=== PATIENT | male | born 1940 | race Caucasian/White ===

== ENCOUNTER 2019-05-19 14:06 | Outpatient (CLI) | payer OTHER, SELFPAY ==
[2019-05-19 16:36] LABS: Free T4 Free Thyroxine 1.68 ng/mL (0.78-2.19)
[2019-05-22 06:13] LABS: Thyroid Peroxidase Antibodies <1 IU/mL (<9)
[2019-05-23 05:10] LABS: Triiodothyronine T3 Free 2.3 pg/mL (2.3-4.2)
== END 2019-05-19 14:07 | disposition home or self-care (01) ==
LOC: ANHWCLAB 14:11
PROVIDERS: PCP Internal Medicine; Visit Provider Internal Medicine Endocrinology, Diabetes & Metabolism
DX: E03.9 Hypothyroidism, unspecified (principal); E04.9 Nontoxic goiter, unspecified
CPT/HCPCS: 36415; 84439; 84443; 84481; 86376

== ENCOUNTER 2019-07-02 13:27 | Outpatient (CLI) | payer MEDICARE, SELFPAY ==
--- NOTE | ~2019-07-02 | XR_ITS ---
EXAMINATION: XR chest 2V DATE: 07/02/2019 14:02 INDICATION: +PPD TECHNIQUE: PA and lateral views of the chest are obtained. COMPARISON: 06/25/2018 FINDINGS: There is a small right pleural effusion with slight increase in size since the comparison e xamination. Right basilar airspace opacities have also slightly increased. The left lung is clear. Th ere is no pneumothorax. There is mild thoracic spondylosis. IMPRESSION: 1. Small right pleural effusion with slight increase in size. 2. Minimal increase in right basilar airspace opacity, likely passive atelectasis. Reviewed, dictated and finalized at location A. IMPRESSION: 1. Small right pleural effusion with slight increase in size. 2. Minimal increase in right basilar airspace opacity, likely passive atelectas is.
== END 2019-07-02 13:28 | disposition home or self-care (01) ==
PROVIDERS: PCP Internal Medicine; Visit Provider Internal Medicine Nephrology
DX: R76.11 Nonspecific reaction to tuberculin skin test without active tuberculosis (principal); J90 Pleural effusion, not elsewhere classified
CPT/HCPCS: 71046

== ENCOUNTER 2019-07-15 13:58 | Outpatient (CLI) | payer MEDICARE, SELFPAY ==
--- NOTE | ~2019-07-15 | US_ITS ---
EXAMINATION: US art doppler w press LE BI EXAM DATE: 07/15/2019 14:59 INDICATION: Hypertension, stent. Peripheral arterial disease, nonhealing ulcer left lower extremity m edially. TECHNIQUE: Segmental pressures and plethysmographic and Doppler waveforms of the brachial and lower e xtremity arteries were obtained. There is no prior study for comparison. FINDINGS: Right and left brachial artery pressures of 174 mm Hg and 192 mm Hg, respectively, are concordant (no rmal difference <= 30 mmHg). RIGHT LEG: The ankle-brachial index (ITALO) is could not obtain (normal >= 0.9-1). The great toe-brachial index (TBI) is 0.10 (normal >= 0.65). The lower extremity ratios, segmental pressure gradients as follows; Proximal superficial femoral artery:- Could not obtain, stents ( mmHg). Distal superficial femoral artery: ----- Could not obtain, stents ( mmHg). Popliteal: Could not obtain ( mmHg). Dorsalis pedis: Could not obtain ( mmHg). Posterior tibial: Could not obtain ( mmHg). (Normal gradients <= 20-30 mmHg between adjacent levels on the same leg or the same levels on the two legs). Arterial waveforms are monophasic. LEFT LEG: The ankle-brachial index (ITALO) is could not obtain (normal >= 0.9-1). The great toe-brachial index (TBI) is could not obtain (normal >= 0.65). The lower extremity ratios, segmental pressure gradients as follows; Proximal superficial femoral artery:- 0.74 (143 mmHg). Distal superficial femoral artery: ----- Could not obtain ( mmHg). Popliteal: Could not obtain ( mmHg). Dorsalis pedis: Could not obtain ( mmHg). Posterior tibial: Could not obtain ( mmHg). (Normal gradients <= 20-30 mmHg between adjacent levels on the same leg or the same levels on the two legs). Arterial waveforms are monophasic. IMPRESSION: Could not cuff occlude arteries, could not obtain ABIs. Monophasic waveforms. Reviewed, dictated and finalized at location A.
== END 2019-07-15 13:59 | disposition home or self-care (01) ==
PROVIDERS: PCP Internal Medicine; Visit Provider Podiatrist Foot & Ankle Surgery
DX: I73.9 Peripheral vascular disease, unspecified (principal); L97.929 Non-pressure chronic ulcer of unspecified part of left lower leg with unspecified severity
CPT/HCPCS: 93923

== ENCOUNTER 2019-08-04 14:10 | Outpatient (CLI) | payer MEDICARE, SELFPAY ==
--- NOTE | ~2019-08-04 | US_ITS ---
EXAMINATION: US venous doppler [facility] DATE: 08/04/2019 14:47 INDICATION: Left lower limb pain and swelling. TECHNIQUE: Grayscale ultrasound images without and with compression and Doppler ultrasound images of the left lower extremity veins were obtained. COMPARISON: Ultrasound 06/04/2015 FINDINGS: The visualized portions of left common femoral vein, profunda (deep) femoral vein, femoral vein, popl iteal vein, peroneal veins, posterior tibial veins, and greater saphenous vein outflow are patent. Hoffmann bcutaneous edema is noted. IMPRESSION: 1. No deep venous thrombosis. Reviewed, dictated and finalized at location E.
== END 2019-08-04 14:11 | disposition home or self-care (01) ==
PROVIDERS: PCP Internal Medicine; Visit Provider Podiatrist Foot & Ankle Surgery
DX: M79.89 Other specified soft tissue disorders (principal); M79.662 Pain in left lower leg
CPT/HCPCS: 93971

== ENCOUNTER 2019-08-19 07:45 | Outpatient (RCR) | payer MEDICARE, SELFPAY ==
[2019-08-12 13:51] VITALS: BMI 25.9
== END 2019-10-26 07:57 | disposition home or self-care (01) ==
LOC: ANHWOC 07:45
PROVIDERS: Visit Provider Podiatrist Foot & Ankle Surgery
DX: E11.621 Type 2 diabetes mellitus with foot ulcer (principal); L97.529 Non-pressure chronic ulcer of other part of left foot with unspecified severity
CPT/HCPCS: 99212; G0463

== ENCOUNTER 2019-08-27 10:06 | Outpatient (CLI) | payer MEDICARE, SELFPAY ==
--- NOTE | ~2019-08-27 | US_ITS ---
US renal BI 08/27/2019 10:39 Procedure: Realtime transabdominal ultrasound of the kidneys and bladder. Indication: Hematuria Comparison: No prior studies for comparison. Findings: Renal echotexture is normal bilaterally without hydronephrosis, contour deforming mass or r enal calculus. The right kidney measures 10.3 cm and left kidney measures 9.6 cm. There is echogenic soft tissue along the bladder margin. Enlarged prostate gland.. Impression: 1: Echogenic soft tissue along the bladder margin, suspicious for transitional cell carcinoma. Recomm end further clinical evaluation. Reviewed, dictated and finalized at location A. Impression: 1: Echogenic soft tissue along the bladder margin, suspicious for transitional cell carcinoma. Recommend further clinical evaluation.
== END 2019-08-27 10:07 | disposition home or self-care (01) ==
LOC: ANHIMG 10:07
PROVIDERS: Visit Provider Urology
DX: R31.0 Gross hematuria (principal)
CPT/HCPCS: 76775

== ENCOUNTER 2019-09-01 10:51 | Observation (INO) | payer MEDICARE, SELFPAY ==
[2019-09-01] VITALS (17 sets, daily range): BP systolic 117–147; BP diastolic 47–84; PULSE 67–111; RESP 18–20; TEMP 36.8; O2SAT 92–100; BMI 24.3
--- NOTE | ~2019-09-01 | CT_ITS ---
EXAMINATION: CT abdomen pelvis wo con DATE: 09/01/2019 11:41 INDICATION: Diffuse abdominal pain, history of peritoneal dialysis, hematuria and bladder tumor TECHNIQUE: Computed tomography (CT) of the abdomen and pelvis was performed without intravenous contr ast. The dose-length product (DLP) was 377.45 mGy-cm. Automated exposure control and iterative recons truction technique were employed. COMPARISON: 10/04/2006 FINDINGS: There is a small to moderate-sized right pleural effusion which resultant passive right low er lobe atelectasis. The heart size is normal. Calcified bilateral hilar lymph nodes and calcified pu lmonary nodules are consistent with old granulomatous disease. Stones are present in the nondistended gallbladder. Punctate calcifications in an otherwise normal spleen likely represent healed granuloma tous disease. The liver, pancreas, and adrenal glands are normal. There is mild bilateral atrophy of the kidneys. There is calcified atherosclerosis of the aorta and many of the other arteries. A small volume of ascites is present. A peritoneal dialysis catheter enters the left lower quadrant and coils in the pelvis. Colonic diverticulosis is present without evidence of diverticulitis. There is severe lumbar spondylosis. No pathologically enlarged abdominal or pelvic lymph nodes are identified. Ther e is no free intraperitoneal gas or evidence of bowel obstruction. IMPRESSION: 1. No CT correlate for the patient's symptoms. 2. Small to moderate size right pleural effusion with passive atelectasis of the right lower lobe. Reviewed, dictated and finalized at location A. IMPRESSION: 1. No CT correlate for the patient's symptoms. 2. Small to moderate size right pleural effusion with passive atelectasis of th e right lower lobe.
[2019-09-01 11:09] LABS: Basophils Percent Auto 0.4 % (0.2-1.2); Eosinophils Absolute Auto 0.2 K/mm3 (0-0.3); Hematocrit 28.7 % (42.0-52.0); Hemoglobin 9.1 g/dL (14.0-18.0); Immature Granulocyte Absolute 0.02 K/mm3 (0.00-0.031); Immature Granulocyte Percent A 0.3 % (0-0.5); Lymphocytes Percent Auto 17.2 % (18.3-44.2); Mean Corpuscular HGB Conc 31.7 g/dl (32-36); Mean Corpuscular Hemoglobin 29.8 pg (26-34); Mean Corpuscular Volume 94.1 fl (80-100); Mean Platelet Volume 9.8 fl (7.4-10.4); Monocytes Absolute Auto 0.8 K/mm3 (0.1-0.6); Monocytes Percent Auto 10.9 % (2.6-8.5); Neutrophils Absolute Auto 4.8 K/mm3 (1.3-6.7); Neutrophils Percent Auto 68.2 % (45.5-73.1); Platelet Count Result 384 k/mm3 (150-375); Red Blood Count 3.05 M/mm3 (4.6-6.20); Red Cell Distribution Width 16.2 % (11.5-14.5)
--- NOTE | 2019-09-01 11:23 | ED.ABDPAIN ---
HPI - Abdominal Pain General Chief Complaint: Abdominal Pain <Karla Ellison PA-C - Last Filed: 09/01/19 13:45> Stated Complaint: ABD PAIN <Karla Ellison PA-C - Last Filed: 09/01/19 13:45> Time Seen by Provider: 09/01/19 10:53 <Karla Ellison PA-C - Last Filed: 09/01/19 13:45> Source: patient <SHENG Macias Last Filed: 09/01/19 13:45> Mode of arrival: EMS <SHENG Macias Last Filed: 09/01/19 13:45> Limitations: no limitations <Karla Ellison PA-C - Last Filed: 09/01/19 13:45> History of Present Illness HPI narrative: This is a 78-year-old male that presents the emergency department for abdominal pain x3 days. Reports diffuse abdominal pain. Associated with nausea. Reports he does peritoneal dialysis nightly. His wooden box maker is Dr. Joseph. Reports he is currently seeing a human resources benefits coordinator for a wound to his left great toe. Also reports he was supposed to have a bladder tumor removed by Dr. John last Saturday, but this was postponed. Reports he has been having hematuria due to bladder tumor. Reports a mild temperature a couple of days ago. Denies vomiting, diarrhea, hematochezia, dysuria. <Karla Ellison PA-C - Last Filed: 09/01/19 13:45> Related Data Home Medications: Home Medications Medication Instructions Recorded Confirmed B complex-vitamin C-folic acid 0.8 1 tablet PO DAILY 03/24/19 09/01/19 mg tablet atorvastatin 80 mg tablet 80 mg PO DAILY 03/24/19 09/01/19 carvedilol 25 mg tablet 25 mg PO Q12H 03/24/19 09/01/19 clopidogrel 75 mg tablet 75 mg PO DAILY 03/24/19 09/01/19 fluticasone propionate 50 1 spray NASAL DAILY 03/24/19 09/01/19 mcg/actuation nasal spray,suspension gabapentin 100 mg capsule 200 mg PO DAILY 03/24/19 09/01/19 insulin regular human 100 unit/mL 1 sliding scale dose SUB-Q 03/24/19 09/01/19 injection solution USEASDIRECTD torsemide 100 mg tablet 100 mg PO QAM 03/24/19 09/01/19 acetaminophen 325 mg capsule 325 mg PO Q6H PRN 05/14/19 09/01/19 cholecalciferol (vitamin D3) 50 50 mcg PO DAILY 05/14/19 09/01/19 mcg (2,000 unit) capsule Lacto.acidophilus-Bif.animalis 1 cap PO DAILY 08/24/19 09/01/19 [Probiotic] amlodipine 2.5 mg PO DAILY 08/24/19 09/01/19 aspirin [Aspir-81] 81 mg PO DAILY 08/24/19 09/01/19 magnesium oxide 400 mg PO DAILY 08/24/19 09/01/19 potassium chloride 20 meq PO DAILY 08/24/19 09/01/19 <Karla Ellison PA-C - Last Filed: 09/01/19 13:45> Allergies/Adverse Reactions: Allergies Allergy/AdvReac Type Severity Reaction Status Date / Time amoxicillin Allergy Unknown Dizziness Verified 09/01/19 10:52 Penicillins Allergy Unknown Dizziness Verified 09/01/19 10:52 <Karla Ellison PA-C - Last Filed: 09/01/19 13:45> Review of Systems Review of Systems: Narrative: CONSTITUTIONAL: Denies fever GASTROINTESTINAL: Reports abdominal pain, nausea. Denies vomiting, or diarrhea. GENITOURINARY: Reports hematuria. Denies dysuria <Karla Ellison PA-C - Last Filed: 09/01/19 13:45> All systems reviewed & are unremarkable except as noted in HPI and below <Karla Ellison PA-C - Last Filed: 09/01/19 13:45> PMFSH Social History Social History: Social History Smoking status: Never smoker Alcohol intake: never Substance use: never Gender identity (if verbalized by the patient): Male <SHENG Macias Last Filed: 09/01/19 13:45> Exam Narrative: Exam Narrative: GENERAL: Chronically ill-appearing, well-nourished, and in no acute distress. HEAD: Normocephalic, atraumatic. EYES: EOMI. CHEST: Clear to auscultation. No respiratory distress. No wheezes rales or rhonchi HEART: Regular rate and rhythm. No murmur heard. Normal peripheral pulses. ABDOMEN: Soft, nondistended, normal active bowel sounds. Tender palpation throughout the abdomen, without guarding. Peritoneal dialysis catheter in place without surrounding erythema or ed
[2019-09-01 11:30] LABS: Lactic Acid Reflex 1.1 mmol/L (0.7-2.1)
[2019-09-01 11:36] LABS: Alanine Aminotransferase 42 U/L (4-50); Albumin Level 2.7 g/dL (3.5-5.1); Alkaline Phosphatase 106 U/L (38-126); Aspartate Amino Transferase 56 U/L (17-59); Bilirubin,Total 0.2 mg/dL (0.2-1.3); Blood Urea Nitrogen 21 mg/dL (9-20); Calcium 7.7 mg/dL (8.4-10.2); Carbon Dioxide 33 mmol/L (22-30); Chloride 93 mmol/L (98-107); Estimated CRCL calculation 13 ml/min; Estimated Glomerular Filt Rate 16; Glucose 157 mg/dL (75-110); Potassium 3.2 mmol/L (3.4-5.0); Sodium 131 mmol/L (137-145)
[2019-09-01] MEDS: ONDANSETRON INJ 4 MG/2 ML VIAL IV PUSH ×2 (11:42→23:13)
[2019-09-01] MEDS: MORPHINE SULFATE 2 MG/ML INJ IV PUSH (11:42)
[2019-09-01 11:50] LABS: CRP 25.7 mg/dL (<1.0)
--- NOTE | 2019-09-01 12:06 | PC.NURSE ---
CALLED LAB AND ADDED ON THE BNP ORDER
[2019-09-01] MEDS: POTASSIUM CHLORIDE 20 MEQ TABLET PO (12:13)
[2019-09-01 12:25] LABS: NT Pro B Type Natriuretic Pept 7430 PG/ML (5-100)
[2019-09-01 18:27] LABS: Appearance Peritoneal Fluid Cloudy (Clear); Source Peritoneal Fluid Peritoneal Fluid
[2019-09-01 18:28] LABS: Color Peritoneal Fluid White (Colorless); Lymphocytes Peritoneal Fluid 2 %; Mesothelial Cells Peritoneal Fluid 1 %; Monocytes Peritoneal Fluid 1 %; Neutrophils Peritoneal Fluid 96 % (0-25); Nucleated Cells Peritoneal Flu 6591 /uL (0-500); RBC Peritoneal Fluid 0 /uL (0-100000)
[2019-09-01 19:09] LABS: Glucose Point of Care 109 (65-105)
--- NOTE | 2019-09-01 20:07 | PC.NURSE ---
This patient, Ángel Fung, was admitted to [facility] Surg Room 313-01. Patient/family oriented to hospital policies and general routines including ID bracelet, bed and alarms, visiting hours, pain management, procedures, bathroom and other care routines, personal items, smoking policy, room service/diet, and visiting hours. Valuables list has been completed. Information on how to activate the Rapid Response Team has been discussed. Patient/Family are encouraged to report perceived risks to care and to ask questions if they do not understand what they are told or what they should do.
--- NOTE | 2019-09-01 20:30 | PM.IMHP ---
H&P: HPI History of Present Illness Chief complaint: Abdominal pain. Narrative: Ángel Fung is a 78-year-old male with end-stage renal disease on peritoneal dialysis, insulin-dependent diabetes, hypertension, coronary artery disease, peripheral vascular disease, and chronic anemia who presented to the emergency department earlier this morning for evaluation of abdominal pain. He notes a gradual onset of diffuse abdominal pain beginning last afternoon. At the outset he described a moderate aching discomfort, however this morning he was experiencing sharp shooting pain throughout the abdomen. His abdomen is also been a bit bloated. He had similar symptoms a couple of years ago when he was hospitalized at [facility] for what sounds like diverticulitis. CT scan of the abdomen and pelvis today did not demonstrate any acute findings, but given his continued and diffuse abdominal pain it was thought that perhaps he may have spontaneous bacterial peritonitis and he is being admitted in this setting. His abdominal pain is much better after receiving IV pain medication in the emergency department, which brought the pain from 10/25 to 05/25. Peritoneal fluid was obtained this evening for culture, the patient notes that it was cloudy. He is comfortable at the time my evaluation and really does not have any complaints. He does share with me that peritoneal fluid was drawn he had a low-grade fever over the weekend, up to 100? and had night sweats last evening. He is always cold, thus he cannot say whether not he has had chills. He tells me that he is always cold, and that is unchanged. His appetite has been as per usual and he maintains a steady weight, typically only fluctuating 4 pounds or so. He has not had nausea or vomiting. He still urinates and denies dysuria. His bowel movements have been normal. Review of Systems Review of Systems: Narrative: Twelve systems were reviewed with pertinent positives and negatives as per HPI. He denies sinus congestion, rhinorrhea, otalgia, and odynophagia. No chest pain or shortness of breath. He denies recent travel and sick contacts. He has been passing gas without issue. No GERD symptoms. He has had intermittent hematuria over the past month and had a cystoscopy per Dr. John recently which showed a bladder tumor, and he has an upcoming surgery for further management. At the time of the initial evaluation, he was also found to have urinary tract infection for which she was treated with Bactrim. Also of note, he has noticed a lump in his right breast, and has been referred to Dr. Biggs for further evaluation. His primary care provider thinks that it may be due to 1 of his medications. His diabetes is well controlled, but he notes that occasionally his glucose will be higher than usual depending on what dialysate he uses. No blurry vision, polydipsia, or polyuria. He is currently seeing Dr. Juarez and the wound care nurses for a left great toe ulcer. Except as documented, all other systems were reviewed and are negative. [facility] Past Medical History Medical History (Updated 09/01/19 @ 23:56 by Emily Vines PA-C) Anemia of chronic disease Arthritis Back pain Bladder tumor Scheduled for cystoscopy with resection of bladder tumor per Dr. John in summer 2019. Coronary artery disease With history of stent. Diabetic peripheral neuropathy End-stage renal disease on peritoneal dialysis Glaucoma Glaucoma Hearing loss Hyperlipidemia Hypertension Hypothyroidism Insulin dependent type 2 diabetes mellitus Osteomyelitis (~05/2015) Peripheral arterial disease History of right lower extremity stent. Surgical History Surgical History (Updated 09/01/19 @ 17:21 by Emily Vines PA-C) Amputation of fifth toe of right foot (~05/2015) History of heart artery stent (~10/2014) History of vascular surgery Right lower extremity stent. Status post cataract extraction Hailey
[2019-09-01] MEDS: carvediloL 25 MG TABLET PO (21:14)
[2019-09-01 21:31] LABS: Glucose Point of Care 133 (65-105)
[2019-09-01 22:47] LABS: Add Urine Microscopic? YES; Appearance Urine Clear (Clear); Bacteria Urine Trace /hpf; Bilirubin Urine Negative (Negative); Blood Urine 2+ (Negative); Color Urine Yellow (Yellow); Glucose Urine UA Negative (Negative); Ketones Urine Negative (Negative); Leukocyte Esterase Ur Negative LEU/UL (Negative); Mucus Urine Rare /lpf; Nitrate Urine Negative (Negative); Protein Urine 2+ mg/dL (Negative); RBC Urine >75 /hpf (0-2); Specific Grav Ur 1.013 (1.001-1.035); Urobilinogen Urine Negative mg/dL (<2.0)
[2019-09-02] VITALS (7 sets, daily range): BP systolic 105–128; BP diastolic 43–78; PULSE 52–71; RESP 16–18; TEMP 36.4–36.7; O2SAT 97–100
[2019-09-02] MEDS: LEVOTHYROXINE SODIUM 75 MCG TABLET PO (05:30)
[2019-09-02 06:39] LABS: Basophils Percent Auto 0.5 % (0.2-1.2); Eosinophils Absolute Auto 0.2 K/mm3 (0-0.3); Eosinophils Percent Auto 2.2 % (0-4.4); Hematocrit 25.8 % (42.0-52.0); Hemoglobin 8.2 g/dL (14.0-18.0); Immature Granulocyte Absolute 0.04 K/mm3 (0.00-0.031); Immature Granulocyte Percent A 0.5 % (0-0.5); Lymphocytes Absolute Auto 1.59 K/mm3 (0.9-3.2); Mean Corpuscular HGB Conc 31.8 g/dl (32-36); Mean Corpuscular Hemoglobin 29.9 pg (26-34); Mean Corpuscular Volume 94.2 fl (80-100); Mean Platelet Volume 9.6 fl (7.4-10.4); Monocytes Absolute Auto 0.9 K/mm3 (0.1-0.6); Monocytes Percent Auto 10.3 % (2.6-8.5); Neutrophils Absolute Auto 5.6 K/mm3 (1.3-6.7); Neutrophils Percent Auto 67.5 % (45.5-73.1); Platelet Count Result 374 k/mm3 (150-375); Red Blood Count 2.74 M/mm3 (4.6-6.20); Red Cell Distribution Width 15.9 % (11.5-14.5); White Blood Count 8.4 K/mm3 (4.5-10.0)
[2019-09-02 06:53] LABS: Blood Urea Nitrogen 23 mg/dL (9-20); Calcium 7.5 mg/dL (8.4-10.2); Carbon Dioxide 34 mmol/L (22-30); Chloride 94 mmol/L (98-107); Estimated CRCL calculation 12 ml/min; Estimated Glomerular Filt Rate 15; Glucose 117 mg/dL (75-110); Magnesium 1.6 mg/dL (1.6-2.3); Potassium 3.6 mmol/L (3.4-5.0); Sodium 130 mmol/L (137-145)
--- NOTE | 2019-09-02 08:10 | PM.CNNEP ---
Assessment and Plan Assessment and plan (1) Abdominal pain: Qualifiers: Abdominal location: generalized Qualified Code(s): R10.84 - Generalized abdominal pain Code(s): R10.9 - Unspecified abdominal pain Status: Acute Assessment and Plan: The patient has cloudy fluid, elevated white cells in the fluid, and abdominal pain. This is most likely dialysis associated peritonitis. Unfortunately he took antibiotics before he came in. This may affect culture results. We will see what grows. He is currently on vancomycin and Fortaz. Will re-dose the vancomycin in 5 days and give the Fortaz daily in the last bag. I do not think we need to continue the because he does not have a fever or a white count. He did get blood cultures and we can restart them if the cultures come back positive but I think this is low likelihood. He is already getting an cephalosporin intraperitoneal a so I do not want to double it up with the IV cephalosporin. 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 We will follow this. (3) Type 2 diabetes mellitus: Code(s): E11.9 - Type 2 diabetes mellitus without complications Status: Acute Assessment and Plan: The patient is on Accu-Cheks and sliding-scale insulin. (4) Coronary artery disease: Code(s): I25.10 - Atherosclerotic heart disease of [place] coronary artery without angina pectoris Status: Acute Assessment and Plan: The patient has no chest pain or shortness of breath. (5) End-stage renal disease on peritoneal dialysis: Code(s): N18.6 - End stage renal disease; Z99.2 - Dependence on renal dialysis Status: Acute Assessment and Plan: Continue peritoneal dialysis History of Present Illness Reason for Consult Consult date: 09/03/19 Chief Complaint Chief complaint: Abdominal pain. History of Present Illness Narrative: Ángel is a very pleasant 78-year-old gentleman was multiple medical problems including hypertension, diabetes, hyperlipidemia, peripheral vascular disease status post bilateral lower extremity stents, coronary disease status post stents in his heart, hypothyroidism, and end-stage renal disease on peritoneal dialysis. He has been on peritoneal dialysis for about 3 years. He has not had any complications. He did have 1 episode of diverticulitis which cause a sympathetic peritoneal leukocytosis however had not had an episode of peritonitis otherwise. The patient says that he was well until Saturday when he was having some abdominal discomfort. He did not call the dialysis nurse. He did not check his fluid. On Saturday the patient had much worse abdominal discomfort. He felt that me he might have an infection. He did not check his fluid again and he did not call the nurse. However eat he did have some antibiotics which he started taking. On Saturday and Saturday he felt gradually a little bit better but then yesterday the patient felt bad again with the abdominal pain. Also he was unable to drain his fluid in the morning. So he decided to go to the emergency room. In the ER he had abdominal pain. He had a CT scan which showed no diverticulitis. The dialysis nurse was called in to check the fluid. They called the on-call ship fastener who ordered vancomycin and Fortaz intraperitoneal overnight. Today he feels a little better. He does not remember having any issue where he might have had contamination. He does have an ulcer on his left foot which he has been fighting along with the wound clinic. This was mostly local wound care. It was apparently not felt to be infected because he has not been on antibiotics. His end-stage renal disease is from diabetes h
--- NOTE | 2019-09-02 08:21 | PM.EVENT ---
Event Note Event Note Event Note: On peritoneal dialysis and tolerating it well. Will recheck a white count in a few days He was seen at 8:00 a.m.
[2019-09-02] MEDS: ASPIRIN 81 MG ENTERIC TABLET PO (08:37)
[2019-09-02] MEDS: GABAPENTIN 100 MG CAPSULE 200 MG PO (08:38)
[2019-09-02] MEDS: TORSEMIDE 20 MG TABLET 100 MG PO (08:38)
[2019-09-02] MEDS: CHOLECALCIFEROL 1,000 UNIT TABLET 2000 UNITS PO (08:39)
[2019-09-02] MEDS: FLUTICASONE PROPIONATE 0.05% NA SPR 16 GM BTL (*BKC) 1 SPRAY NASAL (08:39)
[2019-09-02] MEDS: POTASSIUM CHLORIDE 20 MEQ TABLET.ER PO (08:41)
[2019-09-02] MEDS: ACIDOPHILUS/BULGARICUS CHEWABLE TABLET 1 TABLET PO (08:42)
[2019-09-02] MEDS: VITAMIN B CMPLX/VIT C/FOLIC AC 1 CAPSULE 1 CAP PO (08:42)
[2019-09-02] MEDS: ATORVASTATIN 40 MG TABLET 80 MG PO (08:42)
[2019-09-02] MEDS: carvediloL 25 MG TABLET PO ×2 (08:43→20:51)
[2019-09-02] MEDS: MAGNESIUM OXIDE 400 MG TABLET PO (08:43)
[2019-09-02] MEDS: CLOPIDOGREL BISULFATE 75 MG TABLET PO (08:44)
[2019-09-02] MEDS: AMLODIPINE BESYLATE 2.5 MG TABLET PO (08:44)
[2019-09-02 09:13] LABS: Glucose Point of Care 89 (65-105)
[2019-09-02 09:16] LABS: Hemoglobin A1C 6.2 % (<5.7)
[2019-09-02 12:45] LABS: Glucose Point of Care 125 (65-105)
[2019-09-02 13:47] LABS: Free T4 Free Thyroxine Reflex 1.49 ng/dL (0.78-2.19)
[2019-09-02 15:02] LABS: Total Triiodothyronine (T3) 0.61 NG/ML (0.97-1.69)
--- NOTE | 2019-09-02 16:20 | PM.IMPN ---
Progress Note: A&P Assessment and Plan (1) Diffuse abdominal pain: Code(s): R10.84 - Generalized abdominal pain Status: Acute Assessment and Plan: No acute findings noted on CT of the abdomen and pelvis. He had a low-grade fever over the weekend, but has a normal white count at this time without a left shift. His CRP, however, is markedly elevated 25.7 and , pending Gram stain and culture of peritoneal fluid antibiotics have been started (2) End-stage renal disease on peritoneal dialysis: Code(s): N18.6 - End stage renal disease; Z99.2 - Dependence on renal dialysis Status: Acute Assessment and Plan: Nephrology seeing for peritoneal dialysis orders and added to dialysate (3) Anemia of chronic disease: Code(s): D63.8 - Anemia in other chronic diseases classified elsewhere Status: Acute Assessment and Plan: Hemoglobin and hematocrit are stable on review of previous labs., will check Fe studies too (4) Electrolyte abnormality: Code(s): E87.8 - Other disorders of electrolyte and fluid balance, not elsewhere classified Status: Acute Assessment and Plan: Mild electrolyte abnormalities including hyponatremia, hypokalemia, and hypochloremia. (5) Hypertension: Qualifiers: Hypertension type: secondary to endocrine disorders Qualified Code(s): I15.2 - Hypertension secondary to endocrine disorders Code(s): I10 - Essential (primary) hypertension Status: Acute Assessment and Plan: Blood pressures were reviewed and they are stable. Continue antihypertensives and monitor daily. (6) Coronary artery disease: Code(s): I25.10 - Atherosclerotic heart disease of [place] coronary artery without angina pectoris Status: Acute Assessment and Plan: No acute issues. Continue aspirin, clopidogrel, and statin. (7) Hypothyroidism: Qualifiers: Hypothyroidism type: acquired Qualified Code(s): E03.9 - Hypothyroidism, unspecified Code(s): E03.9 - Hypothyroidism, unspecified Status: Acute Assessment and Plan: Continue levothyroxine and check TSH. (8) Insulin dependent type 2 diabetes mellitus: Code(s): E11.9 - Type 2 diabetes mellitus without complications; Z79.4 - nursing home (current) use of insulin Status: Acute Assessment and Plan: Continue insulin and hemoglobin A1c.only 6.2 Initiate sliding scale insulin, Accu-Cheks, and hypoglycemic protocol. Subjective Date/time seen: 09/02/19 16:20 Interval history: Date of visit 09/01. 78-year-old hypertensive type 2 diabetic with end-stage renal disease on peritoneal dialysis presented with abdominal discomfort 3-4 days duration and found to have peritonitis. Peritoneal fluid from dialysate has been cultured and is receiving intra-abdominal antibiotics with his dialysis. Feels better today less abdominal pain and had BM yesterday. No fever chills Exam Narrative: Exam Narrative: General: Well-developed elderly male supine in bed watching television in no distress. HEENT: Pupil equal reactive to light, sclera anicteric Neck: Supple. Respiratory: Diminished at the right base, otherwise clear to auscultation. Cardiovascular: Regular rate and rhythm with S1-S2. 2/6 systolic murmur best heard at the upper sternal border. Gastrointestinal: Abdomen is slightly distended and tender to percussion and palpation throughout. Catheter dialysis site is clean and dry. . Bowel sounds are present. No voluntary guarding or rebound tenderness. Skin: Warm, dry, a
[2019-09-02 17:17] LABS: Glucose Point of Care 127 (65-105)
[2019-09-02 21:00] LABS: Glucose Point of Care 199 (65-105)
[2019-09-03] MEDS: LEVOTHYROXINE SODIUM 75 MCG TABLET PO (05:33)
[2019-09-03 06:00] VITALS: BP 152/54; PULSE 70; RESP 16; TEMP 36.7; O2SAT 96
[2019-09-03 06:32] LABS: Basophils Absolute Auto 0.1 K/mm3 (0.0-0.1); Basophils Percent Auto 0.6 % (0.2-1.2); Eosinophils Absolute Auto 0.3 K/mm3 (0-0.3); Eosinophils Percent Auto 4.3 % (0-4.4); Hematocrit 27.9 % (42.0-52.0); Hemoglobin 8.7 g/dL (14.0-18.0); Immature Granulocyte Absolute 0.03 K/mm3 (0.00-0.031); Immature Granulocyte Percent A 0.4 % (0-0.5); Lymphocytes Absolute Auto 1.76 K/mm3 (0.9-3.2); Lymphocytes Percent Auto 22.8 % (18.3-44.2); Mean Corpuscular HGB Conc 31.2 g/dl (32-36); Mean Corpuscular Hemoglobin 29.8 pg (26-34); Mean Corpuscular Volume 95.5 fl (80-100); Monocytes Absolute Auto 0.8 K/mm3 (0.1-0.6); Monocytes Percent Auto 10.6 % (2.6-8.5); Neutrophils Absolute Auto 4.7 K/mm3 (1.3-6.7); Neutrophils Percent Auto 61.3 % (45.5-73.1); Platelet Count Result 398 k/mm3 (150-375); Red Blood Count 2.92 M/mm3 (4.6-6.20); Red Cell Distribution Width 15.9 % (11.5-14.5); White Blood Count 7.7 K/mm3 (4.5-10.0)
[2019-09-03 06:48] LABS: Albumin Level 2.3 g/dL (3.5-5.1); Blood Urea Nitrogen 22 mg/dL (9-20); Calcium 7.7 mg/dL (8.4-10.2); Carbon Dioxide 31 mmol/L (22-30); Chloride 93 mmol/L (98-107); Estimated CRCL calculation 13 ml/min; Estimated Glomerular Filt Rate 17; Glucose 205 mg/dL (75-110); Phosphorus 3.2 mg/dL (2.5-4.5); Potassium 3.3 mmol/L (3.4-5.0); Sodium 128 mmol/L (137-145)
[2019-09-03 07:02] LABS: Iron 59 ug/dL (49-181)
[2019-09-03 07:12] LABS: Percent Iron Saturation 54 % (20-50)
[2019-09-03 08:24] LABS: Ferritin > 2000.00 ng/mL (11.1-264)
[2019-09-03] MEDS: FLUTICASONE PROPIONATE 0.05% NA SPR 16 GM BTL (*BKC) 1 SPRAY NASAL (08:43)
[2019-09-03] MEDS: AMLODIPINE BESYLATE 2.5 MG TABLET PO (08:44)
[2019-09-03] MEDS: ACIDOPHILUS/BULGARICUS CHEWABLE TABLET 1 TABLET PO (08:44)
[2019-09-03] MEDS: CHOLECALCIFEROL 1,000 UNIT TABLET 2000 UNITS PO (08:44)
[2019-09-03] MEDS: ASPIRIN 81 MG ENTERIC TABLET PO (08:44)
[2019-09-03 08:45] VITALS: PULSE 64
[2019-09-03] MEDS: ATORVASTATIN 40 MG TABLET 80 MG PO (08:45)
[2019-09-03] MEDS: carvediloL 25 MG TABLET PO (08:45)
[2019-09-03] MEDS: GABAPENTIN 100 MG CAPSULE 200 MG PO (08:46)
[2019-09-03] MEDS: MAGNESIUM OXIDE 400 MG TABLET PO (08:46)
[2019-09-03] MEDS: POTASSIUM CHLORIDE 20 MEQ TABLET.ER PO (08:46)
[2019-09-03] MEDS: CLOPIDOGREL BISULFATE 75 MG TABLET PO (08:46)
[2019-09-03] MEDS: VITAMIN B CMPLX/VIT C/FOLIC AC 1 CAPSULE 1 CAP PO (08:47)
[2019-09-03] MEDS: TORSEMIDE 20 MG TABLET 100 MG PO (08:47)
[2019-09-03 09:05] LABS: Glucose Point of Care 134 (65-105)
[2019-09-03 10:47] LABS: Appearance Peritoneal Fluid Clear (Clear); Color Peritoneal Fluid Colorless (Colorless); Lymphocytes Peritoneal Fluid 9 %; Monocytes Peritoneal Fluid 13 %; Neutrophils Peritoneal Fluid 72 % (0-25); Nucleated Cells Peritoneal Flu 843 /uL (0-500); RBC Peritoneal Fluid 11 /uL (0-100000); Source Peritoneal Fluid Peritoneal Fluid
[2019-09-03 10:48] LABS: Macrophages Peritoneal Fluid 3 %; Mesothelial Cells Peritoneal Fluid 3 %
[2019-09-03 12:29] LABS: Glucose Point of Care 149 (65-105)
--- NOTE | 2019-09-03 13:29 | PM.PNNEP ---
Progress Note: A&P Assessment and Plan (1) Abdominal pain: Qualifiers: Abdominal location: generalized Qualified Code(s): R10.84 - Generalized abdominal pain Code(s): R10.9 - Unspecified abdominal pain Status: Acute Assessment and Plan: The patient has dialysis associated peritonitis. CT negative for diverticulitis Cell count has dropped dramatically from 6591 to 843 Showed no growth. G stain was negative. This may be because he took his antibiotics before he came into the hospital. Will continue with vancomycin and ceftazidime intraperitoneally Patient can be discharged from the kidney standpoint. I told him to call Amanda. I will give her orders for the dosing of the vancomycin and Fortaz. 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 We will follow this. (3) Type 2 diabetes mellitus: Code(s): E11.9 - Type 2 diabetes mellitus without complications Status: Acute Assessment and Plan: The patient is on Accu-Cheks and sliding-scale insulin. (4) Coronary artery disease: Code(s): I25.10 - Atherosclerotic heart disease of [place] coronary artery without angina pectoris Status: Acute Assessment and Plan: The patient has no chest pain or shortness of breath. (5) End-stage renal disease on peritoneal dialysis: Code(s): N18.6 - End stage renal disease; Z99.2 - Dependence on renal dialysis Status: Acute Assessment and Plan: Continue peritoneal dialysis Subjective Date/time seen: 09/03/19 13:29 Interval history: Ángel is feeling better today. Belly pain is much better. He is eager for discharge. Review of Systems Cardiovascular: Cardiovascular: Reports no additional cardiovascular complaints Respiratory: Respiratory: Reports no additional respiratory complaints Gastrointestinal: Gastrointestinal: Reports no additional gastrointestinal complaints Genitourinary: Genitourinary: Reports no additional male genitourinary complaints Exam Narrative: Exam Narrative: WDWN in NAD skin no rash head ncat lungs clear cor reg no rub abd BS+ much less tender and soft ext no edema. Objective Data Vital Signs Vital Signs: Vital Signs - 24 hr 09/02/19 14:00 09/02/19 17:56 09/02/19 20:50 Temperature 36.6 C 36.6 C Pulse Rate 52 L 52 L 60 Respiratory Rate 18 18 Blood Pressure 105/51 L 105/51 L 111/78 Pulse Oximetry 100 09/02/19 20:51 09/02/19 22:00 09/03/19 06:00 Temperature 36.4 C 36.7 C Pulse Rate 60 71 70 Respiratory Rate 16 16 Blood Pressure 128/62 152/54 H Pulse Oximetry 97 96 09/03/19 08:45 Temperature Pulse Rate 64 Respiratory Rate Blood Pressure Pulse Oximetry Intake/Output Intake/Output: Intake & Output 08/31/19 09/01/19 09/02/19 09/03/19 23:59 23:59 23:59 23:59 Intake Total 490 640 270 Output Total 100 -299 Balance 490 540 569 Meds/Results Medications: Active Medications Generic Name Dose Route Start Last Admin Trade Name Freq PRN Reason Stop Dose Admin Acetaminophen 325 mg 09/01/19 17:24 Tylenol Tablet PO Q6H PRN Pain Amlodipine Besylate 2.5 mg 09/02/19 09:00 09/03/19 08:44 Norvasc PO 2.5 mg DAILY JOHNATHAN Administration Aspirin 81 mg 09/02/19 09:00 09/03/19 08:44 Aspirin Ec PO 81 mg DAILY JOHNATHAN Administration Atorvastatin Calcium 80 mg 09/02/19 09:00 09/03/19 08:45 Lipitor PO 80 mg DAILY JOHNATHAN Administration Carvedilol 25 mg 09/01/19 21:00 09/03/19 08:45 Coreg PO 25 mg Q12HR JOHNATHAN Administration Clopidogrel Bisulfate 75 mg 09/02/19 09:00 09/03/19 08:46 Plavix PO 75 mg DAILY JOHNATHAN Administration Dextrose 12.5 gm 09/01/19 17:25
[2019-09-03 14:00] VITALS: BP 135/47; PULSE 59; RESP 18; TEMP 37.1; O2SAT 98
--- NOTE | 2019-09-04 18:03 | P.DS_ITS ---
DS: Admitting Diagnosis Admitting Diagnosis Admitting Diagnosis: Generalized abdominal pain DS: Discharge Diagnosis Discharge Diagnosis (1) Diffuse abdominal pain: Code(s): R10.84 - Generalized abdominal pain Status: Acute Assessment and Plan: * No acute findings noted on CT of the abdomen and pelvis. * He had a low-grade fever over the weekend, but has a normal white count at this time without a left shift. His CRP, however, is markedly elevated 25.7 * Cultures of blood and peritoneal fluid negative but he had taken an oral antibiotic at home, peritoneal fluid did show leukocytosis with 95% segs compatible with peritonitis * Patient was treated with an intra-abdominal antibiotics and has dialysate and white count fell and abdominal pain subsided. * Hemoglobin continue enter abdominal antibiotics through his dialysis center arranged by Nephrology Dr. Aguilar (2) End-stage renal disease on peritoneal dialysis: Code(s): N18.6 - End stage renal disease; Z99.2 - Dependence on renal dialysis Status: Acute Assessment and Plan: * Nephrology saw for peritoneal dialysis orders and added to dialysate (3) Anemia of chronic disease: Code(s): D63.8 - Anemia in other chronic diseases classified elsewhere Status: Acute Assessment and Plan: * Hemoglobin and hematocrit are stable on review of previous labs., * 8.7 at discharge and iron studies were compatible with anemia chronic disease with high ferritin level iron TIBC (4) Electrolyte abnormality: Code(s): E87.8 - Other disorders of electrolyte and fluid balance, not elsewhere classified Status: Acute Assessment and Plan: * Mild electrolyte abnormalities including hyponatremia, hypokalemia, and hypochloremia. Followed by Nephrology * (5) Hypertension: Qualifiers: Hypertension type: secondary to endocrine disorders Qualified Code(s): I15.2 - Hypertension secondary to endocrine disorders Code(s): I10 - Essential (primary) hypertension Status: Acute Assessment and Plan: * Blood pressures were reviewed and they are stable. * Continue is low-dose amlodipine on discharge. (6) Coronary artery disease: Code(s): I25.10 - Atherosclerotic heart disease of [place] coronary artery without angina pectoris Status: Acute Assessment and Plan: * No acute issues. * Continue aspirin, clopidogrel, and statin. (7) Hypothyroidism: Qualifiers: Hypothyroidism type: acquired Qualified Code(s): E03.9 - Hypothyroidism, unspecified Code(s): E03.9 - Hypothyroidism, unspecified Status: Acute Assessment and Plan: * Continue levothyroxine and TSH. Normal (8) Insulin dependent type 2 diabetes mellitus: Code(s): E11.9 - Type 2 diabetes mellitus without complications; Z79.4 - custodial (current) use of insulin Status: Acute Assessment and Plan: * Continue insulin and hemoglobin A1c.only 6.2 * Sliding scale while here and his usual insulin regime restarted on discharge DS: Summary Hospital Course Hospital Course: 78-year-old hypertensive type 2 diabetic wit
--- NOTE | 2019-09-04 18:03 | PM.DS ---
DS: Admitting Diagnosis Admitting Diagnosis Admitting Diagnosis: Generalized abdominal pain DS: Discharge Diagnosis Discharge Diagnosis (1) Diffuse abdominal pain: Code(s): R10.84 - Generalized abdominal pain Status: Acute Assessment and Plan: No acute findings noted on CT of the abdomen and pelvis. He had a low-grade fever over the weekend, but has a normal white count at this time without a left shift. His CRP, however, is markedly elevated 25.7 Cultures of blood and peritoneal fluid negative but he had taken an oral antibiotic at home, peritoneal fluid did show leukocytosis with 95% segs compatible with peritonitis Patient was treated with an intra-abdominal antibiotics and has dialysate and white count fell and abdominal pain subsided. Hemoglobin continue enter abdominal antibiotics through his dialysis center arranged by Nephrology Dr. Aguilar (2) End-stage renal disease on peritoneal dialysis: Code(s): N18.6 - End stage renal disease; Z99.2 - Dependence on renal dialysis Status: Acute Assessment and Plan: Nephrology saw for peritoneal dialysis orders and added to dialysate (3) Anemia of chronic disease: Code(s): D63.8 - Anemia in other chronic diseases classified elsewhere Status: Acute Assessment and Plan: Hemoglobin and hematocrit are stable on review of previous labs., 8.7 at discharge and iron studies were compatible with anemia chronic disease with high ferritin level iron TIBC (4) Electrolyte abnormality: Code(s): E87.8 - Other disorders of electrolyte and fluid balance, not elsewhere classified Status: Acute Assessment and Plan: Mild electrolyte abnormalities including hyponatremia, hypokalemia, and hypochloremia. Followed by Nephrology (5) Hypertension: Qualifiers: Hypertension type: secondary to endocrine disorders Qualified Code(s): I15.2 - Hypertension secondary to endocrine disorders Code(s): I10 - Essential (primary) hypertension Status: Acute Assessment and Plan: Blood pressures were reviewed and they are stable. Continue is low-dose amlodipine on discharge. (6) Coronary artery disease: Code(s): I25.10 - Atherosclerotic heart disease of [place] coronary artery without angina pectoris Status: Acute Assessment and Plan: No acute issues. Continue aspirin, clopidogrel, and statin. (7) Hypothyroidism: Qualifiers: Hypothyroidism type: acquired Qualified Code(s): E03.9 - Hypothyroidism, unspecified Code(s): E03.9 - Hypothyroidism, unspecified Status: Acute Assessment and Plan: Continue levothyroxine and TSH. Normal (8) Insulin dependent type 2 diabetes mellitus: Code(s): E11.9 - Type 2 diabetes mellitus without complications; Z79.4 - correction (current) use of insulin Status: Acute Assessment and Plan: Continue insulin and hemoglobin A1c.only 6.2 Sliding scale while here and his usual insulin regime restarted on discharge DS: Summary Hospital Course Hospital Course: 78-year-old hypertensive type 2 diabetic with chronic renal failure on home peritoneal dialysis presented with abdominal pain. [place] it might be similar to pain eat had with diverticulitis before. He took antibiotic at home. Peritoneal fluid revealed white count of 6000 with 95% segs. Cultures of blood and fluid were no growth not surprising since he a had had antibiotic at home. He was given the intra-abdominal antibiotics with quick resolution of the symptoms and will continue thi
== END 2019-09-03 14:40 | disposition home or self-care (01) ==
LOC: ANHED 13:52 → ANH3MEDSUR 14:45
PROVIDERS: Internal Medicine Nephrology; Physician Assistant; Admitting Provider Internal Medicine; Emergency Provider General Practice; Visit Provider Internal Medicine
DX: R10.84 Generalized abdominal pain (principal); N18.6 End stage renal disease; Z99.2 Dependence on renal dialysis; D63.1 Anemia in chronic kidney disease; E11.22 Type 2 diabetes mellitus with diabetic chronic kidney disease; E11.51 Type 2 diabetes mellitus with diabetic peripheral angiopathy without gangrene; E11.42 Type 2 diabetes mellitus with diabetic polyneuropathy; E87.8 Other disorders of electrolyte and fluid balance, not elsewhere classified; E03.9 Hypothyroidism, unspecified; I25.10 Atherosclerotic heart disease of native coronary artery without angina pectoris; N32.9 Bladder disorder, unspecified; I12.0 Hypertensive chronic kidney disease with stage 5 chronic kidney disease or end stage renal disease; Z79.4 Long term (current) use of insulin; Z87.891 Personal history of nicotine dependence; Z95.5 Presence of coronary angioplasty implant and graft; Z79.899 Other long term (current) drug therapy; J90 Pleural effusion, not elsewhere classified
CPT/HCPCS: 36415; 74176; 80048; 80053; 80069; 81001; 82728; 83036; 83540; 83550; 83605; 83735; 83880; 84439; 84443; 84480; 85025; 86140; 87040; 87070; 87075; 87205; 88108; 89051; 90945; 96365; 96367; 96375; 96376; 99285; A9270; G0378; J0131; J0696; J0713; J1644; J2270; J2405; J3370

== ENCOUNTER 2019-09-08 13:38 | Outpatient (CLI) | payer MEDICARE, SELFPAY | END 2019-09-08 13:39 | disposition home or self-care (01) | LOC: ANHSURGERY 13:42 | PROVIDERS: Visit Provider Urology | DX: Z01.818 Encounter for other preprocedural examination (principal); D49.4 Neoplasm of unspecified behavior of bladder | CPT/HCPCS: 87086 ==

== ENCOUNTER 2019-09-12 04:22 | Outpatient (CLI) | payer MEDICARE, SELFPAY ==
[2019-09-14 18:54] LABS: SARS-CoV-2 RNA PCR Negative
== END 2019-09-12 04:23 | disposition home or self-care (01) ==
LOC: ANHCOVIDDT 04:23
PROVIDERS: Visit Provider Urology
DX: Z01.812 Encounter for preprocedural laboratory examination (principal); Z11.59 Encounter for screening for other viral diseases
CPT/HCPCS: 87635; C9803; U0003

== ENCOUNTER 2019-09-15 16:42 | Inpatient (IN) | payer MEDICARE, SELFPAY ==
[2019-08-24 13:26] VITALS: BMI 24.8
[2019-09-08 13:55] VITALS: BP 134/64; PULSE 86; RESP 20; TEMP 36.7; O2SAT 98
[2019-09-08 14:06] VITALS: BMI 27.2
[2019-09-15] VITALS (20 sets, daily range): BP systolic 100–146; BP diastolic 51–79; PULSE 67–81; RESP 11–26; TEMP 36–36.9; O2SAT 98–100
--- NOTE | ~2019-09-15 | XR_ITS ---
XR chest 2V 09/16/2019 11:05 Indication: Shortness of breath. Positive PPD test. End-stage renal disease. Procedure: AP and lateral views of the chest Comparison: Comparison to multiple prior studies sequentially, with oldest reviewed study dated 08/2016. Findings: Moderate loculated right pleural effusion with underlying compressive atelectasis. Small le ft pleural effusion. There is curvilinear gas anteriorly in the lower chest on the lateral view which may represent pneumomediastinum/pneumopericardium. Consider correlation with CT chest for further as sessment. There is atherosclerosis of the aorta. Mild thoracic spondylosis. Impression: 1: New curvilinear gas anteriorly in the lower chest on the lateral view which may represent pneumome diastinum/pneumopericardium. Consider correlation with CT chest for further assessment. 2: Bilateral pleural effusions, right greater than left with underlying compressive atelectasis in th e left lung base. Reviewed, dictated and finalized at location A. Impression: 1: New curvilinear gas anteriorly in the lower chest on the lateral view which may represent pneumomediastinum/pneumopericardium. Consider correlation with CT chest for further assessment. 2: Bilateral pleural effusions, right greater than left with underlying km sive atelectasis in the left lung base.
--- NOTE | 2019-09-15 11:48 | WPDHPUPDATE1 ---
History and Physical Update Update Date/Time: 09/15/19 11:48 History and Physical has been reviewed, including an updated exam of the patient. There are NO changes in the patient's condition. Risks, benefits, and alternatives have been discussed and questions answered. Patient agrees to proceed with procedure.
[2019-09-15] MEDS: SODIUM CHLORIDE 0.9% IV 500 ML 30 ML IV CONT (11:55)
[2019-09-15 12:20] LABS: Blood Urea Nitrogen 17 mg/dL (9-20); Carbon Dioxide 37 mmol/L (22-30); Chloride 93 mmol/L (98-107); Estimated CRCL calculation 12 ml/min; Estimated Glomerular Filt Rate 15; Glucose 153 mg/dL (75-110); Sodium 131 mmol/L (137-145)
[2019-09-15 12:21] LABS: Potassium 3.8 mmol/L (3.4-5.0)
[2019-09-15 12:23] LABS: INR 1.2; Prothrombin Time 14.4 Seconds (11.1-14.7)
[2019-09-15 12:24] LABS: Partial Thromboplastin Time 31.6 SECONDS (22.3-36.8)
--- NOTE | 2019-09-15 12:26 | WPDANESEPPF ---
Anes - Initial Pre Proc Eval Procedure: Operation Date: 09/15/19 13:30 Proposed Procedures p Trans Urethral Resection Bladder Tumor - Drew John MD s Cystoscopy, Urethral Dilatation - Drew John MD Date/Time: 09/15/19 12:26 Surgeon: Drew John MD Pre Op Diagnosis: Bladder Tumor, Urethral Stricture,Gross Hematuria Patient Data Age: 78 Gender: M Height: 1.63 m Weight: 65.57 kg Last Vital Signs Temp 36.9 C 09/15/19 11:27 Pulse 81 09/15/19 11:27 Resp 20 09/15/19 11:27 BP 118/66 09/15/19 11:27 Pulse Ox 98 09/15/19 11:27 Allergies Allergy/AdvReac Type Severity Reaction Status Date / Time amoxicillin Allergy Severe HIGH Verified 09/15/19 12:15 FEVER/LETHARGY Penicillins Allergy Severe HIGH Verified 09/15/19 12:15 FEVER/LETHARGY Home Medications Medication Instructions Recorded Confirmed Type B complex-vitamin C-folic acid 0.8 1 tablet PO DAILY 03/24/19 09/15/19 History mg tablet atorvastatin 80 mg tablet 80 mg PO DAILY 03/24/19 09/15/19 History carvedilol 25 mg tablet 25 mg PO Q12H 03/24/19 09/15/19 History clopidogrel 75 mg tablet 75 mg PO DAILY 03/24/19 09/15/19 History fluticasone propionate 50 1 spray NASAL DAILY 03/24/19 09/15/19 History mcg/actuation nasal spray,suspension gabapentin 100 mg capsule 200 mg PO DAILY 03/24/19 09/15/19 History insulin regular human 100 unit/mL 1 sliding scale dose SUB-Q 03/24/19 09/15/19 History injection solution USEASDIRECTD torsemide 100 mg tablet 100 mg PO QAM 03/24/19 09/15/19 History acetaminophen 325 mg capsule 325 mg PO Q6H PRN 05/14/19 09/15/19 History cholecalciferol (vitamin D3) 50 50 mcg PO DAILY 05/14/19 09/15/19 History mcg (2,000 unit) capsule Probiotic 1 cap PO DAILY 08/24/19 09/15/19 History amlodipine 2.5 mg PO DAILY 08/24/19 09/15/19 History aspirin [Aspir-81] 81 mg PO DAILY 08/24/19 09/15/19 History magnesium oxide 400 mg PO DAILY 08/24/19 09/15/19 History potassium chloride 20 meq PO DAILY 08/24/19 09/15/19 History levothyroxine 88 mcg tablet 88 mcg PO DAILY 09/14/19 09/15/19 History Laboratory Tests 09/15/19 09/15/19 11:52 11:52 PT 14.4 Seconds Seconds (11.1-14.7) INR 1.2 APTT 31.6 SECONDS SECONDS (22.3-36.8) Sodium 131 mmol/L L mmol/L (137-145) Potassium 3.8 mmol/L mmol/L (3.4-5.0) Chloride 93 mmol/L L mmol/L (98-107) Carbon Dioxide 37 mmol/L H mmol/L (22-30) BUN 17 mg/dL mg/dL (9-20) Creatinine 3.90 mg/dL H mg/dL (0.7-1.3) Estim Creat Clear Calc 12 ml/min ml/min Estimated GFR 15 L (59 - ) Glucose 153 mg/dL H mg/dL (75-110) Calcium 8.0 mg/dL L mg/dL (8.4-10.2) Patient hx anesthesia problems: none Family hx anesthesia problems: none PMFSH Past Medical History Medical History Anemia of chronic disease Arthritis Back pain Bladder tumor Scheduled for cystoscopy with resection of bladder tumor per Dr. John in summer 2019. Coronary artery disease With history of stent. Diabetic peripheral neuropathy End-stage renal disease on peritoneal dialysis Glaucoma Glaucoma Hearing loss Hyperlipidemia Hypertension Hypothyroidism Insulin dependent type 2 diabetes mellitus Osteomyelitis (~05/2015) Peripheral arterial disease History of right lower extremity stent. Surgical History Surgical History Amputation of fifth toe of right foot (~05/2015) History of heart artery stent (~10/2014) History of vascular surgery Right lower extremity stent. Status post cataract extraction Family History Family History Mother , Age 87 [place] Heart disease Diabetes mellitus Cataract Father , Age 69 from Cancer Heart disease Lung cancer Sibling Diabetes
[2019-09-15] MEDS: levoFLOXacin 500 MG/D5W 100 ML 500 MG/100 ML BAG 100 MG IVPB (13:42)
[2019-09-15] MEDS: LIDOCAINE HCL 2% GEL UROJET 10 ML PKG MUCOUS MEM (14:01)
--- NOTE | 2019-09-15 14:28 | PM.PROC ---
Procedure Note - Detailed Date of procedure: 09/15/19 Pre-op diagnosis: Bladder Tumor, Urethral Stricture,Gross Hematuria Post-op diagnosis: same Procedure performed: Cysto with dilation of urethral stricture with am plants dilators. Transurethral resection of large bladder tumor area greater than 5 cm Description of procedure: Patient is taken to the operative suite and correctly identified. Once general anesthesia was obtained he was placed in the dorsal lithotomy position prepped and draped usual sterile fashion. Twenty [place] scope inserted in the bladder. Is noted that he has a bulbar stricture which would not allow its passage. We thus placed a superstiff guidewire past the stricture. Using amplantz dilators we dilated up to 24 Moz[place]ican. The 24 Mozamb[place] resectoscope sheath was then inserted into the bladder. It was noted that he had some irregularities at the bladder neck bilaterally on the floor. He also had multiple tumor gross along the right lateral wall anterior wall extending to the bladder neck. This was greater than 5 cm area in total. We went ahead and resected all visible tumor. We had to resect part of the bladder neck area in addition. Hemostasis was achieved using electrocautery. The irregularities on the floor the bladder extended close to the ureteral orifices bilaterally. Specimens were sent for analysis. 2% viscous lidocaine was inserted into the urethra. Twenty [place] Prieb was placed and 10 cc in the balloon. This was connected to continuous bladder irrigation and patient is taken recovery room stable condition. If his urine clears a be discharged home with a Weems catheter and have it removed on . If it remains somewhat bloody he will be admitted for continuous bladder irrigation overnight. Anesthesia: GLMA Surgeon: Drew John MD Drains: Yes Packing: No Pathology: yes Complications: No immediate complications Condition: stable Disposition: PACU
[2019-09-15 21:11] LABS: Hepatitis B Surface Antigen Negative (Negative)
--- NOTE | 2019-09-15 21:15 | PC.NURSE ---
Returned from OR per STRETCHER, SPENCE DRAINING CLEAR YELLOW URINE DENIES THE NEED FOR PAIN MEDS, RESTING PER BED. ]
[2019-09-15 21:29] LABS: Hepatitis B Surface Anti Res Negative
--- NOTE | 2019-09-15 22:46 | ECG_ITS ---
Measurements Intervals [place] Rate: 79 P: 3 ID: 165 QRS: 18 QRSD: 96 T: -5 QT: 390 QTc: 449 Interpretive Statements SINUS RHYTHM ATRIAL AND VENTRICULAR PREMATURE COMPLEXES BORDERLINE ST ABNORMALITY- INF/LAT LEADS ABNORMAL ECG Electronically Signed On 09-16-2019 7:10:13 CDT by Clarence Nova D.O.
[2019-09-15] MEDS: ONDANSETRON INJ 4 MG/2 ML VIAL IV PUSH (23:37)
[2019-09-16] VITALS (7 sets, daily range): BP systolic 126–143; BP diastolic 49–65; PULSE 60–88; RESP 16–18; TEMP 36.1–37.1; O2SAT 98–100; BMI 25.9
[2019-09-16 02:36] LABS: Hematocrit 31.2 % (42.0-52.0); Hemoglobin 9.9 g/dL (14.0-18.0); Mean Corpuscular HGB Conc 31.7 g/dl (32-36); Mean Corpuscular Hemoglobin 31.4 pg (26-34); Mean Platelet Volume 9.4 fl (7.4-10.4); Platelet Count Result 410 k/mm3 (150-375); Red Blood Count 3.15 M/mm3 (4.6-6.20); Red Cell Distribution Width 16.5 % (11.5-14.5); White Blood Count 14.2 K/mm3 (4.5-10.0)
[2019-09-16 02:53] LABS: Blood Urea Nitrogen 20 mg/dL (9-20); Calcium 7.7 mg/dL (8.4-10.2); Carbon Dioxide 30 mmol/L (22-30); Chloride 94 mmol/L (98-107); Estimated CRCL calculation 7 ml/min; Estimated Glomerular Filt Rate 16; Glucose 174 mg/dL (75-110); Potassium 3.6 mmol/L (3.4-5.0); Sodium 130 mmol/L (137-145)
--- NOTE | 2019-09-16 03:10 | PM.IMCN ---
Assessment and Plan Assessment and plan (1) History of transurethral destruction of bladder lesion: Code(s): Z98.890 - Other specified postprocedural states Status: Acute Assessment and Plan: The patient is on CBI per primary service. Urine is still pink tinged. (2) Status post cystourethroscopy with dilation of urethral stricture: Code(s): Z98.890 - Other specified postprocedural states Status: Acute (3) End-stage renal disease on peritoneal dialysis: Code(s): N18.6 - End stage renal disease; Z99.2 - Dependence on renal dialysis Status: Acute Assessment and Plan: Nephrology has been consulted for dialysis management. Patient does report some abdominal distension and discomfort. He was recently treated for peritonitis. He does have a mildly elevated white count but this could be due to recent surgery. He is currently on Levaquin postoperatively one time dose. Given his recent hospitalization for peritonitis we may need to consider sending his dialysate fluid for Gram stain and culture. Will defer final decision to Nephrology. (4) Type 2 diabetes mellitus: Code(s): E11.9 - Type 2 diabetes mellitus without complications Status: Acute Assessment and Plan: Glucoses are mildly elevated but still within target range for in-patient hospitalization. Mild sliding scale insulin with Accu-Cheks a.c. HS and hypoglycemia protocol has been ordered. (5) Dyspnea: Code(s): R06.00 - Dyspnea, unspecified Status: Acute Assessment and Plan: Possibly due atelectasis postoperatively. The patient had COVID-19 testing on 09/14/2019 that was negative. Will check a chest x-ray in a.m.. Incentive spirometry has been ordered. HPI Data of Consult Consult date: 09/16/19 Requesting Physician: Drew John MD Primary Care Provider: Eric Xiao Consult Narrative Narrative: Date and time of patient contact: 09/16/2019 at 1:40 a.m. Ángel Fung is a 78 year old male with a past medical history of end-stage renal disease on peritoneal dialysis, type 2 diabetes mellitus and coronary artery disease who presented to the hospital for cystoscopy with urethral dilatation, and trans urethral resection of a large bladder tumor for which we are being consulted for medical management. The patient had multiple tumors along the right anterior lateral wall extending into the bladder neck covering an area larger than 5 cm on 09/15/2019. Yet the tumors resected and specimens were sent for analysis. Postoperatively the patient was receiving continuous bladder irrigation but his urine remained somewhat bloody any was admitted to hospital for continuous irrigation overnight. The patient reported that postoperatively he had a moderate amount of pain in his lower abdomen. This pain is since improved. He does report more sensation of abdominal fullness especially in his upper abdomen. He has concerned about the sensation as is similar to whenever he had peritonitis during his last hospitalization ( through 09/02). Intraperitoneal antibiotics with his dialysate while hospitalized and at discharge. He reports having completed his antibiotic course. This is associated with a sensation of having difficulty catching his breath/shortness of breath. Denies any cough or congestion. He has not been having any fevers or chills. Postoperatively the patient was nauseated. He eventually did drink small cup of apple juice. However shortly after drinking the juice the patient had an episode of emesis. He remains mildly nauseated at this time. He reports that his mouth feels dry and he is extremely thirsty. He does still make urine and denies having any dysuria prior to his procedure. He has not been having any fevers or chills. He reports that his last bowel movement was on the morning of the and was normally formed. He has not been having any chest
[2019-09-16] MEDS: LEVOTHYROXINE SODIUM 88 MCG TABLET PO (05:43)
[2019-09-16] MEDS: ONDANSETRON INJ 4 MG/2 ML VIAL IV PUSH (06:33)
[2019-09-16 06:49] LABS: Glucose Point of Care 187 (65-105)
[2019-09-16 09:18] LABS: Glucose Point of Care 158 (65-105)
--- NOTE | 2019-09-16 09:36 | WPDANESPN ---
Anes - Prog Note Post-Op Date/Time: 09/16/19 09:36 Cardiovascular status: normal Respiratory status: normal Airway patency: baseline Mental status: baseline Post-Op hydration status: normal Vital Signs: Last Vital Signs Temp 36.8 C 09/16/19 06:00 Pulse 83 09/16/19 06:00 Resp 16 09/16/19 06:00 BP 143/49 H 09/16/19 06:00 Pulse Ox 98 09/16/19 06:00 I/O: Intake & Output 09/15/19 09/16/19 09/16/19 23:59 07:59 15:59 Intake Total 0 Output Total 8862 6411 Balance -6550 -4516 Laboratory Tests 09/16/19 02:28 09/16/19 02:28 09/15/19 09/15/19 09/15/19 11:52 11:52 20:02 WBC RBC Hgb Hct MCV MCH MCHC RDW Plt Count MPV PT 14.4 INR 1.2 APTT 31.6 Sodium 131 L Potassium 3.8 Chloride 93 L Carbon Dioxide 37 H BUN 17 Creatinine 3.90 H Estim Creat Clear Calc 12 Estimated GFR 15 L Glucose 153 H POC Capillary Glucose Calcium 8.0 L Hep Bs Antigen Negative Hep Bs Antibody Negative 09/16/19 09/16/19 09/16/19 02:28 02:28 05:10 WBC 14.2 H RBC 3.15 L Hgb 9.9 L Hct 31.2 L MCV 99.0 MCH 31.4 MCHC 31.7 L RDW 16.5 H Plt Count 410 H MPV 9.4 PT INR APTT Sodium 130 L Potassium 3.6 Chloride 94 L Carbon Dioxide 30 BUN 20 Creatinine 3.70 H Estim Creat Clear Calc 7 Estimated GFR 16 L Glucose 174 H POC Capillary Glucose 187 H Calcium 7.7 L Hep Bs Antigen Hep Bs Antibody 09/16/19 08:25 WBC RBC Hgb Hct MCV MCH MCHC RDW Plt Count MPV PT INR APTT Sodium Potassium Chloride Carbon Dioxide BUN Creatinine Estim Creat Clear Calc Estimated GFR Glucose POC Capillary Glucose 158 H Calcium Hep Bs Antigen Hep Bs Antibody Post-procedural complaints: none Patient Feedback: Patient satisfied with anesthetic care.
[2019-09-16] MEDS: FLUTICASONE PROPIONATE 0.05% NA SPR 16 GM BTL (*BKC) 1 SPRAY NASAL (10:51)
[2019-09-16 12:36] LABS: Glucose Point of Care 121 (65-105)
[2019-09-16] MEDS: VITAMIN B CMPLX/VIT C/FOLIC AC 1 CAPSULE 1 CAP PO (15:35)
[2019-09-16] MEDS: MAGNESIUM OXIDE 400 MG TABLET PO (15:35)
[2019-09-16] MEDS: ACIDOPHILUS/BULGARICUS CHEWABLE TABLET 1 TABLET PO (15:36)
[2019-09-16] MEDS: AMLODIPINE BESYLATE 2.5 MG TABLET PO (15:53)
--- NOTE | 2019-09-16 16:16 | PM.IMPN ---
Progress Note: A&P Assessment and Plan (1) History of transurethral destruction of bladder lesion: Code(s): Z98.890 - Other specified postprocedural states Status: Acute Assessment and Plan: The patient is on CBI per primary service. Urine is now clear (2) Status post cystourethroscopy with dilation of urethral stricture: Code(s): Z98.890 - Other specified postprocedural states Status: Acute (3) End-stage renal disease on peritoneal dialysis: Code(s): N18.6 - End stage renal disease; Z99.2 - Dependence on renal dialysis Status: Acute Assessment and Plan: Nephrology has been consulted for dialysis management. Patient does report some abdominal distension and discomfort. He was recently treated for peritonitis. He does have a mildly elevated white count but this could be due to recent surgery. Given his recent hospitalization for peritonitis we may need to consider sending his dialysate fluid for Gram stain and culture. Continue levaquin (4) Type 2 diabetes mellitus: Code(s): E11.9 - Type 2 diabetes mellitus without complications Status: Acute Assessment and Plan: Glucoses are mildly elevated but still within target range for in-patient hospitalization. Mild sliding scale insulin with Accu-Cheks a.c. HS and hypoglycemia protocol has been ordered. (5) Dyspnea: Code(s): R06.00 - Dyspnea, unspecified Status: Acute Assessment and Plan: Possibly due atelectasis postoperatively. The patient had COVID-19 testing on 09/14/2019 that was negative. Will check a chest x-ray in a.m.. Incentive spirometry has been ordered. Subjective Date/time seen: 09/16/19 16:16 Pt seen at bedside doing better herrera is draining clear Pt is tolerating CBI No sob reported Pt being seen by urology Review of Systems Review of Systems: All systems reviewed & are unremarkable except as noted in HPI and below Exam Narrative: Exam Narrative: General: Well-developed well-nourished HEENT: Mucous membranes are dry, Respiratory: Clear to auscultation Cardiovascular: Regular rate, regular rhythm Gastrointestinal: Soft non tender, peritoneal dialysis catheter in the left lower abdomen Extremities: 1-2 +bilateral pedal pulses, no clubbing, no cyanosis Neurological: Alert and oriented, speech is clear, no facial asymmetry Psychiatric: Appropriate mood and affect, pleasant and cooperative Objective Data Vital Signs Vital Signs: Vital Signs - 24 hr 09/15/19 16:30 09/15/19 16:45 09/15/19 17:00 Temperature Pulse Rate 70 69 68 Respiratory Rate 11 L 14 14 Blood Pressure 146/72 H 146/70 H 114/63 Pulse Oximetry 100 100 100 09/15/19 17:15 09/15/19 17:30 09/15/19 17:45 Temperature Pulse Rate 73 69 80 Respiratory Rate 12 13 12 Blood Pressure 114/63 138/60 133/67 Pulse Oximetry 100 100 100 09/15/19 18:00 09/15/19 18:15 09/15/19 18:50 Temperature Pulse Rate 72 72 72 Respiratory Rate 12 12 12 Blood Pressure 119/74 135/56 L Pulse Oximetry 100 100 100 09/15/19 20:29 09/15/19 22:00 09/16/19 02:00 Temperature 36.2 C L 36.0 C L 36.1 C L Pulse Rate 72 74 60 Respiratory Rate 12 16 16 Blood Pressure 136/56 L 109/56 L 126/62 Pulse Oximetry 100 100 09/16/19 06:00 09/16/19 10:29 09/16/19 14:29 Temperature 36.8 C 37.0 C 36.6 C Pulse Rate 83 88 75 Respiratory Rate 16 16 18 Blood Pressure 143/49 H 138/56 L 141/65 H Pulse Oximetry 98 99 100 Intake/Output Intake/Output: Intake & Output 09/13/19 09/14/19 09/15/19 09/16/19 23:59 23:59 23:59 23:59 Intake Total 100 Output Total 9876 4504 Balance -4591 -4838 Meds/Results Medications: Active Medications Generic Name Dose Route Start Last Admin Trade Name Freq PRN Reason Stop Dose Admin Amlodipine Besylate 2.5 mg 09/16/19 09:00 09/16/19 15:53 Norvasc PO 2.5 mg DAILY JOHNATHAN Administration Carvedilol 25 mg 09/16/19 09:00 07
--- NOTE | 2019-09-16 16:22 | WPDUROPN2 ---
Progress Note: A&P Assessment and Plan (1) History of transurethral destruction of bladder lesion: Code(s): Z98.890 - Other specified postprocedural states Status: Acute Assessment and Plan: Patient will stay tonight for pain control. I started IV Tylenol and it is helping. Will reassess tomorrow. Subjective Subjective Date/Time Seen: 09/16/19 16:22 POD #1 TURBT Patient having post operative pain. Urine is clear. Review of Systems Cardiovascular: Cardiovascular: Denies chest pain Respiratory: Respiratory: Reports no additional respiratory complaints Gastrointestinal: Gastrointestinal: Reports abdominal pain, Denies nausea and Denies vomiting Exam Resp: Effort & Inspection: normal respiratory effort Cardio: Rate: regular rate GI: GI Palp: Yes Tenderness to palpation present (GI) Urinary Catheter: Urinary Catheter: patent and draining and urine clear Extrem: General: no edema Objective Data Vital Signs Vital Signs: Vital Signs - 24 hr 09/15/19 16:30 09/15/19 16:45 09/15/19 17:00 Temperature Pulse Rate 70 69 68 Respiratory Rate 11 L 14 14 Blood Pressure 146/72 H 146/70 H 114/63 Pulse Oximetry 100 100 100 09/15/19 17:15 09/15/19 17:30 09/15/19 17:45 Temperature Pulse Rate 73 69 80 Respiratory Rate 12 13 12 Blood Pressure 114/63 138/60 133/67 Pulse Oximetry 100 100 100 09/15/19 18:00 09/15/19 18:15 09/15/19 18:50 Temperature Pulse Rate 72 72 72 Respiratory Rate 12 12 12 Blood Pressure 119/74 135/56 L Pulse Oximetry 100 100 100 09/15/19 20:29 09/15/19 22:00 09/16/19 02:00 Temperature 97.1 F L 96.8 F L 96.9 F L Pulse Rate 72 74 60 Respiratory Rate 12 16 16 Blood Pressure 136/56 L 109/56 L 126/62 Pulse Oximetry 100 100 09/16/19 06:00 09/16/19 10:29 09/16/19 14:29 Temperature 98.3 F 98.6 F 97.8 F Pulse Rate 83 88 75 Respiratory Rate 16 16 18 Blood Pressure 143/49 H 138/56 L 141/65 H Pulse Oximetry 98 99 100 Intake/Output Intake/Output: Intake & Output 0609/14/19 09/15/19 09/16/19 23:59 23:59 23:59 23:59 Intake Total 100 Output Total 9827 1149 Balance -9718 -8650 Meds/Results Medications: Active Medications Generic Name Dose Route Start Last Admin Trade Name Freq PRN Reason Stop Dose Admin Amlodipine Besylate 2.5 mg 09/16/19 09:00 09/16/19 15:53 Norvasc PO 2.5 mg DAILY JOHNATHAN Administration Carvedilol 25 mg 09/16/19 09:00 09/16/19 10:30 Coreg PO Not Given Q12HR JOHNATHAN Dextrose 12.5 gm 09/16/19 03:17 Dextrose 50% Syringe IV PUSH PRN PRN Hypoglycemia Protocol Fluticasone Propionate 1 spray 09/16/19 09:00 09/16/19 10:51 Flonase 0.05% Nasal [place] NASAL 1 spray DAILY JOHNATHAN Administration Gabapentin 200 mg 09/16/19 21:00 Neurontin PO HS JOHNATHAN Glucagon 1 mg 09/16/19 03:17 Glucagon For Inj IM PRN PRN Hypoglycemia Protocol Glucose 15 gm 09/16/19 03:17 Glutose 15 PO PRN PRN Hypoglycemia Protocol Dextrose 1,000 mls @ 100 mls/hr 09/16/19 03:17 Dextrose 5% 1,000 Ml IVPB PRN PRN Hypoglycemia Protocol Acetaminophen 1,000 mg in 100 mls @ 400 mls/hr 09/16/19 13:31 09/16/19 13:48 Ofirmev 1,000 Mg Ivpb IVPB 09/17/19 13:32 400 mls/hr Q6H PRN Administration Pain Rated 4-6 Insulin Aspart 2 - 5 units 09/16/19 08:00 09/16/19 12:15 Novolog SUB-Q Not Given TIDWM JOHNATHAN Protocol Lactobacillus Acidophilus 1 tablet 09/16/19 09:00 09/16/19 15:36 Lactinex Chewable Tablet PO 1 tablet DAILY JOHNATHAN Administration Levothyroxine Sodium 88 mcg 09/16/19 06:30 09/16/19 05:43 Synthroid PO 88 mcg DAILY@0630 JOHNATHAN Administration Magnesium Oxide 400 mg 09/16/19 09:00 09/16/19 15:35 Mag-Ox PO 400 mg DAILY JOHNATHAN Administration Ondansetron HCl 4 mg 09/15/19 23:16 09/16/19 06:33 Zofran Inj IV PUSH 4 mg Q6H PRN Administration Nausea And Vomiting Vitami
[2019-09-16 17:37] LABS: Glucose Point of Care 89 (65-105)
--- NOTE | 2019-09-16 18:14 | PM.CNNEP ---
Assessment and Plan Assessment and plan (1) End stage renal disease: Code(s): N18.6 - End stage renal disease Status: Acute (2) Status post cystourethroscopy with dilation of urethral stricture: Code(s): Z98.890 - Other specified postprocedural states Status: Acute (3) Anemia of chronic disease: Code(s): D63.8 - Anemia in other chronic diseases classified elsewhere Status: Acute (4) Hypertension: Qualifiers: Hypertension type: secondary to endocrine disorders Qualified Code(s): I15.2 - Hypertension secondary to endocrine disorders Code(s): I10 - Essential (primary) hypertension Status: Acute (5) Type 2 diabetes mellitus: Code(s): E11.9 - Type 2 diabetes mellitus without complications Status: Acute Assessment and Plan: . Additional Plan Ángel has end-stage renal disease and is on peritoneal dialysis. He was resumed on his nightly peritoneal dialysis last night and we will continue peritoneal dialysis while he remains hospitalized in effort to maintain stability in his electrolytes, volume status, and clearance. He had some abdominal pain early this morning and I am unclear if this is due to his peritoneal dialysis or his recent surgical procedure but I favor the latter given the recent intervention as well as the fact that his peritoneal dialysis was doing reasonably well prior to his admission. His peritoneal dialysis fluid was slightly blood tinged which is not unexpected given his recent procedure but I will try to send his PD fluid for cell count and Gram stain as he did have a recent bout of peritonitis and make sure this is resolving if not completely treated. Does I believe he was due for 1 more dose of intraperitoneal antibiotics but for simplicity, I will probably give the dose as a 1 time IV to ensure adequate treatment of this previous infection. Urology as well as the hospitalists are following with regard to his recent surgery and ongoing stability with his other chronic medical issues/problems, respectively. I will continue follow patient with you while remains hospitalized and make further recommendations during his hospital course Thank you for allowing me to participate in the care this patient. 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 The patient had multiple tumors along the right anterior lateral wall extending into the bladder neck covering an area larger than 5 cm. He presented to the hospital today for the above procedures to further evaluation. The tumors were resected by Dr. John and specimens were sent for analysis. Postoperatively, the patient was receiving continuous bladder irrigation but his urine remained somewhat bloody any was admitted to hospital for continuous irrigation overnight as well as resumption of his nightly peritoneal dialysis. I should be noted that the patient was recently hospitalized with peritonitis but was successfully treated with intraperitoneal antibiotics. Since surgery, he has been having moderate pain as well as some nausea associated with emesis. However, with supportive therapy/medications, these issues appear to be doing better. Renal consultation was requested due to his history of end-stage renal disease. The patient normally does peritoneal dialysis every night under the care of Dr. jorge alberto Joseph through [facility]. From a peritoneal dialysis perspective he has been doing reasonably well although as already mentioned, he was recently hospitalized earlier last month for
[2019-09-16] MEDS: carvediloL 25 MG TABLET PO (20:08)
[2019-09-16] MEDS: GABAPENTIN 100 MG CAPSULE 200 MG PO (20:08)
[2019-09-17 02:24] LABS: Glucose Point of Care 126 (65-105)
[2019-09-17 06:00] VITALS: BP 130/50; PULSE 85; RESP 18; TEMP 36.9; O2SAT 100
[2019-09-17 06:05] LABS: Hematocrit 24.7 % (42.0-52.0); Hemoglobin 8.1 g/dL (14.0-18.0); Mean Corpuscular HGB Conc 32.8 g/dl (32-36); Mean Corpuscular Volume 97.6 fl (80-100); Mean Platelet Volume 9.4 fl (7.4-10.4); Platelet Count Result 309 k/mm3 (150-375); Red Blood Count 2.53 M/mm3 (4.6-6.20); Red Cell Distribution Width 16.7 % (11.5-14.5); White Blood Count 19.9 K/mm3 (4.5-10.0)
[2019-09-17] MEDS: LEVOTHYROXINE SODIUM 88 MCG TABLET PO (06:17)
[2019-09-17 06:31] LABS: Blood Urea Nitrogen 21 mg/dL (9-20); Calcium 7.4 mg/dL (8.4-10.2); Carbon Dioxide 32 mmol/L (22-30); Chloride 92 mmol/L (98-107); Estimated CRCL calculation 11 ml/min; Estimated Glomerular Filt Rate 14; Glucose 104 mg/dL (75-110); Potassium 2.9 mmol/L (3.4-5.0); Sodium 127 mmol/L (137-145)
[2019-09-17] MEDS: FLUTICASONE PROPIONATE 0.05% NA SPR 16 GM BTL (*BKC) 1 SPRAY NASAL (08:25)
[2019-09-17 08:31] VITALS: PULSE 82
[2019-09-17] MEDS: carvediloL 25 MG TABLET PO (08:31)
[2019-09-17] MEDS: AMLODIPINE BESYLATE 2.5 MG TABLET PO (08:33)
[2019-09-17] MEDS: MAGNESIUM OXIDE 400 MG TABLET PO (08:34)
[2019-09-17 09:32] LABS: Lymphocytes Peritoneal Fluid 18 %; Mesothelial Cells Peritoneal Fluid 4 %; Monocytes Peritoneal Fluid 17 %; Neutrophils Peritoneal Fluid 61 % (0-25)
[2019-09-17 09:33] LABS: Appearance Peritoneal Fluid Clear (Clear); Color Peritoneal Fluid Colorless (Colorless); Nucleated Cells Peritoneal Flu 78 /uL (0-500); RBC Peritoneal Fluid 22 /uL (0-100000); Source Peritoneal Fluid Peritoneal Fluid
[2019-09-17 09:37] LABS: Glucose Point of Care 72 (65-105)
--- NOTE | 2019-09-17 10:18 | PM.PNNEP ---
Progress Note: A&P Assessment and Plan (1) End stage renal disease: Code(s): N18.6 - End stage renal disease Status: Chronic Assessment and Plan: continue nightly peritoneal dialysis follow electrolytes, volume status, and clearance (2) Status post cystourethroscopy with dilation of urethral stricture: Code(s): Z98.890 - Other specified postprocedural states Status: Acute Assessment and Plan: as per Urology continue supportive therapy (3) Anemia of chronic disease: Code(s): D63.8 - Anemia in other chronic diseases classified elsewhere Status: Chronic Assessment and Plan: related to ESRD, recent infection, and possible recent surgical intervention dose with Epogen follow H/H (4) Hypertension: Qualifiers: Hypertension type: secondary to endocrine disorders Qualified Code(s): I15.2 - Hypertension secondary to endocrine disorders Code(s): I10 - Essential (primary) hypertension Status: Chronic Assessment and Plan: reasonable control at this time follow trend of hemodynamics (5) Type 2 diabetes mellitus: Code(s): E11.9 - Type 2 diabetes mellitus without complications Status: Chronic Assessment and Plan: follow accuchecks on SSI Will continue to follow - not opposed to discharge from renal perspective. Subjective Date/time seen: 09/17/19 10:18 Tolerated peritoneal dialysis treatment last night better than yesterday; PD fluid appears more clear but with some fibrin; pain control seems adequate; no apparent distress noted at the time of visit. Exam Narrative: Exam Narrative: General: WD/WN male iin NAD Heart: normal S1 and S2; no rub Lungs: clear to auscultation Abdomen: soft, nontender, nondistended, positive bowel sounds Extremities: no cyanosis or clubbing; no edema Skin: warm and dry Objective Data Vital Signs Vital Signs: Vital Signs Temp Pulse Resp BP Pulse Ox 09/17/19 08:31 82 09/17/19 06:00 36.9 C 85 18 130/50 L 100 09/16/19 22:00 37.1 C 77 18 126/51 L 99 09/16/19 20:08 73 09/16/19 17:59 36.6 C 75 18 141/65 H 09/16/19 14:29 36.6 C 75 18 141/65 H 100 09/16/19 10:29 37.0 C 88 16 138/56 L 99 Intake/Output Intake/Output: Intake & Output 09/14/19 09/15/19 09/16/19 09/17/19 23:59 23:59 23:59 23:59 Intake Total 100 890 400 Output Total 7767 2433 389 Balance -6217 -1023 11 Meds/Results Medications: Active Medications Generic Name Dose Route Start Last Admin Trade Name Freq PRN Reason Stop Dose Admin Amlodipine Besylate 2.5 mg 09/16/19 09:00 09/17/19 08:33 Norvasc PO 2.5 mg DAILY JOHNATHAN Administration Carvedilol 25 mg 09/16/19 09:00 09/17/19 08:31 Coreg PO 25 mg Q12HR JOHNATHAN Administration Dextrose 12.5 gm 09/16/19 03:17 Dextrose 50% Syringe IV PUSH PRN PRN Hypoglycemia Protocol Fluticasone Propionate 1 spray 09/16/19 09:00 09/17/19 08:25 Flonase 0.05% Nasal [place] NASAL 1 spray DAILY JOHNATHAN Administration Gabapentin 200 mg 09/16/19 21:00 09/16/19 20:08 Neurontin PO 200 mg HS JOHNATHAN Administration Glucagon 1 mg 09/16/19 03:17 Glucagon For Inj IM PRN PRN Hypoglycemia Protocol Glucose 15 gm 09/16/19 03:17 Glutose 15 PO PRN PRN Hypoglycemia Protocol Dextrose 1,000 mls @ 100 mls/hr 09/16/19 03:17 Dextrose 5% 1,000 Ml IVPB PRN PRN Hypoglycemia Protocol Acetaminophen 1,000 mg in 100 mls @ 400 mls/hr 09/16/19 13:31 09/17/19 03:53 Ofirmev 1,000 Mg Ivpb IVPB 09/17/19 13:32 Infused Q6H PRN Infusion Pain Rated 4-6 Insulin Aspart 2 - 5 units 09/16/19 08:00 09/17/19 08:34 Novolog SUB-Q Not Given TIDWM JOHNATHAN Protocol Lactobacillus Acidophilus 1 tablet 09/16/19 09:00 09/16/19 15:36 Lactinex Chewable Tablet PO 1 tablet DAILY JOHNATHAN Administration Levothyroxine [place]
[2019-09-17] MEDS: ACIDOPHILUS/BULGARICUS CHEWABLE TABLET 1 TABLET PO (11:43)
[2019-09-17] MEDS: VITAMIN B CMPLX/VIT C/FOLIC AC 1 CAPSULE 1 CAP PO (11:43)
[2019-09-17] MEDS: EPOETIN ALFA 10,000 UNITS/ML VIAL 20000 UNITS SUB-Q (11:44)
--- NOTE | 2019-09-17 12:27 | WPDUROPN2 ---
Progress Note: A&P Assessment and Plan (1) History of transurethral destruction of bladder lesion: Code(s): Z98.890 - Other specified postprocedural states Status: Acute Assessment and Plan: Voiding well without herrera, urine clear. Ok to discharge home today. Subjective Subjective Date/Time Seen: 09/17/19 12:27 POD #2 TURBT Patient's post op pain is controlled with Tylenol. Urine is clear, voiding well after herrera removal. Review of Systems Cardiovascular: Cardiovascular: Denies chest pain Respiratory: Respiratory: Reports no additional respiratory complaints Gastrointestinal: Gastrointestinal: Denies abdominal pain, Denies nausea and Denies vomiting Genitourinary: Genitourinary: Denies hematuria, Denies urinary frequency, Denies urinary hesitancy and Denies urinary urgency Exam Resp: Effort & Inspection: normal respiratory effort Cardio: Rate: regular rate GI: GI Palp: Yes Soft to palpation and No Tenderness to palpation present (GI) Extrem: General: no edema Objective Data Vital Signs Vital Signs: Vital Signs - 24 hr 09/16/19 14:29 09/16/19 17:59 09/16/19 20:08 Temperature 97.8 F 97.8 F Pulse Rate 75 75 73 Respiratory Rate 18 18 Blood Pressure 141/65 H 141/65 H Pulse Oximetry 100 09/16/19 22:00 09/17/19 06:00 09/17/19 08:31 Temperature 98.8 F 98.5 F Pulse Rate 77 85 82 Respiratory Rate 18 18 Blood Pressure 126/51 L 130/50 L Pulse Oximetry 99 100 Intake/Output Intake/Output: Intake & Output 09/14/19 09/15/19 09/16/19 09/17/19 23:59 23:59 23:59 23:59 Intake Total 100 890 640 Output Total 9850 2411 389 Balance -0379 -8472 251 Meds/Results Medications: Active Medications Generic Name Dose Route Start Last Admin Trade Name Freq PRN Reason Stop Dose Admin Amlodipine Besylate 2.5 mg 09/16/19 09:00 09/17/19 08:33 Norvasc PO 2.5 mg DAILY JOHNATHAN Administration Carvedilol 25 mg 09/16/19 09:00 09/17/19 08:31 Coreg PO 25 mg Q12HR JOHNATHAN Administration Dextrose 12.5 gm 09/16/19 03:17 Dextrose 50% Syringe IV PUSH PRN PRN Hypoglycemia Protocol Fluticasone Propionate 1 spray 09/16/19 09:00 09/17/19 08:25 Flonase 0.05% Nasal [place] NASAL 1 spray DAILY JOHNATHAN Administration Gabapentin 200 mg 09/16/19 21:00 09/16/19 20:08 Neurontin PO 200 mg HS JOHNATHAN Administration Glucagon 1 mg 09/16/19 03:17 Glucagon For Inj IM PRN PRN Hypoglycemia Protocol Glucose 15 gm 09/16/19 03:17 Glutose 15 PO PRN PRN Hypoglycemia Protocol Dextrose 1,000 mls @ 100 mls/hr 09/16/19 03:17 Dextrose 5% 1,000 Ml IVPB PRN PRN Hypoglycemia Protocol Acetaminophen 1,000 mg in 100 mls @ 400 mls/hr 09/16/19 13:31 09/17/19 03:53 Ofirmev 1,000 Mg Ivpb IVPB 09/17/19 13:32 Infused Q6H PRN Infusion Pain Rated 4-6 Insulin Aspart 2 - 5 units 09/16/19 08:00 09/17/19 08:34 Novolog SUB-Q Not Given TIDWM JOHNATHAN Protocol Lactobacillus Acidophilus 1 tablet 09/16/19 09:00 09/17/19 11:43 Lactinex Chewable Tablet PO 1 tablet DAILY JOHNATHAN Administration Levothyroxine Sodium 88 mcg 09/16/19 06:30 09/17/19 06:17 Synthroid PO 88 mcg DAILY@0630 JOHNATHAN Administration Magnesium Oxide 400 mg 09/16/19 09:00 09/17/19 08:34 Mag-Ox PO 400 mg DAILY JOHNATHAN Administration Ondansetron HCl 4 mg 09/15/19 23:16 09/16/19 06:33 Zofran Inj IV PUSH 4 mg Q6H PRN Administration Nausea And Vomiting Vitamin B Complex/Folic Acid 1 cap 09/16/19 09:00 09/17/19 11:43 Nephrocaps Softgel PO 1 cap DAILY JOHNATHAN Administration Radiology Results: ITS Impressions Chest X-Ray 09/16/19 11:18 Impression: 1: New curvilinear gas anteriorly in the lower chest on the lateral view which may represent pneumomediastinum/pneumopericardium. Consider correlation with CT chest for further assessment. 2: Bilateral pleural effusions, right greater
[2019-09-17 12:54] LABS: Glucose Point of Care 90 (65-105)
[2019-09-17 14:00] VITALS: BP 103/48; PULSE 67; RESP 18; TEMP 36.2; O2SAT 100
--- NOTE | 2019-09-17 14:15 | DS_ITS ---
DATE OF DISCHARGE: PREOPERATIVE DIAGNOSIS: Bladder tumor, urethral stricture, gross hematuria. POSTOPERATIVE DIAGNOSIS: Bladder tumor, urethral stricture, gross hematuria. The patient underwent cystoscopy with dilation of ureteral stricture with an Amplatz dilators, transurethral resection of large bladder tumor area greater than 5 cm. The patient tolerated procedure well, was transferred to recovery in stable condition to the floor for further observation. The patient continued to have postop pain and bleeding, which has resolved since. Okay to discharge home on current home medications including Tylenol for pain as needed. The patient's activity should be no straining. Okay to shower. The patient's diet should resume as tolerated. We will call for followup based on pathology results. D I MT: Cliff
[2019-09-20 08:30] VITALS: BP 103/48; PULSE 67; RESP 18; TEMP 36.2
== END 2019-09-17 17:40 | disposition home or self-care (01) | DRG 668 ==
LOC: ANH3MEDSUR 18:43
PROVIDERS: Family Medicine; Internal Medicine; Internal Medicine Nephrology; Admitting Provider Urology; Visit Provider Urology
PROC: 0TBB8ZZ Excision of Bladder, Via Natural or Artificial Opening Endoscopic (ICD-10-PCS; principal; 2019-09-15 13:30)
PROC: 0T7D8ZZ Dilation of Urethra, Via Natural or Artificial Opening Endoscopic (ICD-10-PCS; CPT 52281; 2019-09-15 13:30)
DX: C67.9 Malignant neoplasm of bladder, unspecified (principal); N18.6 End stage renal disease; D63.1 Anemia in chronic kidney disease; I15.2 Hypertension secondary to endocrine disorders; E11.22 Type 2 diabetes mellitus with diabetic chronic kidney disease; N35.919 Unspecified urethral stricture, male, unspecified site; R31.0 Gross hematuria; E11.42 Type 2 diabetes mellitus with diabetic polyneuropathy; I25.10 Atherosclerotic heart disease of native coronary artery without angina pectoris; E78.5 Hyperlipidemia, unspecified; E03.9 Hypothyroidism, unspecified; I73.9 Peripheral vascular disease, unspecified; R06.00 Dyspnea, unspecified; Z79.4 Long term (current) use of insulin; Z79.899 Other long term (current) drug therapy; Z87.891 Personal history of nicotine dependence; Z88.0 Allergy status to penicillin; Z88.1 Allergy status to other antibiotic agents; Z98.49 Cataract extraction status, unspecified eye; Z99.2 Dependence on renal dialysis
CPT/HCPCS: 36415; 71046; 80048; 85027; 85610; 85730; 86706; 87070; 87075; 87205; 87340; 88305; 88307; 89051; 90945; 93005; A9270; C1726; C1769; J0131; J1170; J1956; J2405; J2704; J3010; J7040; Q4081

== ENCOUNTER 2019-09-19 11:36 | Inpatient (IN) | payer MEDICARE, SELFPAY ==
--- NOTE | ~2019-09-19 | US_ITS ---
US right upper quadrant INDICATION: Abdomen pain PROCEDURE: Realtime right upper abdominal ultrasound. COMPARISON: CT dated 09/01/2019 FINDINGS: Pancreas is obscured by bowel gas. Liver echotexture is normal without focal mass or intra hepatic biliary dilatation. There is normal directional flow in the portal vein. There are gallstones. No significant gallbladder wall thickening or pericholecystic fluid. Common bi le duct measures 6.7 mm. No sonographic Sahni's sign. IMPRESSION: 1: Cholelithiasis. Reviewed, dictated and finalized at location A. IMPRESSION: 1: Cholelithiasis.
[2019-09-19 11:46] VITALS: BP 131/41; PULSE 78; RESP 20; TEMP 36.9; O2SAT 100
--- NOTE | 2019-09-19 12:20 | ED.GENADULT ---
HPI - General Adult General Chief complaint: Unspecified Stated complaint: difficulty urinating Time Seen by Provider: 09/19/19 12:20 History of Present Illness HPI narrative: Transuretheral bladder surgery done on 09/14. Catheter removed on 09/16. He has not been able to urinate since that time. He has the sensation that he needs to urinate, but nothing comes out. He now has increasing lower abdominal pain and pressure. He is a peritoneal dialysis patient. He does still produce urine. On chart review His WBC count was 19 prior to discharge from the hospital. No fever. Related Data Home Medications Medication Instructions Recorded Confirmed B complex-vitamin C-folic acid 0.8 1 tablet PO DAILY 03/24/19 09/19/19 mg tablet carvedilol 25 mg tablet 25 mg PO BID 03/24/19 09/19/19 clopidogrel 75 mg tablet 75 mg PO DAILY 03/24/19 09/19/19 fluticasone propionate 50 2 spray NASAL DAILY 03/24/19 09/19/19 mcg/actuation nasal spray,suspension gabapentin 100 mg capsule 200 mg PO DAILY 03/24/19 09/19/19 insulin regular human 100 unit/mL 1 sliding scale dose SUB-Q 03/24/19 09/19/19 injection solution USEASDIRECTD torsemide 100 mg tablet 100 mg PO QAM 03/24/19 09/19/19 acetaminophen 325 mg capsule 325 mg PO Q6H PRN 05/14/19 09/19/19 cholecalciferol (vitamin D3) 50 50 mcg PO DAILY 05/14/19 09/19/19 mcg (2,000 unit) capsule Probiotic 1 cap PO DAILY 08/24/19 09/19/19 amlodipine 2.5 mg PO DAILY 08/24/19 09/19/19 aspirin [Aspir-81] 81 mg PO DAILY 08/24/19 09/19/19 magnesium oxide 40 mg PO DAILY 08/24/19 09/19/19 potassium chloride 20 meq PO DAILY 08/24/19 09/19/19 levothyroxine 88 mcg tablet 88 mcg PO DAILY 09/14/19 09/19/19 pravastatin 80 mg PO DAILY 09/19/19 09/19/19 Allergies Allergy/AdvReac Type Severity Reaction Status Date / Time amoxicillin Allergy Severe HIGH Verified 09/19/19 16:09 FEVER/LETHARGY Penicillins Allergy Severe HIGH Verified 09/19/19 16:09 FEVER/LETHARGY Review of Systems Review of Systems: All systems reviewed & are unremarkable except as noted in HPI and below Constitutional: Constitutional: Denies fever(s) Cardiovascular: Cardiovascular: Denies chest pain Respiratory: Respiratory: Denies dyspnea Gastrointestinal: Gastrointestinal: Reports abdominal pain Genitourinary: Genitourinary: Denies hematuria [facility] Past Medical History Medical History Anemia of chronic disease Arthritis Back pain Bladder tumor Resected 09/15/2019 Coronary artery disease With history of stent. Diabetic peripheral neuropathy End-stage renal disease on peritoneal dialysis Managed by Dr. Lauren Glaucoma Hearing loss With bilateral hearing aids Hyperlipidemia Hypertension Hypothyroidism Insulin dependent type 2 diabetes mellitus Osteomyelitis (~05/2015) Peripheral arterial disease History of right lower extremity stent. Urethral stricture Status post dilatation 09/15/2019 Surgical History Surgical History Amputation of fifth toe of right foot (~05/2015) History of heart artery stent (~10/2014) History of transurethral destruction of bladder lesion 09/15/2019 History of vascular surgery Right lower extremity stent. Status post cataract extraction Status post cystourethroscopy with dilation of urethral stricture 09/15/2019 Family History Family History Mother , Age 87 [place] Heart disease Diabetes mellitus Cataract Father , Age 69 from Cancer Heart disease Lung cancer Sibling Diabetes mellitus Social History Social History Social History: The patient is and lives with his in [place]. He smoked up to 2 packs of cigarettes per day for about 17 years and quit in the 1970s. No alcohol or illicit substance use. He norma
--- NOTE | 2019-09-19 12:26 | PC.NURSE ---
attempted to insert herrera cath. cath inserted without resistance but would not drain urine. cath removed with large blood clot on tip
[2019-09-19 12:36] LABS: Basophils Absolute Auto 0.1 K/mm3 (0.0-0.1); Basophils Percent Auto 0.5 % (0.2-1.2); Eosinophils Absolute Auto 0.2 K/mm3 (0-0.3); Hematocrit 28.9 % (42.0-52.0); Hemoglobin 9.3 g/dL (14.0-18.0); Immature Granulocyte Absolute 0.15 K/mm3 (0.00-0.031); Immature Granulocyte Percent A 0.8 % (0-0.5); Lymphocytes Absolute Auto 1.62 K/mm3 (0.9-3.2); Lymphocytes Percent Auto 8.3 % (18.3-44.2); Mean Corpuscular HGB Conc 32.2 g/dl (32-36); Mean Corpuscular Hemoglobin 31.1 pg (26-34); Mean Corpuscular Volume 96.7 fl (80-100); Mean Platelet Volume 9.7 fl (7.4-10.4); Monocytes Absolute Auto 1.7 K/mm3 (0.1-0.6); Monocytes Percent Auto 8.9 % (2.6-8.5); Neutrophils Absolute Auto 15.6 K/mm3 (1.3-6.7); Neutrophils Percent Auto 80.5 % (45.5-73.1); Platelet Count Result 375 k/mm3 (150-375); Red Blood Count 2.99 M/mm3 (4.6-6.20); Red Cell Distribution Width 16.5 % (11.5-14.5); White Blood Count 19.4 K/mm3 (4.5-10.0)
[2019-09-19 12:48] LABS: Alanine Aminotransferase 32 U/L (4-50); Albumin Level 2.4 g/dL (3.5-5.1); Alkaline Phosphatase 146 U/L (38-126); Aspartate Amino Transferase 47 U/L (17-59); Bilirubin,Total 0.2 mg/dL (0.2-1.3); Blood Urea Nitrogen 31 mg/dL (9-20); Calcium 7.2 mg/dL (8.4-10.2); Carbon Dioxide 30 mmol/L (22-30); Chloride 89 mmol/L (98-107); Estimated CRCL calculation 9 ml/min; Estimated Glomerular Filt Rate 11; Glucose 134 mg/dL (75-110); Potassium 3.1 mmol/L (3.4-5.0); Sodium 125 mmol/L (137-145)
[2019-09-19 14:24] VITALS: BP 128/66; PULSE 70; RESP 20; O2SAT 99
[2019-09-19] MEDS: LIDOCAINE HCL 2% GEL UROJET 10 ML PKG (14:26)
[2019-09-19] MEDS: SODIUM CHLORIDE 0.9% IV 1,000 ML 999 ML IV CONT (14:31)
[2019-09-19 14:39] LABS: Add Urine Microscopic? YES; Amorphous Sediment Urine Few; Appearance Urine Cloudy (Clear); Bacteria Urine Trace /hpf; Bilirubin Urine Negative (Negative); Blood Urine 3+ (Negative); Color Urine Yellow (Yellow); Glucose Urine UA Negative (Negative); Ketones Urine Negative (Negative); Leukocyte Esterase Ur 2+ LEU/UL (Negative); Mucus Urine Rare /lpf; Nitrate Urine Negative (Negative); Protein Urine 2+ mg/dL (Negative); RBC Urine >75 /hpf (0-2); Specific Grav Ur 1.012 (1.001-1.035); Squamous Epithelial Cell Urine Rare /hpf (Few); Urobilinogen Urine Negative mg/dL (<2.0); WBC Urine >75 /hpf
[2019-09-19 15:58] VITALS: BMI 25.6
--- NOTE | 2019-09-19 16:09 | ADMGEN ---
This patient, Ángel Fung, was admitted to [facility] Surg Room 313-01. Patient/family oriented to hospital policies and general routines including ID bracelet, bed and alarms, visiting hours, pain management, procedures, bathroom and other care routines, personal items, smoking policy, room service/diet, and visiting hours. Valuables list has been completed. Information on how to activate the Rapid Response Team has been discussed. Patient/Family are encouraged to report perceived risks to care and to ask questions if they do not understand what they are told or what they should do.
[2019-09-19] MEDS: LACTATED RINGERS 1,000 ML 100 ML IV CONT (16:24)
[2019-09-19] MEDS: ACETAMINOPHEN 325 MG TABLET 650 MG PO (17:00)
--- NOTE | 2019-09-19 17:56 | PM.IMHP ---
H&P: HPI History of Present Illness Chief complaint: uti,urinary retention Narrative: Ángel Fung is a 78 year old male who has a history of having bladder tumors. Patient was admitted here on 09/15/2019 had a cysto with dilatation of the urethral stricture with a implants dilators. Transurethral resection of large bladder tumor area greater than 5 cm. The patient did have an elevated white count at that time. The patient tells me that he has been on clindamycin due to an infection to his left foot and just completed as clindamycin. The patient was discharged to home on 09/17/2019 and he stated he had no difficulties at that time. The patient has not been able to urinate for 2 days. The patient has end-stage renal disease and does peritoneal dialysis daily however the patient typically urinates without difficulty until the last 2 days. The patient stated that he became very uncomfortable neck decided to come to the emergency room today. Catheter removed in to 20 and that was the last time he urinated. Patient was having increased lower abdominal pain and some pressure and decided to come to the emergency room. A CBI was started in some clots were flushed through. CBI was not continued as the patient was draining clear yellow urine in his Weems catheter back. Urology has been consulted. Patient was started on lactated Ringer's. Patient also appears to have a urinary tract infection. His WBCs are up to 19.4 19.9 on the 2nd. And on the 14.2. Date of service 09/19/2019 Review of Systems Review of Systems: All systems reviewed & are unremarkable except as noted in HPI and below Constitutional: Constitutional: Reports as per HPI and Reports no additional constitutional complaints Eyes: Eyes: Reports as per HPI and Reports no additional eye complaints ENT: Reports system reviewed and no additional complaints, except as documented and Reports Normal hearing present Cardiovascular: Cardiovascular: Reports no additional cardiovascular complaints Respiratory: Respiratory: Reports no additional respiratory complaints and Reports no additional respiratory complaints Gastrointestinal: Gastrointestinal: Reports as per HPI and Reports no additional gastrointestinal complaints Musculoskeletal: Musculoskeletal: Reports no additional musculoskeletal complaints Integumentary/Breasts: Skin/Breast: Reports system reviewed and no additional complaints, except as docu and Reports as per HPI Neurologic: Reports system reviewed and no additional complaints, except as documented, Reports as per HPI and Reports Normal hearing present Psychiatric: Psychiatric: Reports no additional psychiatric complaints and Reports as per HPI Endocrine: Endocrine: Reports no additional endocrine complaints Hematologic/Lymphatic: Hematologic/Lymphatic: Reports no additional hematologic/lymphatic complaints Allergic/Immunologic: Allergic/Immunologic: Reports no additional allergic/immunologic complaints [facility] Past Medical History Medical History (Updated 09/19/19 @ 18:04 by Karuna Rizvi NP) Anemia of chronic disease Arthritis Back pain Bladder tumor Resected 09/15/2019 Coronary artery disease With history of stent. Diabetic peripheral neuropathy End-stage renal disease on peritoneal dialysis Managed by Dr. Lauren Glaucoma Hearing loss With bilateral hearing aids Hyperlipidemia Hypertension Hypothyroidism Insulin dependent type 2 diabetes mellitus Osteomyelitis (~05/2015) Peripheral arterial disease History of right lower extremity stent. Urethral stricture Status post dilatation 09/15/2019 Surgical History Surgical History (Updated 09/19/19 @ 18:22 by Karuna Rizvi NP) Amputation of fifth toe of right foot (~05/2015) History of heart artery stent (~10/2014) 2 History of surgical removal of skin lesion Top of head and face History of transurethral destruction of bladder lesion 09/15/2019 History of vascular surgery Right l
[2019-09-19 18:23] LABS: Glucose Point of Care 82 (65-105)
[2019-09-19 21:09] VITALS: PULSE 68
[2019-09-19] MEDS: carvediloL 25 MG TABLET PO (21:09)
[2019-09-19] MEDS: PRAVASTATIN SODIUM 20 MG TABLET 80 MG PO (21:09)
[2019-09-19 22:00] VITALS: BP 125/58; PULSE 74; RESP 18; TEMP 36.9; O2SAT 100
[2019-09-20 01:00] LABS: Glucose Point of Care 218 (65-105)
[2019-09-20] MEDS: LEVOTHYROXINE SODIUM 88 MCG TABLET PO (05:53)
[2019-09-20] MEDS: LACTATED RINGERS 1,000 ML 100 ML IV CONT ×2 (05:53→16:16)
[2019-09-20 06:00] VITALS: BP 125/51; PULSE 70; RESP 18; TEMP 37.2; O2SAT 98
[2019-09-20 06:29] LABS: Basophils Absolute Auto 0.1 K/mm3 (0.0-0.1); Basophils Percent Auto 0.6 % (0.2-1.2); Eosinophils Absolute Auto 0.3 K/mm3 (0-0.3); Eosinophils Percent Auto 2.1 % (0-4.4); Hematocrit 24.9 % (42.0-52.0); Hemoglobin 8.1 g/dL (14.0-18.0); Immature Granulocyte Absolute 0.06 K/mm3 (0.00-0.031); Immature Granulocyte Percent A 0.5 % (0-0.5); Lymphocytes Absolute Auto 1.46 K/mm3 (0.9-3.2); Mean Corpuscular HGB Conc 32.5 g/dl (32-36); Mean Corpuscular Hemoglobin 31.8 pg (26-34); Mean Corpuscular Volume 97.6 fl (80-100); Monocytes Absolute Auto 1.3 K/mm3 (0.1-0.6); Monocytes Percent Auto 10.5 % (2.6-8.5); Neutrophils Percent Auto 74.3 % (45.5-73.1); Platelet Count Result 365 k/mm3 (150-375); Red Blood Count 2.55 M/mm3 (4.6-6.20); Red Cell Distribution Width 16.6 % (11.5-14.5); White Blood Count 12.2 K/mm3 (4.5-10.0)
[2019-09-20 06:46] LABS: Alanine Aminotransferase 40 U/L (4-50); Alkaline Phosphatase 116 U/L (38-126); Aspartate Amino Transferase 61 U/L (17-59); Bilirubin,Total < 0.1 mg/dL (0.2-1.3); Blood Urea Nitrogen 24 mg/dL (9-20); Carbon Dioxide 29 mmol/L (22-30); Chloride 92 mmol/L (98-107); Estimated CRCL calculation 11 ml/min; Estimated Glomerular Filt Rate 13; Glucose 192 mg/dL (75-110); Lipase 535 U/L (23-300); Magnesium 1.5 mg/dL (1.6-2.3); Potassium 2.9 mmol/L (3.4-5.0); Sodium 128 mmol/L (137-145)
[2019-09-20 07:06] LABS: CRP 16.7 mg/dL (<1.0)
[2019-09-20 08:40] LABS: Glucose Point of Care 156 (65-105)
[2019-09-20 08:51] VITALS: PULSE 70
[2019-09-20] MEDS: carvediloL 25 MG TABLET PO ×2 (08:51→20:46)
[2019-09-20] MEDS: ACIDOPHILUS/BULGARICUS CHEWABLE TABLET 1 TABLET PO (08:51)
[2019-09-20] MEDS: TORSEMIDE 20 MG TABLET 100 MG PO (08:51)
[2019-09-20] MEDS: AMLODIPINE BESYLATE 2.5 MG TABLET PO (08:51)
[2019-09-20] MEDS: CHOLECALCIFEROL 1,000 UNIT TABLET 2000 UNITS PO (08:51)
[2019-09-20] MEDS: ASPIRIN 81 MG ENTERIC TABLET PO (08:52)
[2019-09-20] MEDS: ACETAMINOPHEN 325 MG TABLET 650 MG PO (08:52)
[2019-09-20] MEDS: FLUTICASONE PROPIONATE 0.05% NA SPR 16 GM BTL (*BKC) 2 SPRAY NASAL (08:52)
[2019-09-20] MEDS: GABAPENTIN 100 MG CAPSULE 200 MG PO (08:52)
[2019-09-20] MEDS: VITAMIN B CMPLX/VIT C/FOLIC AC 1 CAPSULE 1 CAP PO (08:52)
[2019-09-20] MEDS: POTASSIUM CHLORIDE 20 MEQ TABLET.ER PO (08:52)
[2019-09-20] MEDS: MAGNESIUM OXIDE 400 MG TABLET PO (08:52)
[2019-09-20] MEDS: POTASSIUM CHLORIDE 20 MEQ TABLET 40 MEQ PO (10:09)
[2019-09-20 12:42] LABS: Glucose Point of Care 191 (65-105)
[2019-09-20 14:00] VITALS: BP 109/39; PULSE 69; RESP 16; TEMP 36.5; O2SAT 100
--- NOTE | 2019-09-20 14:54 | PM.CNNEP ---
Assessment and Plan Assessment and plan (1) End stage renal disease: Code(s): N18.6 - End stage renal disease Status: Chronic (2) Urinary retention: Code(s): R33.9 - Retention of urine, unspecified Status: Acute (3) Urinary tract infection: Qualifiers: Hematuria presence: with hematuria Urinary tract infection type: site unspecified Qualified Code(s): N39.0 - Urinary tract infection, site not specified; R31.9 - Hematuria, unspecified Code(s): N39.0 - Urinary tract infection, site not specified Status: Acute (4) Hypokalemia: Code(s): E87.6 - Hypokalemia Status: Acute Assessment and Plan: . Additional Plan Ángel has end-stage renal disease and is on peritoneal dialysis. He was resumed on his nightly peritoneal dialysis last night and we will continue peritoneal dialysis while he remains hospitalized in effort to maintain stability in his electrolytes, volume status, and clearance. Due to the concerns of infection, appropriate cultures (blood in urine) have been collected and are still pending at this time. He is currently on IV antibiotics as well. Urology as well as the hospitalists are following with regard to his recent surgery and ongoing stability with his other chronic medical issues/problems, respectively. I will continue follow patient with you while remains hospitalized and make further recommendations during his hospital course Thank you for allowing me to participate in the care this patient. History of Present Illness Reason for Consult Consult date: 09/20/19 Reason for consult: end stage renal disease Chief Complaint Chief complaint: uti,urinary retention History of Present Illness Narrative: The paicuong is a 78 year old male with a past medical history as outlined below who presented to [facility] ER with complaints of urinary retention and possible UTI. It should be noted that the patient was recently hospitalized following a cystoscopy with resection of bladder tumors by Dr. John. He tolerated the procedure reasonably well and was discharge the day after. Unfortunately, since he returned home, the patient has not been able to urinate. Over time, the patient stated that he became very uncomfortable. He has the sensation that he needs to urinate, but nothing comes out. With increasing lower abdominal pain and a pressure sensation, he decided to come to the emergency room for evaluation. Work-up in the ER demonstrate labs consistent with end stable renal disease but he did have a significant WBC. Weems catheter was placed and irrigate with large clot removal; urine noted was turbid but then cleared up. Given these constellation of symptoms and the concern for a possible urinary tract infection, he was admitted to the hospital for further treatment. Renal consultation was requested due to his history of end-stage renal disease. The patient normally does peritoneal dialysis every night under the care of Dr. Cezar Joseph through [facility]. From a peritoneal dialysis perspective, he has been doing reasonably well although as already mentioned, he was recently hospitalized earlier last month for a bout of peritonitis. With ongoing peritoneal dialysis as well as administration of intraperitoneal antibiotics, his peritonitis was resolving by the time of his discharge. He received peritoneal dialysis yesterday evening here after his admission. Currently, he appears to be doing somewhat better at the time of my visit and does not appear to be in any acute distress. Review of Systems Review of Systems: Narrative: As per HPI. [facility] Past Medical History Medical History (Updated 09/19/19 @ 18:04 by Karuna Rizvi NP) Anemia of chronic disease Arthritis Back pain Bladder tumor Resected 09/15/2019 Coronary artery disease With history of stent. Diabetic peripheral neuropathy End-stage renal disease on
[2019-09-20] MEDS: LOPERAMIDE HCL 2 MG CAPSULE PO ×2 (16:42→20:46)
[2019-09-20 17:31] LABS: Glucose Point of Care 126 (65-105)
--- NOTE | 2019-09-20 18:35 | PM.IMPN ---
Progress Note: A&P Assessment and Plan (1) Urinary retention: Code(s): R33.9 - Retention of urine, unspecified Status: Acute Assessment and Plan: A Weems catheter was placed in the ER. CBI was initiated however clots were cleared out and then the urine in the catheter remains clear and is draining without difficulty. Patient had a TURP 09/14. Had a Weems catheter until the 16 September. Continue Weems and Urology to see (2) Urinary tract infection: Qualifiers: Hematuria presence: with hematuria Urinary tract infection type: site unspecified Qualified Code(s): N39.0 - Urinary tract infection, site not specified; R31.9 - Hematuria, unspecified Code(s): N39.0 - Urinary tract infection, site not specified Status: Acute Assessment and Plan: patient on Rocephin. Will wait urine and blood cultures. The patient has leukocytosis is white counts 19.4. And decreased to 12.2 today (3) Cellulitis of left foot: Code(s): L03.116 - Cellulitis of left lower limb Status: Acute Assessment and Plan: Patient completed a round of clindamycin for cellulitis to the left foot. The foot has a small wound at the medial aspect of the M TP approximately 1 cm clean and dry (4) Insulin dependent type 2 diabetes mellitus: Code(s): E11.9 - Type 2 diabetes mellitus without complications; Z79.4 - [facility] (current) use of insulin Status: Acute Assessment and Plan: Accu-Cheks AC and HS. (5) End stage renal disease: Code(s): N18.6 - End stage renal disease Status: Chronic Assessment and Plan: Nephrology to see and manage ease his peritoneal dialysis. (6) BPH (benign prostatic hyperplasia): Qualifiers: Lower urinary tract symptom presence: symptoms absent Qualified Code(s): N40.0 - Benign prostatic hyperplasia without lower urinary tract symptoms Code(s): N40.0 - Benign prostatic hyperplasia without lower urinary tract symptoms Status: Acute Assessment and Plan: Has a Weems catheter in and Urology seeing the patient. (7) Hypothyroidism: Qualifiers: Hypothyroidism type: acquired Qualified Code(s): E03.9 - Hypothyroidism, unspecified Code(s): E03.9 - Hypothyroidism, unspecified Status: Acute Assessment and Plan: Check thyroid levels continue with levothyroxine. (8) Hypertension: Qualifiers: Hypertension type: secondary to endocrine disorders Qualified Code(s): I15.2 - Hypertension secondary to endocrine disorders Code(s): I10 - Essential (primary) hypertension Status: Chronic Assessment and Plan: Continue with torsemide, Coreg, and Norvasc pressure normal 09/19 (9) Hyperlipidemia: Qualifiers: Hyperlipidemia type: mixed hyperlipidemia Qualified Code(s): E78.2 - Mixed hyperlipidemia Code(s): E78.5 - Hyperlipidemia, unspecified Status: Acute Assessment and Plan: Continue with pravastatin Subjective Date/time seen: 09/20/19 18:35 Interval history: Date of visit 09/19. 78-year-old hypertensive type 2 diabetic with chronic peritoneal dialysis admitted with urinary retention status post transurethral resection of the prostate 09/14. Still complaining of suprapubic pain and had leukocytosis so admitted cultured and started on antibiotics. Exam Narrative: Exam Narrative: Blood pressure 110/50 pulse is 70 sat 100% on room air afebrile Pupils equal reactive to light sclera anicteric Lungs clear CV systolic ejection murmur Abdomen soft minimal tenderness suprapubic area peritoneal dialysis catheter in place Weems in place minimal drainage Extremities without edema distal pulses 1+ Neuro alert no focal deficits Objective Data Vital Signs Vital Signs: Vital Signs - 24 hr 09/19/19 21:09 09/19/19 22:00 09/20/19 06:00 Temperature 36.9 C 37.2 C Pulse Rate 68 74 70 Respiratory Rate 18 18 Blood Pressure 125/58 L 125/51
[2019-09-20 20:11] VITALS: BP 109/39; PULSE 69; RESP 16; TEMP 36.5
[2019-09-20] MEDS: PRAVASTATIN SODIUM 20 MG TABLET 80 MG PO (20:45)
[2019-09-20 20:46] VITALS: PULSE 65
[2019-09-20 21:36] LABS: Glucose Point of Care 187 (65-105)
[2019-09-20 22:00] VITALS: BP 151/41; PULSE 65; RESP 18; TEMP 37; O2SAT 100
[2019-09-21] VITALS (8 sets, daily range): BP systolic 114–138; BP diastolic 52–78; PULSE 66–82; RESP 18; TEMP 36.7–36.8; O2SAT 98–100
[2019-09-21] MEDS: ACETAMINOPHEN 325 MG TABLET 650 MG PO ×5 (01:11→23:05)
[2019-09-21] MEDS: LACTATED RINGERS 1,000 ML 100 ML IV CONT ×2 (03:17→13:33)
[2019-09-21] MEDS: LEVOTHYROXINE SODIUM 88 MCG TABLET PO (05:37)
[2019-09-21 06:23] LABS: Basophils Absolute Auto 0.1 K/mm3 (0.0-0.1); Basophils Percent Auto 0.8 % (0.2-1.2); Eosinophils Absolute Auto 0.3 K/mm3 (0-0.3); Eosinophils Percent Auto 3.4 % (0-4.4); Hematocrit 23.6 % (42.0-52.0); Hemoglobin 7.6 g/dL (14.0-18.0); Immature Granulocyte Absolute 0.03 K/mm3 (0.00-0.031); Immature Granulocyte Percent A 0.3 % (0-0.5); Lymphocytes Absolute Auto 1.93 K/mm3 (0.9-3.2); Lymphocytes Percent Auto 21.6 % (18.3-44.2); Mean Corpuscular HGB Conc 32.2 g/dl (32-36); Mean Corpuscular Hemoglobin 31.1 pg (26-34); Mean Corpuscular Volume 96.7 fl (80-100); Mean Platelet Volume 9.3 fl (7.4-10.4); Monocytes Percent Auto 11.3 % (2.6-8.5); Neutrophils Absolute Auto 5.6 K/mm3 (1.3-6.7); Neutrophils Percent Auto 62.6 % (45.5-73.1); Platelet Count Result 351 k/mm3 (150-375); Red Blood Count 2.44 M/mm3 (4.6-6.20); Red Cell Distribution Width 15.9 % (11.5-14.5); White Blood Count 8.9 K/mm3 (4.5-10.0)
[2019-09-21 06:36] LABS: Blood Urea Nitrogen 20 mg/dL (9-20); Calcium 6.9 mg/dL (8.4-10.2); Carbon Dioxide 29 mmol/L (22-30); Chloride 94 mmol/L (98-107); Estimated CRCL calculation 7 ml/min; Estimated Glomerular Filt Rate 16; Glucose 198 mg/dL (75-110); Potassium 3.1 mmol/L (3.4-5.0); Sodium 128 mmol/L (137-145)
[2019-09-21 07:57] LABS: Glucose Point of Care 166 (65-105)
[2019-09-21] MEDS: FLUTICASONE PROPIONATE 0.05% NA SPR 16 GM BTL (*BKC) 2 SPRAY NASAL (09:06)
[2019-09-21] MEDS: GABAPENTIN 100 MG CAPSULE 200 MG PO (09:07)
[2019-09-21] MEDS: POTASSIUM CHLORIDE 20 MEQ TABLET.ER PO (09:07)
[2019-09-21] MEDS: TORSEMIDE 20 MG TABLET 100 MG PO (09:07)
[2019-09-21] MEDS: VITAMIN B CMPLX/VIT C/FOLIC AC 1 CAPSULE 1 CAP PO (09:07)
[2019-09-21] MEDS: MAGNESIUM OXIDE 400 MG TABLET PO (09:07)
[2019-09-21] MEDS: CLOPIDOGREL BISULFATE 75 MG TABLET PO (09:07)
[2019-09-21] MEDS: AMLODIPINE BESYLATE 2.5 MG TABLET PO (09:08)
[2019-09-21] MEDS: ACIDOPHILUS/BULGARICUS CHEWABLE TABLET 1 TABLET PO (09:08)
[2019-09-21] MEDS: CHOLECALCIFEROL 1,000 UNIT TABLET 2000 UNITS PO (09:08)
[2019-09-21] MEDS: carvediloL 25 MG TABLET PO ×2 (09:09→20:14)
[2019-09-21] MEDS: ASPIRIN 81 MG ENTERIC TABLET PO (09:09)
--- NOTE | 2019-09-21 10:48 | WPDURCON ---
Assessment and Plan Assessment and plan (1) Urinary retention: Code(s): R33.9 - Retention of urine, unspecified Status: Acute Assessment and Plan: Likely secondary to benign prostatic hyperplasia. Was recently on finasteride but stopped 8 weeks ago. Will start Flomax. Should go home with Weems catheter. Will arrange for in office voiding trial on Saturday. (2) End stage renal disease: Code(s): N18.6 - End stage renal disease Status: Chronic Assessment and Plan: On peritoneal dialysis (3) Status post cystourethroscopy with dilation of urethral stricture: Code(s): Z98.890 - Other specified postprocedural states Status: Acute (4) History of bladder cancer: Code(s): Z85.51 - Personal history of malignant neoplasm of bladder Status: Acute Assessment and Plan: For high-grade noninvasive bladder cancer. Management per Dr. John. (5) Scrotal edema: Code(s): N50.89 - Other specified disorders of the male genital organs Status: Acute Assessment and Plan: I told him to elevate his scrotum. Urology Consult Note HPI Date Seen: 09/21/19 Requesting Physician: Kvng Arizmendi MD Primary Care Provider: Eric Xiao MD Consult Narrative Narrative: Ángel Fung is a 78 year old male seen with request the hospitalist service. He underwent a cystoscopic transurethral resection of bladder tumor last week. Pathology shows high-grade bladder cancer which appears to be completely resected. He went home postop day 1 able to void. He returned to the emergency room 2 days later with difficulty urinating and some blood in the urine. A Weems catheter was placed with some return of bloody urine which is now clear. The patient states there is only 250 cc in his bladder but yet he was unable to void. Of note he is on peritoneal dialysis and makes decreased urine output. He previously was on finasteride for prostatic enlargement however he stopped it 2 months ago due to breast swelling and tenderness. He is tolerating his Weems canal. The urine is clear. He notes some burning at the urethral meatus. Review of Systems Review of Systems: All systems reviewed & are unremarkable except as noted in HPI and below PMFSH Past Medical History Medical History (Updated 09/21/19 @ 10:51 by Akil Leyva MD) Anemia of chronic disease Arthritis Back pain Bladder tumor Resected 09/15/2019 Coronary artery disease With history of stent. Diabetic peripheral neuropathy End-stage renal disease on peritoneal dialysis Managed by Dr. Lauren Glaucoma Hearing loss With bilateral hearing aids Hyperlipidemia Hypertension Hypothyroidism Insulin dependent type 2 diabetes mellitus Osteomyelitis (~05/2015) Peripheral arterial disease History of right lower extremity stent. Urethral stricture Status post dilatation 09/15/2019 Surgical History Surgical History (Updated 09/19/19 @ 18:22 by Karuna Rizvi NP) Amputation of fifth toe of right foot (~05/2015) History of heart artery stent (~10/2014) 2 History of surgical removal of skin lesion Top of head and face History of transurethral destruction of bladder lesion 09/15/2019 History of vascular surgery Right lower extremity stent. Total of 4 stents in each leg Status post cataract extraction Status post cystourethroscopy with dilation of urethral stricture 09/15/2019 Family History Family History Mother , Age 87 MD Heart disease Diabetes mellitus Cataract Father , Age 69 from Cancer Heart disease Lung cancer Sibling Diabetes mellitus Social History Social History (Updated 09/19/19 @ 18:05 by Karuna Rizvi NP) Social History: The patient is and lives with his in [place]. He smoked up to 2 packs of cigarettes per day for about 17 years and quit in the 1970s
[2019-09-21] MEDS: TAMSULOSIN HCL 0.4 MG CAPSULE PO (12:01)
[2019-09-21 12:07] LABS: Glucose Point of Care 279 (65-105)
[2019-09-21] MEDS: INSULIN ASPART (*BKC) 100 UNITS/ML SUB-Q (12:49)
[2019-09-21 17:00] LABS: Glucose Point of Care 121 (65-105)
--- NOTE | 2019-09-21 17:12 | PM.PNNEP ---
Progress Note: A&P Assessment and Plan (1) End stage renal disease: Code(s): N18.6 - End stage renal disease Status: Chronic Assessment and Plan: On peritoneal dialysis and tolerating it well. (2) Urinary retention: Code(s): R33.9 - Retention of urine, unspecified Status: Acute Assessment and Plan: Urology following. (3) Urinary tract infection: Qualifiers: Hematuria presence: with hematuria Urinary tract infection type: site unspecified Qualified Code(s): N39.0 - Urinary tract infection, site not specified; R31.9 - Hematuria, unspecified Code(s): N39.0 - Urinary tract infection, site not specified Status: Acute Assessment and Plan: White cells however urine is negative. (4) Hypokalemia: Code(s): E87.6 - Hypokalemia Status: Acute Assessment and Plan: . Additional Plan K low yesterday. repeat today Subjective Date/time seen: 09/21/19 17:12 Interval history: Patient is feeling better. Eager for discharge. On peritoneal dialysis and tolerating it well. Fluid is clear and flows were good. Will continue same therapy. Review of Systems Cardiovascular: Cardiovascular: Reports no additional cardiovascular complaints Respiratory: Respiratory: Reports no additional respiratory complaints Gastrointestinal: Gastrointestinal: Reports no additional gastrointestinal complaints Genitourinary: Genitourinary: Reports no additional male genitourinary complaints Exam Narrative: Exam Narrative: WDWN in NAD skin no rash head ncat lungs clear cor reg no rub abd BS+ nontender and soft ext no edema. Objective Data Vital Signs Vital Signs: Vital Signs - 24 hr 09/20/19 20:11 09/20/19 20:46 09/20/19 22:00 Temperature 36.5 C 37.0 C Pulse Rate 69 65 65 Respiratory Rate 16 18 Blood Pressure 109/39 L 151/41 H Pulse Oximetry 100 09/21/19 06:00 09/21/19 07:57 09/21/19 09:09 Temperature 36.8 C 36.8 C Pulse Rate 77 77 76 Respiratory Rate 18 18 Blood Pressure 129/78 129/78 Pulse Oximetry 98 09/21/19 14:00 Temperature 36.7 C Pulse Rate 66 Respiratory Rate 18 Blood Pressure 114/54 L Pulse Oximetry 99 Intake/Output Intake/Output: Intake & Output 07/03/20 09/19/19 09/20/19 09/21/19 23:59 23:59 23:59 23:59 Intake Total 1050 2760 2780 Output Total 575 1188 Balance 1050 2185 1592 Meds/Results Medications: Active Medications Generic Name Dose Route Start Last Admin Trade Name Freq PRN Reason Stop Dose Admin Acetaminophen 650 mg 09/19/19 16:46 09/21/19 12:53 Tylenol Tablet PO 650 mg Q4H PRN Administration Mild Pain (1-3) Amlodipine Besylate 2.5 mg 09/20/19 09:00 09/21/19 09:08 Norvasc PO 2.5 mg DAILY JOHNATHAN Administration Aspirin 81 mg 09/20/19 09:00 09/21/19 09:09 Aspirin Ec PO 81 mg DAILY JOHNATHAN Administration Carvedilol 25 mg 09/19/19 21:00 09/21/19 09:09 Coreg PO 25 mg Q12HR JOHNATHAN Administration Clopidogrel Bisulfate 75 mg 09/21/19 09:00 09/21/19 09:07 Plavix PO 75 mg DAILY JOHNATHAN Administration Dextrose 12.5 gm 09/19/19 17:51 Dextrose 50% Syringe IV PUSH PRN PRN Hypoglycemia Protocol Fluticasone Propionate 2 spray 09/20/19 09:00 09/21/19 09:06 Flonase 0.05% Nasal [place] NASAL 2 spray DAILY JOHNATHAN Administration Gabapentin 200 mg 09/20/19 09:00 09/21/19 09:07 Neurontin PO 200 mg DAILY JOHNATHAN Administration Glucagon 1 mg 09/19/19 17:51 Glucagon For Inj IM PRN PRN Hypoglycemia Protocol Glucose 15 gm 09/19/19 17:51 Glutose 15 PO PRN PRN Hypoglycemia Protocol Lactated Ringer's 1,000 mls @ 100 mls/hr 09/19/19 14:30 09/21/19 13:33 Lr - Lactated Ringers Iv IV CONT 100 mls/hr .Q10H JOHNATHAN Administration Dextrose 1,000 mls @ 100 mls/hr 09/19/19 17:51 Dextrose 5% 1,000 Ml IVPB PRN PRN Hypoglycemia Protocol Ceftriaxone [place]
[2019-09-21] MEDS: PRAVASTATIN SODIUM 20 MG TABLET 80 MG PO (20:14)
--- NOTE | 2019-09-21 22:56 | PM.IMPN ---
Progress Note: A&P Assessment and Plan (1) Urinary retention: Code(s): R33.9 - Retention of urine, unspecified Status: Acute Assessment and Plan: A Weems catheter was placed in the ER. CBI was initiated however clots were cleared out and then the urine in the catheter remains clear and is draining without difficulty. Patient had a TURP 09/14. Had a Weems catheter until the 16 September. Continue Weems and Urology states to leave on d/c and come to office 09/24 for removal and voiding trial (2) Urinary tract infection: Qualifiers: Hematuria presence: with hematuria Urinary tract infection type: site unspecified Qualified Code(s): N39.0 - Urinary tract infection, site not specified; R31.9 - Hematuria, unspecified Code(s): N39.0 - Urinary tract infection, site not specified Status: Acute Assessment and Plan: patient on Rocephin. but cultures all negative so would d/c on discharge. The patient had leukocytosis white counts 19.4. on admission and 8K today (3) Cellulitis of left foot: Code(s): L03.116 - Cellulitis of left lower limb Status: Acute Assessment and Plan: Patient completed a round of clindamycin for cellulitis to the left foot. The foot has a small wound at the medial aspect of the M TP approximately 1 cm clean and dry followed at wound clinic here (4) Insulin dependent type 2 diabetes mellitus: Code(s): E11.9 - Type 2 diabetes mellitus without complications; Z79.4 - [facility] (current) use of insulin Status: Acute Assessment and Plan: Accu-Cheks AC and HS. fbs 118 (5) End stage renal disease: Code(s): N18.6 - End stage renal disease Status: Chronic Assessment and Plan: Nephrology seeing and managing his peritoneal dialysis. (6) BPH (benign prostatic hyperplasia): Qualifiers: Lower urinary tract symptom presence: symptoms absent Qualified Code(s): N40.0 - Benign prostatic hyperplasia without lower urinary tract symptoms Code(s): N40.0 - Benign prostatic hyperplasia without lower urinary tract symptoms Status: Acute Assessment and Plan: Has a Weems catheter in post TURP, and flomax started. (7) Hypothyroidism: Qualifiers: Hypothyroidism type: acquired Qualified Code(s): E03.9 - Hypothyroidism, unspecified Code(s): E03.9 - Hypothyroidism, unspecified Status: Acute Assessment and Plan: TSH normal continue with levothyroxine. (8) Hypertension: Qualifiers: Hypertension type: secondary to endocrine disorders Qualified Code(s): I15.2 - Hypertension secondary to endocrine disorders Code(s): I10 - Essential (primary) hypertension Status: Chronic Assessment and Plan: Continue with torsemide, Coreg, and Norvasc pressure normal 09/20 (9) Hyperlipidemia: Qualifiers: Hyperlipidemia type: mixed hyperlipidemia Qualified Code(s): E78.2 - Mixed hyperlipidemia Code(s): E78.5 - Hyperlipidemia, unspecified Status: Acute Assessment and Plan: Continue with pravastatin (10) Anemia of chronic disease: Code(s): D63.8 - Anemia in other chronic diseases classified elsewhere Status: Chronic Assessment and Plan: recheck cbc am Subjective Date/time seen: 09/21/19 22:56 Interval history: Date of visit 09/20. 78-year-old hypertensive type 2 diabetic with chronic peritoneal dialysis admitted with urinary retention status post transurethral resection of the prostate 09/14. Still complaining of some suprapubic pain but less. no nausea or vomiting. did pertoneal dialysis last night again Exam Narrative: Exam Narrative: Blood pressure 130/78 pulse is 76 sat 100% on room air afebrile Pupils equal reactive to light sclera anicteric Lungs clear CV systolic ejection murmur Abdomen soft nontender, peritoneal dialysis catheter in place Weems in place with clear urine in bag Extremities withou
[2019-09-22 00:31] LABS: Glucose Point of Care 228 (65-105)
[2019-09-22 06:00] VITALS: BP 143/49; PULSE 67; RESP 16; TEMP 36.7; O2SAT 99
[2019-09-22] MEDS: LEVOTHYROXINE SODIUM 88 MCG TABLET PO (06:09)
[2019-09-22] MEDS: ACETAMINOPHEN 325 MG TABLET 650 MG PO (06:10)
[2019-09-22 06:35] LABS: Basophils Absolute Auto 0.1 K/mm3 (0.0-0.1); Basophils Percent Auto 0.9 % (0.2-1.2); Eosinophils Absolute Auto 0.3 K/mm3 (0-0.3); Eosinophils Percent Auto 3.5 % (0-4.4); Hematocrit 27.3 % (42.0-52.0); Hemoglobin 8.6 g/dL (14.0-18.0); Immature Granulocyte Absolute 0.03 K/mm3 (0.00-0.031); Immature Granulocyte Percent A 0.4 % (0-0.5); Lymphocytes Absolute Auto 1.82 K/mm3 (0.9-3.2); Lymphocytes Percent Auto 22.7 % (18.3-44.2); Mean Corpuscular HGB Conc 31.5 g/dl (32-36); Mean Corpuscular Hemoglobin 30.8 pg (26-34); Mean Corpuscular Volume 97.8 fl (80-100); Mean Platelet Volume 9.1 fl (7.4-10.4); Monocytes Absolute Auto 1.1 K/mm3 (0.1-0.6); Monocytes Percent Auto 13.2 % (2.6-8.5); Neutrophils Absolute Auto 4.8 K/mm3 (1.3-6.7); Neutrophils Percent Auto 59.3 % (45.5-73.1); Platelet Count Result 423 k/mm3 (150-375); Red Blood Count 2.79 M/mm3 (4.6-6.20); Red Cell Distribution Width 16.2 % (11.5-14.5)
[2019-09-22 06:46] LABS: Albumin Level 1.9 g/dL (3.5-5.1); Blood Urea Nitrogen 19 mg/dL (9-20); Calcium 7.2 mg/dL (8.4-10.2); Carbon Dioxide 31 mmol/L (22-30); Chloride 92 mmol/L (98-107); Estimated CRCL calculation 14 ml/min; Estimated Glomerular Filt Rate 18; Glucose 183 mg/dL (75-110); Phosphorus 2.4 mg/dL (2.5-4.5); Potassium 3.3 mmol/L (3.4-5.0); Sodium 127 mmol/L (137-145)
[2019-09-22 08:30] LABS: Glucose Point of Care 164 (65-105)
[2019-09-22] MEDS: ONDANSETRON INJ 4 MG/2 ML VIAL IV PUSH (09:32)
--- NOTE | 2019-09-22 09:46 | PM.PNNEP ---
Progress Note: A&P Assessment and Plan (1) End stage renal disease: Code(s): N18.6 - End stage renal disease Status: Chronic Assessment and Plan: On peritoneal dialysis and tolerating it well. (2) Urinary retention: Code(s): R33.9 - Retention of urine, unspecified Status: Acute Assessment and Plan: Urology following. Patient says he is going to see Dr. John on Saturday after discharge. (3) Urinary tract infection: Qualifiers: Hematuria presence: with hematuria Urinary tract infection type: site unspecified Qualified Code(s): N39.0 - Urinary tract infection, site not specified; R31.9 - Hematuria, unspecified Code(s): N39.0 - Urinary tract infection, site not specified Status: Acute Assessment and Plan: White cells however urine culture is negative. (4) Hypokalemia: Code(s): E87.6 - Hypokalemia Status: Acute Assessment and Plan: Check potassium today. Subjective Date/time seen: 09/22/19 09:46 Interval history: Patient is feeling better. On dialysis and tolerating it well. He was seen at 9 35 a.m. He wants to go home. He did have some nausea and vomiting after breakfast today. He feels better now. Review of Systems Cardiovascular: Cardiovascular: Reports no additional cardiovascular complaints Respiratory: Respiratory: Reports no additional respiratory complaints Gastrointestinal: Gastrointestinal: Reports no additional gastrointestinal complaints Genitourinary: Genitourinary: Reports no additional male genitourinary complaints Exam Narrative: Exam Narrative: WDWN in NAD skin no rash head ncat lungs clear to auscultation cor reg no rub or gallop abd BS+ nontender and soft ext no edema. Objective Data Vital Signs Vital Signs: Vital Signs - 24 hr 09/21/19 14:00 09/21/19 18:11 09/21/19 20:11 Temperature 36.7 C 36.7 C Pulse Rate 66 66 82 Respiratory Rate 18 18 Blood Pressure 114/54 L 114/54 L 131/64 Pulse Oximetry 99 100 09/21/19 20:14 09/21/19 22:00 09/22/19 06:00 Temperature 36.7 C 36.7 C Pulse Rate 82 82 67 Respiratory Rate 18 16 Blood Pressure 138/52 L 143/49 H Pulse Oximetry 99 99 Intake/Output Intake/Output: Intake & Output 09/19/19 09/20/19 09/21/19 09/22/19 23:59 23:59 23:59 23:59 Intake Total 1050 2760 3570 1500 Output Total 575 1788 1633 Balance 1050 2185 1782 -133 Meds/Results Medications: Active Medications Generic Name Dose Route Start Last Admin Trade Name Freq PRN Reason Stop Dose Admin Acetaminophen 650 mg 09/19/19 16:46 09/22/19 06:10 Tylenol Tablet PO 650 mg Q4H PRN Administration Mild Pain (1-3) Amlodipine Besylate 2.5 mg 09/20/19 09:00 09/21/19 09:08 Norvasc PO 2.5 mg DAILY JOHNATHAN Administration Aspirin 81 mg 09/20/19 09:00 09/21/19 09:09 Aspirin Ec PO 81 mg DAILY JOHNATHAN Administration Carvedilol 25 mg 09/19/19 21:00 09/21/19 20:14 Coreg PO 25 mg Q12HR JOHNATHAN Administration Clopidogrel Bisulfate 75 mg 09/21/19 09:00 09/21/19 09:07 Plavix PO 75 mg DAILY JOHNATHAN Administration Dextrose 12.5 gm 09/19/19 17:51 Dextrose 50% Syringe IV PUSH PRN PRN Hypoglycemia Protocol Fluticasone Propionate 2 spray 09/20/19 09:00 09/21/19 09:06 Flonase 0.05% Nasal [place] NASAL 2 spray DAILY JOHNATHAN Administration Gabapentin 200 mg 09/20/19 09:00 09/21/19 09:07 Neurontin PO 200 mg DAILY JOHNATHAN Administration Glucagon 1 mg 09/19/19 17:51 Glucagon For Inj IM PRN PRN Hypoglycemia Protocol Glucose 15 gm 09/19/19 17:51 Glutose 15 PO PRN PRN Hypoglycemia Protocol Dextrose 1,000 mls @ 100 mls/hr 09/19/19 17:51 Dextrose 5% 1,000 Ml IVPB PRN PRN Hypoglycemia Protocol Ceftriaxone Sodium/Dextrose 1 gm in 50 mls @ 100 mls/hr 09/19/19 18:00 09/21/19 19:11 Rocephin 1 Gm/D5w 50 Ml IVPB Infused Q24H JOHNATHAN Infus
[2019-09-22 10:40] LABS: Blood Urea Nitrogen 19 mg/dL (9-20); Calcium 7.4 mg/dL (8.4-10.2); Carbon Dioxide 32 mmol/L (22-30); Chloride 91 mmol/L (98-107); Estimated CRCL calculation 13 ml/min; Estimated Glomerular Filt Rate 16; Glucose 176 mg/dL (75-110); Phosphorus 2.5 mg/dL (2.5-4.5); Potassium 3.5 mmol/L (3.4-5.0); Sodium 128 mmol/L (137-145)
[2019-09-22] MEDS: CLOPIDOGREL BISULFATE 75 MG TABLET PO (12:21)
[2019-09-22] MEDS: TORSEMIDE 20 MG TABLET 100 MG PO (12:21)
[2019-09-22] MEDS: ASPIRIN 81 MG ENTERIC TABLET PO (12:21)
[2019-09-22] MEDS: VITAMIN B CMPLX/VIT C/FOLIC AC 1 CAPSULE 1 CAP PO (12:21)
[2019-09-22] MEDS: MAGNESIUM OXIDE 400 MG TABLET PO (12:21)
[2019-09-22] MEDS: AMLODIPINE BESYLATE 2.5 MG TABLET PO (12:21)
[2019-09-22] MEDS: ACIDOPHILUS/BULGARICUS CHEWABLE TABLET 1 TABLET PO (12:21)
[2019-09-22 12:22] VITALS: PULSE 70
[2019-09-22 12:22] LABS: Glucose Point of Care 149 (65-105)
[2019-09-22] MEDS: TAMSULOSIN HCL 0.4 MG CAPSULE PO (12:22)
[2019-09-22] MEDS: CHOLECALCIFEROL 1,000 UNIT TABLET 2000 UNITS PO (12:22)
[2019-09-22] MEDS: carvediloL 25 MG TABLET PO ×2 (12:22→20:13)
[2019-09-22] MEDS: GABAPENTIN 100 MG CAPSULE 200 MG PO (12:22)
[2019-09-22] MEDS: POTASSIUM CHLORIDE 20 MEQ TABLET.ER PO (12:26)
[2019-09-22] MEDS: FLUTICASONE PROPIONATE 0.05% NA SPR 16 GM BTL (*BKC) 2 SPRAY NASAL (12:26)
[2019-09-22 14:00] VITALS: BP 111/54; PULSE 83; RESP 16; TEMP 36.7; O2SAT 97
--- NOTE | 2019-09-22 16:16 | PM.IMPN ---
Progress Note: A&P Assessment and Plan (1) Abdominal pain: Qualifiers: Abdominal location: generalized Qualified Code(s): R10.84 - Generalized abdominal pain Code(s): R10.9 - Unspecified abdominal pain Status: Acute Assessment and Plan: Patient with nausea and vomiting and upper abdominal pain. Lipase was elevated earlier. LFTs also mildly elevated. Will repeat levels. Will check right upper quadrant ultrasound. Will hold on discharge today. Lipase is trending downward. LFTs a worse today. Will hold Pravachol. Ultrasound showing cholelithiasis but no evidence of cholecystitis. Will continue to monitor clinically at this time. (2) Urinary retention: Code(s): R33.9 - Retention of urine, unspecified Status: Acute Assessment and Plan: Patient had a TURP 09/14. Had a Weems catheter until the 16 September. A Weems catheter was placed in the ER. CBI was initiated however clots were cleared out and then the urine in the catheter remains clear and is draining without difficulty. Continue Weems and Urology states to leave on d/c and come to office 09/24 for removal and voiding trial. (3) Urinary tract infection: Qualifiers: Hematuria presence: with hematuria Urinary tract infection type: site unspecified Qualified Code(s): N39.0 - Urinary tract infection, site not specified; R31.9 - Hematuria, unspecified Code(s): N39.0 - Urinary tract infection, site not specified Status: Acute Assessment and Plan: Patient on Rocephin. Urine culture negative. Blood cultures are no growth. Peritoneal fluid from 09/16 also showing no growth. White count up to 20,000 but now normal. Will stop Rocephin (4) Cellulitis of left foot: Code(s): L03.116 - Cellulitis of left lower limb Status: Acute Assessment and Plan: Patient completed a round of clindamycin for cellulitis to the left foot. The foot has a small wound at the medial aspect of the MTP approximately 1 cm clean and dry. Continue current dressing changes. Patient should follow-up at wound clinic here (5) Insulin dependent type 2 diabetes mellitus: Code(s): E11.9 - Type 2 diabetes mellitus without complications; Z79.4 - equipment operator [employer] (current) use of insulin Status: Acute Assessment and Plan: Glucose reviewed on 09/22/2019. Glucose mostly well controlled. Continue Accu-Cheks AC and HS. (6) End stage renal disease: Code(s): N18.6 - End stage renal disease Status: Chronic Assessment and Plan: Nephrology seeing and managing his peritoneal dialysis. (7) BPH (benign prostatic hyperplasia): Qualifiers: Lower urinary tract symptom presence: symptoms absent Qualified Code(s): N40.0 - Benign prostatic hyperplasia without lower urinary tract symptoms Code(s): N40.0 - Benign prostatic hyperplasia without lower urinary tract symptoms Status: Acute Assessment and Plan: Has a Weems catheter in post TURP. Flomax started. Continue flomax. (8) Hypothyroidism: Qualifiers: Hypothyroidism type: acquired Qualified Code(s): E03.9 - Hypothyroidism, unspecified Code(s): E03.9 - Hypothyroidism, unspecified Status: Acute Assessment and Plan: TSH normal continue with levothyroxine. (9) Hypertension: Qualifiers: Hypertension type: secondary to endocrine disorders Qualified Code(s): I15.2 - Hypertension secondary to endocrine disorders Code(s): I10 - Essential (primary) hypertension Status: Chronic Assessment and Plan: On 09/22/2019. Blood pressure well controlled. Continue with torsemide, Coreg, and Norvasc (10) Hyperlipidemia: Qualifiers: Hyperlipidemia type: mixed hyperlipidemia Qualified Code(s): E78.2 - Mixed hyperlipidemia Code(s): E78.5 - Hyperlipidemia, unspecified Status: Acute Assessment and Plan: AST and
[2019-09-22 16:49] LABS: Alanine Aminotransferase 77 U/L (4-50); Albumin Level 1.9 g/dL (3.5-5.1); Alkaline Phosphatase 129 U/L (38-126); Aspartate Amino Transferase 83 U/L (17-59); Bilirubin,Total 0.2 mg/dL (0.2-1.3); Lipase 503 U/L (23-300)
[2019-09-22 17:45] LABS: Glucose Point of Care 148 (65-105)
[2019-09-22 20:11] VITALS: BP 130/59; PULSE 79; O2SAT 99
[2019-09-22 20:13] VITALS: PULSE 79
[2019-09-22 21:22] LABS: Glucose Point of Care 178 (65-105)
[2019-09-22 22:00] VITALS: BP 134/65; PULSE 75; RESP 18; TEMP 36.7; O2SAT 99
[2019-09-23] MEDS: LEVOTHYROXINE SODIUM 88 MCG TABLET PO (05:47)
[2019-09-23 06:00] VITALS: BP 134/46; PULSE 77; RESP 16; TEMP 36.9; O2SAT 100
[2019-09-23 06:18] LABS: Hematocrit 26.6 % (42.0-52.0); Hemoglobin 8.5 g/dL (14.0-18.0); Mean Corpuscular Hemoglobin 31.7 pg (26-34); Mean Corpuscular Volume 99.3 fl (80-100); Mean Platelet Volume 9.3 fl (7.4-10.4); Platelet Count Result 461 k/mm3 (150-375); Red Blood Count 2.68 M/mm3 (4.6-6.20); Red Cell Distribution Width 16.5 % (11.5-14.5)
[2019-09-23 06:37] LABS: Alanine Aminotransferase 64 U/L (4-50); Alkaline Phosphatase 138 U/L (38-126); Aspartate Amino Transferase 63 U/L (17-59); Bilirubin,Total 0.1 mg/dL (0.2-1.3); Blood Urea Nitrogen 19 mg/dL (9-20); Calcium 7.2 mg/dL (8.4-10.2); Carbon Dioxide 30 mmol/L (22-30); Chloride 93 mmol/L (98-107); Estimated CRCL calculation 13 ml/min; Estimated Glomerular Filt Rate 16; Glucose 239 mg/dL (75-110); Potassium 3.5 mmol/L (3.4-5.0); Sodium 128 mmol/L (137-145)
--- NOTE | 2019-09-23 07:53 | WPDUROPN2 ---
Progress Note: A&P Assessment and Plan (1) Scrotal edema: Code(s): N50.89 - Other specified disorders of the male genital organs Status: Acute Assessment and Plan: Related to his generalized peripheral edema. As that improved so will is scrotal edema. Recommend scrotal elevation and some diuresis or continued dialysis. No further intervention from our standpoint at this time. (2) History of bladder cancer: Code(s): Z85.51 - Personal history of malignant neoplasm of bladder Status: Acute Assessment and Plan: Recent transurethral resection was some high-grade disease. Will require an office visit with cystoscopy in 3 months time. (3) Urinary retention: Code(s): R33.9 - Retention of urine, unspecified Status: Acute Assessment and Plan: Unclear as to whether he was truly in retention. Will remove Weems for voiding trial today. Subjective Subjective Date/Time Seen: 09/23/19 07:53 Principal diagnosis: Mild scrotal edema and questionable urinary retention Interval history: Ángel has some mild scrotal edema but also has some peripheral edema which is contributing to his scrotal issue. He also had some question of urinary retention on admission with a volume around 200-240. His urine is currently clear and I think we can try a voiding trial since he is here in the hospital. Review of Systems Review of Systems: All systems reviewed & are unremarkable except as noted in HPI and below Exam Eyes: General: appearance normal, both eyes and all related structures Resp: Effort & Inspection: normal respiratory effort : Other: Mild scrotal edema. Objective Data Vital Signs Vital Signs: Vital Signs - 24 hr 09/22/19 12:22 09/22/19 14:00 09/22/19 20:11 Temperature 36.7 C Pulse Rate 70 83 79 Respiratory Rate 16 Blood Pressure 111/54 L 130/59 L Pulse Oximetry 97 99 09/22/19 20:13 09/22/19 22:00 09/23/19 06:00 Temperature 36.7 C 36.9 C Pulse Rate 79 75 77 Respiratory Rate 18 16 Blood Pressure 134/65 134/46 L Pulse Oximetry 99 100 Intake/Output Intake/Output: Intake & Output 09/20/19 09/21/19 09/22/19 09/23/19 23:59 23:59 23:59 23:59 Intake Total 2760 3570 2500 550 Output Total 575 1788 2183 400 Balance 2185 1782 317 150 Meds/Results Medications: Active Medications Generic Name Dose Route Start Last Admin Trade Name Freq PRN Reason Stop Dose Admin Acetaminophen 650 mg 09/19/19 16:46 09/22/19 06:10 Tylenol Tablet PO 650 mg Q4H PRN Administration Mild Pain (1-3) Amlodipine Besylate 2.5 mg 09/20/19 09:00 09/22/19 12:21 Norvasc PO 2.5 mg DAILY JOHNATHAN Administration Aspirin 81 mg 09/20/19 09:00 09/22/19 12:21 Aspirin Ec PO 81 mg DAILY JOHNATHAN Administration Carvedilol 25 mg 09/19/19 21:00 09/22/19 20:13 Coreg PO 25 mg Q12HR JOHNATHAN Administration Clopidogrel Bisulfate 75 mg 09/21/19 09:00 09/22/19 12:21 Plavix PO 75 mg DAILY JOHNATHAN Administration Dextrose 12.5 gm 09/19/19 17:51 Dextrose 50% Syringe IV PUSH PRN PRN Hypoglycemia Protocol Fluticasone Propionate 2 spray 09/20/19 09:00 09/22/19 12:26 Flonase 0.05% Nasal [place] NASAL 2 spray DAILY JOHNATHAN Administration Gabapentin 200 mg 09/20/19 09:00 09/22/19 12:22 Neurontin PO 200 mg DAILY JOHNATHAN Administration Glucagon 1 mg 09/19/19 17:51 Glucagon For Inj IM PRN PRN Hypoglycemia Protocol Glucose 15 gm 09/19/19 17:51 Glutose 15 PO PRN PRN Hypoglycemia Protocol Dextrose 1,000 mls @ 100 mls/hr 09/19/19 17:51 Dextrose 5% 1,000 Ml IVPB PRN PRN Hypoglycemia Protocol Insulin Aspart 2 - 5 units 09/19/19 17:00 09/22/19 18:33 Novolog SUB-Q Not Given TIDWM JOHNATHAN Protocol Lactobacillus Acidophilus 1 tablet 09/20/19 09:00 09/22/19 12:21 Lactinex Chewable Tablet PO 10/20/19 09:01 1 tablet DAILY JOHNATHAN Administration Levot
[2019-09-23] MEDS: POTASSIUM CHLORIDE 20 MEQ TABLET.ER PO (08:28)
[2019-09-23] MEDS: GABAPENTIN 100 MG CAPSULE 200 MG PO (08:29)
[2019-09-23] MEDS: ACIDOPHILUS/BULGARICUS CHEWABLE TABLET 1 TABLET PO (08:29)
[2019-09-23] MEDS: TORSEMIDE 20 MG TABLET 100 MG PO (08:29)
[2019-09-23] MEDS: carvediloL 25 MG TABLET PO (08:29)
[2019-09-23] MEDS: TAMSULOSIN HCL 0.4 MG CAPSULE PO (08:30)
[2019-09-23] MEDS: VITAMIN B CMPLX/VIT C/FOLIC AC 1 CAPSULE 1 CAP PO (08:30)
[2019-09-23] MEDS: MAGNESIUM OXIDE 400 MG TABLET PO (08:30)
[2019-09-23] MEDS: CLOPIDOGREL BISULFATE 75 MG TABLET PO (08:30)
[2019-09-23] MEDS: AMLODIPINE BESYLATE 2.5 MG TABLET PO (08:30)
[2019-09-23] MEDS: ASPIRIN 81 MG ENTERIC TABLET PO (08:31)
[2019-09-23] MEDS: FLUTICASONE PROPIONATE 0.05% NA SPR 16 GM BTL (*BKC) 2 SPRAY NASAL (08:31)
[2019-09-23] MEDS: CHOLECALCIFEROL 1,000 UNIT TABLET 2000 UNITS PO (08:31)
[2019-09-23] MEDS: INSULIN ASPART (*BKC) 100 UNITS/ML SUB-Q (08:36)
[2019-09-23 09:59] LABS: Glucose Point of Care 290 (65-105)
[2019-09-23 13:06] LABS: Glucose Point of Care 125 (65-105)
[2019-09-23 14:00] VITALS: BP 130/42; PULSE 64; RESP 18; TEMP 36.4; O2SAT 100
--- NOTE | 2019-09-23 16:30 | PM.DS ---
DS: Admitting Diagnosis Admitting Diagnosis Admitting Diagnosis: Retention of urine, unspecified DS: Discharge Diagnosis Discharge Diagnosis (1) Abdominal pain: Qualifiers: Abdominal location: generalized Qualified Code(s): R10.84 - Generalized abdominal pain Code(s): R10.9 - Unspecified abdominal pain Status: Acute Assessment and Plan: Patient with nausea and vomiting and upper abdominal pain. Lipase was elevated earlier but trended down on repeat. LFTs also mildly elevated but better on repeat. Right upper quadrant ultrasound showing cholelithiasis but no evidence of cholecystitis. Symptoms resolved. (2) Urinary retention: Code(s): R33.9 - Retention of urine, unspecified Status: Acute Assessment and Plan: Patient had a TURP 09/14. Had a Weems catheter until the 16 September. A Weems catheter was placed in the ER. CBI was initiated and urine cleared. Weems able to be resumed prior to discharge and patient voiding okay. Follow up with urology. (3) Urinary tract infection: Qualifiers: Hematuria presence: with hematuria Urinary tract infection type: site unspecified Qualified Code(s): N39.0 - Urinary tract infection, site not specified; R31.9 - Hematuria, unspecified Code(s): N39.0 - Urinary tract infection, site not specified Status: Acute Assessment and Plan: UA noted. Patient started on Rocephin. Urine culture negative. Blood cultures are no growth. Peritoneal fluid from 09/16 also showing no growth. White count up to 20,000 but now normal. Rocephin stopped. (4) Cellulitis of left foot: Code(s): L03.116 - Cellulitis of left lower limb Status: Acute Assessment and Plan: Patient completed a round of clindamycin for cellulitis to the left foot. The foot has a small wound at the medial aspect of the MTP approximately 1 cm clean and dry. Continue current dressing changes. 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 (6) End stage renal disease: Code(s): N18.6 - End stage renal disease Status: Chronic Assessment and Plan: Nephrology managed his peritoneal dialysis. (7) BPH (benign prostatic hyperplasia): Qualifiers: Lower urinary tract symptom presence: symptoms absent Qualified Code(s): N40.0 - Benign prostatic hyperplasia without lower urinary tract symptoms Code(s): N40.0 - Benign prostatic hyperplasia without lower urinary tract symptoms Status: Acute Assessment and Plan: Has a Weems catheter in post TURP. Flomax started. Weems removed and patient able to void. (8) Hypothyroidism: Qualifiers: Hypothyroidism type: acquired Qualified Code(s): E03.9 - Hypothyroidism, unspecified Code(s): E03.9 - Hypothyroidism, unspecified Status: Acute Assessment and Plan: TSH normal. We continued with levothyroxine. (9) Hypertension: Qualifiers: Hypertension type: secondary to endocrine disorders Qualified Code(s): I15.2 - Hypertension secondary to endocrine disorders Code(s): I10 - Essential (primary) hypertension Status: Chronic Assessment and Plan: Blood pressure reviewed and remained well controlled. We continued with torsemide, Coreg, and Norvasc (10) Hyperlipidemia: Qualifiers: Hyperlipidemia type: mixed hyperlipidemia Qualified Code(s): E78.2 - Mixed hyperlipidemia Code(s): E78.5 - Hyperlipidemia, unspecified Status: Acute Assessment and Plan: AST and ALT mildly elevated. Levels trended downward. Since not significantly elevated, opted to resume Pravachol.
--- NOTE | 2019-09-23 17:17 | PM.PNNEP ---
Progress Note: A&P Assessment and Plan (1) End stage renal disease: Code(s): N18.6 - End stage renal disease Status: Chronic Assessment and Plan: On peritoneal dialysis and tolerating it well. (2) Urinary retention: Code(s): R33.9 - Retention of urine, unspecified Status: Acute Assessment and Plan: Urology following. Patient says he is going to see Dr. John on Saturday after discharge. (3) Urinary tract infection: Qualifiers: Hematuria presence: with hematuria Urinary tract infection type: site unspecified Qualified Code(s): N39.0 - Urinary tract infection, site not specified; R31.9 - Hematuria, unspecified Code(s): N39.0 - Urinary tract infection, site not specified Status: Acute Assessment and Plan: White cells however urine culture is negative. (4) Hypokalemia: Code(s): E87.6 - Hypokalemia Status: Acute Assessment and Plan: resolved. Subjective Date/time seen: 09/23/19 17:17 Interval history: Patient is feeling better. eager for discharge. eating fine today Review of Systems Cardiovascular: Cardiovascular: Reports no additional cardiovascular complaints Respiratory: Respiratory: Reports no additional respiratory complaints Gastrointestinal: Gastrointestinal: Reports no additional gastrointestinal complaints Genitourinary: Genitourinary: Reports no additional male genitourinary complaints Objective Data Vital Signs Vital Signs: Vital Signs - 24 hr 09/22/19 20:11 09/22/19 20:13 09/22/19 22:00 Temperature 36.7 C Pulse Rate 79 79 75 Respiratory Rate 18 Blood Pressure 130/59 L 134/65 Pulse Oximetry 99 99 09/23/19 06:00 Temperature 36.9 C Pulse Rate 77 Respiratory Rate 16 Blood Pressure 134/46 L Pulse Oximetry 100 Intake/Output Intake/Output: Intake & Output 09/20/19 09/21/19 09/22/19 09/23/19 23:59 23:59 23:59 23:59 Intake Total 2760 3570 2500 1030 Output Total 575 1788 2183 1622 Balance 2185 1782 317 -592 Meds/Results Medications: Active Medications Generic Name Dose Route Start Last Admin Trade Name Freq PRN Reason Stop Dose Admin Acetaminophen 650 mg 09/19/19 16:46 09/22/19 06:10 Tylenol Tablet PO 650 mg Q4H PRN Administration Mild Pain (1-3) Amlodipine Besylate 2.5 mg 09/20/19 09:00 09/23/19 08:30 Norvasc PO 2.5 mg DAILY JOHNATHAN Administration Aspirin 81 mg 09/20/19 09:00 09/23/19 08:31 Aspirin Ec PO 81 mg DAILY JOHNATHAN Administration Carvedilol 25 mg 09/19/19 21:00 09/23/19 08:29 Coreg PO 25 mg Q12HR JOHNATHAN Administration Clopidogrel Bisulfate 75 mg 09/21/19 09:00 09/23/19 08:30 Plavix PO 75 mg DAILY JOHNATHAN Administration Dextrose 12.5 gm 09/19/19 17:51 Dextrose 50% Syringe IV PUSH PRN PRN Hypoglycemia Protocol Fluticasone Propionate 2 spray 09/20/19 09:00 09/23/19 08:31 Flonase 0.05% Nasal [place] NASAL 2 spray DAILY JOHNATHAN Administration Gabapentin 200 mg 09/20/19 09:00 09/23/19 08:29 Neurontin PO 200 mg DAILY JOHNATHAN Administration Glucagon 1 mg 09/19/19 17:51 Glucagon For Inj IM PRN PRN Hypoglycemia Protocol Glucose 15 gm 09/19/19 17:51 Glutose 15 PO PRN PRN Hypoglycemia Protocol Dextrose 1,000 mls @ 100 mls/hr 09/19/19 17:51 Dextrose 5% 1,000 Ml IVPB PRN PRN Hypoglycemia Protocol Insulin Aspart 2 - 5 units 09/19/19 17:00 09/23/19 12:57 Novolog SUB-Q Not Given TIDWM [facility] Protocol Lactobacillus Acidophilus 1 tablet 09/20/19 09:00 09/23/19 08:29 Lactinex Chewable Tablet PO 10/20/19 09:01 1 tablet DAILY JOHNATHAN Administration Levothyroxine Sodium 88 mcg 09/20/19 06:30 09/23/19 05:47 Synthroid PO 88 mcg DAILY@0630 JOHNATHAN Administration Loperamide HCl 2 mg 09/20/19 16:14 09/20/19 20:46 Loperamide Hcl PO 2 mg TID PRN Administration Diarrhea Magnesium Oxide 400
[2019-09-23 17:32] LABS: Glucose Point of Care 182 (65-105)
== END 2019-09-23 18:20 | disposition home or self-care (01) | DRG 689 ==
LOC: ANHED 12:20 → ANH3MEDSUR 15:01
PROVIDERS: Internal Medicine Nephrology; Nurse Practitioner; Admitting Provider Internal Medicine; Emergency Provider Emergency Medicine; PCP Internal Medicine; Visit Provider Internal Medicine
DX: N39.0 Urinary tract infection, site not specified (principal); N18.6 End stage renal disease; L03.116 Cellulitis of left lower limb; I12.0 Hypertensive chronic kidney disease with stage 5 chronic kidney disease or end stage renal disease; E11.9 Type 2 diabetes mellitus without complications; Z79.4 Long term (current) use of insulin; N40.0 Benign prostatic hyperplasia without lower urinary tract symptoms; E11.22 Type 2 diabetes mellitus with diabetic chronic kidney disease; E78.5 Hyperlipidemia, unspecified; E87.6 Hypokalemia; R33.9 Retention of urine, unspecified; I25.10 Atherosclerotic heart disease of native coronary artery without angina pectoris; I73.9 Peripheral vascular disease, unspecified; E11.42 Type 2 diabetes mellitus with diabetic polyneuropathy; D63.8 Anemia in other chronic diseases classified elsewhere; N50.89 Other specified disorders of the male genital organs; Z85.51 Personal history of malignant neoplasm of bladder
CPT/HCPCS: 36415; 76705; 80048; 80053; 80069; 80076; 81001; 83690; 83735; 84443; 85025; 85027; 86140; 87040; 87086; 96361; 96365; 96366; 96375; 99285; A9270; G0257; G0378; J0696; J1815; J2405; J7030; J7120

== ENCOUNTER 2019-10-13 10:03 | Inpatient (IN) | payer MEDICARE, SELFPAY ==
[2019-10-13] VITALS (17 sets, daily range): BP systolic 83–126; BP diastolic 46–83; PULSE 72–124; RESP 17–25; TEMP 36.2–37; O2SAT 96–100; BMI 25.2
--- NOTE | ~2019-10-13 | XR_ITS ---
EXAMINATION: XR chest 1V portable DATE: 10/27/2019 14:51 INDICATION: Right pleural effusion status post thoracentesis. TECHNIQUE: A single frontal view of the chest was obtained. COMPARISON: Chest single view at 5:18 AM FINDINGS: There is a small right pleural effusion. There are airspace opacities in the lower lung zon es. No pneumothorax. The heart size is normal. The endotracheal tube tip is 4.0 cm above the karena. The nasogastric tube tip is beyond the inferior margin of the radiograph, but at least to the stomach . A right internal jugular central venous catheter is seen with tip in the right atrium. A left inter nal jugular central venous catheter is seen with tip in the superior vena cava. IMPRESSION: 1. Small right pleural effusion with improvement status post thoracentesis. 2. Airspace opacities in the lower lung zones with slight improvement, consistent with atelectasis ve rsus pneumonia. Reviewed, dictated and finalized at location B. IMPRESSION: 1. Small right pleural effusion with improvement status post thoracentesis. 2. Airspace opacities in the lower lung zones with slight improvement, consiste nt with atelectasis versus pneumonia.
--- NOTE | ~2019-10-13 | XR_ITS ---
EXAMINATION: XR chest 1V portable INDICATION: Respiratory failure TECHNIQUE: Portable AP chest at 0522 hours COMPARISON: 11/14/2019 FINDINGS: A tracheostomy is noted. There is a left internal jugular central venous catheter ending wi th its tip in the distal superior vena cava. A large bore right internal jugular catheter ends with i ts tip in the right atrium. There is a moderate size right pleural effusion without significant davis e. There are diffuse patchy interstitial and airspace opacities with more focal consolidation is seen in the right lung base. The cardiomediastinal silhouette is stable. There is no pneumothorax. A perc utaneous drain is present in the left upper quadrant. IMPRESSION: 1. Patchy bilateral interstitial and airspace opacities with more focal consolidation in the right messi ng base, consistent with atelectasis versus pneumonia. 2. Moderate size right pleural effusion without significant change. Reviewed, dictated and finalized at location A. IMPRESSION: 1. Patchy bilateral interstitial and airspace opacities with more focal consoli dation in the right lung base, consistent with atelectasis versus pneumonia. 2. Moderate size right pleural effusion without significant change.
--- NOTE | ~2019-10-13 | CT_ITS ---
EXAMINATION: CT brain wo con EXAM DATE: 10/18/2019 10:05 INDICATION: Altered mental status. Unequal pupils. TECHNIQUE: Spiral CT of the head was performed without contrast. Axial, coronal and sagittal images were reviewed. The dose-length product (DLP) for this examination was 605.33 mGy-cm. The exposure w as tailored according to patient size, and iterative reconstruction (ASIR) was used as additional dos e reduction technique. There is no prior study for comparison. FINDINGS: There is no acute intraparenchymal hemorrhage. No evidence of intraparenchymal brain mass lesion. No evidence of acute infarction. Please note that initial head CT has limited sensitivity f or small or acute infarctions. There is mild periventricular and subcortical hypodensity, nonspecific but probably related to small vessel ischemic disease. There is mild prominence of the sulci and v entricles related to cerebral atrophy. There is intracranial carotid arteriosclerosis. There are n o extra-axial collections. There is no mass effect or midline shift. Patient has had bilateral ocul ar lens surgery. Soft tissue is unremarkable. The visualized sinuses and mastoid air cells are well aerated. IMPRESSION: 1. No acute intracranial findings. 2. Chronic age related findings. Reviewed, dictated and finalized at location A.
--- NOTE | ~2019-10-13 | XR_ITS ---
EXAMINATION: XR abdomen/kub 1V DATE: 10/31/2019 05:56 INDICATION: Adynamic ileus. TECHNIQUE: A supine view of the abdomen was obtained. COMPARISON: Abdomen radiographs 10/30/2019 FINDINGS: There are no dilated loops of bowel. The nasogastric tube tip is in the stomach. There is a surgical drain overlying left upper quadrant. There is a surgical drain in the pelvis. Skin mallory are noted. IMPRESSION: 1. Nonobstructive bowel gas pattern. Reviewed, dictated and finalized at location A.
--- NOTE | ~2019-10-13 | XR_ITS ---
EXAMINATION: XR chest 1V portable DATE: 11/01/2019 12:59 INDICATION: Respiratory failure. TECHNIQUE: A single frontal view of the chest was obtained. COMPARISON: Chest single view 10/30/2019 FINDINGS: There is a small right pleural effusion. There are airspace opacities at right lung base. N o pneumothorax. The heart size is normal. There is a tracheostomy tube in expected position. A right internal jugular central venous catheter is seen with tip in the right atrium. A left internal jugula r central venous catheter is seen with tip in the superior vena cava. A surgical drain overlies left upper quadrant. Abdominal skin mallory are noted. IMPRESSION: 1. Stable small right pleural effusion. 2. Stable airspace opacities at right lung base, consistent with atelectasis versus pneumonia. Reviewed, dictated and finalized at location A. IMPRESSION: 1. Stable small right pleural effusion. 2. Stable airspace opacities at right lung base, consistent with atelectasis ve rsus pneumonia.
--- NOTE | ~2019-10-13 | XR_ITS ---
EXAMINATION: XR G tube evaluation w imaging INDICATION: Perforated gastric ulcer TECHNIQUE: Three portable images of the abdomen are obtained, one prior to and two following, the inj ection of 30 cc of water-soluble contrast material through the percutaneous gastrostomy. COMPARISON: 11/09/2019 FINDINGS: Soy[employer] Operator image demonstrates a normal bowel gas pattern with a percutaneous drainage catheter n oted in the left upper quadrant. Midline skin mallory, a pelvic drainage catheter, and a large bore c atheter ending with its tip in the right atrium are also noted. After injection of contrast, there is opacification of the stomach and first portion of the duodenum. In addition, there is an ill-defined collection of contrast which pools to the gastric fundus under the left hemidiaphragm and courses to moran the left upper quadrant drainage catheter. IMPRESSION: 1. Persistent extravasation of contrast through the defect in the gastric fundus with drainage by the left upper quadrant percutaneous drain. Reviewed, dictated and finalized at location A. IMPRESSION: 1. Persistent extravasation of contrast through the defect in the gastric fundu s with drainage by the left upper quadrant percutaneous drain.
--- NOTE | ~2019-10-13 | XR_ITS ---
EXAMINATION: XR chest 1V portable EXAM DATE: 10/15/2019 06:06 INDICATION: Aspiration pneumonia. Acute respiratory failure. TECHNIQUE: Portable AP frontal chest x-ray was obtained. Comparison is made to prior examination from 10/13, 10/13/2019. FINDINGS: Endotracheal tube tip is 2 centimeters above the karena (ideal range is between 2 to 5 cm). There is a nasogastric tube seen with tip collimated off the study, but below the left hemidiaphra gm. Moderate amount of ill-defined right perihilar edema and/or pneumonia. There is moderate right pleur al effusion with adjacent segmental atelectasis. There is no pneumothorax suspected. Cardiac silho uette is stable in size compared to prior exam. There are bony degenerative changes. Accounting f or differences in technique, there is no significant interval change. IMPRESSION: 1. Tubes in position 2. Moderate right pleural effusion, adjacent atelectasis. 3. Perihilar edema and/or pneumonia. Reviewed, dictated and finalized at location A.
--- NOTE | ~2019-10-13 | XR_ITS ---
XR abdomen/kub 1V 12/03/2019 08:04 Indication: Abdominal pain Procedure: AP portable supine view of the abdomen Comparison: Comparison to multiple prior studies sequentially, with oldest reviewed study dated 11/03. Findings: Nonspecific bowel gas pattern. No significant small bowel dilation. There is a gastric tube present. No acute osseous abnormality. There are degenerative changes of the spine and hips. Impression: 1: Nonspecific bowel gas pattern. No definite obstruction. Reviewed, dictated and finalized at location B. Impression: 1: Nonspecific bowel gas pattern. No definite obstruction.
--- NOTE | ~2019-10-13 | XR_ITS ---
EXAMINATION: XR chest 1V portable DATE: 10/26/2019 06:29 INDICATION: Fluid overload TECHNIQUE: frontal view of the chest was obtained. COMPARISON: Chest radiograph dated 10/25/2019 FINDINGS: Endotracheal tube tip 3.1 cm above the karena. Nasogastric tube with distal tip in proximal side port in the body of the stomach. Large-bore dual-lumen right internal jugular central venous catheter wit h distal tip near the superior cavoatrial junction. Smaller caliber left internal jugular central alfredito ous catheter with distal tip in the mid superior vena cava. Unchanged moderate sized right pleural effusion with associated atelectasis and/or pneumonia in the r ight lower lung zone. Increased interstitial pattern in the perihilar region and left lower lung zone suggesting superimposed mild pulmonary edema. No pneumothorax or definitive right pleural effusion. Heart size is normal. IMPRESSION: 1. Unchanged moderate sized right pleural effusion with associated atelectasis and/or pneumonia in th e right lower lung zone. 2. Mild pulmonary edema. Reviewed, dictated and finalized at location A. IMPRESSION: 1. Unchanged moderate sized right pleural effusion with associated atelectasis and/or pneumonia in the right lower lung zone. 2. Mild pulmonary edema.
--- NOTE | ~2019-10-13 | XR_ITS ---
EXAMINATION: XR chest 1V portable EXAM DATE: 10/18/2019 05:43 INDICATION: Aspiration pneumonia. Acute respiratory failure. TECHNIQUE: Portable AP frontal chest x-ray was obtained. Comparison is made to prior chest x-ray and chest CT from 10/17/2019. FINDINGS: Patient is rotated to the right. Endotracheal tube tip is just above the karena, could be s afely retracted 2 cm. Both lungs are being aerated. There is a nasogastric tube tip overlying gastric body, expected position. Moderate amount of ill-defined right perihilar airspace disease most consistent with pneumonia correl ating with CT from yesterday. Small amount of left perihilar airspace disease better visualized today . There is moderate right pleural effusion with adjacent segmental atelectasis. There is no pneumoth orax suspected. Cardiomediastinal silhouette is normal. There are bony degenerative changes. IMPRESSION: 1. Endotracheal tube just above karena, could be safely retracted 2 cm. 2. Moderate right pleural effusion, adjacent atelectasis. 3. Perihilar edema and/or pneumonia. Reviewed, dictated and finalized at location A.
--- NOTE | ~2019-10-13 | XR_ITS ---
EXAMINATION: XR G tube evaluation w imaging DATE: 11/27/2019 11:00 INDICATION: Perforated gastric ulcer TECHNIQUE: AP view of the abdomen was obtained following injection of 30 mL Omnipaque 350 intravenous into the patient's percutaneous gastrostomy tube. Additional 15 and 45 minute delayed images were ob tained. COMPARISON: 11/16/2019 FINDINGS: Percutaneous gastrostomy tube and injected contrast in the body of the stomach which remains relative ly unchanged over the 45 minutes of imaging. No definitive extraluminal extravasation of contrast. Un changed position of a subdiaphragmatic left upper quadrant percutaneous abscess drain which does not opacify with contrast. Normal bowel gas pattern. Small right and tiny left pleural effusions. Opaciti es in the bilateral lower lung zones. Heart size is normal. Large-bore central venous catheter extend ing from the superior vena cava with distal tip in the high right atrium. IMPRESSION: 1. No evident extravasation of the injected gastric contrast to suggest persistent leak. 2. Small right and tiny left pleural effusions with bibasilar opacities which could represent atelect asis and/or pneumonia. Reviewed, dictated and finalized at location A. IMPRESSION: 1. No evident extravasation of the injected gastric contrast to suggest persist ent leak. 2. Small right and tiny left pleural effusions with bibasilar opacities which c ould represent atelectasis and/or pneumonia.
--- NOTE | ~2019-10-13 | CT_ITS ---
EXAMINATION: CT brain wo con DATE: 11/15/2019 11:00 INDICATION: Acutely worsening encephalopathy TECHNIQUE: Computed tomography (CT) of the head was performed without intravenous contrast. Sagittal and coronal reconstructions were performed. The mA was adjusted according to patient size. Iterative reconstruction technique was employed. The dose-length product was 605.33 mGy-cm. COMPARISON: head CT dated 10/18/2019 FINDINGS: No acute intracranial hemorrhage, acute infarction or abnormal extra axial fluid collection. Unchange d mild scattered periventricular, subcortical and pontine white matter hypoattenuation consistent wit h chronic small vessel ischemic disease. Ventricles are normal and symmetric. No mass/mass effect. Mi ld mucosal thickening the bilateral maxillary, ethmoid and right sphenoid sinuses. The orbits and mas toid air cells are normal. Increasing small left mastoid effusion and larger right otomastoiditis eff usion. IMPRESSION: 1. Unchanged mild scattered white matter hypoattenuation consistent with chronic small vessel ischemi c disease. No acute intracranial process. 2. Increasing small left and large right otomastoiditis effusions. Reviewed, dictated and finalized at location A. IMPRESSION: 1. Unchanged mild scattered white matter hypoattenuation consistent with chroni c small vessel ischemic disease. No acute intracranial process. 2. Increasing small left and large right otomastoiditis effusions.
--- NOTE | ~2019-10-13 | XR_ITS ---
EXAMINATION: XR G tube evaluation w imaging DATE: 10/30/2019 12:00 INDICATION: Confirm G-tube positioning. TECHNIQUE: Portable AP supine view of the abdomen was obtained following injection of 30 mL Omnipaque 350 into the patient's existing percutaneous gastrostomy tube. Couple additional delayed supine AP a nd RPO oblique images of the abdomen were obtained. COMPARISON: CT dated 10/17/2019 FINDINGS: Nasogastric tube extends along the stomach with distal tip in proximal side port projecting over the region of the stomach. There is a 9.3 x 4.5 cm loculated collection of contrast surrounding the infla dixon bulb of a left upper quadrant percutaneous gastrostomy tube. The contrast does not appear to cont act or follow the nasogastric tube. Midline surgical clips project over the central abdomen. Catheter projecting over the pelvis could represent a surgical drain. The distal tips of previously seen larg e bore right internal jugular and smaller bore left internal jugular central venous catheters project over the region of the superior cavoatrial junction and mid superior vena cava respectively. Opaciti es in the right mid to lower lung zone consistent with pleural effusion and associated atelectasis an d/or pneumonia. Vascular stent in the proximal right femoral artery. IMPRESSION: 1. Likely extra gastric positioning of the percutaneous gastrostomy tube with injected contrast remai kel within a 9.3 x 4.5 cm loculated collection which does not appear to contact the adjacent nasogas tric tube which follows the expected course of the esophagus and stomach. [facility]35 PM. Reviewed, dictated and finalized at location A. IMPRESSION: 1. Likely extra gastric positioning of the percutaneous gastrostomy tube with i njected contrast remaining within a 9.3 x 4.5 cm loculated collection which mcgregor s not appear to contact the adjacent nasogastric tube which follows the expecte d course of the esophagus and stomach. I discussed this with the patient's nurs e at 12:35 PM.
--- NOTE | ~2019-10-13 | XR_ITS ---
EXAMINATION: XR chest 1V portable INDICATION: Respiratory failure, increased secretions TECHNIQUE: Portable AP chest at 0846 hours COMPARISON: 11/17/2019 FINDINGS: A tracheostomy is unchanged in position. There is a large bore right internal jugular dialy sis catheter ending with its tip in the right atrium. A left internal jugular catheter ends with its tip in the midsuperior vena cava. Moderate-sized right and small left pleural effusions are unchanged . Diffuse patchy interstitial and airspace opacities are minimally improved. Again noted is more foca l opacity of the right lung base which is stable. Percutaneous drainage catheters present in the left upper quadrant beneath the left hemidiaphragm. There is no pneumothorax. The cardiomediastinal silho uette is stable. IMPRESSION: 1. Minimally improved diffuse patchy interstitial and airspace opacities and stable right basilar opa city, consistent with atelectasis versus pneumonia. 2. Moderate size right and small left pleural effusions, stable. Reviewed, dictated and finalized at location A. IMPRESSION: 1. Minimally improved diffuse patchy interstitial and airspace opacities and st able right basilar opacity, consistent with atelectasis versus pneumonia. 2. Moderate size right and small left pleural effusions, stable.
--- NOTE | ~2019-10-13 | XR_ITS ---
EXAMINATION: XR abdomen obstructive series DATE: 10/14/2019 17:27 INDICATION: Follow-up ileus TECHNIQUE: Supine and upright views of the abdomen. FINDINGS: 10/13/2019 The visualized lung parenchyma is normal.. There is a nonobstructive bowel gas pattern. NG tube in th e stomach. There are calcifications in the mid abdomen, compatible with vascular calcifications.. Mod erate lumbar spondylosis. There is a peritoneal dialysis catheter in the pelvis Gas and stool are see n throughout the colon to the level of the rectum. There is no free air. Right pleural effusion with underlying compressive atelectasis. IMPRESSION: 1. No acute abdominal abnormality. Reviewed, dictated and finalized at location A.
--- NOTE | ~2019-10-13 | XR_ITS ---
EXAMINATION: XR chest port-a-cath/central DATE: 10/19/2019 12:29 INDICATION: Central line placement TECHNIQUE: frontal view of the chest was obtained. COMPARISON: Chest radiograph dated 10/19/2019 at 5:37 AM FINDINGS: Endotracheal tube tip 1 cm above the karena. New left internal jugular central venous catheter with d istal tip near the superior cavoatrial junction. Nasogastric tube with proximal side-port in the sto mach and distal tip collimated off the study. Opacities in the right mid to lower lung zone consistent with small to moderate sized right pleural e ffusion and associated atelectasis and/or pneumonia. No pneumothorax or definitive left-sided pleural effusion. Heart size is normal with partially obscured cardiac silhouette. There are bridging osteop hytes at multiple levels in the spine, consistent with diffuse idiopathic skeletal hyperostosis (DISH ). IMPRESSION: 1. Left internal jugular central venous catheter with distal tip near the superior cavoatrial junctio n. 2. No significant change in small to moderate right pleural effusion with atelectasis and/or pneumoni a the right lower lung zone. Reviewed, dictated and finalized at location A. IMPRESSION: 1. Left internal jugular central venous catheter with distal tip near the super ior cavoatrial junction. 2. No significant change in small to moderate right pleural effusion with atele ctasis and/or pneumonia the right lower lung zone.
--- NOTE | ~2019-10-13 | XR_ITS ---
EXAMINATION: XR chest port-a-cath/central DATE: 10/21/2019 16:48 INDICATION: Right internal jugular central venous dialysis catheter placement. TECHNIQUE: frontal view of the chest was obtained. COMPARISON: Chest radiograph dated 10/21/2019 FINDINGS: Interval placement of a large-bore dual-lumen right internal jugular central venous catheter with dis kika tip near the superior cavoatrial junction. Unchanged smaller diameter left internal jugular centr al venous catheter with distal tip in the midsuperior vena cava. Endotracheal tube tip 0.8 cm above t he karena. Nasogastric tube tip and proximal side port in the body of the stomach. Airspace opacity in the right mid to lower lung zone consistent with small to moderate-sized right pl eural effusion with associated basilar atelectasis and/or pneumonia. Increased interstitial pattern i n the perihilar regions and left lower lung zone consistent with mild pulmonary edema with differenti al including pneumonia. No pneumothorax or definitive left pleural effusion. Heart size is normal. IMPRESSION: 1. Large-bore dual-lumen right internal jugular central venous catheter with distal tip near the supe rior cavoatrial junction. No pneumothorax. 2. Persistent small to moderate right pleural effusion with atelectasis and/or pneumonia in the right lower lung zone. 3. Bilateral increased interstitial pattern with peripheral and basilar predominance and favor pulmon lucina edema over pneumonia. Reviewed, dictated and finalized at location A. IMPRESSION: 1. Large-bore dual-lumen right internal jugular central venous catheter with di stal tip near the superior cavoatrial junction. No pneumothorax. 2. Persistent small to moderate right pleural effusion with atelectasis and/or pneumonia in the right lower lung zone. 3. Bilateral increased interstitial pattern with peripheral and basilar predomi nance and favor pulmonary edema over pneumonia.
--- NOTE | ~2019-10-13 | XR_ITS ---
XR chest ET placement, XR chest ET placement 10/13/2019 22:02 Indication: Endotracheal tube placement Procedure: AP portable chest dated 10/13/2019 at 9:20 PM. Second x-ray taken at 10/13/2019 at 9:29 PM. Comparison: Comparison to multiple prior studies sequentially, with oldest reviewed study dated 06/25. Findings: Initial x-ray demonstrates the endotracheal tube just above the karena directed towards the right mainstem bronchus. There is right basilar airspace disease. Moderate right pleural effusion. C ardiomegaly. Left lung clear. No acute osseous abnormality. Subsequent x-ray demonstrates slight retr action of the endotracheal tube, now approximately 2.7 cm above the karena. Impression: 1: Endotracheal tube tip 2.7 cm above the karena. NG tube in the stomach. 2: Right basilar airspace disease, consistent with pneumonia. 3: Moderate right pleural effusion. Reviewed, dictated and finalized at location A. Impression: 1: Endotracheal tube tip 2.7 cm above the karena. NG tube in the stomach. 2: Right basilar airspace disease, consistent with pneumonia. 3: Moderate right pleural effusion. Impression: 1: Endotracheal tube tip 2.7 cm above the karena. NG tube in the stomach. 2: Right basilar airspace disease, consistent with pneumonia. 3: Moderate right pleural effusion.
--- NOTE | ~2019-10-13 | XR_ITS ---
EXAMINATION: XR chest 1V portable INDICATION: Acute respiratory failure TECHNIQUE: Portable AP chest at 0539 hours COMPARISON: 10/20/2019 FINDINGS: The endotracheal tube ends approximately 9 mm above the karena. The nasogastric tube is fol lowed as far as the stomach. Its tip is beyond the inferior margin of the radiograph. A left internal jugular central venous catheter ends with its tip in the distal superior vena cava. A small to moder ate-sized right pleural effusion is stable. Diffuse interstitial and airspace opacities persist witho ut significant change. More focal airspace opacity is seen in the right lung base. There is no pneumo thorax. The cardiac silhouette is obscured. IMPRESSION: 1. Diffuse lung disease with slight worsening airspace opacity in the right lung base, consistent wit h atelectasis versus pneumonia versus pulmonary edema. 2. Small moderate sized left pleural effusion. 3. Endotracheal tube within 1 cm of the karena, consider repositioning to an ideal distance of 2 to 5 cm. Reviewed, dictated and finalized at location A. IMPRESSION: 1. Diffuse lung disease with slight worsening airspace opacity in the right gianni g base, consistent with atelectasis versus pneumonia versus pulmonary edema. 2. Small moderate sized left pleural effusion. 3. Endotracheal tube within 1 cm of the karena, consider repositioning to an id eal distance of 2 to 5 cm.
--- NOTE | ~2019-10-13 | CT_ITS ---
EXAMINATION: CT chest abdomen pelvis w con DATE: 11/06/2019 13:17 INDICATION: Leukocytosis. TECHNIQUE: Computed tomography (CT) of the chest, abdomen, and pelvis was performed with 100 mL Omnip aque 350 intravenous contrast. Automated exposure control and iterative reconstruction technique were employed. The dose-length product was 909.91 mGy-cm. COMPARISON: CT chest, abdomen, and pelvis 10/17/2019 FINDINGS: CHEST CT: The lungs demonstrate widespread tree-in-bud opacities and centrilobular nodules involving right uppe r lobe, right middle lobe, and left lower lobe. There are small areas of subsegmental airspace opacit y in right upper lobe. These findings are consistent with pneumonia. There is mucous in the right john nstem bronchus and bronchus intermedius. There is complete collapse of right middle lobe and right lo wer lobe with varicose bronchiectasis. Calcified bilateral lung nodules and calcified hilar and media stinal lymph nodes are consistent with old granulomatous disease. There are groundglass opacities in left upper lobe and left lower lobe with architectural distortion and associated reticular opacities, likely chronic lung disease. There is mild bronchiectasis in the lingula. There is a moderate-sized right pleural effusion with pleural thickening. There is a small left pleural effusion. The heart siz e is normal. There are coronary artery calcifications. There are calcifications of aortic valve. No p ericardial effusion. There is a tracheostomy tube in expected position. There is mild mediastinal lym phadenopathy, likely reactive. There is bilateral gynecomastia. There is a right internal jugular khushbu tral venous catheter with tip in right atrium. There is thrombus in the right internal jugular vein a butting the catheter where it enter the vein. There is a left internal jugular central venous cathete r with tip in superior vena cava. Body wall edema is noted. There is severe cervical spondylosis and moderate thoracic spondylosis. ABDOMEN/PELVIS CT: The liver is trace periportal edema. The gallbladder is normal in size and contains gallstones. Gallb ladder wall thickening is likely secondary to interstitial edema. There is a perforation of the poste rior wall of the fundus of the stomach with 2.5 cm gap in the enhancing mucosa with low-attenuation i nfarct of the adjacent spleen and contiguous with a 9.8 x 7.4 cm rim-enhancing peritoneal fluid colle ction with foci of gas. There is a gastrostomy tube in expected position. There is a 4 mm cystic lesi on in the body of pancreas, likely not clinically significant. The adrenal glands are normal. There i s cortical thinning of the kidneys. The prostate is moderately enlarged. A rectal tube is noted. Ther e is liquid stool in the colon suggesting diarrhea. The appendix is not visualized. There is a rim-en hancing peritoneal fluid collection superior to the bladder measuring 12.2 x 3.1 cm with a surgical d rain in expected position. This collection continues superiorly on the left side of the abdomen and d emonstrates a very thin communication to the perisplenic collection. Body wall edema is noted. There is calcified atherosclerosis of the aorta and many of the other arteries. There are no pathologically enlarged lymph nodes. There is severe lumbar spondylosis. IMPRESSION: 1. New perforation of the posterior fundus of the stomach with adjacent splenic infarct and contiguou s with a perisplenic rim-enhancing fluid collection with foci of gas, consistent with abscess. 2. 12.2 x 3.1 cm rim-enhancing fluid collection superior to the bladder with surgical drain in expect ed position. 3. Multifocal pneumonia. 4. Moderate-sized right pleural effusion with pleural thickening. Small left pleural effusion. 5. Thrombus in right internal jugular vein abutting the catheter. Reviewed, dictated and finalized at loc
--- NOTE | ~2019-10-13 | XR_ITS ---
EXAMINATION: XR chest ET placement EXAM DATE: 10/29/2019 14:52 INDICATION: Endotracheal tube placement. TECHNIQUE: Portable AP frontal chest x-ray was obtained. Comparison is made to prior examination from earlier same date. FINDINGS: Endotracheal tube tip is 1-2 centimeters above the karena. There is a right-sided double-l umen dialysis catheter. There is a left IJ venous line. There is a nasogastric tube seen with tip col limated off the study, but below the left hemidiaphragm. There is moderate right pleural effusion with adjacent atelectasis. Some diffuse ill-defined airspace disease could be edema or pneumonia. There is no pneumothorax suspected. The cardiomediastinal si lhouette is prominent but magnified on this AP technique. The bones and soft tissues are unremarkab le. There is no significant interval change compared to prior exam. IMPRESSION: 1. Endotracheal tube above 1 to 2 cm above karena. 2. Moderate right pleural effusion, adjacent atelectasis. 3. Ill-defined bilateral edema or pneumonia. Reviewed, dictated and finalized at location A.
--- NOTE | ~2019-10-13 | XR_ITS ---
EXAMINATION: XR fl Dobhoff insert/rad w img DATE: 12/03/2019 15:09 INDICATION: Gastric perforation and not following tube feeds from percutaneous gastrostomy tube. TECHNIQUE: A Dobbhoff type feeding tube was advanced into the duodenum utilizing intermittent fluoroscopy. A sma ll amount of dilute water-soluble oral contrast material was injected both through the patient's perc utaneous gastrostomy tube to delineate the course of the stomach and location of the previously noted gastric perforation and subsequently through the Dobbhoff tube to confirm positioning within the duo denum. Final image demonstrates the feeding tube in position with the weighted tip at the expected lo cation of the ligament of Treitz. The tube was flushed with 10 mL sterile saline and fixed to the esperanza es with adhesive tape. A total of 4 fluoroscopic spot images and 2 overhead radiographs were recorded . The amount of fluoroscopy time used during this procedure was 1.5 minutes. There were no immediate competitions. FINDINGS: The feeding tube was able to be advanced successfully into the duodenum with the distal tip at the li gament of Treitz which was confirmed with injection of contrast through the tube. Contrast injected t hrough the percutaneous gastrostomy tube remain at the gastric fundus. Thin curvilinear extension of a narrow tract of extraluminal contrast along the caudal margin of the medial side of the left hemidi aphragm. No contrast was seen in the more laterally to be a percutaneous gastrostomy tube. No larger loculated collection of extraluminal contrast identified. Opacities in the right mid to lower lung zo ne consistent with moderate sized right pleural effusion and associated right basilar atelectasis and /or pneumonia. There are a pair of incompletely visualized central venous catheters including a large r lumen catheter extending caudally from the right brachiocephalic vein with distal tip in the high r ight atrium and a second smaller lumen catheter extending to the caudal superior vena cava from the l eft brachiocephalic vein. IMPRESSION: 1. Successful fluoroscopy-guided Dobbhoff feeding tube placement with distal tip in the fourth portio n of the duodenum. 2. Persistent perforation at the gastric fundus with extraluminal extension of a small amount of inje cted contrast which remains localized in the region of the perforation. Reviewed, dictated and finalized at location A. IMPRESSION: 1. Successful fluoroscopy-guided Dobbhoff feeding tube placement with distal ti p in the fourth portion of the duodenum. 2. Persistent perforation at the gastric fundus with extraluminal extension of a small amount of injected contrast which remains localized in the region of th e perforation.
--- NOTE | ~2019-10-13 | XR_ITS ---
XR chest 1V portable DATE: 10/23/2019 06:29 INDICATION: Acute respiratory failure, volume overload TECHNIQUE: Portable AP chest on 10/23/2019 at 0547 hours COMPARISON: 10/22/2019 portable AP chest at 0524 hours FINDINGS: The endotracheal tube is approximately 1 cm above karena. [place] range is 2-5 cm. NG tube in stomach. Left internal jugular central venous catheter tip overlies the superior vena cava. Large bore right internal jugular central venous catheter tip overlies the upper right atrium. There is aortic calcification and mild unfolding. Heart size is likely within normal range. Mild to moderate right pleural effusion. There are infiltrates and/atelectasis primarily in the lower lung zones, right greater than left. The left-sided infiltrate appears improved since 10/22/2019. No p neumothorax is evident. Diffuse idiopathic skeletal hyperostosis of the thoracic spine. IMPRESSION: ET tube tip n approximately 1 cm above karena; ideal range is 2-5 cm. Moderate moderate right pleural effusion, bilateral predominantly lower lung zone infiltrates and/or atelectasis, right greater than left, improved on the left since 10/22/2019 Reviewed, dictated and finalized at location A. IMPRESSION: ET tube tip n approximately 1 cm above karena; ideal range is 2-5 c m. Moderate moderate right pleural effusion, bilateral predominantly lower lung zo ne infiltrates and/or atelectasis, right greater than left, improved on the lef t since 10/22/2019
--- NOTE | ~2019-10-13 | XR_ITS ---
EXAMINATION: XR chest 1V portable DATE: 11/03/2019 06:12 INDICATION: Respiratory failure. TECHNIQUE: A single frontal view of the chest was obtained. COMPARISON: Chest single view 11/02/2019 FINDINGS: There is a small right pleural effusion. There are airspace opacities at right lung base. N o pneumothorax. The heart size is normal. There is a tracheostomy tube in expected position. A right internal jugular central venous catheter is seen with tip in the right atrium. A left internal jugula r central venous catheter is seen with tip in the superior vena cava. A surgical drain overlies left upper quadrant. Skin mallory are noted at the abdomen. IMPRESSION: 1. Stable small right pleural effusion. 2. Stable airspace opacities at right lung base, consistent with atelectasis versus pneumonia. Reviewed, dictated and finalized at location A. IMPRESSION: 1. Stable small right pleural effusion. 2. Stable airspace opacities at right lung base, consistent with atelectasis ve rsus pneumonia.
--- NOTE | ~2019-10-13 | US_ITS ---
EXAMINATION: US thoracentesis DATE: 10/27/2019 14:57 INDICATION: Right pleural effusion TECHNIQUE: The procedure and its risks and benefits were discussed with the patient's . Potential risks discussed included bleeding, infection, and pneumothorax. The patient understood the risks and agreed to proceed. The skin was prepped and draped in sterile fashion. 1% lidocaine was used for loc al anesthesia. Under ultrasound guidance, a 5 Fr catheter with trochar was advanced into the right pl eural effusion. Fluid was aspirated. The catheter was removed, and a dressing was applied. There were no immediate complications. FINDINGS: Ultrasound images demonstrate a small complex right pleural effusion with a few thin internal septati ons and the catheter within the fluid. IMPRESSION: 1. Successful ultrasound-guided thoracentesis yielding 150 mL of clear kilo-colored fluid. Reviewed, dictated and finalized at location A. IMPRESSION: 1. Successful ultrasound-guided thoracentesis yielding 150 mL of clear kilo-c olored fluid.
--- NOTE | ~2019-10-13 | XR_ITS ---
EXAMINATION: XR abdomen/kub 1V DATE: 11/04/2019 18:45 INDICATION: Ileus TECHNIQUE: A supine view of the abdomen on 2 radiographs was obtained. COMPARISON: 10/31/2019 FINDINGS: Postoperative changes including midline skin mallory and a persistent surgical drain in the pelvis. T he nasogastric tube and a prior left upper quadrant surgical drain are no longer present. Distal tip of a large-bore central venous catheter is seen at the high right atrium. Small amount of gas in the stomach and colon. No dilated gas-filled loops of bowel to suggest obstruction. Small to moderate rig ht pleural effusion with right basilar atelectasis and/or pneumonia. There are bridging osteophytes a t multiple levels in the spine, consistent with diffuse idiopathic skeletal hyperostosis (DISH). IMPRESSION: 1. No dilated bowel to suggest obstruction. 2. Small to moderate right pleural effusion with right basilar atelectasis and/or pneumonia. Reviewed, dictated and finalized at location A. IMPRESSION: 1. No dilated bowel to suggest obstruction. 2. Small to moderate right pleural effusion with right basilar atelectasis and/ or pneumonia.
--- NOTE | ~2019-10-13 | XR_ITS ---
EXAMINATION: XR chest 1V portable INDICATION: Respiratory failure TECHNIQUE: Portable AP chest at 0759 hours COMPARISON: 10/19/2019 FINDINGS: The endotracheal tube ends approximately 1.0 cm above the karena. The nasogastric tube is f ollowed as far as the stomach. Its tip is beyond the inferior margin of the radiograph. A left nutrition intern al jugular catheter ends with its tip near the superior cavoatrial junction. A small to moderate-size d right pleural effusion is unchanged in size. Diffuse airspace opacities persist without significant change. The cardiac silhouette is obscured. IMPRESSION: 1. Uayri-ri-keammngi size right pleural effusion, stable. 2. Diffuse lung disease without significant change, consistent with atelectasis versus pneumonia vers us pulmonary edema. Reviewed, dictated and finalized at location A. IMPRESSION: 1. Cdrrj-gn-vvlkrmry size right pleural effusion, stable. 2. Diffuse lung disease without significant change, consistent with atelectasis versus pneumonia versus pulmonary edema.
--- NOTE | ~2019-10-13 | XR_ITS ---
EXAMINATION: XR chest 1V portable DATE: 10/27/2019 05:47 INDICATION: Fluid overload TECHNIQUE: frontal view of the chest was obtained. COMPARISON: Chest radiograph dated 10/26/2019 FINDINGS: Endotracheal tube tip 2.1 cm above the karena. Nasogastric tube with distal tip and proximal side por t in the body of the stomach. Large-bore dual-lumen right internal jugular central venous catheter wi th distal tip near the superior cavoatrial junction. Smaller caliber left internal jugular central ve nous catheter with distal tip in the mid superior vena cava. Unchanged moderate sized right pleural effusion with associated atelectasis and/or pneumonia in the r ight lower lung zone. Mild patchy airspace opacities in the right mid and left mid and lower lung zon es. No pneumothorax or definitive left pleural effusion. Heart size is normal. IMPRESSION: 1. Unchanged moderate sized right pleural effusion with associated atelectasis and/or pneumonia in th e right lower lung zone. 2. Mild patchy airspace opacities in the right mid and left mid and lower lung zones which could repr esent atelectasis, pneumonia, pulmonary edema or some combination thereof. Reviewed, dictated and finalized at location A. IMPRESSION: 1. Unchanged moderate sized right pleural effusion with associated atelectasis and/or pneumonia in the right lower lung zone. 2. Mild patchy airspace opacities in the right mid and left mid and lower lung zones which could represent atelectasis, pneumonia, pulmonary edema or some com bination thereof.
--- NOTE | ~2019-10-13 | XR_ITS ---
EXAMINATION: XR chest 1V portable DATE: 10/30/2019 06:06 INDICATION: Fluid overload TECHNIQUE: frontal view of the chest was obtained. COMPARISON: Chest radiograph dated FINDINGS: Endotracheal tube tip is 1.5 cm above the karena. Nasogastric tube extends below the left hemidiaphra gm with distal tip collimated off the study. Large-bore dual-lumen right internal jugular central alfredito ous catheter with distal tip at the high right atrium. Smaller diameter left internal jugular central venous catheter with distal tip in the mid superior vena cava. Opacities in the right mid to lower lung zone consistent with small right pleural effusion and associ ated atelectasis and/or pneumonia. Increased interstitial pattern in the left lower lung zone which c ould represent mild pulmonary edema or additional pneumonia. No pneumothorax or left-sided pleural ef fusion. The cardiomediastinal silhouette is normal. IMPRESSION: 1. Unchanged small right pleural effusion with associated right basilar atelectasis and/or pneumonia. 2. Mild reticular opacities in the left lower lung zone which could represent additional atelectasis, pneumonia or mild pulmonary edema. Reviewed, dictated and finalized at location A. IMPRESSION: 1. Unchanged small right pleural effusion with associated right basilar atelect asis and/or pneumonia. 2. Mild reticular opacities in the left lower lung zone which could represent a dditional atelectasis, pneumonia or mild pulmonary edema.
--- NOTE | ~2019-10-13 | XR_ITS ---
EXAMINATION: XR chest 1V portable EXAM DATE: 10/17/2019 05:48 INDICATION: Aspiration pneumonia. Acute respiratory failure. TECHNIQUE: Portable AP frontal chest x-ray was obtained. Comparison is made to prior examination from 730, 731. FINDINGS: Patient is rotated to the right. Endotracheal tube tip is likely at the karena, consider re tracting 2 cm. Both lungs are being aerated. There is a nasogastric tube tip overlying gastric body, expected position. Moderate amount of ill-defined right perihilar edema and/or pneumonia. Evidence of left perihilar air space disease better visualized today. There is moderate right pleural effusion with adjacent segment al atelectasis. There is no pneumothorax suspected. Cardiomediastinal silhouette is normal. There are bony degenerative changes. The left perihilar airspace disease is better visualized today, difficult to ascertain whether this i nterval progression or is technical. IMPRESSION: 1. Endotracheal tube at karena, recommend retracting 2 cm. 2. Moderate right pleural effusion, adjacent atelectasis. 3. Perihilar edema and/or pneumonia. I discussed tube position, recommendation with ICU nurse Jose at 10/17/2019 07:54 CDT. 1. Reviewed, dictated and finalized at location A. IMPRESSION: 1. Endotracheal tube at karena, recommend retracting 2 cm. 2. Moderate right pleural effusion, adjacent atelectasis. 3. Perihilar edema and/or pneumonia. I discussed tube position, recommendation with ICU nurse Jose at 10/17/2019 07 :54 CDT. 1.
--- NOTE | ~2019-10-13 | XR_ITS ---
EXAMINATION: XR chest ET placement EXAM DATE: 10/17/2019 11:04 INDICATION: Reintubated. Aspiration pneumonia. Acute respiratory failure. TECHNIQUE: Portable AP frontal chest x-ray was obtained. Comparison is made to prior examination from earlier same date. FINDINGS: Patient is rotated to the right. Endotracheal tube tip is approximately 1 cm above the rich na, could be safely retracted 1-2 cm. Both lungs are being aerated. There is a nasogastric tube tip o verlying gastric body, expected position. Moderate amount of ill-defined right perihilar edema and/or pneumonia. Small amount of left perihilar airspace disease better visualized today. There is moderate right pleural effusion with adjacent seg mental atelectasis. There is no pneumothorax suspected. Cardiomediastinal silhouette is normal. T here are bony degenerative changes. IMPRESSION: 1. Endotracheal tube could be safely retracted 1-2 cm. 2. Moderate right pleural effusion, adjacent atelectasis. 3. Perihilar edema and/or pneumonia. Reviewed, dictated and finalized at location A.
--- NOTE | ~2019-10-13 | XR_ITS ---
EXAMINATION: 2. DATE: 10/28/2019 06:22 INDICATION: Fluid overload TECHNIQUE: frontal view of the chest was obtained. COMPARISON: Chest radiograph dated 10/27/2019 FINDINGS: Endotracheal tube tip 3.4 cm above the karena. Nasogastric tube extends below the left hemidiaphragm with distal tip collimated off the study. Large-bore dual-lumen right internal jugular central venou s catheter with distal tip at the high right atrium. Smaller diameter left internal jugular central v enous catheter with distal tip in the midsuperior vena cava. Opacities in the right mid to lower lung zone consistent with small right pleural effusion and associ ated atelectasis and/or pneumonia. Increased interstitial pattern in the left lower lung zone which c ould represent mild pulmonary edema or additional pneumonia. No pneumothorax or left-sided pleural ef fusion. The cardiomediastinal silhouette is normal. IMPRESSION: 1. Unchanged small right pleural effusion with associated right basilar atelectasis and/or pneumonia. 2. Mild reticular opacities in the left lower lung zone which could represent additional atelectasis, pneumonia or mild pulmonary edema. Reviewed, dictated and finalized at location A. IMPRESSION: 1. Unchanged small right pleural effusion with associated right basilar atelect asis and/or pneumonia. 2. Mild reticular opacities in the left lower lung zone which could represent a dditional atelectasis, pneumonia or mild pulmonary edema.
--- NOTE | ~2019-10-13 | XR_ITS ---
EXAMINATION: XR chest 1V portable EXAM DATE: 10/16/2019 06:17 INDICATION: Aspiration pneumonia. Acute respiratory failure. TECHNIQUE: Portable AP frontal chest x-ray was obtained. Comparison is made to prior examination from 10/14, 10/13, 10/13/2019. FINDINGS: Endotracheal tube tip is 2 centimeters above the karena (ideal range is between 2 to 5 cm). There is a nasogastric tube tip overlying gastric body, expected position. Moderate amount of ill-defined right perihilar edema and/or pneumonia. There is moderate right pleur al effusion with adjacent segmental atelectasis. There is no pneumothorax suspected. Cardiomediast inal silhouette is normal. There are bony degenerative changes. Accounting for differences in maryjo hnique, there is no significant interval change. IMPRESSION: 1. Tubes in position 2. Moderate right pleural effusion, adjacent atelectasis. 3. Perihilar edema and/or pneumonia. Reviewed, dictated and finalized at location A.
--- NOTE | ~2019-10-13 | XR_ITS ---
EXAMINATION: XR chest 1V portable DATE: 10/24/2019 05:56 INDICATION: Acute respiratory failure. Volume overload. TECHNIQUE: frontal view of the chest was obtained. COMPARISON: Chest radiograph dated 10/23/2019 FINDINGS: Endotracheal tube tip 0.6 cm above the karena. Large-bore dual-lumen right internal jugular central v enous catheter with distal tip near the superior cavoatrial junction. Small bore left internal jugula r central venous catheter with distal tip in the midsuperior vena cava. Nasogastric tube extends bel ow the left hemidiaphragm with distal tip collimated off the study. Unchanged moderate sized right pleural effusion and trace left pleural effusion. Opacities in the low er lung zones, right greater than left which could represent atelectasis and/or pneumonia. No pneumot horax. The cardiomediastinal silhouette is normal. There are bridging osteophytes at multiple levels in the spine, consistent with diffuse idiopathic skeletal hyperostosis (DISH). IMPRESSION: 1. Endotracheal tube tip 6 mm above the karena. Recommend withdrawal by 2 cm. 2. Unchanged moderate sized right and trace left pleural effusions. 3. Unchanged opacities in the bilateral lower lung zones, right greater than left which could represe nt atelectasis and/or pneumonia. Reviewed, dictated and finalized at location A. IMPRESSION: 1. Endotracheal tube tip 6 mm above the karena. Recommend withdrawal by 2 cm. 2. Unchanged moderate sized right and trace left pleural effusions. 3. Unchanged opacities in the bilateral lower lung zones, right greater than le ft which could represent atelectasis and/or pneumonia.
--- NOTE | ~2019-10-13 | XR_ITS ---
EXAMINATION: XR chest 1V portable DATE: 10/25/2019 06:22 INDICATION: Acute respiratory failure and volume overload. TECHNIQUE: frontal view of the chest was obtained. COMPARISON: Chest radiograph dated 10/24/2019 FINDINGS: Endotracheal tube tip 2.7 cm above the karena. Nasogastric tube in the stomach with proximal side-por t below the level of the gastroesophageal junction. Large-bore dual-lumen right internal jugular cent ral venous catheter with distal tip in the high right atrium. Smaller bore left internal jugular cent ral venous catheter with distal tip in the midsuperior vena cava. Unchanged moderate sized right pleural effusion with associated atelectasis and/or pneumonia in the r ight lower lung zone. Increased interstitial pattern in the bilateral mid to lower lung zones consist ent with mild pulmonary edema. No pneumothorax or definitive left pleural effusion. Heart size is nor mal. There are bridging osteophytes at multiple levels in the spine, consistent with diffuse idiopath ic skeletal hyperostosis (DISH). IMPRESSION: 1. Unchanged moderate sized right pleural effusion with associated atelectasis and/or pneumonia in th e right lower lung zone. 2. Mild pulmonary edema. Reviewed, dictated and finalized at location A. IMPRESSION: 1. Unchanged moderate sized right pleural effusion with associated atelectasis and/or pneumonia in the right lower lung zone. 2. Mild pulmonary edema.
--- NOTE | ~2019-10-13 | CT_ITS ---
EXAMINATION: CT abdomen pelvis wo con DATE: 10/13/2019 11:52 INDICATION: Abdominal pain. TECHNIQUE: Computed tomography (CT) of the abdomen and pelvis was performed without intravenous contr ast. Automated exposure control and iterative reconstruction technique were employed. The dose-length product was 349.20 mGy-cm. COMPARISON: CT abdomen and pelvis 09/01/2019 FINDINGS: The visualized portions of the lung bases demonstrate a moderate-sized right pleural effusi on with pleural thickening. There is chronic rounded atelectasis in right middle lobe and right lower lobe. Calcified bilateral lung nodules and calcified right hilar lymph nodes are consistent with old granulomatous disease. The heart size is normal. There are coronary artery calcifications. There is a small pericardial effusion. Calcifications in the liver and spleen are consistent with old granulom atous disease. There are extensive vascular calcifications. The gallbladder is distended and contains gallstones. The pancreas, adrenal glands, and kidneys are normal. The prostate is moderately enlarge d. There are scattered diverticula in the colon. There is wall thickening of the sigmoid colon. There are no dilated loops of bowel. The appendix is not visualized. There is a small volume of ascites. A peritoneal dialysis catheter is noted in the pelvis. There are stents in the superficial femoral art eries. There is severe lumbar spondylosis. There are bridging endplate osteophytes at multiple levels in the thoracic spine, consistent with diffuse idiopathic skeletal hyperostosis (DISH). IMPRESSION: 1. Wall thickening of sigmoid colon, consistent with colitis. 2. Cholelithiasis. Gallbladder wall thickening may be secondary to fasting or acute cholecystitis. Co rrelate with physical exam. 3. Chronic moderate-sized right pleural effusion. 4. Small pericardial effusion, new from 09/01/2019. Reviewed, dictated and finalized at location A. IMPRESSION: 1. Wall thickening of sigmoid colon, consistent with colitis. 2. Cholelithiasis. Gallbladder wall thickening may be secondary to fasting or a cute cholecystitis. Correlate with physical exam. 3. Chronic moderate-sized right pleural effusion. 4. Small pericardial effusion, new from 09/01/2019.
--- NOTE | ~2019-10-13 | XR_ITS ---
EXAMINATION: XR G tube evaluation w imaging DATE: 10/30/2019 14:13 INDICATION: G-tube evaluation TECHNIQUE: 2 AP views of the abdomen and pelvis were obtained following first injection of contrast i nto the percutaneous gastrostomy tube and subsequently into the nasogastric tube. COMPARISON: 10/30/2019 at 11:47 AM FINDINGS: Initial image again demonstrates a loculated collection of contrast surrounding the percutaneous luis felipe rostomy tube bulb which does not appear to communicate with the stomach or contact the nasogastric tu be. Subsequent image demonstrates contrast injected into the nasogastric tube extending throughout th e normally configured and appearing stomach. Surgical drain in the pelvis. Bilateral femoral artery s tents. Midline surgical skin mallory. No dilated loops of bowel to suggest obstruction. IMPRESSION: 1. Contrast injected into the previously placed gastrostomy tube filling a loculated fluid collection external to the stomach possibly in the lesser sac. 2. Nasogastric tube in the stomach confirmed by subsequent contrast injection. Reviewed, dictated and finalized at location A. IMPRESSION: 1. Contrast injected into the previously placed gastrostomy tube filling a locu lated fluid collection external to the stomach possibly in the lesser sac. 2. Nasogastric tube in the stomach confirmed by subsequent contrast injection.
--- NOTE | ~2019-10-13 | XR_ITS ---
XR abdomen NG/feed tube insert INDICATION: Evaluate NG tube position. TECHNIQUE: Limited KUB perform for evaluating NG tube . COMPARISON: 10/04/2006 FINDINGS: NG tube tip in the stomach. Visualized bowel gas pattern is unremarkable.There is a perito jorge luis dialysis catheter in the pelvis. Moderate lumbar spondylosis. IMPRESSION: 1: NG tube tip in the stomach. Reviewed, dictated and finalized at location A.
--- NOTE | ~2019-10-13 | XR_ITS ---
EXAMINATION: XR chest 1V portable INDICATION: Shortness of TECHNIQUE: Portable AP chest at 0537 hours COMPARISON: 10/18/2019 FINDINGS: The endotracheal tube ends approximately 1.4 cm above the karena. The nasogastric tube is f ollowed as far as the stomach. Its tip is beyond the inferior margin of the radiograph. A moderate si ze right pleural effusion is unchanged. There is a small left pleural effusion. Bibasilar airspace op acities, right greater than left, are stable. There is no pneumothorax. IMPRESSION: 1. Moderate size right and small left pleural effusions without significant change. 2. Bibasilar airspace opacities, likely atelectasis. Reviewed, dictated and finalized at location A. IMPRESSION: 1. Moderate size right and small left pleural effusions without significant caleb nge. 2. Bibasilar airspace opacities, likely atelectasis.
--- NOTE | ~2019-10-13 | XR_ITS ---
EXAMINATION: XR chest 1V portable DATE: 10/29/2019 06:06 INDICATION: Fluid overload TECHNIQUE: frontal view of the chest was obtained. COMPARISON: Chest radiograph dated 10/28/2019 FINDINGS: Endotracheal tube tip 1.9 cm above the karena. Nasogastric tube extends below the left hemidiaphragm with distal tip collimated off the study. Large-bore dual-lumen right internal jugular central venous catheter with distal tip at the high right atrium. Smaller diameter left internal jugular central ve nous catheter with distal tip in the mid superior vena cava. Opacities in the right mid to lower lung zone consistent with small right pleural effusion and associ ated atelectasis and/or pneumonia. Increased interstitial pattern in the left lower lung zone which c ould represent mild pulmonary edema or additional pneumonia. No pneumothorax or left-sided pleural ef fusion. The cardiomediastinal silhouette is normal. IMPRESSION: 1. Unchanged small right pleural effusion with associated right basilar atelectasis and/or pneumonia. 2. Mild reticular opacities in the left lower lung zone which could represent additional atelectasis, pneumonia or mild pulmonary edema. Reviewed, dictated and finalized at location A. IMPRESSION: 1. Unchanged small right pleural effusion with associated right basilar atelect asis and/or pneumonia. 2. Mild reticular opacities in the left lower lung zone which could represent a dditional atelectasis, pneumonia or mild pulmonary edema.
--- NOTE | ~2019-10-13 | XR_ITS ---
EXAMINATION: XR chest 1V portable INDICATION: Acute respiratory failure TECHNIQUE: Portable AP chest at 0524 hours COMPARISON: 10/21/2019 FINDINGS: The endotracheal tube ends approximately 1.1 cm above the karena. The nasogastric tube is f ollowed as far as the stomach. Its tip is beyond the inferior margin of the radiograph. A right inter nal jugular dialysis catheter ends with its tip in the right atrium. A left internal jugular central venous catheter ends with its tip in the superior vena cava. A small to moderate size right and small left pleural effusion are stable. Diffuse interstitial and airspace opacities persist with slight wo rsening in the left lung base. There is no pneumothorax. The cardiomediastinal silhouette is stable. IMPRESSION: 1. Diffuse lung disease with slight worsening in the left lung base, consistent with atelectasis vers us pneumonia versus pulmonary edema. 2. Nyegf-lj-otbejodh sized right pleural effusion. Reviewed, dictated and finalized at location A. IMPRESSION: 1. Diffuse lung disease with slight worsening in the left lung base, consistent with atelectasis versus pneumonia versus pulmonary edema. 2. Klmbj-xm-bcxublpr sized right pleural effusion.
--- NOTE | ~2019-10-13 | XR_ITS ---
EXAMINATION: XR chest 1V portable EXAM DATE: 10/14/2019 05:48 INDICATION: Respiratory failure. TECHNIQUE: Portable AP frontal chest x-ray was obtained. Comparison is made to prior examination from 10/13/2019. FINDINGS: Endotracheal tube is above the karena, both lungs being aerated. There is a nasogastric tub e seen with tip collimated off the study, but below the left hemidiaphragm. Moderate amount of ill-defined right perihilar edema and/or pneumonia. There is moderate right pleur al effusion with adjacent segmental atelectasis. There is no pneumothorax suspected. Cardiac silho uette is stable in size compared to prior exam. There are bony degenerative changes. Accounting f or differences in technique, there is no significant interval change. IMPRESSION: 1. Tubes in position 2. Moderate right pleural effusion, adjacent atelectasis. 3. Perihilar edema and/or pneumonia Reviewed, dictated and finalized at location A.
--- NOTE | ~2019-10-13 | US_ITS ---
EXAMINATION: US right upper quadrant DATE: 11/19/2019 11:24 INDICATION: Elevated liver function tests TECHNIQUE: Multiple grayscale and Doppler ultrasound images of the abdomen were obtained. COMPARISON: 09/22/2019 FINDINGS: Bowel gas obscures visualization of the pancreas. The visualized portions of the pancreas a re unremarkable. The liver is normal with normal echogenicity and echotexture. No surface nodularity. Normal hepatopetal flow in the main portal vein. Stones are present in the gallbladder which is mild ly distended. No pericholecystic fluid or gallbladder wall thickening are identified. The normal comm on bile duct measures 5 mm. There was no sonographic Sahni sign, sensitivity is decreased by medicat ion. IMPRESSION: 1. Cholelithiasis and mild gallbladder distention without additional findings of acute cholecystitis. Consider nuclear hepatobiliary scan. Reviewed, dictated and finalized at location A. IMPRESSION: 1. Cholelithiasis and mild gallbladder distention without additional findings o f acute cholecystitis. Consider nuclear hepatobiliary scan.
--- NOTE | ~2019-10-13 | XR_ITS ---
EXAMINATION: XR chest 1V portable DATE: 11/14/2019 06:38 INDICATION: Respiratory failure TECHNIQUE: frontal view of the chest was obtained. COMPARISON: Chest radiograph dated 11/03/[address] dated 11/06/2019 FINDINGS: Endotracheal tube at the thoracic inlet. Large bore dual lumen right internal jugular central venous catheter with distal tip at the high right atrium. Smaller bore left internal jugular central venous catheter with distal tip in the midsuperior vena cava. Pigtail tip of the left upper quadrant abscess drain below the left hemidiaphragm. Midline surgical clips at the upper abdomen. Small left and moderate sized right pleural effusions. Interstitial and airspace opacities in the shamika ateral mid and lower lung zones. No pneumothorax. The cardiomediastinal silhouette is normal. IMPRESSION: 1. Unchanged moderate right and small left pleural effusions. 2. Unchanged opacities in the bilateral mid and lower lung zones likely representing combination of p neumonia and atelectasis. Reviewed, dictated and finalized at location A. IMPRESSION: 1. Unchanged moderate right and small left pleural effusions. 2. Unchanged opacities in the bilateral mid and lower lung zones likely represe nting combination of pneumonia and atelectasis.
--- NOTE | ~2019-10-13 | XR_ITS ---
EXAMINATION: XR chest 1V portable EXAM DATE: 12/01/2019 05:51 INDICATION: Respiratory failure. TECHNIQUE: Portable AP frontal chest x-ray was obtained. Comparison is made to prior examination from 11/21/2019. FINDINGS: There is tracheostomy tube, left IJ venous catheter and a right-sided IJ Lomax catheter. There is moderate amount of acute bilateral airspace disease. Small to moderate right, small left pl eural effusions. There is no pneumothorax suspected. The cardiomediastinal silhouette is prominent but magnified on this AP technique. The bones and soft tissues are unremarkable. Accounting for differences in technique, there is no significant interval change. IMPRESSION: 1. Line(s) and tube(s) in position. 2. Stable airspace disease and effusions. Reviewed, dictated and finalized at location A.
--- NOTE | ~2019-10-13 | XR_ITS ---
EXAMINATION: XR G tube evaluation w imaging DATE: 11/09/2019 13:30 INDICATION: Gastric perforation. Evaluate for extent gastrostomy tube placement. TECHNIQUE: AP and left and right oblique views of the abdomen and pelvis were obtained following inje ction of 30 mL water-soluble contrast material into the patient's percutaneous gastrostomy tube. COMPARISON: CT dated 11/06/2019 FINDINGS: The contrast extends through the tube into the stomach. A small amount of gas within the stomach prox imal phalanx the margins of the bulb at the end of the gastrostomy tube. A minimal amount of contrast extends into the gastric antrum. The majority of the contrast passes into the more proximal stomach and through a defect at the fundus. Subsequently tracks laterally along the inferior margin of the le ft hemidiaphragm. The extraluminal extravasated contrast is collected by the left upper quadrant perc utaneous abscess drain which itself opacifies with contrast on the final images. Additional surgical drain is seen coiled in the pelvis. Distal tip of a large-bore central venous catheter extends from c ephalad to caudal with distal tip at the high right atrium. Midline skin mallory project over the khushbu tral abdomen. Mild blunting at the left costophrenic angle and larger opacity at the right lower lung zone consistent with small left and small to moderate sized right pleural effusions. IMPRESSION: 1. Percutaneous gastrostomy tube bulb in the body of the stomach with injected contrast extending thr ough a defect in the gastric wall the fundus. The extraluminal extravasated contrast underlying the l eft hemidiaphragm is rapidly collected by the left upper quadrant percutaneous abscess drain. 2. Small left and jfrwk-pe-pzabpjfd right pleural effusions. Reviewed, dictated and finalized at location A. IMPRESSION: 1. Percutaneous gastrostomy tube bulb in the body of the stomach with injected contrast extending through a defect in the gastric wall the fundus. The extralu danae extravasated contrast underlying the left hemidiaphragm is rapidly collec dixon by the left upper quadrant percutaneous abscess drain. 2. Small left and vhmlx-ux-gtovnspw right pleural effusions.
--- NOTE | ~2019-10-13 | XR_ITS ---
EXAMINATION: XR fl guide central line place DATE: 10/21/2019 14:37 INDICATION: Placement of a right internal jugular tunneled central venous dialysis catheter. TECHNIQUE: 2 fluoroscopic spot images of the central chest were obtained during procedure performed leticia Levi. Radiologist was not present for the imaging or procedure. The amount of fluoroscopy ti me used during this procedure was 2.1 minutes. COMPARISON: 10/21/2019 FINDINGS: Interval placement of a large-bore dual-lumen right internal jugular central venous catheter with dis kika tip near the superior cavoatrial junction. Unchanged smaller diameter left internal jugular centr al venous catheter with distal tip at the midsuperior vena cava. Endotracheal tube tip remains approx imately 1 cm above the karena. Nasogastric tube with proximal side-port in the body of the stomach an d distal tip collimated beyond the inferior margin of the gplwx-ze-pdca. Persistent opacity in the ri ght lower lung zone which could represent atelectasis, pneumonia, small pleural effusion or some comb ination thereof. No pneumothorax. IMPRESSION: 1. Interval placement of a right internal jugular central venous catheter with distal tip tip near th e superior cavoatrial junction. Reviewed, dictated and finalized at location A. IMPRESSION: 1. Interval placement of a right internal jugular central venous catheter with distal tip tip near the superior cavoatrial junction.
--- NOTE | ~2019-10-13 | CT_ITS ---
EXAMINATION: CT guide absc cath placement DATE: 11/06/2019 15:35 INDICATION: Perisplenic abscess. TECHNIQUE: The skin overlying the left upper quadrant of the abdomen was prepped and draped in usual sterile fashion. Anesthetic was administered with 1% lidocaine subcutaneously. An 18 gauge trochar n eedle was inserted into the perisplenic abscess with CT guidance. The needle was exchanged over a wir e for 6 Martiniquais, 8 Martiniquais, and 10 Martiniquais dilators and then for a 10 Martiniquais pigtail catheter. The leslie ter was stitched to the skin, and a sterile dressing was applied. The mA was adjusted according to pa tient size. Iterative reconstruction technique was employed. The dose-length product was 249.01 mGy-c m. There were no immediate complications. FINDINGS: CT images demonstrate the catheter within the perisplenic abscess. 10 mL fluid was aspirate d for testing. IMPRESSION: 1. Successful CT-guided perisplenic abscess drainage. 2. 10 mL hernandez, opaque fluid was sent for aerobic and anaerobic cultures. Reviewed, dictated and finalized at location A.
--- NOTE | ~2019-10-13 | XR_ITS ---
EXAMINATION: XR chest 1V portable DATE: 11/02/2019 06:12 INDICATION: Respiratory failure. TECHNIQUE: A single frontal view of the chest was obtained. COMPARISON: Chest single view 11/01/2019 FINDINGS: There is a small right pleural effusion. There are airspace opacities at right lung base. L eft lateral costophrenic angle is excluded. No pneumothorax. The heart size is normal. There is a tra cheostomy tube in expected position. A right internal jugular central venous catheter is seen with ti p in the right atrium. A left internal jugular central venous catheter is seen with tip in the superi or vena cava. A surgical drain overlies left upper quadrant. Skin mallory overlie the abdomen. IMPRESSION: 1. Stable small right pleural effusion. 2. Stable airspace opacities at right lung base, consistent with atelectasis versus pneumonia. Reviewed, dictated and finalized at location A. IMPRESSION: 1. Stable small right pleural effusion. 2. Stable airspace opacities at right lung base, consistent with atelectasis ve rsus pneumonia.
--- NOTE | ~2019-10-13 | CT_ITS ---
EXAMINATION: CT chest abdomen pelvis w con DATE: 10/17/2019 14:55 CDT INDICATION: Worsening lactic acidosis TECHNIQUE: Computed tomography (CT) of the chest, abdomen, and pelvis was performed with 100 cc Omnip aque 350 intravenous contrast. The dose-length product was 1212.39 mGy-cm. Automated exposure control and iterative reconstruction technique were employed. COMPARISON: CT dated 10/13/2019 FINDINGS: CHEST CT: Progression of patchy bilateral airspace disease, compatible with developing pneumonia. There is mode rate right pleural effusion with underlying compressive atelectasis. There is an endotracheal tube, t ip of the karena. Recommend retraction. Mild mediastinal lymphadenopathy, likely reactive. Small left pleural effusion. ABDOMEN/PELVIS CT: There is ascites with loculated fluid in the left upper and mid abdomen. There is additional ascites in the right upper abdomen and pelvis with peritoneal dialysis catheter present. There is bladder wal l thickening. There is generalized subcutaneous edema. Extensive atherosclerosis without evidence for aneurysm. Moderate thoracic and lumbar spondylosis. IMPRESSION: 1. Interval progression of patchy bilateral airspace disease, compatible with pneumonia. 2: Bilateral pleural effusions, right greater than left with underlying compressive atelectasis. 3: Endotracheal tube tip at the karena. Recommend retraction 3-4 cm. 4: Moderate ascites which appears loculated in the left upper abdomen. Cannot exclude peritonitis. Pe roneal dialysis catheter present in the pelvis. 5: Abnormal bladder wall thickening, suspicious for cystitis. Correlate clinically. Reviewed, dictated and finalized at location A. IMPRESSION: 1. Interval progression of patchy bilateral airspace disease, compatible with p neumonia. 2: Bilateral pleural effusions, right greater than left with underlying km sive atelectasis. 3: Endotracheal tube tip at the karena. Recommend retraction 3-4 cm. 4: Moderate ascites which appears loculated in the left upper abdomen. Cannot e xclude peritonitis. Peroneal dialysis catheter present in the pelvis. 5: Abnormal bladder wall thickening, suspicious for cystitis. Correlate clinica lly.
--- NOTE | 2019-10-13 10:13 | ECG_ITS ---
Measurements Intervals [place] Rate: 77 P: GA: 0 QRS: 38 QRSD: 93 T: 38 QT: 376 QTc: 426 Interpretive Statements ATRIAL FIBRILLATION VENTRICULAR COUPLET AND VENTRICULAR PREMATURE COMPLEXES NONSPECIFIC ST & T-WAVE ABNORMALITY- INF/LAT LEADS ABNORMAL ECG Electronically Signed On 10-13-2019 10:24:04 CDT by Clarence Nova D.O.
[2019-10-13 10:42] LABS: Basophils Percent Auto 0.1 % (0.2-1.2); Eosinophils Absolute Auto 0.2 K/mm3 (0-0.3); Eosinophils Percent Auto 1.3 % (0-4.4); Hematocrit 29.7 % (42.0-52.0); Immature Granulocyte Absolute 0.12 K/mm3 (0.00-0.031); Immature Granulocyte Percent A 0.7 % (0-0.5); Lymphocytes Absolute Auto 1.44 K/mm3 (0.9-3.2); Lymphocytes Percent Auto 8.1 % (18.3-44.2); Mean Corpuscular HGB Conc 33.7 g/dl (32-36); Mean Corpuscular Hemoglobin 31.5 pg (26-34); Mean Corpuscular Volume 93.7 fl (80-100); Mean Platelet Volume 8.8 fl (7.4-10.4); Monocytes Absolute Auto 1.7 K/mm3 (0.1-0.6); Monocytes Percent Auto 9.4 % (2.6-8.5); Neutrophils Absolute Auto 14.4 K/mm3 (1.3-6.7); Neutrophils Percent Auto 80.4 % (45.5-73.1); Platelet Count Result 517 k/mm3 (150-375); Red Blood Count 3.17 M/mm3 (4.6-6.20); Red Cell Distribution Width 14.2 % (11.5-14.5); White Blood Count 17.9 K/mm3 (4.5-10.0)
[2019-10-13 10:53] LABS: Alanine Aminotransferase 37 U/L (4-50); Albumin Level 2.1 g/dL (3.5-5.1); Alkaline Phosphatase 175 U/L (38-126); Aspartate Amino Transferase 35 U/L (17-59); Bilirubin,Total 0.2 mg/dL (0.2-1.3); Blood Urea Nitrogen 32 mg/dL (9-20); Calcium 7.4 mg/dL (8.4-10.2); Carbon Dioxide 29 mmol/L (22-30); Chloride 83 mmol/L (98-107); Estimated CRCL calculation 10 ml/min; Estimated Glomerular Filt Rate 12; Glucose 155 mg/dL (75-110); Lipase 52 U/L (23-300); Sodium 122 mmol/L (137-145)
--- NOTE | 2019-10-13 11:25 | PC.NURSE ---
Straight catheter attempt x 1, failed d/t pt condition. Coude catheter obtained, on second attempt pt notifies in tube conversion technician Darrell and in tube conversion technician Radha of previous bladder surgery. PARVIZ Merchant and TREVOR Acosta notified, TREVOR Acosat orders to hold off on further attempts.
--- NOTE | 2019-10-13 11:31 | PC.NURSE ---
Bladder Scan per EDP request, 200ml at this time
--- NOTE | 2019-10-13 11:36 | ED.ABDPAIN ---
HPI - Abdominal Pain General Chief Complaint: Abdominal Pain <Karla Ellison PA-C - Last Filed: 10/13/19 14:17> Stated Complaint: ABD PAIN <Karla Ellison PA-C - Last Filed: 10/13/19 14:17> Time Seen by Provider: 10/13/19 11:19 <Karla Ellison PA-C - Last Filed: 10/13/19 14:17> Source: patient <SHENG Macias Last Filed: 10/13/19 14:17> Mode of arrival: EMS <SHENG Macias Last Filed: 10/13/19 14:17> Limitations: no limitations <Karla Ellison PA-C - Last Filed: 10/13/19 14:17> History of Present Illness HPI narrative: This is a 78 year old male that presents to the ER for abdominal pain x 3 days. Reports diffuse constant abdominal pain. Reports he has ESRD and is on peritoneal dialysis. Reports he was unable to finish his dialysis last night due to pain. Reports one episode of vomiting on Saturday. Also reports an episode of diarrhea. Denies fever, chest pain, shortness of breath, dysuria or hematuria. <Karla Ellison PA-C - Last Filed: 10/13/19 14:17> Related Data Home Medications: Home Medications Medication Instructions Recorded Confirmed B complex-vitamin C-folic acid 0.8 1 tablet PO DAILY 03/24/19 09/19/19 mg tablet carvedilol 25 mg tablet 25 mg PO BID 03/24/19 09/19/19 clopidogrel 75 mg tablet 75 mg PO DAILY 03/24/19 09/19/19 fluticasone propionate 50 2 spray NASAL DAILY 03/24/19 09/19/19 mcg/actuation nasal spray,suspension gabapentin 100 mg capsule 200 mg PO DAILY 03/24/19 09/19/19 insulin regular human 100 unit/mL 1 sliding scale dose SUB-Q 03/24/19 09/19/19 injection solution USEASDIRECTD torsemide 100 mg tablet 100 mg PO QAM 03/24/19 09/19/19 acetaminophen 325 mg capsule 325 mg PO Q6H PRN 05/14/19 09/19/19 cholecalciferol (vitamin D3) 50 50 mcg PO DAILY 05/14/19 09/19/19 mcg (2,000 unit) capsule Probiotic 1 cap PO DAILY 08/24/19 09/19/19 amlodipine 2.5 mg PO DAILY 08/24/19 09/19/19 aspirin [Aspir-81] 81 mg PO DAILY 08/24/19 09/19/19 magnesium oxide 40 mg PO DAILY 08/24/19 09/19/19 potassium chloride 20 meq PO DAILY 08/24/19 09/19/19 levothyroxine 88 mcg tablet 88 mcg PO DAILY 09/14/19 09/19/19 pravastatin 80 mg PO DAILY 09/19/19 09/19/19 <Karla Ellison PA-C - Last Filed: 10/13/19 14:17> Allergies/Adverse Reactions: Allergies Allergy/AdvReac Type Severity Reaction Status Date / Time amoxicillin Allergy Severe HIGH Verified 09/19/19 16:09 FEVER/LETHARGY Penicillins Allergy Severe HIGH Verified 09/19/19 16:09 FEVER/LETHARGY <Karla Ellison PA-C - Last Filed: 10/13/19 14:17> Review of Systems Review of Systems: Narrative: CONSTITUTIONAL: Denies fever CARDIOVASCULAR: Denies chest pain RESPIRATORY: Denies dyspnea. GASTROINTESTINAL: Reports abdominal pain, nausea, vomiting, and diarrhea. GENITOURINARY: Denies dysuria or hematuria. <Karla Ellison PA-C - Last Filed: 10/13/19 14:17> All systems reviewed & are unremarkable except as noted in HPI and below <Karla Ellison PA-C - Last Filed: 10/13/19 14:17> [facility] Past Medical History Medical History: Medical History (Updated 10/13/19 @ 13:49 by Karla Ellison PA-C) Anemia of chronic disease Arthritis Back pain Bladder tumor Resected 09/15/2019 Coronary artery disease With history of stent. Diabetic peripheral neuropathy End-stage renal disease on peritoneal dialysis Managed by Dr. Lauren Glaucoma Hearing loss With bilateral hearing aids Hyperlipidemia Hypertension Hypothyroidism Insulin dependent type 2 diabetes mellitus Osteomyelitis (~05/2015) Peripheral arterial disease History of right lower extremity stent. Urethral stricture Status post dilatation 09/15/2019 <Karla Ellison PA-C - Last Filed: 10/13/19 14:17> Surgical History Surgical History: Surgical History (Updated 09/19/19 @ 18:22 by Karuna Rizvi OPS MANAGER) Amputation of fifth toe of right foot (~05/2015) History of heart artery stent (~10/2014)
[2019-10-13] MEDS: ONDANSETRON INJ 4 MG/2 ML VIAL IV PUSH (11:41)
[2019-10-13] MEDS: MORPHINE SULFATE 2 MG/ML INJ IV PUSH ×2 (11:41→17:16)
[2019-10-13] MEDS: metroNIDAZOLE 500 MG/ISO 100ML 500 MG/100 ML BAG 100 MG IVPB ×2 (13:14→19:44)
[2019-10-13] MEDS: POTASSIUM CHLORIDE 20 MEQ TABLET 40 MEQ PO (13:14)
[2019-10-13 13:15] LABS: NT Pro B Type Natriuretic Pept 7800 PG/ML (5-100)
[2019-10-13 13:57] LABS: Add Urine Microscopic? YES; Appearance Urine Cloudy (Clear); Bacteria Urine Trace /hpf; Bilirubin Urine Negative (Negative); Blood Urine 3+ (Negative); Color Urine Yellow (Yellow); Glucose Urine UA Negative (Negative); Ketones Urine Negative (Negative); Leukocyte Esterase Ur 3+ LEU/UL (Negative); Mucus Urine Rare /lpf; Nitrate Urine Negative (Negative); Protein Urine 2+ mg/dL (Negative); RBC Urine >75 /hpf (0-2); Specific Grav Ur 1.015 (1.001-1.035); Squamous Epithelial Cell Urine Moderate /hpf (Few); Urobilinogen Urine Negative mg/dL (<2.0); WBC Urine >75 /hpf
--- NOTE | 2019-10-13 15:04 | PM.CNGS ---
Assessment and Plan Assessment and plan (1) Abdominal pain: Qualifiers: Abdominal location: generalized Qualified Code(s): R10.84 - Generalized abdominal pain Code(s): R10.9 - Unspecified abdominal pain Status: Acute Assessment and Plan: The patient presents with generalized abdominal pain that he feels is similar pain to the last 2 occurrences of abdominal pain since August of 2019. CT scan reviewed and discussed with the patient in detail. He does have evidence of cholelithiasis with gallbladder distention, but his clinical presentation and physical exam do not correlate with acute cholecystitis. This seems unlikely to be the cause for his abdominal pain or leukocytosis. There was also evidence of sigmoid wall thickening, consistent with colitis. We will continue to treat this conservatively for now with IV antibiotics, IV fluids, and analgesics. This could be contributing to his abdominal pain. Urinary tract infection is another possible source for his leukocytosis. Urine culture is pending and he will be receiving IV antibiotics. We have asked that the patient also have his peritoneal fluid cultured prior to starting the antibiotics this admission to see if this is a source of infection and causing his abdominal pain. Continue to monitor him with serial abdominal exams and labs. I discussed the case with Dr. Levi who will also be seeing the patient separately. Thank you for allowing us to see the patient in consultation and we will continue to follow along with you. (2) Colitis: Code(s): K52.9 - Noninfective gastroenteritis and colitis, unspecified Status: Acute Assessment and Plan: Sigmoid colitis found on CT scan. Continue IV antibiotics and plan as mentioned above. Could be contributing to his abdominal pain. (3) Cholelithiasis: Code(s): K80.20 - Calculus of gallbladder without cholecystitis without obstruction Status: Acute Assessment and Plan: The patient has evidence of cholelithiasis on both the ultrasound on 09/22/[address] scan from the ER. The distention of the gallbladder noted on the CT scan could be related to fasting. Patient has had very little oral intake over the past several days. He does also have leukocytosis, but he does not have any other evidence of acute cholecystitis and his clinical presentation and exam do not correlate with this. Will continue to follow and see how the patient progresses, but I have low suspicion that cholecystitis would be the cause of his leukocytosis and abdominal pain. (4) Atrial fibrillation, new onset: Code(s): I48.91 - Unspecified atrial fibrillation Status: Acute Assessment and Plan: Rate-controlled a. fib. Apparently this is a new diagnosis for the patient. Patient has seen our Cardiology group in the past but are not currently consulted. Management per primary service. (5) Acute hypokalemia: Code(s): E87.6 - Hypokalemia Status: Acute Assessment and Plan: Potassium 3.0 and replaced in the ER. Continue to monitor labs. (6) Antiplatelet or antithrombotic long-term use: Code(s): Z79.02 - [facility] (current) use of antithrombotics/antiplatelets Status: Acute Assessment and Plan: Continue to hold Plavix for now. (7) Chronic hyponatremia: Code(s): E87.1 - Hypo-osmolality and hyponatremia Status: Acute (8) History of bladder cancer: Code(s): Z85.51 - Personal history of malignant neoplasm of bladder Status: Acute Assessment and Plan: S/p transurethral resection on 09/15/19. (9) Urinary tract infection: Qualifiers: Hematuria presence: with hematuria Urinary tract infection type: site unspecified Qualified Code(s): N39.0 - Urinary tract infection, site not specified; R31.9 - Hematuria, unspecified Code(s): N39.0 - Urinary tract infection, site not specified Status: Acute Assessment and Plan: Chadd
--- NOTE | 2019-10-13 15:08 | PC.NURSE ---
This patient, Ángel Fung, was admitted to IMU Room 207-01. Patient/family oriented to hospital policies and general routines including ID bracelet, bed and alarms, visiting hours, pain management, procedures, bathroom and other care routines, personal items, smoking policy, room service/diet, and visiting hours. Valuables list has been completed. Information on how to activate the Rapid Response Team has been discussed. Patient/Family are encouraged to report perceived risks to care and to ask questions if they do not understand what they are told or what they should do.
[2019-10-13] MEDS: SILVERGEL (ELTA) 45 ML 1 APPLIC TOPICAL (17:16)
[2019-10-13 18:50] LABS: Appearance Peritoneal Fluid Cloudy (Clear); Color Peritoneal Fluid Yellow (Colorless); Eosinophils Peritoneal Fluid 1 %; Lymphocytes Peritoneal Fluid 1 %; Mesothelial Cells Peritoneal Fluid 2 %; Monocytes Peritoneal Fluid 12 %; Neutrophils Peritoneal Fluid 84 % (0-25); Nucleated Cells Peritoneal Flu 2745 /uL (0-500); RBC Peritoneal Fluid 0 /uL (0-100000); Source Peritoneal Fluid Peritoneal Fluid
[2019-10-13 19:06] LABS: Hepatitis B Surface Antigen Negative (Negative)
[2019-10-13 19:24] LABS: Hepatitis B Surface Anti Res Negative
[2019-10-13 20:05] LABS: Glucose Point of Care 150 (65-105)
[2019-10-13] MEDS: ONDANSETRON INJ 4 MG/2 ML VIAL (20:13)
--- NOTE | 2019-10-13 21:00 | P.CODEBLUE_ITS ---
Code Blue Note Code Blue Note Time Arrived at Code Blue: 2057 <Emily Vines PA-C - Last Filed: 10/14/19 01:56> Initial Rhythm on Arrival: PEA <SHENG Ellis Last Filed: 10/14/19 01:56> Airway Management: Pt intubated during resuscitation <SHENG Ellis Last Filed: 10/14/19 01:56> Chest Compressions: In process on arrival to bedside <SHENG Ellis Last Filed: 10/14/19 01:56> Result of Code Blue: Pt transferred to ICU <SHENG Ellis Last Filed: 10/14/19 01:56> Cardiac Rhythm Post Code: Atrial fibrillation with rapid ventricular response to intermittent sinus rhythm and prequent PACs. <SHENG Ellis Last Filed: 10/14/19 01:56> Code Blue Summary: RN reports that the patient went into sinus bradycardia, and when they went to check on him in the room he was unresponsive with agonal breathing and pulseless. CPR was initiated in code karlos was called overhead at 2056. I responded to the room with an approximately 45 seconds to find CPR in progress. Rhythm check demonstrated PEA and CPR was resumed. During this time I intubated the patient, and a fairly large amount of creamy particulate matter was suctioned through the ET tube, consistent with aspiration. 1 milligram epinephrine was given and on next rhythm check he did have a palpable pulse. Initially he was in atrial fibrillation with rapid ventricular response however he began having runs of V-tach with the appearance of [place], and he was given 2 grams of magnesium, calcium gluconate, and a potassium rider with stabilization of his rhythm. The patient's blood pressure was in the 90 systolic, and he was transferred to the intensive care unit for further treatment. <SHENG Ellis Last Filed: 10/14/19 01:56> I was present at the bedside throughout the course of the code. I agree with the above documentation. Patient was transferred to the ICU. Physician administrative personal assistant placed femoral central line. I provided ventilator settings. Patient was initiated on pressor therapy. To patient's labs and imaging have been reviewed. <Magda Jameson, DO - Last Filed: 10/14/19 03:00>
--- NOTE | 2019-10-13 21:00 | PM.IMHP ---
H&P: HPI History of Present Illness Chief complaint: Abdominal pain. Narrative: Ángel Fung is a very pleasant 78-year-old male known to myself and the hospitalist service from several recent hospitalizations who presented to the emergency department earlier today via EMS from home with complaints of abdominal pain. His medical history significant for end-stage renal disease on peritoneal dialysis, insulin-dependent diabetes, coronary artery disease, peripheral vascular disease, hypertension, and chronic anemia. all of the following history is obtained after the patient coded, via a review of his electronic medical records as well as discussions with his and daughter. This will be his 4th admission to the hospital since September 01, 2019, at which time I admitted him with diffuse abdominal pain, suspicious for spontaneous bacterial peritonitis. Blood and peritoneal cultures were negative despite peritoneal fluid showing leukocytosis with 95% segs. presumably this was due to the fact that the patient had been taking oral antibiotics at home for couple of days prior to coming to the emergency department. He was seen in consultation on September 15 status post TURBT of a bladder tumor > 5 centimeters, pathology showing high-grade noninvasive bladder cancer. He was readmitted to the hospital on September 18 with urinary retention And hematuria, treated with CBI and discharged with a Weems catheter. Unfortunately he continues to have abdominal pain nearly every day, but has been worse over the past 3 days. According to the patient's , he has also had significant weight loss due to the patient's poor appetite and oral intake. He will take a couple of bites of food and stop eating due to severe nausea, and he frequently vomits shortly after eating even small amounts. Additionally he has a couple of loose stools a day for which he takes a half of an Imodium, but it sounds like that has been ongoing. He was also found to be in atrial fibrillation on arrival to the emergency department, however he declined having a history of such and reportedly with he was having no symptoms of AFib. A CT of the abdomen pelvis done in the emergency department today showed wall thickening of the sigmoid colon consistent with colitis, cholelithiasis and gallbladder wall thickening, a small pericardial effusion new from imaging dated 09/01/2019, and chronic moderate size right pleural effusion. He was then admitted to the hospital service for further evaluation and treatment of colitis, diffuse abdominal pain, and new onset atrial fibrillation. I received a call from the patient's nurse around 1999 with requests for antiemetics as the patient was complaining of nausea for which he was given Zofran 4 milligrams. A code blue was called overhead at 20:57 after the patient became bradycardic and was found unresponsive and pulseless. Please see code blue sheet and summary for further details. Review of Systems Review of Systems: Narrative: Unable to be obtained given patient's clinical condition as above; he is sedated and intubated. [facility] Past Medical History Medical History Anemia of chronic disease Arthritis Back pain Bladder tumor Resected 09/15/2019 Coronary artery disease With history of stent in 2008 and 2014 Diabetic peripheral neuropathy End-stage renal disease on peritoneal dialysis Managed by Dr. Lauren Glaucoma Hearing loss With bilateral hearing aids Hyperlipidemia Hypertension Hypothyroidism Insulin dependent type 2 diabetes mellitus Osteomyelitis (~05/2015) Peripheral arterial disease History of multiple bilateral lower extremity stents. Peritonitis (acute) generalized Urethral stricture Status post dilatation 09/15/2019 Surgical History Surgical History Amputation of fifth toe of right foot (~05/2015) History of colonoscopy with polypectom
--- NOTE | 2019-10-13 21:05 | WPDPROCEDUR ---
Procedures Intubation Intubation Date: 10/13/19 <SHENG Ellis Last Filed: 10/14/19 01:46> Intubation Time: 21:05 <SHENG Ellis Last Filed: 10/14/19 01:46> Consent: Procedure performed emergently <SHENG Ellis Last Filed: 10/14/19 01:46> A pre-procedural Time-Out was completed immediately before starting the procedure and confirmed: Patient Identification, Site, Procedure, Patient Position and the Availability of Requisite Equipment: Yes <SHENG Ellis Last Filed: 10/14/19 01:46> Sedative: none <SHENG Ellis Last Filed: 10/14/19 01:46> Laryngoscope: Odalys (3.0) <SHENG Ellis Last Filed: 10/14/19 01:46> ET tube size: 7.5 <SHENG Ellis Last Filed: 10/14/19 01:46> Tube secured depth (cm): 23 <SHENG Ellis Last Filed: 10/14/19 01:46> Tube secured location: teeth <SHENG Ellis Last Filed: 10/14/19 01:46> Tube placement confirmation: visualized tube passing through cords, equal breath sounds bilaterally, no breath sounds over epigastrium and confirmation by capnometry <SHENG Ellis Last Filed: 10/14/19 01:46> Patient tolerated procedure: well <SHENG Ellis Last Filed: 10/14/19 01:46> Intubation complications: none <SHENG Ellis Last Filed: 10/14/19 01:46>
--- NOTE | 2019-10-13 21:19 | ECG_ITS ---
Measurements Intervals [place] Rate: 81 P: -3 CA: 148 QRS: 33 QRSD: 96 T: 50 QT: 396 QTc: 460 Interpretive Statements SINUS RHYTHM ATRIAL COUPLET AND ATRIAL AND VENTRICULAR PREMATURE COMPLEXES NONSPECIFIC ST & T-WAVE ABNORMALITY- LATERAL LEADS BASELINE ARTIFACT- I, II, III, AVR, AVL, AVF, V1-V2 ABNORMAL ECG Electronically Signed On 10-14-2019 10:09:27 CDT by Clarence Nova D.O.
--- NOTE | 2019-10-13 21:20 | PC.NURSE ---
This patient, Ángel Fung, was transferred to ICU-6 on 10/13/19 at 2110 POST CODE BLUE.Personal belongings sent with patient. Belongings list checked and signed with receiving [ ]. Report given to MARLIN JJ[ ]. Appropriate documentation sent with patient.
--- NOTE | 2019-10-13 21:25 | PC.NURSE ---
2056 NOTED CARDIAC MONITER SHOWING BRADYCARDIA FOUND PT. UNRESPONSIVE WITH AGONAL BREATHING. NO PULSE. CODE BLUE CALLED.SEE CODE SHEET. PT. WAS TRANSFERRED TO ICU-6.
--- NOTE | 2019-10-13 21:34 | PC.NURSE ---
2129 NOTIFIED OF CODE AND TRANSFERRED TO ICU-6.
--- NOTE | 2019-10-13 21:34 | PC.NURSE ---
UNIVERSITY MANAGER EDIE NOTIFIED OF CODE AND ICU-6.
[2019-10-13] MEDS: MIDAZOLAM HCL 2 MG/2 ML VIAL IV PUSH (21:45)
--- NOTE | 2019-10-13 21:45 | WPDPROCEDUR ---
Procedures Central Line Placement Right Femoral: Central Line Date: 10/13/19 <SHENG Ellis Last Filed: 10/14/19 01:48> Central Line Time: 21:45 <SHENG Ellis Last Filed: 10/14/19 01:48> Performed Emergently - Given emergent patient condition, temporal constraints may have precluded informed consent.: Yes <SHENG Ellis Last Filed: 10/14/19 01:48> Consent: Placed emergently. <SHENG Ellis Last Filed: 10/14/19 01:48> Time Out Performed: Yes <SHENG Ellis Last Filed: 10/14/19 01:48> Patient Position: supine <SHENG Ellis Last Filed: 10/14/19 01:48> Patient placed on monitor/pulse ox: Yes <SHENG Ellis Last Filed: 10/14/19 01:48> Provider Prep: mask, sterile gown, sterile gloves, Max. sterile barrier precautions, cap, hand hygiene with conventional soap/water or alcohol based hand rub and other (Sterile probe cover used for ultrasound.) <SHENG Ellis Last Filed: 10/14/19 01:48> Central line prep: Povidone-Iodine 1% <SHENG Ellis Last Filed: 10/14/19 01:48> Local anesthesia used: lidocaine 1% <SHENG Ellis Last Filed: 10/14/19 01:48> Amount of anesthesia used (ml): 5 <SHENG Ellis Last Filed: 10/14/19 01:48> Sterile US Technique with sterile gel/sterile probe covers: Yes <SHENG Ellis Last Filed: 10/14/19 01:48> Central line lumen inserted: triple <SHENG Ellis Last Filed: 10/14/19 01:48> Armenian: 7 <SHENG Ellis Last Filed: 10/14/19 01:48> Length (cm): 20 <SHENG Ellis Last Filed: 10/14/19 01:48> Post procedure: sutured in place, good blood return, all ports aspirated, flushed, capped, tegaderm, hemostatic disc and aseptic technique maintained throughout procedure <SHENG Ellis Last Filed: 10/14/19 01:48> Post procedure x-ray: other (N/A with femoral placement. ) <SHENG Ellis Last Filed: 10/14/19 01:48> Patient tolerated procedure: well <SHENG Ellis Last Filed: 10/14/19 01:48> Complications: none <SHENG Ellis Last Filed: 10/14/19 01:48>
[2019-10-13] MEDS: NOREPINEPHRINE 8 MG/D5W 250 ML 8 MG/250 ML BAG 9.4 MG IV CONT (22:44)
[2019-10-13 22:48] LABS: Hematocrit 30.1 % (42.0-52.0); Hemoglobin 9.9 g/dL (14.0-18.0); Mean Corpuscular HGB Conc 32.9 g/dl (32-36); Mean Corpuscular Hemoglobin 31.7 pg (26-34); Mean Corpuscular Volume 96.5 fl (80-100); Platelet Count Result 575 k/mm3 (150-375); Red Blood Count 3.12 M/mm3 (4.6-6.20); Red Cell Distribution Width 14.6 % (11.5-14.5); White Blood Count 19.7 K/mm3 (4.5-10.0)
[2019-10-13 23:01] LABS: Anion Gap 14.6 mmol/L (7-16); Blood Urea Nitrogen 31 mg/dL (9-20); Carbon Dioxide 25 mmol/L (22-30); Chloride 85 mmol/L (98-107); Estimated CRCL calculation 10 ml/min; Estimated Glomerular Filt Rate 12; Glucose 227 mg/dL (75-110); Magnesium 2.2 mg/dL (1.6-2.3); Potassium 3.6 mmol/L (3.4-5.0); Sodium 121 mmol/L (137-145)
[2019-10-13 23:09] LABS: Alveolar/Arterial O2 Gradient 237.2 mmHg; Base Excess ABG -3.1 mEq/l (+/-2.0); Carboxyhemoglobin 0.1 % THb (0-2.0); Fractional Inspired Oxygen 50 %; HCO3 ABG 22.7 mEq/l (22.0-26.0); Methemoglobin ABG 0.3 %THb (0-1.5); Oxygen Content ABG 16.2 %vol (16.0-22.0); Oxygen Saturation ABG 93.1 % (95.0-100.0); Oxyhemoglobin 92.1 % THb (90.0-100.0); PCO2 ABG 43.6 mmHg (35.0-45.0); PO2 ABG 70.3 mmHg (80.0-100.0); PO2 FiO2 Ratio Arterial Blood 1.41 %; Reduced Hemoglobin 7.5 %THb (0-5.0); Total Hemoglobin 12.5 g/dL (12.0-18.0); pH ABG 7.334 (7.350-7.450)
[2019-10-13 23:10] LABS: Arterial Blood Gas PEEP 5 cmH2O; Arterial Blood Gas Tidal Volume 400 ml; Arterial Blood Gas Vent Mode CMV; Arterial Blood Gas Ventilator rate 14 /MIN; Device VENTILATOR; Site Drawn LEFT BRACHIAL
[2019-10-13 23:13] LABS: Lactic Acid Reflex 3.7 mmol/L (0.7-2.1)
[2019-10-14] VITALS (22 sets, daily range): BP systolic 94–122; BP diastolic 46–68; PULSE 61–111; RESP 10–20; TEMP 36.3–37; O2SAT 95–100; BMI 25.2
[2019-10-14] MEDS: SODIUM CHLORIDE 0.9% IV 1,000 ML 50 ML IV CONT (01:00)
[2019-10-14 01:44] LABS: Reflex Lactic Acid Yes or No Add Lactic
--- NOTE | 2019-10-14 02:29 | ECHO_ITS ---
Patient Info Name: Ángel Fung Age: 78 years : 1940 Gender: Male Ht: 64 in Wt: 147 lbs BSA: 1.75 m2 HR: 78 bpm BP: 97 / 56 mmHg Heart Rhythm: Sinus Rhythm Technical Quality: Poor Exam Date: 10/14/2019 11:10 AM Exam Location: [facility] Exam Room: icu 6 Patient Status: Inpatient Admit Date: 10/13/2019 Staff Ordering Physician: Emily Vines PA-C Vending Service Technician: Rain Hernandez RCS Attending Provider: Kvng rAizmendi MD Referring Physician: Jasmyn QUINTERO; Exam Type: CA echo dop color flow w con Study Info Indications - new onset afib Complete two-dimensional, color flow and Doppler transthoracic echocardiogram is performed with contrast to opacify the left ventricle and to improve the deliniation of the left ventricle endocardial borders. Contrast/Agitated Saline Contrast/Ag. Saline: Definity Amount: 1.00 ml Administered By: Smith Cool RN Existing IV Access: Yes IV Access Condition: patent with no signs of infiltration Reason for Poor Study: poor echocardiographic windows Summary 1. Left ventricular systolic function is normal, estimated at 60-65%. 2. There is no increased left ventricular wall thickness. 3. Left ventricular septal wall motion is abnormal with septal motion related to bundle branch block. 4. The left ventricular diastolic function is grade I diastolic dysfunction. 5. The aortic valve is trileaflet. Heavy focal calcification of the right coronary cusp with severe leaflet restriction. Mild calcification and restriction of the left cusp. Seen only in the parasternal LAX view, there is suggestion of mobile echodensity. This was previously mentioned in 2016, however, as this study is unavailable for comparison further clarification is not possible. Clinical correlation advised. Consider PAMELA if clinically indicated. 6. There is mild to moderate aortic valve stenosis with a peak velocity of 229.96 cm/s, mean gradient of 11 mmHg, and aortic valve area of 1.32 cm2. 7. There is no aortic valve regurgitation. 8. There is trace mitral valve regurgitation. 9. The mitral valve annulus is moderately calcified. 10. There is mild tricuspid valve regurgitation. 11. No pulmonary hypertension, estimated pulmonary arterial systolic pressure is 27 mmHg. Left Ventricle Left ventricular chamber dimension is normal. Left ventricular systolic function is normal, estimated at 60-65%. There is no increased left ventricular wall thickness. Left ventricular septal wall motion is abnormal with septal motion related to bundle branch block. The left ventricular diastolic function is grade I diastolic dysfunction. Right Ventricle Right ventricular chamber dimension is normal. Right ventricular systolic function is normal. Left Atria Left atrial chamber dimension is normal. Right Atria Right atrial chamber dimension is normal. Aortic Valve The aortic valve is trileaflet. Heavy focal calcification of the right coronary cusp with severe leaflet restriction. Mild calcification and restriction of the left cusp. Seen only in the parasternal LAX view, there is suggestion of mobile echodensity. This was previously mentioned in 2016, however, as this study is unavailable for comparison further clarification is not possible. Clinical correlation advised. Consider PAMELA if clinically indicated. There is mild to moderate aortic valve stenosis with a peak velocity of 229.96 cm/s, mean gradient of 11 mmHg, and aortic valve area of
[2019-10-14 04:36] LABS: Basophils Absolute Auto 0.1 K/mm3 (0.0-0.1); Basophils Percent Auto 0.2 % (0.2-1.2); Hematocrit 28.2 % (42.0-52.0); Hemoglobin 9.6 g/dL (14.0-18.0); Immature Granulocyte Absolute 0.28 K/mm3 (0.00-0.031); Lymphocytes Absolute Auto 1.03 K/mm3 (0.9-3.2); Lymphocytes Percent Auto 3.9 % (18.3-44.2); Mean Corpuscular Hemoglobin 31.6 pg (26-34); Mean Corpuscular Volume 92.8 fl (80-100); Mean Platelet Volume 8.7 fl (7.4-10.4); Monocytes Absolute Auto 1.3 K/mm3 (0.1-0.6); Monocytes Percent Auto 4.9 % (2.6-8.5); Platelet Count Result 536 k/mm3 (150-375); Red Blood Count 3.04 M/mm3 (4.6-6.20); Red Cell Distribution Width 14.2 % (11.5-14.5); White Blood Count 26.7 K/mm3 (4.5-10.0)
[2019-10-14 04:48] LABS: INR 1.5; Prothrombin Time 17.7 Seconds (11.1-14.7)
[2019-10-14 04:49] LABS: Partial Thromboplastin Time 35.3 SECONDS (22.3-36.8)
[2019-10-14 04:51] LABS: Lactic Acid 1.7 mmol/L (0.7-2.1)
[2019-10-14 04:52] LABS: Magnesium 1.9 mg/dL (1.6-2.3)
[2019-10-14 04:53] LABS: Alanine Aminotransferase 24 U/L (4-50); Albumin Level 1.8 g/dL (3.5-5.1); Alkaline Phosphatase 141 U/L (38-126); Anion Gap 13.2 mmol/L (7-16); Aspartate Amino Transferase 24 U/L (17-59); Bilirubin,Total 0.1 mg/dL (0.2-1.3); Blood Urea Nitrogen 33 mg/dL (9-20); Calcium 6.9 mg/dL (8.4-10.2); Carbon Dioxide 25 mmol/L (22-30); Chloride 86 mmol/L (98-107); Estimated CRCL calculation 10 ml/min; Estimated Glomerular Filt Rate 12; Glucose 188 mg/dL (75-110); Potassium 3.2 mmol/L (3.4-5.0); Sodium 121 mmol/L (137-145)
[2019-10-14 05:34] LABS: Alveolar/Arterial O2 Gradient 209.6 mmHg; Base Excess ABG 1.6 mEq/l (+/-2.0); Carboxyhemoglobin 0.3 % THb (0-2.0); Fractional Inspired Oxygen 50 %; HCO3 ABG 25.2 mEq/l (22.0-26.0); Methemoglobin ABG 0.2 %THb (0-1.5); Oxygen Content ABG 15.9 %vol (16.0-22.0); Oxygen Saturation ABG 98.2 % (95.0-100.0); Oxyhemoglobin 97.2 % THb (90.0-100.0); PCO2 ABG 35.9 mmHg (35.0-45.0); PO2 ABG 106.5 mmHg (80.0-100.0); PO2 FiO2 Ratio Arterial Blood 2.13 %; Reduced Hemoglobin 2.3 %THb (0-5.0); Total Hemoglobin 11.5 g/dL (12.0-18.0); pH ABG 7.464 (7.350-7.450)
[2019-10-14 05:35] LABS: Device VENTILATOR; Modified Allen's Test Pass; Site Drawn RIGHT RADIAL
[2019-10-14 05:36] LABS: Arterial Blood Gas PEEP 5 cmH2O; Arterial Blood Gas Tidal Volume 400 ml; Arterial Blood Gas Vent Mode CMV; Arterial Blood Gas Ventilator rate 14 /MIN
[2019-10-14] MEDS: metroNIDAZOLE 500 MG/ISO 100ML 500 MG/100 ML BAG 100 MG IVPB ×4 (06:00→22:49)
[2019-10-14] MEDS: FAMOTIDINE 20 MG/2 ML VIAL IV PUSH (08:58)
[2019-10-14] MEDS: SILVERGEL (ELTA) 45 ML 1 APPLIC TOPICAL (09:01)
--- NOTE | 2019-10-14 09:58 | PM.CNNEP ---
Assessment and Plan Assessment and plan (1) Peritonitis (acute) generalized: Code(s): K65.0 - Generalized (acute) peritonitis Status: Acute Assessment and Plan: the patient has peritonitis. CT scan shows no perforation. It does show colitis. He may have translocation of bacteria or endotoxin cause by the colitis. will see what the cultures show. He might have gotten antibiotics in the ER before the PD fluid cultures were drawn on the floor. will continue Fortaz in along do well daily and re-dose vancomycin as needed. We can recheck the PD cell count on Saturday long talk with demond lopez (2) Colitis: Code(s): K52.9 - Noninfective gastroenteritis and colitis, unspecified Status: Acute Assessment and Plan: this is being evaluated by Dr. Lopez Considering infection versus ischemic (3) Septic shock: Code(s): A41.9 - Sepsis, unspecified organism; R65.21 - Severe sepsis with septic shock Status: Acute Assessment and Plan: patient is hypotensive and on pressors. We will not try to get fluid off this evening. (4) Hyponatremia: Code(s): E87.1 - Hypo-osmolality and hyponatremia Status: Acute Assessment and Plan: this is chronic. Try to limit free water intake. (5) Aspiration pneumonia: Code(s): J69.0 - Pneumonitis due to inhalation of food and vomit Status: Acute Assessment and Plan: Patient had nausea and vomiting and aspirated. He is getting pulmonary toilet and supportive care. (6) Atrial fibrillation, new onset: Code(s): I48.91 - Unspecified atrial fibrillation Status: Acute Assessment and Plan: Patient has atrial fibrillation. Heart rate is well controlled (7) ESRD (end stage renal disease) on dialysis: Code(s): N18.6 - End stage renal disease; Z99.2 - Dependence on renal dialysis Status: Acute Assessment and Plan: he will get peritoneal dialysis tonight (8) Urinary tract infection: Qualifiers: Hematuria presence: with hematuria Urinary tract infection type: site unspecified Qualified Code(s): N39.0 - Urinary tract infection, site not specified; R31.9 - Hematuria, unspecified Code(s): N39.0 - Urinary tract infection, site not specified Status: Acute Assessment and Plan: urine culture pending. History of Present Illness Reason for Consult Consult date: 10/14/19 Chief Complaint Chief complaint: Abdominal pain. History of Present Illness Narrative: Ángel is a very pleasant 78-year-old gentleman who has end-stage renal disease on peritoneal dialysis, hypertension, diabetes, neuropathy, hyperlipidemia, bladder tumor resected in August of this year, coronary disease status post stents, peripheral vascular disease status post lower extremity stents, hypothyroidism. The patient has been in and out of the hospital lately. This time he came in because of abdominal pain. It was villalta abdominal. He had nausea and vomiting. When he got to the emergency room they did a CT scan which showed colitis. He was given IV antibiotics. They called Dr. Joseph who gave orders to the dialysis nurse to Check the fluid. It was found to be cloudy and so he asked her to put in some fluid with vancomycin and Fortaz. last evening around 8:30 p.m. the patient had a PE a arrest. He had had some vomiting before that and when they intubated him they found bilious material when they suction his ET tube. So it is assumed that he aspirated and that is what caused the arrest. The patient cannot give a history now. I talk with his peritoneal dialysis nurse and he is apparently meticulous. He did have a recent peritonitis episode earlier this year which was culture negative but he had been taking antibiotics at home on his own. He quit smoking many years ago. He does not drink alcohol. Review of Systems Review of Systems: ROS unobtainable: Yes
--- NOTE | 2019-10-14 10:26 | PM.EVENT ---
Event Note Event Note Event Note: Patient is on peritoneal dialysis and tolerating it well. He has antibiotics instilled currently. He was seen at 9:45 a.m.
--- NOTE | 2019-10-14 13:30 | WPDCNINT ---
Assessment and Plan Assessment and plan (1) Septic shock: Code(s): A41.9 - Sepsis, unspecified organism; R65.21 - Severe sepsis with septic shock Status: Acute Assessment and Plan: Septic shock likely due to aspiration pneumonia, colitis and positive pressure ventilation - On levophed, maintain MAP > 65 mmHg - blood and peritoneal cx pending - continue Cefepime and flagyl - (2) Cardiorespiratory arrest: Code(s): I46.9 - Cardiac arrest, cause unspecified Status: Acute Assessment and Plan: PEA arrest likely due aspiration,ROSC after 1 round of epinephrine - post arrest pt wa sfollowing commands and so did not require hypothermia protocol - trops elevated to 0.40 likely due to cardiac arrest - will trend troponin (3) Aspiration pneumonia: Code(s): J69.0 - Pneumonitis due to inhalation of food and vomit Status: Acute Assessment and Plan: worsening chest x-ray likely related to aspiration pneumonia /pneumonitis - continue antibiotics as above - patient on mechanical ventilation, peep of 5, 50% FiO2, ABGs adequate, will wean FiO2 as tolerated - sedated with fentanyl and Versed, maintain RASS of 0 to -2, daily sedation vacation (4) Colitis: Code(s): K52.9 - Noninfective gastroenteritis and colitis, unspecified Status: Acute Assessment and Plan: patient presented with abdominal pain, nausea, vomiting and diarrhea, CT scan of the abdomen and pelvis showed sigmoid colon wall thickening is consistent with colitis - continue antibiotics as above - bowel rest (5) ESRD (end stage renal disease) on dialysis: Code(s): N18.6 - End stage renal disease; Z99.2 - Dependence on renal dialysis Status: Acute Assessment and Plan: patient with end-stage renal disease on peritoneal dialysis - peritoneal fluid did not show any Gram stain - discussed with Nephrology, will start peritoneal dialysis today (6) DVT prophylaxis: Code(s): Z29.9 - Encounter for prophylactic measures, unspecified Status: Acute Assessment and Plan: DVT prophylaxis: SCDs, will add heparin SQ stress ulcer prophylaxis: Protonix Additional Plan discussed with and updated her with patient's condition and plan of care. I answered all questions, I also discussed code status with her, she requested patient be a full code code status: Full code critical care time spent: 49 minutes Due to a high probability of clinically significant, life threatening deterioration, the patient required my highest level of preparedness to intervene emergently and I personally spent this critical care time directly and personally managing the patient. This critical care time included obtaining a history; examining the patient; pulse oximetry; ordering and review of studies; arranging urgent treatment with development of a management plan; evaluation of patient's response to treatment; frequent reassessment; and discussions with other providers. It was exclusive of separately billable procedures and treating other patients and teaching time. Please see Assessment and Plan section and the rest of the note for further information on patient assessment and treatment Cable Machine Operator Consult Note Consult date: 10/14/19 Time Seen: 07:04 Reason for consult: acute respiratory failure, acute colitis, aspiration, cardiac arrest HPI: Ángel Fung is a 78 year old male significant past medical history of coronary artery disease with stents in 2008 and 2014, diabetic he is with peripheral neuropathy, end-stage renal disease on peritoneal dialysis, history of bladder tumor status post resection in August 2019, anemia of chronic disease, history of peripheral arterial disease with multiple bilateral lower extremity stents, hypothyroidism, hyperlipidemia presented to the ED on 10/13/2019 complains of abdominal pain and to 3 days. Abdominal pain according to the records has been diffuse, constant. A
[2019-10-14] MEDS: DEXTROSE 5%/0.9% SOD CHL 1,000 ML 50 ML IV CONT (13:35)
[2019-10-14 13:56] LABS: Glucose Point of Care 143 (65-105)
--- NOTE | 2019-10-14 14:17 | PM.PNGS ---
Progress Note: A&P Assessment and Plan (1) Peritonitis (acute) generalized: Code(s): K65.0 - Generalized (acute) peritonitis <Paulina Quintanilla MAMMAL CONTROL AGENT - Last Filed: 10/14/19 15:30> Status: Acute <BACILIO Mcghee - Last Filed: 10/14/19 15:30> Assessment and Plan: Patient with peritonitis. Peritoneal fluid sent for culture and smear. Smear shows reactive mesothelial cells and acute inflammation. Gram stain showed many WBC, no organisms. Cultures pending. May be related to peritoneal dialysis. Nephrology has been consulted and their recommendations are noted. He is receiving Fortaz through his peritoneal catheter for treatment. Continue broad-spectrum IV antibiotics and monitor labs. <Paulina Quintanilla MAMMAL CONTROL AGENT - Last Filed: 10/14/19 15:30> (2) Cardiorespiratory arrest: Code(s): I46.9 - Cardiac arrest, cause unspecified <Paulina Quintanilla MAMMAL CONTROL AGENT - Last Filed: 10/14/19 15:30> Status: Acute <Paulina Quintanilla MAMMAL CONTROL AGENT - Last Filed: 10/14/19 15:30> Assessment and Plan: Cardiorespiratory arrest last night. [place] to possibly be due to aspiration. Patient now intubated and sedated in the ICU. Management and wean vent per Phlebotomist. <Paulina Quintanilla MAMMAL CONTROL AGENT - Last Filed: 10/14/19 15:30> (3) Septic shock: Code(s): A41.9 - Sepsis, unspecified organism; R65.21 - Severe sepsis with septic shock <Paulina Quintanilla MAMMAL CONTROL AGENT - Last Filed: 10/14/19 15:30> Status: Acute <Paulina Quintanilla MAMMAL CONTROL AGENT - Last Filed: 10/14/19 15:30> Assessment and Plan: Likely secondary to aspiration pneumonia vs. colitis vs. peritonitis. Currently requiring vasopressor support. Blood cultures NGTD. Continue broad-spectrum IV abx. Management per Phlebotomist and primary service. <Paulina Quintanilla MAMMAL CONTROL AGENT - Last Filed: 10/14/19 15:30> (4) Aspiration pneumonia: Code(s): J69.0 - Pneumonitis due to inhalation of food and vomit <KATHIA McgheeP - Last Filed: 10/14/19 15:30> Status: Acute <BACILIO Mcghee - Last Filed: 10/14/19 15:30> Assessment and Plan: Continue IV antibiotics per primary service. <KATHIA McgheeP - Last Filed: 10/14/19 15:30> (5) Colitis: Code(s): K52.9 - Noninfective gastroenteritis and colitis, unspecified <KATHIA McgheeP - Last Filed: 10/14/19 15:30> Status: Acute <KATHIA McgheeP - Last Filed: 10/14/19 15:30> Assessment and Plan: Sigmoid colitis found on CT scan and ultrasound. Possibility of sigmoid diverticulitis. No evidence of perforation on imaging. Continue IV antibiotics and bowel rest. Currently NPO, intubated, and sedated. <KATHIA McgheeP - Last Filed: 10/14/19 15:30> (6) Cholelithiasis: Code(s): K80.20 - Calculus of gallbladder without cholecystitis without obstruction <KATHIA McgheeP - Last Filed: 10/14/19 15:30> Status: Acute <KATHIA McgheeP - Last Filed: 10/14/19 15:30> Assessment and Plan: Cholelithiasis noted on CT and ultrasound. No evidence of acute cholecystitis. We do not believe this is the cause of his abdominal pain or leukocytosis. No indication for surgical intervention at this time. <BACILIO Mcghee - Last Filed: 10/14/19 15:30> (7) Atrial fibrillation, new onset: Code(s): I48.91 - Unspecified atrial fibrillation <BACILIO Mcghee - Last Filed: 10/14/19 15:30> Status: Acute <KATHIA McgheeP - Last Filed: 10/14/19 15:30> Assessment and Plan: New onset a. fib in the ER. Cardiac arrest overnight and was apparently in a. fib RVR at some point. Now currently in sinus rhythm. Could consider Cardiology consult. Management per primary service. <BACILIO Mcghee - Last Filed: 10/14/19 15:30> (8) Urinary tract infection: Qualifiers: Hematuria presence: with hematuria Urinary tract infection type: site unspecified Qualified Co
--- NOTE | 2019-10-14 14:40 | PM.IMPN ---
Progress Note: A&P Assessment and Plan (1) Cardiorespiratory arrest: Code(s): I46.9 - Cardiac arrest, cause unspecified Status: Acute Assessment and Plan: Precipitating etiology not clear, but suspect probable aspiration plus/minus dysrhythmia given torsades post code. Return of spontaneous circulation within about 5 minutes. Patient alert and following commands. No indication for hypothermia protocol. Vent management per fuselage framer. 10/14/19 14:40 patient is 78-year-old male with history of end-stage renal disease on peritoneal dialysis presented emergency department had a cardiac arrest ROSC after 1 round of epinephrine per protocol was called with shortness of breath was hypoxic patient was intubated currently on vent, patient may have aspirated pneumonia, patient in septic shock and on pressor, patient being treated with Levaquin, vancomycin and Flagyl, discussed with fuselage framer prognosis is poor we appreciate fuselage framer, patient is seen by Dr. Aguilar nephrology for peritoneal dialysis (2) Aspiration pneumonia: Code(s): J69.0 - Pneumonitis due to inhalation of food and vomit Status: Acute Assessment and Plan: Started on Cipro and Flagyl emergency department, but given evidence of cardiac arrhythmia he has been changed to cefepime. (3) Atrial fibrillation: Code(s): I48.91 - Unspecified atrial fibrillation Status: Acute Assessment and Plan: New onset atrial fibrillation; check echocardiogram and TSH. No anticoagulation at this time in case he needs surgical intervention. (4) Hyponatremia: Code(s): E87.1 - Hypo-osmolality and hyponatremia Status: Acute Assessment and Plan: His sodium has been decreasing over the past month, likely due to dehydration given poor oral intake. Cautious IV fluid rehydration with normal saline with frequent monitoring of sodium. (5) Abnormal computed tomography of abdomen and pelvis: Code(s): R93.5 - Abnormal findings on diagnostic imaging of other abdominal regions, including retroperitoneum Status: Acute Assessment and Plan: CT shows wall thickening of the sigmoid colon, consistent with colitis as well as cholelithiasis and gallbladder wall thickening. He has been evaluated by surgery, and they do not feel his symptoms are consistent with cholecystitis. He has been started on Flagyl for the colitis and we will obtain stool studies. I am wondering if we should do a HIDA scan to definitively rule out cholecystitis given continued symptoms, although certainly not a textbook presentation. (6) Septic shock: Code(s): A41.9 - Sepsis, unspecified organism; R65.21 - Severe sepsis with septic shock Status: Acute Subjective Date/time seen: 10/14/19 14:40 patient is 78-year-old male with history of end-stage renal disease on peritoneal dialysis presented emergency department had a cardiac arrest ROSC after 1 round of epinephrine per protocol was called with shortness of breath was hypoxic patient was intubated currently on vent, patient may have aspirated pneumonia, patient in septic shock and on pressor, patient being treated with Levaquin, vancomycin and Flagyl, discussed with fuselage framer prognosis is poor we appreciate fuselage framer, patient is seen by Dr. Aguilar nephrology for peritoneal dialysis Review of Systems Review of Systems: ROS unobtainable: Yes unobtainable due to endotracheal tube Exam Narrative: Exam Narrative: patient on vent and sedated Const: General: comfortable and no acute distress HENMT: Other: ET tube in place Eyes: General: appearance normal, both eyes and all related structures Sclera: sclerae normal Neck: Other: no r
[2019-10-14 15:14] LABS: Sodium Urine Random 108 meq/L
[2019-10-14] MEDS: polyethylene glycoL 3350 17 GM POWD.PACK FEED TUBE (17:44)
[2019-10-14] MEDS: BISACODYL 10 MG SUPPOSITORY RECTAL (17:44)
[2019-10-14 18:16] LABS: Glucose Point of Care 123 (65-105)
[2019-10-14] MEDS: NOREPINEPHRINE 8 MG/D5W 250 ML 8 MG/250 ML BAG 1.9 MG IV CONT (19:28)
[2019-10-14] MEDS: HEPARIN SODIUM 5,000 UNITS/ML VIAL 5000 UNITS SUB-Q (22:49)
[2019-10-15] VITALS (28 sets, daily range): BP systolic 74–138; BP diastolic 47–76; PULSE 61–90; RESP 14–16; TEMP 35–36.9; O2SAT 97–100
[2019-10-15 00:10] LABS: Glucose Point of Care 136 (65-105)
[2019-10-15 04:56] LABS: Alveolar/Arterial O2 Gradient 88.3 mmHg; Base Excess ABG 0.7 mEq/l (+/-2.0); Carboxyhemoglobin 0.3 % THb (0-2.0); Fractional Inspired Oxygen 30 %; HCO3 ABG 23.8 mEq/l (22.0-26.0); Methemoglobin ABG 0.3 %THb (0-1.5); Oxygen Saturation ABG 97.2 % (95.0-100.0); Oxyhemoglobin 95.3 % THb (90.0-100.0); PCO2 ABG 32.8 mmHg (35.0-45.0); PO2 ABG 87.1 mmHg (80.0-100.0); Reduced Hemoglobin 4.1 %THb (0-5.0); Total Hemoglobin 11.1 g/dL (12.0-18.0); pH ABG 7.478 (7.350-7.450)
[2019-10-15 04:58] LABS: Device VENTILATOR; Modified Allen's Test Pass; Site Drawn RIGHT RADIAL
[2019-10-15 05:00] LABS: Arterial Blood Gas PEEP 5 cmH2O; Arterial Blood Gas Tidal Volume 400 ml; Arterial Blood Gas Vent Mode CMV; Arterial Blood Gas Ventilator rate 14 /MIN
[2019-10-15] MEDS: metroNIDAZOLE 500 MG/ISO 100ML 500 MG/100 ML BAG 100 MG IVPB ×3 (05:05→17:58)
[2019-10-15] MEDS: HEPARIN SODIUM 5,000 UNITS/ML VIAL 5000 UNITS SUB-Q ×3 (05:07→20:44)
[2019-10-15 05:51] LABS: Hematocrit 28.4 % (42.0-52.0); Hemoglobin 9.8 g/dL (14.0-18.0); Mean Corpuscular HGB Conc 34.5 g/dl (32-36); Mean Corpuscular Hemoglobin 31.1 pg (26-34); Mean Corpuscular Volume 90.2 fl (80-100); Mean Platelet Volume 8.5 fl (7.4-10.4); Platelet Count Result 490 k/mm3 (150-375); Red Blood Count 3.15 M/mm3 (4.6-6.20); Red Cell Distribution Width 14.4 % (11.5-14.5); White Blood Count 21.1 K/mm3 (4.5-10.0)
[2019-10-15 06:05] LABS: Alanine Aminotransferase 18 U/L (4-50); Albumin Level 1.8 g/dL (3.5-5.1); Alkaline Phosphatase 123 U/L (38-126); Anion Gap 12.3 mmol/L (7-16); Aspartate Amino Transferase 20 U/L (17-59); Bilirubin,Total < 0.1 mg/dL (0.2-1.3); Blood Urea Nitrogen 32 mg/dL (9-20); Calcium 7.2 mg/dL (8.4-10.2); Carbon Dioxide 24 mmol/L (22-30); Chloride 89 mmol/L (98-107); Estimated CRCL calculation 10 ml/min; Estimated Glomerular Filt Rate 12; Glucose 193 mg/dL (75-110); Magnesium 1.8 mg/dL (1.6-2.3); Phosphorus 3.8 mg/dL (2.5-4.5); Potassium 3.3 mmol/L (3.4-5.0); Sodium 122 mmol/L (137-145)
[2019-10-15] MEDS: DEXTROSE 5%/0.9% SOD CHL 1,000 ML 50 ML IV CONT (06:07)
[2019-10-15 06:12] LABS: Lactic Acid 2.1 mmol/L (0.7-2.1); Prealbumin 5.3 mg/dL (17.6-36.0)
[2019-10-15 06:44] LABS: IFOB Positive Control Positive; Immunochemical Fecal Occult Bl Positive (N)
[2019-10-15] MEDS: SILVERGEL (ELTA) 45 ML 1 APPLIC TOPICAL (08:56)
--- NOTE | 2019-10-15 10:00 | PM.PNNEP ---
Progress Note: A&P Assessment and Plan (1) Peritonitis (acute) generalized: Code(s): K65.0 - Generalized (acute) peritonitis Status: Acute Assessment and Plan: the patient has peritonitis. CT scan shows no perforation. It does show colitis. He may have translocation of bacteria or endotoxin cause by the colitis. will see what the cultures show. He might have gotten antibiotics in the ER before the PD fluid cultures were drawn on the floor. His cultures are negative so far ( however he received some antibiotics in the emergency room ). 2745 wbcs in fluid will continue Fortaz in along do well daily and re-dose vancomycin on saturday if needed We can recheck the PD cell count on Saturday (2) Colitis: Code(s): K52.9 - Noninfective gastroenteritis and colitis, unspecified Status: Acute Assessment and Plan: this is being evaluated by Dr. Lopez Considering infection versus ischemic (3) Septic shock: Code(s): A41.9 - Sepsis, unspecified organism; R65.21 - Severe sepsis with septic shock Status: Acute Assessment and Plan: patient is hypotensive and on pressors. very little fluid was removed last night. His pressor requirements are lower. Only 1 saman of norepi is on board currently. His blood cultures are negative so far. (4) Hyponatremia: Code(s): E87.1 - Hypo-osmolality and hyponatremia Status: Acute Assessment and Plan: this is chronic. Try to limit free water intake. sodium is low but stable. (5) Aspiration pneumonia: Code(s): J69.0 - Pneumonitis due to inhalation of food and vomit Status: Acute Assessment and Plan: Patient had nausea and vomiting and aspirated. He is getting pulmonary toilet and supportive care. (6) Atrial fibrillation, new onset: Code(s): I48.91 - Unspecified atrial fibrillation Status: Acute Assessment and Plan: Patient has atrial fibrillation. Heart rate is well controlled In the 60s. (7) ESRD (end stage renal disease) on dialysis: Code(s): N18.6 - End stage renal disease; Z99.2 - Dependence on renal dialysis Status: Acute Assessment and Plan: he will get peritoneal dialysis tonight . Will Use 1.5% Dianeal tonight so we do not remove much fluid. (8) Urinary tract infection: Qualifiers: Hematuria presence: with hematuria Urinary tract infection type: site unspecified Qualified Code(s): N39.0 - Urinary tract infection, site not specified; R31.9 - Hematuria, unspecified Code(s): N39.0 - Urinary tract infection, site not specified Status: Acute Assessment and Plan: urine culture pending. Subjective Date/time seen: 10/15/19 10:00 Interval history: Patient is sedated and on the ventilator. He winces when I pushed on his belly. Review of Systems Review of Systems: ROS unobtainable: Yes unobtainable due to endotracheal tube Exam Narrative: Exam Narrative: Exam Narrative: Well developed well-nourished gentleman lying in the ICU bed on the ventilator. He is sedated. Skin is warm and dry without rash Head normocephalic atraumatic Lungs symmetric and clear to auscultation and percussion Heart irregular rate and rhythm without rub or gallop Abdomen bowel sounds absent. Somewhat firm. Mildly tender. no HSM, masses, or bruits. Extremities no cyanosis, clubbing, or edema Objective Data Vital Signs Vital Signs: Vital Signs - 24 hr 10/14/19 11:25 10/14/19 12:00 10/14/19 13:50 Temperature 36.3 C L Pulse Rate 63 65 68 Respiratory Rate 14 Blood Pressure 110/53 L Pulse Oximetry 100 98 98 10/14/19 14:00 10/14/19 16:00 10/14/19 17:35 Temperature 36.4 C L Pulse Rate 62 63 67 Respiratory Rate 14 14 Blood Pressure 94/50 L 111/56 L Pulse Oximetry 98 99 98 10/14/19 18:00 10/14/19 19:28 10/14/19 19:50 Temperature Pulse Rate 65 65 68 Respiratory Rate
[2019-10-15] MEDS: PANTOPRAZOLE SODIUM IV 40 MG VIAL IV PUSH ×2 (10:46→20:44)
--- NOTE | 2019-10-15 11:27 | PCDIET ---
ICU Rounding Note: Patient remains NPO. MD plans to give patient another day of bowel rest with plan to start PN at half of goal rate today. Recommend Clinimix 5/15 at 40mL/hr with 250mL 20% lipids daily for total of 1182kcal and 48g protein. Recommend electrolyte replacement, as medically appropriate (K+ currently low and patient at risk of refeeding syndrome). Last recorded weight is 73.7kg which is increased from last review. +I/O - although reported 2L fluid taken off with PD overnight. Bowel Motility: No BM yet. RN reports hypoactive bowel sounds with soft, slightly distended abdomen. Labs Reviewed: Hgb (9.8), Hct (28.4), BUN (32), Cr (4.7), K (3.3), Na (122), Alb (1.8), Prealb (5.3), Ade Ca (8.96) Meds Noted: Cefepime, Fentanyl, Ceftazidime, Flagyl, Protonix, Versed, Miralax, D5NS at 50mL/hr Additional Notes: Reported toe ulcer. Following daily in ICU rounds. Assessing/reassessing every Saturday/Saturday.
[2019-10-15 12:03] LABS: Glucose Point of Care 269 (65-105)
--- NOTE | 2019-10-15 12:52 | PM.IMPN ---
Progress Note: A&P Assessment and Plan (1) Septic shock: Code(s): A41.9 - Sepsis, unspecified organism; R65.21 - Severe sepsis with septic shock Status: Acute Assessment and Plan: patient is 78-year-old male with history of end-stage renal disease on peritoneal dialysis presented emergency department had a cardiac arrest ROSC after 1 round of epinephrine per protocol ROSC, with shortness of breath and hypoxic patient was intubated currently on vent, patient may have aspirated pneumonia, patient in septic shock and on pressor, patient being treated with Levaquin, vancomycin and Flagyl, discussed with telegraph office route aide prognosis is poor we appreciate telegraph office route aide, patient is seen by Dr. Aguilar nephrology for peritoneal dialysis, Slide Forming Machine Tender again spoke with patient's , she would like to keep full code and continue to treat the patient. (2) Cardiorespiratory arrest: Code(s): I46.9 - Cardiac arrest, cause unspecified Status: Acute Assessment and Plan: after 1 round of epinephrine per protocol ROSC, (3) Aspiration pneumonia: Code(s): J69.0 - Pneumonitis due to inhalation of food and vomit Status: Acute Assessment and Plan: during suction bile was seen most likely patient had aspirated resulting in pneumonia (4) Atrial fibrillation: Code(s): I48.91 - Unspecified atrial fibrillation Status: Acute (5) Hyponatremia: Code(s): E87.1 - Hypo-osmolality and hyponatremia Status: Acute Assessment and Plan: rate is controlled (6) Abnormal computed tomography of abdomen and pelvis: Code(s): R93.5 - Abnormal findings on diagnostic imaging of other abdominal regions, including retroperitoneum Status: Acute Assessment and Plan: suspect peritonitis (7) Peritonitis (acute) generalized: Code(s): K65.0 - Generalized (acute) peritonitis Status: Acute Assessment and Plan: patient on peritoneal dialysis,patient is being treated with antibiotics Subjective Date/time seen: patient is 78-year-old male with history of end-stage renal disease on peritoneal dialysis presented emergency department had a cardiac arrest ROSC after 1 round of epinephrine per protocol ROSC, with shortness of breath and hypoxic patient was intubated currently on vent, patient may have aspirated pneumonia, patient in septic shock and on pressor, patient being treated with Levaquin, vancomycin and Flagyl, discussed with telegraph office route aide prognosis is poor we appreciate telegraph office route aide, patient is seen by Dr. Aguilar nephrology for peritoneal dialysis, Slide Forming Machine Tender again spoke with patient's , she would like to keep full code and continue to treat the patient. Review of Systems Review of Systems: ROS unobtainable: Yes unobtainable due to endotracheal tube Exam Narrative: Exam Narrative: patient on vent and sedated Const: General: comfortable and no acute distress HENMT: Other: ET tube in place Eyes: General: appearance normal, both eyes and all related structures Sclera: sclerae normal Neck: Other: no retraction Resp: Other: bilateral poor air entry with rhonchi Cardio: Rate: regular rate Rhythm: regular rhythm GI: Auscultation: normal bowel sounds Skin: General skin exam: normal color Neuro: Other: vent and sedated Extrem: General: normal to inspection Psych: Other: on vent and sedated Objective Data Vital Signs Vital Signs: Vital Signs - 24 hr 10/14/19 13:50 10/14/19 14:00 10/14/19 16:00 Temperature 97.5 F L Pulse Rate 68 62 63 Respiratory Rate 14 14 Blood Pressure 94/50 L 111/56 L Pulse Oximetry 98 98 99 10/14/19 17:35 10/14/19 18:00 10/14/19 19:28 Temperature Pulse Rate 67 65 65 Respiratory Rate 14 Blood Pressure 96/53 L 97/54 L Pulse Oximetry 98 98 10/14/19 19:50 10/14/19 20:00 10/14/19 21:57 Temperature 98.2 F 98.2 F Pulse Rate 68 61 61 Respiratory Rate 14 14 Blood Pressure 96/55 L
--- NOTE | 2019-10-15 13:04 | WPDINTPN ---
Progress Note: A&P Assessment and Plan (1) Septic shock: Code(s): A41.9 - Sepsis, unspecified organism; R65.21 - Severe sepsis with septic shock Status: Acute Assessment and Plan: Septic shock likely due to aspiration pneumonia, colitis and positive pressure ventilation - On levophed, maintain MAP > 65 mmHg - blood, urine and peritoneal cx are negative - continue Cefepime and flagyl - patienton intraperitoneal ceftazidime (2) Cardiorespiratory arrest: Code(s): I46.9 - Cardiac arrest, cause unspecified Status: Acute Assessment and Plan: PEA arrest likely due aspiration,ROSC after 1 round of epinephrine - post arrest pt wa sfollowing commands and so did not require hypothermia protocol - trops elevated to 0.40 likely due to cardiac arrest (3) Aspiration pneumonia: Code(s): J69.0 - Pneumonitis due to inhalation of food and vomit Status: Acute Assessment and Plan: worsening chest x-ray likely related to aspiration pneumonia /pneumonitis - continue antibiotics as above - patient on mechanical ventilation, peep of 5, 30% FiO2, ABGs adequate, will wean FiO2 as tolerated - sedated with fentanyl and Versed, maintain RASS of 0 to -2, daily sedation vacation (4) Colitis: Code(s): K52.9 - Noninfective gastroenteritis and colitis, unspecified Status: Acute Assessment and Plan: patient presented with abdominal pain, nausea, vomiting and diarrhea, CT scan of the abdomen and pelvis showed sigmoid colon wall thickening is consistent with colitis - continue antibiotics as above - bowel rest - will start TPN today, (5) ESRD (end stage renal disease) on dialysis: Code(s): N18.6 - End stage renal disease; Z99.2 - Dependence on renal dialysis Status: Acute Assessment and Plan: patient with end-stage renal disease on peritoneal dialysis - peritoneal fluid cultures negative so far - discussed with Nephrology, peritoneal dialysis per Nephrology (6) DVT prophylaxis: Code(s): Z29.9 - Encounter for prophylactic measures, unspecified Status: Acute Assessment and Plan: DVT prophylaxis: SCDs, heparin SQ stress ulcer prophylaxis: Protonix Additional Plan discussed with and updated her with patient's condition and plan of care. I answered all questions, I also discussed code status with her, she requested patient be a full code code status: Full code critical care time spent: 37 minutes Due to a high probability of clinically significant, life threatening deterioration, the patient required my highest level of preparedness to intervene emergently and I personally spent this critical care time directly and personally managing the patient. This critical care time included obtaining a history; examining the patient; pulse oximetry; ordering and review of studies; arranging urgent treatment with development of a management plan; evaluation of patient's response to treatment; frequent reassessment; and discussions with other providers. It was exclusive of separately billable procedures and treating other patients and teaching time. Please see Assessment and Plan section and the rest of the note for further information on patient assessment and treatment Subjective Date/time seen: 10/15/19 13:04 Interval history: Reason for consult: acute respiratory failure, acute colitis, aspiration, cardiac arrest patient seen and examined this morning. Remains intubated on mechanical ventilation, 30% FiO2, peep of 5. leukocytosis is improving, patient did get his peritoneal dialysis last night into this morning. Weems catheter was inserted with minimal urine output. Patient is on Levophed at 1 mcg/minute, Versed 1 mg/hour, fentanyl 50 mcg/hour. Patient is hypothermic, placed on A Meño Hugger. Patient does not open his eyes or follow simple commands Review of Systems Review of Systems: ROS unobtainable: Yes unobtainable due to endo
[2019-10-15 14:07] LABS: Basophils Absolute Auto 0.1 K/mm3 (0.0-0.1); Basophils Percent Auto 0.3 % (0.2-1.2); Eosinophils Absolute Auto 0.1 K/mm3 (0-0.3); Eosinophils Percent Auto 0.5 % (0-4.4); Hematocrit 27.6 % (42.0-52.0); Hemoglobin 9.3 g/dL (14.0-18.0); Immature Granulocyte Absolute 0.55 K/mm3 (0.00-0.031); Immature Granulocyte Percent A 2.8 % (0-0.5); Lymphocytes Absolute Auto 1.13 K/mm3 (0.9-3.2); Lymphocytes Percent Auto 5.8 % (18.3-44.2); Mean Corpuscular HGB Conc 33.7 g/dl (32-36); Mean Platelet Volume 8.7 fl (7.4-10.4); Monocytes Absolute Auto 0.7 K/mm3 (0.1-0.6); Monocytes Percent Auto 3.7 % (2.6-8.5); Neutrophils Absolute Auto 16.8 K/mm3 (1.3-6.7); Neutrophils Percent Auto 86.9 % (45.5-73.1); Platelet Count Result 490 k/mm3 (150-375); Red Cell Distribution Width 14.6 % (11.5-14.5); White Blood Count 19.4 K/mm3 (4.5-10.0)
[2019-10-15 14:17] LABS: Partial Thromboplastin Time 41.6 SECONDS (22.3-36.8)
[2019-10-15 14:19] LABS: Alanine Aminotransferase 16 U/L (4-50); Albumin Level 1.7 g/dL (3.5-5.1); Alkaline Phosphatase 109 U/L (38-126); Anion Gap 11.9 mmol/L (7-16); Aspartate Amino Transferase 19 U/L (17-59); Bilirubin,Total < 0.1 mg/dL (0.2-1.3); Blood Urea Nitrogen 30 mg/dL (9-20); Calcium 7.1 mg/dL (8.4-10.2); Carbon Dioxide 24 mmol/L (22-30); Chloride 90 mmol/L (98-107); Estimated CRCL calculation 11 ml/min; Estimated Glomerular Filt Rate 13; Glucose 212 mg/dL (75-110); Magnesium 1.7 mg/dL (1.6-2.3); Potassium 2.9 mmol/L (3.4-5.0); Sodium 123 mmol/L (137-145)
[2019-10-15] MEDS: FAT EMULSIONS IV 20% 250 ML 20.8 ML IVPB (14:37)
[2019-10-15 15:21] LABS: Transferrin < 80 mg/dL (206-381)
[2019-10-15] MEDS: POTASSIUM CHLORIDE 20 MEQ PACKET (FOR LIQUID) PO (16:13)
--- NOTE | 2019-10-15 17:25 | PM.PNGS ---
Progress Note: A&P Assessment and Plan (1) Peritonitis (acute) generalized: Code(s): K65.0 - Generalized (acute) peritonitis Status: Acute Assessment and Plan: Patient with peritonitis. Peritoneal fluid sent for culture and smear. Smear shows reactive mesothelial cells and acute inflammation. Gram stain showed many WBC, no organisms. Cultures pending. May be related to peritoneal dialysis. Nephrology has been consulted and their recommendations are noted. He is receiving Fortaz through his peritoneal catheter for treatment. Continue broad-spectrum IV antibiotics and monitor labs. Since it appears this most likely peritonitis related to his peritoneal dialysis most likely general surgery will sign off tomorrow but I will discuss this with Dr. Ovalles before doing so. (2) Cardiorespiratory arrest: Code(s): I46.9 - Cardiac arrest, cause unspecified Status: Acute Assessment and Plan: Cardiorespiratory arrest last night. [place] to possibly be due to aspiration. Patient now intubated and sedated in the ICU. Management and wean vent per External Grinder. (3) Septic shock: Code(s): A41.9 - Sepsis, unspecified organism; R65.21 - Severe sepsis with septic shock Status: Acute Assessment and Plan: Likely secondary to aspiration pneumonia vs. colitis vs. peritonitis. Currently requiring vasopressor support. Blood cultures NGTD. Continue broad-spectrum IV abx. Management per External Grinder and primary service. (4) Aspiration pneumonia: Code(s): J69.0 - Pneumonitis due to inhalation of food and vomit Status: Acute Assessment and Plan: Continue IV antibiotics per primary service. (5) Colitis: Code(s): K52.9 - Noninfective gastroenteritis and colitis, unspecified Status: Acute Assessment and Plan: Sigmoid colitis found on CT scan and ultrasound. Possibility of sigmoid diverticulitis. No evidence of perforation on imaging. Continue IV antibiotics and bowel rest. Currently NPO, intubated, and sedated. (6) Cholelithiasis: Code(s): K80.20 - Calculus of gallbladder without cholecystitis without obstruction Status: Acute Assessment and Plan: Cholelithiasis noted on CT and ultrasound. No evidence of acute cholecystitis. We do not believe this is the cause of his abdominal pain or leukocytosis. No indication for surgical intervention at this time. (7) Atrial fibrillation, new onset: Code(s): I48.91 - Unspecified atrial fibrillation Status: Acute Assessment and Plan: New onset a. fib in the ER. Cardiac arrest overnight and was apparently in a. fib RVR at some point. Now currently in sinus rhythm. Could consider Cardiology consult. Management per primary service. (8) Urinary tract infection: Qualifiers: Hematuria presence: with hematuria Urinary tract infection type: site unspecified Qualified Code(s): N39.0 - Urinary tract infection, site not specified; R31.9 - Hematuria, unspecified Code(s): N39.0 - Urinary tract infection, site not specified Status: Acute Assessment and Plan: Urine culture pending. Continue IV antibiotics. Management per Hospitalist service. (9) Antiplatelet or antithrombotic long-term use: Code(s): Z79.02 - intermediate (current) use of antithrombotics/antiplatelets Status: Acute Assessment and Plan: Continue to hold Plavix for now. (10) Chronic hyponatremia: Code(s): E87.1 - Hypo-osmolality and hyponatremia Status: Acute (11) History of bladder cancer: Code(s): Z85.51 - Personal history of malignant neoplasm of bladder Status: Acute Assessment and Plan: S/p transurethral resection on 09/15/19. 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
[2019-10-15 17:56] LABS: Glucose Point of Care 218 (65-105)
[2019-10-16] VITALS (29 sets, daily range): BP systolic 95–146; BP diastolic 46–97; PULSE 74–128; RESP 14–28; TEMP 36.3–37.2; O2SAT 94–100
[2019-10-16] MEDS: metroNIDAZOLE 500 MG/ISO 100ML 500 MG/100 ML BAG 100 MG IVPB ×3 (00:35→17:51)
[2019-10-16 00:41] LABS: Glucose Point of Care 279 (65-105)
[2019-10-16 04:24] LABS: Alveolar/Arterial O2 Gradient 92.9 mmHg; Base Excess ABG -1.5 mEq/l (+/-2.0); Carboxyhemoglobin 0.2 % THb (0-2.0); Device VENTILATOR; Fractional Inspired Oxygen 30 %; HCO3 ABG 22.4 mEq/l (22.0-26.0); Methemoglobin ABG 0.3 %THb (0-1.5); Modified Allen's Test Pass; Oxygen Content ABG 13.2 %vol (16.0-22.0); Oxygen Saturation ABG 96.3 % (95.0-100.0); Oxyhemoglobin 94.7 % THb (90.0-100.0); PCO2 ABG 34.4 mmHg (35.0-45.0); PO2 ABG 80.6 mmHg (80.0-100.0); PO2 FiO2 Ratio Arterial Blood 2.69 %; Reduced Hemoglobin 4.8 %THb (0-5.0); Site Drawn RIGHT RADIAL; Total Hemoglobin 9.8 g/dL (12.0-18.0); pH ABG 7.432 (7.350-7.450)
[2019-10-16 04:25] LABS: Arterial Blood Gas PEEP 5 cmH2O; Arterial Blood Gas Tidal Volume 400 ml; Arterial Blood Gas Vent Mode CMV; Arterial Blood Gas Ventilator rate 14 /MIN
[2019-10-16] MEDS: HEPARIN SODIUM 5,000 UNITS/ML VIAL 5000 UNITS SUB-Q ×3 (05:58→22:08)
[2019-10-16 06:21] LABS: Hematocrit 25.5 % (42.0-52.0); Hemoglobin 8.5 g/dL (14.0-18.0); Mean Corpuscular HGB Conc 33.3 g/dl (32-36); Mean Corpuscular Hemoglobin 31.1 pg (26-34); Mean Corpuscular Volume 93.4 fl (80-100); Mean Platelet Volume 8.9 fl (7.4-10.4); Platelet Count Result 413 k/mm3 (150-375); Red Blood Count 2.73 M/mm3 (4.6-6.20); Red Cell Distribution Width 14.7 % (11.5-14.5); White Blood Count 24.2 K/mm3 (4.5-10.0)
[2019-10-16 06:31] LABS: Lactic Acid 2.7 mmol/L (0.7-2.1)
[2019-10-16 06:38] LABS: Alanine Aminotransferase 12 U/L (4-50); Albumin Level 1.6 g/dL (3.5-5.1); Alkaline Phosphatase 104 U/L (38-126); Anion Gap 11.5 mmol/L (7-16); Aspartate Amino Transferase 17 U/L (17-59); Bilirubin,Total < 0.1 mg/dL (0.2-1.3); Blood Urea Nitrogen 29 mg/dL (9-20); Calcium 6.8 mg/dL (8.4-10.2); Carbon Dioxide 24 mmol/L (22-30); Chloride 90 mmol/L (98-107); Estimated CRCL calculation 13 ml/min; Estimated Glomerular Filt Rate 16; Glucose 291 mg/dL (75-110); Magnesium 1.6 mg/dL (1.6-2.3); Phosphorus 2.8 mg/dL (2.5-4.5); Potassium 2.5 mmol/L (3.4-5.0); Sodium 123 mmol/L (137-145)
[2019-10-16 08:49] LABS: Appearance Peritoneal Fluid Clear (Clear); Color Peritoneal Fluid Colorless (Colorless); Source Peritoneal Fluid Peritoneal Fluid
[2019-10-16 08:51] LABS: Eosinophils Peritoneal Fluid 1 %; Lymphocytes Peritoneal Fluid 1 %; Monocytes Peritoneal Fluid 1 %; Neutrophils Peritoneal Fluid 97 % (0-25); Nucleated Cells Peritoneal Flu 521 /uL (0-500); RBC Peritoneal Fluid 0 /uL (0-100000)
[2019-10-16] MEDS: POTASSIUM CHLORIDE 20 MEQ PACKET (FOR LIQUID) 40 MEQ PO (08:54)
[2019-10-16] MEDS: SILVERGEL (ELTA) 45 ML 1 APPLIC TOPICAL (08:55)
[2019-10-16] MEDS: GABAPENTIN 100 MG CAPSULE 200 MG PO (08:55)
[2019-10-16] MEDS: LEVOTHYROXINE SODIUM 75 MCG TABLET PO (08:55)
[2019-10-16] MEDS: CLOPIDOGREL BISULFATE 75 MG TABLET PO (08:55)
[2019-10-16] MEDS: PANTOPRAZOLE SODIUM IV 40 MG VIAL IV PUSH ×2 (08:56→22:07)
[2019-10-16] MEDS: PRAVASTATIN SODIUM 20 MG TABLET 80 MG PO (08:56)
--- NOTE | 2019-10-16 10:22 | PM.PNGS ---
Progress Note: A&P Assessment and Plan (1) Peritonitis (acute) generalized: Code(s): K65.0 - Generalized (acute) peritonitis Status: Acute Assessment and Plan: Patient with peritonitis. Peritoneal fluid sent for culture and smear. Smear shows reactive mesothelial cells and acute inflammation. Gram stain showed many WBC, no organisms. Cultures showing no growth. May be related to peritoneal dialysis/peritoneal catheter. Nephrology has been consulted and their recommendations are noted. He is receiving Fortaz through his peritoneal catheter for treatment. Continue broad-spectrum IV antibiotics for possible colitis seen on CT and monitor labs. Since it appears this peritonitis may or may not be related to his peritoneal dialysis which with his recent history is more likely), but there is some chance that it is from translocation of bacteria for the colitis seen on his abd/pelvic CT done on admission. General surgery will not see over the weekend, but please call if we can be of some help. Dr. Gonzalez will be on-call this weekend. (2) Cardiorespiratory arrest: Code(s): I46.9 - Cardiac arrest, cause unspecified Status: Acute Assessment and Plan: Cardiorespiratory arrest last night. [place] to possibly be due to aspiration. Patient now intubated and sedated in the ICU. Management and wean vent per Fabrication Technician. (3) Septic shock: Code(s): A41.9 - Sepsis, unspecified organism; R65.21 - Severe sepsis with septic shock Status: Acute Assessment and Plan: Likely secondary to aspiration pneumonia vs. colitis vs. peritonitis. Currently requiring vasopressor support. Blood cultures NGTD. Continue broad-spectrum IV abx. Management per Fabrication Technician and primary service. (4) Aspiration pneumonia: Code(s): J69.0 - Pneumonitis due to inhalation of food and vomit Status: Acute Assessment and Plan: Continue IV antibiotics per primary service. (5) Colitis: Code(s): K52.9 - Noninfective gastroenteritis and colitis, unspecified Status: Acute Assessment and Plan: Sigmoid colitis found on CT scan and ultrasound. Possibility of sigmoid diverticulitis. No evidence of perforation on imaging. Continue IV antibiotics and bowel rest. Currently NPO, intubated, and sedated. (6) Cholelithiasis: Code(s): K80.20 - Calculus of gallbladder without cholecystitis without obstruction Status: Acute Assessment and Plan: Cholelithiasis noted on CT and ultrasound. No evidence of acute cholecystitis. We do not believe this is the cause of his abdominal pain or leukocytosis. No indication for surgical intervention at this time. (7) Atrial fibrillation, new onset: Code(s): I48.91 - Unspecified atrial fibrillation Status: Acute Assessment and Plan: New onset a. fib in the ER. Cardiac arrest overnight and was apparently in a. fib RVR at some point. Now currently in sinus rhythm. Could consider Cardiology consult. Management per primary service. (8) Urinary tract infection: Qualifiers: Hematuria presence: with hematuria Urinary tract infection type: site unspecified Qualified Code(s): N39.0 - Urinary tract infection, site not specified; R31.9 - Hematuria, unspecified Code(s): N39.0 - Urinary tract infection, site not specified Status: Acute Assessment and Plan: Urine culture pending. Continue IV antibiotics. Management per Hospitalist service. (9) Antiplatelet or antithrombotic long-term use: Code(s): Z79.02 - [place] (current) use of antithrombotics/antiplatelets Status: Acute Assessment and Plan: Continue to hold Plavix for now. (10) Chronic hyponatremia: Code(s): E87.1 - Hypo-osmolality and hyponatremia Status: Acute Assessment and Plan: Still has a very low sodium. (11) History of bladder cancer: Code(s): Z85.51 - Personal history of malignant neoplasm of bladder Statu
--- NOTE | 2019-10-16 11:29 | PCDIET ---
Nutrition Follow-Up Complete: Nutrition Diagnosis: Inadequate oral intake related to oral intubation as evidenced by NPO status. Nutrition Goal: Patient to meet estimated nutritional needs. Goal in progress. MD ordered to start Nepro at goal of 20mL/hr to stimulate GI tract. Clinimix will be continued at 30mL/hr with elimination of lipid emulsion for fluid control. Discussed with MD plan to advance feedings slowly, as patient at risk of refeeding syndrome. If patient tolerates Nepro at 20mL/hr with stable electrolytes, recommend increase toward goal of 35mL/hr with continued tapering of Clinimix. Last recorded weight is 34.019 kg. Suspect weight entered in wrong units and is likely 74.8kg, although would reweigh for accuracy. Bowel Motility: Abdomen distended. Bowel sounds hypoactive. Surgery adding medication to promote BM. Labs Reviewed: Hgb (8.5), Hct (25.5), Glu (291), BUN (29), Cr (3.8), K (2.5), Alb (1.6), Ade Ca (8.72), PO4 (2.8), Mg (1.6) Meds Noted: Dulcolax, Cefepime, Probiotic, Miralax, Fentanyl, Synthroid, Flagyl, Versed, KCl Additional Notes: Left toe ulcer; no other skin issues reported. Patient may benefit from hypoglycemic agents, if medically appropriate. Nutrition Monitoring and Evaluation: Follow up every Saturday/Saturday. Follow daily in ICU rounds.
[2019-10-16 12:17] LABS: Glucose Point of Care 289 (65-105)
--- NOTE | 2019-10-16 12:24 | WPDINTPN ---
Progress Note: A&P Assessment and Plan (1) Septic shock: Code(s): A41.9 - Sepsis, unspecified organism; R65.21 - Severe sepsis with septic shock Status: Acute Assessment and Plan: RESOLVED: OFF LEVOPHED since 2:00 a.m. on 10/16/2019 - Septic shock likely due to aspiration pneumonia, colitis and positive pressure ventilation - blood, urine and peritoneal cx are negative - continue Cefepime and flagyl - patient on intraperitoneal ceftazidime per Nephrology (2) Cardiorespiratory arrest: Code(s): I46.9 - Cardiac arrest, cause unspecified Status: Acute Assessment and Plan: PEA arrest likely due aspiration,ROSC after 1 round of epinephrine - post arrest pt was following commands and so did not require hypothermia protocol - trops elevated to 0.40 likely due to cardiac arrest (3) Aspiration pneumonia: Code(s): J69.0 - Pneumonitis due to inhalation of food and vomit Status: Acute Assessment and Plan: worsening chest x-ray likely related to aspiration pneumonia /pneumonitis - continue antibiotics as above - patient on mechanical ventilation, peep of 5, 30% FiO2, ABGs adequate, will wean FiO2 as tolerated - has stopped fentanyl and Versed infusion, will allow the patient to wake up - will place patient on SBT once he is more awake and evaluate for extubation (4) Colitis: Code(s): K52.9 - Noninfective gastroenteritis and colitis, unspecified Status: Acute Assessment and Plan: patient presented with abdominal pain, nausea, vomiting and diarrhea, CT scan of the abdomen and pelvis showed sigmoid colon wall thickening is consistent with colitis - continue antibiotics as above - bowel rest - patient on TPN - will start trickle tube feeds today, 10/15 - discussed with surgery (5) ESRD (end stage renal disease) on dialysis: Code(s): N18.6 - End stage renal disease; Z99.2 - Dependence on renal dialysis Status: Acute Assessment and Plan: patient with end-stage renal disease on peritoneal dialysis - peritoneal fluid cultures negative so far - discussed with Nephrology, peritoneal dialysis per Nephrology - potassium has been replaced (6) DVT prophylaxis: Code(s): Z29.9 - Encounter for prophylactic measures, unspecified Status: Acute Assessment and Plan: DVT prophylaxis: SCDs, heparin SQ stress ulcer prophylaxis: Protonix Additional Plan discussed with and updated her with patient's condition and plan of care. I answered all questions, I also called the daughter, Tresa, was a nurse practitioner and updated her with patient's condition and plan of care. I answered all her questions. She is aware that patient is off all sedation and we will be placing him on a spontaneous breathing trial to evaluate for extubation code status: Full code critical care time spent: 39 minutes Due to a high probability of clinically significant, life threatening deterioration, the patient required my highest level of preparedness to intervene emergently and I personally spent this critical care time directly and personally managing the patient. This critical care time included obtaining a history; examining the patient; pulse oximetry; ordering and review of studies; arranging urgent treatment with development of a management plan; evaluation of patient's response to treatment; frequent reassessment; and discussions with other providers. It was exclusive of separately billable procedures and treating other patients and teaching time. Please see Assessment and Plan section and the rest of the note for further information on patient assessment and treatment Subjective Date/time seen: 10/16/19 12:24 Interval history: Reason for consult: acute respiratory failure, acute colitis, aspiration, cardiac arrest 10/16/2019: Patient seen and examined. Remains intubated, 35% FiO2, peep of 5. Patient is sedated with fentanyl 50 mcg/h
--- NOTE | 2019-10-16 13:39 | PM.PNNEP ---
Progress Note: A&P Assessment and Plan (1) Peritonitis (acute) generalized: Code(s): K65.0 - Generalized (acute) peritonitis Status: Acute Assessment and Plan: the patient has peritonitis. CT scan shows no perforation. It does show colitis. He may have translocation of bacteria or endotoxin cause by the colitis. will see what the cultures show. He might have gotten antibiotics in the ER before the PD fluid cultures were drawn on the floor. His cultures are negative still. will continue Fortaz in along do well daily and re-dose vancomycin on saturday if needed With negative cultures will just go ahead and do this. Repeat PD cell count which down to just over 500. Fluid looks much clear this morning. (2) Colitis: Code(s): K52.9 - Noninfective gastroenteritis and colitis, unspecified Status: Acute Assessment and Plan: this is being evaluated by Dr. Lopez Considering infection versus ischemic (3) Septic shock: Code(s): A41.9 - Sepsis, unspecified organism; R65.21 - Severe sepsis with septic shock Status: Acute Assessment and Plan: patient Has improved hemodynamically. very little fluid was removed last night. He is off pressors. With swelling we will change his PD to take some fluid off. (4) Hyponatremia: Code(s): E87.1 - Hypo-osmolality and hyponatremia Status: Acute Assessment and Plan: this is chronic. Try to limit free water intake. sodium is low but stable. (5) Aspiration pneumonia: Code(s): J69.0 - Pneumonitis due to inhalation of food and vomit Status: Acute Assessment and Plan: Patient had nausea and vomiting and aspirated. He is getting pulmonary toilet and supportive care. (6) Atrial fibrillation, new onset: Code(s): I48.91 - Unspecified atrial fibrillation Status: Acute Assessment and Plan: Patient has atrial fibrillation. Heart rate is well controlled In the 90s (7) ESRD (end stage renal disease) on dialysis: Code(s): N18.6 - End stage renal disease; Z99.2 - Dependence on renal dialysis Status: Acute Assessment and Plan: he will get peritoneal dialysis tonight . Will Use 2.5% Dianeal tonight so we do not remove much fluid. (8) Urinary tract infection: Qualifiers: Hematuria presence: with hematuria Urinary tract infection type: site unspecified Qualified Code(s): N39.0 - Urinary tract infection, site not specified; R31.9 - Hematuria, unspecified Code(s): N39.0 - Urinary tract infection, site not specified Status: Acute Assessment and Plan: urine culture negative. Subjective Date/time seen: 10/16/19 13:39 Interval history: Patient is sedated and on the ventilator. He winces when I pushed on his belly. Review of Systems Review of Systems: ROS unobtainable: Yes unobtainable due to medical condition Exam Narrative: Exam Narrative: Exam Narrative: Well developed well-nourished gentleman lying in the ICU bed on the ventilator. He is sedated. Skin is warm and dry without rash Head normocephalic atraumatic Lungs symmetric and coarse bilaterally. Heart irregular rate and rhythm without rub or gallop Abdomen bowel sounds absent. Somewhat firm. Mildly tender. no HSM, masses, or bruits. Extremities 1+ presacral edema Objective Data Vital Signs Vital Signs: Vital Signs - 24 hr 10/15/19 14:00 10/15/19 14:35 10/15/19 15:00 Temperature Pulse Rate 72 72 70 Respiratory Rate 14 Blood Pressure 97/56 L 79/51 L Pulse Oximetry 98 100 10/15/19 16:00 10/15/19 17:28 10/15/19 17:29 Temperature 36.3 C L Pulse Rate 73 82 83 Respiratory Rate 14 14 Blood Pressure 97/47 L 115/67 Pulse Oximetry 99 10/15/19 17:30 10/15/19 17:38 10/15/19 20:00 Temperature Pulse Rate 83 84 82 Respiratory Rate 14 Blood Pressure Pulse Oximetry 99 10/15/19 20:29 0
[2019-10-16] MEDS: polyethylene glycoL 3350 17 GM POWD.PACK FEED TUBE (17:51)
[2019-10-16] MEDS: BISACODYL 10 MG SUPPOSITORY RECTAL (17:51)
[2019-10-16 18:19] LABS: Glucose Point of Care 243 (65-105)
[2019-10-17] VITALS (29 sets, daily range): BP systolic 91–149; BP diastolic 48–76; PULSE 74–137; RESP 11–15; TEMP 36.3–36.6; O2SAT 96–100
[2019-10-17] MEDS: metroNIDAZOLE 500 MG/ISO 100ML 500 MG/100 ML BAG 100 MG IVPB ×4 (00:29→17:09)
[2019-10-17] MEDS: METOPROLOL TARTRATE INJ 5 MG/5 ML VIAL IV PUSH (00:29)
[2019-10-17] MEDS: INSULIN ASPART (*BKC) 100 UNITS/ML SUB-Q ×3 (00:34→12:21)
[2019-10-17 00:41] LABS: Glucose Point of Care 305 (65-105)
[2019-10-17 04:43] LABS: Alveolar/Arterial O2 Gradient 103.4 mmHg; Base Excess ABG -2.8 mEq/l (+/-2.0); Carboxyhemoglobin 0.3 % THb (0-2.0); Fractional Inspired Oxygen 30 %; Methemoglobin ABG 0.2 %THb (0-1.5); Oxygen Content ABG 15.5 %vol (16.0-22.0); Oxyhemoglobin 95.5 % THb (90.0-100.0); PO2 ABG 81.1 mmHg (80.0-100.0); Total Hemoglobin 11.5 g/dL (12.0-18.0); pH ABG 7.499 (7.350-7.450)
[2019-10-17 04:44] LABS: Device VENTILATOR; Modified Allen's Test Pass; Site Drawn RIGHT RADIAL
[2019-10-17 04:45] LABS: Arterial Blood Gas PEEP 5 cmH2O; Arterial Blood Gas Vent Mode ASV
[2019-10-17 06:07] LABS: Glucose Point of Care 314 (65-105)
[2019-10-17] MEDS: HEPARIN SODIUM 5,000 UNITS/ML VIAL 5000 UNITS SUB-Q ×3 (06:13→21:19)
[2019-10-17] MEDS: LEVOTHYROXINE SODIUM 75 MCG TABLET PO (06:14)
[2019-10-17 06:48] LABS: Hematocrit 27.8 % (42.0-52.0); Hemoglobin 9.5 g/dL (14.0-18.0); Mean Corpuscular HGB Conc 34.2 g/dl (32-36); Mean Corpuscular Hemoglobin 31.6 pg (26-34); Mean Corpuscular Volume 92.4 fl (80-100); Mean Platelet Volume 9.1 fl (7.4-10.4); Platelet Count Result 380 k/mm3 (150-375); Red Blood Count 3.01 M/mm3 (4.6-6.20); Red Cell Distribution Width 14.6 % (11.5-14.5); White Blood Count 32.5 K/mm3 (4.5-10.0)
[2019-10-17 07:02] LABS: Lactic Acid 3.6 mmol/L (0.7-2.1)
[2019-10-17 07:04] LABS: Alanine Aminotransferase 15 U/L (4-50); Albumin Level 1.7 g/dL (3.5-5.1); Alkaline Phosphatase 107 U/L (38-126); Anion Gap 12.4 mmol/L (7-16); Aspartate Amino Transferase 27 U/L (17-59); Bilirubin,Total 0.2 mg/dL (0.2-1.3); Blood Urea Nitrogen 31 mg/dL (9-20); Calcium 7.1 mg/dL (8.4-10.2); Carbon Dioxide 22 mmol/L (22-30); Chloride 90 mmol/L (98-107); Estimated CRCL calculation 14 ml/min; Estimated Glomerular Filt Rate 17; Glucose 361 mg/dL (75-110); Magnesium 1.4 mg/dL (1.6-2.3); Phosphorus 1.7 mg/dL (2.5-4.5); Potassium 2.4 mmol/L (3.4-5.0); Sodium 122 mmol/L (137-145); Triglycerides 96 mg/dL (<150)
[2019-10-17] MEDS: POTASSIUM CHLORIDE 20 MEQ PACKET (FOR LIQUID) 40 MEQ FEED TUBE ×2 (08:17→17:18)
[2019-10-17] MEDS: ACIDOPHILUS/BULGARICUS CHEWABLE TABLET 1 TABLET PO (08:18)
[2019-10-17] MEDS: GABAPENTIN 100 MG CAPSULE 200 MG PO (08:18)
[2019-10-17] MEDS: CLOPIDOGREL BISULFATE 75 MG TABLET PO (08:18)
[2019-10-17] MEDS: PRAVASTATIN SODIUM 20 MG TABLET 80 MG PO (08:19)
[2019-10-17] MEDS: PANTOPRAZOLE SODIUM IV 40 MG VIAL IV PUSH ×2 (08:21→21:19)
[2019-10-17] MEDS: FLUTICASONE PROPIONATE 0.05% NA SPR 16 GM BTL (*BKC) 2 SPRAY NASAL (08:22)
[2019-10-17] MEDS: SILVERGEL (ELTA) 45 ML 1 APPLIC TOPICAL (08:27)
[2019-10-17] MEDS: KCL 20 MEQ/SW 100 ML 100 ML 50 MEQ IVPB (08:50)
--- NOTE | 2019-10-17 09:35 | PM.PNNEP ---
Progress Note: A&P Assessment and Plan (1) Peritonitis (acute) generalized: Code(s): K65.0 - Generalized (acute) peritonitis Status: Acute Assessment and Plan: the patient has peritonitis. CT scan shows no perforation. Fluid is less cloudy. Cell count is down. (2) Colitis: Code(s): K52.9 - Noninfective gastroenteritis and colitis, unspecified Status: Acute Assessment and Plan: [place] count and lactate her up. Considering infection versus ischemic He is going to get a CT scan today. We will do a CT with contrast and check the mesenteric vessels. (3) Septic shock: Code(s): A41.9 - Sepsis, unspecified organism; R65.21 - Severe sepsis with septic shock Status: Acute Assessment and Plan: patient Has improved hemodynamically. Continue to of remove fluid. (4) Hyponatremia: Code(s): E87.1 - Hypo-osmolality and hyponatremia Status: Acute Assessment and Plan: this is chronic. Try to limit free water intake. sodium is low but stable. (5) Aspiration pneumonia: Code(s): J69.0 - Pneumonitis due to inhalation of food and vomit Status: Acute Assessment and Plan: Patient had nausea and vomiting and aspirated. He is getting pulmonary toilet and supportive care. (6) Atrial fibrillation, new onset: Code(s): I48.91 - Unspecified atrial fibrillation Status: Acute Assessment and Plan: Patient has atrial fibrillation. Heart rate is well controlled In the 90s (7) ESRD (end stage renal disease) on dialysis: Code(s): N18.6 - End stage renal disease; Z99.2 - Dependence on renal dialysis Status: Acute Assessment and Plan: he will get peritoneal dialysis tonight . Continue 2.5% Dianeal (8) Urinary tract infection: Qualifiers: Hematuria presence: with hematuria Urinary tract infection type: site unspecified Qualified Code(s): N39.0 - Urinary tract infection, site not specified; R31.9 - Hematuria, unspecified Code(s): N39.0 - Urinary tract infection, site not specified Status: Acute Assessment and Plan: urine culture negative. Subjective Date/time seen: 10/17/19 09:35 Interval history: Patient is sedated and on the ventilator. He Does not wince when I pushed on his belly today. Still on the ventilator on peritoneal dialysis. Fluid is still a little cloudy but not as bad as on admission. flows are good. He was seen at 9:20 a.m. Review of Systems Review of Systems: ROS unobtainable: Yes unobtainable due to endotracheal tube and unobtainable due to medical condition Exam Narrative: Exam Narrative: Exam Narrative: Well developed well-nourished gentleman lying in the ICU bed on the ventilator. He is sedated. Skin No rash Head normocephalic atraumatic Lungs symmetric and coarse bilaterally. Heart irregular rate and rhythm without rub or gallop Abdomen bowel sounds absent. Somewhat firm. Mildly tender. no HSM, masses, or bruits. Extremities 1+ presacral edema still. Objective Data Vital Signs Vital Signs: Vital Signs - 24 hr 10/16/19 10:00 10/16/19 11:45 10/16/19 12:00 Temperature 36.3 C L Pulse Rate 98 90 91 Respiratory Rate 14 14 Blood Pressure 111/67 124/64 Pulse Oximetry 100 100 100 10/16/19 14:00 10/16/19 14:26 10/16/19 16:00 Temperature 37.0 C Pulse Rate 84 99 87 Respiratory Rate 14 14 Blood Pressure 130/64 102/55 L Pulse Oximetry 100 100 100 10/16/19 17:06 10/16/19 18:00 10/16/19 18:30 Temperature Pulse Rate 112 H 91 115 H Respiratory Rate 14 22 H Blood Pressure 146/68 H Pulse Oximetry 100 94 10/16/19 20:00 10/16/19 20:01 10/16/19 22:00 Temperature 36.6 C 36.6 C Pulse Rate 104 H 128 H 94 Respiratory Rate 28 H 28 H 14 Blood Pressure 134/97 H 134/97 H 95/49 L Pulse Oximetry 100 98 100 10/16/19 22:09 10/16/19 22:43 10/16/19 23:10 Temperature
[2019-10-17] MEDS: MIDAZOLAM HCL 2 MG/2 ML VIAL 4 MG IV PUSH (11:09)
[2019-10-17] MEDS: SODIUM CHLORIDE 0.9% IV 500 ML IV CONT (11:12)
--- NOTE | 2019-10-17 11:22 | PC.NURSE ---
RT pulled back ET one centimeter to 21 at the lip per Dr. Poon's recommendations based on morning chest x-ray. Pt developed leak. Dr. Poon notified and came to bedside. Pt was reintubated. Pt received 30 mg propofol, 4 mg versed, and 40 mg etomidate during procedure. Reintubation successful. Post-procedure pt developed hypotension, BP 51/49. 500 mL bolus given per Dr. Poon's orders. Most recent BP 121/60. Pt resting comfortably, vital signs stable at this time. will continue to monitor
[2019-10-17] MEDS: POTASSIUM PHOS,M-BASIC-D-BASIC 20 MMOL in SODIUM CHLORIDE 0.9% IV 250 ML 64 MMOL IVPB (11:42)
[2019-10-17] MEDS: MAGNESIUM SULF 4 GM/WATER100ML 4 GM/100 ML BAG IVPB (11:50)
[2019-10-17 12:20] LABS: Glucose Point of Care 392 (65-105)
--- NOTE | 2019-10-17 12:54 | WPDPROCEDUR ---
Procedures Intubation Intubation Date: 10/17/19 Intubation Time: 09:55 A pre-procedural Time-Out was completed immediately before starting the procedure and confirmed: Patient Identification, Site, Procedure, Patient Position and the Availability of Requisite Equipment: No Sedative: etomidate Mg given: 60 Laryngoscope: fiber optic video scope Assist device used: fiber optic device ET tube size: cuffed Tube secured depth (cm): 25 Tube secured location: teeth Tube placement confirmation: visualized tube passing through cords, equal breath sounds bilaterally and confirmation by capnometry Patient tolerated procedure: well Intubation complications: none
--- NOTE | 2019-10-17 12:58 | WPDINTPN ---
Progress Note: A&P Assessment and Plan (1) Septic shock: Code(s): A41.9 - Sepsis, unspecified organism; R65.21 - Severe sepsis with septic shock Status: Acute Assessment and Plan: RESOLVED: OFF LEVOPHED since 2:00 a.m. on 10/16/2019 - Septic shock likely due to aspiration pneumonia, colitis and positive pressure ventilation - blood, urine and peritoneal cx are negative - continue Cefepime and flagyl - patient on intraperitoneal ceftazidime per Nephrology Today he has been noticed to have significant elevated WBC count along with mild lactic acidosis. I have ordered CT of the chest along with CT abdomen pelvis with contrast to look for infectious etiology as well as mesenteric ischemia. Tube feed has been on hold. (2) Cardiorespiratory arrest: Code(s): I46.9 - Cardiac arrest, cause unspecified Status: Acute Assessment and Plan: PEA arrest likely due aspiration,ROSC after 1 round of epinephrine - post arrest pt was following commands and so did not require hypothermia protocol - trops elevated to 0.40 likely due to cardiac arrest (3) Aspiration pneumonia: Code(s): J69.0 - Pneumonitis due to inhalation of food and vomit Status: Acute Assessment and Plan: worsening chest x-ray likely related to aspiration pneumonia /pneumonitis - continue antibiotics as above - patient on mechanical ventilation, peep of 5, 30% FiO2, ABGs adequate, will wean FiO2 as tolerated - Being sedated with fentanyl and propofol. Today his ET tube was exchanged as the ET tube got dislodged during manipulation today is ET tube tip was at the karena. He was reintubated. (4) Colitis: Code(s): K52.9 - Noninfective gastroenteritis and colitis, unspecified Status: Acute Assessment and Plan: patient presented with abdominal pain, nausea, vomiting and diarrhea, CT scan of the abdomen and pelvis showed sigmoid colon wall thickening is consistent with colitis - continue antibiotics as above - bowel rest - patient on TPN - I will hold tube feed until CTA of abdomen pelvis is performed. Surgery is following. (5) ESRD (end stage renal disease) on dialysis: Code(s): N18.6 - End stage renal disease; Z99.2 - Dependence on renal dialysis Status: Acute Assessment and Plan: patient with end-stage renal disease on peritoneal dialysis - peritoneal fluid cultures negative so far - discussed with Nephrology, peritoneal dialysis per Nephrology - potassium has been replaced (6) DVT prophylaxis: Code(s): Z29.9 - Encounter for prophylactic measures, unspecified Status: Acute Assessment and Plan: DVT prophylaxis: SCDs, heparin SQ stress ulcer prophylaxis: Protonix Additional Plan discussed with and updated her with patient's condition and plan of care. I answered all questions. Magnesium and phosphate has been repleted. code status: Full code critical care time spent: 39 minutes Due to a high probability of clinically significant, life threatening deterioration, the patient required my highest level of preparedness to intervene emergently and I personally spent this critical care time directly and personally managing the patient. This critical care time included obtaining a history; examining the patient; pulse oximetry; ordering and review of studies; arranging urgent treatment with development of a management plan; evaluation of patient's response to treatment; frequent reassessment; and discussions with other providers. It was exclusive of separately billable procedures and treating other patients and teaching time. Please see Assessment and Plan section and the rest of the note for further information on patient assessment and treatment Subjective Date/time seen: 10/17/19 12:58 His ET tube inadverntly came out today during manipulation as chest x-ray showed chest tube at karena. Initially chest tube was try to be castillo
--- NOTE | 2019-10-17 16:11 | PM.IMPN ---
Progress Note: A&P Assessment and Plan (1) Septic shock: Code(s): A41.9 - Sepsis, unspecified organism; R65.21 - Severe sepsis with septic shock Status: Acute Assessment and Plan: 10/17/19 16:11 patient is 78-year-old male with history of end-stage renal disease on peritoneal dialysis presented emergency department had a cardiac arrest ROSC after 1 round of epinephrine per protocol ROSC, with shortness of breath and hypoxic patient was intubated currently on vent, patient may have aspirated pneumonia, patient in septic shock and on pressor, patient being treated with Levaquin, vancomycin and Flagyl, discussed with promotion manager prognosis is poor we appreciate promotion manager, patient is seen by Dr. Aguilar nephrology for peritoneal dialysis, Sheet Metal Journeyman had spoken with patient's , she would like to keep full code and continue to treat the patient. septic shock resolved and patient is off Levophed, septic shock most likely secondary to aspiration pneumonia possibly peritonitis and treated with Flagyl cefepime and ceftazidime intraperitoneal by nephrology, appreciate promotion manager and Dr. Aguilar. (2) Cardiorespiratory arrest: Code(s): I46.9 - Cardiac arrest, cause unspecified Status: Acute Assessment and Plan: after 1 round of epinephrine per protocol ROSC, (3) Aspiration pneumonia: Code(s): J69.0 - Pneumonitis due to inhalation of food and vomit Status: Acute Assessment and Plan: during suction bile was seen most likely patient had aspirated resulting in pneumonia (4) Atrial fibrillation: Code(s): I48.91 - Unspecified atrial fibrillation Status: Acute (5) Hyponatremia: Code(s): E87.1 - Hypo-osmolality and hyponatremia Status: Acute Assessment and Plan: rate is controlled (6) Abnormal computed tomography of abdomen and pelvis: Code(s): R93.5 - Abnormal findings on diagnostic imaging of other abdominal regions, including retroperitoneum Status: Acute Assessment and Plan: suspect peritonitis (7) Peritonitis (acute) generalized: Code(s): K65.0 - Generalized (acute) peritonitis Status: Acute Assessment and Plan: patient on peritoneal dialysis,patient is being treated with antibiotics Subjective Date/time seen: 10/17/19 16:11 patient is 78-year-old male with history of end-stage renal disease on peritoneal dialysis presented emergency department had a cardiac arrest ROSC after 1 round of epinephrine per protocol ROSC, with shortness of breath and hypoxic patient was intubated currently on vent, patient may have aspirated pneumonia, patient in septic shock and on pressor, patient being treated with Levaquin, vancomycin and Flagyl, discussed with promotion manager prognosis is poor we appreciate promotion manager, patient is seen by Dr. Aguilar nephrology for peritoneal dialysis, Sheet Metal Journeyman had spoken with patient's , she would like to keep full code and continue to treat the patient. septic shock resolved and patient is off Levophed, septic shock most likely secondary to aspiration pneumonia possibly peritonitis and treated with Flagyl cefepime and ceftazidime intraperitoneal by nephrology, appreciate promotion manager and Dr. Aguilar. Review of Systems Review of Systems: ROS unobtainable: Yes unobtainable due to endotracheal tube Exam Const: General: comfortable and no acute distress HENMT: Other: ET tube in place Eyes: Sclera: sclerae normal Neck: Other: no retraction Resp: Effort & Inspection: normal respiratory effort Auscultation: clear to auscultation bilaterally Cardio: Rate: regular rate Rhythm: regular rhythm GI: Auscultation: normal bowel sounds Skin: General skin exam: normal color Neuro: Other: on vent and sedated Extrem: General: normal to inspection Psych: Other: vent and sedated Objective Data Vital Signs Vital Signs: Vital Signs - 24 hr 10/16/19 17:06 10/16/19 1
[2019-10-17 17:37] LABS: Glucose Point of Care 407 (65-105)
[2019-10-17] MEDS: INSULIN ASPART (*BKC) 100 UNITS/ML 12 UNITS SUB-Q (17:57)
[2019-10-17] MEDS: FAT EMULSIONS IV 20% 250 ML 20.8 ML IVPB (18:47)
[2019-10-18] VITALS (21 sets, daily range): BP systolic 89–143; BP diastolic 49–91; PULSE 92–131; RESP 12–22; TEMP 36.4–37.3; O2SAT 96–100
[2019-10-18] MEDS: metroNIDAZOLE 500 MG/ISO 100ML 500 MG/100 ML BAG 100 MG IVPB ×4 (00:15→17:47)
[2019-10-18] MEDS: INSULIN ASPART (*BKC) 100 UNITS/ML SUB-Q ×4 (00:16→17:49)
[2019-10-18 00:26] LABS: Glucose Point of Care 368 (65-105)
[2019-10-18 04:42] LABS: Alveolar/Arterial O2 Gradient 99.1 mmHg; Base Excess ABG -2.7 mEq/l (+/-2.0); Carboxyhemoglobin 0.4 % THb (0-2.0); Fractional Inspired Oxygen 30 %; HCO3 ABG 20.2 mEq/l (22.0-26.0); Methemoglobin ABG 0.3 %THb (0-1.5); Oxygen Content ABG 19.9 %vol (16.0-22.0); Oxygen Saturation ABG 96.2 % (95.0-100.0); Oxyhemoglobin 94.8 % THb (90.0-100.0); PCO2 ABG 30.5 mmHg (35.0-45.0); PO2 FiO2 Ratio Arterial Blood 2.63 %; Reduced Hemoglobin 4.5 %THb (0-5.0); Total Hemoglobin 14.9 g/dL (12.0-18.0); pH ABG 7.439 (7.350-7.450)
[2019-10-18 04:43] LABS: Device VENTILATOR; Modified Allen's Test Pass; Site Drawn LEFT RADIAL
[2019-10-18 04:44] LABS: Arterial Blood Gas PEEP 5 cmH2O; Arterial Blood Gas Vent Mode ASV
[2019-10-18] MEDS: LEVOTHYROXINE SODIUM 75 MCG TABLET PO (05:25)
[2019-10-18] MEDS: HEPARIN SODIUM 5,000 UNITS/ML VIAL 5000 UNITS SUB-Q ×2 (05:25→13:06)
[2019-10-18 05:30] LABS: Glucose Point of Care 308 (65-105)
[2019-10-18 06:12] LABS: Hematocrit 28.1 % (42.0-52.0); Hemoglobin 9.6 g/dL (14.0-18.0); Mean Corpuscular HGB Conc 34.2 g/dl (32-36); Mean Corpuscular Hemoglobin 31.6 pg (26-34); Mean Corpuscular Volume 92.4 fl (80-100); Mean Platelet Volume 9.3 fl (7.4-10.4); Platelet Count Result 380 k/mm3 (150-375); Red Blood Count 3.04 M/mm3 (4.6-6.20); White Blood Count 35.1 K/mm3 (4.5-10.0)
[2019-10-18 06:37] LABS: Triglycerides 134 mg/dL (<150)
[2019-10-18 06:40] LABS: Lactic Acid 3.1 mmol/L (0.7-2.1)
[2019-10-18 06:44] LABS: Alanine Aminotransferase 14 U/L (4-50); Albumin Level 1.6 g/dL (3.5-5.1); Alkaline Phosphatase 116 U/L (38-126); Anion Gap 12.2 mmol/L (7-16); Aspartate Amino Transferase 19 U/L (17-59); Bilirubin,Total 0.3 mg/dL (0.2-1.3); Blood Urea Nitrogen 27 mg/dL (9-20); Calcium 7.2 mg/dL (8.4-10.2); Carbon Dioxide 21 mmol/L (22-30); Chloride 91 mmol/L (98-107); Estimated CRCL calculation 15 ml/min; Estimated Glomerular Filt Rate 19; Glucose 354 mg/dL (75-110); Magnesium 2.1 mg/dL (1.6-2.3); Phosphorus 1.6 mg/dL (2.5-4.5); Potassium 2.2 mmol/L (3.4-5.0); Sodium 122 mmol/L (137-145)
[2019-10-18] MEDS: POTASSIUM PHOS,M-BASIC-D-BASIC 20 MMOL in SODIUM CHLORIDE 0.9% IV 250 ML 64 MMOL IVPB (08:44)
[2019-10-18] MEDS: PRAVASTATIN SODIUM 20 MG TABLET 80 MG PO (08:50)
[2019-10-18] MEDS: ACIDOPHILUS/BULGARICUS CHEWABLE TABLET 1 TABLET PO (08:51)
[2019-10-18] MEDS: GABAPENTIN 100 MG CAPSULE 200 MG PO (08:51)
[2019-10-18] MEDS: CLOPIDOGREL BISULFATE 75 MG TABLET PO (08:52)
[2019-10-18] MEDS: PANTOPRAZOLE SODIUM IV 40 MG VIAL IV PUSH ×2 (08:52→19:47)
[2019-10-18] MEDS: FLUTICASONE PROPIONATE 0.05% NA SPR 16 GM BTL (*BKC) 2 SPRAY NASAL (08:55)
[2019-10-18] MEDS: POTASSIUM/PHOSPHORUS/SODIUM 1.5 GM PACKET 1 PACKET PO (08:57)
[2019-10-18] MEDS: POTASSIUM CHLORIDE 20 MEQ PACKET (FOR LIQUID) 40 MEQ PO ×2 (09:02→18:08)
[2019-10-18] MEDS: SILVERGEL (ELTA) 45 ML 1 APPLIC TOPICAL (09:03)
--- NOTE | 2019-10-18 09:43 | PM.PNNEP ---
Progress Note: A&P Assessment and Plan (1) Peritonitis (acute) generalized: Code(s): K65.0 - Generalized (acute) peritonitis Status: Acute Assessment and Plan: the patient has peritonitis. CT scan shows no perforation. fluid has been better. CT angio showed no mesenteric vascular disease. (2) Colitis: Code(s): K52.9 - Noninfective gastroenteritis and colitis, unspecified Status: Acute Assessment and Plan: White count and lactate her up. Considering infection versus ischemic CT a negative for ischemia (3) Septic shock: Code(s): A41.9 - Sepsis, unspecified organism; R65.21 - Severe sepsis with septic shock Status: Acute Assessment and Plan: patient Has improved hemodynamically. Continue to of remove fluid. sugars are high which slows the removal of fluid. (4) Hyponatremia: Code(s): E87.1 - Hypo-osmolality and hyponatremia Status: Acute Assessment and Plan: this is chronic. Try to limit free water intake. sodium is low but stable. Will give a small dose of 3% saline to bring the Sodium Op. (5) Aspiration pneumonia: Code(s): J69.0 - Pneumonitis due to inhalation of food and vomit Status: Acute Assessment and Plan: Patient had nausea and vomiting and aspirated. He is getting pulmonary toilet and supportive care. (6) Atrial fibrillation, new onset: Code(s): I48.91 - Unspecified atrial fibrillation Status: Acute Assessment and Plan: Patient has atrial fibrillation. Heart rate is well controlled In the 90s (7) ESRD (end stage renal disease) on dialysis: Code(s): N18.6 - End stage renal disease; Z99.2 - Dependence on renal dialysis Status: Acute Assessment and Plan: he will get peritoneal dialysis tonight . Continue 2.5% Dianeal (8) Urinary tract infection: Qualifiers: Hematuria presence: with hematuria Urinary tract infection type: site unspecified Qualified Code(s): N39.0 - Urinary tract infection, site not specified; R31.9 - Hematuria, unspecified Code(s): N39.0 - Urinary tract infection, site not specified Status: Acute Assessment and Plan: urine culture negative. Subjective Date/time seen: 10/18/19 09:43 Interval history: Patient is sedated and on the ventilator. Patient is off sedatives and is not responsive. There getting a CT scan Review of Systems Review of Systems: ROS unobtainable: Yes unobtainable due to endotracheal tube and unobtainable due to medical condition Exam Narrative: Exam Narrative: Exam Narrative: Well developed well-nourished gentleman lying in the ICU bed on the ventilator. He is sedated. Skin No rash or subcu nodules Head normocephalic atraumatic Lungs symmetric and coarse bilaterally. Heart irregular rate and rhythm without rub or gallop Abdomen bowel sounds absent. Somewhat firm. Mildly tender. no HSM, masses, or bruits. Extremities 1+ presacral edema still. Objective Data Vital Signs Vital Signs: Vital Signs - 24 hr 10/17/19 10:00 10/17/19 10:30 10/17/19 11:24 Temperature Pulse Rate 98 103 H 94 Respiratory Rate 15 15 Blood Pressure 95/53 L Pulse Oximetry 98 100 10/17/19 12:00 10/17/19 14:00 10/17/19 14:15 Temperature 36.3 C L Pulse Rate 74 86 79 Respiratory Rate 15 15 Blood Pressure 91/70 L Pulse Oximetry 98 99 100 10/17/19 14:17 10/17/19 15:50 10/17/19 16:00 Temperature 36.4 C L Pulse Rate 84 84 82 Respiratory Rate 15 15 15 Blood Pressure 97/49 L Pulse Oximetry 100 10/17/19 16:33 10/17/19 17:31 10/17/19 18:00 Temperature Pulse Rate 77 74 79 Respiratory Rate 15 15 Blood Pressure 107/54 L Pulse Oximetry 100 98 10/17/19 18:22 10/17/19 20:00 10/17/19 20:25 Temperature 36.5 C 36.5 C Pulse Rate 82 77 80 Respiratory Rate 15 15 15 Blood Pressure 108/48 L 101/52 L Pulse Oxi
--- NOTE | 2019-10-18 09:52 | WPDINTPN ---
Progress Note: A&P Assessment and Plan (1) Septic shock: Code(s): A41.9 - Sepsis, unspecified organism; R65.21 - Severe sepsis with septic shock Status: Acute Assessment and Plan: RESOLVED: OFF LEVOPHED since 2:00 a.m. on 10/16/2019 - Septic shock likely due to aspiration pneumonia, colitis and positive pressure ventilation - blood, urine and peritoneal cx are negative - continue Cefepime and flagyl - patient on intraperitoneal ceftazidime per Nephrology Lactic acidosis seems to be resolving with lactic acid level of 3.1 today compared to 3.6 yesterday. (2) Cardiorespiratory arrest: Code(s): I46.9 - Cardiac arrest, cause unspecified Status: Acute Assessment and Plan: PEA arrest likely due aspiration,ROSC after 1 round of epinephrine - post arrest pt was following commands and so did not require hypothermia protocol - trops elevated to 0.40 likely due to cardiac arrest (3) Aspiration pneumonia: Code(s): J69.0 - Pneumonitis due to inhalation of food and vomit Status: Acute Assessment and Plan: worsening chest x-ray likely related to aspiration pneumonia /pneumonitis - continue antibiotics as above - patient on mechanical ventilation With ASV peep of 5, 30% FiO2, ABGs adequate. Currently he is off sedatives since yesterday at 2PM but he is very drowsy and not waking up. SBT trial once he is fully awake and following command. He has end-stage renal disease and probably sedatives he has received so far will take some time to get metabolized and excreted. no further workup for his altered mental status but if his mental status does not improve in the next 24-48 hours then we can have further workup done. CT of head will be performed today rule out any intracranial pathologies which has been negative for any acute intracranial pathology. (4) Colitis: Code(s): K52.9 - Noninfective gastroenteritis and colitis, unspecified Status: Acute Assessment and Plan: patient presented with abdominal pain, nausea, vomiting and diarrhea, CT scan of the abdomen and pelvis showed sigmoid colon wall thickening is consistent with colitis. Repeat CT abdomen pelvis yesterday did not show any evidence of mesenteric ischemia. He does have ascites and 1 pocket of ascites seems to be loculated. - continue antibiotics as above - patient on TPN - Resume tube feed and advanced it to his goal rate if he is able to tolerated. Will stop TPN once he is at his goal rate. Surgery is following. (5) ESRD (end stage renal disease) on dialysis: Code(s): N18.6 - End stage renal disease; Z99.2 - Dependence on renal dialysis Status: Acute Assessment and Plan: patient with end-stage renal disease on peritoneal dialysis - peritoneal fluid cultures negative so far - discussed with Nephrology, peritoneal dialysis per Nephrology - potassium has been replaced (6) DVT prophylaxis: Code(s): Z29.9 - Encounter for prophylactic measures, unspecified Status: Acute Assessment and Plan: DVT prophylaxis: SCDs, heparin SQ stress ulcer prophylaxis: Protonix Additional Plan code status: Full code critical care time spent: 39 minutes Due to a high probability of clinically significant, life threatening deterioration, the patient required my highest level of preparedness to intervene emergently and I personally spent this critical care time directly and personally managing the patient. This critical care time included obtaining a history; examining the patient; pulse oximetry; ordering and review of studies; arranging urgent treatment with development of a management plan; evaluation of patient's response to treatment; frequent reassessment; and discussions with other providers. It was exclusive of separately billable procedures and treating other patients and teaching time. Please see Assessment and Plan section and the rest of the
[2019-10-18] MEDS: SODIUM CHLORIDE 3% 500 ML 35 ML IV CONT (11:15)
--- NOTE | 2019-10-18 12:10 | PM.IMPN ---
Progress Note: A&P Assessment and Plan (1) Septic shock: Code(s): A41.9 - Sepsis, unspecified organism; R65.21 - Severe sepsis with septic shock Status: Acute Assessment and Plan: 10/18/19 12:10 patient is 78-year-old male with history of end-stage renal disease on peritoneal dialysis presented emergency department had a cardiac arrest ROSC after 1 round of epinephrine per protocol ROSC, with shortness of breath and hypoxic patient was intubated currently on vent, patient may have aspirated pneumonia, patient in septic shock and on pressor, patient being treated with Levaquin, vancomycin and Flagyl, discussed with grievance manager prognosis is poor we appreciate grievance manager, patient is seen by Dr. Aguilar nephrology for peritoneal dialysis, Dialysis Tech had spoken with patient's , she would like to keep full code and continue to treat the patient. septic shock resolved and patient is off Levophed, septic shock most likely secondary to aspiration pneumonia possibly peritonitis and treated with Flagyl cefepime and ceftazidime intraperitoneal by nephrology, today discussed with grievance manager patient is off sedation and attempt to wean the patient off ventilator however patient is not respond, will have CT scan of the head the further evaluate, patient will have peritoneal dialysis today per it systems analyst consultant (2) Cardiorespiratory arrest: Code(s): I46.9 - Cardiac arrest, cause unspecified Status: Acute Assessment and Plan: after 1 round of epinephrine per protocol ROSC, (3) Aspiration pneumonia: Code(s): J69.0 - Pneumonitis due to inhalation of food and vomit Status: Acute Assessment and Plan: during suction bile was seen most likely patient had aspirated resulting in pneumonia (4) Atrial fibrillation: Code(s): I48.91 - Unspecified atrial fibrillation Status: Acute (5) Hyponatremia: Code(s): E87.1 - Hypo-osmolality and hyponatremia Status: Acute Assessment and Plan: rate is controlled (6) Abnormal computed tomography of abdomen and pelvis: Code(s): R93.5 - Abnormal findings on diagnostic imaging of other abdominal regions, including retroperitoneum Status: Acute Assessment and Plan: suspect peritonitis (7) Peritonitis (acute) generalized: Code(s): K65.0 - Generalized (acute) peritonitis Status: Acute Assessment and Plan: patient on peritoneal dialysis,patient is being treated with antibiotics Subjective Date/time seen: 10/18/19 12:10 patient is 78-year-old male with history of end-stage renal disease on peritoneal dialysis presented emergency department had a cardiac arrest ROSC after 1 round of epinephrine per protocol ROSC, with shortness of breath and hypoxic patient was intubated currently on vent, patient may have aspirated pneumonia, patient in septic shock and on pressor, patient being treated with Levaquin, vancomycin and Flagyl, discussed with grievance manager prognosis is poor we appreciate grievance manager, patient is seen by Dr. Aguilar nephrology for peritoneal dialysis, Dialysis Tech had spoken with patient's , she would like to keep full code and continue to treat the patient. septic shock resolved and patient is off Levophed, septic shock most likely secondary to aspiration pneumonia possibly peritonitis and treated with Flagyl cefepime and ceftazidime intraperitoneal by nephrology, today discussed with grievance manager patient is off sedation and attempt to wean the patient off ventilator however patient is not respond, will have CT scan of the head the further evaluate, patient will have peritoneal dialysis today per it systems analyst consultant Review of Systems Review of Systems: ROS unobtainable: Yes unobtainable due to endotracheal tube Exam Narrative: Exam Narrative: patient on vent and sedated Const: General: comfortable and no acute distress HENMT: Other: ET tube in place Eyes: General: appearance nor
[2019-10-18 12:52] LABS: Glucose Point of Care 357 (65-105)
[2019-10-18 17:48] LABS: Glucose Point of Care 295 (65-105)
[2019-10-18] MEDS: FAT EMULSIONS IV 20% 250 ML 20.8 ML IVPB (17:51)
[2019-10-18 19:26] LABS: Anion Gap 10.6 mmol/L (7-16); Blood Urea Nitrogen 31 mg/dL (9-20); Calcium 6.9 mg/dL (8.4-10.2); Carbon Dioxide 21 mmol/L (22-30); Chloride 96 mmol/L (98-107); Estimated CRCL calculation 8 ml/min; Estimated Glomerular Filt Rate 20; Glucose 266 mg/dL (75-110); Potassium 3.6 mmol/L (3.4-5.0); Sodium 124 mmol/L (137-145)
[2019-10-18] MEDS: INSULIN GLARGINE (*BKC) 100 UNITS/ML 8 UNITS SUB-Q (19:50)
[2019-10-19] VITALS (21 sets, daily range): BP systolic 88–131; BP diastolic 49–76; PULSE 90–113; RESP 16–22; TEMP 36.4–37.2; O2SAT 96–100
[2019-10-19 00:15] LABS: Glucose Point of Care 247 (65-105)
[2019-10-19] MEDS: INSULIN ASPART (*BKC) 100 UNITS/ML SUB-Q ×4 (00:17→17:58)
[2019-10-19] MEDS: metroNIDAZOLE 500 MG/ISO 100ML 500 MG/100 ML BAG 100 MG IVPB ×4 (00:18→17:58)
[2019-10-19 04:23] LABS: Alveolar/Arterial O2 Gradient 106.4 mmHg; Base Excess ABG -5.6 mEq/l (+/-2.0); Carboxyhemoglobin 0.3 % THb (0-2.0); Device VENTILATOR; Fractional Inspired Oxygen 30 %; HCO3 ABG 17.7 mEq/l (22.0-26.0); Methemoglobin ABG 0.4 %THb (0-1.5); Oxygen Saturation ABG 95.5 % (95.0-100.0); Oxyhemoglobin 94.1 % THb (90.0-100.0); PCO2 ABG 27.8 mmHg (35.0-45.0); PO2 ABG 74.8 mmHg (80.0-100.0); PO2 FiO2 Ratio Arterial Blood 2.49 %; Reduced Hemoglobin 5.2 %THb (0-5.0); Site Drawn LEFT BRACHIAL; Total Hemoglobin 10.5 g/dL (12.0-18.0); pH ABG 7.422 (7.350-7.450)
[2019-10-19 04:24] LABS: Arterial Blood Gas PEEP 5 cmH2O; Arterial Blood Gas Vent Mode ASV
[2019-10-19 05:43] LABS: Hemoglobin 9.2 g/dL (14.0-18.0); Mean Corpuscular HGB Conc 34.1 g/dl (32-36); Mean Corpuscular Hemoglobin 31.9 pg (26-34); Mean Corpuscular Volume 93.8 fl (80-100); Mean Platelet Volume 9.3 fl (7.4-10.4); Platelet Count Result 337 k/mm3 (150-375); Red Blood Count 2.88 M/mm3 (4.6-6.20); Red Cell Distribution Width 15.3 % (11.5-14.5)
[2019-10-19 05:53] LABS: Partial Thromboplastin Time 43.9 SECONDS (22.3-36.8)
[2019-10-19 05:55] LABS: Alanine Aminotransferase 14 U/L (4-50); Albumin Level 1.7 g/dL (3.5-5.1); Alkaline Phosphatase 114 U/L (38-126); Anion Gap 12.8 mmol/L (7-16); Aspartate Amino Transferase 26 U/L (17-59); Bilirubin,Total 0.2 mg/dL (0.2-1.3); Blood Urea Nitrogen 30 mg/dL (9-20); Calcium 7.1 mg/dL (8.4-10.2); Carbon Dioxide 19 mmol/L (22-30); Chloride 96 mmol/L (98-107); Estimated CRCL calculation 8 ml/min; Estimated Glomerular Filt Rate 19; Glucose 261 mg/dL (75-110); Magnesium 1.8 mg/dL (1.6-2.3); Phosphorus 2.3 mg/dL (2.5-4.5); Potassium 3.8 mmol/L (3.4-5.0); Sodium 124 mmol/L (137-145)
[2019-10-19 05:56] LABS: Lactic Acid 3.1 mmol/L (0.7-2.1)
[2019-10-19] MEDS: LEVOTHYROXINE SODIUM 75 MCG TABLET PO (06:22)
[2019-10-19 06:27] LABS: White Blood Count 52.8 K/mm3 (4.5-10.0)
[2019-10-19 06:30] LABS: Band Neutrophils Percent 4 % (0-6); Eosinophils Absolute Manual 0.52 K/mm3 (0.02-0.5); Eosinophils Percent Manual 1 % (0-4); Lymphocytes Absolute Manual 1.05 K/mm3 (1.1-4.5); Metamyelocytes Percent 1 %; Myelocytes Percent 1 %; Neutrophils Absolute Manual 50.16 K/mm3 (1.3-6.7); Neutrophils Percent Manual 91 % (46-73); Total Cells Counted 100
[2019-10-19 06:31] LABS: Hypochromasia 2+ (NORMAL); Platelet Estimate Adequate (Adequate); Polychromasia 1+ (NORMAL)
--- NOTE | 2019-10-19 08:47 | WPDINTPN ---
Progress Note: A&P Assessment and Plan (1) Septic shock: Code(s): A41.9 - Sepsis, unspecified organism; R65.21 - Severe sepsis with septic shock Status: Acute Assessment and Plan: RESOLVED: OFF LEVOPHED since 2:00 a.m. on 10/16/2019 - Septic shock likely due to aspiration pneumonia, colitis and positive pressure ventilation - is severe sepsis with WBC count of 52.8, lactic acid of 3.1. Blood pressures have been stable - CT scan of the abdomen and pelvis on 10/16 showed interval progression of patchy bilateral airspace disease, compatible pneumonia. Bilateral pleural effusions right greater than left moderate ascites which appears loculated the left upper abdomen, cannot exclude peritonitis, abdominal wall thickening suspicious for cystitis. peritoneal dialysis catheter present in the pelvis - Will will discontinue all antibiotics and start aztreonam and vancomycin, Infectious Disease has been consulted - will repeat Gram stain and culture of peritoneal fluid, discussed with Nephrology and he will be letting the laboratory mechanical technician send the fluid for culture and Gram stain - Ultrasound guided thoracentesis has been ordered but interventional radiology today, labs have been ordered - patient did have a bowel movement and does not have diarrhea to suggest C diff colitis. - 10/18/2019: Repeat blood cultures have been obtained and pending (2) Cardiorespiratory arrest: Code(s): I46.9 - Cardiac arrest, cause unspecified Status: Acute Assessment and Plan: PEA arrest likely due aspiration,ROSC after 1 round of epinephrine - post arrest pt was following commands and so did not require hypothermia protocol - trops elevated to 0.40 likely due to cardiac arrest (3) Aspiration pneumonia: Code(s): J69.0 - Pneumonitis due to inhalation of food and vomit Status: Acute Assessment and Plan: worsening chest x-ray likely related to aspiration pneumonia /pneumonitis - continue antibiotics as above - patient on mechanical ventilation With ASV peep of 5, 30% FiO2, ABGs adequate. - chest x-ray reviewed, CT scan of the abdomen and pelvis on 11/06/2019 showed worsening of the bilateral patchy infiltrates - currently off all sedation since 2:00 p.m. on 10/17/2019, patient does not open his eyes or follow simple commands - He has end-stage renal disease and probably sedatives he has received so far will take some time to get metabolized and excreted. no further workup for his altered mental status but if his mental status does not improve in the next 24-48 hours then we can have further workup done. - will have Neurology evaluate the patient for possible status epilepticus - CT of head on 10/18/2019 was negative for any acute intracranial pathology (4) Colitis: Code(s): K52.9 - Noninfective gastroenteritis and colitis, unspecified Status: Acute Assessment and Plan: patient presented with abdominal pain, nausea, vomiting and diarrhea, CT scan of the abdomen and pelvis on 10/13/2019 showed sigmoid colon wall thickening is consistent with colitis. Repeat CT abdomen pelvis on 11/06/2019 did not show any evidence of mesenteric ischemia. He does have ascites and 1 pocket of ascites seems to be loculated, possible peritonitis, bladder wall thickening suspicion for cystitis - continue antibiotics as above - patient on TPN - Resume tube feed and advanced it to his goal rate if he is able to tolerated. Will stop TPN once he is at his goal rate. - Surgery is following. (5) ESRD (end stage renal disease) on dialysis: Code(s): N18.6 - End stage renal disease; Z99.2 - Dependence on renal dialysis Status: Acute Assessment and Plan: patient with end-stage renal disease on peritoneal dialysis - peritoneal fluid cultures negative so far - discussed with Nephrology, peritoneal dialysis per Nephrology - potassium is stable - will repeat Gram stain and cultures of peritoneal f
[2019-10-19] MEDS: ACIDOPHILUS/BULGARICUS CHEWABLE TABLET 1 TABLET PO (08:58)
[2019-10-19] MEDS: CLOPIDOGREL BISULFATE 75 MG TABLET PO (08:58)
[2019-10-19] MEDS: GABAPENTIN 100 MG CAPSULE 200 MG PO (08:59)
[2019-10-19] MEDS: FLUTICASONE PROPIONATE 0.05% NA SPR 16 GM BTL (*BKC) 2 SPRAY NASAL (08:59)
[2019-10-19] MEDS: PRAVASTATIN SODIUM 20 MG TABLET 80 MG PO (09:00)
[2019-10-19] MEDS: SILVERGEL (ELTA) 45 ML 1 APPLIC TOPICAL (09:00)
[2019-10-19] MEDS: PANTOPRAZOLE SODIUM IV 40 MG VIAL IV PUSH ×2 (09:00→22:14)
[2019-10-19] MEDS: INSULIN GLARGINE (*BKC) 100 UNITS/ML 10 UNITS SUB-Q (09:01)
[2019-10-19 09:35] LABS: INR 2.6
[2019-10-19 09:46] LABS: Albumin Level 1.6 g/dL (3.5-5.1); Amylase 35 U/L (30-110); Bilirubin,Total 0.3 mg/dL (0.2-1.3); Glucose 264 mg/dL (75-110); Triglycerides 105 mg/dL (<150)
[2019-10-19 09:48] LABS: Cholesterol < 50 mg/dL (0-200)
--- NOTE | 2019-10-19 09:49 | WPDINFPN2 ---
Progress Note: A&P Assessment and Plan (1) Leukocytosis: Code(s): D72.829 - Elevated white blood cell count, unspecified Status: Acute Assessment and Plan: Leukocytosis, multiple potential causes -- Non infectious colitis, HCAP, cath-associated peritonitis, empyema, bacteremia from TLC. 2. CRF on CAPD 3. PCN intolerance REC Fluid analysis (repeat peritoneal, new pleura R). Pull TLC. BCs also in process. (antibiotic #7) Vanc #7, aztreo #1, adjust dosing of latter. The abdominal fluid has shown elev WBC consistently, and this may well be a reflection of his colitis and not catheter infection. Subjective Date/time seen: 10/19/19 09:49 Objective Data Vital Signs Vital Signs: Vital Signs - 24 hr 10/18/19 10:00 10/18/19 11:06 10/18/19 12:00 Temperature 36.4 C L Pulse Rate 103 H 102 H 101 H Respiratory Rate 15 15 Blood Pressure 114/70 121/79 Pulse Oximetry 100 100 100 10/18/19 13:40 10/18/19 14:00 10/18/19 16:00 Temperature 36.4 C L Pulse Rate 108 H 99 98 Respiratory Rate 15 15 Blood Pressure 90/60 L 110/51 L Pulse Oximetry 97 97 99 10/18/19 16:51 10/18/19 18:00 10/18/19 19:51 Temperature Pulse Rate 106 H 93 103 H Respiratory Rate 15 Blood Pressure 96/54 L Pulse Oximetry 100 99 98 10/18/19 20:00 10/18/19 22:00 10/18/19 22:56 Temperature 36.6 C Pulse Rate 99 102 H 102 H Respiratory Rate 15 22 H Blood Pressure 89/56 L 95/65 L Pulse Oximetry 100 98 99 10/19/19 00:00 10/19/19 00:16 10/19/19 01:41 Temperature 36.4 C 36.4 C Pulse Rate 110 H 110 H 102 H Respiratory Rate 20 20 Blood Pressure 88/55 L 88/55 L Pulse Oximetry 99 100 10/19/19 02:00 10/19/19 04:00 10/19/19 04:36 Temperature 36.6 C Pulse Rate 103 H 99 99 Respiratory Rate 17 16 Blood Pressure 90/56 L 107/63 Pulse Oximetry 99 99 98 10/19/19 06:00 08/03/20 08:16 Temperature Pulse Rate 96 100 Respiratory Rate 16 Blood Pressure 99/49 L Pulse Oximetry 99 99 Intake/Output Intake/Output: Intake & Output 10/16/19 10/17/19 10/18/19 10/19/19 23:59 23:59 23:59 23:59 Intake Total 2723.9 3019.767 2057 398 Output Total 206 1218 485 50 Balance 2517.9 3214.200 6218 348 Meds/Results Medications: Active Medications Generic Name Dose Route Start Last Admin Trade Name Freq PRN Reason Stop Dose Admin Bisacodyl 10 mg 10/14/19 17:03 10/16/19 17:51 Dulcolax Suppository RECTAL 10 mg QAM PRN Administration Constipation Clopidogrel Bisulfate 75 mg 10/16/19 09:00 10/19/19 08:58 Plavix PO 75 mg DAILY JOHNATHAN Administration Dextrose 12.5 gm 10/16/19 20:09 Dextrose 50% Syringe IV PUSH PRN PRN Hypoglycemia Protocol Fluticasone Propionate 2 spray 10/16/19 09:00 10/19/19 08:59 Flonase 0.05% Nasal [place] NASAL 2 spray DAILY JOHNATHAN Administration Gabapentin 200 mg 10/16/19 09:00 10/19/19 08:59 Neurontin PO 200 mg DAILY JOHNATHAN Administration Glucagon 1 mg 10/16/19 20:09 Glucagon For Inj IM PRN PRN Hypoglycemia Protocol Glucose 15 gm 10/16/19 20:09 Glutose 15 PO PRN PRN Hypoglycemia Protocol Heparin Sodium (Porcine) 5,000 units 10/14/19 22:00 10/19/19 06:17 Heparin Sodium SUB-Q Not Given Q8HR JOHNATHAN Metronidazole 500 mg in 100 mls @ 100 mls/hr 10/13/19 18:00 10/19/19 07:22 Flagyl 500 Mg/Iso Soln 100 Ml IVPB Infused Q6HR JOHNATHAN Infusion Dextrose 1,000 mls @ 50 mls/hr 10/15/19 13:12 Dextrose 10% IV CONT .Q20H PRN if PN is interrupted Dextrose 1,000 mls @ 100 mls/hr 10/16/19 20:09 Dextrose 5% 1,000 Ml IVPB PRN PRN Hypoglycemia Protocol Fat Emulsion Intravenous 250 mls @ 20.833 mls/hr 10/17/19 18:00 10/18/19 17:51 Lipids 20% IVPB 20.8 mls/hr Q24H JOHNATHAN Administration Multivitamins 5 ml/ Potassium 2,011.6667 mls @ 40 mls/hr 10/18/19 13:00 10/18/19 17:55 Phosphate 20 mmol/ Amino Acids IV CONT 40 mls/hr /Dextrose .Q24H JOHNATHAN
[2019-10-19] MEDS: AZTREONAM 2 GM in DEXTROSE 5% 100 ML IVPB (09:59)
--- NOTE | 2019-10-19 09:59 | PM.PNNEP ---
Progress Note: A&P Assessment and Plan (1) Peritonitis (acute) generalized: Code(s): K65.0 - Generalized (acute) peritonitis Status: Acute Assessment and Plan: the patient has peritonitis. CT scan shows no perforation. fluid is still cloudy. His white cell count is elevating. Repeat CT did not show much. It did not even mention colitis. Will repeat cell count and cultures today. I wonder if we need to change in antibiotics. Dr. aguilar is being consulted and we will see what he says. Since the blood white count is elevated I think he might need systemic antibiotics because peritoneal dialysis related peritonitis should not cause an elevation of white count. Discussed with Dr. Lopez (2) Colitis: Code(s): K52.9 - Noninfective gastroenteritis and colitis, unspecified Status: Acute Assessment and Plan: White count and lactate are up. Considering infection versus ischemic CT a negative for ischemia Dr. aguilar being consulted (3) Septic shock: Code(s): A41.9 - Sepsis, unspecified organism; R65.21 - Severe sepsis with septic shock Status: Acute Assessment and Plan: patient Has improved hemodynamically. Continue to remove fluid. sugars are high which slows the removal of fluid. Dr. Lopez is adjusting his insulin. Will use red bags tonight. (4) Hyponatremia: Code(s): E87.1 - Hypo-osmolality and hyponatremia Status: Acute Assessment and Plan: this is chronic. Try to limit free water intake. sodium is low but stable. Will give a small dose of 3% saline to bring the Sodium Op. (5) Aspiration pneumonia: Code(s): J69.0 - Pneumonitis due to inhalation of food and vomit Status: Acute Assessment and Plan: Patient had nausea and vomiting and aspirated. He is getting pulmonary toilet and supportive care. (6) Atrial fibrillation, new onset: Code(s): I48.91 - Unspecified atrial fibrillation Status: Acute Assessment and Plan: Patient has atrial fibrillation. Heart rate is well controlled In the 90s (7) ESRD (end stage renal disease) on dialysis: Code(s): N18.6 - End stage renal disease; Z99.2 - Dependence on renal dialysis Status: Acute Assessment and Plan: he will get peritoneal dialysis tonight . He needs more fluid off so will use 4.25% Dianeal. Between that and no higher dose of insulin we should get more fluid off. (8) Urinary tract infection: Qualifiers: Hematuria presence: with hematuria Urinary tract infection type: site unspecified Qualified Code(s): N39.0 - Urinary tract infection, site not specified; R31.9 - Hematuria, unspecified Code(s): N39.0 - Urinary tract infection, site not specified Status: Acute Assessment and Plan: urine culture negative. Subjective Date/time seen: 10/19/19 09:59 Interval history: Patient is sedated and on the ventilator. Patient is off sedatives and is not responsive. Comfortable. Review of Systems Review of Systems: ROS unobtainable: Yes unobtainable due to endotracheal tube and unobtainable due to medical condition Exam Narrative: Exam Narrative: Exam Narrative: Well developed well-nourished gentleman lying in the ICU bed on the ventilator. He is sedated. Skin No rash Head normocephalic atraumatic Lungs symmetric and coarse bilaterally. Heart irregular rate and rhythm without rub or gallop Abdomen bowel sounds absent. It seems less firm today.. Mildly tender But hard to say. Extremities 1+ presacral edema still. Objective Data Vital Signs Vital Signs: Vital Signs - 24 hr 10/18/19 10:00 10/18/19 11:06 10/18/19 12:00 Temperature 36.4 C L Pulse Rate 103 H 102 H 101 H Respiratory Rate 15 15 Blood Pressure 114/70 121/79 Pulse Oximetry 100 100 100 10/18/19 13:40 10/18/19 14:00 10/18/19 16:0
[2019-10-19 10:09] LABS: Lactate Dehydrogenase 523 U/L (313-618)
--- NOTE | 2019-10-19 11:07 | PCDIET ---
ICU Rounding Note: Pt current nutrition is Nepro @ 10ml/hr + Clinimix 5/15 at 40ml/hr +250ml 20% lipids. Nutrition recommendation: Agree with TPN-Increase Nepro to 15ml/hr Last recorded weight is 77.1kg (up from 74.8kg) Bowel Motility: none (passing flatus) Labs Reviewed:WBC 52.8kg, Protein 4.0, Albumin 1.7, Na 124, PO4 2.3 GFR 19, Glucose 261 Meds Noted:Vanc, Flagyl, Lactobacillus, Insulin, Concentrated saline, Dulcolax Additional Notes: Pt off all sedation, but not responding. Na 124, plans to increase fluid removal via dialysis as well as concentrated Na solution. Nepro at 10ml/hr with 140ml residual. Plans to increase 5ml to 15ml/hr. Current nutrition of EN+TNP is 1449ml free water, 74g protein, 1776 kcals, meeting 100% of needs. Recommend as EN increases to goal of 35ml/hr, TPN decreases. Following daily in ICU rounds. Assessing/reassessing q T/F.
[2019-10-19] MEDS: LIDOCAINE HCL 1% LOCAL INJ 2 ML AMPUL 5 ML INFILTRATE (11:30)
--- NOTE | 2019-10-19 12:15 | PM.IMPN ---
Progress Note: A&P Assessment and Plan (1) Septic shock: Code(s): A41.9 - Sepsis, unspecified organism; R65.21 - Severe sepsis with septic shock Status: Acute Assessment and Plan: 10/19/19 12:15 patient is 78-year-old male with history of end-stage renal disease on peritoneal dialysis presented emergency department had a cardiac arrest ROSC after 1 round of epinephrine per protocol ROSC, with shortness of breath and hypoxic patient was intubated currently on vent, patient may have aspirated pneumonia, patient in septic shock and on pressor, patient being treated with Levaquin, vancomycin and Flagyl, discussed with cold roll operator prognosis is poor we appreciate cold roll operator, patient is seen by Dr. Aguilar nephrology for peritoneal dialysis, Payment Processor had spoken with patient's , she would like to keep full code and continue to treat the patient. septic shock resolved and patient is off Levophed, septic shock most likely secondary to aspiration pneumonia possibly peritonitis and treated with Flagyl cefepime and ceftazidime intraperitoneal by nephrology, patient is his leukocytosis etiology uncertain seen by Dr. Rowe and cold roll operator, stopped although antibiotic and has started the patient vancomycin and aztreonam, workup is in progress patient clinically on vent, patient's is present in the room. (2) Cardiorespiratory arrest: Code(s): I46.9 - Cardiac arrest, cause unspecified Status: Acute Assessment and Plan: after 1 round of epinephrine per protocol ROSC, (3) Aspiration pneumonia: Code(s): J69.0 - Pneumonitis due to inhalation of food and vomit Status: Acute Assessment and Plan: during suction bile was seen most likely patient had aspirated resulting in pneumonia (4) Atrial fibrillation: Code(s): I48.91 - Unspecified atrial fibrillation Status: Acute (5) Hyponatremia: Code(s): E87.1 - Hypo-osmolality and hyponatremia Status: Acute Assessment and Plan: rate is controlled (6) Abnormal computed tomography of abdomen and pelvis: Code(s): R93.5 - Abnormal findings on diagnostic imaging of other abdominal regions, including retroperitoneum Status: Acute Assessment and Plan: suspect peritonitis (7) Peritonitis (acute) generalized: Code(s): K65.0 - Generalized (acute) peritonitis Status: Acute Assessment and Plan: patient on peritoneal dialysis,patient is being treated with antibiotics Subjective Date/time seen: 10/19/19 12:15 patient is 78-year-old male with history of end-stage renal disease on peritoneal dialysis presented emergency department had a cardiac arrest ROSC after 1 round of epinephrine per protocol ROSC, with shortness of breath and hypoxic patient was intubated currently on vent, patient may have aspirated pneumonia, patient in septic shock and on pressor, patient being treated with Levaquin, vancomycin and Flagyl, discussed with cold roll operator prognosis is poor we appreciate cold roll operator, patient is seen by Dr. Aguilar nephrology for peritoneal dialysis, Payment Processor had spoken with patient's , she would like to keep full code and continue to treat the patient. septic shock resolved and patient is off Levophed, septic shock most likely secondary to aspiration pneumonia possibly peritonitis and treated with Flagyl cefepime and ceftazidime intraperitoneal by nephrology, patient is his leukocytosis etiology uncertain seen by Dr. Rowe and cold roll operator, stopped although antibiotic and has started the patient vancomycin and aztreonam, workup is in progress patient clinically on vent, patient's is present in the room. Review of Systems Review of Systems: ROS unobtainable: Yes unobtainable due to endotracheal tube Exam Const: General: comfortable and no acute distress HENMT: General nose exam: Normal nares present Other: ET tube in Neck: Other: no retraction Resp:
[2019-10-19 12:41] LABS: Glucose Point of Care 343 (65-105)
--- NOTE | 2019-10-19 13:41 | CONS_ITS ---
DATE OF CONSULTATION: 10/19/2019 REASON FOR CONSULTATION: Leukocytosis. HISTORY OF PRESENT ILLNESS: The patient is a 78-year-old male who cannot provide any history as he is intubated. He has chronic renal failure with a PD catheter in place. He was admitted multiple times recently including from the until September 22. He had abdominal pain at that time. This quickly resolved and he was discharged. He returned to the hospital on the with abdominal pain once again. CT demonstrated sigmoid wall thickening. Shortly after arrival, he suffered sinus bradycardia arrest followed by absent pulse. He received CPR. Large amount of creamy particulate matter was aspirated from the ET tube. He had recovery in his neurologic status. His rhythm was rapid atrial fibrillation followed by ventricular tachycardia. He had a right femoral central line placed, which remains in place now 6 days later. He remains on the ventilator. He has not required any surgical intervention. He has had multiple samples of peritoneal fluid sent for analysis, results as below. Due to concern over pneumonia, he has been given at various times while here vancomycin IV, ceftazidime IV, ceftazidime intraperitoneal, and now aztreonam plus metronidazole and vancomycin continues. The patient has had recovery in his blood pressure and is not on any pressors. He is on TPN. He has had persistent worsening leukocytosis and consultation requested. ALLERGIES: PENICILLINS CAUSES HIGH FEVER AND LETHARGY BY PATIENT REPORT. HE HAS TOLERATED CEPHALOSPORINS. PRESENT MEDICATIONS: No immunosuppressants at any time. HABITS: Quit smoking a number of years ago in the 1970s. No alcohol. No illicit drugs. PAST MEDICAL HISTORY: TURP in late August for urinary retention, catheter present postop. 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 REVIEW OF SYSTEMS: 14-point review attempted, not obtainable from the patient due to intubated status, reviewed on the record otherwise. SOCIAL HISTORY: He is . His is not at the bedside. Lives in [place]. [place] and retired ironing worker. FAMILY HISTORY: Not pertinent to his present illness. PHYSICAL EXAM: GENERAL: Elderly male who appears actual age. No acute distress. He has TPN ongoing. No other drips. He had some hypothermia on hospital day #3, otherwise afebrile. VITAL SIGNS: 96, 16, 99% on the noted ventilator settings. FiO2 30%. SKIN: He has some abrasions over the left upper arm and the left heel area without evidence of cellulitis. He has no rashes. Warm and dry. NODES: He has no axillary or cervical adenopathy. EENT: Ophthalmic ointment makes exam of his conjunctivae nearly impossible. He has no paranasal sinus erythema, edema, or tenderness. Brief inspection of the conjunctivae is normal. The oropharynx and oral mucosa appear normal, although compromised exam from his ET tube. Teeth appear in good repair. NECK: There is no meningismus. No masses. Nontender. LUNGS: He has rales throughout the left lung field. Breath sounds are vesicular. Diminished breath sounds on the right. CARDIAC: Regular rate and rhythm. No murmur, gallop, or rub. Pulses are 1+ and equal. ABDOMEN: Distended. Hypoactive bowel sounds. No tenderness is apparent. No masses. He has a PD catheter, left mid abdomen without drainage. He has a right femoral triple-lumen catheter without erythema or drainage.
[2019-10-19] MEDS: CENTRAL LINE FLUSH 10 ML IV PUSH ×3 (15:13→22:18)
[2019-10-19] MEDS: HEPARIN SODIUM 5,000 UNITS/ML VIAL 5000 UNITS SUB-Q ×2 (15:13→22:14)
--- NOTE | 2019-10-19 15:33 | PM.PNGS ---
Progress Note: A&P Assessment and Plan (1) Peritonitis (acute) generalized: Code(s): K65.0 - Generalized (acute) peritonitis Status: Acute Assessment and Plan: Patient with recent possible peritonitis. Peritoneal fluid sent for culture and smear. Smear shows reactive mesothelial cells and acute inflammation. Gram stain showed many WBC, no organisms. Cultures showing no growth. Nephrology has been consulted and their recommendations are noted. He is receiving Fortaz through his peritoneal catheter for treatment. Continue broad-spectrum IV antibiotics for possible colitis seen on CT and monitor labs. The colitis was no worse on his recent CT scan of the abdomen and pelvis Saturday. Since it appears this peritonitis may or may not be related to his peritoneal dialysis (which with his recent history is more likely), but there is some chance that it is from translocation of bacteria for the colitis seen on his abd/pelvic CT done on admission. At this time I do not believe a surgical intervention is needed. (2) Cardiorespiratory arrest: Code(s): I46.9 - Cardiac arrest, cause unspecified Status: Acute Assessment and Plan: Cardiorespiratory arrest on the night of admission was felt to possibly be due to aspiration. Patient now intubated and sedated in the ICU. Management and wean vent per Wet Process Miller Head Assistant. (3) Septic shock: Code(s): A41.9 - Sepsis, unspecified organism; R65.21 - Severe sepsis with septic shock Status: Acute Assessment and Plan: Likely secondary to aspiration pneumonia vs. colitis. Blood cultures NGTD. Continue broad-spectrum IV abx. Management per Wet Process Miller Head Assistant and primary service. (4) Aspiration pneumonia: Code(s): J69.0 - Pneumonitis due to inhalation of food and vomit Status: Acute Assessment and Plan: Continue IV antibiotics per primary service. (5) Colitis: Code(s): K52.9 - Noninfective gastroenteritis and colitis, unspecified Status: Acute Assessment and Plan: Sigmoid colitis found on CT scan.. Possibility of sigmoid diverticulitis. No evidence of perforation on imaging by CT. Continue IV antibiotics. Currently NPO, intubated, and sedated. Agree with trying to feeding. (6) Cholelithiasis: Code(s): K80.20 - Calculus of gallbladder without cholecystitis without obstruction Status: Acute Assessment and Plan: Cholelithiasis noted on CT and ultrasound. No evidence of acute cholecystitis. We do not believe this is the cause of his abdominal pain or leukocytosis. No indication for surgical intervention at this time. (7) Atrial fibrillation, new onset: Code(s): I48.91 - Unspecified atrial fibrillation Status: Acute Assessment and Plan: New onset a. fib in the ER. Cardiac arrest overnight and was apparently in a. fib RVR at some point. Now currently in sinus rhythm. Could consider Cardiology consult. Management per primary service. (8) Urinary tract infection: Qualifiers: Hematuria presence: with hematuria Urinary tract infection type: site unspecified Qualified Code(s): N39.0 - Urinary tract infection, site not specified; R31.9 - Hematuria, unspecified Code(s): N39.0 - Urinary tract infection, site not specified Status: Acute Assessment and Plan: Urine culture showed no growth. Continue IV antibiotics. Management per Hospitalist service. (9) Antiplatelet or antithrombotic long-term use: Code(s): Z79.02 - FPC (current) use of antithrombotics/antiplatelets Status: Acute Assessment and Plan: When able to take it again may resume Plavix now since no surgical intervention planned. (10) Chronic hyponatremia: Code(s): E87.1 - Hypo-osmolality and hyponatremia Status: Acute Assessment and Plan: Still has a very low sodium. (11) History of bladder cancer: Code(s): Z85.51 - Personal history of malignant neoplasm of b
[2019-10-19 17:35] LABS: Glucose Point of Care 314 (65-105)
[2019-10-19] MEDS: FAT EMULSIONS IV 20% 250 ML 20.8 ML IVPB (17:58)
--- NOTE | 2019-10-19 20:01 | CONS_ITS ---
DATE OF CONSULTATION: HISTORY OF PRESENT ILLNESS: This 78 years old was admitted to the hospital through the emergency room for the complaint of abdominal pain of 72 hours duration in addition to the end-stage renal disease for which patient has been on peritoneal dialysis. He was unable to finish his dialysis night before because of the continual complaint of pain along with the vomiting with no associated fever, but in addition to the underlying multiple medical conditions as outlined, particularly arthritis, anemia of chronic disease, coronary artery disease with history of stenting, diabetic peripheral neuropathy with end-stage renal disease, for which he is on peritoneal dialysis, glaucoma, hearing loss, hyperlipidemia, hypertension, hypothyroidism, and insulin-dependent diabetes mellitus. He has undergone amputation of the 5th toe of the right foot, has undergone stent placement, surgical removal of skin lesion from the top of the head and the face, transurethral resection of the bladder lesion, vascular surgery of the right lower extremity with placement of 4 stents in each leg and history of cataract extraction. Neuro consultation has been obtained because the patient has been unresponsive. Pertinent investigations at this particular time include the chest x-ray with left internal jugular central venous catheter distal tip near the superior cavoatrial junction, but no other changes. Head CT scan done yesterday negative for the epidural subdural bleed and no intracranial lesion. CBC with severe leukocytosis at WBC 52.8, hemoglobin 9.2, and the platelet count of 337. INR 2.6, APTT 27. Potassium 3.8, sodium only 24, chloride 96, CO2 of 19, BUN 30, creatinine 3.2, GFR only 19, glucose 261, and lactic acid 3.1 with calcium 7.1 and phosphorus 2.3, total protein 4 with albumin only 1.6. Cultures are pending except the stool culture. At this stage, the patient is receiving IV fluids along with metronidazole 500 mg IV piggyback q.6 hours, aztreonam 1 g IV piggyback daily along with his regular medications. PHYSICAL EXAMINATION: GENERAL: He is in no obvious acute distress. TPN is ongoing. VITAL SIGNS: Pulse 80, respirations 16, blood pressure 130/70, pulse ox 99% on FiO2 of 30%. SKIN: Normal with no specific rash though a couple of abrasions without evidence of cellulitis. NECK: There is no evidence of cervical adenopathy. Neck is supple with no meningeal signs. HEENT: Ears, nose, throat examination is difficult. There is no nystagmus at rest. HEART: Regular with no murmur. LUNGS: Clear with occasional rhonchi. ABDOMEN: Soft. No organomegaly. Has a PD catheter in the left mid abdomen without drainage and also right femoral triple-lumen catheter. NEUROLOGICAL: He is unresponsive to verbal command at this particular time. Pupils sluggish. Extraocular movements to dolls, are intact. Face symmetrical. Tongue in the oral cavity. Motor examination revealed no spontaneous muscle activity. Reflexes sluggish. Plantars are questionable. IMPRESSION: History of multiple medical problems as mentioned above with change in mental status. We will obtain the EEG and further recommendation accordingly. He has undergone the most recent CT scan on 10/17, which was negative. Further recommendations will be made according to the EEG results. AGUSTINA RAY M.D. FILM CRITIC FILM CRITIC D I MT: Cliff HARRIS
[2019-10-19] MEDS: INSULIN GLARGINE (*BKC) 100 UNITS/ML 22 UNITS SUB-Q (22:16)
[2019-10-19 22:24] LABS: Glucose Point of Care 269 (65-105)
[2019-10-20] VITALS (23 sets, daily range): BP systolic 93–138; BP diastolic 56–96; PULSE 92–116; RESP 16–25; TEMP 36.3–37; O2SAT 95–100
[2019-10-20 00:32] LABS: Glucose Point of Care 283 (65-105)
[2019-10-20] MEDS: INSULIN ASPART (*BKC) 100 UNITS/ML SUB-Q ×3 (00:35→17:44)
[2019-10-20] MEDS: metroNIDAZOLE 500 MG/ISO 100ML 500 MG/100 ML BAG 100 MG IVPB ×4 (00:35→17:39)
[2019-10-20 01:43] LABS: Source Peritoneal Fluid Peritoneal Fluid
[2019-10-20 01:44] LABS: Appearance Peritoneal Fluid Cloudy (Clear); Color Peritoneal Fluid Yellow (Colorless); Lymphocytes Peritoneal Fluid 5 %; Monocytes Peritoneal Fluid 2 %; Neutrophils Peritoneal Fluid 93 % (0-25); Nucleated Cells Peritoneal Flu 9739 /uL (0-500); RBC Peritoneal Fluid 0 /uL (0-100000)
[2019-10-20 06:16] LABS: Glucose Point of Care 386 (65-105)
[2019-10-20] MEDS: HEPARIN SODIUM 5,000 UNITS/ML VIAL 5000 UNITS SUB-Q (06:19)
[2019-10-20] MEDS: LEVOTHYROXINE SODIUM 75 MCG TABLET PO (06:20)
[2019-10-20] MEDS: CENTRAL LINE FLUSH 10 ML IV PUSH ×4 (06:25→17:47)
[2019-10-20 06:33] LABS: Phosphorus 2.1 mg/dL (2.5-4.5)
[2019-10-20 07:03] LABS: INR 2.5; Prothrombin Time 26.5 Seconds (11.1-14.7)
[2019-10-20 07:04] LABS: Partial Thromboplastin Time 45.9 SECONDS (22.3-36.8)
--- NOTE | 2019-10-20 08:09 | PM.PNGS ---
Progress Note: A&P Assessment and Plan (1) Peritonitis (acute) generalized: Code(s): K65.0 - Generalized (acute) peritonitis Status: Acute Assessment and Plan: Patient with recent possible peritonitis. Peritoneal fluid sent for culture and smear. Smear shows reactive mesothelial cells and acute inflammation. Gram stain showed many WBC, no organisms.( this is true again today on peritoneal fluid sent most recently) Cultures showing no growth on tests done at admission and the repeat is still pending this AM. Nephrology has been consulted and their recommendations are noted. He is receiving Fortaz through his peritoneal catheter for treatment. Continue broad-spectrum IV antibiotics for possible colitis seen on CT and monitor labs. The colitis was no worse on his recent CT scan of the abdomen and pelvis Saturday. Since it appears this peritonitis may or may not be related to his peritoneal dialysis (which with his recent history is more likely), but there is some chance that it is from translocation of bacteria from the colitis seen on his abd/pelvic CT done on admission. Had yesterday high went to Radiology and thoroughly reviewed the patient's CT scans. There is no actual loculated area of fluid collection that has any other attenuation levels different than that surrounding the peritoneal dialysis catheter in his pelvis. Therefore there is no obvious separate walled-off abscess within the abdomen. I discussed this with Dr. Yessica haider today. I believe if if the cultures sent in the last 2 days from his peritoneal dialysis fluid comes back positive that perhaps it is castañeda to abandon peritoneal dialysis if we are going to continue to pressed for with full treatment. (Patient undergoing EEG today and this may affect his code status). If blood cultures come back negative from the peritoneal fluid I would suggest we consider placement of a tunneled hemodialysis catheter once we know blood cultures were negative, and then diagnostic laparoscopy with a peritoneal washout and removal of the current peritoneal dialysis catheter which could be a source of colonization within the abdomen since the foreign body. Vasiliy cabrera will review these things with Nephrology and come up with a plan. If peritoneal dialysis cultures come back negative perhaps we can continue with the current plan and he does not need the above, if ID agrees. (2) Cardiorespiratory arrest: Code(s): I46.9 - Cardiac arrest, cause unspecified Status: Acute Assessment and Plan: Cardiorespiratory arrest on the night of admission was felt to possibly be due to aspiration. Patient now intubated and sedated in the ICU. Management and wean vent per Advertising Statistical Clerk. (3) Septic shock: Code(s): A41.9 - Sepsis, unspecified organism; R65.21 - Severe sepsis with septic shock Status: Acute Assessment and Plan: Likely secondary to aspiration pneumonia vs. colitis. Blood cultures NGTD. Continue broad-spectrum IV abx. Management per Advertising Statistical Clerk and primary service. (4) Aspiration pneumonia: Code(s): J69.0 - Pneumonitis due to inhalation of food and vomit Status: Acute Assessment and Plan: Continue IV antibiotics per primary service. (5) Colitis: Code(s): K52.9 - Noninfective gastroenteritis and colitis, unspecified Status: Acute Assessment and Plan: Sigmoid colitis found on CT scan.. Possibility of sigmoid diverticulitis. No evidence of perforation on imaging by CT. Continue IV antibiotics. Currently NPO, intubated, and sedated. Agree with trying tube feeding. Will check on what is patient's goal rate for this and if he is up to it consider stopping IV TPN. (6) Cholelithiasis: Code(s): K80.20 - Calculus of gallbladder without cholecystitis without obstruction Status: Acute Assessment and Plan: Cholelithiasis noted on CT and ultrasound. No evidence of acute cholecystitis. We do
[2019-10-20 08:19] LABS: Alveolar/Arterial O2 Gradient 115.9 mmHg; Base Excess ABG -7.1 mEq/l (+/-2.0); Fractional Inspired Oxygen 30 %; HCO3 ABG 16.6 mEq/l (22.0-26.0); Modified Allen's Test Pass; Oxygen Content ABG 13.2 %vol (16.0-22.0); Oxygen Saturation ABG 93.1 % (95.0-100.0); Oxyhemoglobin 91.7 % THb (90.0-100.0); PCO2 ABG 27.9 mmHg (35.0-45.0); PO2 ABG 65.2 mmHg (80.0-100.0); PO2 FiO2 Ratio Arterial Blood 2.17 %; Site Drawn RIGHT RADIAL; Total Hemoglobin 10.2 g/dL (12.0-18.0); pH ABG 7.393 (7.350-7.450)
[2019-10-20 08:20] LABS: Arterial Blood Gas PEEP 5 cmH2O; Arterial Blood Gas Vent Mode ASV; Device VENTILATOR
[2019-10-20 08:28] LABS: Hematocrit 26.6 % (42.0-52.0); Hemoglobin 8.6 g/dL (14.0-18.0); Mean Corpuscular HGB Conc 32.3 g/dl (32-36); Mean Corpuscular Hemoglobin 31.3 pg (26-34); Mean Corpuscular Volume 96.7 fl (80-100); Mean Platelet Volume 10.6 fl (7.4-10.4); Platelet Count Result 229 k/mm3 (150-375); Red Blood Count 2.75 M/mm3 (4.6-6.20); Red Cell Distribution Width 15.9 % (11.5-14.5); White Blood Count 45.4 K/mm3 (4.5-10.0)
[2019-10-20] MEDS: SILVERGEL (ELTA) 45 ML 1 APPLIC TOPICAL (08:28)
[2019-10-20] MEDS: FLUTICASONE PROPIONATE 0.05% NA SPR 16 GM BTL (*BKC) 2 SPRAY NASAL (08:28)
[2019-10-20] MEDS: AZTREONAM 1 GM in DEXTROSE 5% IN WATER 50 ML IVPB (08:32)
[2019-10-20] MEDS: PANTOPRAZOLE SODIUM IV 40 MG VIAL IV PUSH ×2 (08:33→21:29)
[2019-10-20] MEDS: PRAVASTATIN SODIUM 20 MG TABLET 80 MG PO (08:37)
[2019-10-20] MEDS: GABAPENTIN 100 MG CAPSULE 200 MG PO (08:37)
[2019-10-20] MEDS: ACIDOPHILUS/BULGARICUS CHEWABLE TABLET 1 TABLET PO (08:37)
[2019-10-20 08:40] LABS: Alanine Aminotransferase 19 U/L (4-50); Albumin Level 1.6 g/dL (3.5-5.1); Alkaline Phosphatase 123 U/L (38-126); Anion Gap 13.2 mmol/L (7-16); Aspartate Amino Transferase 43 U/L (17-59); Bilirubin,Total 0.2 mg/dL (0.2-1.3); Blood Urea Nitrogen 31 mg/dL (9-20); Calcium 7.1 mg/dL (8.4-10.2); Carbon Dioxide 18 mmol/L (22-30); Chloride 93 mmol/L (98-107); Estimated CRCL calculation 17 ml/min; Estimated Glomerular Filt Rate 20; Glucose 421 mg/dL (75-110); Magnesium 1.6 mg/dL (1.6-2.3); Potassium 3.2 mmol/L (3.4-5.0); Sodium 121 mmol/L (137-145)
[2019-10-20 08:54] LABS: Band Neutrophils Percent 26 % (0-6); Eosinophils Absolute Manual 1.36 K/mm3 (0.02-0.5); Eosinophils Percent Manual 3 % (0-4); Lymphocytes Absolute Manual 1.81 K/mm3 (1.1-4.5); Monocytes Absolute Manual 1.36 K/mm3 (0.1-0.90); Monocytes Percent Manual 3 % (3-9); Neutrophils Absolute Manual 40.86 K/mm3 (1.3-6.7); Neutrophils Percent Manual 64 % (46-73); Total Cells Counted 100
[2019-10-20 08:56] LABS: Hypochromasia 2+ (NORMAL); Platelet Estimate Adequate (Adequate); Polychromasia 1+ (NORMAL)
--- NOTE | 2019-10-20 10:18 | PM.PNNEP ---
Progress Note: A&P Assessment and Plan (1) Peritonitis (acute) generalized: Code(s): K65.0 - Generalized (acute) peritonitis Status: Acute Assessment and Plan: the patient has peritonitis. CT scan shows no perforation. fluid is still cloudy. Getting Fortaz and vancomycin intraperitoneally. His peripheral white cell count is still high but a little bit lower than yesterday. Repeat CT did not show much. It did not even mention colitis. Repeat white cell count is much higher again. This is in spite of intraperitoneal and systemic antibiotics. Gram stain shows no organisms. Culture is pending. I talked with and noted the surgery note. An EEG is going to be done. If this does not show something ominous than I would agree with having the peritoneal dialysis catheter removed. I put a call in to Dr. aguilar. (2) Colitis: Code(s): K52.9 - Noninfective gastroenteritis and colitis, unspecified Status: Acute Assessment and Plan: Considering infection versus ischemic CT a negative for ischemia Dr. aguilar being consulted (3) Septic shock: Code(s): A41.9 - Sepsis, unspecified organism; R65.21 - Severe sepsis with septic shock Status: Acute Assessment and Plan: On no pressors. White count still high. (4) Hyponatremia: Code(s): E87.1 - Hypo-osmolality and hyponatremia Status: Acute Assessment and Plan: this is chronic. Try to limit free water intake. sodium is low but stable. He received a small dose of 3% saline on Saturday. Will re-dose this today. (5) Aspiration pneumonia: Code(s): J69.0 - Pneumonitis due to inhalation of food and vomit Status: Acute Assessment and Plan: Patient had nausea and vomiting and aspirated. He is getting pulmonary toilet and supportive care. (6) Atrial fibrillation, new onset: Code(s): I48.91 - Unspecified atrial fibrillation Status: Acute Assessment and Plan: Patient has atrial fibrillation. Heart rate is well controlled in the 90s (7) ESRD (end stage renal disease) on dialysis: Code(s): N18.6 - End stage renal disease; Z99.2 - Dependence on renal dialysis Status: Acute Assessment and Plan: he will get peritoneal dialysis tonight . Not much fluid came off with the 4.25% Dianeal. He may do better on hemodialysis. (8) Urinary tract infection: Qualifiers: Hematuria presence: with hematuria Urinary tract infection type: site unspecified Qualified Code(s): N39.0 - Urinary tract infection, site not specified; R31.9 - Hematuria, unspecified Code(s): N39.0 - Urinary tract infection, site not specified Status: Acute Assessment and Plan: urine culture negative. Subjective Date/time seen: 10/20/19 10:18 Interval history: Patient is on the ventilator. Patient is off sedatives for 72 hours and is still not responsive. Comfortable. Review of Systems Review of Systems: ROS unobtainable: Yes unobtainable due to medical condition Exam Narrative: Exam Narrative: Exam Narrative: Well developed well-nourished gentleman lying in the ICU bed on the ventilator. He is sedated. Skin No rash or subcu nodules Head normocephalic atraumatic Lungs symmetric and coarse bilaterally. Heart irregular rate and rhythm without rub or gallop Abdomen bowel sounds absent. soft. Extremities 1+ presacral edema still. Objective Data Vital Signs Vital Signs: Vital Signs - 24 hr 10/19/19 11:05 10/19/19 12:00 10/19/19 14:00 Temperature 36.6 C Pulse Rate 96 103 H 97 Respiratory Rate 16 20 Blood Pressure 131/52 L 90/53 L Pulse Oximetry 99 100 99 10/19/19 14:13 10/19/19 16:00 10/19/19 16:55 Temperature 36.6 C Pulse Rate 92 97 99 Respiratory Rate 18 Blood Pressure 113/58 L Pulse Oximetry 99 100 100 10/19/19 18:00 10/18
--- NOTE | 2019-10-20 11:17 | PCDIET ---
ICU Rounding Note: Pt current nutrition is Nepro at 15m/hr+TNP 5/15+250ml 20% lipids at 40ml/hr providing 1449ml free water, 74g protein, 1776 kcals, meeting 100% of needs. Nutrition recommendation: Increase Nepro to goal of 25ml/hr and decrease TPN to 30ml/hr Last recorded weight is 79.1kg (77.1kg yesterday-pt is holding on to a lot of fluid) Bowel Motility: No BM yet, dulcolax on board-pt may benefit from reglan Labs Reviewed:Glucose 421, Phos 2.1, K 3.2, Na 121, WBC 45.4 Meds Noted:Heparin, Albumin, Insulin, Dulcolax, Synthroid, Flagyl, Protonix Additional Notes: Pt tolerating EN of Nepro at 15ml/hr with 20ml residual. Plans to increase to 25m/hr today to provide 990 kcals, 44g protein, and 400ml of free water over 22 hrs. Recommend decreasing clinimix 5/15 +250ml lipids to 30ml/hr to provide 1011 kcals, 36g protein, and 970ml of free water. Together this will meet 100% of pt needs. If pt tolerates well, recommend increasing EN to goal of 35m/hr tomorrow, with d/c of TPN. Pt off of all sedation, not following commands. EEG planned today. Left toe ulcer healing well. Possible plan to switch to HD to enable more fluid removal vs peritoneal dialysis. Following daily in ICU rounds. Assessing/reassessing q T/F.
[2019-10-20] MEDS: SODIUM CHLORIDE 3% 500 ML 40 ML IV CONT (12:13)
[2019-10-20] MEDS: ALBUMIN HUMAN 25% 12.5 GM/50ML 50 ML IVPB ×2 (12:23→17:53)
--- NOTE | 2019-10-20 12:45 | NEURO_ITS ---
TEST: ELECTROENCEPHALOGRAM DIAGNOSIS: ENCEPHALOPATHY PATIENT NUMBER: [id number] EEG NUMBER: [id number] RECORDING DATE: 10/20/19 CLINICAL HISTORY: Patient coded a couple of days ago and has remained in a coma without any sedation. CONDITION OF RECORDING: Comatose EEG DESCRIPTION: There are no definable alpha rhythms noted. Instead the record consists of delta and occasional theta activity throughout the tracing. Muscle artifacts after deep pain stimuli are noted. No epileptiform discharges are seen, no focal slowing is noted and no lateralizing features are seen. No burst suppression patterns seen. Nonparoxysmal. Nonfocal. Nonlateralizing. IMPRESSION: Significantly abnormal record due to absence of background rhythms and the presence of symmetrical bilateral significant slowing. These findings are consistent with the clinical diagnosis of status post cardiorespiratory arrest resulting in bi-hemispheric dysfunction which in this clinical situation is related to multiple factors. Additional Comment: This record was reviewed earlier and findings were communicated to the attending soil fertility extension specialist. STEVEN
[2019-10-20 13:25] LABS: Glucose Point of Care 446 (65-105)
[2019-10-20] MEDS: INSULIN ASPART (*BKC) 100 UNITS/ML 10 UNITS SUB-Q (13:31)
--- NOTE | 2019-10-20 14:04 | WPDINTPN ---
Progress Note: A&P Assessment and Plan (1) Encephalopathy: Code(s): G93.40 - Encephalopathy, unspecified Status: Acute Assessment and Plan: patient has not been waking up after his sedation has been stopped since 10/17/2019 afternoon. likely related to metabolic encephalopathy, infectious encephalopathy, medication related - neurology has been consulted and appreciate their evaluation and recommendations - EEG was done on 10/20/2019 and discussed with Neurology, EEG had significant slowing, likely related to severe encephalopathy. No epileptiform discharges were seen - patient did have a CT scan of the brain on 10/18/2019: was negative for any acute intracranial pathology (2) Septic shock: Code(s): A41.9 - Sepsis, unspecified organism; R65.21 - Severe sepsis with septic shock Status: Acute Assessment and Plan: RESOLVED: OFF LEVOPHED since 2:00 a.m. on 10/16/2019 - Septic shock likely due to aspiration pneumonia, colitis and positive pressure ventilation - is severe sepsis with WBC count of 52.8, lactic acid of 3.1. Blood pressures have been stable - CT scan of the abdomen and pelvis on 10/16 showed interval progression of patchy bilateral airspace disease, compatible pneumonia. Bilateral pleural effusions right greater than left moderate ascites which appears loculated the left upper abdomen, cannot exclude peritonitis, abdominal wall thickening suspicious for cystitis. peritoneal dialysis catheter present in the pelvis - 10/19/2019 peritoneal fluid Gram stain , no organism seen - 10/19/2019 peritoneal fluid culture, budding yeast seen - 10/18/2019 blood cultures negative x2 - started patient on vancomycin and aztreonam on 10/19/2019, appreciate infectious disease evaluation and recommendation. ID agrees with antibiotics - Ultrasound guided thoracentesis has been ordered, INR was elevated and patient on Plavix, interventional radiology requested stopping the Plavix for at least 3-4 days prior to thoracentesis. Patient continues to have leukocytosis with bandemia. Discussed at length with nephrology and surgery, plan is to remove the peritoneal dialysis catheter with irrigation of the peritoneal cavity by surgery, place right IJ dialysis catheter (3) Cardiorespiratory arrest: Code(s): I46.9 - Cardiac arrest, cause unspecified Status: Acute Assessment and Plan: PEA arrest likely due aspiration,ROSC after 1 round of epinephrine - post arrest pt was following commands and so did not require hypothermia protocol - trops elevated to 0.40 likely due to cardiac arrest (4) Aspiration pneumonia: Code(s): J69.0 - Pneumonitis due to inhalation of food and vomit Status: Acute Assessment and Plan: worsening chest x-ray likely related to aspiration pneumonia /pneumonitis - continue antibiotics as above - patient on mechanical ventilation With ASV peep of 5, 30% FiO2, ABGs adequate. - chest x-ray reviewed, CT scan of the abdomen and pelvis on 11/06/2019 showed worsening of the bilateral patchy infiltrates - currently off all sedation since 2:00 p.m. on 10/17/2019, patient does not open his eyes or follow simple commands - He has end-stage renal disease and probably sedatives he has received so far will take some time to get metabolized and excreted. no further workup for his altered mental status but if his mental status does not improve in the next 24-48 hours then we can have further workup done. (5) Colitis: Code(s): K52.9 - Noninfective gastroenteritis and colitis, unspecified Status: Acute Assessment and Plan: patient presented with abdominal pain, nausea, vomiting and diarrhea, CT scan of the abdomen and pelvis on 10/13/2019 showed sigmoid colon wall thickening is consistent with colitis. Repeat CT abdomen pelvis on 11/06/2019 did not show any evidence of mesenteric ischemia. He does have ascites and 1 pocket of ascites seems to be
--- NOTE | 2019-10-20 14:57 | WPDNEURCNPN ---
Assessment and Plan Assessment and plan (1) Encephalopathy: Code(s): G93.40 - Encephalopathy, unspecified Status: Acute (2) Leukocytosis: Code(s): D72.829 - Elevated white blood cell count, unspecified Status: Acute (3) DVT prophylaxis: Code(s): Z29.9 - Encounter for prophylactic measures, unspecified Status: Acute (4) Peritonitis (acute) generalized: Code(s): K65.0 - Generalized (acute) peritonitis Status: Acute (5) Septic shock: Code(s): A41.9 - Sepsis, unspecified organism; R65.21 - Severe sepsis with septic shock Status: Acute (6) Atrial fibrillation: Code(s): I48.91 - Unspecified atrial fibrillation Status: Acute (7) Cardiorespiratory arrest: Code(s): I46.9 - Cardiac arrest, cause unspecified Status: Acute (8) Aspiration pneumonia: Code(s): J69.0 - Pneumonitis due to inhalation of food and vomit Status: Acute (9) Generalized background slowing present on electroencephalogram: Code(s): R94.01 - Abnormal electroencephalogram [EEG] Status: Acute (10) ESRD (end stage renal disease) on dialysis: Code(s): N18.6 - End stage renal disease; Z99.2 - Dependence on renal dialysis Status: Acute (11) History of bladder cancer: Code(s): Z85.51 - Personal history of malignant neoplasm of bladder Status: Acute Additional Plan significant encephalopathy multifactorial in origin confirmed by the EEG The prognosis at best is fair to poor Consult date: 10/20/19 Time Seen: 14:30 HPI: Ángel Fung is a 78 year old male who had a prolonged course including the septic shock and has been on the ventilator but has been off sedation for few days still not able to respond and only response to deep pain no further daughter can be obtained beside reviewing the records and speaking to the electroencephalograph her and also the ICU silo worker The EEG is significantly slow and I will dictate the report little latter I have reviewed the EEG and this goes along with the significant encephalopathy of multifactorial origin Review of Systems Review of Systems: ROS unobtainable: Yes unobtainable due to endotracheal tube PMFSH Past Medical History Medical History Anemia of chronic disease Arthritis Back pain Bladder tumor Resected 09/15/2019 Coronary artery disease With history of stent in 2008 and 2014 Diabetic peripheral neuropathy End-stage renal disease on peritoneal dialysis Managed by Dr. Lauren Glaucoma Hearing loss With bilateral hearing aids Hyperlipidemia Hypertension Hypothyroidism Insulin dependent type 2 diabetes mellitus Osteomyelitis (~05/2015) Peripheral arterial disease History of multiple bilateral lower extremity stents. Peritonitis (acute) generalized Urethral stricture Status post dilatation 09/15/2019 Surgical History Surgical History Amputation of fifth toe of right foot (~05/2015) History of colonoscopy with polypectomy Reportedly had a Colonoscopy in 2019 due to his chronic diarrhea and had findings of a cancerous polyp that was completely removed during the colonoscopy. This was performed in [place]. History of heart artery stent (~10/2014) 2008 and 2014 History of surgical removal of skin lesion Top of head and face. Basal cell carcinoma History of transurethral destruction of bladder lesion 09/15/2019 History of vascular surgery Bilateral lower extremity stents. Total of 4 stents in each leg Status post cataract extraction Status post cystourethroscopy with dilation of urethral stricture 09/15/2019 Family History Family History Mother , Age 87 ID Heart disease Diabetes mellitus Cataract Father , Age 69 from Cancer Heart disease Lung cancer Sibling Domitila
[2019-10-20] MEDS: FAT EMULSIONS IV 20% 250 ML 20.8 ML IVPB (17:35)
[2019-10-20 17:45] LABS: Glucose Point of Care 358 (65-105)
[2019-10-20 19:38] LABS: Sodium 123 mmol/L (137-145)
[2019-10-20] MEDS: INSULIN GLARGINE (*BKC) 100 UNITS/ML 40 UNITS SUB-Q (21:25)
[2019-10-21] VITALS (40 sets, daily range): BP systolic 98–145; BP diastolic 3–71; PULSE 80–103; RESP 12–36; TEMP 36–37.1; O2SAT 86–100
[2019-10-21] MEDS: INSULIN ASPART (*BKC) 100 UNITS/ML SUB-Q (00:02)
[2019-10-21] MEDS: metroNIDAZOLE 500 MG/ISO 100ML 500 MG/100 ML BAG 100 MG IVPB ×4 (00:04→17:02)
[2019-10-21] MEDS: ALBUMIN HUMAN 25% 12.5 GM/50ML 50 ML IVPB ×4 (00:05→17:02)
[2019-10-21 00:20] LABS: Glucose Point of Care 294 (65-105)
[2019-10-21 04:31] LABS: Hematocrit 23.6 % (42.0-52.0); Hemoglobin 7.8 g/dL (14.0-18.0); Mean Corpuscular HGB Conc 33.1 g/dl (32-36); Mean Corpuscular Hemoglobin 32.2 pg (26-34); Mean Corpuscular Volume 97.5 fl (80-100); Mean Platelet Volume 10.7 fl (7.4-10.4); Platelet Count Result 191 k/mm3 (150-375); Red Blood Count 2.42 M/mm3 (4.6-6.20); Red Cell Distribution Width 16.1 % (11.5-14.5); White Blood Count 37.8 K/mm3 (4.5-10.0)
[2019-10-21 04:42] LABS: Lactic Acid 2.2 mmol/L (0.7-2.1)
[2019-10-21 04:43] LABS: Anion Gap 12.5 mmol/L (7-16); Blood Urea Nitrogen 35 mg/dL (9-20); Calcium 7.5 mg/dL (8.4-10.2); Carbon Dioxide 19 mmol/L (22-30); Chloride 97 mmol/L (98-107); Estimated CRCL calculation 17 ml/min; Estimated Glomerular Filt Rate 19; Glucose 183 mg/dL (75-110); Magnesium 1.6 mg/dL (1.6-2.3); Phosphorus 1.5 mg/dL (2.5-4.5); Potassium 3.5 mmol/L (3.4-5.0); Sodium 125 mmol/L (137-145)
[2019-10-21 04:55] LABS: INR 2.2; Prothrombin Time 24.1 Seconds (11.1-14.7)
[2019-10-21 05:07] LABS: Alveolar/Arterial O2 Gradient 110.1 mmHg; Base Excess ABG -7.2 mEq/l (+/-2.0); Carboxyhemoglobin 0.1 % THb (0-2.0); Device VENTILATOR; Fractional Inspired Oxygen 30 %; HCO3 ABG 16.5 mEq/l (22.0-26.0); Methemoglobin ABG 0.2 %THb (0-1.5); Oxygen Content ABG 15.5 %vol (16.0-22.0); Oxygen Saturation ABG 94.4 % (95.0-100.0); Oxyhemoglobin 93.4 % THb (90.0-100.0); PO2 ABG 70.9 mmHg (80.0-100.0); PO2 FiO2 Ratio Arterial Blood 2.36 %; Reduced Hemoglobin 6.3 %THb (0-5.0); Site Drawn LEFT BRACHIAL; Total Hemoglobin 11.8 g/dL (12.0-18.0); pH ABG 7.388 (7.350-7.450)
[2019-10-21 05:08] LABS: Arterial Blood Gas PEEP 5 cmH2O; Arterial Blood Gas Vent Mode ASV
[2019-10-21 05:13] LABS: Vancomycin Random 19.6 ug/mL (10-20)
[2019-10-21] MEDS: LEVOTHYROXINE SODIUM 75 MCG TABLET PO (06:15)
[2019-10-21] MEDS: CENTRAL LINE FLUSH 10 ML IV PUSH ×3 (06:15→23:03)
--- NOTE | 2019-10-21 08:12 | WPDHPUPDATE1 ---
History and Physical Update Update Date/Time: 10/21/19 08:12 History and Physical has been reviewed, including an updated exam of the patient. There are changes in the patient's condition.Since his admission the patient had a cardiac arrest and was resuscitated from that. He has since then been in the ICU on a ventilator. He is suspected of having pneumonia secondary to aspiration and is still recovering from this. He may also have low-grade peritonitis associated with his peritoneal dialysis catheter. Therefore, I have discussed procedure of placement of a hemodialysis tunneled catheter followed by removal of the peritoneal dialysis catheter and irrigation of the abdomen with placement of drains. His is his next of kin and has given consent to same. Risks, benefits, and alternatives have been discussed and questions answered. Patient agrees to proceed with procedure.
--- NOTE | 2019-10-21 08:17 | WPDANESEPP ---
Anes - Eval Pre Procedure Procedure: Operation Date: 10/21/19 13:30 Proposed Procedures p Placement of Right Intrajugular Tunnel Dialysis Catheter, Removal of Peritoneal Dialysis Catheter - Iggy Levi MD s Peritoneal Washout With Placement of Two Drains - Iggy Levi MD Date/Time: 10/21/19 08:17 Surgeon: trudi Preop Diagnosis: ESRF Pre Op Diagnosis: Abdominal pain. Patient Data Age: 78 Gender: M Height: 5 ft 4 in Weight: 84.4 kg Last Vital Signs Temp 97.3 F L 10/21/19 08:00 Pulse 97 10/21/19 08:00 Resp 26 H 10/21/19 08:00 BP 98/60 L 10/21/19 08:00 Pulse Ox 100 10/21/19 08:00 Allergies Allergy/AdvReac Type Severity Reaction Status Date / Time amoxicillin Allergy Severe HIGH Verified 09/19/19 16:09 FEVER/LETHARGY Penicillins Allergy Severe HIGH Verified 09/19/19 16:09 FEVER/LETHARGY Home Medications Medication Instructions Recorded Confirmed Type B complex-vitamin C-folic acid 0.8 1 tablet PO DAILY 03/24/19 10/13/19 History mg tablet carvedilol 25 mg tablet 25 mg PO BID 03/24/19 10/13/19 History clopidogrel 75 mg tablet 75 mg PO DAILY 03/24/19 10/13/19 History fluticasone propionate 50 2 spray NASAL DAILY 03/24/19 10/13/19 History mcg/actuation nasal spray,suspension gabapentin 100 mg capsule 200 mg PO DAILY 03/24/19 10/13/19 History insulin regular human 100 unit/mL 1 sliding scale dose SUB-Q 03/24/19 10/13/19 History injection solution USEASDIRECTD torsemide 100 mg tablet 100 mg PO QAM 03/24/19 10/13/19 History acetaminophen 325 mg capsule 325 mg PO Q6H PRN 05/14/19 10/13/19 History cholecalciferol (vitamin D3) 50 50 mcg PO DAILY 05/14/19 10/13/19 History mcg (2,000 unit) capsule Probiotic 1 cap PO DAILY 08/24/19 10/13/19 History amlodipine 2.5 mg PO DAILY 08/24/19 10/13/19 History aspirin [Aspir-81] 81 mg PO DAILY 08/24/19 10/13/19 History magnesium oxide 400 mg PO DAILY 08/24/19 10/13/19 History potassium chloride 20 meq PO DAILY 08/24/19 10/13/19 History pravastatin 80 mg PO DAILY 09/19/19 10/13/19 History tamsulosin 0.4 mg PO QAM #30 cap 09/23/19 10/13/19 Rx levothyroxine 75 mcg PO DAILY 10/13/19 10/13/19 History loperamide [Imodium A-D] 1 mg PO DAILY 10/13/19 10/13/19 History Laboratory Tests 10/19/19 10/20/19 10/20/19 23:51 08:13 08:24 WBC 45.4 K/mm3 H K/mm3 (4.5-10.0) RBC 2.75 M/mm3 L M/mm3 (4.6-6.20) Hgb 8.6 g/dL L g/dL (14.0-18.0) Hct 26.6 % L % (42.0-52.0) MCV 96.7 fl fl (80-100) MCH 31.3 pg pg (26-34) MCHC 32.3 g/dl g/dl (32-36) RDW 15.9 % H % (11.5-14.5) Plt Count 229 k/mm3 k/mm3 (150-375) MPV 10.6 fl H fl (7.4-10.4) Immature Gran % (Auto) Not Reportable Neut % (Auto) Not Reportable Lymph % (Auto) Not Reportable [place] % (Auto) Not Reportable Eos % (Auto) Not Reportable Baso % (Auto) Not Reportable Lymph # (Auto) Not Reportable [place] # (Auto) Not Reportable Eos # (Auto) Not Reportable Baso # (Auto) Not Reportable Abs Immat Gran (auto) Not Reportable Absolute Neuts (auto) Not Reportable Absolute Nucleated RBC Not Reportable Total Counted 100 Neutrophils % (Manual) 64 % % (46-73) Band Neutrophils % 26 % H % (0-6) Lymphocytes % (Manual) 4.0 % L % (18-44) Monocytes % (Manual) 3 % % (3-9) Eosinophils % (Manual) 3 % % (0-4) Nucleated RBC % Not Reportable Abs Neuts (Manual) 40.86 K/mm3 H K/mm3 (1.3-6.7) Abs Lymphs (Manual) 1.81 K/mm3 K/mm3 (1.1-4.5) Abs Monocytes (Manual) 1.36 K/mm3 H K/mm3 (0.1-0.90) Absolute Eos (Manual) 1.36 K/mm3 H K/mm3 (0.02-0.5) Platelet Estimate Adequate (Adequate) Polychromasia 1+ (NORMAL
[2019-10-21] MEDS: ACIDOPHILUS/BULGARICUS CHEWABLE TABLET 1 TABLET PO (09:09)
[2019-10-21] MEDS: PRAVASTATIN SODIUM 20 MG TABLET 80 MG PO (09:10)
[2019-10-21] MEDS: FLUTICASONE PROPIONATE 0.05% NA SPR 16 GM BTL (*BKC) 2 SPRAY NASAL (09:11)
[2019-10-21] MEDS: PANTOPRAZOLE SODIUM IV 40 MG VIAL IV PUSH ×2 (09:11→23:01)
[2019-10-21] MEDS: AZTREONAM 1 GM in DEXTROSE 5% IN WATER 50 ML IVPB (09:19)
[2019-10-21] MEDS: SILVERGEL (ELTA) 45 ML 1 APPLIC TOPICAL (09:23)
[2019-10-21] MEDS: GABAPENTIN 100 MG CAPSULE 200 MG PO (09:45)
[2019-10-21] MEDS: POTASSIUM/PHOSPHORUS/SODIUM 1.5 GM PACKET 1 PACKET FEED TUBE (09:45)
[2019-10-21] MEDS: SODIUM CHLORIDE 0.9% IV 250 ML 30 ML IV CONT (09:54)
--- NOTE | 2019-10-21 11:33 | PCFNICU ---
ICU Rounding Note: Pt current nutrition is NPO. Nutrition recommendation:Agree Last recorded weight is 84.4 kg. Bowel Motility: No BM reported on Dulcolax Labs Reviewed:Na 125,GFR 19,Cr 3.2, Glu 183,Hct 23.6, Hgb 7.8 Meds Noted:Heparin, Albumin, Insulin, Dulcolax, Synthroid, Flagyl, Protonix Additional Notes: Patient tube feedings are on hold today for tunneled catheter and removal of PD catheter. Plans for Dialysis to start. EEG on 10/19. Plans to restart tube feedings of Nepro at 25ml/hr today to provide 990 kcals, 44g protein, and 400ml of free water over 22 hrs. Clinimix 5/15 +250ml lipids at 30ml/hr to provide 1011 kcals, 36g protein, and 970ml of free water currently on Hold and weaning. Following daily in ICU rounds. Assessing/reassessing every Saturday and Saturday.
[2019-10-21 11:50] LABS: Glucose Point of Care 134 (65-105)
--- NOTE | 2019-10-21 13:16 | WPDINFPN2 ---
Progress Note: A&P Assessment and Plan (1) Leukocytosis: Code(s): D72.829 - Elevated white blood cell count, unspecified Status: Acute Assessment and Plan: 1. Leukocytosis, could well be due to fungal peritonitis from his catheter. PD fluid with worsening WBC. Blood wbc lower but marked L shift. 2. Colitis by CT 3. CRF on CAPD 4. PCN intolerance REC Fluid analysis (repeat peritoneal, new pleura R). Pull TLC. BCs also in process. (antibiotic #9) Vanc #9, aztreo #3, and metronidazole. i would continue his antibacterials. Add Micafungin #1. I called [facility] and they will identify the isolated yeast. Catheter removal shortly and agree this is indicated Subjective Date/time seen: 10/21/19 13:16 Interval history: intubated, no drips Exam Narrative: Exam Narrative: afebrile Const: General: no acute distress Neck: Neck: no JVD Resp: Effort & Inspection: normal respiratory effort Auscultation: rales and diminished lung sounds Cardio: Rate: regular rate Rhythm: regular rhythm Heart sounds: no gallops and no murmurs GI: Inspection: distended GI Palp: Yes Tenderness to palpation present (GI) and No Guarding due to palpation present (GI) Percussion: Yes tympanic to percussion Auscultation: abnormal bowel sounds : Other: scrotal edema Urinary Catheter: Urinary Catheter: patent and draining and urine clear Skin: General skin exam: normal color and no rashes or lesions noted Objective Data Vital Signs Vital Signs: Vital Signs - 24 hr 10/20/19 14:00 10/20/19 14:15 10/20/19 14:36 Temperature 36.6 C 36.9 C Pulse Rate 96 94 94 Respiratory Rate 16 23 H 23 H Blood Pressure 124/58 L 123/62 133/60 Pulse Oximetry 100 100 100 10/20/19 14:37 10/20/19 14:39 10/20/19 16:00 Temperature 36.9 C 36.3 C L Pulse Rate 94 93 99 Respiratory Rate 22 H 20 Blood Pressure 133/60 138/61 Pulse Oximetry 100 100 100 10/20/19 16:43 10/20/19 18:00 10/20/19 20:00 Temperature 36.6 C Pulse Rate 92 100 100 Respiratory Rate 19 20 Blood Pressure 134/59 L 137/60 Pulse Oximetry 100 100 100 10/20/19 20:45 10/20/19 22:00 10/20/19 23:20 Temperature Pulse Rate 101 H 100 100 Respiratory Rate 22 H Blood Pressure 117/56 L Pulse Oximetry 100 100 100 10/21/19 00:00 10/21/19 02:00 10/21/19 04:00 Temperature 37.1 C 36.9 C Pulse Rate 103 H 97 100 Respiratory Rate 27 H 27 H 25 H Blood Pressure 142/3 H 121/60 111/57 L Pulse Oximetry 100 100 100 10/21/19 05:00 10/21/19 06:00 10/21/19 07:59 Temperature Pulse Rate 98 98 96 Respiratory Rate 25 H Blood Pressure 110/52 L Pulse Oximetry 100 100 100 10/21/19 08:00 10/21/19 09:49 10/21/19 10:00 Temperature 36.3 C L 36.9 C Pulse Rate 97 95 97 Respiratory Rate 24 H 29 H Blood Pressure 98/60 L 110/48 L Pulse Oximetry 100 99 10/21/19 10:06 10/21/19 10:53 10/21/19 11:06 Temperature 36.9 C 36.8 C Pulse Rate 96 91 97 Respiratory Rate 25 H 27 H Blood Pressure 103/48 L 117/57 L Pulse Oximetry 99 100 100 10/21/19 12:00 Temperature 36.9 C Pulse Rate 94 Respiratory Rate 27 H Blood Pressure 109/51 L Pulse Oximetry 100 Intake/Output Intake/Output: Intake & Output 10/18/19 10/19/19 10/20/19 10/21/19 23:59 23:59 23:59 23:59 Intake Total 3 3089.6667 3796.6667 1649 Output Total 485 -22 353 50 Balance 1572 3731.6667 2353.6667 1599 Meds/Results Medications: Active Medications Generic Name Dose Route Start Last Admin Trade Name Freq PRN Reason Stop Dose Admin Bisacodyl 10 mg 10/14/19 17:03 10/16/19 17:51 Dulcolax Suppository RECTAL 10 mg QAM PRN Administration Constipation Dextrose 12.5 gm 10/16/19 20:09 Dextrose 50% Syringe IV PUSH PRN PRN Hypoglycemia Protocol Fluticasone Propionate 2 spray 10/16/19 09:00 10/21/19 09:11 Flonase 0.05% Nasal [place] NASAL 2 spray DAILY JOHNATHAN Administration Gabapentin 200 mg 10/16/19 09:00 10/21/19 09:45 Neurontin PO 200 mg
--- NOTE | 2019-10-21 13:40 | WPDINTPN ---
Progress Note: A&P Assessment and Plan (1) Encephalopathy: Code(s): G93.40 - Encephalopathy, unspecified Status: Acute Assessment and Plan: patient has not been waking up after his sedation has been stopped since 10/17/2019 afternoon. likely related to metabolic encephalopathy, infectious encephalopathy, medication related - neurology has been consulted and appreciate their evaluation and recommendations - EEG was done on 10/20/2019 and discussed with Neurology, EEG had significant slowing, likely related to severe encephalopathy. No epileptiform discharges were seen - patient did have a CT scan of the brain on 10/18/2019: was negative for any acute intracranial pathology (2) Septic shock: Code(s): A41.9 - Sepsis, unspecified organism; R65.21 - Severe sepsis with septic shock Status: Acute Assessment and Plan: RESOLVED: OFF LEVOPHED since 2:00 a.m. on 10/16/2019 - Septic shock likely due to aspiration pneumonia, colitis and positive pressure ventilation - is severe sepsis with WBC count of 52.8, lactic acid of 3.1. Blood pressures have been stable - CT scan of the abdomen and pelvis on 10/16 showed interval progression of patchy bilateral airspace disease, compatible pneumonia. Bilateral pleural effusions right greater than left moderate ascites which appears loculated the left upper abdomen, cannot exclude peritonitis, abdominal wall thickening suspicious for cystitis. peritoneal dialysis catheter present in the pelvis - 10/19/2019 peritoneal fluid Gram stain , no organism seen - 10/19/2019 peritoneal fluid culture, budding yeast seen - 10/18/2019 blood cultures negative x2 - started patient on vancomycin and aztreonam on 10/19/2019, appreciate infectious disease evaluation and recommendation. ID agrees with antibiotics - peritoneal fluid grew yeast, Micafungin started today - Ultrasound guided thoracentesis has been ordered, INR was elevated and patient on Plavix, interventional radiology requested stopping the Plavix for at least 3-4 days prior to thoracentesis. leukocytosis improving gradually - patient to get tunneled dialysis catheter in the right IJ and removal of the peritoneal dialysis in the OR by surgery on 10/21/2019 (3) Peritonitis: Code(s): K65.9 - Peritonitis, unspecified Status: Acute Assessment and Plan: patient with peritonitis, likely fungal peritonitis - appreciate infectious disease following the patient - continue IV vancomycin, aztreonam and micafungin (4) Cardiorespiratory arrest: Code(s): I46.9 - Cardiac arrest, cause unspecified Status: Acute Assessment and Plan: PEA arrest likely due aspiration,ROSC after 1 round of epinephrine - post arrest pt was following commands and so did not require hypothermia protocol - trops elevated to 0.40 likely due to cardiac arrest (5) Aspiration pneumonia: Code(s): J69.0 - Pneumonitis due to inhalation of food and vomit Status: Acute Assessment and Plan: worsening chest x-ray likely related to aspiration pneumonia /pneumonitis - continue antibiotics as above - patient on mechanical ventilation With ASV peep of 5, 30% FiO2, ABGs adequate. - chest x-ray reviewed, CT scan of the abdomen and pelvis on 11/06/2019 showed worsening of the bilateral patchy infiltrates - currently off all sedation since 2:00 p.m. on 10/17/2019, patient does not open his eyes or follow simple commands - He has end-stage renal disease and probably sedatives he has received so far will take some time to get metabolized and excreted. no further workup for his altered mental status but if his mental status does not improve in the next 24-48 hours then we can have further workup done. (6) Colitis: Code(s): K52.9 - Noninfective gastroenteritis and colitis, unspecified Status: Acute Assessment and Plan: patient presented with abdominal pain, nausea, vomiting and diarrhea, CT
[2019-10-21] MEDS: BUPIVACAINE/EPINEPHRINE 0.5% 30 ML VIAL INFILTRATE (13:56)
[2019-10-21] MEDS: HEPARIN SODIUM 1,000 UNITS/ML VIAL 1000 UNITS IV PUSH (13:58)
[2019-10-21] MEDS: HEPARIN SODIUM, PORCINE 10,000 UNITS/10 ML VIAL 10000 UNITS IV PUSH (13:59)
--- NOTE | 2019-10-21 14:36 | PM.PROC ---
Procedure Note - Detailed Date of procedure: 10/21/19 Pre-op diagnosis: Abdominal pain. End-stage renal disease Failed peritoneal dialysis with possible fungal peritonitis Post-op diagnosis: same Procedure performed: Placement of tunneled dialysis catheter (Rt. IJ) 2. Diagnostic laparoscopy, peritoneal washout, Placement of drains. Description of procedure: The patient was placed in the supine position on the operating table and then using the inplace oral endotracheal tube general anesthesia was induced by the nurse commercial loan processor, we carefully rotated the patient's head and tilted slightly to the left. I then prepped both sides of the neck and chest with chlorhexidine. After waiting 3 minutes I carefully draped the patient, and we performed a time-out confirming the patient's site of surgery. Because of his size, a 28 cm DuraFlow catheter was selected. I used ultrasound to identify the right jugular vein in the mid neck and this was cannulated under direct vision with an 18-gauge Arrow needle on a syringe. Good dark blood was aspirated, the J-guidewire was advanced through the needle and into the central venous system under usual Seldinger technique. C-arm fluoroscopy was used to confirm that the wire was then through the central venous system and then we removed the needle and blue guide off the wire. Following this, we measured the DuraFlow catheter such that the tip would be just into the right atrium or in the distal superior vena cava. A hemostat was placed on the drapes over the chest to guide where we would place this. Then the catheter was measured back to the entry site of the J- wire in a curvilinear fashion and down to her chest overlying the right clavicle. Local anesthetic was placed into 3 ferrer, the exit site and then 2 more on his lateral neck such that a curvilinear path could be dissected through the subcutaneous tissues up to the insertion site on his right neck. Local anesthetic was infiltrated along the tract prior to tunneling. Incisions were made with a 15 blade knife at the exit site and the 2 counter incisions and then an 11 blade at the wire. The tunneling device was connected to the catheter and this was pulled through these incisions to make the subcutaneous tunnel a curvilinear course through the subcutaneous tissues to the insertion site. Then the wire was serially dilated with a 12, 14, and then a 16-Lithuanian dilator over the pull away sheath. We watched the 16-Lithuanian dilator and sheath go down into the central venous system with C-arm fluoroscopy and then removed the dilator wire after carefully covering the end of the catheter. I lost some blood, as we then inserted the catheter down into the central venous system. The catheter was held in place with a DeBakey forceps and then we carefully tore away the sheath leaving the catheter within the subcutaneous tissues and down into the juglar vein. Following this, C-arm fluoroscopy was used to examine the full course of the catheter. The tip was just into the right atrium and there was a good curvilinear course of the catheter in the neck down to the exit site over the right clavicle. Minimal bleeding was continuing, so we then went ahead and closed these incisions with some buried subcutaneous sutures of 4-0 Monocryl directly over the catheter at the insertion site and then buried subcutaneous sutures at each of the incisions except the exit site. 3-0 nylon was used to suture the catheter at its hub to the skin and an antibiotic disc was placed at the exit site. Tegaderm applied over this and the patient was taken to the recovery room in good condition. No continuing bleeding was identified in the recovery room. The patient tolerated the procedure well. Will plan to do a chest x-ray in his ICU room after the procedure. . Estimated blood loss was again about 20 cc. Abdominal portion of the procedure: After the above we then removed all the drapes. Following this the entire abdome
--- NOTE | 2019-10-21 15:23 | SUR.OPER ---
culture given to arya in lab my or ivelisse arndt at [phone]
--- NOTE | 2019-10-21 15:55 | SUR.OPER ---
dr. brush washed abdomen with 3000ml ns and 3000ml ns accounted for in suction canisters.
--- NOTE | 2019-10-21 16:19 | WPDNEUROPN ---
Progress Note: A&P Assessment and Plan (1) Peritonitis: Code(s): K65.9 - Peritonitis, unspecified Status: Acute (2) Type 2 diabetes mellitus: Code(s): E11.9 - Type 2 diabetes mellitus without complications Status: Chronic (3) CKD stage 5 due to type 2 diabetes mellitus: Code(s): E11.22 - Type 2 diabetes mellitus with diabetic chronic kidney disease; N18.5 - Chronic kidney disease, stage 5 Status: Acute (4) Hypothyroidism: Qualifiers: Hypothyroidism type: acquired Qualified Code(s): E03.9 - Hypothyroidism, unspecified Code(s): E03.9 - Hypothyroidism, unspecified Status: Acute (5) Generalized background slowing present on electroencephalogram: Code(s): R94.01 - Abnormal electroencephalogram [EEG] Status: Acute (6) Encephalopathy: Code(s): G93.40 - Encephalopathy, unspecified Status: Acute (7) Leukocytosis: Code(s): D72.829 - Elevated white blood cell count, unspecified Status: Acute (8) DVT prophylaxis: Code(s): Z29.9 - Encounter for prophylactic measures, unspecified Status: Acute (9) Peritonitis (acute) generalized: Code(s): K65.0 - Generalized (acute) peritonitis Status: Acute (10) Atrial fibrillation: Code(s): I48.91 - Unspecified atrial fibrillation Status: Acute (11) Cardiorespiratory arrest: Code(s): I46.9 - Cardiac arrest, cause unspecified Status: Acute (12) Aspiration pneumonia: Code(s): J69.0 - Pneumonitis due to inhalation of food and vomit Status: Acute (13) Cholelithiasis: Code(s): K80.20 - Calculus of gallbladder without cholecystitis without obstruction Status: Acute (14) ESRD (end stage renal disease) on dialysis: Code(s): N18.6 - End stage renal disease; Z99.2 - Dependence on renal dialysis Status: Acute (15) Atrial fibrillation, new onset: Code(s): I48.91 - Unspecified atrial fibrillation Status: Acute (16) History of bladder cancer: Code(s): Z85.51 - Personal history of malignant neoplasm of bladder Status: Acute Additional Plan please continue the medical management as I understand from the attending nurses the wants to continue the medical measures as they deemed necessary Review of Systems Review of Systems: ROS unobtainable: Yes unobtainable due to endotracheal tube Exam Const: General: comfortable and no acute distress HENMT: General nose exam: Normal nares present Mouth: Yes moist mucous membranes Eyes: General: appearance normal, both eyes and all related structures Other: anisocoria probably physiological remains the same Neck: Neck: supple and no JVD Resp: Auscultation: clear to auscultation bilaterally Cardio: Rate: regular rate Rhythm: regular rhythm GI: Auscultation: normal bowel sounds Skin: General skin exam: normal color and no rashes or lesions noted Neuro: Other: patient is on the respirator and without sedation he remains in a comatose state with does not respond except to a deep pain stimuli by grimacing Extrem: General: normal to inspection Psych: Other: on the ventilator and only response to deep pain Objective Data Vital Signs Vital Signs: Vital Signs - 24 hr 10/20/19 16:43 10/20/19 18:00 10/20/19 20:00 Temperature 36.6 C Pulse Rate 92 100 100 Respiratory Rate 19 20 Blood Pressure 134/59 L 137/60 Pulse Oximetry 100 100 100 10/20/19 20:45 10/20/19 22:00 10/20/19 23:20 Temperature Pulse Rate 101 H 100 100 Respiratory Rate 22 H Blood Pressure 117/56 L Pulse Oximetry 100 100 100 10/21/19 00:00 10/21/19 02:00 10/21/19 04:00 Temperature 37.1 C 36.9 C Pulse Rate 103 H 97 100 Respiratory Rate 27 H 27 H 25 H Blood Pressure 142/3 H 121/60 111/57 L Pulse Oximetry 100 100 100 10/21/19 05:00 10/21/19 06:00 10/21/19 07:59 Temperature Pulse Rate 98 98 96 Respiratory Rate 25 H Blood Pressure 1
[2019-10-21] MEDS: MICAFUNGIN SODIUM 100 MG in SODIUM CHLORIDE 0.9% IV 100 ML IVPB (17:01)
[2019-10-21] MEDS: FAT EMULSIONS IV 20% 250 ML 20.8 ML IVPB (17:02)
--- NOTE | 2019-10-21 17:22 | PM.PNNEP ---
Progress Note: A&P Assessment and Plan (1) Peritonitis (acute) generalized: Code(s): K65.0 - Generalized (acute) peritonitis Status: Acute Assessment and Plan: the patient has peritonitis. CT scan shows no perforation. PD catheter has been removed. The patient was drained of fluid last night but then had [id number] of fluid this morning by laparoscopy. Perhaps this was a loculated section of peritoneum. It is drained now. Will start hemodialysis tonight. remove 1 to 2 L as rocio. will do more tomorrow. (2) Colitis: Code(s): K52.9 - Noninfective gastroenteritis and colitis, unspecified Status: Acute Assessment and Plan: CT a negative for ischemia Dr. aguilar on the case. (3) Septic shock: Code(s): A41.9 - Sepsis, unspecified organism; R65.21 - Severe sepsis with septic shock Status: Acute Assessment and Plan: On no pressors. White count still high. (4) Hyponatremia: Code(s): E87.1 - Hypo-osmolality and hyponatremia Status: Acute Assessment and Plan: this is chronic. Try to limit free water intake. received 3% saline yesterday. 125 today. will get HD tonight and it should bring it up a bit more. (5) Aspiration pneumonia: Code(s): J69.0 - Pneumonitis due to inhalation of food and vomit Status: Acute Assessment and Plan: Patient had nausea and vomiting and aspirated. He is getting pulmonary toilet and supportive care. (6) Atrial fibrillation, new onset: Code(s): I48.91 - Unspecified atrial fibrillation Status: Acute Assessment and Plan: Patient has atrial fibrillation. Heart rate is well controlled in the 90s (7) ESRD (end stage renal disease) on dialysis: Code(s): N18.6 - End stage renal disease; Z99.2 - Dependence on renal dialysis Status: Acute Assessment and Plan: hd tonight.. (8) Urinary tract infection: Qualifiers: Hematuria presence: with hematuria Urinary tract infection type: site unspecified Qualified Code(s): N39.0 - Urinary tract infection, site not specified; R31.9 - Hematuria, unspecified Code(s): N39.0 - Urinary tract infection, site not specified Status: Acute Assessment and Plan: urine culture negative. Subjective Date/time seen: 10/21/19 17:22 Interval history: Patient is on the ventilator. Patient is off sedatives for 96 hours and is still not responsive. last night I had the dialysis nurse drain his fluid out. Today Dr. Levi did laparoscopy and drained 2000cc. Hemo cath is in; peritoneal dialysis catheter is out. Review of Systems Review of Systems: ROS unobtainable: Yes unobtainable due to endotracheal tube and unobtainable due to medical condition Exam Narrative: Exam Narrative: Exam Narrative: Well developed well-nourished gentleman lying in the ICU bed on the ventilator. He is sedated. Skin No rash or subcu nodules Head normocephalic atraumatic Lungs symmetric and coarse bilaterally. Heart irregular rate and rhythm without rub or gallop Abdomen bowel sounds absent. soft. Two drains in Extremities 1+ presacral edema still. Objective Data Vital Signs Vital Signs: Vital Signs - 24 hr 10/20/19 18:00 10/20/19 20:00 10/20/19 20:45 Temperature 36.6 C Pulse Rate 100 100 101 H Respiratory Rate 19 20 Blood Pressure 134/59 L 137/60 Pulse Oximetry 100 100 100 10/20/19 22:00 10/20/19 23:20 10/21/19 00:00 Temperature 37.1 C Pulse Rate 100 100 103 H Respiratory Rate 22 H 27 H Blood Pressure 117/56 L 142/3 H Pulse Oximetry 100 100 100 10/21/19 02:00 10/21/19 04:00 10/21/19 05:00 Temperature 36.9 C Pulse Rate 97 100 98 Respiratory Rate 27 H 25 H Blood Pressure 121/60 111/57 L Pulse Oximetry 100 100 100 10/21/19 06:00 10/21/19 07:59 10/21/19 08:00 Temperature 36.3 C L Pulse Rate 98 96 97 Respiratory Rate 25 H 24 H
[2019-10-21 18:39] LABS: Glucose Point of Care 107 (65-105)
[2019-10-21 18:45] LABS: Hematocrit 18.8 % (42.0-52.0); Hemoglobin 6.4 g/dL (14.0-18.0)
[2019-10-21] MEDS: HEPARIN SODIUM 1,000 UNITS/ML VIAL 5000 UNITS (22:30)
[2019-10-21] MEDS: INSULIN GLARGINE (*BKC) 100 UNITS/ML 40 UNITS SUB-Q (22:59)
[2019-10-21] MEDS: HEPARIN SODIUM 5,000 UNITS/ML VIAL 5000 UNITS SUB-Q (23:02)
[2019-10-22] VITALS (36 sets, daily range): BP systolic 101–163; BP diastolic 51–85; PULSE 90–107; RESP 22–37; TEMP 36.2–37.6; O2SAT 96–100
[2019-10-22 00:10] LABS: Glucose Point of Care 86 (65-105)
[2019-10-22] MEDS: metroNIDAZOLE 500 MG/ISO 100ML 500 MG/100 ML BAG 100 MG IVPB ×4 (00:10→17:32)
[2019-10-22 00:41] LABS: Vancomycin Random 14.1 ug/mL (10-20)
[2019-10-22 05:06] LABS: Alveolar/Arterial O2 Gradient 205.6 mmHg; Base Excess ABG -0.6 mEq/l (+/-2.0); Carboxyhemoglobin 0.3 % THb (0-2.0); Device VENTILATOR; Fractional Inspired Oxygen 45 %; HCO3 ABG 21.9 mEq/l (22.0-26.0); Methemoglobin ABG 0.2 %THb (0-1.5); Oxygen Content ABG 14.1 %vol (16.0-22.0); Oxyhemoglobin 95.8 % THb (90.0-100.0); PCO2 ABG 28.9 mmHg (35.0-45.0); PO2 ABG 82.4 mmHg (80.0-100.0); PO2 FiO2 Ratio Arterial Blood 1.83 %; Reduced Hemoglobin 3.7 %THb (0-5.0); Site Drawn RIGHT BRACHIAL; Total Hemoglobin 10.4 g/dL (12.0-18.0); pH ABG 7.497 (7.350-7.450)
[2019-10-22 05:07] LABS: Arterial Blood Gas PEEP 5 cmH2O; Arterial Blood Gas Vent Mode ASV
[2019-10-22] MEDS: HEPARIN SODIUM 5,000 UNITS/ML VIAL 5000 UNITS SUB-Q ×3 (06:06→22:48)
[2019-10-22] MEDS: LEVOTHYROXINE SODIUM 75 MCG TABLET PO (06:06)
[2019-10-22] MEDS: CENTRAL LINE FLUSH 10 ML IV PUSH ×3 (06:06→15:47)
[2019-10-22 06:15] LABS: INR 2.2
[2019-10-22 06:16] LABS: Partial Thromboplastin Time 42.8 SECONDS (22.3-36.8)
[2019-10-22 06:26] LABS: Hematocrit 26.3 % (42.0-52.0); Hemoglobin 8.8 g/dL (14.0-18.0); Mean Corpuscular HGB Conc 33.5 g/dl (32-36); Mean Corpuscular Hemoglobin 31.1 pg (26-34); Mean Corpuscular Volume 92.9 fl (80-100); Mean Platelet Volume 11.2 fl (7.4-10.4); Platelet Count Result 152 k/mm3 (150-375); Red Blood Count 2.83 M/mm3 (4.6-6.20); Red Cell Distribution Width 17.1 % (11.5-14.5); White Blood Count 39.4 K/mm3 (4.5-10.0)
[2019-10-22 06:42] LABS: Alanine Aminotransferase 17 U/L (4-50); Albumin Level 1.9 g/dL (3.5-5.1); Alkaline Phosphatase 129 U/L (38-126); Anion Gap 11.1 mmol/L (7-16); Aspartate Amino Transferase 46 U/L (17-59); Bilirubin,Total 0.4 mg/dL (0.2-1.3); Blood Urea Nitrogen 22 mg/dL (9-20); Calcium 6.8 mg/dL (8.4-10.2); Carbon Dioxide 24 mmol/L (22-30); Chloride 95 mmol/L (98-107); Estimated CRCL calculation 28 ml/min; Estimated Glomerular Filt Rate 33; Glucose 34 mg/dL (75-110); Magnesium 1.5 mg/dL (1.6-2.3); Phosphorus 1.1 mg/dL (2.5-4.5); Potassium 3.1 mmol/L (3.4-5.0); Sodium 127 mmol/L (137-145)
[2019-10-22 06:46] LABS: Glucose Point of Care 38 (65-105)
[2019-10-22] MEDS: DEXTROSE 50% 25 GM/50 ML SYRINGE IV PUSH ×5 (06:46→19:00)
[2019-10-22 07:16] LABS: Glucose Point of Care 57 (65-105)
[2019-10-22 07:18] LABS: Band Neutrophils Percent 34 % (0-6); Eosinophils Absolute Manual 0.78 K/mm3 (0.02-0.5); Eosinophils Percent Manual 2 % (0-4); Lymphocytes Absolute Manual 4.33 K/mm3 (1.1-4.5); Metamyelocytes Percent 1 %; Monocytes Absolute Manual 1.18 K/mm3 (0.1-0.90); Monocytes Percent Manual 3 % (3-9); Neutrophils Percent Manual 49 % (46-73); Total Cells Counted 100
[2019-10-22 07:28] LABS: Glucose Point of Care 111 (65-105)
[2019-10-22 07:34] LABS: Hypochromasia 2+ (NORMAL); Platelet Estimate Adequate (Adequate); Polychromasia 1+ (NORMAL)
--- NOTE | 2019-10-22 08:30 | PM.PNNEP ---
Progress Note: A&P Assessment and Plan (1) Peritonitis (acute) generalized: Code(s): K65.0 - Generalized (acute) peritonitis Status: Acute Assessment and Plan: the patient has peritonitis. Drains are in. Yeast grew from 1 of the cultures. He has been placed on antifungals by Dr. aguilar. (2) Colitis: Code(s): K52.9 - Noninfective gastroenteritis and colitis, unspecified Status: Acute Assessment and Plan: CT negative for ischemia Dr. aguilar on the case. (3) Septic shock: Code(s): A41.9 - Sepsis, unspecified organism; R65.21 - Severe sepsis with septic shock Status: Acute Assessment and Plan: On no pressors. White count still high. Now on antifungals as well as antibacterials (4) Hyponatremia: Code(s): E87.1 - Hypo-osmolality and hyponatremia Status: Acute Assessment and Plan: this is chronic. Sodium level is better today after dialysis. It should improve after today's dialysis as well. He is also going on tube feedings which is to aster per cc and so showed improved sodium as well. (5) Aspiration pneumonia: Code(s): J69.0 - Pneumonitis due to inhalation of food and vomit Status: Acute Assessment and Plan: Patient had nausea and vomiting and aspirated. He is getting pulmonary toilet and supportive care. (6) Atrial fibrillation, new onset: Code(s): I48.91 - Unspecified atrial fibrillation Status: Acute Assessment and Plan: Patient has atrial fibrillation. Heart rate is well controlled in the 90s (7) ESRD (end stage renal disease) on dialysis: Code(s): N18.6 - End stage renal disease; Z99.2 - Dependence on renal dialysis Status: Acute Assessment and Plan: hd This morning. Sodium is low so we will do on 135 bath. Calcium is low but so is albumin. We will do him on a 3 calcium bath. Potassium is low as well. Will use a 4 potassium bath. Phosphorus is low. He was supplemented by Dr. Lopez Magnesium is low. He was supplemented for this as well. (8) Urinary tract infection: Qualifiers: Hematuria presence: with hematuria Urinary tract infection type: site unspecified Qualified Code(s): N39.0 - Urinary tract infection, site not specified; R31.9 - Hematuria, unspecified Code(s): N39.0 - Urinary tract infection, site not specified Status: Acute Assessment and Plan: urine culture negative. Subjective Date/time seen: 10/22/19 08:30 Interval history: Patient is on the ventilator. Comfortable on the ventilator. Unresponsive. He had dialysis yesterday evening and got 1L off. So he had a total of 3L off yesterday, 2L in the OR and 1L on dialysis. His blood pressure seems pretty well controlled today. He is not on pressors. Review of Systems Review of Systems: ROS unobtainable: Yes unobtainable due to endotracheal tube and unobtainable due to medical condition Exam Narrative: Exam Narrative: Exam Narrative: Well developed well-nourished gentleman lying in the ICU bed on the ventilator. He is sedated. Skin No rash Head normocephalic atraumatic Lungs symmetric and coarse bilaterally. Heart irregular rate and rhythm without rub or gallop Abdomen bowel sounds absent. soft. Two drains in Extremities 2+ presacral edema still. Objective Data Vital Signs Vital Signs: Vital Signs - 24 hr 10/21/19 09:49 10/21/19 10:00 10/21/19 10:06 Temperature 36.9 C 36.9 C Pulse Rate 95 97 96 Respiratory Rate 29 H 25 H Blood Pressure 110/48 L 103/48 L Pulse Oximetry 99 99 10/21/19 10:53 10/21/19 11:06 10/21/19 12:00 Temperature 36.8 C 36.9 C Pulse Rate 91 97 94 Respiratory Rate 27 H 27 H Blood Pressure 117/57 L 109/51 L Pulse Oximetry 100 100 100 10/21/19 16:20 10/21/19 16:30 10/21/19 16:45 Temperature 36.8 C 36.7 C Pulse Rate 88 88 86 Respira
--- NOTE | 2019-10-22 09:24 | WPDINTPN ---
Progress Note: A&P Assessment and Plan (1) Severe sepsis: Code(s): A41.9 - Sepsis, unspecified organism; R65.20 - Severe sepsis without septic shock Status: Acute Assessment and Plan: patient initially presented with septic shock,OFF LEVOPHED since 2:00 a.m. on 10/16/2019 - now with severe sepsis with elevated white blood cell count, initial lactic acidosis which has resolved - peritoneal cultures growing Yeast - continue IV vancomycin, aztreonam and micafungin - appreciate infectious disease following the patient - persistent leukocytosis - CT scan of the abdomen and pelvis on 10/16 showed interval progression of patchy bilateral airspace disease, compatible pneumonia. Bilateral pleural effusions right greater than left moderate ascites which appears loculated the left upper abdomen, cannot exclude peritonitis, abdominal wall thickening suspicious for cystitis. peritoneal dialysis catheter present in the pelvis - 10/19/2019 peritoneal fluid Gram stain , no organism seen - 10/19/2019 peritoneal fluid culture, growing YEAST - 10/18/2019 blood cultures negative x2 - 10/21/2019 repeat peritoneal cultures and peritoneal catheter cultures have been sent (2) Peritonitis: Code(s): K65.9 - Peritonitis, unspecified Status: Acute Assessment and Plan: patient with peritonitis, likely fungal peritonitis - status post removal of peritoneal dialysis catheter on 10/21/2019, Catheter and peritoneal fluid sent for culture - appreciate infectious disease following the patient - continue IV vancomycin, aztreonam and micafungin (3) Encephalopathy: Code(s): G93.40 - Encephalopathy, unspecified Status: Acute Assessment and Plan: patient has not been waking up after his sedation has been stopped since 10/17/2019 afternoon. likely related to metabolic encephalopathy, infectious encephalopathy, medication related - neurology has been consulted and appreciate their evaluation and recommendations - EEG was done on 10/20/2019 and discussed with Neurology, EEG had significant slowing, likely related to severe encephalopathy. No epileptiform discharges were seen - patient did have a CT scan of the brain on 10/18/2019: was negative for any acute intracranial pathology (4) Aspiration pneumonia: Code(s): J69.0 - Pneumonitis due to inhalation of food and vomit Status: Acute Assessment and Plan: worsening chest x-ray likely related to pneumonia, volume overload - continue antibiotics as above - patient on mechanical ventilation With ASV peep of 5, 45% FiO2 - chest x-ray any ABGs reviewed - currently off all sedation since 2:00 p.m. on 10/17/2019, patient does not open his eyes or follow simple commands - Ultrasound guided thoracentesis has been ordered, INR was elevated and patient on Plavix, interventional radiology requested stopping the Plavix for at least 3-4 days prior to thoracentesis. (5) Cardiorespiratory arrest: Code(s): I46.9 - Cardiac arrest, cause unspecified Status: Acute Assessment and Plan: PEA arrest likely due aspiration,ROSC after 1 round of epinephrine - post arrest pt was following commands and so did not require hypothermia protocol - trops elevated to 0.40 likely due to cardiac arrest (6) Colitis: Code(s): K52.9 - Noninfective gastroenteritis and colitis, unspecified Status: Acute Assessment and Plan: RESOLVED - patient presented with abdominal pain, nausea, vomiting and diarrhea, CT scan of the abdomen and pelvis on 10/13/2019 showed sigmoid colon wall thickening is consistent with colitis. Repeat CT abdomen pelvis on 10/17/2019 did not show any evidence of mesenteric ischemia. He does have ascites and 1 pocket of ascites seems to be loculated, possible peritonitis, bladder wall thickening suspicion for cystitis - continue antibiotics as above - continue TPN - WILL RESTART TUBE FEEDS, ADVANCED TO GOAL A
[2019-10-22] MEDS: PRAVASTATIN SODIUM 20 MG TABLET 80 MG PO (09:30)
[2019-10-22] MEDS: PANTOPRAZOLE SODIUM IV 40 MG VIAL IV PUSH ×2 (09:31→22:48)
[2019-10-22] MEDS: SILVERGEL (ELTA) 45 ML 1 APPLIC TOPICAL (09:32)
[2019-10-22] MEDS: GABAPENTIN 100 MG CAPSULE 200 MG PO (09:32)
[2019-10-22] MEDS: ACIDOPHILUS/BULGARICUS CHEWABLE TABLET 1 TABLET PO (09:32)
[2019-10-22] MEDS: MAGNESIUM SULF 2 GM/WATER 50ML 2 GM/50 ML BAG IVPB ×2 (09:35→18:06)
[2019-10-22] MEDS: FLUTICASONE PROPIONATE 0.05% NA SPR 16 GM BTL (*BKC) 2 SPRAY NASAL (09:36)
[2019-10-22] MEDS: EPOETIN ALFA-EPBX 10,000 UNITS/ML VIAL 10000 UNITS IV PUSH (10:09)
--- NOTE | 2019-10-22 10:18 | PM.PNGS ---
Progress Note: A&P Assessment and Plan (1) Peritonitis: Onset Date: ~10/2019 Code(s): K65.9 - Peritonitis, unspecified Status: Acute Assessment and Plan: Patient may be somewhat improved since removal of his peritoneal dialysis catheter and peritoneal irrigation yesterday. Tunnelled Dialysis catheter in the right IJ position working well for dialysis today. (2) Type 2 diabetes mellitus: Onset Date: Unknown Code(s): E11.9 - Type 2 diabetes mellitus without complications Status: Chronic Assessment and Plan: On subcu insulin, followed by travel coordinator and hospitalist. (3) CKD stage 5 due to type 2 diabetes mellitus: Onset Date: Unknown Code(s): E11.22 - Type 2 diabetes mellitus with diabetic chronic kidney disease; N18.5 - Chronic kidney disease, stage 5 Status: Acute Assessment and Plan: BUN creatinine improved, hyponatremia is somewhat improved. Patient on dialysis now and is followed by Nephrology. (4) Hypothyroidism: Onset Date: Unknown Qualifiers: Hypothyroidism type: acquired Qualified Code(s): E03.9 - Hypothyroidism, unspecified Code(s): E03.9 - Hypothyroidism, unspecified Status: Acute Assessment and Plan: Managed by hospitalist/travel coordinator (5) Generalized background slowing present on electroencephalogram: Onset Date: ~10/2019 Code(s): R94.01 - Abnormal electroencephalogram [EEG] Status: Acute Assessment and Plan: this is developed since being intubated. Patient did have cardiac arrest situation day of admission. We are waiting to see if some of this improves after resolution of his current signs of infection and difficulties with fluid overload. (6) Leukocytosis: Onset Date: ~09/2019 Code(s): D72.829 - Elevated white blood cell count, unspecified Status: Acute Assessment and Plan: Patient has had leukocytosis since admission. Hopefully this will respond to antifungal and the washout of the peritoneum where he did appear to have possible bacterial or fungal peritonitis. (7) Hyponatremia: Onset Date: Unknown Code(s): E87.1 - Hypo-osmolality and hyponatremia Status: Acute Assessment and Plan: Patient continues to have the sodium levels run in the mid 120s. Hopefully will improve with hemodialysis. Nephrology following and treating. This may be contributing to his encephalopathy. (8) Atrial fibrillation: Onset Date: ~09/2019 Code(s): I48.91 - Unspecified atrial fibrillation Status: Acute Assessment and Plan: Apparently this was 1st noticed at this time on his current admission. Not previously known to have atrial fibrillation. (9) Cholelithiasis: Onset Date: ~09/2019 Code(s): K80.20 - Calculus of gallbladder without cholecystitis without obstruction Status: Acute Assessment and Plan: Admission CT scan showed cholelithiasis and ultrasound on 09/22/2019 showed cholelithiasis without signs of cholecystitis. No gallbladder wall thickening or pericholecystic fluid noted on that ultrasound. (10) Coronary artery disease: Onset Date: Unknown Code(s): I25.10 - Atherosclerotic heart disease of [place] coronary artery without angina pectoris Status: Acute Assessment and Plan: patient did have a cardiopulmonary arrest during this admission. This was felt to be more on the basis of possible pulmonary aspiration and hypoxia then on any cardiac reason. (11) Hypertension: Onset Date: Unknown Qualifiers: Hypertension type: secondary to endocrine disorders Qualified Code(s): I15.2 - Hypertension secondary to endocrine disorders Code(s): I10 - Essential (primary) hypertension Status: Chronic Assessment and Plan: On medication and hospitalist/travel coordinator following. Additional Plan Will plan to follow output from [facility] [place]
[2019-10-22] MEDS: POTASSIUM/PHOSPHORUS/SODIUM 1.5 GM PACKET 1 PACKET PO (11:06)
--- NOTE | 2019-10-22 11:13 | PCFNICU ---
ICU Rounding Note: Pt current nutrition is Nepro at 35 ml/hr. Nutrition recommendation: Agree Last recorded weight is [f pt wt kg]kg. Bowel Motility:+BM reported 10/21 Labs Reviewed:Glu 127,K 3.1,Mg 1.5,Alb 1.9 Meds Noted:Vanco, Duloclax,Protonix, Flagyl,Synthroid. Additional Notes: Remains on mechanical vent. Patient getting Dialysis today. HD catheter placed yesterday, PD catheter removed. TPN to be discontinued today. Tube feedings increased to Nepro at 35 ml/hr providing 1386 kcals and 62 gms protein. Following daily in ICU rounds. Assessing/reassessing every Saturday and Saturday.
--- NOTE | 2019-10-22 11:34 | PM.EVENT ---
Event Note Event Note Event Note: ON HD rocio it well. will up fluid off to 4 L as rocio
--- NOTE | 2019-10-22 12:06 | WPDNEUROPN ---
Progress Note: A&P Assessment and Plan (1) Severe sepsis: Code(s): A41.9 - Sepsis, unspecified organism; R65.20 - Severe sepsis without septic shock Status: Acute (2) Peritonitis: Onset Date: ~10/2019 Code(s): K65.9 - Peritonitis, unspecified Status: Acute (3) Type 2 diabetes mellitus: Onset Date: Unknown Code(s): E11.9 - Type 2 diabetes mellitus without complications Status: Chronic (4) CKD stage 5 due to type 2 diabetes mellitus: Onset Date: Unknown Code(s): E11.22 - Type 2 diabetes mellitus with diabetic chronic kidney disease; N18.5 - Chronic kidney disease, stage 5 Status: Acute (5) Hypothyroidism: Onset Date: Unknown Qualifiers: Hypothyroidism type: acquired Qualified Code(s): E03.9 - Hypothyroidism, unspecified Code(s): E03.9 - Hypothyroidism, unspecified Status: Acute (6) Generalized background slowing present on electroencephalogram: Onset Date: ~10/2019 Code(s): R94.01 - Abnormal electroencephalogram [EEG] Status: Acute (7) Encephalopathy: Code(s): G93.40 - Encephalopathy, unspecified Status: Acute (8) Leukocytosis: Onset Date: ~09/2019 Code(s): D72.829 - Elevated white blood cell count, unspecified Status: Acute (9) DVT prophylaxis: Code(s): Z29.9 - Encounter for prophylactic measures, unspecified Status: Acute (10) Peritonitis (acute) generalized: Code(s): K65.0 - Generalized (acute) peritonitis Status: Acute (11) Abnormal computed tomography of abdomen and pelvis: Code(s): R93.5 - Abnormal findings on diagnostic imaging of other abdominal regions, including retroperitoneum Status: Acute (12) Atrial fibrillation: Onset Date: ~09/2019 Code(s): I48.91 - Unspecified atrial fibrillation Status: Acute (13) Cardiorespiratory arrest: Code(s): I46.9 - Cardiac arrest, cause unspecified Status: Acute (14) Aspiration pneumonia: Code(s): J69.0 - Pneumonitis due to inhalation of food and vomit Status: Acute (15) ESRD (end stage renal disease) on dialysis: Code(s): N18.6 - End stage renal disease; Z99.2 - Dependence on renal dialysis Status: Acute (16) Atrial fibrillation, new onset: Code(s): I48.91 - Unspecified atrial fibrillation Status: Acute (17) History of bladder cancer: Code(s): Z85.51 - Personal history of malignant neoplasm of bladder Status: Acute (18) Urinary retention: Code(s): R33.9 - Retention of urine, unspecified Status: Acute (19) History of transurethral destruction of bladder lesion: Code(s): Z98.890 - Other specified postprocedural states Status: Acute (20) Insulin dependent type 2 diabetes mellitus: Code(s): E11.9 - Type 2 diabetes mellitus without complications; Z79.4 - alf (current) use of insulin Status: Acute (21) Coronary artery disease: Onset Date: Unknown Code(s): I25.10 - Atherosclerotic heart disease of [place] coronary artery without angina pectoris Status: Acute Additional Plan from the neurological standpoint the patient is really and poor neurological and physical state directly related to the sepsis and 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
[2019-10-22] MEDS: AZTREONAM 1 GM in DEXTROSE 5% IN WATER 50 ML IVPB (12:14)
[2019-10-22] MEDS: MICAFUNGIN SODIUM 100 MG in SODIUM CHLORIDE 0.9% IV 100 ML IVPB (12:15)
[2019-10-22] MEDS: HEPARIN SODIUM 1,000 UNITS/ML VIAL 1000 UNITS IV PUSH (12:15)
[2019-10-22 12:27] LABS: Glucose Point of Care 42 (65-105)
--- NOTE | 2019-10-22 12:48 | WPDANESPN ---
Anes - Prog Note Post-Op Date/Time: 10/22/19 12:48 Cardiovascular status: other Respiratory status: other Airway patency: other Mental status: other Post-Op hydration status: other Vital Signs: Last Vital Signs Temp 36.4 C L 10/22/19 12:15 Pulse 103 H 10/22/19 12:15 Resp 33 H 10/22/19 12:15 BP 163/82 H 10/22/19 12:15 Pulse Ox 99 10/22/19 12:15 I/O: Intake & Output 10/21/19 10/22/19 10/22/19 23:59 07:59 15:59 Intake Total 2436.6667 1488 201 Output Total 7555 621 2756 Balance 907.8196 6691 -6245 Laboratory Tests 10/22/19 05:47 10/22/19 05:47 10/20/19 10/21/19 10/21/19 11:57 17:25 18:34 WBC RBC Hgb 6.4 L* Hct 18.8 L* MCV MCH MCHC RDW Plt Count MPV Immature Gran % (Auto) Neut % (Auto) Lymph % (Auto) Baldwin % (Auto) Eos % (Auto) Baso % (Auto) Lymph # (Auto) Baldwin # (Auto) Eos # (Auto) Baso # (Auto) Abs Immat Gran (auto) Absolute Neuts (auto) Absolute Nucleated RBC Total Counted Neutrophils % (Manual) Band Neutrophils % Lymphocytes % (Manual) Monocytes % (Manual) Eosinophils % (Manual) Metamyelocytes % Nucleated RBC % Abs Neuts (Manual) Abs Lymphs (Manual) Abs Monocytes (Manual) Absolute Eos (Manual) Platelet Estimate Polychromasia Hypochromasia PT INR APTT Puncture Site ABG pH ABG pCO2 ABG pO2 ABG PO2/FiO2 Ratio ABG HCO3 ABG O2 Saturation ABG O2 Content ABG Base Excess A-a Gradient Oxyhemoglobin Carboxyhemoglobin Methemoglobin Reduced Hemoglobin Total Hemoglobin O2 Delivery Device O2 Liters/Min Minute Volume Vent Rate Vent Mode FiO2 Tidal Volume PEEP Peak Inspir Pressure Pressure Support Sodium Potassium Chloride Carbon Dioxide Anion Gap BUN Creatinine Estim Creat Clear Calc Estimated GFR Glucose POC Capillary Glucose 107 Lactic Acid Calcium Phosphorus Magnesium Total Bilirubin AST ALT Alkaline Phosphatase Total Protein Albumin Random Vancomycin Blood Type A Negative Antibody Screen Negative Crossmatch See Detail 10/21/19 10/22/19 10/22/19 23:09 00:07 05:00 WBC RBC Hgb Hct MCV MCH MCHC RDW Plt Count MPV Immature Gran % (Auto) Neut % (Auto) Lymph % (Auto) Baldwin % (Auto) Eos % (Auto) Baso % (Auto) Lymph # (Auto) Baldwin # (Auto) Eos # (Auto) Baso # (Auto) Abs Immat Gran (auto) Absolute Neuts (auto) Absolute Nucleated RBC Total Counted Neutrophils % (Manual) Band Neutrophils % Lymphocytes % (Manual) Monocytes % (Manual) Eosinophils % (Manual) Metamyelocytes % Nucleated RBC % Abs Neuts (Manual) Abs Lymphs (Manual) Abs Monocytes (Manual) Absolute Eos (Manual) Platelet Estimate Polychromasia Hypochromasia PT INR APTT Puncture Site Right brachial ABG pH 7.497 H ABG pCO2 28.9 L ABG pO2 82.4 ABG PO2/FiO2 Ratio 1.83 ABG HCO3 21.9 L ABG O2 Saturation 97.0 ABG O2 Content 14.1 L ABG Base Excess -0.6 A-a Gradient 205.6 Oxyhemoglobin 95.8 Carboxyhemoglobin 0.3 Methemoglobin 0.2 Reduced Hemoglobin 3.7 Total Hemoglobin 10.4 L O2 Delivery Device Ventilator O2 Liters/Min Not Reportable Minute Volume Not Reportable Vent Rate Not Reportable Vent Mode Asv FiO2 45 Tidal Volume Not Reportable PEEP 5 Peak Inspir Pressure Not Reportable Pressure Support Not Reportable Sodium Potassium Chloride Carbon Dioxide Anion Gap BUN Creatinine Estim Creat Clear Calc Estimated GFR Glucose POC Capillary Glucose 86 Lactic Acid Calcium Phosphorus Magnesium Total Bilirubin AST ALT Alkaline Phosphatase Total Prot
[2019-10-22 13:06] LABS: Glucose Point of Care 101 (65-105)
--- NOTE | 2019-10-22 13:53 | WPDINFPN2 ---
Progress Note: A&P Assessment and Plan (1) Leukocytosis: Onset Date: ~09/2019 Code(s): D72.829 - Elevated white blood cell count, unspecified Status: Acute Assessment and Plan: 1. Leukocytosis, could well be due to fungal peritonitis from his catheter. PD fluid with worsening WBC. Blood wbc lower but marked L shift. 2. Colitis by CT 3. CRF on CAPD 4. PCN intolerance REC BCs also in process. (antibiotic #10) Vanc #10, aztreo #4, and metronidazole. i would continue his antibacterials. Change micafungin to fluconazole # 1 (antifungal #2). POD # 1 cath removal. Subjective Date/time seen: 10/22/19 13:53 Interval history: intubated, no pressors Exam Narrative: Exam Narrative: afebrile Const: General: no acute distress Neck: Other: new HD cath on R, CVC on L Resp: Effort & Inspection: normal respiratory effort Auscultation: rales and diminished lung sounds Cardio: Rate: regular rate Rhythm: regular rhythm Heart sounds: no murmurs GI: Inspection: non-distended GI Palp: Yes Soft to palpation, Yes Tenderness to palpation present (GI) and No Guarding due to palpation present (GI) : Other: scrotal edema Urinary Catheter: Urinary Catheter: patent and draining and urine clear Objective Data Vital Signs Vital Signs: Vital Signs - 24 hr 10/21/19 16:20 10/21/19 16:30 10/21/19 16:45 Temperature 36.8 C 36.7 C Pulse Rate 88 88 86 Respiratory Rate 14 12 Blood Pressure 131/53 L 125/61 Pulse Oximetry 100 99 98 10/21/19 17:00 10/21/19 17:15 10/21/19 18:00 Temperature 36.9 C 36.9 C 36.7 C Pulse Rate 84 83 80 Respiratory Rate 16 14 19 Blood Pressure 120/53 L 117/50 L 133/57 L Pulse Oximetry 98 98 96 10/21/19 19:00 10/21/19 19:23 10/21/19 19:30 Temperature 36.7 C Pulse Rate 82 81 81 Respiratory Rate 27 H Blood Pressure 130/55 L 138/58 L 137/61 Pulse Oximetry 94 10/21/19 19:45 10/21/19 20:00 10/21/19 20:15 Temperature Pulse Rate 85 84 84 Respiratory Rate 28 H Blood Pressure 110/54 L 111/55 L 108/54 L Pulse Oximetry 95 10/21/19 20:30 10/21/19 20:45 10/21/19 21:00 Temperature 36.0 C L 36.7 C Pulse Rate 84 82 87 Respiratory Rate 23 H 29 H Blood Pressure 111/55 L 113/68 122/63 Pulse Oximetry 95 95 10/21/19 21:01 10/21/19 21:13 10/21/19 21:15 Temperature 36.2 C L Pulse Rate 87 87 83 Respiratory Rate 28 H Blood Pressure 122/63 119/63 Pulse Oximetry 93 94 10/21/19 21:30 10/21/19 21:45 10/21/19 21:59 Temperature Pulse Rate 84 82 Respiratory Rate Blood Pressure 110/54 L 105/53 L Pulse Oximetry 86 L 10/21/19 22:00 10/21/19 22:15 10/21/19 22:27 Temperature Pulse Rate 97 86 86 Respiratory Rate 36 H Blood Pressure 145/71 H 116/55 L 114/63 Pulse Oximetry 95 10/21/19 22:28 10/21/19 23:15 10/22/19 00:00 Temperature 36.1 C L 36.8 C Pulse Rate 92 89 91 Respiratory Rate 22 H 26 H Blood Pressure 133/64 136/62 Pulse Oximetry 97 98 96 10/22/19 02:00 10/22/19 02:05 10/22/19 04:00 Temperature 36.6 C Pulse Rate 97 96 92 Respiratory Rate 24 H 32 H Blood Pressure 137/72 127/85 Pulse Oximetry 98 98 100 10/22/19 05:07 10/22/19 06:00 10/22/19 08:00 Temperature 36.3 C L Pulse Rate 98 90 98 Respiratory Rate 30 H 31 H Blood Pressure 119/64 132/64 Pulse Oximetry 100 100 100 10/22/19 08:20 10/22/19 08:38 10/22/19 08:40 Temperature 37.6 C Pulse Rate 93 94 94 Respiratory Rate 37 H Blood Pressure 126/51 L 131/64 Pulse Oximetry 100 100 10/22/19 08:45 10/22/19 09:00 10/22/19 09:15 Temperature Pulse Rate 95 98 100 Respiratory Rate Blood Pressure 132/52 L 146/71 H 141/73 H Pulse Oximetry 10/22/19 09:30 10/22/19 09:45 10/22/19 10:00 Temperature 36.9 C Pulse Rate 105 H 104 H 91 Respiratory Rate 29 H Blood Pressure 141/69 H 126/63 111/57 L Pulse Oximetry 98 10/22/19 10:15 10/22/19 10:30 10/22/19 10:45 Temperature Pulse Rate 96 96 98 Respiratory Rate Blood
[2019-10-22 17:21] LABS: Glucose Point of Care < 20 (65-105)
[2019-10-22 17:44] LABS: Glucose Point of Care 112 (65-105)
[2019-10-22 17:47] LABS: Anion Gap 6.3 mmol/L (7-16); Blood Urea Nitrogen 12 mg/dL (9-20); Calcium 7.2 mg/dL (8.4-10.2); Carbon Dioxide 32 mmol/L (22-30); Chloride 95 mmol/L (98-107); Estimated CRCL calculation 39 ml/min; Estimated Glomerular Filt Rate 49; Glucose < 20 mg/dL (75-110); Magnesium 1.7 mg/dL (1.6-2.3); Potassium 3.3 mmol/L (3.4-5.0); Sodium 130 mmol/L (137-145)
[2019-10-22 17:49] LABS: Phosphorus < 1.0 mg/dL (2.5-4.5)
[2019-10-22] MEDS: KCL 20 MEQ/SW 100 ML 100 ML 50 MEQ IVPB (18:21)
[2019-10-22 18:42] LABS: Vancomycin Random 20.8 ug/mL (10-20)
[2019-10-22] MEDS: DEXTROSE 10% 1,000 ML 30 ML IV CONT (18:51)
[2019-10-22 18:58] LABS: Glucose Point of Care 35 (65-105)
[2019-10-22 19:35] LABS: Glucose Point of Care 105 (65-105)
[2019-10-22 19:59] LABS: Glucose Point of Care 96 (65-105)
[2019-10-22 22:11] LABS: Glucose Point of Care 71 (65-105)
[2019-10-22 23:45] LABS: Glucose Point of Care 66 (65-105)
[2019-10-23] VITALS (20 sets, daily range): BP systolic 104–178; BP diastolic 53–84; PULSE 1–110; RESP 19–29; TEMP 36–37.7; O2SAT 93–100
[2019-10-23] MEDS: metroNIDAZOLE 500 MG/ISO 100ML 500 MG/100 ML BAG 100 MG IVPB ×3 (01:00→12:05)
[2019-10-23 03:33] LABS: Glucose Point of Care 104 (65-105)
[2019-10-23 04:16] LABS: Mean Corpuscular HGB Conc 33.3 g/dl (32-36); Mean Corpuscular Hemoglobin 31.6 pg (26-34); Mean Corpuscular Volume 94.7 fl (80-100); Mean Platelet Volume 12.2 fl (7.4-10.4); Platelet Count Result 148 k/mm3 (150-375); Red Blood Count 2.85 M/mm3 (4.6-6.20); White Blood Count 48.6 K/mm3 (4.5-10.0)
[2019-10-23 04:27] LABS: INR 2.4; Prothrombin Time 25.8 Seconds (11.1-14.7)
[2019-10-23 04:28] LABS: Partial Thromboplastin Time 49.9 SECONDS (22.3-36.8)
[2019-10-23 04:32] LABS: Anion Gap 8.5 mmol/L (7-16); Blood Urea Nitrogen 17 mg/dL (9-20); Calcium 7.1 mg/dL (8.4-10.2); Carbon Dioxide 28 mmol/L (22-30); Chloride 94 mmol/L (98-107); Estimated CRCL calculation 31 ml/min; Estimated Glomerular Filt Rate 37; Glucose 86 mg/dL (75-110); Potassium 3.5 mmol/L (3.4-5.0); Sodium 127 mmol/L (137-145)
[2019-10-23 04:40] LABS: Phosphorus < 1.0 mg/dL (2.5-4.5)
[2019-10-23 04:43] LABS: Alveolar/Arterial O2 Gradient 103.2 mmHg; Base Excess ABG 2.7 mEq/l (+/-2.0); Carboxyhemoglobin 0.3 % THb (0-2.0); Device VENTILATOR; Fractional Inspired Oxygen 30 %; Methemoglobin ABG 0.4 %THb (0-1.5); Oxygen Content ABG 13.5 %vol (16.0-22.0); Oxygen Saturation ABG 95.2 % (95.0-100.0); PCO2 ABG 35.2 mmHg (35.0-45.0); PO2 ABG 69.3 mmHg (80.0-100.0); PO2 FiO2 Ratio Arterial Blood 2.31 %; Reduced Hemoglobin 5.3 %THb (0-5.0); Site Drawn LEFT BRACHIAL; Total Hemoglobin 10.2 g/dL (12.0-18.0); pH ABG 7.486 (7.350-7.450)
[2019-10-23 04:44] LABS: Arterial Blood Gas PEEP 5 cmH2O; Arterial Blood Gas Vent Mode ASV
[2019-10-23] MEDS: CENTRAL LINE FLUSH 10 ML IV PUSH ×3 (06:30→20:44)
[2019-10-23] MEDS: HEPARIN SODIUM 5,000 UNITS/ML VIAL 5000 UNITS SUB-Q ×3 (06:30→21:09)
--- NOTE | 2019-10-23 06:49 | WPDINTPN ---
Progress Note: A&P Assessment and Plan (1) Severe sepsis: Code(s): A41.9 - Sepsis, unspecified organism; R65.20 - Severe sepsis without septic shock Status: Acute Assessment and Plan: patient initially presented with septic shock,OFF LEVOPHED since 2:00 a.m. on 10/16/2019 - now with severe sepsis with elevated white blood cell count, initial lactic acidosis which has resolved - peritoneal cultures growing Yeast - continue IV vancomycin, aztreonam and micafungin - appreciate infectious disease following the patient - persistent leukocytosis - CT scan of the abdomen and pelvis on 10/16 showed interval progression of patchy bilateral airspace disease, compatible pneumonia. Bilateral pleural effusions right greater than left moderate ascites which appears loculated the left upper abdomen, cannot exclude peritonitis, abdominal wall thickening suspicious for cystitis. peritoneal dialysis catheter present in the pelvis - 10/19/2019 peritoneal fluid Gram stain , no organism seen - 10/19/2019 peritoneal fluid culture, growing YEAST - 10/18/2019 blood cultures negative x2 - 10/21/2019 repeat peritoneal cultures and peritoneal catheter cultures have been sent (2) Peritonitis: Onset Date: ~10/2019 Code(s): K65.9 - Peritonitis, unspecified Status: Acute Assessment and Plan: patient with peritonitis, likely fungal peritonitis - status post removal of peritoneal dialysis catheter on 10/21/2019, Catheter and peritoneal fluid sent for culture - [facility] drains x2 draining serosanguineous fluid, surgery following the patient - appreciate infectious disease following the patient - continue IV vancomycin, aztreonam and micafungin (3) Encephalopathy: Code(s): G93.40 - Encephalopathy, unspecified Status: Acute Assessment and Plan: patient has been off sedation since 10/17/2019 afternoon. - encephalopathy likely related to metabolic encephalopathy, infectious encephalopathy, medication related - neurology has been consulted and appreciate their evaluation and recommendations - EEG was done on 10/20/2019 and discussed with Neurology, EEG had significant slowing, likely related to severe encephalopathy. No epileptiform discharges were seen - 10/23/2019: Patient open his eyes to name and tracked but did not follow any commands - patient did have a CT scan of the brain on 10/18/2019: was negative for any acute intracranial pathology (4) Aspiration pneumonia: Code(s): J69.0 - Pneumonitis due to inhalation of food and vomit Status: Acute Assessment and Plan: worsening chest x-ray likely related to pneumonia, volume overload - continue antibiotics as above - patient on mechanical ventilation With ASV peep of 5, 30% FiO2 - chest x-ray any ABGs reviewed - currently off all sedation since 2:00 p.m. on 10/17/2019, patient does not open his eyes or follow simple commands - patient possibly volume overloaded, continue dialysis - will require ultrasound-guided thoracentesis at some point. (5) Cardiorespiratory arrest: Code(s): I46.9 - Cardiac arrest, cause unspecified Status: Acute Assessment and Plan: PEA arrest likely due aspiration,ROSC after 1 round of epinephrine - post arrest pt was following commands and so did not require hypothermia protocol - trops elevated to 0.40 likely due to cardiac arrest (6) Colitis: Code(s): K52.9 - Noninfective gastroenteritis and colitis, unspecified Status: Acute Assessment and Plan: RESOLVED - patient presented with abdominal pain, nausea, vomiting and diarrhea, CT scan of the abdomen and pelvis on 10/13/2019 showed sigmoid colon wall thickening is consistent with colitis. Repeat CT abdomen pelvis on 10/17/2019 did not show any evidence of mesenteric ischemia. He does have ascites and 1 pocket of ascites seems to be loculated, possible peritonitis, bladder wall thickening suspicion fo
[2019-10-23] MEDS: LEVOTHYROXINE SODIUM 75 MCG TABLET PO (07:57)
[2019-10-23] MEDS: POTASSIUM/PHOSPHORUS/SODIUM 1.5 GM PACKET 1 PACKET PO (08:39)
[2019-10-23] MEDS: SODIUM PHOSPHATE 20 MM in DEXTROSE 5% IN WATER 250 ML 50 MM IVPB (08:39)
[2019-10-23] MEDS: ACIDOPHILUS/BULGARICUS CHEWABLE TABLET 1 TABLET PO (08:41)
[2019-10-23] MEDS: FLUTICASONE PROPIONATE 0.05% NA SPR 16 GM BTL (*BKC) 2 SPRAY NASAL (08:41)
[2019-10-23] MEDS: GABAPENTIN 100 MG CAPSULE 200 MG PO (08:42)
[2019-10-23] MEDS: PRAVASTATIN SODIUM 20 MG TABLET 80 MG PO (08:42)
[2019-10-23] MEDS: PANTOPRAZOLE SODIUM IV 40 MG VIAL IV PUSH ×2 (08:42→20:43)
[2019-10-23] MEDS: AZTREONAM 1 GM in DEXTROSE 5% IN WATER 50 ML IVPB (08:45)
[2019-10-23] MEDS: FLUCONAZOLE 200 MG/NACL 100 ML 200 MG/100 ML BAG 100 MG IVPB (08:45)
[2019-10-23] MEDS: DEXTROSE 50% 25 GM/50 ML SYRINGE IV PUSH ×2 (08:55→08:56)
--- NOTE | 2019-10-23 09:52 | PM.PNGS ---
Progress Note: A&P Assessment and Plan (1) Peritonitis: Onset Date: ~10/2019 Code(s): K65.9 - Peritonitis, unspecified Status: Acute Assessment and Plan: Patient may be somewhat improved since removal of his peritoneal dialysis catheter and peritoneal irrigation on 10/20. Tunnelled Dialysis catheter in the right IJ position working well for dialysis . (2) Type 2 diabetes mellitus: Onset Date: Unknown Code(s): E11.9 - Type 2 diabetes mellitus without complications Status: Chronic Assessment and Plan: On subcu insulin, followed by supervising bailiff and hospitalist. (3) CKD stage 5 due to type 2 diabetes mellitus: Onset Date: Unknown Code(s): E11.22 - Type 2 diabetes mellitus with diabetic chronic kidney disease; N18.5 - Chronic kidney disease, stage 5 Status: Acute Assessment and Plan: BUN creatinine improved, hyponatremia is somewhat improved. Patient on dialysis now and is followed by Nephrology. (4) Hypothyroidism: Onset Date: Unknown Qualifiers: Hypothyroidism type: acquired Qualified Code(s): E03.9 - Hypothyroidism, unspecified Code(s): E03.9 - Hypothyroidism, unspecified Status: Acute Assessment and Plan: Managed by hospitalist/supervising bailiff (5) Generalized background slowing present on electroencephalogram: Onset Date: ~10/2019 Code(s): R94.01 - Abnormal electroencephalogram [EEG] Status: Acute Assessment and Plan: this is developed since being intubated. Patient did have cardiac arrest situation day of admission. We are waiting to see if some of this improves after resolution of his current signs of infection and difficulties with fluid overload. (6) Leukocytosis: Onset Date: ~09/2019 Code(s): D72.829 - Elevated white blood cell count, unspecified Status: Acute Assessment and Plan: Patient has had leukocytosis since admission. Hopefully this will respond to antifungal and the washout of the peritoneum where he did appear to have possible bacterial or fungal peritonitis. WBC back up to 48,000 today. No new signs of infection elsewhere. Cultures from his peritoneal fluid prior to surgery are now showing Linda albicans. (7) Hyponatremia: Onset Date: Unknown Code(s): E87.1 - Hypo-osmolality and hyponatremia Status: Acute Assessment and Plan: Patient continues to have the sodium levels run in the mid 120s. (Today up to 127). Hopefully will improve with hemodialysis. Nephrology following and treating. This may be contributing to his encephalopathy. (8) Atrial fibrillation: Onset Date: ~09/2019 Code(s): I48.91 - Unspecified atrial fibrillation Status: Acute Assessment and Plan: Apparently this was 1st noticed at this time on his current admission. Not previously known to have atrial fibrillation. (9) Cholelithiasis: Onset Date: ~09/2019 Code(s): K80.20 - Calculus of gallbladder without cholecystitis without obstruction Status: Acute Assessment and Plan: Admission CT scan showed cholelithiasis and ultrasound on 09/22/2019 showed cholelithiasis without signs of cholecystitis. No gallbladder wall thickening or pericholecystic fluid noted on that ultrasound. (10) Coronary artery disease: Onset Date: Unknown Code(s): I25.10 - Atherosclerotic heart disease of [place] coronary artery without angina pectoris Status: Acute Assessment and Plan: patient did have a cardiopulmonary arrest during this admission. This was felt to be more on the basis of possible pulmonary aspiration and hypoxia then on any cardiac reason. (11) Hypertension: Onset Date: Unknown Qualifiers: Hypertension type: secondary to endocrine disorders Qualified Code(s): I15.2 - Hypertension secondary to endocrine disorders Code(s): I10 - Essential (primary) hyperte
[2019-10-23 10:10] LABS: Glucose Point of Care 36 (65-105)
[2019-10-23 10:10] LABS: Glucose Point of Care 148 (65-105)
--- NOTE | 2019-10-23 11:24 | PCNFU ---
Nutrition Follow-Up Complete: Inadequate oral intake related to oral intubation as evidenced by NPO status. Goal: Patient to meet estimated nutritional needs. Progressing towards goal. We will continue current goal. Pt current nutrition is Nepro at 35 ml/hr. Nutrition recommendation: Agree Last recorded weight is 84.1 kg. Bowel Motility:+BM 10/21 Labs Reviewed: Cr 1.8,Na 127,Hct 27.0,Hgb 9.0 Meds Noted:Protonix,Flagyl, Synthroid. Additional Notes: Patient seen today for nutrition follow up. Patient remains on mechanical vent. Plans for Dialysis today. Tube feedings are at goal rate of 35 ml/hr of Nepro providing 1386 kcals and 62 gms protein. Day 11 for mechanical vent, talks of possible PEG and Trach with family soon. Follow up every 3 days. Follow daily in ICU rounds.
[2019-10-23 12:07] LABS: Glucose Point of Care 148 (65-105)
--- NOTE | 2019-10-23 14:59 | PM.IMPN ---
Progress Note: A&P Assessment and Plan (1) Septic shock: Code(s): A41.9 - Sepsis, unspecified organism; R65.21 - Severe sepsis with septic shock Status: Deleted Assessment and Plan: 10/23/19 14:59 patient is 78-year-old male with history of end-stage renal disease on peritoneal dialysis presented emergency department had a cardiac arrest ROSC after 1 round of epinephrine per protocol ROSC, with shortness of breath and hypoxic patient was intubated currently on vent, patient may have aspirated pneumonia, patient in septic shock and on pressor, patient being treated with Levaquin, vancomycin and Flagyl, discussed with manager industrial prognosis is poor we appreciate manager industrial, patient is seen by Dr. Aguilar nephrology for peritoneal dialysis, [employer] Keyboard Operator had spoken with patient's , she would like to keep full code and continue to treat the patient. septic shock resolved and patient is off Levophed, septic shock most likely secondary to aspiration pneumonia possibly peritonitis and treated with Flagyl cefepime and ceftazidime intraperitoneal by nephrology, patient is his leukocytosis etiology uncertain seen by Dr. Rowe and manager industrial, stopped all antibiotic and has started the patient vancomycin and aztreonam, meanwhile patient was seen by surgery and peritoneal dialysis catheter was removed and now patient is on hemodialysis,workup is in progress patient clinically stable on vent, patient is seen by intensive, Dr. Rowe, ID Dr. Aguilar nephrology and General surgery team, further recommendation to follow. (2) Cardiorespiratory arrest: Code(s): I46.9 - Cardiac arrest, cause unspecified Status: Acute Assessment and Plan: after 1 round of epinephrine per protocol ROSC, (3) Aspiration pneumonia: Code(s): J69.0 - Pneumonitis due to inhalation of food and vomit Status: Acute Assessment and Plan: during suction bile was seen most likely patient had aspirated resulting in pneumonia (4) Atrial fibrillation: Onset Date: ~09/2019 Code(s): I48.91 - Unspecified atrial fibrillation Status: Acute (5) Hyponatremia: Onset Date: Unknown Code(s): E87.1 - Hypo-osmolality and hyponatremia Status: Acute Assessment and Plan: rate is controlled (6) Abnormal computed tomography of abdomen and pelvis: Code(s): R93.5 - Abnormal findings on diagnostic imaging of other abdominal regions, including retroperitoneum Status: Acute Assessment and Plan: suspect peritonitis (7) Peritonitis (acute) generalized: Code(s): K65.0 - Generalized (acute) peritonitis Status: Acute Assessment and Plan: patient on peritoneal dialysis,patient is being treated with antibiotics Subjective Date/time seen: 10/23/19 14:59 patient is 78-year-old male with history of end-stage renal disease on peritoneal dialysis presented emergency department had a cardiac arrest ROSC after 1 round of epinephrine per protocol ROSC, with shortness of breath and hypoxic patient was intubated currently on vent, patient may have aspirated pneumonia, patient in septic shock and on pressor, patient being treated with Levaquin, vancomycin and Flagyl, discussed with manager industrial prognosis is poor we appreciate manager industrial, patient is seen by Dr. Aguilar nephrology for peritoneal dialysis, Monotype Keyboard Operator had spoken with patient's , she would like to keep full code and continue to treat the patient. septic shock resolved and patient is off Levophed, septic shock most likely secondary to aspiration pneumonia possibly peritonitis and treated with Flagyl cefepime and ceftazidime intraperitoneal by nephrology, patient is his leukocytosis etiology uncertain seen by Dr. Rowe and manager industrial, stopped all antibiotic and has started the patient vancomycin and aztreonam, meanwhile patient was seen by surgery and peritoneal dialysis catheter was removed and now patient
--- NOTE | 2019-10-23 15:08 | WPDINFPN2 ---
Progress Note: A&P Assessment and Plan (1) Leukocytosis: Onset Date: ~09/2019 Code(s): D72.829 - Elevated white blood cell count, unspecified Status: Acute Assessment and Plan: 1. Leukocytosis, due to fungal peritonitis from his catheter. PD fluid with worsening WBC. WBC still high. 2. Colitis by CT 3. CRF on CAPD 4. PCN intolerance REC BCs also in process. (antibiotic #11), back off antibacterials. Discussed. fluconazole # 2 (antifungal #3). POD # 2 cath removal. If leukcytosis does not substantially improve in coming days, suggest CT to look for loculated fluid collections. Subjective Date/time seen: 10/23/19 15:08 Interval history: intubated Exam Narrative: Exam Narrative: afebrile Const: General: no acute distress Resp: Effort & Inspection: normal respiratory effort Auscultation: clear to auscultation bilaterally and diminished lung sounds Cardio: Rate: regular rate Rhythm: regular rhythm Heart sounds: no murmurs GI: Inspection: distended GI Palp: Yes Soft to palpation, Yes Tenderness to palpation present (GI) and No Guarding due to palpation present (GI) Auscultation: abnormal bowel sounds Urinary Catheter: Urinary Catheter: patent and draining and urine clear Skin: General skin exam: normal color and no rashes or lesions noted Objective Data Vital Signs Vital Signs: Vital Signs - 24 hr 10/22/19 17:15 10/22/19 18:00 10/22/19 19:49 Temperature 36.5 C Pulse Rate 98 98 95 Respiratory Rate 22 H Blood Pressure 126/61 Pulse Oximetry 98 97 97 10/22/19 20:00 10/22/19 22:00 10/22/19 22:58 Temperature 36.2 C L Pulse Rate 100 102 H 97 Respiratory Rate 29 H 29 H Blood Pressure 128/57 L 136/52 L Pulse Oximetry 98 98 98 10/23/19 00:00 10/23/19 01:59 10/23/19 02:00 Temperature 36.7 C Pulse Rate 103 H 102 H 102 H Respiratory Rate 29 H Blood Pressure 178/84 H Pulse Oximetry 99 98 10/23/19 03:00 10/23/19 05:28 10/23/19 08:00 Temperature 36.8 C 36.9 C Pulse Rate 102 H 102 H 105 H Respiratory Rate 20 20 Blood Pressure 170/64 H 130/71 Pulse Oximetry 100 97 100 10/23/19 08:30 10/23/19 10:00 10/23/19 11:09 Temperature Pulse Rate 102 H 108 H 102 H Respiratory Rate 24 H Blood Pressure 142/55 H Pulse Oximetry 100 95 100 10/23/19 12:00 10/23/19 14:00 10/23/19 14:54 Temperature 36.9 C Pulse Rate 105 H 105 H 103 H Respiratory Rate 24 H 22 H Blood Pressure 129/64 130/64 Pulse Oximetry 98 97 97 Intake/Output Intake/Output: Intake & Output 10/20/19 10/21/19 10/22/19 10/23/19 23:59 23:59 23:59 23:59 Intake Total 6086.6667 4063.6667 2491 706.7 Output Total 353 1155 3110 55 Balance 3443.6667 2908.6667 -619 651.7 Meds/Results Medications: Active Medications Generic Name Dose Route Start Last Admin Trade Name Freq PRN Reason Stop Dose Admin Bisacodyl 10 mg 10/14/19 17:03 10/16/19 17:51 Dulcolax Suppository RECTAL 10 mg QAM PRN Administration Constipation Dextrose 12.5 gm 10/16/19 20:09 10/23/19 08:56 Dextrose 50% Syringe IV PUSH 12.5 gm PRN PRN Administration Hypoglycemia Protocol Fluticasone Propionate 2 spray 10/16/19 09:00 10/23/19 08:41 Flonase 0.05% Nasal [place] NASAL 2 spray DAILY JOHNATHAN Administration Gabapentin 200 mg 10/16/19 09:00 10/23/19 08:42 Neurontin PO 200 mg DAILY JOHNATHAN Administration Glucagon 1 mg 10/16/19 20:09 Glucagon For Inj IM PRN PRN Hypoglycemia Protocol Glucose 15 gm 10/16/19 20:09 Glutose 15 PO PRN PRN Hypoglycemia Protocol Heparin Sodium (Porcine) 5,000 units 10/14/19 22:00 10/23/19 13:51 Heparin Sodium SUB-Q 5,000 units Q8HR JOHNATHAN Administration Metronidazole 500 mg in 100 mls @ 100 mls/hr 10/13/19 18:00 10/23/19 14:47 Flagyl 500 Mg/Iso Soln 100 Ml IVPB Infused Q6HR JOHNATHAN Infusion Dextrose 1,000 mls @ 100 mls/hr 10/16/19 20:09 Dextrose 5% 1,000 Ml IVPB PRN PRN
--- NOTE | 2019-10-23 15:50 | PM.PNNEP ---
Progress Note: A&P Assessment and Plan (1) Peritonitis (acute) generalized: Code(s): K65.0 - Generalized (acute) peritonitis Status: Acute Assessment and Plan: the patient has peritonitis. Drains are in. Yeast grew from 1 of the cultures. He has been placed on antifungals by Dr. aguilar. (2) Septic shock: Code(s): A41.9 - Sepsis, unspecified organism; R65.21 - Severe sepsis with septic shock Status: Deleted Assessment and Plan: On no pressors. White count still high. Now on antifungals Discussed with Dr. aguilar (3) Hyponatremia: Onset Date: Unknown Code(s): E87.1 - Hypo-osmolality and hyponatremia Status: Acute Assessment and Plan: sodium gradually better with dialysis. (4) Aspiration pneumonia: Code(s): J69.0 - Pneumonitis due to inhalation of food and vomit Status: Acute Assessment and Plan: Patient had nausea and vomiting and aspirated. He is getting pulmonary toilet and supportive care. (5) Atrial fibrillation, new onset: Code(s): I48.91 - Unspecified atrial fibrillation Status: Acute Assessment and Plan: Patient has atrial fibrillation. Heart rate is well controlled in the 90s (6) ESRD (end stage renal disease) on dialysis: Code(s): N18.6 - End stage renal disease; Z99.2 - Dependence on renal dialysis Status: Acute Assessment and Plan: hd This morning. Sodium is low so we will do on 135 bath. Calcium is low but so is albumin. We will do him on a 3 calcium bath. Potassium is low as well. Will use a 4 potassium bath. Phosphorus is low. He was supplemented by Dr. Lopez . I will repeat a renal panel now and the nurse will call me with the results so we can supplement again if needed. Since calcium is low we will check a vitamin-D level Magnesium is Normal today. (7) Urinary tract infection: Qualifiers: Hematuria presence: with hematuria Urinary tract infection type: site unspecified Qualified Code(s): N39.0 - Urinary tract infection, site not specified; R31.9 - Hematuria, unspecified Code(s): N39.0 - Urinary tract infection, site not specified Status: Acute Assessment and Plan: urine culture negative. Subjective Date/time seen: 10/23/19 15:50 Interval history: Patient is on the ventilator. Comfortable on the ventilator. Unresponsive. the patient had dialysis yesterday. He is due for dialysis again today. Review of Systems Review of Systems: ROS unobtainable: Yes unobtainable due to medical condition Exam Narrative: Exam Narrative: Exam Narrative: Well developed well-nourished gentleman lying in the ICU bed on the ventilator. He is sedated. Skin No rash Head normocephalic atraumatic Lungs symmetric and coarse bilaterally. Heart irregular rate and rhythm without rub or gallop Abdomen bowel sounds absent. soft. Two drains in Extremities 2+ presacral edema Objective Data Vital Signs Vital Signs: Vital Signs - 24 hr 10/22/19 17:15 10/22/19 18:00 10/22/19 19:49 Temperature 36.5 C Pulse Rate 98 98 95 Respiratory Rate 22 H Blood Pressure 126/61 Pulse Oximetry 98 97 97 10/22/19 20:00 10/22/19 22:00 10/22/19 22:58 Temperature 36.2 C L Pulse Rate 100 102 H 97 Respiratory Rate 29 H 29 H Blood Pressure 128/57 L 136/52 L Pulse Oximetry 98 98 98 10/23/19 00:00 10/23/19 01:59 10/23/19 02:00 Temperature 36.7 C Pulse Rate 103 H 102 H 102 H Respiratory Rate 29 H Blood Pressure 178/84 H Pulse Oximetry 99 98 10/23/19 03:00 10/23/19 05:28 10/23/19 08:00 Temperature 36.8 C 36.9 C Pulse Rate 102 H 102 H 105 H Respiratory Rate 20 20 Blood Pressure 170/64 H 130/71 Pulse Oximetry 100 97 100 10/23/19 08:30 10/23/19 10:00 10/23/19 11:09 Temperature Pulse Rate 102 H 108 H 102 H Respiratory Rate 24 H Blood Pressure 142/55 H Pul
[2019-10-23] MEDS: SILVERGEL (ELTA) 45 ML 1 APPLIC TOPICAL (16:05)
[2019-10-23 16:31] LABS: Albumin Level 1.8 g/dL (3.5-5.1); Anion Gap 6 mmol/L (8-16); Blood Urea Nitrogen 24 mg/dL (9-20); Calcium 6.5 mg/dL (8.4-10.2); Carbon Dioxide 27 mmol/L (22-30); Chloride 93 mmol/L (98-107); Estimated CRCL calculation 26 ml/min; Estimated Glomerular Filt Rate 31; Glucose 160 mg/dL (75-110); Potassium 3.4 mmol/L (3.4-5.0); Sodium 126 mmol/L (137-145)
[2019-10-23 18:20] LABS: Vitamin D 25 Hydroxy < 12.8 ng/mL
[2019-10-23] MEDS: POTASSIUM PHOS,M-BASIC-D-BASIC 20 MMOL in SODIUM CHLORIDE 0.9% IV 250 ML 62.5 MMOL IVPB (20:44)
[2019-10-23] MEDS: DEXTROSE 10% 1,000 ML 30 ML IV CONT (21:07)
[2019-10-24] VITALS (36 sets, daily range): BP systolic 81–131; BP diastolic 42–98; PULSE 98–119; RESP 16–27; TEMP 36.5–37.7; O2SAT 94–100
[2019-10-24 00:09] LABS: Glucose Point of Care 128 (65-105)
[2019-10-24] MEDS: metroNIDAZOLE 500 MG/ISO 100ML 500 MG/100 ML BAG 100 MG IVPB ×3 (00:11→12:28)
[2019-10-24 04:25] LABS: Alveolar/Arterial O2 Gradient 106.4 mmHg; Base Excess ABG 0.1 mEq/l (+/-2.0); Carboxyhemoglobin 0.3 % THb (0-2.0); Fractional Inspired Oxygen 30 %; HCO3 ABG 23.3 mEq/l (22.0-26.0); Methemoglobin ABG 0.2 %THb (0-1.5); Oxygen Content ABG 13.8 %vol (16.0-22.0); Oxygen Saturation ABG 95.1 % (95.0-100.0); Oxyhemoglobin 93.7 % THb (90.0-100.0); PCO2 ABG 32.5 mmHg (35.0-45.0); PO2 ABG 69.3 mmHg (80.0-100.0); PO2 FiO2 Ratio Arterial Blood 2.31 %; Reduced Hemoglobin 5.8 %THb (0-5.0); Total Hemoglobin 10.4 g/dL (12.0-18.0); pH ABG 7.473 (7.350-7.450)
[2019-10-24 04:26] LABS: Device VENTILATOR; Site Drawn RIGHT BRACHIAL
[2019-10-24 04:28] LABS: Arterial Blood Gas PEEP 5 cmH2O; Arterial Blood Gas Vent Mode ASV
[2019-10-24 05:54] LABS: Hematocrit 27.1 % (42.0-52.0); Hemoglobin 8.8 g/dL (14.0-18.0); Immature Platelet Fraction Pct 10.4 % (0.9-11.2); Mean Corpuscular HGB Conc 32.5 g/dl (32-36); Mean Corpuscular Hemoglobin 31.9 pg (26-34); Mean Corpuscular Volume 98.2 fl (80-100); Mean Platelet Volume 12.2 fl (7.4-10.4); Platelet Count Result 165 k/mm3 (150-375); Red Blood Count 2.76 M/mm3 (4.6-6.20); Red Cell Distribution Width 18.7 % (11.5-14.5); White Blood Count 40.6 K/mm3 (4.5-10.0)
[2019-10-24] MEDS: CENTRAL LINE FLUSH 10 ML IV PUSH ×3 (05:55→21:58)
[2019-10-24] MEDS: LEVOTHYROXINE SODIUM 75 MCG TABLET PO (05:57)
[2019-10-24] MEDS: HEPARIN SODIUM 5,000 UNITS/ML VIAL 5000 UNITS SUB-Q ×3 (05:59→21:58)
[2019-10-24 06:05] LABS: INR 2.1; Partial Thromboplastin Time 42.5 SECONDS (22.3-36.8); Prothrombin Time 23.4 Seconds (11.1-14.7)
[2019-10-24 06:09] LABS: Anion Gap 8 mmol/L (8-16); Blood Urea Nitrogen 24 mg/dL (9-20); Calcium 6.5 mg/dL (8.4-10.2); Carbon Dioxide 25 mmol/L (22-30); Chloride 95 mmol/L (98-107); Estimated CRCL calculation 22 ml/min; Estimated Glomerular Filt Rate 31; Glucose 138 mg/dL (75-110); Lactic Acid 2.4 mmol/L (0.7-2.1); Magnesium 1.8 mg/dL (1.6-2.3); Phosphorus 2.9 mg/dL (2.5-4.5); Potassium 3.5 mmol/L (3.4-5.0); Sodium 128 mmol/L (137-145)
[2019-10-24] MEDS: AZTREONAM 1 GM in DEXTROSE 5% IN WATER 50 ML IVPB (08:32)
[2019-10-24] MEDS: FLUTICASONE PROPIONATE 0.05% NA SPR 16 GM BTL (*BKC) 2 SPRAY NASAL (08:35)
[2019-10-24] MEDS: ACIDOPHILUS/BULGARICUS CHEWABLE TABLET 1 TABLET PO (08:36)
[2019-10-24] MEDS: PANTOPRAZOLE SODIUM IV 40 MG VIAL IV PUSH ×2 (08:37→21:58)
[2019-10-24] MEDS: PRAVASTATIN SODIUM 20 MG TABLET 80 MG PO (08:37)
[2019-10-24] MEDS: GABAPENTIN 100 MG CAPSULE 200 MG PO (08:37)
[2019-10-24] MEDS: SILVERGEL (ELTA) 45 ML 1 APPLIC TOPICAL (08:38)
[2019-10-24] MEDS: FLUCONAZOLE 200 MG/NACL 100 ML 200 MG/100 ML BAG 100 MG IVPB (08:40)
--- NOTE | 2019-10-24 10:25 | PM.PNGS ---
Progress Note: A&P Assessment and Plan (1) Peritoneal dialysis catheter infection: Code(s): T85.71XA - Infection and inflammatory reaction due to peritoneal dialysis catheter, initial encounter Status: Acute Assessment and Plan: catheter removed on October 20. SILVA drains show serosanguineous fluid. Peritoneal fluid cultures show yeast, Linda albicans. (2) Severe sepsis: Code(s): A41.9 - Sepsis, unspecified organism; R65.20 - Severe sepsis without septic shock Status: Acute Assessment and Plan: Fungal peritonitis, aspiration pneumonitis, on antifungal is a and anti microbial therapy. Remains on mechanical ventilator. (3) Peritonitis: Onset Date: ~10/2019 Code(s): K65.9 - Peritonitis, unspecified Status: Acute Assessment and Plan: Should improve with peritoneal dialysis catheter removed. Continue antifungal treatment. (4) ESRD (end stage renal disease) on dialysis: Code(s): N18.6 - End stage renal disease; Z99.2 - Dependence on renal dialysis Status: Acute Assessment and Plan: Patient to dialyze again today via right IJ tunneled central venous catheter. Subjective Subjective Date/Time Seen: 10/24/19 10:25 Post Op day: 1 Patient reports: other ( Patient intubated on mechanical ventilator) Review of Systems Review of Systems: ROS unobtainable: Yes unobtainable due to endotracheal tube and unobtainable due to medical condition Exam Neck: Neck: other ( right IJ tunneled dialysis catheter dry and intact.) GI: Inspection: incision ( Serosanguineous fluid from each SILVA drain, dressings dry.) and other ( Protuberant abdomen, possibly distended) GI Palp: Yes Soft to palpation Auscultation: absent bowel sounds Objective Data Vital Signs Vital Signs: Vital Signs - 24 hr 10/23/19 11:09 10/23/19 12:00 10/23/19 14:00 Temperature 36.9 C Pulse Rate 102 H 105 H 105 H Respiratory Rate 24 H 22 H Blood Pressure 129/64 130/64 Pulse Oximetry 100 98 97 10/23/19 14:54 10/23/19 16:00 10/23/19 16:30 Temperature 36.8 C 36.9 C Pulse Rate 103 H 103 H 101 H Respiratory Rate 21 H 25 H Blood Pressure 104/56 L 105/55 L Pulse Oximetry 97 97 97 10/23/19 17:23 10/23/19 18:00 10/23/19 20:00 Temperature 37.7 C H Pulse Rate 104 H 106 H 103 H Respiratory Rate 22 H 19 Blood Pressure 118/61 113/53 L Pulse Oximetry 97 93 95 10/23/19 20:34 10/23/19 22:00 10/23/19 23:23 Temperature Pulse Rate 108 H 110 H 109 H Respiratory Rate 21 H Blood Pressure 123/56 L Pulse Oximetry 96 97 94 10/24/19 00:00 10/24/19 02:00 10/24/19 03:00 Temperature 37.7 C H Pulse Rate 105 H 106 H 107 H Respiratory Rate 25 H 22 H Blood Pressure 106/68 126/54 L Pulse Oximetry 100 100 100 10/24/19 04:00 10/24/19 04:35 10/24/19 06:00 Temperature 36.5 C Pulse Rate 103 H 107 H 107 H Respiratory Rate 27 H 27 H Blood Pressure 98/55 L 113/66 Pulse Oximetry 97 99 99 10/24/19 08:00 10/24/19 08:10 10/24/19 10:00 Temperature 36.9 C Pulse Rate 100 100 106 H Respiratory Rate 20 20 Blood Pressure 109/56 L 127/66 Pulse Oximetry 100 100 94 Intake/Output Intake/Output: Intake & Output 10/21/19 10/22/19 10/23/19 10/24/19 23:59 23:59 23:59 23:59 Intake Total 4063.6667 2491 2056.7 1001 Output Total 1155 3110 155 115 Balance 2908.6667 -619 1901.7 886 Meds/Results Medications: Active Medications Generic Name Dose Route Start Last Admin Trade Name Freq PRN Reason Stop Dose Admin Bisacodyl 10 mg 10/14/19 17:03 10/16/19 17:51 Dulcolax Suppository RECTAL 10 mg QAM PRN Administration Constipation Dextrose 12.5 gm 10/16/19 20:09 10/23/19 08:56 Dextrose 50% Syringe IV PUSH 12.5 gm PRN PRN Administration Hypoglycemia Protocol Epoetin Avni-epbx 10,000 units 10/24/19 19:00 Retacrit IV PUSH 10/24/19 19:01 ONCE ONE Fluticasone Propionate 2 spray 10/16/19 09:00 10/24/19 08:35
--- NOTE | 2019-10-24 11:21 | PM.PNNEP ---
Progress Note: A&P Assessment and Plan (1) ESRD (end stage renal disease) on dialysis: Code(s): N18.6 - End stage renal disease; Z99.2 - Dependence on renal dialysis Status: Acute Assessment and Plan: converted to hemodialysis given #2 poor HD treatment yesterday HD today with focus on pushing fluid removal as tolerated follow electrolytes, volume status, and clearance (2) Peritonitis (acute) generalized: Code(s): K65.0 - Generalized (acute) peritonitis Status: Acute Assessment and Plan: cultures growing yeast s/p PD catheter removal and washout drains in place antibiotics/antifungals as outlined by Infectious Disease continue supportive therapy (3) Hyponatremia: Onset Date: Unknown Code(s): E87.1 - Hypo-osmolality and hyponatremia Status: Acute Assessment and Plan: partly due to ESRD slow improvent with hemodialysis follow trend (4) Cardiorespiratory arrest: Code(s): I46.9 - Cardiac arrest, cause unspecified Status: Acute Assessment and Plan: presumably precipitated by aspiration remains on mechanical ventilation (5) Aspiration pneumonia: Code(s): J69.0 - Pneumonitis due to inhalation of food and vomit Status: Acute Assessment and Plan: on antibiotics intubated and on mechanical ventilation possibly need for tracheostomy (?) (6) Encephalopathy: Code(s): G93.40 - Encephalopathy, unspecified Status: Acute Assessment and Plan: off sedation due to #4 (?) EEG results noted continue supportive care Discussed with Dr. Lopez. Will continue to follow. Subjective Date/time seen: 10/24/19 11:21 Did not get a full dialysis treatment yesterday due to problems with HD machine; remains intubated but off sedation; remains hemodynamically stable; no other acute issues or problems overnight or earlier today; due for dialysis again later today. Exam Narrative: Exam Narrative: General: WD/WN male - intubated/sedated Heart: normal S1 and S2; no rub Lungs: crackles at bases and diminished breath sonds Abdomen: soft, nontender, nondistended, positive bowel sounds Extremities: no cyanosis or clubbing; anasarca (edema in upper and lower extremities as well as abdominal wall) Skin: warm and dry Objective Data Vital Signs Vital Signs: Vital Signs Temp Pulse Resp BP Pulse Ox 10/24/19 10:00 106 H 20 127/66 94 10/24/19 08:10 100 100 10/24/19 08:00 36.9 C 100 20 109/56 L 100 10/24/19 06:00 107 H 27 H 113/66 99 10/24/19 04:35 107 H 99 10/24/19 04:00 36.5 C 103 H 27 H 98/55 L 97 10/24/19 03:00 107 H 100 10/24/19 02:00 106 H 22 H 126/54 L 100 10/24/19 00:00 37.7 C H 105 H 25 H 106/68 100 10/23/19 23:23 109 H 94 10/23/19 22:00 110 H 21 H 123/56 L 97 10/23/19 20:34 108 H 96 10/23/19 20:00 37.7 C H 103 H 19 113/53 L 95 10/23/19 18:00 106 H 22 H 118/61 93 10/23/19 17:23 104 H 97 10/23/19 16:30 36.9 C 101 H 25 H 105/55 L 97 10/23/19 16:00 36.8 C 103 H 21 H 104/56 L 97 10/23/19 14:54 103 H 97 10/23/19 14:00 105 H 22 H 130/64 97 10/23/19 12:00 36.9 C 105 H 24 H 129/64 98 Intake/Output Intake/Output: Intake & Output 10/21/19 10/22/19 10/23/19 10/24/19 23:59 23:59 23:59 23:59 Intake Total 4063.6667 2491 2056.7 1001 Output Total 1155 3110 155 115 Balance 2908.6667 -619 1901.7 886 Meds/Results Medications: Active Medications Generic Name Dose Route Start Last Admin Trade Name Freq PRN Reason Stop Dose Admin Bisacodyl 10 mg 10/14/19 17:03 10/16/19 17:51 Dulcolax Suppository RECTAL 10 mg QAM PRN Administration Constipation Dextrose 12.5 gm 10/16/19 20:09 10/23/19 08:56 Dextrose 50% Syringe IV PUSH 12.5 gm PRN PRN Administration Hypoglycemia Protocol Epoetin Avni-epbx 10,000 units 10/24/19 19:00 Retac
--- NOTE | 2019-10-24 11:29 | WPDINTPN ---
Progress Note: A&P Assessment and Plan (1) Severe sepsis: Code(s): A41.9 - Sepsis, unspecified organism; R65.20 - Severe sepsis without septic shock Status: Acute Assessment and Plan: patient initially presented with septic shock,OFF LEVOPHED since 2:00 a.m. on 10/16/2019 - now with severe sepsis with elevated white blood cell count, initial lactic acidosis which has resolved - peritoneal cultures growing Yeast - continue IV vancomycin, aztreonam, metronidazole and fluconazole - appreciate infectious disease following the patient - leukocytosis gradually improving - CT scan of the abdomen and pelvis on 10/16 showed interval progression of patchy bilateral airspace disease, compatible pneumonia. Bilateral pleural effusions right greater than left moderate ascites which appears loculated the left upper abdomen, cannot exclude peritonitis, abdominal wall thickening suspicious for cystitis. peritoneal dialysis catheter present in the pelvis - 10/19/2019 peritoneal fluid Gram stain , no organism seen - 10/19/2019 peritoneal fluid culture, growing YEAST - 10/18/2019 blood cultures negative x2 - 10/21/2019 repeat peritoneal cultures and peritoneal catheter cultures have been sent (2) Peritonitis: Onset Date: ~10/2019 Code(s): K65.9 - Peritonitis, unspecified Status: Acute Assessment and Plan: patient with peritonitis, likely fungal peritonitis - status post removal of peritoneal dialysis catheter on 10/21/2019, Catheter and peritoneal fluid sent for culture - SILVA drains x2 draining serosanguineous fluid, surgery following the patient - appreciate infectious disease following the patient - continue IV vancomycin, aztreonam, metronidazole and fluconazole (3) Encephalopathy: Code(s): G93.40 - Encephalopathy, unspecified Status: Acute Assessment and Plan: patient has been off sedation since 10/17/2019 afternoon. - encephalopathy likely multifactorial related to metabolic /uremic encephalopathy, infectious encephalopathy, medication related - neurology has been consulted and appreciate their evaluation and recommendations - EEG was done on 10/20/2019 and discussed with Neurology, EEG had significant slowing, likely related to severe encephalopathy. No epileptiform discharges were seen - patient did have a CT scan of the brain on 10/18/2019: was negative for any acute intracranial pathology (4) Aspiration pneumonia: Code(s): J69.0 - Pneumonitis due to inhalation of food and vomit Status: Acute Assessment and Plan: worsening chest x-ray likely related to pneumonia, volume overload - continue antibiotics as above - patient on mechanical ventilation With ASV peep of 5, 30% FiO2 - chest x-ray any ABGs reviewed - currently off all sedation since 2:00 p.m. on 10/17/2019, patient does not open his eyes or follow simple commands - patient volume overloaded, continue dialysis - will require ultrasound-guided thoracentesis at some point. (5) Cardiorespiratory arrest: Code(s): I46.9 - Cardiac arrest, cause unspecified Status: Acute Assessment and Plan: PEA arrest likely due aspiration,ROSC after 1 round of epinephrine - post arrest pt was following commands and so did not require hypothermia protocol - trops elevated to 0.40 likely due to cardiac arrest (6) Colitis: Code(s): K52.9 - Noninfective gastroenteritis and colitis, unspecified Status: Acute Assessment and Plan: RESOLVED - patient presented with abdominal pain, nausea, vomiting and diarrhea, CT scan of the abdomen and pelvis on 10/13/2019 showed sigmoid colon wall thickening is consistent with colitis. Repeat CT abdomen pelvis on 10/17/2019 did not show any evidence of mesenteric ischemia. He does have ascites and 1 pocket of ascites seems to be loculated, possible peritonitis, bladder wall thickening suspicion for cystitis - continue antibioti
[2019-10-24 12:33] LABS: Glucose Point of Care 191 (65-105)
--- NOTE | 2019-10-24 15:41 | PM.IMPN ---
Progress Note: A&P Assessment and Plan (1) Septic shock: Code(s): A41.9 - Sepsis, unspecified organism; R65.21 - Severe sepsis with septic shock Status: Deleted Assessment and Plan: 10/24/19 15:41 patient is 78-year-old male with history of end-stage renal disease on peritoneal dialysis presented emergency department had a cardiac arrest ROSC after 1 round of epinephrine per protocol ROSC, with shortness of breath and hypoxic patient was intubated currently on vent, patient may have aspirated pneumonia, patient in septic shock and on pressor, patient being treated with Levaquin, vancomycin and Flagyl, discussed with bread stacker prognosis is poor we appreciate bread stacker, patient is seen by Dr. Aguilar nephrology for peritoneal dialysis, Poured Pipe Maker had spoken with patient's , she would like to keep full code and continue to treat the patient. septic shock resolved and patient is off Levophed, septic shock most likely secondary to aspiration pneumonia possibly peritonitis and treated with Flagyl cefepime and ceftazidime intraperitoneal by nephrology, patient is his leukocytosis etiology uncertain seen by Dr. Rowe and bread stacker, stopped all antibiotic and has started the patient vancomycin and aztreonam, meanwhile patient was seen by surgery and peritoneal dialysis catheter was removed and now patient is on hemodialysis,workup is in progress patient clinically stable on vent, patient is seen by intensive, Dr. Rowe, ID Dr. Aguilar nephrology and General surgery team, discussed with bread stacker today, patient will need additional dialysis, further recommendation to follow. (2) Cardiorespiratory arrest: Code(s): I46.9 - Cardiac arrest, cause unspecified Status: Acute Assessment and Plan: after 1 round of epinephrine per protocol ROSC, (3) Aspiration pneumonia: Code(s): J69.0 - Pneumonitis due to inhalation of food and vomit Status: Acute Assessment and Plan: during suction bile was seen most likely patient had aspirated resulting in pneumonia (4) Atrial fibrillation: Onset Date: ~09/2019 Code(s): I48.91 - Unspecified atrial fibrillation Status: Acute (5) Hyponatremia: Onset Date: Unknown Code(s): E87.1 - Hypo-osmolality and hyponatremia Status: Acute Assessment and Plan: rate is controlled (6) Abnormal computed tomography of abdomen and pelvis: Code(s): R93.5 - Abnormal findings on diagnostic imaging of other abdominal regions, including retroperitoneum Status: Acute Assessment and Plan: suspect peritonitis (7) Peritonitis (acute) generalized: Code(s): K65.0 - Generalized (acute) peritonitis Status: Acute Assessment and Plan: patient on peritoneal dialysis,patient is being treated with antibiotics Subjective Date/time seen: 10/24/19 15:41 patient is 78-year-old male with history of end-stage renal disease on peritoneal dialysis presented emergency department had a cardiac arrest ROSC after 1 round of epinephrine per protocol ROSC, with shortness of breath and hypoxic patient was intubated currently on vent, patient may have aspirated pneumonia, patient in septic shock and on pressor, patient being treated with Levaquin, vancomycin and Flagyl, discussed with bread stacker prognosis is poor we appreciate bread stacker, patient is seen by Dr. Aguilar nephrology for peritoneal dialysis, Poured Pipe Maker had spoken with patient's , she would like to keep full code and continue to treat the patient. septic shock resolved and patient is off Levophed, septic shock most likely secondary to aspiration pneumonia possibly peritonitis and treated with Flagyl cefepime and ceftazidime intraperitoneal by nephrology, patient is his leukocytosis etiology uncertain seen by Dr. Rowe and bread stacker, stopped all antibiotic and has started the patient vancomycin and aztreonam, meanwhile patient was se
[2019-10-24 17:19] LABS: Glucose Point of Care 171 (65-105)
[2019-10-24] MEDS: EPOETIN ALFA-EPBX 10,000 UNITS/ML VIAL 10000 UNITS IV PUSH (20:19)
[2019-10-24 23:10] LABS: Vancomycin Random 13.6 ug/mL (10-20)
[2019-10-25] VITALS (19 sets, daily range): BP systolic 96–135; BP diastolic 45–61; PULSE 100–115; RESP 21–32; TEMP 36.8–37.9; O2SAT 98–100
[2019-10-25] MEDS: metroNIDAZOLE 500 MG/ISO 100ML 500 MG/100 ML BAG 100 MG IVPB ×5 (01:06→23:25)
[2019-10-25 01:15] LABS: Glucose Point of Care 142 (65-105)
[2019-10-25 03:23] LABS: Alveolar/Arterial O2 Gradient 111.3 mmHg; Base Excess ABG 0.9 mEq/l (+/-2.0); Carboxyhemoglobin 0.1 % THb (0-2.0); Fractional Inspired Oxygen 30 %; HCO3 ABG 24.6 mEq/l (22.0-26.0); Methemoglobin ABG 0.4 %THb (0-1.5); Oxygen Content ABG 13.2 %vol (16.0-22.0); Oxygen Saturation ABG 92.5 % (95.0-100.0); Oxyhemoglobin 90.9 % THb (90.0-100.0); PCO2 ABG 35.9 mmHg (35.0-45.0); PO2 ABG 60.4 mmHg (80.0-100.0); PO2 FiO2 Ratio Arterial Blood 2.01 %; Reduced Hemoglobin 8.6 %THb (0-5.0); Total Hemoglobin 10.3 g/dL (12.0-18.0); pH ABG 7.454 (7.350-7.450)
[2019-10-25 03:24] LABS: Device VENTILATOR; Modified Allen's Test Pass; Site Drawn RIGHT RADIAL
[2019-10-25 03:25] LABS: Arterial Blood Gas PEEP 5 cmH2O; Arterial Blood Gas Vent Mode ASV
[2019-10-25] MEDS: DEXTROSE 10% 1,000 ML 30 ML IV CONT (06:20)
[2019-10-25 06:21] LABS: Hematocrit 26.9 % (42.0-52.0); Hemoglobin 8.6 g/dL (14.0-18.0); Immature Platelet Fraction Pct 12.2 % (0.9-11.2); Mean Corpuscular Hemoglobin 31.9 pg (26-34); Mean Corpuscular Volume 99.6 fl (80-100); Mean Platelet Volume 12.2 fl (7.4-10.4); Platelet Count Result 161 k/mm3 (150-375); White Blood Count 33.1 K/mm3 (4.5-10.0)
[2019-10-25] MEDS: HEPARIN SODIUM 5,000 UNITS/ML VIAL 5000 UNITS SUB-Q ×3 (06:23→23:21)
[2019-10-25] MEDS: CENTRAL LINE FLUSH 10 ML IV PUSH ×3 (06:24→23:21)
[2019-10-25] MEDS: LEVOTHYROXINE SODIUM 75 MCG TABLET PO (06:25)
[2019-10-25 06:33] LABS: Lactic Acid 2.9 mmol/L (0.7-2.1)
[2019-10-25 06:36] LABS: Anion Gap 7 mmol/L (8-16); Blood Urea Nitrogen 20 mg/dL (9-20); Calcium 6.9 mg/dL (8.4-10.2); Carbon Dioxide 26 mmol/L (22-30); Chloride 96 mmol/L (98-107); Estimated CRCL calculation 29 ml/min; Estimated Glomerular Filt Rate 37; Glucose 217 mg/dL (75-110); Magnesium 1.7 mg/dL (1.6-2.3); Phosphorus 2.6 mg/dL (2.5-4.5); Potassium 3.6 mmol/L (3.4-5.0); Sodium 129 mmol/L (137-145)
[2019-10-25] MEDS: ACIDOPHILUS/BULGARICUS CHEWABLE TABLET 1 TABLET PO (08:41)
[2019-10-25] MEDS: AZTREONAM 1 GM in DEXTROSE 5% IN WATER 50 ML IVPB (08:41)
[2019-10-25] MEDS: FLUTICASONE PROPIONATE 0.05% NA SPR 16 GM BTL (*BKC) 2 SPRAY NASAL (08:42)
[2019-10-25] MEDS: FLUCONAZOLE 200 MG/NACL 100 ML 200 MG/100 ML BAG 100 MG IVPB (08:42)
[2019-10-25] MEDS: PRAVASTATIN SODIUM 20 MG TABLET 80 MG PO (08:43)
[2019-10-25] MEDS: PANTOPRAZOLE SODIUM IV 40 MG VIAL IV PUSH ×2 (08:43→20:05)
[2019-10-25] MEDS: GABAPENTIN 100 MG CAPSULE 200 MG PO (08:43)
[2019-10-25] MEDS: SILVERGEL (ELTA) 45 ML 1 APPLIC TOPICAL (08:44)
[2019-10-25 11:49] LABS: Glucose Point of Care 276 (65-105)
--- NOTE | 2019-10-25 11:59 | WPDINTPN ---
Progress Note: A&P Assessment and Plan (1) Severe sepsis: Code(s): A41.9 - Sepsis, unspecified organism; R65.20 - Severe sepsis without septic shock Status: Acute Assessment and Plan: patient initially presented with septic shock,OFF LEVOPHED since 2:00 a.m. on 10/16/2019 - now with severe sepsis with elevated white blood cell count, initial lactic acidosis which has resolved - peritoneal cultures growing Yeast - continue IV aztreonam, metronidazole and fluconazole - appreciate infectious disease following the patient - leukocytosis gradually improving - CT scan of the abdomen and pelvis on 10/16 showed interval progression of patchy bilateral airspace disease, compatible pneumonia. Bilateral pleural effusions right greater than left moderate ascites which appears loculated the left upper abdomen, cannot exclude peritonitis, abdominal wall thickening suspicious for cystitis. peritoneal dialysis catheter present in the pelvis - 10/19/2019 peritoneal fluid Gram stain , no organism seen - 10/19/2019 peritoneal fluid culture, growing Linda albicans - 10/18/2019 blood cultures negative x2 - 10/21/2019 repeat peritoneal cultures and peritoneal catheter cultures growing Linda albicans (2) Peritonitis: Onset Date: ~10/2019 Code(s): K65.9 - Peritonitis, unspecified Status: Acute Assessment and Plan: patient with peritonitis, likely fungal peritonitis - status post removal of peritoneal dialysis catheter on 10/21/2019, Catheter and peritoneal fluid sent for culture - SILVA drains x2 draining serosanguineous fluid, surgery following the patient - appreciate infectious disease following the patient - continue IV aztreonam, metronidazole and fluconazole (3) Encephalopathy: Code(s): G93.40 - Encephalopathy, unspecified Status: Acute Assessment and Plan: PERSISTS: patient has been off sedation since 10/17/2019 afternoon. - encephalopathy likely multifactorial related to metabolic /uremic encephalopathy, infectious encephalopathy, medication related - neurology has been consulted and appreciate their evaluation and recommendations - EEG was done on 10/20/2019 and discussed with Neurology, EEG had significant slowing, likely related to severe encephalopathy. No epileptiform discharges were seen - patient did have a CT scan of the brain on 10/18/2019: was negative for any acute intracranial pathology (4) Aspiration pneumonia: Code(s): J69.0 - Pneumonitis due to inhalation of food and vomit Status: Acute Assessment and Plan: - continue antibiotics as above - patient on mechanical ventilation With ASV peep of 5, 30% FiO2 - chest x-ray any ABGs reviewed - currently off all sedation since 2:00 p.m. on 10/17/2019, - Opens his eyes but not tracking ir following commands - patient volume overloaded, continue dialysis - will require ultrasound-guided thoracentesis at some point. PLAVIX being held for thoracentesis per interventional radiology (5) Cardiorespiratory arrest: Code(s): I46.9 - Cardiac arrest, cause unspecified Status: Acute Assessment and Plan: PEA arrest likely due aspiration,ROSC after 1 round of epinephrine - post arrest pt was following commands and so did not require hypothermia protocol - trops elevated to 0.40 likely due to cardiac arrest (6) Colitis: Code(s): K52.9 - Noninfective gastroenteritis and colitis, unspecified Status: Acute Assessment and Plan: RESOLVED - patient presented with abdominal pain, nausea, vomiting and diarrhea, CT scan of the abdomen and pelvis on 10/13/2019 showed sigmoid colon wall thickening is consistent with colitis. Repeat CT abdomen pelvis on 10/17/2019 did not show any evidence of mesenteric ischemia. He does have ascites and 1 pocket of ascites seems to be loculated, possible peritonitis, bladder wall thickening suspicion for cystitis - continue
[2019-10-25] MEDS: INSULIN ASPART (*BKC) 100 UNITS/ML SUB-Q ×2 (12:22→18:13)
--- NOTE | 2019-10-25 15:51 | PM.PNNEP ---
Progress Note: A&P Assessment and Plan (1) ESRD (end stage renal disease) on dialysis: Code(s): N18.6 - End stage renal disease; Z99.2 - Dependence on renal dialysis Status: Acute Assessment and Plan: converted to hemodialysis given # HD yesterday with focus on pushing fluid removal as tolerated follow electrolytes, volume status, and clearance next HD tomorrow or Saturday(?) (2) Peritonitis (acute) generalized: Code(s): K65.0 - Generalized (acute) peritonitis Status: Acute Assessment and Plan: cultures growing yeast s/p PD catheter removal and washout drains in place antibiotics/antifungals as outlined by Infectious Disease continue supportive therapy (3) Hyponatremia: Onset Date: Unknown Code(s): E87.1 - Hypo-osmolality and hyponatremia Status: Acute Assessment and Plan: partly due to ESRD slow improvent with hemodialysis follow trend (4) Cardiorespiratory arrest: Code(s): I46.9 - Cardiac arrest, cause unspecified Status: Acute Assessment and Plan: presumably precipitated by aspiration remains on mechanical ventilation (5) Aspiration pneumonia: Code(s): J69.0 - Pneumonitis due to inhalation of food and vomit Status: Acute Assessment and Plan: on antibiotics intubated and on mechanical ventilation possibly need for tracheostomy (?) (6) Encephalopathy: Code(s): G93.40 - Encephalopathy, unspecified Status: Acute Assessment and Plan: off sedation due to #4 (?) EEG results noted continue supportive care Will continue to follow. Subjective Date/time seen: 10/25/19 15:51 Tolerated hemodialysis treatment yesterday without any issues or problems; mentation still back to baseline despite being off sedation; no apparent distress noted. Exam Narrative: Exam Narrative: General: WD/WN male - intubated/sedated Heart: normal S1 and S2; no rub Lungs: crackles at bases and diminished breath sonds Abdomen: soft, nontender, nondistended, positive bowel sounds Extremities: no cyanosis or clubbing; anasarca (edema in upper and lower extremities as well as abdominal wall) Skin: warm and intact Objective Data Vital Signs Vital Signs: Vital Signs Temp Pulse Resp BP Pulse Ox 10/25/19 14:00 104 H 24 H 98/48 L 99 10/25/19 13:45 105 H 100 10/25/19 12:00 37.9 C H 106 H 31 H 108/58 L 100 10/25/19 10:00 108 H 22 H 121/60 100 10/25/19 08:15 115 H 100 10/25/19 08:00 37.3 C 107 H 27 H 109/60 100 10/25/19 06:00 111 H 30 H 101/56 L 99 10/25/19 04:00 36.8 C 111 H 27 H 110/51 L 99 10/25/19 03:13 111 H 98 10/25/19 02:00 113 H 28 H 109/45 L 99 10/25/19 01:44 112 H 99 10/25/19 00:00 36.8 C 109 H 21 H 96/54 L 99 10/24/19 22:50 37.1 C 112 H 24 H 105/52 L 99 10/24/19 22:33 118 H 98 10/24/19 22:00 107 H 10/24/19 21:55 37.1 C 104 H 24 H 95/46 L 99 10/24/19 21:39 112 H 105/52 L 10/24/19 21:30 110 H 105/52 L 10/24/19 21:15 108 H 81/50 L 10/24/19 21:00 111 H 89/51 L 10/24/19 20:45 114 H 118/52 L 10/24/19 20:30 119 H 118/98 H 10/24/19 20:15 114 H 97/44 L 10/24/19 20:00 117 H 24 H 116/98 H 98 10/24/19 19:47 115 H 96/51 L 10/24/19 19:31 114 H 98 10/24/19 19:30 113 H 101/55 L 10/24/19 19:15 112 H 97/50 L 10/24/19 19:00 110 H 93/50 L 10/24/19 18:48 110 H 98/48 L 10/24/19 18:30 105 H 98/42 L 10/24/19 18:09 101 H 108/48 L 10/24/19 18:00 37.6 C 100 24 H 104/48 L 99 10/24/19 17:10 100 99 10/24/19 16:00 37.6 C 98 16 110/51 L 100 Intake/Output Intake/Output: Intake & Output 10/22/19 10/23/19 10/24/19 10/25/19 23:59 23:59 23:59 23:59 Intake Total 2491 2056.7 2069 2224 Output Total 3110 155 2267 85 Balance -619 1901.7 -198 2139 Meds/Results Medications: Active Medications G
--- NOTE | 2019-10-25 16:03 | PM.IMPN ---
Progress Note: A&P Assessment and Plan (1) Septic shock: Code(s): A41.9 - Sepsis, unspecified organism; R65.21 - Severe sepsis with septic shock Status: Deleted Assessment and Plan: 10/25/19 16:03 patient is 78-year-old male with history of end-stage renal disease on peritoneal dialysis presented emergency department had a cardiac arrest ROSC after 1 round of epinephrine per protocol ROSC, with shortness of breath and hypoxic patient was intubated currently on vent, patient may have aspirated pneumonia, patient in septic shock and on pressor, patient being treated with Levaquin, vancomycin and Flagyl, discussed with electronic industrial controls mechanic prognosis is poor we appreciate electronic industrial controls mechanic, patient is seen by Dr. Aguilar nephrology for peritoneal dialysis, Collections Manager had spoken with patient's , she would like to keep full code and continue to treat the patient. septic shock resolved and patient is off Levophed, septic shock most likely secondary to aspiration pneumonia possibly peritonitis and treated with Flagyl cefepime and ceftazidime intraperitoneal by nephrology, patient is his leukocytosis etiology uncertain seen by Dr. Rowe and electronic industrial controls mechanic, stopped all antibiotic and has started the patient vancomycin and aztreonam, meanwhile patient was seen by surgery and peritoneal dialysis catheter was removed and now patient is on hemodialysis,workup is in progress patient clinically stable on vent, patient is seen by intensive, Dr. Rowe, ID Dr. Aguilar nephrology and General surgery team, patient intubated had a dialysis yesterday and will have tomorrow, unable to wean the patient off the ventilator, patient will have a PEG and trach tomorrow and may need to be transferred to LTAC (2) Cardiorespiratory arrest: Code(s): I46.9 - Cardiac arrest, cause unspecified Status: Acute Assessment and Plan: after 1 round of epinephrine per protocol ROSC, (3) Aspiration pneumonia: Code(s): J69.0 - Pneumonitis due to inhalation of food and vomit Status: Acute Assessment and Plan: during suction bile was seen most likely patient had aspirated resulting in pneumonia (4) Atrial fibrillation: Onset Date: ~09/2019 Code(s): I48.91 - Unspecified atrial fibrillation Status: Acute (5) Hyponatremia: Onset Date: Unknown Code(s): E87.1 - Hypo-osmolality and hyponatremia Status: Acute Assessment and Plan: rate is controlled (6) Abnormal computed tomography of abdomen and pelvis: Code(s): R93.5 - Abnormal findings on diagnostic imaging of other abdominal regions, including retroperitoneum Status: Acute Assessment and Plan: suspect peritonitis (7) Peritonitis (acute) generalized: Code(s): K65.0 - Generalized (acute) peritonitis Status: Acute Assessment and Plan: patient on peritoneal dialysis,patient is being treated with antibiotics Subjective Date/time seen: 10/25/19 16:03 patient is 78-year-old male with history of end-stage renal disease on peritoneal dialysis presented emergency department had a cardiac arrest ROSC after 1 round of epinephrine per protocol ROSC, with shortness of breath and hypoxic patient was intubated currently on vent, patient may have aspirated pneumonia, patient in septic shock and on pressor, patient being treated with Levaquin, vancomycin and Flagyl, discussed with electronic industrial controls mechanic prognosis is poor we appreciate electronic industrial controls mechanic, patient is seen by Dr. Aguilar nephrology for peritoneal dialysis, Collections Manager had spoken with patient's , she would like to keep full code and continue to treat the patient. septic shock resolved and patient is off Levophed, septic shock most likely secondary to aspiration pneumonia possibly peritonitis and treated with Flagyl cefepime and ceftazidime intraperitoneal by nephrology, patient is his leukocytosis etiology uncertain seen by Dr. Rowe and electronic industrial controls mechanic, stopped all an
[2019-10-25 17:45] LABS: Glucose Point of Care 258 (65-105)
[2019-10-26] VITALS (41 sets, daily range): BP systolic 73–130; BP diastolic 40–83; PULSE 99–124; RESP 17–30; TEMP 36.1–37; O2SAT 99–100
[2019-10-26 00:15] LABS: Glucose Point of Care 228 (65-105)
[2019-10-26] MEDS: INSULIN ASPART (*BKC) 100 UNITS/ML SUB-Q ×2 (00:15→06:52)
[2019-10-26 04:45] LABS: Alveolar/Arterial O2 Gradient 68.5 mmHg; Base Excess ABG -1.6 mEq/l (+/-2.0); HCO3 ABG 21.4 mEq/l (22.0-26.0); Oxygen Saturation ABG 98.3 % (95.0-100.0); PCO2 ABG 30.2 mmHg (35.0-45.0); PO2 ABG 109.9 mmHg (80.0-100.0); Total Hemoglobin 10.2 g/dL (12.0-18.0); pH ABG 7.468 (7.350-7.450)
[2019-10-26 04:46] LABS: Oxygen Content ABG 14.2 %vol (16.0-22.0); Oxyhemoglobin 97.4 % THb (90.0-100.0)
[2019-10-26 04:47] LABS: Methemoglobin ABG 0.3 %THb (0-1.5)
[2019-10-26 04:48] LABS: Device VENTILATOR; Fractional Inspired Oxygen 30 %; Modified Allen's Test Pass; PO2 FiO2 Ratio Arterial Blood 3.66 %; Reduced Hemoglobin 2.3 %THb (0-5.0); Site Drawn RIGHT RADIAL
[2019-10-26 04:50] LABS: Arterial Blood Gas Minute Volume 6 LPM; Arterial Blood Gas PEEP 5 cmH2O; Arterial Blood Gas Vent Mode ASV
[2019-10-26] MEDS: HEPARIN SODIUM 5,000 UNITS/ML VIAL 5000 UNITS SUB-Q ×3 (06:29→21:09)
[2019-10-26] MEDS: metroNIDAZOLE 500 MG/ISO 100ML 500 MG/100 ML BAG 100 MG IVPB ×3 (06:29→17:45)
[2019-10-26] MEDS: CENTRAL LINE FLUSH 10 ML IV PUSH ×3 (06:30→21:09)
[2019-10-26] MEDS: LEVOTHYROXINE SODIUM 75 MCG TABLET PO (06:34)
[2019-10-26 06:43] LABS: Hematocrit 27.6 % (42.0-52.0); Hemoglobin 8.8 g/dL (14.0-18.0); Mean Corpuscular HGB Conc 31.9 g/dl (32-36); Mean Corpuscular Hemoglobin 32.1 pg (26-34); Mean Corpuscular Volume 100.7 fl (80-100); Platelet Count Result 170 k/mm3 (150-375); Red Blood Count 2.74 M/mm3 (4.6-6.20); Red Cell Distribution Width 20.4 % (11.5-14.5); White Blood Count 25.5 K/mm3 (4.5-10.0)
[2019-10-26 06:51] LABS: Glucose Point of Care 264 (65-105)
[2019-10-26 07:10] LABS: Alanine Aminotransferase 32 U/L (4-50); Albumin Level 1.9 g/dL (3.5-5.1); Alkaline Phosphatase 278 U/L (38-126); Anion Gap 10 mmol/L (8-16); Aspartate Amino Transferase 71 U/L (17-59); Bilirubin,Total 0.6 mg/dL (0.2-1.3); Blood Urea Nitrogen 33 mg/dL (9-20); Calcium 6.7 mg/dL (8.4-10.2); Carbon Dioxide 23 mmol/L (22-30); Chloride 94 mmol/L (98-107); Estimated CRCL calculation 22 ml/min; Estimated Glomerular Filt Rate 26; Glucose 262 mg/dL (75-110); Magnesium 1.7 mg/dL (1.6-2.3); Phosphorus 3.3 mg/dL (2.5-4.5); Potassium 3.3 mmol/L (3.4-5.0); Sodium 127 mmol/L (137-145)
--- NOTE | 2019-10-26 07:15 | WPDINTPN ---
Progress Note: A&P Assessment and Plan (1) Severe sepsis: Code(s): A41.9 - Sepsis, unspecified organism; R65.20 - Severe sepsis without septic shock Status: Acute Assessment and Plan: and septic shock secondary to fungal peritonitis and PNA - OFF LEVOPHED since 2:00 a.m. on 10/16/2019 - peritoneal cultures growing Yeast - continue IV vancomycin, aztreonam, metronidazole and fluconazole - appreciate infectious disease following the patient - leukocytosis gradually improving - CT scan of the abdomen and pelvis on 10/16 showed interval progression of patchy bilateral airspace disease, compatible pneumonia. Bilateral pleural effusions right greater than left moderate ascites which appears loculated the left upper abdomen, cannot exclude peritonitis, abdominal wall thickening suspicious for cystitis. peritoneal dialysis catheter present in the pelvis - 10/19/2019 peritoneal fluid Gram stain , no organism seen - 10/19/2019 peritoneal fluid culture, growing Linda albicans - 10/18/2019 blood cultures negative x2 - 10/21/2019 repeat peritoneal cultures and peritoneal catheter cultures growing Linda albicans (2) Peritonitis: Onset Date: ~10/2019 Code(s): K65.9 - Peritonitis, unspecified Status: Acute Assessment and Plan: Linda peritnoitis - status post removal of peritoneal dialysis catheter on 10/21/2019, Catheter and peritoneal fluid sent for culture - SILVA drains x2 draining serosanguineous fluid, surgery following the patient - appreciate infectious disease following the patient - continue IV aztreonam, metronidazole and fluconazole (3) Acute respiratory failure: Code(s): J96.00 - Acute respiratory failure, unspecified whether with hypoxia or hypercapnia Status: Acute Assessment and Plan: - patient on mechanical ventilation With ASV peep of 5, 30% FiO2 - chest x-ray any ABGs reviewed - currently off all sedation since 2:00 p.m. on 10/17/2019, - Opens his eyes but not tracking ir following commands - patient volume overloaded, continue dialysis - tried pressure support ventilation today but kept had very high RSBI despite pressure support of 20 - will require ultrasound-guided thoracentesis at some point. PLAVIX being held for thoracentesis per interventional radiology - patient has been on ventilator for close to 2 weeks and is in no way close to extubation. ENT consulted for tracheostomy (4) Aspiration pneumonia: Code(s): J69.0 - Pneumonitis due to inhalation of food and vomit Status: Acute Assessment and Plan: - continue antibiotics as above (5) Encephalopathy: Code(s): G93.40 - Encephalopathy, unspecified Status: Acute Assessment and Plan: - gradually improving - encephalopathy likely multifactorial related to metabolic /uremic encephalopathy, infectious encephalopathy, medication related - neurology has been consulted and appreciate their evaluation and recommendations - EEG was done on 10/20/2019 and discussed with Neurology, EEG had significant slowing, likely related to severe encephalopathy. No epileptiform discharges were seen - patient did have a CT scan of the brain on 10/18/2019: was negative for any acute intracranial pathology (6) Cardiorespiratory arrest: Code(s): I46.9 - Cardiac arrest, cause unspecified Status: Acute Assessment and Plan: PEA arrest likely due aspiration,ROSC after 1 round of epinephrine - post arrest pt was following commands and so did not require hypothermia protocol - trops elevated to 0.40 likely due to cardiac arrest and renal failure (7) Colitis: Code(s): K52.9 - Noninfective gastroenteritis and colitis, unspecified Status: Acute Assessment and Plan: RESOLVED - patient presented with abdominal pain, nausea, vomiting and diarrhea, CT scan of the abdomen and pelvis on 10/13/2019 showed sigmoid colon wall thickening is con
[2019-10-26 07:30] LABS: Band Neutrophils Percent 5 % (0-6); Eosinophils Absolute Manual 0.76 K/mm3 (0.02-0.5); Eosinophils Percent Manual 3 % (0-4); Lymphocytes Absolute Manual 1.53 K/mm3 (1.1-4.5); Lymphocytes Percent Manual 6 % (18-44); Monocytes Absolute Manual 2.29 K/mm3 (0.1-0.90); Monocytes Percent Manual 9 % (3-9); Neutrophils Absolute Manual 20.91 K/mm3 (1.3-6.7); Neutrophils Percent Manual 77 % (46-73); Total Cells Counted 100
[2019-10-26 07:34] LABS: Anisocytosis 1+ (NORMAL); Hypochromasia 1+ (NORMAL); Platelet Estimate Adequate (Adequate); Polychromasia 1+ (NORMAL)
[2019-10-26] MEDS: POTASSIUM CHLORIDE 20 MEQ PACKET (FOR LIQUID) 40 MEQ PO (08:40)
[2019-10-26] MEDS: PRAVASTATIN SODIUM 20 MG TABLET 80 MG PO (08:40)
[2019-10-26] MEDS: SILVERGEL (ELTA) 45 ML 1 APPLIC TOPICAL (08:41)
[2019-10-26] MEDS: FLUTICASONE PROPIONATE 0.05% NA SPR 16 GM BTL (*BKC) 2 SPRAY NASAL (08:41)
[2019-10-26] MEDS: PANTOPRAZOLE SODIUM IV 40 MG VIAL IV PUSH ×2 (08:41→21:08)
[2019-10-26] MEDS: ACIDOPHILUS/BULGARICUS CHEWABLE TABLET 1 TABLET PO (08:41)
[2019-10-26] MEDS: FLUCONAZOLE 200 MG/NACL 100 ML 200 MG/100 ML BAG 100 MG IVPB (08:49)
[2019-10-26] MEDS: AZTREONAM 1 GM in DEXTROSE 5% IN WATER 50 ML IVPB (08:50)
--- NOTE | 2019-10-26 08:59 | PM.PNGS ---
Progress Note: A&P Assessment and Plan (1) Peritoneal dialysis catheter infection: Code(s): T85.71XA - Infection and inflammatory reaction due to peritoneal dialysis catheter, initial encounter Status: Acute Assessment and Plan: PD catheter removed on October 20. SILVA drains show serosanguineous fluid. Peritoneal fluid cultures show yeast, Linda albicans. pt on Fluconazole. (2) Severe sepsis: Code(s): A41.9 - Sepsis, unspecified organism; R65.20 - Severe sepsis without septic shock Status: Acute Assessment and Plan: Fungal peritonitis, aspiration pneumonitis, on antifungal and anti-microbial therapy. Remains on mechanical ventilator. (3) Peritonitis: Onset Date: ~10/2019 Code(s): K65.9 - Peritonitis, unspecified Status: Acute Assessment and Plan: Should improve with peritoneal dialysis catheter removed. Continue antifungal treatment. (4) ESRD (end stage renal disease) on dialysis: Code(s): N18.6 - End stage renal disease; Z99.2 - Dependence on renal dialysis Status: Acute Assessment and Plan: Patient to dialyze again today via right IJ tunneled central venous catheter. Additional Plan Will plan to follow output from SILVA drains. (Now about 10- 30 cc on each side Q 24 hours). Most likely will leave until there is almost no output. Patient currently on Fluconazoe for an antifungal. Subjective Subjective Date/Time Seen: 10/26/19 08:59 patient unable to answer questions. Nurse reports that patient now following a few simple commands. Does not squeeze once hand but can move his fingers and his toes to command. He does close his eyes to command. Dialysis nurse in the room when I examined him. Patient's ICU nurse reports that he is tolerating his tube feedings and having loose stools. They are holding the MiraLax at this time. Post Op day: 5 Patient reports: no new complaints Review of Systems Review of Systems: ROS unobtainable: Yes unobtainable due to endotracheal tube and unobtainable due to medical condition Exam HENMT: Head: normal to inspection, normocephalic and atraumatic Ears: hearing grossly normal bilaterally and external ears normal General nose exam: Normal external nose present and no epistaxis Mouth: Yes Normal oral and palatal mucosa present and Yes moist mucous membranes Eyes: General: appearance normal, both eyes and all related structures Sclera: sclerae normal EOM: EOMs intact bilaterally Neck: Neck: normal visual inspection, full ROM, no JVD and other ( right IJ tunneled dialysis catheter dry and intact.) Lymphatic: lymphadenopathy not noted Other: Incisions on right neck clean and dry. Triple lumen central line on the left without signs of purulent exudate. Resp: Effort & Inspection: able to speak in complete sentences and no respiratory distress Auscultation: rhonchi right upper and diminished lung sounds (at bases) bilateral Other: Patient intubated and ventilated. Upper anterior lung findings fairly clear to auscultation bilaterally today. GI: Inspection: normal to inspection, incision ( Serosanguineous fluid from each SILVA drain, dressings dry.), scar, no visible herniation and other ( Protuberant abdomen, possibly distended) Auscultation: absent bowel sounds and Hypoactive bowel sounds present Rectal Exam: deferred Other: Incisions on the abdomen healing well with bilateral lower abdominal SILVA drains. The right side has some drainage along it and will need a dressing change. patient's nurse reports that the exit site from the previous PD catheter is still able to be packed for about 2-3 cm medially. A small amount of iodoform gauze was packed into this. We will pack this with quarter-inch iodoform gauze and it will be underneath the dressing for his left lower quadrant SILVA drain. Still having some serous drainage around the SILVA drain in the left lower quadrant. Will reinforce the split 5
--- NOTE | 2019-10-26 10:03 | WPDINFPN2 ---
Progress Note: A&P Assessment and Plan (1) Leukocytosis: Onset Date: ~09/2019 Code(s): D72.829 - Elevated white blood cell count, unspecified Status: Acute Assessment and Plan: 1. Leukocytosis, due to fungal peritonitis from his catheter. WBC declining steadily though still high. 2. Colitis by CT 3. CRF on HD now 4. PCN intolerance REC off antibacterials. Fluconazole # 5 (antifungal #6). POD # 5 cath removal, intraop cultures = same C albicans. Subjective Date/time seen: 10/26/19 10:03 Interval history: on HD. No pressors, intubated and sedated. Exam Narrative: Exam Narrative: t max 37.9 Const: General: no acute distress Resp: Effort & Inspection: normal respiratory effort Auscultation: clear to auscultation bilaterally and diminished lung sounds Cardio: Rate: tachycardic Rhythm: regular rhythm Heart sounds: no murmurs GI: Inspection: distended GI Palp: Yes Soft to palpation, No Tenderness to palpation present (GI) and No Guarding due to palpation present (GI) Auscultation: abnormal bowel sounds Skin: General skin exam: no rashes or lesions noted Other: left plantar partial thickness ulcer 1 cm, no infection signs are present Objective Data Vital Signs Vital Signs: Vital Signs - 24 hr 10/25/19 12:00 10/25/19 13:45 10/25/19 14:00 Temperature 37.9 C H Pulse Rate 106 H 105 H 104 H Respiratory Rate 31 H 24 H Blood Pressure 108/58 L 98/48 L Pulse Oximetry 100 100 99 10/25/19 16:00 10/25/19 16:33 10/25/19 18:00 Temperature 37.8 C H Pulse Rate 112 H 104 H 108 H Respiratory Rate 32 H 27 H Blood Pressure 135/58 L 114/61 Pulse Oximetry 100 100 100 10/25/19 20:00 10/25/19 20:17 10/25/19 22:00 Temperature Pulse Rate 103 H 100 100 Respiratory Rate 29 H 27 H Blood Pressure 97/51 L 122/50 L Pulse Oximetry 100 99 100 10/25/19 22:47 10/26/19 00:00 10/26/19 01:51 Temperature 36.9 C Pulse Rate 103 H 109 H 105 H Respiratory Rate 23 H Blood Pressure 105/58 L Pulse Oximetry 100 100 100 10/26/19 02:00 10/26/19 04:00 10/26/19 04:10 Temperature Pulse Rate 107 H 99 106 H Respiratory Rate 17 20 Blood Pressure 102/55 L 105/50 L Pulse Oximetry 100 100 100 10/26/19 06:00 10/26/19 08:00 10/26/19 08:35 Temperature 36.5 C Pulse Rate 110 H 115 H 107 H Respiratory Rate 24 H 27 H Blood Pressure 128/60 114/83 115/61 Pulse Oximetry 100 100 10/26/19 08:45 10/26/19 09:00 10/26/19 09:01 Temperature Pulse Rate 110 H 110 H 120 H Respiratory Rate Blood Pressure 100/69 73/41 L 80/46 L Pulse Oximetry 10/26/19 09:05 10/26/19 09:15 10/26/19 09:30 Temperature Pulse Rate 110 H 111 H 113 H Respiratory Rate Blood Pressure 81/55 L 105/58 L 127/62 Pulse Oximetry 10/26/19 09:45 10/26/19 10:00 Temperature Pulse Rate 114 H 113 H Respiratory Rate Blood Pressure 126/64 110/70 Pulse Oximetry Intake/Output Intake/Output: Intake & Output 10/23/19 10/24/19 10/25/19 10/26/19 23:59 23:59 23:59 23:59 Intake Total 2056.7 2069 2805 1347 Output Total 155 2267 140 95 Balance 1901.7 -198 2665 1252 Meds/Results Medications: Active Medications Generic Name Dose Route Start Last Admin Trade Name Freq PRN Reason Stop Dose Admin Bisacodyl 10 mg 10/14/19 17:03 10/16/19 17:51 Dulcolax Suppository RECTAL 10 mg QAM PRN Administration Constipation Dextrose 12.5 gm 10/16/19 20:09 10/23/19 08:56 Dextrose 50% Syringe IV PUSH 12.5 gm PRN PRN Administration Hypoglycemia Protocol Epoetin Avni-epbx 10,000 units 10/26/19 18:38 Retacrit IV PUSH 10/26/19 18:39 ONCE ONE Fentanyl Citrate 25 mcg 10/26/19 07:35 Sublimaze IV PUSH Q1H PRN Pain Rated 7-10 Fluticasone Propionate 2 spray 10/16/19 09:00 10/26/19 08:41 Flonase 0.05% Nasal [place] NASAL 2 spray DAILY JOHNATHAN Administration Glucagon 1 mg 10/16/19 20:09 Glucagon For Inj IM PRN PRN Hypoglycemi
[2019-10-26 10:15] LABS: Lactate Dehydrogenase 550 U/L (313-618)
[2019-10-26] MEDS: EPOETIN ALFA-EPBX 10,000 UNITS/ML VIAL 10000 UNITS IV PUSH (11:07)
--- NOTE | 2019-10-26 11:11 | PCDIET ---
ICU Rounding Note: Patient tolerating Nepro at 35mL/hr goal rate. Last recorded weight is 77.8kg, slightly down from last review. +I/O. Bowel Motility: Loose stools reported. Miralax held. Labs Reviewed: Glu (264), BUN (33), Cr (2.4), Na (127), K (3.3), Ade Ca (8.38), Alb (1.9) Meds Noted: Albumin, Diflucan, Flagyl, Aztreonam, Novolog, Protonix, KCl, Retacrit, Lactinex, Miralax, Fentanyl, Synthroid, Vancomycin Additional Notes: RN reports deep tissue wound on buttocks, foot wound, skin tears on arms. Consults for PEG and tracheostomy placed. Plan for thoracentesis at some point, as well. Recommend continuing present tube feeding at this time. Following daily in ICU rounds. Assessing/reassessing every Saturday/Saturday.
[2019-10-26] MEDS: HEPARIN SODIUM 1,000 UNITS/ML VIAL 1000 UNITS IV PUSH (12:10)
--- NOTE | 2019-10-26 12:16 | P.PNNP_ITS ---
Progress Note: A&P Assessment and Plan (1) ESRD (end stage renal disease) on dialysis: Code(s): N18.6 - End stage renal disease; Z99.2 - Dependence on renal dialysis Status: Acute Assessment and Plan: * converted to hemodialysis given # * HD today with focus on pushing fluid removal as tolerated * follow electrolytes, volume status, and clearance * next HD sessop (2) Peritonitis (acute) generalized: Code(s): K65.0 - Generalized (acute) peritonitis Status: Acute Assessment and Plan: * cultures growing yeast * s/p PD catheter removal and washout * drains in place * antibiotics/antifungals as outlined by Infectious Disease * continue supportive therapy (3) Hyponatremia: Onset Date: Unknown Code(s): E87.1 - Hypo-osmolality and hyponatremia Status: Acute Assessment and Plan: * partly due to ESRD * slow improvent with hemodialysis * follow trend (4) Cardiorespiratory arrest: Code(s): I46.9 - Cardiac arrest, cause unspecified Status: Acute Assessment and Plan: * presumably precipitated by aspiration * remains on mechanical ventilation (5) Aspiration pneumonia: Code(s): J69.0 - Pneumonitis due to inhalation of food and vomit Status: Acute Assessment and Plan: * on antibiotics * intubated and on mechanical ventilation * need for tracheostomy -- possibly later this week (6) Encephalopathy: Code(s): G93.40 - Encephalopathy, unspecified Status: Acute Assessment and Plan: * off sedation * due to #4 (?) * EEG results noted * continue supportive care Will continue to follow. Subjective Date/time seen: 10/26/19 12:16 Tolerating dialysis treatment at the time of my visit (seen on HD at ~ noon); opens eyes and but is not following commands; no apparent distress noted; no events or issues overnight or earlier this AM. Exam Narrative: Exam Narrative: General: WD/WN male - intubated and open eyes at tiji Heart: normal S1 and S2; no rub Lungs: crackles at bases and diminished breath sonds Abdomen: soft, nontender, nondistended, positive bowel sounds Extremities: no cyanosis or clubbing; anasarca (edema in upper and lower extremities as well as abdominal wall) Skin: no rash Objective Data Vital Signs Vital Signs: Vital Signs Temp Pulse Resp BP Pulse Ox 10/26/19 12:00 108 H 91/58 L 10/26/19 11:45 106 H 94/60 L 10/26/19 11:30 105 H 93/49 L 10/26/19 11:26 106 H 102/57 L 10/26/19 11:20 113 H 81/57 L 10/26/19 11:15 111 H 88/69 L 10/26/19 11:05 107 H 88/65 L 10/26/19 11:00 117 H 103/69 10/26/19 10:45 114 H 122/60 10/26/19 10:30 116 H 95/59 L 10/26/19 10:15 124 H 107/70 10/26/19 10:00 113 H 110/70 10/26/19 09:45 114 H 126/64 10/26/19 09:30 113 H 127/62 10/26/19 09:15 111 H 105/58 L 10/26/19 09:05 110 H 81/55 L 10/26/19 09:01 120 H 80/46 L 10/26/19 09:00 110 H 73/41 L 10/26/19 08:45 110 H 100/69 10/26/19 08:35 107 H 115/61 10/26/19 08:00 36.5 C 115 H 27 H 114/83 100 10/26/19 06:00 110 H 24 H 128/60 100 10/26/19 04:10 106 H 100 10/26/19 04:00 99 20 105/50 L 100 10/26/19 02:00 107 H 17 102/
--- NOTE | 2019-10-26 12:16 | PM.PNNEP ---
Progress Note: A&P Assessment and Plan (1) ESRD (end stage renal disease) on dialysis: Code(s): N18.6 - End stage renal disease; Z99.2 - Dependence on renal dialysis Status: Acute Assessment and Plan: converted to hemodialysis given # HD today with focus on pushing fluid removal as tolerated follow electrolytes, volume status, and clearance next HD sessop (2) Peritonitis (acute) generalized: Code(s): K65.0 - Generalized (acute) peritonitis Status: Acute Assessment and Plan: cultures growing yeast s/p PD catheter removal and washout drains in place antibiotics/antifungals as outlined by Infectious Disease continue supportive therapy (3) Hyponatremia: Onset Date: Unknown Code(s): E87.1 - Hypo-osmolality and hyponatremia Status: Acute Assessment and Plan: partly due to ESRD slow improvent with hemodialysis follow trend (4) Cardiorespiratory arrest: Code(s): I46.9 - Cardiac arrest, cause unspecified Status: Acute Assessment and Plan: presumably precipitated by aspiration remains on mechanical ventilation (5) Aspiration pneumonia: Code(s): J69.0 - Pneumonitis due to inhalation of food and vomit Status: Acute Assessment and Plan: on antibiotics intubated and on mechanical ventilation need for tracheostomy -- possibly later this week (6) Encephalopathy: Code(s): G93.40 - Encephalopathy, unspecified Status: Acute Assessment and Plan: off sedation due to #4 (?) EEG results noted continue supportive care Will continue to follow. Subjective Date/time seen: 10/26/19 12:16 Tolerating dialysis treatment at the time of my visit (seen on HD at ~ noon); opens eyes and but is not following commands; no apparent distress noted; no events or issues overnight or earlier this AM. Exam Narrative: Exam Narrative: General: WD/WN male - intubated and open eyes at tiji Heart: normal S1 and S2; no rub Lungs: crackles at bases and diminished breath sonds Abdomen: soft, nontender, nondistended, positive bowel sounds Extremities: no cyanosis or clubbing; anasarca (edema in upper and lower extremities as well as abdominal wall) Skin: no rash Objective Data Vital Signs Vital Signs: Vital Signs Temp Pulse Resp BP Pulse Ox 10/26/19 12:00 108 H 91/58 L 10/26/19 11:45 106 H 94/60 L 10/26/19 11:30 105 H 93/49 L 10/26/19 11:26 106 H 102/57 L 10/26/19 11:20 113 H 81/57 L 10/26/19 11:15 111 H 88/69 L 10/26/19 11:05 107 H 88/65 L 10/26/19 11:00 117 H 103/69 10/26/19 10:45 114 H 122/60 10/26/19 10:30 116 H 95/59 L 10/26/19 10:15 124 H 107/70 10/26/19 10:00 113 H 110/70 10/26/19 09:45 114 H 126/64 10/26/19 09:30 113 H 127/62 10/26/19 09:15 111 H 105/58 L 10/26/19 09:05 110 H 81/55 L 10/26/19 09:01 120 H 80/46 L 10/26/19 09:00 110 H 73/41 L 10/26/19 08:45 110 H 100/69 10/26/19 08:35 107 H 115/61 10/26/19 08:00 36.5 C 115 H 27 H 114/83 100 10/26/19 06:00 110 H 24 H 128/60 100 10/26/19 04:10 106 H 100 10/26/19 04:00 99 20 105/50 L 100 10/26/19 02:00 107 H 17 102/55 L 100 10/26/19 01:51 105 H 100 10/26/19 00:00 36.9 C 109 H 23 H 105/58 L 100 10/25/19 22:47 103 H 100 10/25/19 22:00 100 27 H 122/50 L 100 10/25/19 20:17 100 99 10/25/19 20:00 103 H 29 H 97/51 L 100 10/25/19 18:00 108 H 27 H 114/61 100 10/25/19 16:33 104 H 100 10/25/19 16:00 37.8 C H 112 H 32 H 135/58 L 100 10/25/19 14:00 104 H 24 H 98/48 L 99 10/25/19 13:45 105 H 100 Intake/Output Intake/Output: Intake & Output 10/23/19 10/24/19 10/25/19 10/26/19 23:59 23:59 23:59 23:59 Intake Total 2056.7 2069 2805 1597 Output Total 155 2267 140 95 Balance 1901.7 -198 2665 1502 Meds/Results Medications: Activ
[2019-10-26 13:15] LABS: Glucose Point of Care 210 (65-105)
[2019-10-26 13:15] LABS: Glucose Point of Care 179 (65-105)
--- NOTE | 2019-10-26 15:58 | WPDCN ---
Assessment and Plan Assessment and plan (1) Respiratory insufficiency: Code(s): R06.89 - Other abnormalities of breathing Status: Acute Assessment and Plan: Patient is a candidate for tracheostomy placement given his current respiratory insufficiency. Please hold heparin am of OR. Plan for tracheostomy in OR Saturday10/30/19. Please call with any questions/concerns [phone], ok for family to call as well. Thank you. HPI Data of Consult Date/Time: 10/26/19 15:58 Requesting Physician: Kvng Arizmendi MD Primary Care Provider: Eric Xiao MD Consult Narrative Narrative: Ángel Fung is a 78 year old male with current respiratory insufficiency. The patient is currently in the ICU as a result of sepsis secondary to a peritoneal infection. Review of Systems Review of Systems: ROS unobtainable: Yes unobtainable due to endotracheal tube PMFSH Past Medical History Medical History (Updated 10/26/19 @ 16:05 by Vamsi Alcala MD) Anemia of chronic disease Arthritis Back pain Bladder tumor Resected 09/15/2019 CKD stage 5 due to type 2 diabetes mellitus (Unknown) Coronary artery disease (Unknown) With history of stent in 2008 and 2014 Diabetic peripheral neuropathy End-stage renal disease on peritoneal dialysis Managed by Dr. Lauren Glaucoma Hearing loss With bilateral hearing aids Hyperlipidemia Hypertension (Unknown) Hypothyroidism (Unknown) Hypothyroidism Insulin dependent type 2 diabetes mellitus Myocardial infarct Osteomyelitis (~05/2015) Peripheral arterial disease History of multiple bilateral lower extremity stents. Peritonitis (acute) generalized Type 2 diabetes mellitus (Unknown) Urethral stricture Status post dilatation 09/15/2019 Surgical History Surgical History Amputation of fifth toe of right foot (~05/2015) History of colonoscopy with polypectomy Reportedly had a Colonoscopy in 2019 due to his chronic diarrhea and had findings of a cancerous polyp that was completely removed during the colonoscopy. This was performed in [place]. History of heart artery stent (~10/2014) 2008 and 2014 History of surgical removal of skin lesion Top of head and face. Basal cell carcinoma History of transurethral destruction of bladder lesion 09/15/2019 History of vascular surgery Bilateral lower extremity stents. Total of 4 stents in each leg Status post cataract extraction Status post cystourethroscopy with dilation of urethral stricture 09/15/2019 Family History Family History Mother , Age 87 [place] Heart disease Diabetes mellitus Cataract Father , Age 69 from Cancer Heart disease Lung cancer Sibling Diabetes mellitus Social History Social History Social History: The patient is and lives with his in [place]. They have 2 children. He served in [employer] for 3 years in [place] and is retired from factory work. He smoked up to 2 packs of cigarettes per day for about 17 years and quit in the . No alcohol or illicit substance use. He designates his , Dena, as his surrogate decision maker. Smoking packs per day: 2 Smoking cigarettes per day: 40.0 Years smoked: 17 Smoking pack-years: 34.00 Smoking status: Former smoker Tobacco type: cigarettes Alcohol intake: never Substance use: never Gender identity (if verbalized by the patient): Male Spiritual care concerns: No Meds Home Medications and Allergies Home Medications Medication Instructions Recorded Confirmed Type B complex-vitamin C-folic acid 0.8 1 tablet PO DAILY 03/24/19 10/13/19 History mg tablet carvedilol 25 mg tablet 25 mg PO BID 03/24/19 10/13/19 History clopidogrel 75 mg tablet 75 mg PO DAILY 03/24/19 10/13/19 History fluticasone propionat
--- NOTE | 2019-10-26 16:39 | WPDGICN ---
Assessment and Plan Assessment and plan (1) Cardiorespiratory arrest: Code(s): I46.9 - Cardiac arrest, cause unspecified Status: Acute Assessment and Plan: Because of patient's ventilator dependency plan is to put proceed with PEG tube placement will anticipate placing PEG tube on Saturday. Patient will need to be NPO prior to procedure. Anticoagulation including subcu heparin will be held day of procedure. Will follow with you in the antrum. (2) Atrial fibrillation: Onset Date: ~09/2019 Code(s): I48.91 - Unspecified atrial fibrillation Status: Acute (3) Type 2 diabetes mellitus: Onset Date: Unknown Code(s): E11.9 - Type 2 diabetes mellitus without complications Status: Chronic (4) Peritoneal dialysis catheter infection: Code(s): T85.71XA - Infection and inflammatory reaction due to peritoneal dialysis catheter, initial encounter Status: Acute (5) Acute respiratory failure: Code(s): J96.00 - Acute respiratory failure, unspecified whether with hypoxia or hypercapnia Status: Acute (6) Peritonitis: Onset Date: ~10/2019 Code(s): K65.9 - Peritonitis, unspecified Status: Acute (7) End stage renal disease: Code(s): N18.6 - End stage renal disease Status: Chronic (8) Anemia of chronic disease: Code(s): D63.8 - Anemia in other chronic diseases classified elsewhere Status: Chronic GI Consult Note Consult date/time: 10/26/19 16:39 HPI: Ángel Fung is a 78 year old male Seen in evaluation at the request of the contour sander service. Patient presented to the hospital 10/13/2019 and suffered a cardiopulmonary arrest was subsequently intubated currently requires NG tube for nutrition I have been asked to see him for PEG tube placement. Patient is unable to add a additional useful history. He has been treated for peritonitis infection apparently because of a peritoneal dialysis catheter. Past history is significant for end-stage renal disease on dialysis. As stated he suffered a cardiopulmonary arrest. Currently has been treated for encephalopathy. Review of Systems Review of Systems: All systems reviewed & are unremarkable except as noted in HPI and below PMFSH Past Medical History Medical History Anemia of chronic disease Arthritis Back pain Bladder tumor Resected 09/15/2019 CKD stage 5 due to type 2 diabetes mellitus (Unknown) Coronary artery disease (Unknown) With history of stent in 2008 and 2014 Diabetic peripheral neuropathy End-stage renal disease on peritoneal dialysis Managed by Dr. Lauren Glaucoma Hearing loss With bilateral hearing aids Hyperlipidemia Hypertension (Unknown) Hypothyroidism (Unknown) Hypothyroidism Insulin dependent type 2 diabetes mellitus Myocardial infarct Osteomyelitis (~05/2015) Peripheral arterial disease History of multiple bilateral lower extremity stents. Peritonitis (acute) generalized Type 2 diabetes mellitus (Unknown) Urethral stricture Status post dilatation 09/15/2019 Surgical History Surgical History Amputation of fifth toe of right foot (~05/2015) History of colonoscopy with polypectomy Reportedly had a Colonoscopy in 2019 due to his chronic diarrhea and had findings of a cancerous polyp that was completely removed during the colonoscopy. This was performed in [place]. History of heart artery stent (~10/2014) 2008 and 2014 History of surgical removal of skin lesion Top of head and face. Basal cell carcinoma History of transurethral destruction of bladder lesion 09/15/2019 History of vascular surgery Bilateral lower extremity stents. Total of 4 stents in each leg Status post cataract extraction Status post cystourethroscopy with dilation of urethral stricture 09/15/2019 Family History Family History (Reviewed 10/26/19 @
--- NOTE | 2019-10-26 17:29 | PM.IMPN ---
Progress Note: A&P Assessment and Plan (1) Septic shock: Code(s): A41.9 - Sepsis, unspecified organism; R65.21 - Severe sepsis with septic shock Status: Deleted Assessment and Plan: 10/26/19 17:29 patient is 78-year-old male with history of end-stage renal disease on peritoneal dialysis presented emergency department had a cardiac arrest ROSC after 1 round of epinephrine per protocol ROSC, with shortness of breath and hypoxic patient was intubated currently on vent, patient may have aspirated pneumonia, patient in septic shock and on pressor, patient being treated with Levaquin, vancomycin and Flagyl, discussed with poultry hatchery supervisor prognosis is poor we appreciate poultry hatchery supervisor, patient is seen by Dr. Aguilar nephrology for peritoneal dialysis, Air Antisubmarine Officer had spoken with patient's , she would like to keep full code and continue to treat the patient. septic shock resolved and patient is off Levophed, septic shock most likely secondary to aspiration pneumonia possibly peritonitis and treated with Flagyl cefepime and ceftazidime intraperitoneal by nephrology, patient is his leukocytosis etiology uncertain seen by Dr. Rowe and poultry hatchery supervisor, stopped all antibiotic and has started the patient vancomycin and aztreonam, meanwhile patient was seen by surgery and peritoneal dialysis catheter was removed and now patient is on hemodialysis,workup is in progress patient clinically stable on vent, patient is seen by intensive, Dr. Rowe, ID Dr. Aguilar nephrology and General surgery team, patient intubated had a dialysis on 10/23 and will have today, , unable to wean the patient off the ventilator, patient will have a PEG and trach tomorrow and may need to be transferred to LTAC patient is present in the room. (2) Cardiorespiratory arrest: Code(s): I46.9 - Cardiac arrest, cause unspecified Status: Acute Assessment and Plan: after 1 round of epinephrine per protocol ROSC, (3) Aspiration pneumonia: Code(s): J69.0 - Pneumonitis due to inhalation of food and vomit Status: Acute Assessment and Plan: during suction bile was seen most likely patient had aspirated resulting in pneumonia (4) Atrial fibrillation: Onset Date: ~09/2019 Code(s): I48.91 - Unspecified atrial fibrillation Status: Acute (5) Hyponatremia: Onset Date: Unknown Code(s): E87.1 - Hypo-osmolality and hyponatremia Status: Acute Assessment and Plan: rate is controlled (6) Abnormal computed tomography of abdomen and pelvis: Code(s): R93.5 - Abnormal findings on diagnostic imaging of other abdominal regions, including retroperitoneum Status: Acute Assessment and Plan: suspect peritonitis (7) Peritonitis (acute) generalized: Code(s): K65.0 - Generalized (acute) peritonitis Status: Acute Assessment and Plan: patient on peritoneal dialysis,patient is being treated with antibiotics Subjective Date/time seen: 10/26/19 17:29 patient is 78-year-old male with history of end-stage renal disease on peritoneal dialysis presented emergency department had a cardiac arrest ROSC after 1 round of epinephrine per protocol ROSC, with shortness of breath and hypoxic patient was intubated currently on vent, patient may have aspirated pneumonia, patient in septic shock and on pressor, patient being treated with Levaquin, vancomycin and Flagyl, discussed with poultry hatchery supervisor prognosis is poor we appreciate poultry hatchery supervisor, patient is seen by Dr. Aguilar nephrology for peritoneal dialysis, Air Antisubmarine Officer had spoken with patient's , she would like to keep full code and continue to treat the patient. septic shock resolved and patient is off Levophed, septic shock most likely secondary to aspiration pneumonia possibly peritonitis and treated with Flagyl cefepime and ceftazidime intraperitoneal by nephrology, patient is his leukocytosis etiology uncertain seen by Dr. Rowe
[2019-10-26 21:28] LABS: Glucose Point of Care 182 (65-105)
[2019-10-27] VITALS (22 sets, daily range): BP systolic 81–130; BP diastolic 47–78; PULSE 73–121; RESP 18–30; TEMP 36.6–36.9; O2SAT 30–100
[2019-10-27 00:12] LABS: Glucose Point of Care 238 (65-105)
[2019-10-27] MEDS: metroNIDAZOLE 500 MG/ISO 100ML 500 MG/100 ML BAG 100 MG IVPB ×5 (00:13→23:54)
[2019-10-27] MEDS: INSULIN ASPART (*BKC) 100 UNITS/ML SUB-Q ×3 (00:15→12:24)
[2019-10-27 04:46] LABS: Hematocrit 27.6 % (42.0-52.0); Hemoglobin 8.7 g/dL (14.0-18.0); Mean Corpuscular HGB Conc 31.5 g/dl (32-36); Mean Corpuscular Hemoglobin 32.1 pg (26-34); Mean Corpuscular Volume 101.8 fl (80-100); Mean Platelet Volume 12.2 fl (7.4-10.4); Platelet Count Result 193 k/mm3 (150-375); Red Blood Count 2.71 M/mm3 (4.6-6.20); Red Cell Distribution Width 21.2 % (11.5-14.5); White Blood Count 19.5 K/mm3 (4.5-10.0)
[2019-10-27 04:57] LABS: Phosphorus 2.9 mg/dL (2.5-4.5)
[2019-10-27 04:58] LABS: INR 1.9; Prothrombin Time 21.4 Seconds (11.1-14.7)
[2019-10-27 06:04] LABS: Glucose Point of Care 204 (65-105)
[2019-10-27] MEDS: HEPARIN SODIUM 5,000 UNITS/ML VIAL 5000 UNITS SUB-Q ×2 (06:05→21:06)
[2019-10-27] MEDS: CENTRAL LINE FLUSH 10 ML IV PUSH ×3 (06:20→20:35)
[2019-10-27] MEDS: LEVOTHYROXINE SODIUM 75 MCG TABLET PO (06:21)
[2019-10-27 07:58] LABS: Anion Gap 6 mmol/L (8-16); Blood Urea Nitrogen 32 mg/dL (9-20); Calcium 6.8 mg/dL (8.4-10.2); Carbon Dioxide 25 mmol/L (22-30); Chloride 100 mmol/L (98-107); Estimated CRCL calculation 21 ml/min; Estimated Glomerular Filt Rate 29; Glucose 189 mg/dL (75-110); Magnesium 1.7 mg/dL (1.6-2.3); Potassium 3.4 mmol/L (3.4-5.0); Sodium 131 mmol/L (137-145)
--- NOTE | 2019-10-27 08:00 | WPDINTPN ---
Progress Note: A&P Assessment and Plan (1) Severe sepsis: Code(s): A41.9 - Sepsis, unspecified organism; R65.20 - Severe sepsis without septic shock Status: Acute Assessment and Plan: and septic shock secondary to fungal peritonitis and PNA - OFF LEVOPHED since 2:00 a.m. on 10/16/2019 - peritoneal cultures growing Yeast - continue IV vancomycin, aztreonam, metronidazole and fluconazole per infectious disease - appreciate infectious disease following the patient - leukocytosis gradually improving - CT scan of the abdomen and pelvis on 10/16 showed interval progression of patchy bilateral airspace disease, compatible pneumonia. Bilateral pleural effusions right greater than left moderate ascites which appears loculated the left upper abdomen, cannot exclude peritonitis, abdominal wall thickening suspicious for cystitis. peritoneal dialysis catheter present in the pelvis - 10/19/2019 peritoneal fluid Gram stain , no organism seen - 10/19/2019 peritoneal fluid culture, growing Linda albicans - 10/18/2019 blood cultures negative x2 - 10/21/2019 repeat peritoneal cultures and peritoneal catheter cultures growing Linda albicans (2) Peritonitis: Onset Date: ~10/2019 Code(s): K65.9 - Peritonitis, unspecified Status: Acute Assessment and Plan: Linda peritnoitis - status post removal of peritoneal dialysis catheter on 10/21/2019, Catheter and peritoneal fluid sent for culture - SILVA drains x2 draining serosanguineous fluid, surgery following the patient - appreciate infectious disease following the patient - continue IV fluconazole per infectious disease (3) Acute respiratory failure: Code(s): J96.00 - Acute respiratory failure, unspecified whether with hypoxia or hypercapnia Status: Acute Assessment and Plan: - patient on mechanical ventilation With ASV peep of 5, 30% FiO2 - chest x-ray any ABGs reviewed - currently off all sedation since 2:00 p.m. on 10/17/2019, - Opens his eyes but not tracking ir following commands - patient volume overloaded, continue dialysis - tried pressure support ventilation today but kept had very high RSBI despite pressure support of 20 - ultrasound-guided thoracentesis schedule for today. - patient has been on ventilator for close to 2 weeks and is in no way close to extubation. ENT consulted for tracheostomy. planned for this Saturday (4) Aspiration pneumonia: Code(s): J69.0 - Pneumonitis due to inhalation of food and vomit Status: Acute Assessment and Plan: - continue antibiotics as above (5) Encephalopathy: Code(s): G93.40 - Encephalopathy, unspecified Status: Acute Assessment and Plan: - gradually improving - encephalopathy likely multifactorial related to metabolic /uremic encephalopathy, infectious encephalopathy, medication related - neurology has been consulted and appreciate their evaluation and recommendations - EEG was done on 10/20/2019 and discussed with Neurology, EEG had significant slowing, likely related to severe encephalopathy. No epileptiform discharges were seen - patient did have a CT scan of the brain on 10/18/2019: was negative for any acute intracranial pathology (6) Cardiorespiratory arrest: Code(s): I46.9 - Cardiac arrest, cause unspecified Status: Acute Assessment and Plan: PEA arrest likely due aspiration,ROSC after 1 round of epinephrine - post arrest pt was following commands and so did not require hypothermia protocol - trops elevated to 0.40 likely due to cardiac arrest and renal failure (7) Colitis: Code(s): K52.9 - Noninfective gastroenteritis and colitis, unspecified Status: Acute Assessment and Plan: RESOLVED - patient presented with abdominal pain, nausea, vomiting and diarrhea, CT scan of the abdomen and pelvis on 10/13/2019 showed sigmoid colon wall thickening is consistent with colitis. Rep
[2019-10-27] MEDS: POTASSIUM CHLORIDE 20 MEQ PACKET (FOR LIQUID) PO (09:09)
[2019-10-27] MEDS: PHYTONADIONE 5 MG TABLET 10 MG PO (09:09)
[2019-10-27] MEDS: FLUTICASONE PROPIONATE 0.05% NA SPR 16 GM BTL (*BKC) 2 SPRAY NASAL (09:10)
[2019-10-27] MEDS: PANTOPRAZOLE SODIUM IV 40 MG VIAL IV PUSH ×2 (09:10→20:34)
[2019-10-27] MEDS: ACIDOPHILUS/BULGARICUS CHEWABLE TABLET 1 TABLET PO (09:10)
[2019-10-27] MEDS: SILVERGEL (ELTA) 45 ML 1 APPLIC TOPICAL (09:10)
[2019-10-27] MEDS: PRAVASTATIN SODIUM 20 MG TABLET 80 MG PO (09:10)
[2019-10-27] MEDS: FLUCONAZOLE 200 MG/NACL 100 ML 200 MG/100 ML BAG 100 MG IVPB (09:14)
--- NOTE | 2019-10-27 09:33 | PM.PNNEP ---
Progress Note: A&P Assessment and Plan (1) ESRD (end stage renal disease) on dialysis: Code(s): N18.6 - End stage renal disease; Z99.2 - Dependence on renal dialysis Status: Acute Assessment and Plan: converted to hemodialysis given #2 HD yesteray follow electrolytes, volume status, and clearance next HD session tomorrow (but may need to adjust given multiple procedures this week) (2) Peritonitis (acute) generalized: Code(s): K65.0 - Generalized (acute) peritonitis Status: Acute Assessment and Plan: cultures growing yeast s/p PD catheter removal and washout drains in place antibiotics/antifungals as outlined by Infectious Disease continue supportive therapy (3) Hyponatremia: Onset Date: Unknown Code(s): E87.1 - Hypo-osmolality and hyponatremia Status: Acute Assessment and Plan: partly due to ESRD slow improvent with hemodialysis follow trend (4) Cardiorespiratory arrest: Code(s): I46.9 - Cardiac arrest, cause unspecified Status: Acute Assessment and Plan: presumably precipitated by aspiration remains on mechanical ventilation (5) Aspiration pneumonia: Code(s): J69.0 - Pneumonitis due to inhalation of food and vomit Status: Acute Assessment and Plan: on antibiotics intubated and on mechanical ventilation need for tracheostomy -- possibly later this week (6) Encephalopathy: Code(s): G93.40 - Encephalopathy, unspecified Status: Acute Assessment and Plan: off sedation due to #4 (?) EEG results noted continue supportive care Will continue to follow. Subjective Date/time seen: 10/27/19 09:33 Tolerated dialysis yesterday without any significant issues; seems a bit more interactive this AM; possible thoracentesis today and likely PEG tube placement tomorrow; no acute distress noted; remains hemodynamically stable . Exam Narrative: Exam Narrative: General: WD/WN male - intubated Heart: normal S1 and S2; no rub Lungs: crackles at bases and diminished breath sonds Abdomen: soft, nontender, nondistended, positive bowel sounds Extremities: no cyanosis or clubbing; anasarca (edema in upper and lower extremities as well as abdominal wall) Skin: no nodules Objective Data Vital Signs Vital Signs: Vital Signs Temp Pulse Resp BP Pulse Ox 10/27/19 08:00 36.8 C 114 H 22 H 130/63 100 10/27/19 07:54 106 H 100 08/11/20 06:00 114 H 24 H 116/78 100 10/27/19 05:30 116 H 100 10/27/19 04:00 36.6 C 113 H 24 H 112/62 100 10/27/19 02:10 114 H 100 10/27/19 02:00 117 H 26 H 81/53 L 100 10/27/19 00:00 36.9 C 121 H 22 H 118/53 L 30 L 10/26/19 23:03 111 H 100 10/26/19 22:00 116 H 20 109/76 100 10/26/19 20:10 115 H 100 10/26/19 20:00 36.7 C 114 H 24 H 94/52 L 100 10/26/19 18:00 122 H 30 H 100/66 100 10/26/19 17:51 119 H 100 10/26/19 16:00 36.4 C 114 H 24 H 108/65 100 10/26/19 14:08 106 H 100 10/26/19 14:00 111 H 22 H 117/65 99 10/26/19 12:15 36.1 C L 104 H 27 H 130/61 100 10/26/19 12:05 106 H 96/40 L 10/26/19 12:00 36.4 C L 105 H 22 H 91/58 L 100 10/26/19 11:45 106 H 94/60 L 10/26/19 11:30 105 H 93/49 L 10/26/19 11:26 106 H 102/57 L 10/26/19 11:20 113 H 81/57 L 10/26/19 11:15 111 H 88/69 L 10/26/19 11:05 107 H 88/65 L 10/26/19 11:00 117 H 103/69 10/26/19 10:45 114 H 122/60 10/26/19 10:40 117 H 100 10/26/19 10:30 116 H 95/59 L 10/26/19 10:15 124 H 107/70 10/26/19 10:00 116 H 19 110/70 100 10/26/19 09:45 114 H 126/64 Intake/Output Intake/Output: Intake & Output 08/08/20 08/09/20 08/10/20 08/11/20 23:59 23:59 23:59 23:59 Intake Total 5137 8799 2436 100 Output Total 8474 140 2150 35 Balance -198 6021 939 65 Meds/Results Medications: Active Medications Generic Name D
[2019-10-27] MEDS: CALCIUM GLUC 2,000 MG/NS 100ML 2,000 MG/100 ML BAG 100 MG IVPB (09:47)
--- NOTE | 2019-10-27 10:53 | PCDIET ---
Nutrition Follow-Up Complete: Nutrition Diagnosis: Inadequate oral intake related to oral intubation as evidenced by NPO status. Nutrition Goal: Patient to meet estimated nutritional needs. Goal met. Patient tolerating Nepro at 35mL/hr without reported issues. Receiving 30mL water flush every 4 hours. Plan for dialysis and thoracentesis today with PEG and trach placement later this week. Last recorded weight is 75.3 kg which is down from last review. Patient had 2L UF on 10/26/19. Bowel Motility: Liquid BM documented this date. Labs Reviewed: Hgb (8.7), Hct (27.6), Glu (204), BUN (32), Cr (2.2), Na (131), Alb (1.9), Ade Ca (8.48) Meds Noted: Albumin, Dulcolax, Fentanyl, Diflucan, Novolog, Lactinex, Synthroid, Flagyl, Protonix, Miralax, Calcium Gluconate, Phytonadione, KCl Additional Notes: Bilateral arms, buttocks and left pascual with skin tears; left foot and coccyx with ulcer; abdomen with SILVA drain x 2. Follow up every 3 days. Follow daily in ICU rounds.
--- NOTE | 2019-10-27 12:16 | WPDGIPROGNO ---
Progress Note: A&P Additional Plan [facility] remains [facility].Nutrition via NG tube is being tolerated adequately at present. Physical exam reveals abdomen be benign. Abdomen soft nontender no significant scars noted. Impression 1. Nutritional support will be needed via PEG tube. Patient appears to be ventilator dependent. Plan is to proceed with PEG tube placement tomorrow. I understand tracheostomy anticipated later in the week. Will hold Plavix until this is accomplished. Subjective Date/time seen: 10/27/19 12:16 Objective Data Vital Signs Vital Signs: Vital Signs - 24 hr 10/26/19 14:00 10/26/19 14:08 10/26/19 16:00 Temperature 97.6 F Pulse Rate 111 H 106 H 114 H Respiratory Rate 22 H 24 H Blood Pressure 117/65 108/65 Pulse Oximetry 99 100 100 10/26/19 17:51 10/26/19 18:00 10/26/19 20:00 Temperature 98.0 F Pulse Rate 119 H 122 H 114 H Respiratory Rate 30 H 24 H Blood Pressure 100/66 94/52 L Pulse Oximetry 100 100 100 10/26/19 20:10 10/26/19 22:00 10/26/19 23:03 Temperature Pulse Rate 115 H 116 H 111 H Respiratory Rate 20 Blood Pressure 109/76 Pulse Oximetry 100 100 100 10/27/19 00:00 10/27/19 02:00 10/27/19 02:10 Temperature 98.5 F Pulse Rate 121 H 117 H 114 H Respiratory Rate 22 H 26 H Blood Pressure 118/53 L 81/53 L Pulse Oximetry 30 L 100 100 10/27/19 04:00 10/27/19 05:30 10/27/19 06:00 Temperature 97.9 F Pulse Rate 113 H 116 H 114 H Respiratory Rate 24 H 24 H Blood Pressure 112/62 116/78 Pulse Oximetry 100 100 100 10/27/19 07:54 10/27/19 08:00 10/27/19 10:00 Temperature 98.2 F Pulse Rate 106 H 114 H 105 H Respiratory Rate 22 H 22 H Blood Pressure 130/63 123/65 Pulse Oximetry 100 100 100 10/27/19 11:54 Temperature Pulse Rate 109 H Respiratory Rate Blood Pressure Pulse Oximetry 100 Intake/Output Intake/Output: Intake & Output 10/24/19 10/25/19 10/26/19 10/27/19 23:59 23:59 23:59 23:59 Intake Total 2063 2805 2436 200 Output Total 2267 140 2150 35 Balance -198 2665 286 165 Meds/Results Medications: Active Medications Generic Name Dose Route Start Last Admin Trade Name Freq PRN Reason Stop Dose Admin Bisacodyl 10 mg 10/14/19 17:03 10/16/19 17:51 Dulcolax Suppository RECTAL 10 mg QAM PRN Administration Constipation Dextrose 12.5 gm 10/16/19 20:09 10/23/19 08:56 Dextrose 50% Syringe IV PUSH 12.5 gm PRN PRN Administration Hypoglycemia Protocol Fentanyl Citrate 25 mcg 10/26/19 07:35 10/26/19 18:30 Sublimaze IV PUSH 25 mcg Q1H PRN Administration Pain Rated 7-10 Fluticasone Propionate 2 spray 10/16/19 09:00 10/27/19 09:10 Flonase 0.05% Nasal [place] NASAL 2 spray DAILY JOHNATHAN Administration Glucagon 1 mg 10/16/19 20:09 Glucagon For Inj IM PRN PRN Hypoglycemia Protocol Glucose 15 gm 10/16/19 20:09 Glutose 15 PO PRN PRN Hypoglycemia Protocol Heparin Sodium (Porcine) 5,000 units 10/14/19 22:00 10/27/19 06:05 Heparin Sodium SUB-Q 5,000 units Q8HR JOHNATHAN Administration Metronidazole 500 mg in 100 mls @ 100 mls/hr 10/13/19 18:00 10/27/19 07:05 Flagyl 500 Mg/Iso Soln 100 Ml IVPB Infused Q6HR JOHNATHAN Infusion Dextrose 1,000 mls @ 100 mls/hr 10/16/19 20:09 Dextrose 5% 1,000 Ml IVPB PRN PRN Hypoglycemia Protocol Fluconazole 200 mg in 100 mls @ 100 mls/hr 10/23/19 09:00 10/27/19 09:14 Diflucan 200 Mg/Nacl 100 Ml IVPB 100 mls/hr QAM JOHNATHAN Administration Albumin Human 50 mls @ 999 mls/hr 10/24/19 02:22 Albutein IVPB 11/23/19 02:23 Q10M PRN HYPOTENSION Albumin Human 50 mls @ 999 mls/hr 10/26/19 06:37 Albutein IVPB 11/25/19 06:38 Q10M PRN HYPOTENSION Insulin Aspart 4 - 8 units 10/17/19 00:00 10/27/19 06:06 Novolog SUB-Q 4 units Q6HR JOHNATHAN Administration Protocol Lactobacillus Acidophilus 1 tablet 10/16/19 09:00 10/27/19
[2019-10-27 12:32] LABS: Glucose Point of Care 201 (65-105)
--- NOTE | 2019-10-27 13:04 | PM.PNGS ---
Progress Note: A&P Assessment and Plan (1) Peritoneal dialysis catheter infection: Code(s): T85.71XA - Infection and inflammatory reaction due to peritoneal dialysis catheter, initial encounter Status: Acute Assessment and Plan: PD catheter removed on October 20. SILVA drains show serosanguineous fluid. This is decreasing daily and once almost nothing is coming out will remove them. The right 1 had only about 10 cc out for the last 24 hours so may be able to be removed tomorrow 10/28/2019. Peritoneal fluid cultures show yeast, Linda albicans. pt on Fluconazole. (2) Severe sepsis: Code(s): A41.9 - Sepsis, unspecified organism; R65.20 - Severe sepsis without septic shock Status: Acute Assessment and Plan: Fungal peritonitis, aspiration pneumonitis, on antifungal and anti-microbial therapy. Remains on mechanical ventilator. (3) Peritonitis: Onset Date: ~10/2019 Code(s): K65.9 - Peritonitis, unspecified Status: Acute Assessment and Plan: Should improve with peritoneal dialysis catheter removed. Continue antifungal treatment. (4) ESRD (end stage renal disease) on dialysis: Code(s): N18.6 - End stage renal disease; Z99.2 - Dependence on renal dialysis Status: Acute Assessment and Plan: Patient receiving Hemodialysis via right IJ tunneled central venous catheter. Additional Plan Will plan to follow output from SILVA drains. (Now about 10- 20 cc on each side Q 24 hours). Most likely will leave until there is almost no output. Patient currently on Fluconazoe for an antifungal. Subjective Subjective Date/Time Seen: 10/27/19 12:04 Patient's at bedside when I visited today. I let her know how the patient is doing surgically. She states the patient does look at her but she is not sure if he knows her period nurse reports that patient has not had bowel movement that she knows of the last 24 hours. Abdomen is slightly distended but with good bowel sounds. He is tolerating his tube feedings. Post Op day: POD #6 Patient reports: no new complaints Review of Systems Review of Systems: ROS unobtainable: Yes unobtainable due to endotracheal tube and unobtainable due to medical condition Exam HENMT: Head: normal to inspection, normocephalic and atraumatic Ears: hearing grossly normal bilaterally and external ears normal General nose exam: Normal external nose present and no epistaxis Mouth: Yes Normal oral and palatal mucosa present and Yes moist mucous membranes Eyes: General: appearance normal, both eyes and all related structures Sclera: sclerae normal EOM: EOMs intact bilaterally Neck: Neck: normal visual inspection, full ROM, no JVD and other ( right IJ tunneled dialysis catheter dry and intact.) Lymphatic: lymphadenopathy not noted Other: Incisions on right neck clean and dry. Triple lumen central line on the left without signs of purulent exudate. Resp: Effort & Inspection: able to speak in complete sentences and no respiratory distress Auscultation: rhonchi right upper and diminished lung sounds (at bases) bilateral Other: Patient intubated and ventilated. Upper anterior lung findings fairly clear to auscultation bilaterally today. GI: Inspection: normal to inspection, incision ( Serosanguineous fluid from each SILVA drain, dressings dry.), scar, no visible herniation and other ( Protuberant abdomen, possibly distended) Auscultation: absent bowel sounds and Hypoactive bowel sounds present Rectal Exam: deferred Other: Incisions on the abdomen healing well with bilateral lower abdominal SILVA drains. The right side has some drainage along it and will need a dressing change. patient's nurse reports that the exit site from the previous PD catheter is still able to be packed for about 2-3 cm medially. A small amount of iodoform gauze was packed into this. We will pack this with quarter-inch iodoform gauze and it will be unde
[2019-10-27 13:56] LABS: Basophils Absolute Auto 0.2 K/mm3 (0.0-0.1); Basophils Percent Auto 0.9 % (0.2-1.2); Eosinophils Absolute Auto 0.3 K/mm3 (0-0.3); Eosinophils Percent Auto 1.8 % (0-4.4); Hematocrit 25.6 % (42.0-52.0); Immature Granulocyte Absolute 0.92 K/mm3 (0.00-0.031); Immature Granulocyte Percent A 5.7 % (0-0.5); Lymphocytes Absolute Auto 1.67 K/mm3 (0.9-3.2); Lymphocytes Percent Auto 10.3 % (18.3-44.2); Mean Corpuscular HGB Conc 31.3 g/dl (32-36); Mean Corpuscular Hemoglobin 32.3 pg (26-34); Mean Corpuscular Volume 103.2 fl (80-100); Mean Platelet Volume 11.8 fl (7.4-10.4); Monocytes Absolute Auto 1.1 K/mm3 (0.1-0.6); Monocytes Percent Auto 6.5 % (2.6-8.5); Neutrophils Absolute Auto 12.2 K/mm3 (1.3-6.7); Neutrophils Percent Auto 74.8 % (45.5-73.1); Platelet Count Result 197 k/mm3 (150-375); Red Blood Count 2.48 M/mm3 (4.6-6.20); Red Cell Distribution Width 21.1 % (11.5-14.5); White Blood Count 16.2 K/mm3 (4.5-10.0)
[2019-10-27 14:09] LABS: Anisocytosis 2+ (NORMAL); Platelet Estimate Adequate (Adequate); Polychromasia 1+ (NORMAL); Prothrombin Time 22.6 Seconds (11.1-14.7)
[2019-10-27 14:10] LABS: Anion Gap 6 mmol/L (8-16); Blood Urea Nitrogen 35 mg/dL (9-20); Carbon Dioxide 25 mmol/L (22-30); Chloride 100 mmol/L (98-107); Estimated CRCL calculation 21 ml/min; Estimated Glomerular Filt Rate 28; Glucose 179 mg/dL (75-110); Potassium 3.5 mmol/L (3.4-5.0); Sodium 131 mmol/L (137-145)
--- NOTE | 2019-10-27 16:27 | PM.IMPN ---
Progress Note: A&P Assessment and Plan (1) Septic shock: Code(s): A41.9 - Sepsis, unspecified organism; R65.21 - Severe sepsis with septic shock Status: Deleted Assessment and Plan: Awaiting PEG and trache tomorrow patient is 78-year-old male with history of end-stage renal disease on peritoneal dialysis presented emergency department had a cardiac arrest ROSC after 1 round of epinephrine per protocol ROSC, with shortness of breath and hypoxic patient was intubated currently on vent, patient may have aspirated pneumonia, patient in septic shock and on pressor, patient being treated with Levaquin, vancomycin and Flagyl, discussed with insurance verification clerk prognosis is poor we appreciate insurance verification clerk, patient is seen by Dr. Aguialr nephrology for peritoneal dialysis, Rock Splitter had spoken with patient's , she would like to keep full code and continue to treat the patient. septic shock resolved and patient is off Levophed, septic shock most likely secondary to aspiration pneumonia possibly peritonitis and treated with Flagyl cefepime and ceftazidime intraperitoneal by nephrology, patient is his leukocytosis etiology uncertain seen by Dr. Rowe and insurance verification clerk, stopped all antibiotic and has started the patient vancomycin and aztreonam, meanwhile patient was seen by surgery and peritoneal dialysis catheter was removed and now patient is on hemodialysis,workup is in progress patient clinically stable on vent, patient is seen by intensive, Dr. Rowe, ID Dr. Aguilar nephrology and General surgery team, patient intubated had a dialysis on 10/23 and will have today, , unable to wean the patient off the ventilator, patient will have a PEG and trach tomorrow and may need to be transferred to LTAC patient (2) Cardiorespiratory arrest: Code(s): I46.9 - Cardiac arrest, cause unspecified Status: Acute Assessment and Plan: Sp cardioarrest (3) Aspiration pneumonia: Code(s): J69.0 - Pneumonitis due to inhalation of food and vomit Status: Acute Assessment and Plan: Patient had aspirated resulting in pneumonia (4) Atrial fibrillation: Onset Date: ~09/2019 Code(s): I48.91 - Unspecified atrial fibrillation Status: Acute (5) Hyponatremia: Onset Date: Unknown Code(s): E87.1 - Hypo-osmolality and hyponatremia Status: Acute Assessment and Plan: Rate is controlled (6) Abnormal computed tomography of abdomen and pelvis: Code(s): R93.5 - Abnormal findings on diagnostic imaging of other abdominal regions, including retroperitoneum Status: Acute Assessment and Plan: Suspect peritonitis (7) Peritonitis (acute) generalized: Code(s): K65.0 - Generalized (acute) peritonitis Status: Acute Assessment and Plan: Patient on peritoneal dialysis,patient is being treated with antibiotics Subjective Date/time seen: 10/27/19 16:27 Interval history: 78-year-old male with history of end-stage renal disease on peritoneal dialysis presented emergency department had a cardiac arrest ROSC after 1 round of epinephrine per protocol ROSC, with shortness of breath and hypoxic patient was intubated currently on vent, patient may have aspirated pneumonia, patient in septic shock and on pressor, patient being treated with Levaquin, vancomycin and Flagyl, discussed with insurance verification clerk prognosis is poor we appreciate insurance verification clerk, patient is seen by Dr. Aguilar nephrology for peritoneal dialysis, Rock Splitter had spoken with patient's , she would like to keep full code and continue to treat the patient. septic shock resolved and patient is off Levophed, septic shock most likely secondary to aspiration pneumonia possibly peritonitis and treated with Flagyl cefepime and ceftazidime intraperitoneal by nephrology, patient is his leukocytosis etiology uncertain seen by Dr. Rowe and insurance verification clerk, stopped all antibiotic and has started the patient vanc
[2019-10-27 16:50] LABS: Appearance Pleural Fluid Hazy (Clear); Color Pleural Fluid Yellow (Colorless); Pleural fluid source Pleural fluid
[2019-10-27 16:56] LABS: Lymphocytes Pleural Fluid 49 %; Monocytes Pleural Fluid 4 %; Neutrophils Pleural Fluid 47 % (0-25)
[2019-10-27 17:06] LABS: Glucose Point of Care 171 (65-105)
[2019-10-27 23:55] LABS: Glucose Point of Care 199 (65-105)
[2019-10-28] VITALS (32 sets, daily range): BP systolic 61–133; BP diastolic 44–84; PULSE 105–122; RESP 16–28; TEMP 36–37.1; O2SAT 95–100
[2019-10-28 04:44] LABS: Hemoglobin 8.8 g/dL (14.0-18.0); Mean Corpuscular HGB Conc 31.4 g/dl (32-36); Mean Corpuscular Hemoglobin 32.1 pg (26-34); Mean Corpuscular Volume 102.2 fl (80-100); Mean Platelet Volume 11.6 fl (7.4-10.4); Platelet Count Result 229 k/mm3 (150-375); Red Blood Count 2.74 M/mm3 (4.6-6.20); Red Cell Distribution Width 21.7 % (11.5-14.5)
[2019-10-28 04:57] LABS: Alanine Aminotransferase 24 U/L (4-50); Albumin Level 1.8 g/dL (3.5-5.1); Alkaline Phosphatase 334 U/L (38-126); Anion Gap 8 mmol/L (8-16); Aspartate Amino Transferase 47 U/L (17-59); Bilirubin,Total 0.3 mg/dL (0.2-1.3); Blood Urea Nitrogen 41 mg/dL (9-20); Carbon Dioxide 24 mmol/L (22-30); Chloride 100 mmol/L (98-107); Estimated CRCL calculation 17 ml/min; Estimated Glomerular Filt Rate 22; Glucose 187 mg/dL (75-110); Magnesium 1.6 mg/dL (1.6-2.3); Phosphorus 3.9 mg/dL (2.5-4.5); Potassium 3.7 mmol/L (3.4-5.0); Sodium 132 mmol/L (137-145)
--- NOTE | 2019-10-28 05:30 | PCRCNOTE ---
On 10-28-2019 I tried to obtain an ABG on pt and was unable to get it.
[2019-10-28] MEDS: CENTRAL LINE FLUSH 10 ML IV PUSH ×3 (06:03→20:16)
[2019-10-28] MEDS: metroNIDAZOLE 500 MG/ISO 100ML 500 MG/100 ML BAG 100 MG IVPB ×4 (06:03→23:20)
--- NOTE | 2019-10-28 07:48 | WPDGIPROGNO ---
Progress Note: A&P Additional Plan Patient remains on the ventilator today. Eyes are open appears somewhat alert. Unable to follow commands. Physical exam reveals vital signs to be stable. HEENT exam is anicteric. Lungs reveal a few rhonchi. Heart without murmur. Abdomen modestly protuberant. Bowel sounds are present soft no evidence for tenderness. No organomegaly evident. BUN 41, creatinine 2.8, platelets are adequate. Hemoglobin stable. Protime 2.0 despite vitamin K therapy. Impression 1. Ventilator dependent. 2. Peritonitis. Peritoneal infection improving at this point. 3. Coagulopathy plan is for PEG tube because of ventilator dependency period to assist in eventual placement. Because of elevated protime we may need to defer PEG until this is accomplished. Plan is for additional vitamin K if necessary. Subjective Date/time seen: 10/28/19 07:48 Objective Data Vital Signs Vital Signs: Vital Signs - 24 hr 10/27/19 07:54 10/27/19 08:00 10/27/19 10:00 Temperature 98.2 F Pulse Rate 106 H 114 H 105 H Respiratory Rate 22 H 22 H Blood Pressure 130/63 123/65 Pulse Oximetry 100 100 100 10/27/19 11:54 10/27/19 12:00 10/27/19 13:44 Temperature 97.9 F Pulse Rate 109 H 107 H 106 H Respiratory Rate 22 H Blood Pressure 100/59 L Pulse Oximetry 100 100 100 10/27/19 14:00 10/27/19 14:30 10/27/19 16:00 Temperature 98.1 F Pulse Rate 104 H 102 H 97 Respiratory Rate 30 H 30 H 18 Blood Pressure 99/57 L 106/57 L 125/60 Pulse Oximetry 100 100 100 10/27/19 16:02 10/27/19 18:00 10/27/19 20:00 Temperature Pulse Rate 101 H 107 H 109 H Respiratory Rate 18 Blood Pressure 125/60 Pulse Oximetry 100 100 10/27/19 20:09 10/27/19 20:11 10/27/19 22:00 Temperature 98.4 F Pulse Rate 105 H 106 H 104 H Respiratory Rate 19 22 H Blood Pressure 113/47 L 106/53 L Pulse Oximetry 99 98 100 10/27/19 23:02 10/28/19 00:00 10/28/19 02:00 Temperature 97.5 F L Pulse Rate 108 H 116 H 112 H Respiratory Rate 20 17 Blood Pressure 113/84 121/69 Pulse Oximetry 100 100 99 10/28/19 02:34 10/28/19 04:00 10/28/19 04:12 Temperature 98.1 F Pulse Rate 111 H 115 H 118 H Respiratory Rate 27 H Blood Pressure 112/80 Pulse Oximetry 99 99 99 10/28/19 06:00 Temperature Pulse Rate 116 H Respiratory Rate 23 H Blood Pressure 106/62 Pulse Oximetry 100 Intake/Output Intake/Output: Intake & Output 10/25/19 10/26/19 10/27/19 10/28/19 23:59 23:59 23:59 23:59 Intake Total 2805 2436 1098 340 Output Total 140 2150 205 26 Balance 2665 286 893 314 Meds/Results Medications: Active Medications Generic Name Dose Route Start Last Admin Trade Name Freq PRN Reason Stop Dose Admin Bisacodyl 10 mg 10/14/19 17:03 10/16/19 17:51 Dulcolax Suppository RECTAL 10 mg QAM PRN Administration Constipation Dextrose 12.5 gm 10/16/19 20:09 10/23/19 08:56 Dextrose 50% Syringe IV PUSH 12.5 gm PRN PRN Administration Hypoglycemia Protocol Epoetin Avni-epbx 10,000 units 10/28/19 18:00 Retacrit IV PUSH 10/28/19 18:01 ONCE ONE Fentanyl Citrate 25 mcg 10/26/19 07:35 10/26/19 18:30 Sublimaze IV PUSH 25 mcg Q1H PRN Administration Pain Rated 7-10 Fluticasone Propionate 2 spray 10/16/19 09:00 10/27/19 09:10 Flonase 0.05% Nasal [place] NASAL 2 spray DAILY JOHNATHAN Administration Glucagon 1 mg 10/16/19 20:09 Glucagon For Inj IM PRN PRN Hypoglycemia Protocol Glucose 15 gm 10/16/19 20:09 Glutose 15 PO PRN PRN Hypoglycemia Protocol Heparin Sodium (Porcine) 5,000 units 10/14/19 22:00 10/28/19 02:27 Heparin Sodium SUB-Q Not Given Q8HR JOHNATHAN Metronidazole 500 mg in 100 mls @ 100 mls/hr 10/13/19 18:00 10/28/19 06:03 Flagyl 500 Mg/Iso Soln 100 Ml IVPB 100 mls/hr Q6HR JOHNATHAN Administration Dextrose 1,000 mls @ 100 mls/hr 10/16/19 20:09 Dextrose 5% 1,000 Ml IVPB P
[2019-10-28] MEDS: FLUTICASONE PROPIONATE 0.05% NA SPR 16 GM BTL (*BKC) 2 SPRAY NASAL (08:05)
[2019-10-28] MEDS: PANTOPRAZOLE SODIUM IV 40 MG VIAL IV PUSH ×2 (08:05→20:16)
[2019-10-28] MEDS: ACIDOPHILUS/BULGARICUS CHEWABLE TABLET 1 TABLET PO (08:05)
[2019-10-28] MEDS: SILVERGEL (ELTA) 45 ML 1 APPLIC TOPICAL (08:05)
[2019-10-28] MEDS: PRAVASTATIN SODIUM 20 MG TABLET 80 MG PO (08:06)
[2019-10-28] MEDS: FLUCONAZOLE 200 MG/NACL 100 ML 200 MG/100 ML BAG 100 MG IVPB (08:09)
--- NOTE | 2019-10-28 08:20 | WPDINTPN ---
Progress Note: A&P Assessment and Plan (1) Severe sepsis: Code(s): A41.9 - Sepsis, unspecified organism; R65.20 - Severe sepsis without septic shock Status: Acute Assessment and Plan: and septic shock secondary to fungal peritonitis and PNA - OFF LEVOPHED since 2:00 a.m. on 10/16/2019 - peritoneal cultures growing Yeast - continue IV vancomycin, aztreonam, metronidazole and fluconazole per infectious disease - appreciate infectious disease following the patient - leukocytosis gradually improving - CT scan of the abdomen and pelvis on 10/16 showed interval progression of patchy bilateral airspace disease, compatible pneumonia. Bilateral pleural effusions right greater than left moderate ascites which appears loculated the left upper abdomen, cannot exclude peritonitis, abdominal wall thickening suspicious for cystitis. peritoneal dialysis catheter present in the pelvis - 10/19/2019 peritoneal fluid Gram stain , no organism seen - 10/19/2019 peritoneal fluid culture, growing Linda albicans - 10/18/2019 blood cultures negative x2 - 10/21/2019 repeat peritoneal cultures and peritoneal catheter cultures growing Linda albicans (2) Peritonitis: Onset Date: ~10/2019 Code(s): K65.9 - Peritonitis, unspecified Status: Acute Assessment and Plan: Linda peritnoitis - status post removal of peritoneal dialysis catheter on 10/21/2019, Catheter and peritoneal fluid sent for culture - SILVA drains x2 draining serosanguineous fluid, surgery following the patient - appreciate infectious disease following the patient - continue IV fluconazole per infectious disease (3) Acute respiratory failure: Code(s): J96.00 - Acute respiratory failure, unspecified whether with hypoxia or hypercapnia Status: Acute Assessment and Plan: - patient on mechanical ventilation With ASV peep of 5, 30% FiO2 - chest x-ray any ABGs reviewed - currently off all sedation since 2:00 p.m. on 10/17/2019, - Opens his eyes but not tracking ir following commands - patient volume overloaded, continue dialysis - tried pressure support ventilation but failed due to very high RSBI despite pressure support of 20 - ultrasound-guided thoracentesis 10/27/2019 - Only 150 mL fluid was removed - patient has been on ventilator for close to 2 weeks and is in no way close to extubation. ENT consulted for tracheostomy. planned for this Saturday (4) Aspiration pneumonia: Code(s): J69.0 - Pneumonitis due to inhalation of food and vomit Status: Acute Assessment and Plan: - continue antibiotics as above (5) Encephalopathy: Code(s): G93.40 - Encephalopathy, unspecified Status: Acute Assessment and Plan: - gradually improving - continue to hold sedation - encephalopathy likely multifactorial related to metabolic /uremic encephalopathy, infectious encephalopathy, medication related - neurology has been consulted and appreciate their evaluation and recommendations - EEG was done on 10/20/2019 and discussed with Neurology, EEG had significant slowing, likely related to severe encephalopathy. No epileptiform discharges were seen - patient did have a CT scan of the brain on 10/18/2019: was negative for any acute intracranial pathology (6) Cardiorespiratory arrest: Code(s): I46.9 - Cardiac arrest, cause unspecified Status: Acute Assessment and Plan: PEA arrest likely due aspiration,ROSC after 1 round of epinephrine - post arrest pt was following commands and so did not require hypothermia protocol - trops elevated to 0.40 likely due to cardiac arrest and renal failure (7) Colitis: Code(s): K52.9 - Noninfective gastroenteritis and colitis, unspecified Status: Acute Assessment and Plan: RESOLVED - patient presented with abdominal pain, nausea, vomiting and diarrhea, CT scan of the abdomen and pelvis on 10/13/2019 showed sigmoid col
[2019-10-28 08:26] LABS: INR 1.8; Prothrombin Time 20.5 Seconds (11.1-14.7)
--- NOTE | 2019-10-28 10:13 | PCPTNOTE ---
Attempted therapy session. Pt was in dialysis. Will attempt again.
--- NOTE | 2019-10-28 10:43 | PM.PNNEP ---
Progress Note: A&P Assessment and Plan (1) ESRD (end stage renal disease) on dialysis: Code(s): N18.6 - End stage renal disease; Z99.2 - Dependence on renal dialysis Status: Acute Assessment and Plan: converted to hemodialysis given #2 HD today and continue M/W/F schedule for now follow electrolytes, volume status, and clearance (2) Peritonitis (acute) generalized: Code(s): K65.0 - Generalized (acute) peritonitis Status: Acute Assessment and Plan: cultures growing yeast s/p PD catheter removal and washout drains in place antibiotics/antifungals as outlined by Infectious Disease continue supportive therapy (3) Hyponatremia: Onset Date: Unknown Code(s): E87.1 - Hypo-osmolality and hyponatremia Status: Acute Assessment and Plan: partly due to ESRD slow improvent with hemodialysis follow trend (4) Cardiorespiratory arrest: Code(s): I46.9 - Cardiac arrest, cause unspecified Status: Acute Assessment and Plan: presumably precipitated by aspiration remains on mechanical ventilation (5) Aspiration pneumonia: Code(s): J69.0 - Pneumonitis due to inhalation of food and vomit Status: Acute Assessment and Plan: on antibiotics intubated and on mechanical ventilation need for tracheostomy -- plan for placement tomorrow (6) Encephalopathy: Code(s): G93.40 - Encephalopathy, unspecified Status: Acute Assessment and Plan: off sedation due to #4 (?) EEG results noted continue supportive care Will continue to follow. Subjective Date/time seen: 10/28/19 10:43 Tolerating dialysis at the time of my visit (seen on HD at ~ 10:30AM) but not tolerating fluid removal very well (which has been a chronic issue); no apparent distress; possible PEG tube placement today. Exam Narrative: Exam Narrative: General: WD/WN male - intubated Heart: normal S1 and S2; no rub Lungs: crackles at bases and diminished breath sonds Abdomen: soft, nontender, nondistended, positive bowel sounds Extremities: no cyanosis or clubbing; edema in upper/lower extremities as well as abdominal wall Skin: warm and dry Objective Data Vital Signs Vital Signs: Vital Signs Temp Pulse Resp BP Pulse Ox 10/28/19 09:00 37.1 C 118 H 27 H 109/52 L 98 10/28/19 08:46 105 H 100 10/28/19 06:00 116 H 23 H 106/62 100 10/28/19 04:12 118 H 99 10/28/19 04:00 36.7 C 115 H 27 H 112/80 99 10/28/19 02:34 111 H 99 10/28/19 02:00 112 H 17 121/69 99 10/28/19 00:00 36.4 C L 116 H 20 113/84 100 10/27/19 23:02 108 H 100 10/27/19 22:00 104 H 22 H 106/53 L 100 10/27/19 20:11 106 H 98 10/27/19 20:09 36.9 C 105 H 19 113/47 L 99 10/27/19 20:00 109 H 10/27/19 18:00 107 H 18 125/60 100 10/27/19 16:02 101 H 100 10/27/19 16:00 36.7 C 97 18 125/60 100 10/27/19 14:30 102 H 30 H 106/57 L 100 10/27/19 14:00 104 H 30 H 99/57 L 100 10/27/19 13:44 106 H 100 10/27/19 12:00 36.6 C 107 H 22 H 100/59 L 100 10/27/19 11:54 109 H 100 Intake/Output Intake/Output: Intake & Output 10/25/19 10/26/19 10/27/19 10/28/19 23:59 23:59 23:59 23:59 Intake Total 2805 2436 1098 440 Output Total 140 2150 205 26 Balance 2665 286 893 414 Meds/Results Medications: Active Medications Generic Name Dose Route Start Last Admin Trade Name Freq PRN Reason Stop Dose Admin Bisacodyl 10 mg 10/14/19 17:03 10/16/19 17:51 Dulcolax Suppository RECTAL 10 mg QAM PRN Administration Constipation Dextrose 12.5 gm 10/16/19 20:09 10/23/19 08:56 Dextrose 50% Syringe IV PUSH 12.5 gm PRN PRN Administration Hypoglycemia Protocol Epoetin Avni-epbx 10,000 units 10/28/19 18:00 Retacrit IV PUSH 10/28/19 18:01 ONCE ONE Fentanyl Citrate 25 mcg 10/26/19 07:35 10/26/19 18:30 Sublimaze IV PUSH 25 mc
[2019-10-28] MEDS: EPOETIN ALFA-EPBX 10,000 UNITS/ML VIAL 10000 UNITS IV PUSH (11:02)
--- NOTE | 2019-10-28 12:05 | PCFNICU ---
ICU Rounding Note: Pt current nutrition is NPO for PEG placement. Nutrition recommendation: Agree with current recommendations. Last recorded weight is 73.5 kg which has decreased by 1.8 kg since last seen. May be related to NPO status. Bowel Motility: last bowel movement reported on 10/27/19 Labs Reviewed: Hgb (8.8) Hct (28) Alb (1.8) K (132) GFR (22) BUN (41) Cr (2.8) Glu (187) Meds Noted:Albumin, Dulcolax, Fentanyl, Diflucan, Novolog, Lactinex, Synthroid, Flagyl, Protonix, Miralax, Calcium Gluconate, Phytonadione, KCl, Heparin Sodium, Sodium Chloride Additional Notes: coccyx with pressure ulcer and skin tears on buttox, arms, and legs. 2 SILVA drains in abdomen. Patient is on dialysis and getting a PEG today (10/28/19). Patient scheduled for Tracheotomy on Saturday (10/30/19) Following daily in ICU rounds. Assessing/reassessing every 3 days.
--- NOTE | 2019-10-28 12:20 | WPDGIPROGNO ---
Progress Note: A&P Additional Plan Patient remains intubated. Tolerating tube feedings. Physical exam reveals him to be intubated he follows me with his eyes. Unable to know his level of alertness. Lungs are clear few rales. Heart without murmur. Abdomen soft nontender mildly protuberant. Impression 1. Ventilator dependent. 2. Nutritional support. Currently through NG tube. Because of dialysis we will defer PEG tube until . Continue to correct coags. Vitamin K daily. Peg tube placement planned in the morning. Subjective Date/time seen: 10/28/19 12:20 Objective Data Vital Signs Vital Signs: Vital Signs - 24 hr 10/27/19 13:44 10/27/19 14:00 10/27/19 14:30 Temperature Pulse Rate 106 H 104 H 102 H Respiratory Rate 30 H 30 H Blood Pressure 99/57 L 106/57 L Pulse Oximetry 100 100 100 10/27/19 16:00 10/27/19 16:02 10/27/19 18:00 Temperature 98.1 F Pulse Rate 97 101 H 107 H Respiratory Rate 18 18 Blood Pressure 125/60 125/60 Pulse Oximetry 100 100 100 10/27/19 20:00 10/27/19 20:09 10/27/19 20:11 Temperature 98.4 F Pulse Rate 109 H 105 H 106 H Respiratory Rate 19 Blood Pressure 113/47 L Pulse Oximetry 99 98 10/27/19 22:00 10/27/19 23:02 10/28/19 00:00 Temperature 97.5 F L Pulse Rate 104 H 108 H 116 H Respiratory Rate 22 H 20 Blood Pressure 106/53 L 113/84 Pulse Oximetry 100 100 100 10/28/19 02:00 10/28/19 02:34 10/28/19 04:00 Temperature 98.1 F Pulse Rate 112 H 111 H 115 H Respiratory Rate 17 27 H Blood Pressure 121/69 112/80 Pulse Oximetry 99 99 99 10/28/19 04:12 10/28/19 06:00 10/28/19 08:00 Temperature 98.4 F Pulse Rate 118 H 116 H 110 H Respiratory Rate 23 H 28 H Blood Pressure 106/62 109/52 L Pulse Oximetry 99 100 100 10/28/19 08:46 10/28/19 09:00 10/28/19 09:17 Temperature 98.7 F Pulse Rate 105 H 118 H 116 H Respiratory Rate 27 H Blood Pressure 109/52 L 122/81 Pulse Oximetry 100 98 10/28/19 09:30 10/28/19 09:45 10/28/19 10:00 Temperature Pulse Rate 117 H 120 H 114 H Respiratory Rate 28 H Blood Pressure 121/67 61/44 L 114/52 L Pulse Oximetry 100 10/28/19 10:15 10/28/19 10:30 10/28/19 10:45 Temperature Pulse Rate 117 H 116 H 118 H Respiratory Rate Blood Pressure 116/70 93/56 L 124/57 L Pulse Oximetry 10/28/19 11:00 10/28/19 11:15 10/28/19 11:30 Temperature Pulse Rate 119 H 121 H 121 H Respiratory Rate Blood Pressure 114/77 110/51 L Pulse Oximetry 10/28/19 11:31 10/28/19 11:45 10/28/19 12:00 Temperature 97.5 F L Pulse Rate 118 H 116 H 113 H Respiratory Rate 24 H Blood Pressure 83/52 L 111/79 Pulse Oximetry 100 100 Intake/Output Intake/Output: Intake & Output 10/25/19 10/26/19 10/27/19 10/28/19 23:59 23:59 23:59 23:59 Intake Total 2805 2436 1098 540 Output Total 140 2150 205 26 Balance 2665 286 893 514 Meds/Results Medications: Active Medications Generic Name Dose Route Start Last Admin Trade Name Freq PRN Reason Stop Dose Admin Aspirin 81 mg 10/28/19 12:00 Aspirin Ec PO QAM JOHNATHAN Bisacodyl 10 mg 10/14/19 17:03 10/16/19 17:51 Dulcolax Suppository RECTAL 10 mg QAM PRN Administration Constipation Dextrose 12.5 gm 10/16/19 20:09 10/23/19 08:56 Dextrose 50% Syringe IV PUSH 12.5 gm PRN PRN Administration Hypoglycemia Protocol Epoetin Avni-epbx 10,000 units 10/28/19 18:00 10/28/19 11:02 Retacrit IV PUSH 10/28/19 18:01 10,000 units ONCE ONE Administration Fentanyl Citrate 25 mcg 10/26/19 07:35 10/26/19 18:30 Sublimaze IV PUSH 25 mcg Q1H PRN Administration Pain Rated 7-10 Fluticasone Propionate 2 spray 10/16/19 09:00 10/28/19 08:05 Flonase 0.05% Nasal [place] NASAL 2 spray DAILY JOHNATHAN Administration Glucagon 1 mg 10/16/19 20:09 Glucagon For Inj IM PRN PRN Hypoglycemia Protocol Glucose 15 gm 10/16/19 20:09 Glutose 15 PO PRN [facility]
--- NOTE | 2019-10-28 12:34 | PCNSR ---
On 10/28/19, the student, Nam Guillen, provided care and completed [employer] documentation on this patient. I have reviewed the student's documentation and agree with the findings other than sodium level was 132, rather than potassium level.
[2019-10-28] MEDS: ASPIRIN 81 MG ENTERIC TABLET PO (13:08)
--- NOTE | 2019-10-28 13:12 | WPDINFPN2 ---
Progress Note: A&P Assessment and Plan (1) Leukocytosis: Onset Date: ~09/2019 Code(s): D72.829 - Elevated white blood cell count, unspecified Status: Acute Assessment and Plan: 1. Leukocytosis, due to fungal peritonitis from his catheter. WBC declining overall, though still high, back up since yesterday. 2. Colitis by CT 3. CRF on HD now 4. PCN intolerance 5. Pleural effusion, not infected by Gram stain/culture so far REC off antibacterials. Fluconazole # 7 (antifungal #8). POD # 7 cath removal. Following WBC over time. Subjective Date/time seen: 10/28/19 13:12 Interval history: intubated and on HD, eyes open briefly Exam Narrative: Exam Narrative: afebrile Const: General: no acute distress Resp: Effort & Inspection: normal respiratory effort Auscultation: rales Cardio: Rate: regular rate Rhythm: regular rhythm Heart sounds: no gallops and no murmurs GI: Inspection: non-distended GI Palp: Yes Firmness to palpation present (GI), No Tenderness to palpation present (GI) and No Guarding due to palpation present (GI) Auscultation: abnormal bowel sounds Skin: General skin exam: no rashes or lesions noted Objective Data Vital Signs Vital Signs: Vital Signs - 24 hr 10/27/19 13:44 10/27/19 14:00 10/27/19 14:30 Temperature Pulse Rate 106 H 104 H 102 H Respiratory Rate 30 H 30 H Blood Pressure 99/57 L 106/57 L Pulse Oximetry 100 100 100 10/27/19 16:00 10/27/19 16:02 10/27/19 18:00 Temperature 36.7 C Pulse Rate 97 101 H 107 H Respiratory Rate 18 18 Blood Pressure 125/60 125/60 Pulse Oximetry 100 100 100 10/27/19 20:00 10/27/19 20:09 10/27/19 20:11 Temperature 36.9 C Pulse Rate 109 H 105 H 106 H Respiratory Rate 19 Blood Pressure 113/47 L Pulse Oximetry 99 98 10/27/19 22:00 10/27/19 23:02 10/28/19 00:00 Temperature 36.4 C L Pulse Rate 104 H 108 H 116 H Respiratory Rate 22 H 20 Blood Pressure 106/53 L 113/84 Pulse Oximetry 100 100 100 10/28/19 02:00 10/28/19 02:34 10/28/19 04:00 Temperature 36.7 C Pulse Rate 112 H 111 H 115 H Respiratory Rate 17 27 H Blood Pressure 121/69 112/80 Pulse Oximetry 99 99 99 10/28/19 04:12 10/28/19 06:00 10/28/19 08:00 Temperature 36.9 C Pulse Rate 118 H 116 H 110 H Respiratory Rate 23 H 28 H Blood Pressure 106/62 109/52 L Pulse Oximetry 99 100 100 10/28/19 08:46 10/28/19 09:00 10/28/19 09:17 Temperature 37.1 C Pulse Rate 105 H 118 H 116 H Respiratory Rate 27 H Blood Pressure 109/52 L 122/81 Pulse Oximetry 100 98 10/28/19 09:30 10/28/19 09:45 10/28/19 10:00 Temperature Pulse Rate 117 H 120 H 114 H Respiratory Rate 28 H Blood Pressure 121/67 61/44 L 114/52 L Pulse Oximetry 100 10/28/19 10:15 10/28/19 10:30 10/28/19 10:45 Temperature Pulse Rate 117 H 116 H 118 H Respiratory Rate Blood Pressure 116/70 93/56 L 124/57 L Pulse Oximetry 10/28/19 11:00 10/28/19 11:15 10/28/19 11:30 Temperature Pulse Rate 119 H 121 H 121 H Respiratory Rate Blood Pressure 114/77 110/51 L Pulse Oximetry 10/28/19 11:31 10/28/19 11:45 10/28/19 12:00 Temperature 36.4 C L Pulse Rate 118 H 116 H 113 H Respiratory Rate 24 H Blood Pressure 83/52 L 111/79 Pulse Oximetry 100 100 10/28/19 12:15 Temperature 36.7 C Pulse Rate 113 H Respiratory Rate 16 Blood Pressure 107/68 Pulse Oximetry 95 Intake/Output Intake/Output: Intake & Output 10/25/19 10/26/19 10/27/19 10/28/19 23:59 23:59 23:59 23:59 Intake Total 2805 2436 1098 540 Output Total 140 2150 205 1026 Balance 2668 851 872 -470 Meds/Results Medications: Active Medications Generic Name Dose Route Start Last Admin Trade Name Freq PRN Reason Stop Dose Admin Aspirin 81 mg 10/28/19 12:00 Aspirin Ec PO QAM JOHNATHAN Bisacodyl 10 mg 10/14/19 17:03 10/16/19 17:51 Dulcolax Suppository RECTAL 10 mg QAM PRN Administration Constipation Dextrose 12.5 gm 10/16/19 20:0
[2019-10-28 13:18] LABS: Glucose Point of Care 121 (65-105)
--- NOTE | 2019-10-28 17:08 | PM.IMPN ---
Progress Note: A&P Assessment and Plan (1) Septic shock: Code(s): A41.9 - Sepsis, unspecified organism; R65.21 - Severe sepsis with septic shock Status: Deleted Assessment and Plan: Awaiting PEG and trache tomorrow patient is 78-year-old male with history of end-stage renal disease on peritoneal dialysis presented emergency department had a cardiac arrest ROSC after 1 round of epinephrine per protocol ROSC, with shortness of breath and hypoxic patient was intubated currently on vent, patient may have aspirated pneumonia, patient in septic shock and on pressor, patient being treated with Levaquin, vancomycin and Flagyl, discussed with travel agent prognosis is poor we appreciate travel agent, patient is seen by Dr. Aguilar nephrology for peritoneal dialysis, [employer] had spoken with patient's , she would like to keep full code and continue to treat the patient. septic shock resolved and patient is off Levophed, septic shock most likely secondary to aspiration pneumonia possibly peritonitis and treated with Flagyl cefepime and ceftazidime intraperitoneal by nephrology, patient is his leukocytosis etiology uncertain seen by Dr. Rowe and travel agent, stopped all antibiotic and has started the patient vancomycin and aztreonam, meanwhile patient was seen by surgery and peritoneal dialysis catheter was removed and now patient is on hemodialysis,workup is in progress patient clinically stable on vent, patient is seen by intensive, Dr. Rowe, ID Dr. Aguilar nephrology and General surgery team, patient intubated had a dialysis on 10/23 and will have today, , unable to wean the patient off the ventilator, patient will have a PEG and trach tomorrow and may need to be transferred to LTAC patient (2) Cardiorespiratory arrest: Code(s): I46.9 - Cardiac arrest, cause unspecified Status: Acute Assessment and Plan: Sp cardioarrest (3) Aspiration pneumonia: Code(s): J69.0 - Pneumonitis due to inhalation of food and vomit Status: Acute Assessment and Plan: Patient had aspirated resulting in pneumonia (4) Atrial fibrillation: Onset Date: ~09/2019 Code(s): I48.91 - Unspecified atrial fibrillation Status: Acute (5) Hyponatremia: Onset Date: Unknown Code(s): E87.1 - Hypo-osmolality and hyponatremia Status: Acute Assessment and Plan: Rate is controlled (6) Abnormal computed tomography of abdomen and pelvis: Code(s): R93.5 - Abnormal findings on diagnostic imaging of other abdominal regions, including retroperitoneum Status: Acute Assessment and Plan: Suspect peritonitis (7) Peritonitis (acute) generalized: Code(s): K65.0 - Generalized (acute) peritonitis Status: Acute Assessment and Plan: Patient on peritoneal dialysis,patient is being treated with antibiotics Subjective Date/time seen: 10/28/19 17:08 Interval history: 78-year-old male with history of end-stage renal disease on peritoneal dialysis presented emergency department had a cardiac arrest ROSC after 1 round of epinephrine per protocol ROSC, with shortness of breath and hypoxic patient was intubated currently on vent, patient may have aspirated pneumonia, patient in septic shock and on pressor, patient being treated with Levaquin, vancomycin and Flagyl, discussed with travel agent prognosis is poor we appreciate travel agent, patient is seen by Dr. Aguilar nephrology for peritoneal dialysis, [employer] Dem[employer]ator had spoken with patient's , she would like to keep full code and continue to treat the patient. septic shock resolved and patient is off Levophed, septic shock most likely secondary to aspiration pneumonia possibly peritonitis and treated with Flagyl cefepime and ceftazidime intraperitoneal by nephrology, patient is his leukocytosis etiology uncertain seen by Dr. Rowe and travel agent, stopped all antibiotic and has started the patient vancom
--- NOTE | 2019-10-28 17:09 | PM.PNGS ---
Progress Note: A&P Assessment and Plan (1) Peritoneal dialysis catheter infection: Code(s): T85.71XA - Infection and inflammatory reaction due to peritoneal dialysis catheter, initial encounter Status: Acute Assessment and Plan: PD catheter removed on October 20. SILVA drains show serosanguineous fluid. This is decreasing daily and once almost nothing is coming out will remove them. The right 1 had only about 10 cc out for the last 24 hours so may be able to be removed tomorrow 10/29/2019. Peritoneal fluid cultures show yeast, Linda albicans. pt on Fluconazole. (2) Severe sepsis: Code(s): A41.9 - Sepsis, unspecified organism; R65.20 - Severe sepsis without septic shock Status: Acute Assessment and Plan: Fungal peritonitis, aspiration pneumonitis, on antifungal and anti-microbial therapy. Remains on mechanical ventilator. (3) Peritonitis: Onset Date: ~10/2019 Code(s): K65.9 - Peritonitis, unspecified Status: Acute Assessment and Plan: Should improve with peritoneal dialysis catheter removed. Continue antifungal treatment. (4) ESRD (end stage renal disease) on dialysis: Code(s): N18.6 - End stage renal disease; Z99.2 - Dependence on renal dialysis Status: Acute Assessment and Plan: Patient receiving Hemodialysis via right IJ tunneled central venous catheter. Additional Plan Will plan to follow output from SILVA drains. (Now about 10- 20 cc on each side Q 24 hours). Most likely will leave until there is almost no output. Patient currently on Fluconazoe for an antifungal. PEG and trach being planned for the end of this week. Subjective Subjective Date/Time Seen: 10/28/19 17:09 Post Op day: POD # 7 Patient reports: no new complaints Interval history: Nurse reports patient more alert. Dialysis nurse reports he has been shaking his head yes or no to questions through the morning. Nurse reports patient has had multiple loose stools in the last 24 hours. Still tolerating tube feedings through the NG. Review of Systems Review of Systems: ROS unobtainable: Yes unobtainable due to endotracheal tube and unobtainable due to medical condition Exam HENMT: Head: normal to inspection, normocephalic and atraumatic Ears: hearing grossly normal bilaterally and external ears normal General nose exam: Normal external nose present and no epistaxis Mouth: Yes Normal oral and palatal mucosa present and Yes moist mucous membranes Eyes: General: appearance normal, both eyes and all related structures Sclera: sclerae normal EOM: EOMs intact bilaterally Neck: Neck: normal visual inspection, full ROM, no JVD and other ( right IJ tunneled dialysis catheter dry and intact.) Lymphatic: lymphadenopathy not noted Other: Incisions on right neck clean and dry. Triple lumen central line on the left without signs of purulent exudate. Resp: Effort & Inspection: able to speak in complete sentences and no respiratory distress Auscultation: rhonchi right upper and diminished lung sounds (at bases) bilateral Other: Patient intubated and ventilated. Upper anterior lung findings fairly clear to auscultation bilaterally today. Cardio: Rate: regular rate Rhythm: regular rhythm (appears to be in sinus rhythm with HR [address]) and abnormal rhythm irregularly irregular Heart sounds: Murmur heart sound present GI: Inspection: normal to inspection, incision ( Serosanguineous fluid from each SILVA drain, dressings dry.), scar, no visible herniation and other ( Protuberant abdomen, possibly distended) Auscultation: absent bowel sounds and Hypoactive bowel sounds present Rectal Exam: deferred Other: Incisions on the abdomen healing well with bilateral lower abdominal SILVA drains. The right side has some drainage along it and will need a dressing change. patient's nurse reports that the exit site from the previous PD catheter is still able to be packed
[2019-10-28 17:24] LABS: Glucose Point of Care 118 (65-105)
[2019-10-28 23:17] LABS: Glucose Point of Care 163 (65-105)
[2019-10-29] VITALS (21 sets, daily range): BP systolic 82–138; BP diastolic 48–85; PULSE 70–122; RESP 17–213; TEMP 36.4–37.3; O2SAT 96–100
[2019-10-29 04:34] LABS: Alveolar/Arterial O2 Gradient 80.7 mmHg; Base Excess ABG -1.2 mEq/l (+/-2.0); Carboxyhemoglobin 0.3 % THb (0-2.0); Fractional Inspired Oxygen 30 %; Methemoglobin ABG 0.4 %THb (0-1.5); Oxygen Content ABG 13.7 %vol (16.0-22.0); Oxygen Saturation ABG 97.8 % (95.0-100.0); Oxyhemoglobin 96.2 % THb (90.0-100.0); PCO2 ABG 31.1 mmHg (35.0-45.0); PO2 ABG 96.7 mmHg (80.0-100.0); PO2 FiO2 Ratio Arterial Blood 3.22 %; Reduced Hemoglobin 3.1 %THb (0-5.0); pH ABG 7.467 (7.350-7.450)
[2019-10-29 04:35] LABS: Device VENTILATOR; Modified Allen's Test Pass; Site Drawn RIGHT RADIAL
[2019-10-29 04:36] LABS: Arterial Blood Gas PEEP 5 cmH2O; Arterial Blood Gas Pressure Support 0 cmH2O; Arterial Blood Gas Vent Mode ASV
[2019-10-29 05:26] LABS: Basophils Absolute Auto 0.2 K/mm3 (0.0-0.1); Basophils Percent Auto 1.1 % (0.2-1.2); Eosinophils Absolute Auto 0.2 K/mm3 (0-0.3); Hematocrit 27.4 % (42.0-52.0); Hemoglobin 8.5 g/dL (14.0-18.0); Immature Granulocyte Absolute 0.97 K/mm3 (0.00-0.031); Immature Granulocyte Percent A 5.4 % (0-0.5); Lymphocytes Absolute Auto 1.93 K/mm3 (0.9-3.2); Lymphocytes Percent Auto 10.8 % (18.3-44.2); Mean Corpuscular Hemoglobin 32.3 pg (26-34); Mean Corpuscular Volume 104.2 fl (80-100); Mean Platelet Volume 11.4 fl (7.4-10.4); Monocytes Absolute Auto 1.4 K/mm3 (0.1-0.6); Neutrophils Absolute Auto 13.1 K/mm3 (1.3-6.7); Neutrophils Percent Auto 73.7 % (45.5-73.1); Nucleated Red Blood Cells Perc 0.1 % (0.0-0.2); Platelet Count Result 294 k/mm3 (150-375); Red Blood Count 2.63 M/mm3 (4.6-6.20); Red Cell Distribution Width 22.7 % (11.5-14.5); White Blood Count 17.8 K/mm3 (4.5-10.0)
[2019-10-29 05:36] LABS: Alanine Aminotransferase 22 U/L (4-50); Albumin Level 1.8 g/dL (3.5-5.1); Alkaline Phosphatase 338 U/L (38-126); Anion Gap 7 mmol/L (8-16); Aspartate Amino Transferase 48 U/L (17-59); Bilirubin,Total 0.2 mg/dL (0.2-1.3); Blood Urea Nitrogen 33 mg/dL (9-20); Calcium 7.1 mg/dL (8.4-10.2); Carbon Dioxide 24 mmol/L (22-30); Chloride 102 mmol/L (98-107); Estimated CRCL calculation 20 ml/min; Estimated Glomerular Filt Rate 26; Glucose 206 mg/dL (75-110); Magnesium 1.7 mg/dL (1.6-2.3); Potassium 3.5 mmol/L (3.4-5.0); Sodium 133 mmol/L (137-145)
[2019-10-29] MEDS: metroNIDAZOLE 500 MG/ISO 100ML 500 MG/100 ML BAG 100 MG IVPB ×4 (05:49→23:24)
[2019-10-29 05:54] LABS: Platelet Estimate Adequate (Adequate)
[2019-10-29] MEDS: CENTRAL LINE FLUSH 10 ML IV PUSH ×3 (05:54→22:24)
[2019-10-29] MEDS: LEVOTHYROXINE SODIUM 75 MCG TABLET PO (05:54)
[2019-10-29 05:55] LABS: Macrocytosis 1+ (NORMAL); Microcytosis 1+ (NORMAL)
--- NOTE | 2019-10-29 07:30 | WPDINTPN ---
Progress Note: A&P Assessment and Plan (1) Severe sepsis: Code(s): A41.9 - Sepsis, unspecified organism; R65.20 - Severe sepsis without septic shock Status: Acute Assessment and Plan: and septic shock secondary to fungal peritonitis and PNA - OFF LEVOPHED since 2:00 a.m. on 10/16/2019 - peritoneal cultures growing Yeast - continue IV metronidazole and fluconazole per infectious disease - now off of antibacterials - appreciate infectious disease following the patient - leukocytosis gradually improving - CT scan of the abdomen and pelvis on 10/16 showed interval progression of patchy bilateral airspace disease, compatible pneumonia. Bilateral pleural effusions right greater than left moderate ascites which appears loculated the left upper abdomen, cannot exclude peritonitis, abdominal wall thickening suspicious for cystitis. peritoneal dialysis catheter present in the pelvis - 10/19/2019 peritoneal fluid Gram stain , no organism seen - 10/19/2019 peritoneal fluid culture, growing Linda albicans - 10/18/2019 blood cultures negative x2 - 10/21/2019 repeat peritoneal cultures and peritoneal catheter cultures growing Linda albicans (2) Peritonitis: Onset Date: ~10/2019 Code(s): K65.9 - Peritonitis, unspecified Status: Acute Assessment and Plan: Linda peritnoitis - status post removal of peritoneal dialysis catheter on 10/21/2019, Catheter and peritoneal fluid sent for culture - SILVA drains x2 draining minimal amount of serosanguineous fluid, surgery following the patient - appreciate infectious disease following the patient - continue IV fluconazole per infectious disease (3) Acute respiratory failure: Code(s): J96.00 - Acute respiratory failure, unspecified whether with hypoxia or hypercapnia Status: Acute Assessment and Plan: - patient on mechanical ventilation With ASV peep of 5, 30% FiO2 - decrease minute ventilation to 80% - will try pressure support ventilation after PEG tube placement today - chest x-ray any ABGs reviewed - currently off all sedation since 2:00 p.m. on 10/17/2019, - Opens his eyes but not tracking ir following commands - patient volume overloaded, continue dialysis - tried pressure support ventilation in the past but failed due to very high RSBI despite pressure support of 20 - ultrasound-guided thoracentesis 10/27/2019 - Only 150 mL fluid was removed - patient has been on ventilator for close to 2 weeks and is in no way close to extubation. ENT consulted for tracheostomy. planned for this Saturday (4) Aspiration pneumonia: Code(s): J69.0 - Pneumonitis due to inhalation of food and vomit Status: Acute Assessment and Plan: completed course of antibiotics (5) Encephalopathy: Code(s): G93.40 - Encephalopathy, unspecified Status: Acute Assessment and Plan: - gradually improving - continue to hold sedation - encephalopathy likely multifactorial related to metabolic /uremic encephalopathy, infectious encephalopathy, medication related - neurology has been consulted and appreciate their evaluation and recommendations - EEG was done on 10/20/2019 and discussed with Neurology, EEG had significant slowing, likely related to severe encephalopathy. No epileptiform discharges were seen - patient did have a CT scan of the brain on 10/18/2019: was negative for any acute intracranial pathology (6) Cardiorespiratory arrest: Code(s): I46.9 - Cardiac arrest, cause unspecified Status: Acute Assessment and Plan: PEA arrest likely due aspiration,ROSC after 1 round of epinephrine - post arrest pt was following commands and so did not require hypothermia protocol - trops elevated to 0.40 likely due to cardiac arrest and renal failure (7) Colitis: Code(s): K52.9 - Noninfective gastroenteritis and colitis, unspecified Status: Acute Assessment and Plan: R
[2019-10-29] MEDS: MAGNESIUM SULF 2 GM/WATER 50ML 2 GM/50 ML BAG IVPB (08:46)
--- NOTE | 2019-10-29 08:48 | WPDANESEPP ---
Anes - Eval Pre Procedure Procedure: Operation Date: 10/30/19 08:30 Proposed Procedures p Tracheostomy - Vamsi Alcala MD Date/Time: 10/29/19 08:48 Pre Op Diagnosis: Abdominal pain. Patient Data Age: 78 Gender: M Height: 1.63 m Weight: 71.8 kg Last Vital Signs Temp 36.8 C 10/29/19 04:00 Pulse 109 H 10/29/19 06:00 Resp 17 10/29/19 06:00 BP 111/81 10/29/19 06:00 Pulse Ox 100 10/29/19 06:00 Allergies Allergy/AdvReac Type Severity Reaction Status Date / Time amoxicillin Allergy Severe HIGH Verified 09/19/19 16:09 FEVER/LETHARGY Penicillins Allergy Severe HIGH Verified 09/19/19 16:09 FEVER/LETHARGY Home Medications Medication Instructions Recorded Confirmed Type B complex-vitamin C-folic acid 0.8 1 tablet PO DAILY 03/24/19 10/13/19 History mg tablet carvedilol 25 mg tablet 25 mg PO BID 03/24/19 10/13/19 History clopidogrel 75 mg tablet 75 mg PO DAILY 03/24/19 10/13/19 History fluticasone propionate 50 2 spray NASAL DAILY 03/24/19 10/13/19 History mcg/actuation nasal spray,suspension gabapentin 100 mg capsule 200 mg PO DAILY 03/24/19 10/13/19 History insulin regular human 100 unit/mL 1 sliding scale dose SUB-Q 03/24/19 10/13/19 History injection solution USEASDIRECTD torsemide 100 mg tablet 100 mg PO QAM 03/24/19 10/13/19 History acetaminophen 325 mg capsule 325 mg PO Q6H PRN 05/14/19 10/13/19 History cholecalciferol (vitamin D3) 50 50 mcg PO DAILY 05/14/19 10/13/19 History mcg (2,000 unit) capsule Probiotic 1 cap PO DAILY 08/24/19 10/13/19 History amlodipine 2.5 mg PO DAILY 08/24/19 10/13/19 History aspirin [Aspir-81] 81 mg PO DAILY 08/24/19 10/13/19 History magnesium oxide 400 mg PO DAILY 08/24/19 10/13/19 History potassium chloride 20 meq PO DAILY 08/24/19 10/13/19 History pravastatin 80 mg PO DAILY 09/19/19 10/13/19 History tamsulosin 0.4 mg PO QAM #30 cap 09/23/19 10/13/19 Rx levothyroxine 75 mcg PO DAILY 10/13/19 10/13/19 History loperamide [Imodium A-D] 1 mg PO DAILY 10/13/19 10/13/19 History Laboratory Tests 10/28/19 10/28/19 10/28/19 13:08 17:17 23:10 WBC RBC Hgb Hct MCV MCH MCHC RDW Plt Count MPV Immature Gran % (Auto) Neut % (Auto) Lymph % (Auto) [place] % (Auto) Eos % (Auto) Baso % (Auto) Lymph # (Auto) [place] # (Auto) Eos # (Auto) Baso # (Auto) Abs Immat Gran (auto) Absolute Neuts (auto) Absolute Nucleated RBC Nucleated RBC % Platelet Estimate Microcytosis Macrocytosis Puncture Site ABG pH ABG pCO2 ABG pO2 ABG PO2/FiO2 Ratio ABG HCO3 ABG O2 Saturation ABG O2 Content ABG Base Excess A-a Gradient Oxyhemoglobin Carboxyhemoglobin Methemoglobin Reduced Hemoglobin Total Hemoglobin O2 Delivery Device O2 Liters/Min Minute Volume Vent Rate Vent Mode FiO2 Tidal Volume PEEP Peak Inspir Pressure Pressure Support Sodium Potassium Chloride Carbon Dioxide Anion Gap BUN Creatinine Estim Creat Clear Calc Estimated GFR Glucose POC Capillary Glucose 121 mg/dl H mg/dl 118 mg/dl H mg/dl 163 mg/dl H mg/dl (65-105) (65-105) (65-105) Calcium Magnesium Total Bilirubin AST ALT Alkaline Phosphatase Total Protein Albumin
[2019-10-29] MEDS: PANTOPRAZOLE SODIUM IV 40 MG VIAL IV PUSH ×2 (08:49→20:35)
[2019-10-29] MEDS: FLUTICASONE PROPIONATE 0.05% NA SPR 16 GM BTL (*BKC) 2 SPRAY NASAL (08:49)
[2019-10-29] MEDS: SILVERGEL (ELTA) 45 ML 1 APPLIC TOPICAL (08:49)
[2019-10-29] MEDS: PRAVASTATIN SODIUM 20 MG TABLET 80 MG PO (08:49)
[2019-10-29] MEDS: FLUCONAZOLE 200 MG/NACL 100 ML 200 MG/100 ML BAG 100 MG IVPB (08:50)
[2019-10-29] MEDS: ACIDOPHILUS/BULGARICUS CHEWABLE TABLET 1 TABLET PO (08:50)
[2019-10-29] MEDS: ASPIRIN 81 MG ENTERIC TABLET PO (08:50)
[2019-10-29] MEDS: INSULIN GLARGINE (*BKC) 100 UNITS/ML 10 UNITS SUB-Q (08:54)
--- NOTE | 2019-10-29 10:31 | PM.PNGS ---
Progress Note: A&P Assessment and Plan (1) Peritoneal dialysis catheter infection: Code(s): T85.71XA - Infection and inflammatory reaction due to peritoneal dialysis catheter, initial encounter Status: Acute Assessment and Plan: PD catheter removed on October 20. SILVA drains show serosanguineous fluid. This is decreasing daily and once almost nothing is coming out will remove them. The right one had only about 8 cc out for the last 24 hours so will have his urse remove today and apply a gauze dressing. Peritoneal fluid cultures show yeast, Linda albicans. pt on Fluconazole. (2) Severe sepsis: Code(s): A41.9 - Sepsis, unspecified organism; R65.20 - Severe sepsis without septic shock Status: Acute Assessment and Plan: Fungal peritonitis, aspiration pneumonitis, on antifungal and anti-microbial therapy. Remains on mechanical ventilator. (3) Peritonitis: Onset Date: ~10/2019 Code(s): K65.9 - Peritonitis, unspecified Status: Acute Assessment and Plan: Should improve with peritoneal dialysis catheter removed. Continue antifungal treatment. (4) ESRD (end stage renal disease) on dialysis: Code(s): N18.6 - End stage renal disease; Z99.2 - Dependence on renal dialysis Status: Acute Assessment and Plan: Patient receiving Hemodialysis via right IJ tunneled central venous catheter. Additional Plan Will plan to follow output of the remining SILVA drain. (Now about 10 cc on the left side Q 24 hours). Most likely will leave the left one in until there is almost no output. Patient currently on Fluconazoe for an antifungal. PEG and trach being planned for the end of this week. Subjective Subjective Date/Time Seen: 10/29/19 10:31 Post Op day: POD #8 Patient reports: no new complaints Interval history: Patient's nurse reports that he had 3 loose stools during the day yesterday while she was caring for him. He is following some commands today. No changes in the ventilator overnight. Peg tube placement is planned for approximately 11:00 a.m. today. Review of Systems Review of Systems: ROS unobtainable: Yes unobtainable due to endotracheal tube and unobtainable due to medical condition Exam HENMT: Head: normal to inspection, normocephalic and atraumatic Ears: hearing grossly normal bilaterally and external ears normal General nose exam: Normal external nose present and no epistaxis Mouth: Yes Normal oral and palatal mucosa present and Yes moist mucous membranes Eyes: General: appearance normal, both eyes and all related structures Sclera: sclerae normal EOM: EOMs intact bilaterally Neck: Neck: normal visual inspection, full ROM, no JVD and other ( right IJ tunneled dialysis catheter dry and intact.) Lymphatic: lymphadenopathy not noted Other: Incisions on right neck clean and dry. Triple lumen central line on the left without signs of purulent exudate. Resp: Effort & Inspection: able to speak in complete sentences and no respiratory distress Auscultation: rhonchi right upper and diminished lung sounds (at bases) bilateral Other: Patient intubated and ventilated. Upper anterior lung findings fairly clear to auscultation bilaterally today. Cardio: Rate: regular rate Rhythm: regular rhythm (appears to be in sinus rhythm with HR 62 on surveillance system monitor) and abnormal rhythm irregularly irregular Heart sounds: Murmur heart sound present GI: Inspection: normal to inspection, incision ( Serosanguineous fluid from each SILVA drain, dressings dry.), scar and no visible herniation GI Palp: Yes Soft to palpation Auscultation: normal bowel sounds and Hypoactive bowel sounds present Rectal Exam: deferred Other: Incisions on the abdomen healing well with bilateral lower abdominal SILVA drains. The right side has some drainage along it and will need a dressing change. Patient's nurse reports that the exit site from the previous PD catheter is s
--- NOTE | 2019-10-29 11:11 | PCDIET ---
ICU Rounding Note: Patient currently NPO for PEG, as was not placed yesterday, as planned. Recommended increasing tube feeding goal to 40mL/hr Nepro once resumed; agreeable. Last recorded weight is 71.8kg which is down from last review. Patient had 1L UF on 10/28/19. Bowel Motility: BM x 2 on 10/28/19. Labs Reviewed: Hgb (8.5), Hct (27.4), Glu (206), BUN (33), Cr (2.4), Na (133), Ade Ca (8.86), Alb (1.8) Meds Noted: Magnesium Sulfate, Protonix, Miralax, Albumin, Dulcolax, Fentanyl, Diflucan, Novolog, Lantus, Lactinex, Synthroid, Flagyl Additional Notes: Skin tears to left pascual, medial buttock and right arm. Ulcers to bilateral feet and coccyx. RN to pull one of two SILVA drains today. Following daily in ICU rounds. Assessing/reassessing every Saturday/Saturday.
[2019-10-29] MEDS: MIDAZOLAM HCL 2 MG/2 ML VIAL IV PUSH (11:50)
--- NOTE | 2019-10-29 12:01 | PM.OP ---
Procedure Note - Brief Procedure Note - Brief Date of procedure: 10/29/19 Pre-op diagnosis: Abdominal pain. Nutritional support. Ventilator dependent. Procedure performed: EGD. Attempted PEG tube placement. Description of procedure: Informed consent is obtained from the patient. The risks benefits alternatives and indications are discussed agree 2 prior to the procedure the risks include but are not limited to adverse reaction to medications including allergies. The risk of bleeding and possible need for transfusion. The risk of perforation possible need for surgery. The risks for missed pathology. Patient's family agreed to proceed patient given no additional sedation. She is sedated on the ventilator. Description of procedure [employer] video endoscope passed through the esophagus which appears normal. Squamocolumnar junction intact at 40cm. Stomach is hands entirety including U-turn is normal. Duodenum reveals normal bulb sweep 2nd portion. I am unable to identify the light transilluminating through the abdominal wall. No discrete area of finger indentation is identified within gastric body. Therefore unable to safely identify a area of transposition of stomach against abdominal wall. I am unable to place PEG tube at this time. Impression normal EGD. Unable to place a fully paced place PEG tube. I suspected may be related to loculated ascites. Anesthesia: none Surgeon: Faisal Schroeder MD Findings: Normal EGD unable to place PEG tube. plan is to ask surgery for possible surgically placed PEG tube.
--- NOTE | 2019-10-29 12:14 | PCPTNOTE ---
The patient treatment was not able to be completed on due to patient having bed side procedure. Will plan to continue treatment per plan of care.
--- NOTE | 2019-10-29 12:20 | SUR.OPER ---
VS and medications given and documented by ICU, RN
[2019-10-29 12:47] LABS: Glucose Point of Care 171 (65-105)
--- NOTE | 2019-10-29 13:02 | OP_ITS ---
DATE OF PROCEDURE: 10/29/2019 PROCEDURE: Esophagogastroduodenoscopy with attempted PEG placement. PREOPERATIVE DIAGNOSES: Nutritional support, ventilator-dependent patient. POSTOPERATIVE DIAGNOSIS: Unremarkable esophagogastroduodenoscopy, unable to place PEG tube. INDICATIONS FOR PROCEDURE: Informed consent for the procedure was obtained from patient's power of workers compensation attorney. The risks, benefits, alternatives, and indications were discussed and agreed to. The risks include, but were not limited to, the risk of bleeding and possible need for transfusion, the risk of perforation, possible need for surgery, and the risk for missed pathology. Family agreed to proceed. The patient was given no additional sedation, patient was already sedated on the ventilator. DESCRIPTION OF PROCEDURE: With the [employer] video endoscope, following were the findings: The endoscope was passed through the esophagus, which appeared normal, squamocolumnar junction intact at 40 cm. Stomach seen in its entirety including U-turn was normal. Duodenum revealed normal bulb and sweep to 2nd portion. During the procedure, I was unable to transilluminate light safely, unable to identify finger indentation with the body of the stomach. IMPRESSION: Normal esophagogastroduodenoscopy, unable to place PEG tube. PLAN: Plan is to have Surgery to consult for possible surgically placed PEG tube. Suspect the patient may have ascites or loculated ascites inhibiting placement of PEG tube safely. Antony I MT: Cliff
--- NOTE | 2019-10-29 15:03 | PCOTNOTE ---
Patient demonstrates improved responsiveness and participation during OT treatment. Patient will benefit from increased frequency from 2-3 x/wk to 5-7x/wk.
--- NOTE | 2019-10-29 16:09 | PM.IMHP ---
H&P: HPI History of Present Illness Date/Time: 10/29/19 16:09 Chief complaint: Abdominal pain. Narrative: Ángel Fung is a 78 year old male with respiratory insufficiency. Previously consult for tracheostomy. The patient has not met criteria for extubation. Per nursing and OR consent has been obtained from family. Review of Systems Review of Systems: ROS unobtainable: Yes unobtainable due to endotracheal tube PMFSH Past Medical History Medical History Anemia of chronic disease Arthritis Back pain Bladder tumor Resected 09/15/2019 CKD stage 5 due to type 2 diabetes mellitus (Unknown) Coronary artery disease (Unknown) With history of stent in 2008 and 2014 Diabetic peripheral neuropathy End-stage renal disease on peritoneal dialysis Managed by Dr. Lauren Glaucoma Hearing loss With bilateral hearing aids Hyperlipidemia Hypertension (Unknown) Hypothyroidism (Unknown) Hypothyroidism Insulin dependent type 2 diabetes mellitus Myocardial infarct Osteomyelitis (~05/2015) Peripheral arterial disease History of multiple bilateral lower extremity stents. Peritonitis (acute) generalized Type 2 diabetes mellitus (Unknown) Urethral stricture Status post dilatation 09/15/2019 Surgical History Surgical History Amputation of fifth toe of right foot (~05/2015) History of colonoscopy with polypectomy Reportedly had a Colonoscopy in 2019 due to his chronic diarrhea and had findings of a cancerous polyp that was completely removed during the colonoscopy. This was performed in [place]. History of heart artery stent (~10/2014) 2008 and 2014 History of surgical removal of skin lesion Top of head and face. Basal cell carcinoma History of transurethral destruction of bladder lesion 09/15/2019 History of vascular surgery Bilateral lower extremity stents. Total of 4 stents in each leg Status post cataract extraction Status post cystourethroscopy with dilation of urethral stricture 09/15/2019 Family History Family History Mother , Age 87 ME Heart disease Diabetes mellitus Cataract Father , Age 69 from Cancer Heart disease Lung cancer Sibling Diabetes mellitus Social History Social History Social History: The patient is and lives with his in [place]. They have 2 children. He served in [employer] for 3 years in [place] and is retired from factory work. He smoked up to 2 packs of cigarettes per day for about 17 years and quit in the . No alcohol or illicit substance use. He designates his , Dena, as his surrogate decision maker. Smoking packs per day: 2 Smoking cigarettes per day: 40.0 Years smoked: 17 Smoking pack-years: 34.00 Smoking status: Former smoker Tobacco type: cigarettes Alcohol intake: never Substance use: never Gender identity (if verbalized by the patient): Male Spiritual care concerns: No Meds Home Medications and Allergies Home Medications Medication Instructions Recorded Confirmed Type B complex-vitamin C-folic acid 0.8 1 tablet PO DAILY 03/24/19 10/13/19 History mg tablet carvedilol 25 mg tablet 25 mg PO BID 03/24/19 10/13/19 History clopidogrel 75 mg tablet 75 mg PO DAILY 03/24/19 10/13/19 History fluticasone propionate 50 2 spray NASAL DAILY 03/24/19 10/13/19 History mcg/actuation nasal spray,suspension gabapentin 100 mg capsule 200 mg PO DAILY 03/24/19 10/13/19 History insulin regular human 100 unit/mL 1 sliding scale dose SUB-Q 03/24/19 10/13/19 History injection solution USEASDIRECTD torsemide 100 mg tablet 100 mg PO QAM 03/24/19 10/13/19 History acetaminophen 325 mg capsule 325 mg PO Q6H PRN 05/14/19 10/13/19 History cholecalciferol (vitamin D3) 50 50 mcg PO DAILY
[2019-10-29 17:10] LABS: Glucose Point of Care 153 (65-105)
--- NOTE | 2019-10-29 18:33 | PM.PNNEP ---
Progress Note: A&P Assessment and Plan (1) ESRD (end stage renal disease) on dialysis: Code(s): N18.6 - End stage renal disease; Z99.2 - Dependence on renal dialysis Status: Acute Assessment and Plan: converted to hemodialysis given #2 HD tomorrow and continue M/W/F schedule for now follow electrolytes, volume status, and clearance (2) Peritonitis (acute) generalized: Code(s): K65.0 - Generalized (acute) peritonitis Status: Acute Assessment and Plan: cultures growing yeast s/p PD catheter removal and washout drains in place antibiotics/antifungals as outlined by Infectious Disease continue supportive therapy (3) Hyponatremia: Onset Date: Unknown Code(s): E87.1 - Hypo-osmolality and hyponatremia Status: Acute Assessment and Plan: partly due to ESRD slow improvent with hemodialysis follow trend (4) Cardiorespiratory arrest: Code(s): I46.9 - Cardiac arrest, cause unspecified Status: Acute Assessment and Plan: presumably precipitated by aspiration remains on mechanical ventilation (5) Aspiration pneumonia: Code(s): J69.0 - Pneumonitis due to inhalation of food and vomit Status: Acute Assessment and Plan: on antibiotics intubated and on mechanical ventilation need for tracheostomy -- plan for placement tomorrow (6) Encephalopathy: Code(s): G93.40 - Encephalopathy, unspecified Status: Acute Assessment and Plan: some improvement noted EEG results noted continue supportive care Will continue to follow. Subjective Date/time seen: 10/29/19 15:33 Patient appears about the same - remains on mechanical ventilation but in no apparent distress; attempted PEG tube placement today but this was unsuccessful; plan for tracheostomy tomorrow. Exam Narrative: Exam Narrative: General: WD/WN male - intubated Heart: normal S1 and S2; no rub Lungs: crackles at bases and diminished breath sonds Abdomen: soft, nontender, nondistended, positive bowel sounds Extremities: no cyanosis or clubbing; edema in upper/lower extremities as well as abdominal wall Skin: warm and intact Objective Data Vital Signs Vital Signs: Vital Signs Temp Pulse Resp BP Pulse Ox 10/29/19 18:00 99 20 104/57 L 100 10/29/19 16:42 97 98 10/29/19 16:00 36.8 C 99 20 103/57 L 99 10/29/19 14:15 104 H 100 10/29/19 14:00 96 20 90/48 L 100 10/29/19 12:00 36.4 C L 101 H 20 82/52 L 100 10/29/19 11:16 36.8 C 99 20 83/49 L 97 10/29/19 11:01 97 98 10/29/19 10:00 98 22 H 95/57 L 96 10/29/19 08:42 105 H 98 10/29/19 08:00 36.6 C 108 H 18 105/54 L 99 10/29/19 06:00 109 H 17 111/81 100 10/29/19 04:17 116 H 100 10/29/19 04:00 36.8 C 120 H 213 H 102/53 L 100 10/29/19 02:54 115 H 100 10/29/19 02:00 120 H 19 138/62 100 10/29/19 00:00 37.3 C 117 H 21 H 127/85 100 10/28/19 23:51 122 H 100 10/28/19 22:00 121 H 24 H 133/69 100 10/28/19 20:11 118 H 100 10/28/19 20:00 36.9 C 118 H 23 H 104/59 L 99 Intake/Output Intake/Output: Intake & Output 10/26/19 10/27/19 10/28/19 10/29/19 23:59 23:59 23:59 23:59 Intake Total 2436 4085 230 9219 Output Total 2150 205 1051 28 Balance 286 893 -179 1218 Meds/Results Medications: Active Medications Generic Name Dose Route Start Last Admin Trade Name Freq PRN Reason Stop Dose Admin Albuterol 2.5 mg 10/29/19 11:48 Albuterol Sulf Neb 2.5mg/0.5ml INHALATION Q4HRT PRN Wheezing or high peak pressure Aspirin 81 mg 10/28/19 12:00 10/29/19 08:50 Aspirin Ec PO 81 mg QAM JOHNATHAN Administration Bisacodyl 10 mg 10/14/19 17:03 10/16/19 17:51 Dulcolax Suppository RECTAL 10 mg QAM PRN Administration Constipation Dextrose 12.5 gm 10/16/19 20:09 08
[2019-10-29 19:34] LABS: Glucose Pleural Fluid 171 mg/dL; LDH Pleural Fluid 42 U/L; Total Protein Pleural Fluid <3.0 g/dL
[2019-10-29] MEDS: HEPARIN SODIUM 5,000 UNITS/ML VIAL 5000 UNITS SUB-Q (22:24)
[2019-10-29 23:22] LABS: Glucose Point of Care 231 (65-105)
[2019-10-29] MEDS: INSULIN ASPART (*BKC) 100 UNITS/ML SUB-Q (23:22)
[2019-10-30] VITALS (48 sets, daily range): BP systolic 79–177; BP diastolic 49–95; PULSE 74–108; RESP 17–31; TEMP 35.7–37.1; O2SAT 99–100
[2019-10-30 03:30] LABS: Hematocrit 27.3 % (42.0-52.0); Hemoglobin 8.5 g/dL (14.0-18.0); Mean Corpuscular HGB Conc 31.1 g/dl (32-36); Mean Corpuscular Hemoglobin 32.8 pg (26-34); Mean Corpuscular Volume 105.4 fl (80-100); Mean Platelet Volume 11.3 fl (7.4-10.4); Platelet Count Result 330 k/mm3 (150-375); Red Blood Count 2.59 M/mm3 (4.6-6.20); Red Cell Distribution Width 22.6 % (11.5-14.5); White Blood Count 16.6 K/mm3 (4.5-10.0)
[2019-10-30 03:41] LABS: INR 2.1; Prothrombin Time 23.1 Seconds (11.1-14.7)
[2019-10-30 03:44] LABS: Alanine Aminotransferase 20 U/L (4-50); Albumin Level 1.8 g/dL (3.5-5.1); Alkaline Phosphatase 357 U/L (38-126); Anion Gap 7 mmol/L (8-16); Aspartate Amino Transferase 50 U/L (17-59); Bilirubin,Total 0.3 mg/dL (0.2-1.3); Blood Urea Nitrogen 40 mg/dL (9-20); Calcium 6.9 mg/dL (8.4-10.2); Carbon Dioxide 24 mmol/L (22-30); Chloride 103 mmol/L (98-107); Estimated CRCL calculation 15 ml/min; Estimated Glomerular Filt Rate 20; Glucose 160 mg/dL (75-110); Magnesium 2.2 mg/dL (1.6-2.3); Phosphorus 4.5 mg/dL (2.5-4.5); Potassium 3.3 mmol/L (3.4-5.0); Sodium 134 mmol/L (137-145)
[2019-10-30] MEDS: KCL 20 MEQ/SW 100 ML 100 ML 50 MEQ IVPB (04:46)
[2019-10-30] MEDS: SODIUM CHLORIDE 0.9% IV 250 ML 30 ML IV CONT (05:00)
[2019-10-30 05:17] LABS: Glucose Point of Care 136 (65-105)
[2019-10-30] MEDS: CENTRAL LINE FLUSH 10 ML IV PUSH ×3 (05:41→22:43)
[2019-10-30 06:05] LABS: Alveolar/Arterial O2 Gradient 74.7 mmHg; Carboxyhemoglobin 0.2 % THb (0-2.0); Fractional Inspired Oxygen 30 %; HCO3 ABG 19.7 mEq/l (22.0-26.0); Methemoglobin ABG 0.5 %THb (0-1.5); Oxygen Content ABG 17.1 %vol (16.0-22.0); Oxygen Saturation ABG 98.2 % (95.0-100.0); Oxyhemoglobin 96.7 % THb (90.0-100.0); PCO2 ABG 28.4 mmHg (35.0-45.0); PO2 ABG 105.8 mmHg (80.0-100.0); PO2 FiO2 Ratio Arterial Blood 3.53 %; Reduced Hemoglobin 2.6 %THb (0-5.0); Total Hemoglobin 12.5 g/dL (12.0-18.0); pH ABG 7.458 (7.350-7.450)
[2019-10-30 06:06] LABS: Arterial Blood Gas PEEP 5 cmH2O; Arterial Blood Gas Tidal Volume 320 ml; Arterial Blood Gas Vent Mode CMV; Arterial Blood Gas Ventilator rate 20 /MIN; Device VENTILATOR; Site Drawn LEFT BRACHIAL
[2019-10-30] MEDS: metroNIDAZOLE 500 MG/ISO 100ML 500 MG/100 ML BAG 100 MG IVPB ×4 (06:47→23:30)
--- NOTE | 2019-10-30 07:16 | WPDHPUPDATE1 ---
History and Physical Update Update Date/Time: 10/30/19 07:16 History and Physical has been reviewed, including an updated exam of the patient. There are NO changes in the patient's condition. Risks, benefits, and alternatives have been discussed and questions answered. Patient agrees to proceed with procedure.
--- NOTE | 2019-10-30 07:46 | WPDANESEFPP ---
Anes - Eval Final PreProcedure Day of Procedure 10/30/19 07:46 Patient weight: overweight Heart: regular rate and rhythm Lungs: other (on ventilator) Last oral intake: >/= 8 hours ASA classification: IV Emergent: no Anesthetic plan: proceed Anesthesia type and monitoring: general ETT and standard monitoring Informed Consent: The patient's anesthetic plan and its attendant risks and benefits were discussed with the patient/family/POA. Questions were solicited and answers provided to the satisfaction of the patient/family/POA.
--- NOTE | 2019-10-30 08:00 | WPDINTPN ---
Progress Note: A&P Assessment and Plan (1) Severe sepsis: Code(s): A41.9 - Sepsis, unspecified organism; R65.20 - Severe sepsis without septic shock Status: Acute Assessment and Plan: and septic shock secondary to fungal peritonitis and PNA - OFF LEVOPHED since 2:00 a.m. on 10/16/2019 - peritoneal cultures growing Yeast - continue IV metronidazole and fluconazole per infectious disease - now off of antibacterials - leukocytosis gradually improving - CT scan of the abdomen and pelvis on 10/16 showed interval progression of patchy bilateral airspace disease, compatible pneumonia. Bilateral pleural effusions right greater than left moderate ascites which appears loculated the left upper abdomen, cannot exclude peritonitis, abdominal wall thickening suspicious for cystitis. peritoneal dialysis catheter present in the pelvis - 10/19/2019 peritoneal fluid Gram stain , no organism seen - 10/19/2019 peritoneal fluid culture, growing Linda albicans - 10/18/2019 blood cultures negative x2 - 10/21/2019 repeat peritoneal cultures and peritoneal catheter cultures growing Linda albicans (2) Peritonitis: Onset Date: ~10/2019 Code(s): K65.9 - Peritonitis, unspecified Status: Acute Assessment and Plan: Linda peritnoitis - status post removal of peritoneal dialysis catheter on 10/21/2019, Catheter and peritoneal fluid sent for culture - SILVA drains x1 draining minimal amount of serosanguineous fluid, surgery following the patient - continue IV fluconazole per infectious disease (3) Acute respiratory failure: Code(s): J96.00 - Acute respiratory failure, unspecified whether with hypoxia or hypercapnia Status: Acute Assessment and Plan: - patient on mechanical ventilation patient was on ASV peep of 5, 30% FiO2 but was switched to CMV yesterday when he was given sedation for PEG tube placement. I left him on CMV since yesterday as he is going for surgery today decrease rate to 18 and tidal volume to 300 mL - patient is going to OR for tracheostomy - decrease minute ventilation to 80% - will try pressure support ventilation after PEG tube placement and tracheostomy today (4) Aspiration pneumonia: Code(s): J69.0 - Pneumonitis due to inhalation of food and vomit Status: Acute Assessment and Plan: completed course of antibiotics (5) Encephalopathy: Code(s): G93.40 - Encephalopathy, unspecified Status: Acute Assessment and Plan: - gradually improving - continue to hold sedation - encephalopathy likely multifactorial related to metabolic /uremic encephalopathy, infectious encephalopathy, medication related - neurology has been consulted and appreciate their evaluation and recommendations - EEG was done on 10/20/2019 and discussed with Neurology, EEG had significant slowing, likely related to severe encephalopathy. No epileptiform discharges were seen - patient did have a CT scan of the brain on 10/18/2019: was negative for any acute intracranial pathology (6) Cardiorespiratory arrest: Code(s): I46.9 - Cardiac arrest, cause unspecified Status: Acute Assessment and Plan: PEA arrest likely due aspiration,ROSC after 1 round of epinephrine - post arrest pt was following commands and so did not require hypothermia protocol - trops elevated to 0.40 likely due to cardiac arrest and renal failure (7) Colitis: Code(s): K52.9 - Noninfective gastroenteritis and colitis, unspecified Status: Acute Assessment and Plan: RESOLVED - patient presented with abdominal pain, nausea, vomiting and diarrhea, CT scan of the abdomen and pelvis on 10/13/2019 showed sigmoid colon wall thickening is consistent with colitis. Repeat CT abdomen pelvis on 10/17/2019 did not show any evidence of mesenteric ischemia. He does have ascites and 1 pocket of ascites seems to be loculated, possible peritonitis, b
[2019-10-30] MEDS: LIDO 1%/EPINEPHRINE 1:100,000 20 ML VIAL 6 ML INFILTRATE (09:01)
--- NOTE | 2019-10-30 09:21 | WPDHPUPDATE1 ---
History and Physical Update Update Date/Time: 10/30/19 09:21 History and Physical has been reviewed, including an updated exam of the patient. There are changes in the patient's condition. patient has been gradually in with his mental status. Now opening his eyes to command and following some commands. Also his INR was 2.1 this morning any received 1 unit of fresh frozen plasma in preparation for the surgeries that we are planning today. I did discuss the risks benefits possible complications of this procedure with his yesterday. These included bleeding infection difficulty getting to the stomach to put the tube in and possible of dislodgement of the tube after the surgery. Risks, benefits, and alternatives of an open G-tube placement have been discussed and questions answered. Patient agrees to proceed with procedure.
[2019-10-30] MEDS: NEOMYCIN/POLYMYXIN/BACITRACIN OINTMENT 15 GM TUBE 1 APPLIC TOPICAL (09:48)
[2019-10-30] MEDS: CLINDAMYCIN 900 MG/NS 50 ML 900 MG/50 ML PIGGYBACK 50 MG IVPB (09:55)
--- NOTE | 2019-10-30 10:32 | P.OP_ITS ---
Procedure Note - Detailed Date of procedure: 10/30/19 Pre-op diagnosis: Abdominal pain. 1. Respiratory insufficiency Post-op diagnosis: same Procedure performed: 1. Tracheostomy Description of procedure: patient was correctly identified and consent was verified in the patient's ICU room. The patient was then brought to the operating room and a time-out was performed. General anesthesia was deepened and the patient was prepped and draped for the aforementioned procedure. 6 cc 1% lidocaine with 1 100,000 parts epinephrine was injected deep to the pre drawn surgical incision with approximately 3 cm in length horizontally located approximately 1 fingerbreadth below the cricoid cartilage. Dissection was carried deep using a combination of 15 blade Bovie electric cautery bipolar and mosquito dissecting hemostat. The laryngeal framework and trachea were identified and a cricoid hook was placed deep to the cricoid cartilage elevating the laryngeal framework and trachea. Anesthesia then deflated the balloon and inserted the ET tube 1 cm deeper 15 blade and curved Villegas scissors were utilized to perform tracheotomy between tracheal rings 1 and 2 the trachea was deep. A trach advertising specialist was utilized to open the tracheotomy anesthesia removed endotracheal tube until it was no longer visible within the tracheotomy. A 8 cuffed Shiley trach was then placed and secured S anesthesia connected their cir cuit confirming end-tidal CO2. Padding was placed into the tracheal face plate and 4 corner 3 0 silk sutures were placed securing the trach. Velcro trach ties were also placed. Care of the patient was turned over anesthesia and this marked the end of the procedure. Anesthesia: GLMA Surgeon: Vamsi Alcala MD Estimated blood loss (mL): 10 Drains: No Packing: No Pathology: none sent Complications: Other complications ( Small skin tear to the right inferior of trach face plate) Condition: stable Disposition: ICU Findings: deep trachea necessitating in T-shape incision and placement of tracheotomy between tracheal rings 1 and 2
--- NOTE | 2019-10-30 11:17 | PCPTNOTE ---
Attempted to see patient for Physical Therapy this AM. Patient just returned from having a procedure performed. RN stated to hold Physical Therapy for today. RN stated that patient should be able to do Physical Therapy tomorrow.
--- NOTE | 2019-10-30 11:31 | PM.PROC ---
Procedure Note - Detailed Date of procedure: 10/30/19 Pre-op diagnosis: Abdominal pain. Altered mental status Malnutrition with inability to eat Recent fungal peritonitis secondary to peritoneal dialysis catheter Post-op diagnosis: same Procedure performed: laparotomy with placement of open G-tube. Description of procedure: After the patient had had his tracheostomy tube placed by Dr. Hilario I entered the room. All drapes were removed and the patient was re-prepped and draped. We prepped the entire abdomen from nipples to groin. Dressings were removed from the left lower quadrant SILVA drain and the old drain site in the right lower quadrant. The entire area was prepped with chlorhexidine and redraped for a midline incision. Time-out was performed with the team confirming site of surgery being the abdomen. Following this vertical midline incision was made starting approximately 4 cm below the xiphisternum and extending toward the umbilicus. An approximate 6-8 cm incision was made and we continued this down through the subcutaneous tissues to the midline fascia. The midline fascia was incised with Bovie cautery we carefully split the fascia and identified the peritoneum. A small opening was made in the peritoneum after lifting the fascia and this was extended the length the incision. There were light adhesions between the underlying omentum, stomach, and liver and a finger was used to carefully take down these adhesions with blunt dissection. This exposed the left lobe of the liver, little bit of the stomach, and some of the omentum inferior to the stomach. I carefully widened our view toward the left side. I the anterior surface of the stomach and the lesser curvature of the stomach from the underside of the left lobe of the liver. This mobilized the stomach enough to be able to place a G-tube in the anterior surface of the stomach just underneath the costal margin on the left. A site was selected approximately 3 cm off the midline for of placement of the G-tube. Local anesthetic was instilled and a small transverse incision was made and then a tonsil forceps was placed through the entire abdominal wall in stretched. I grabbed this with another Tonsil and brought it out and then the G-tube itself being a 16 [place] gastrostomy tube with a 20 cc balloon on it was grasped and pulled into the abdominal cavity. The silastic ring was pulled back toward the Y connector on the tube. Once this was in place I then placed 2 concentric sutures in a pursestring manner of 2-0 silk on the anterior surface of the stomach approximately 5-6 cm back from the apparent level of the pylorus. Following this an opening was made in the center of these concentric purse-string sutures and a tonsil was placed into the stomach this was dilated we suctioned away some the gastric contents and I carefully inserted the other end of the G-tube and the balloon was insufflated and then pulled back to pull the G-tube up against the anterior surface of the stomach. This appeared to show that the tube was in the stomach. The 2 suture sutures were then tied around the G-tube and having left the needle on these. The 1st one was placed into the peritoneum laterally and the 2nd one to the peritoneum medially and these were tied to hold the anterior wall or anterior surface of the stomach up to the underside of the anterior abdominal wall. All bleeding seem to have stopped nicely after tieing these. We irrigated with 10 cc of saline and then confirming that the balloon was up against the underside of the stomach the silastic ring was pulled down and the 2 cm arya could be seen within the silastic ring and the upper end of the silastic ring is at about the 3 cm arya on the G-tube. Following this closure was begun. Closure was accomplished with a running #1 PDS started at both ends of the fascial incision and run toward the center. These were tied together after pulling them up tight.
--- NOTE | 2019-10-30 12:09 | WPDINFPN2 ---
Progress Note: A&P Assessment and Plan (1) Leukocytosis: Onset Date: ~09/2019 Code(s): D72.829 - Elevated white blood cell count, unspecified Status: Acute Assessment and Plan: 1. Leukocytosis, due to fungal peritonitis from his catheter. WBC declining slowly, though still high. 2. Colitis by CT 3. CRF on HD now 4. PCN intolerance 5. Pleural effusion, not infected by Gram stain/culture so far REC Fluconazole # 9 (antifungal #10). POD # 9 cath removal. Following WBC over time. Will need antifungal into next week. Updated at bedside Subjective Date/time seen: 10/30/19 12:09 Interval history: sedated, on vent, just back from trach Exam Narrative: Exam Narrative: afebrile Const: General: no acute distress Resp: Effort & Inspection: normal respiratory effort Auscultation: clear to auscultation bilaterally Cardio: Rate: regular rate Rhythm: regular rhythm GI: Inspection: non-distended GI Palp: Yes Soft to palpation Other: New g tube Objective Data Vital Signs Vital Signs: Vital Signs - 24 hr 10/29/19 14:00 10/29/19 14:15 10/29/19 16:00 Temperature 36.8 C Pulse Rate 96 104 H 99 Respiratory Rate 20 20 Blood Pressure 90/48 L 103/57 L Pulse Oximetry 100 100 99 10/29/19 16:42 10/29/19 18:00 10/29/19 20:00 Temperature 36.9 C Pulse Rate 97 99 105 H Respiratory Rate 20 19 Blood Pressure 104/57 L 105/58 L Pulse Oximetry 98 100 100 10/29/19 20:02 10/29/19 22:00 10/29/19 23:10 Temperature Pulse Rate 108 H 70 102 H Respiratory Rate 18 Blood Pressure 111/63 Pulse Oximetry 99 99 99 10/30/19 00:00 10/30/19 02:00 10/30/19 03:20 Temperature 36.6 C Pulse Rate 105 H 88 88 Respiratory Rate 22 H 21 H Blood Pressure 112/51 L 100/64 Pulse Oximetry 100 100 100 10/30/19 04:00 10/30/19 04:22 10/30/19 05:24 Temperature 36.6 C 37.1 C Pulse Rate 94 88 105 H Respiratory Rate 21 H 28 H Blood Pressure 109/53 L 99/52 L Pulse Oximetry 100 100 100 10/30/19 05:41 10/30/19 06:00 10/30/19 06:41 Temperature 36.8 C 36.9 C Pulse Rate 97 108 H 100 Respiratory Rate 26 H 19 24 H Blood Pressure 101/66 134/59 L 101/51 L Pulse Oximetry 100 99 100 10/30/19 07:04 10/30/19 07:57 10/30/19 08:00 Temperature 36.9 C 36.5 C Pulse Rate 97 108 H 103 H Respiratory Rate 21 H 24 H Blood Pressure 111/69 107/57 L Pulse Oximetry 100 100 10/30/19 08:09 Temperature Pulse Rate 98 Respiratory Rate Blood Pressure Pulse Oximetry 100 Intake/Output Intake/Output: Intake & Output 10/27/19 10/28/19 10/29/19 10/30/19 23:59 23:59 23:59 23:59 Intake Total 9207 156 5020 477 Output Total 205 1051 28 15 Balance 893 -179 1318 462 Meds/Results Medications: Active Medications Generic Name Dose Route Start Last Admin Trade Name Freq PRN Reason Stop Dose Admin Albuterol 2.5 mg 10/29/19 11:48 Albuterol Sulf Neb 2.5mg/0.5ml INHALATION Q4HRT PRN Wheezing or high peak pressure Aspirin 81 mg 10/28/19 12:00 10/29/19 08:50 Aspirin Ec PO 81 mg QAM JOHNATHAN Administration Bisacodyl 10 mg 10/14/19 17:03 10/16/19 17:51 Dulcolax Suppository RECTAL 10 mg QAM PRN Administration Constipation Dextrose 12.5 gm 10/16/19 20:09 10/23/19 08:56 Dextrose 50% Syringe IV PUSH 12.5 gm PRN PRN Administration Hypoglycemia Protocol Epoetin Avni-epbx 10,000 units 10/30/19 19:51 Retacrit IV PUSH 10/30/19 19:52 ONCE ONE Fentanyl Citrate 25 mcg 10/26/19 07:35 10/26/19 18:30 Sublimaze IV PUSH 25 mcg Q1H PRN Administration Pain Rated 7-10 Fluticasone Propionate 2 spray 10/16/19 09:00 10/29/19 08:49 Flonase 0.05% Nasal [place] NASAL 2 spray DAILY JOHNATHAN Administration Glucagon 1 mg 10/16/19 20:09 Glucagon For Inj IM PRN PRN Hypoglycemia Protocol Glucose 15 gm 10/16/19 20:09 Glutose 15 PO PRN PRN Hypoglycemia Protocol Heparin Sodium (Porcine) 5,000 u
--- NOTE | 2019-10-30 12:32 | PCDIET ---
Nutrition Follow-Up Complete: Nutrition Diagnosis: Inadequate oral intake related to oral intubation as evidenced by NPO status. Nutrition Goal: Patient to meet estimated nutritional needs. Goal not met due to tube feeding holds for procedures. Plan for PEG/trach. Tube feedings to resume once approved by GI. Last recorded weight is 73.7 kg which is increased from last review. Bowel Motility: BM x 2 on 10/28/19. Labs Reviewed: Hgb (8.5), Hct (27.3), Glu (160), BUN (40), Cr (3.1), Na (134), K (3.3), Alb (1.8), Ade Ca (8.66) Meds Noted: Albumin, Albuterol, Dulcolax, Retacrit, Protonix, Miralax, Fentanyl, Diflucan, Novolog, Lantus, Atrovent, Lactinex, Synthroid, KCl Additional Notes: No change in skin reported. Will continue to monitor with same goal. Nutrition Monitoring and Evaluation: Follow up every Saturday/Saturday. Follow daily in ICU rounds.
[2019-10-30 12:48] LABS: Glucose Point of Care 116 (65-105)
[2019-10-30 12:52] LABS: Hematocrit 27.2 % (42.0-52.0); Hemoglobin 8.4 g/dL (14.0-18.0)
--- NOTE | 2019-10-30 13:03 | PCOTNOTE ---
The patient treatment was not able to be completed on 10/29 due to patient having a procedure earlier in the day where general anesthesia was used, and pt is unable to arouse at this time. RN advised that pt should be able to participate in therapy on 10/30. Will plan to continue treatment per plan of care.
[2019-10-30 13:13] LABS: Prothrombin Time 22.3 Seconds (11.1-14.7)
[2019-10-30 13:14] LABS: Partial Thromboplastin Time 41.1 SECONDS (22.3-36.8)
[2019-10-30] MEDS: FLUCONAZOLE 200 MG/NACL 100 ML 200 MG/100 ML BAG 100 MG IVPB (13:14)
[2019-10-30] MEDS: PANTOPRAZOLE SODIUM IV 40 MG VIAL IV PUSH ×2 (13:22→22:43)
[2019-10-30] MEDS: SILVERGEL (ELTA) 45 ML 1 APPLIC TOPICAL (13:23)
--- NOTE | 2019-10-30 15:23 | P.HPUP_ITS ---
History and Physical Update Update Date/Time: 10/30/19 15:23 History and Physical has been reviewed, including an updated exam of the patient. There are are changes in the patient's condition.The G-tube placed earlier today is found to be most likely situated in the somewhat inflamed les ser sac rather than within the lumen of the stomach. This was determined on a postoperative injection of Gastrografin into the G-tube to confirm placement within the stomach. Therefore, I have discussed with patient's who is [id number] a proper about re- laparotomy with removal and replacement of this G-tube into the body of the stomach. This time I plan to open the stomach more widely see the NG tube in get the gastrostomy tube into the same area as where the NG tube is placed. We may have to wait little bit longer to feed him afterwards but this will be safer. I will probably also place a drain into the area of the lesser sac. She was okay with proceeding in this manner. Patient's INR slightly high therefore will give him another in her fresh frozen plasma on the way to the OR. Risks, benefits, and alternatives of repeat laparotomy with removal of previously placed G-tube and repositioning into the stomach.have been discussed and questions answered. Patient agrees to proceed with procedure. [place]
[2019-10-30] MEDS: BUPIVACAINE/EPINEPHRINE 0.5% 30 ML VIAL 10 ML INFILTRATE (15:57)
--- NOTE | 2019-10-30 17:09 | PM.PROC ---
Procedure Note - Detailed Date of procedure: 10/30/19 Pre-op diagnosis: Abdominal pain. Malnutrition with need for gastrostomy feedings Mental status changes obviating extubation and eating Recent fungal peritonitis Post-op diagnosis: same Procedure performed: Reopening of recent laparotomy for repositioning of gastrostomy tube. Placement of 15 [address] [place] SILVA drain into the lesser sac Description of procedure: The patient was brought to the operating room from ICU. After being placed on the anesthesia machine via his recently placed tracheostomy tube the patient's entire upper abdomen was prepped and draped in usual sterile fashion with Betadine. The draining coverings in the left lower quadrant and the dressing in the right lower quadrant were left in place because we would not need to do anything in the lower abdomen. Time-out was performed confirming patient site of surgery. Campus from the previous closure were removed prior to prepping. Following this the suture holding the midline fascia together was carefully elevated and snipped with Villegas scissors. The suture was removed. We reopened and explored the upper abdomen. Careful finger dissection allowed me to explore in front of the stomach and behind left lobe of the liver. Reviewing the previous x-rays on after the last G-tube placement we noted that the G-tube was positioned slightly below what appears to be the wall the stomach. High then snipped the silk sutures on the underside of the previously placed G-tube and released it from the underlying tissue. We released the silastic ring and pulled back up to the Y connector on the G-tube. Following this I try to deflate the balloon of the G-tube in could not get any fluid out. I changed syringes and still could not any fluid out we then carefully remove the G-tube from what appears to be the lesser sac and the balloon was not inflated. (I suspect that someone aspirated this when they tried to inject dye into the gastrostomy portion of the G-tube). A few of the sutures in this area were left so that I could later put a SILVA drain into the lesser sac. We then did a slightly more dissection anteriorly and found the anterior wall of the stomach slightly more cephalad from where this site was. I chose a place more cephalad on what was more obviously the stomach wall. Stay sutures of 2 0 silk were placed cephalad and inferior in the area of the planned opening. This time I made a 1 cm slit in the anterior wall the stomach and went straight through until we saw mucosa. This opening was made just beneath the entry site of the G-tube into the anterior abdominal wall. I then put my finger in this and I could feel the NG tube we then dilated this with a hemostat and confirmed we could see the NG tube. Following this I placed a pursestring suture of 2 0 Vicryl circumferentially around this opening. I then slid the G-tube into the stomach after checking 20 cc balloon which filled up and did not have a leak. The balloon was then again old filled with 20 cc of fluid and pulled back and the pursestring suture tied. I then used this toward the upper left side to suture to the anterior abdominal wall and the 2 silk sutures cephalad and caudad to suture it to the anterior abdominal wall pulling this up such that the marker on the outside of the G-tube was between the 2 and 4 cm arya. The silastic ring was slid down onto the skin. One more silk suture was used to suture the anterior abdominal wall to the anterior surface of the stomach just medial to the entry site of the G-tube into the stomach. Following this we irrigated the area and I brought in a 15 round SILVA drain past this with the trocar through the lateral abdominal wall well away from the exit site of the G-tube at about the site where I had entered the upper left quadrant with a 5 mm port for his laparoscopy 10 days ago. This drain was sutured in the place with a 3 0 nylon after cutting a small portion of t
--- NOTE | 2019-10-30 17:32 | PM.IMPN ---
Progress Note: A&P Assessment and Plan (1) Septic shock: Code(s): A41.9 - Sepsis, unspecified organism; R65.21 - Severe sepsis with septic shock Status: Deleted Assessment and Plan: patient is 78-year-old male with history of end-stage renal disease on peritoneal dialysis presented emergency department had a cardiac arrest ROSC after 1 round of epinephrine per protocol ROSC, with shortness of breath and hypoxic patient was intubated currently on vent, patient may have aspirated pneumonia, patient in septic shock and on pressor, patient being treated with Levaquin, vancomycin and Flagyl, discussed with agriculture instructor prognosis is poor we appreciate agriculture instructor, patient is seen by Dr. Aguilar nephrology for peritoneal dialysis, Review Trainer had spoken with patient's , she would like to keep full code and continue to treat the patient. septic shock resolved and patient is off Levophed, septic shock most likely secondary to aspiration pneumonia possibly peritonitis and treated with Flagyl cefepime and ceftazidime intraperitoneal by nephrology, patient is his leukocytosis etiology uncertain seen by Dr. Rowe and agriculture instructor, stopped all antibiotic and has started the patient vancomycin and aztreonam, meanwhile patient was seen by surgery and peritoneal dialysis catheter was removed and now patient is on hemodialysis,workup is in progress patient clinically stable on vent, patient is seen by intensive, Dr. Rowe, ID Dr. Aguilar nephrology and General surgery team, patient intubated, for scheduled dialysis, unable to wean the patient off the ventilator, once PEG and trach fully establised, pt to be transferred to LTAC patient (2) Cardiorespiratory arrest: Code(s): I46.9 - Cardiac arrest, cause unspecified Status: Acute Assessment and Plan: Sp cardioarrest (3) Aspiration pneumonia: Code(s): J69.0 - Pneumonitis due to inhalation of food and vomit Status: Acute Assessment and Plan: Patient had aspirated resulting in pneumonia (4) Atrial fibrillation: Onset Date: ~09/2019 Code(s): I48.91 - Unspecified atrial fibrillation Status: Acute (5) Hyponatremia: Onset Date: Unknown Code(s): E87.1 - Hypo-osmolality and hyponatremia Status: Acute Assessment and Plan: Rate is controlled (6) Abnormal computed tomography of abdomen and pelvis: Code(s): R93.5 - Abnormal findings on diagnostic imaging of other abdominal regions, including retroperitoneum Status: Acute Assessment and Plan: Suspect peritonitis (7) Peritonitis (acute) generalized: Code(s): K65.0 - Generalized (acute) peritonitis Status: Acute Assessment and Plan: Patient on peritoneal dialysis,patient is being treated with antibiotics Subjective Date/time seen: 10/30/19 17:33 Interval history: 78-year-old male with history of end-stage renal disease on peritoneal dialysis presented emergency department had a cardiac arrest ROSC after 1 round of epinephrine per protocol ROSC, with shortness of breath and hypoxic patient was intubated currently on vent, patient may have aspirated pneumonia, patient in septic shock and on pressor, patient being treated with Levaquin, vancomycin and Flagyl, discussed with agriculture instructor prognosis is poor we appreciate agriculture instructor, patient is seen by Dr. Aguilar nephrology for peritoneal dialysis, Review Trainer had spoken with patient's , she would like to keep full code and continue to treat the patient. septic shock resolved and patient is off Levophed, septic shock most likely secondary to aspiration pneumonia possibly peritonitis and treated with Flagyl cefepime and ceftazidime intraperitoneal by nephrology, patient is his leukocytosis etiology uncertain seen by Dr. Rowe and agriculture instructor, stopped all antibiotic and has started the patient vancomycin and aztreonam, meanwhile patient was seen by surgery and periton
[2019-10-30 18:06] LABS: Glucose Point of Care 103 (65-105)
[2019-10-30] MEDS: EPOETIN ALFA-EPBX 10,000 UNITS/ML VIAL 10000 UNITS IV PUSH (20:44)
[2019-10-30] MEDS: HEPARIN SODIUM 1,000 UNITS/ML VIAL 1000 UNITS IV PUSH (22:36)
[2019-10-30] MEDS: HEPARIN SODIUM 5,000 UNITS/ML VIAL 5000 UNITS SUB-Q (22:43)
--- NOTE | 2019-10-30 23:00 | P.PNNP_ITS ---
Progress Note: A&P Assessment and Plan (1) ESRD (end stage renal disease) on dialysis: Code(s): N18.6 - End stage renal disease; Z99.2 - Dependence on renal dialysis Status: Acute Assessment and Plan: * converted to hemodialysis given #2 * HD later today (2) Peritonitis (acute) generalized: Code(s): K65.0 - Generalized (acute) peritonitis Status: Acute Assessment and Plan: * cultures growing yeast * s/p PD catheter removal and washout * drains in place * antibiotics/antifungals as outlined by Infectious Disease * Dr Rowe on the case (3) Hyponatremia: Onset Date: Unknown Code(s): E87.1 - Hypo-osmolality and hyponatremia Status: Acute Assessment and Plan: * partly due to ESRD * slow improvent with hemodialysis * now in the mid 130s (4) Cardiorespiratory arrest: Code(s): I46.9 - Cardiac arrest, cause unspecified Status: Acute Assessment and Plan: * presumably precipitated by aspiration * remains on mechanical ventilation (5) Aspiration pneumonia: Code(s): J69.0 - Pneumonitis due to inhalation of food and vomit Status: Acute Assessment and Plan: * on antibiotics * intubated and on mechanical ventilation * trach is in (6) Encephalopathy: Code(s): G93.40 - Encephalopathy, unspecified Status: Acute Assessment and Plan: * some improvement noted * EEG results noted * continue supportive care Subjective Date/time seen: 10/30/19 23:00 Interval history: pt just had trach put in. comfortable on the vient. to get HD soon Review of Systems Review of Systems: ROS unobtainable: Yes unobtainable due to medical condition Exam Narrative: Exam Narrative: General: WD/WN male - intubated Heart: normal S1 and S2; no rub Lungs: crackles at bases and diminished breath sonds Abdomen: soft, nontender, nondistended, positive bowel sounds Extremities: no cyanosis or clubbing; edema in upper/lower extremities as well as abdominal wall Skin: no rash Objective Data Vital Signs Vital Signs: Vital Signs - 24 hr 10/29/19 23:10 10/30/19 00:00 10/30/19 02:00 Temperature 36.6 C Pulse Rate 102 H 105 H 88 Respiratory Rate 22 H 21 H Blood Pressure 112/51 L 100/64 Pulse Oximetry 99 100 100 10/30/19 03:20 10/30/19 04:00 10/30/19 04:22 Temperature 36.6 C Pulse Rate 88 94 88 Respiratory Rate 21 H Blood Pressure 109/53 L Pulse Oximetry 100 100 100 10/30/19 05:24 10/30/19 05:41 10/30/19 06:00 Temperature 37.1 C 36.8 C Pulse Rate 105 H 97 108 H Respiratory Rate 28 H 26 H 19 Blood Pressure 99/52 L 101/66 134/59 L Pulse Oximetry 100 100 99 10/30/19 06:41 10/30/19 07:04 10/30/19 07:57 Temperature 36.9 C 36.9 C 36.5 C Pulse Rate 100 97 108 H Respiratory Rate 24 H 21 H 24 H Blood Pressure 101/51 L 111/69 107/57 L Pulse Oximetry 100 100 100 10/30/19 08:00 10/30/19 08:09 10/30/19 12:00 Temperature 36.1 C L Pulse Rate 103 H 98 95 Respiratory Rate 18 Blood Pressure 111/61 Pulse Oximetry 100 100 10/30/19
--- NOTE | 2019-10-30 23:00 | PM.PNNEP ---
Progress Note: A&P Assessment and Plan (1) ESRD (end stage renal disease) on dialysis: Code(s): N18.6 - End stage renal disease; Z99.2 - Dependence on renal dialysis Status: Acute Assessment and Plan: converted to hemodialysis given #2 HD later today (2) Peritonitis (acute) generalized: Code(s): K65.0 - Generalized (acute) peritonitis Status: Acute Assessment and Plan: cultures growing yeast s/p PD catheter removal and washout drains in place antibiotics/antifungals as outlined by Infectious Disease Dr Rowe on the case (3) Hyponatremia: Onset Date: Unknown Code(s): E87.1 - Hypo-osmolality and hyponatremia Status: Acute Assessment and Plan: partly due to ESRD slow improvent with hemodialysis now in the mid 130s (4) Cardiorespiratory arrest: Code(s): I46.9 - Cardiac arrest, cause unspecified Status: Acute Assessment and Plan: presumably precipitated by aspiration remains on mechanical ventilation (5) Aspiration pneumonia: Code(s): J69.0 - Pneumonitis due to inhalation of food and vomit Status: Acute Assessment and Plan: on antibiotics intubated and on mechanical ventilation trach is in (6) Encephalopathy: Code(s): G93.40 - Encephalopathy, unspecified Status: Acute Assessment and Plan: some improvement noted EEG results noted continue supportive care Subjective Date/time seen: 10/30/19 23:00 Interval history: pt just had trach put in. comfortable on the vient. to get HD soon Review of Systems Review of Systems: ROS unobtainable: Yes unobtainable due to medical condition Exam Narrative: Exam Narrative: General: WD/WN male - intubated Heart: normal S1 and S2; no rub Lungs: crackles at bases and diminished breath sonds Abdomen: soft, nontender, nondistended, positive bowel sounds Extremities: no cyanosis or clubbing; edema in upper/lower extremities as well as abdominal wall Skin: no rash Objective Data Vital Signs Vital Signs: Vital Signs - 24 hr 10/29/19 23:10 10/30/19 00:00 10/30/19 02:00 Temperature 36.6 C Pulse Rate 102 H 105 H 88 Respiratory Rate 22 H 21 H Blood Pressure 112/51 L 100/64 Pulse Oximetry 99 100 100 10/30/19 03:20 10/30/19 04:00 10/30/19 04:22 Temperature 36.6 C Pulse Rate 88 94 88 Respiratory Rate 21 H Blood Pressure 109/53 L Pulse Oximetry 100 100 100 10/30/19 05:24 10/30/19 05:41 10/30/19 06:00 Temperature 37.1 C 36.8 C Pulse Rate 105 H 97 108 H Respiratory Rate 28 H 26 H 19 Blood Pressure 99/52 L 101/66 134/59 L Pulse Oximetry 100 100 99 10/30/19 06:41 10/30/19 07:04 10/30/19 07:57 Temperature 36.9 C 36.9 C 36.5 C Pulse Rate 100 97 108 H Respiratory Rate 24 H 21 H 24 H Blood Pressure 101/51 L 111/69 107/57 L Pulse Oximetry 100 100 100 10/30/19 08:00 10/30/19 08:09 10/30/19 12:00 Temperature 36.1 C L Pulse Rate 103 H 98 95 Respiratory Rate 18 Blood Pressure 111/61 Pulse Oximetry 100 100 10/30/19 14:00 10/30/19 17:06 10/30/19 17:22 Temperature 36.0 C L Pulse Rate 89 74 82 Respiratory Rate 20 18 Blood Pressure 99/63 L 103/57 L Pulse Oximetry 100 100 100 10/30/19 17:31 10/30/19 17:37 10/30/19 17:46 Temperature 36.3 C L 36.2 C L Pulse Rate 87 89 86 Respiratory Rate 22 H 22 H Blood Pressure 177/56 H 117/56 L Pulse Oximetry 100 100 10/30/19 18:00 10/30/19 18:45 10/30/19 18:51 Temperature 35.7 C L Pulse Rate 89 87 88 Respiratory Rate 22 H 18 Blood Pressure 119/57 L 110/59 L 120/66 Pulse Oximetry 100 100 10/30/19 19:00 10/30/19 19:15 10/30/19 19:30 Temperature 36.4 C L Pulse Rate 94 95 95 Respiratory Rate 27 H Blood Pressure 89/52 L 84/62 L 81/67 L Pulse Oximetry 100 10/30/19 19:45 10/30/19 20:00 10/30/19 20:02 Temperature 36.4 C L Pulse Rate 95 94 77 Respiratory Rate 27 H Blood Pressure 94/51 L 92/59 L Pulse
[2019-10-30 23:31] LABS: Glucose Point of Care 79 (65-105)
[2019-10-31] VITALS (24 sets, daily range): BP systolic 85–138; BP diastolic 44–79; PULSE 99–130; RESP 20–31; TEMP 36.9–37.5; O2SAT 90–100
[2019-10-31] MEDS: DIGOXIN INJ 250 MCG/ML 2 ML AMP (*BKC) IV PUSH (03:49)
[2019-10-31] MEDS: metroNIDAZOLE 500 MG/ISO 100ML 500 MG/100 ML BAG 100 MG IVPB ×4 (05:47→23:49)
[2019-10-31] MEDS: CENTRAL LINE FLUSH 10 ML IV PUSH ×2 (05:48→20:44)
[2019-10-31] MEDS: LEVOTHYROXINE SODIUM 75 MCG TABLET PO (05:49)
[2019-10-31 06:13] LABS: Glucose Point of Care 66 (65-105)
[2019-10-31 06:48] LABS: INR 1.8; Partial Thromboplastin Time 39.4 SECONDS (22.3-36.8); Prothrombin Time 20.8 Seconds (11.1-14.7)
[2019-10-31 07:30] LABS: Alanine Aminotransferase 20 U/L (4-50); Albumin Level 2.1 g/dL (3.5-5.1); Alkaline Phosphatase 315 U/L (38-126); Anion Gap 7 mmol/L (8-16); Aspartate Amino Transferase 45 U/L (17-59); Bilirubin,Total 0.6 mg/dL (0.2-1.3); Blood Urea Nitrogen 16 mg/dL (9-20); Calcium 6.8 mg/dL (8.4-10.2); Carbon Dioxide 28 mmol/L (22-30); Chloride 100 mmol/L (98-107); Estimated CRCL calculation 28 ml/min; Estimated Glomerular Filt Rate 39; Glucose 64 mg/dL (75-110); Magnesium 1.8 mg/dL (1.6-2.3); Potassium 3.7 mmol/L (3.4-5.0); Sodium 135 mmol/L (137-145)
--- NOTE | 2019-10-31 07:30 | WPDINTPN ---
Progress Note: A&P Assessment and Plan (1) Severe sepsis: Code(s): A41.9 - Sepsis, unspecified organism; R65.20 - Severe sepsis without septic shock Status: Acute Assessment and Plan: and septic shock secondary to fungal peritonitis and PNA - OFF LEVOPHED since 2:00 a.m. on 10/16/2019 - peritoneal cultures growing Yeast - continue IV metronidazole and fluconazole per infectious disease - now off of antibacterials - leukocytosis gradually improving - CT scan of the abdomen and pelvis on 10/16 showed interval progression of patchy bilateral airspace disease, compatible pneumonia. Bilateral pleural effusions right greater than left moderate ascites which appears loculated the left upper abdomen, cannot exclude peritonitis, abdominal wall thickening suspicious for cystitis. peritoneal dialysis catheter present in the pelvis - 10/19/2019 peritoneal fluid Gram stain , no organism seen - 10/19/2019 peritoneal fluid culture, growing Linda albicans - 10/18/2019 blood cultures negative x2 - 10/21/2019 repeat peritoneal cultures and peritoneal catheter cultures growing Linda albicans (2) Peritonitis: Onset Date: ~10/2019 Code(s): K65.9 - Peritonitis, unspecified Status: Acute Assessment and Plan: Linda peritnoitis - status post removal of peritoneal dialysis catheter on 10/21/2019, Catheter and peritoneal fluid sent for culture - SILVA drains x2 draining minimal amount of serosanguineous fluid, surgery following the patient - continue IV fluconazole per infectious disease (3) Acute respiratory failure: Code(s): J96.00 - Acute respiratory failure, unspecified whether with hypoxia or hypercapnia Status: Acute Assessment and Plan: - patient on mechanical ventilation patient was on ASV peep of 5, 30% FiO2 but was switched to CMV yesterday when he was given sedation for PEG tube placement. - will try ASV mode again today - patient now status post tracheostomy (4) Aspiration pneumonia: Code(s): J69.0 - Pneumonitis due to inhalation of food and vomit Status: Acute Assessment and Plan: completed course of antibiotics (5) Encephalopathy: Code(s): G93.40 - Encephalopathy, unspecified Status: Acute Assessment and Plan: - gradually improving - continue to hold sedation - encephalopathy likely multifactorial related to metabolic /uremic encephalopathy, infectious encephalopathy, medication related - neurology has been consulted and appreciate their evaluation and recommendations - EEG was done on 10/20/2019 and discussed with Neurology, EEG had significant slowing, likely related to severe encephalopathy. No epileptiform discharges were seen - patient did have a CT scan of the brain on 10/18/2019: was negative for any acute intracranial pathology (6) Cardiorespiratory arrest: Code(s): I46.9 - Cardiac arrest, cause unspecified Status: Acute Assessment and Plan: PEA arrest likely due aspiration,ROSC after 1 round of epinephrine - post arrest pt was following commands and so did not require hypothermia protocol - trops elevated to 0.40 likely due to cardiac arrest and renal failure (7) Colitis: Code(s): K52.9 - Noninfective gastroenteritis and colitis, unspecified Status: Acute Assessment and Plan: RESOLVED - patient presented with abdominal pain, nausea, vomiting and diarrhea, CT scan of the abdomen and pelvis on 10/13/2019 showed sigmoid colon wall thickening is consistent with colitis. Repeat CT abdomen pelvis on 10/17/2019 did not show any evidence of mesenteric ischemia. He does have ascites and 1 pocket of ascites seems to be loculated, possible peritonitis, bladder wall thickening suspicion for cystitis - continue antibiotics as above - OFF TPN - tube feeds on hold for PEG tube placement will resume as per surgery recommendations after the procedure - 10/28 by
[2019-10-31 07:54] LABS: Glucose Point of Care 57 (65-105)
[2019-10-31] MEDS: DEXTROSE 50% 25 GM/50 ML SYRINGE IV PUSH (07:54)
--- NOTE | 2019-10-31 08:26 | PM.PNGS ---
Progress Note: A&P Assessment and Plan (1) Peritoneal dialysis catheter infection: Code(s): T85.71XA - Infection and inflammatory reaction due to peritoneal dialysis catheter, initial encounter Status: Acute Assessment and Plan: PD catheter removed on October 20. SILVA drain in LLQ still showing some greyish, serosanguineous fluid. This is decreasing daily and once almost nothing is coming out I will remove it. The new LUQ one had only about 30 cc out for the last 24 hours or since his 2nd OR yesterday. No new cultures taken yesterday. Peritoneal fluid cultures have show yeast, Linda albicans. pt on Fluconazole. (2) Severe sepsis: Code(s): A41.9 - Sepsis, unspecified organism; R65.20 - Severe sepsis without septic shock Status: Acute Assessment and Plan: Fungal peritonitis, aspiration pneumonitis, on antifungal and anti-microbial therapy. Remains on mechanical ventilator. (3) Peritonitis: Onset Date: ~10/2019 Code(s): K65.9 - Peritonitis, unspecified Status: Acute Assessment and Plan: Should improve with peritoneal dialysis catheter removed. Continue antifungal treatment. (4) ESRD (end stage renal disease) on dialysis: Code(s): N18.6 - End stage renal disease; Z99.2 - Dependence on renal dialysis Status: Acute Assessment and Plan: Patient receiving Hemodialysis via right IJ tunneled central venous catheter. Additional Plan Will plan to follow output of the remining 2 SILVA drains. (Now about 10 cc on the LLQ drain for last 24 hours). Most likely will leave the this one in until there is almost no output. Patient currently on Fluconazoe for an antifungal. Subjective Subjective Date/Time Seen: 10/31/19 08:26 Post Op day: 1 (S/P open G-tube placement (POD #10 from PD cath removal)) Patient reports: no new complaints Interval history: Nurse reports patient tolerated hemodialysis late last evening. NG has only put out 200 cc overnight. Abdominal x-ray this morning shows no distended air-fluid levels of small bowel. Will plan to start tube feedings through the gastrostomy tube and check residuals for 24 hours through the NG tube. If residuals or low will plan to remove NG the about this time tomorrow. Review of Systems Review of Systems: ROS unobtainable: Yes unobtainable due to endotracheal tube and unobtainable due to mental status Exam HENMT: Head: normal to inspection, normocephalic and atraumatic Ears: hearing grossly normal bilaterally and external ears normal General nose exam: Normal external nose present and no epistaxis Face and sinus: other ( NG-tube in right near.) Mouth: Yes Normal oral and palatal mucosa present and Yes moist mucous membranes Other: Patient now has tracheostomy. Nurse reports no significant bleeding around the tracheostomy site overnight. Eyes: General: appearance normal, both eyes and all related structures Sclera: sclerae normal EOM: EOMs intact bilaterally Neck: Neck: normal visual inspection, full ROM, no JVD and other ( right IJ tunneled dialysis catheter dry and intact.) Lymphatic: lymphadenopathy not noted Other: Incisions on right neck clean and dry. Triple lumen central line on the left without signs of purulent exudate. Resp: Effort & Inspection: able to speak in complete sentences and no respiratory distress Auscultation: rhonchi right upper and diminished lung sounds (at bases) bilateral Other: Patient intubated and ventilated. Upper anterior lung findings fairly clear to auscultation bilaterally today. GI: GI Palp: Yes abdominal tenderness ( Appropriate, near incisions) and No Guarding due to palpation present (GI) Auscultation: normal bowel sounds Other: midline incision site without significant drainage on the dressing. Will leave this alone today unchanged tomorrow. Minimal if any drainage around the G-tube site. 30 cc out the left upper quadrant SILVA drain in the la
[2019-10-31] MEDS: PRAVASTATIN SODIUM 20 MG TABLET 80 MG PO (08:36)
[2019-10-31] MEDS: ASPIRIN 81 MG ENTERIC TABLET PO (08:36)
[2019-10-31] MEDS: FLUCONAZOLE 200 MG/NACL 100 ML 200 MG/100 ML BAG 100 MG IVPB (08:36)
[2019-10-31] MEDS: PANTOPRAZOLE SODIUM IV 40 MG VIAL IV PUSH ×2 (08:36→20:43)
[2019-10-31] MEDS: HEPARIN SODIUM 5,000 UNITS/ML VIAL 5000 UNITS SUB-Q ×2 (08:36→20:43)
[2019-10-31] MEDS: ACIDOPHILUS/BULGARICUS CHEWABLE TABLET 1 TABLET PO (08:37)
[2019-10-31] MEDS: FLUTICASONE PROPIONATE 0.05% NA SPR 16 GM BTL (*BKC) 2 SPRAY NASAL (08:37)
[2019-10-31] MEDS: SILVERGEL (ELTA) 45 ML 1 APPLIC TOPICAL (08:40)
--- NOTE | 2019-10-31 08:41 | WPDANESPN ---
Anes - Prog Note Post-Op Date/Time: 10/31/19 08:41 Cardiovascular status: other Respiratory status: other Airway patency: other Mental status: other Post-Op hydration status: other Vital Signs: Last Vital Signs Temp 37.0 C 10/31/19 03:53 Pulse 111 H 10/31/19 08:23 Resp 20 10/31/19 05:39 BP 110/72 10/31/19 05:39 Pulse Ox 100 10/31/19 08:23 I/O: Intake & Output 10/30/19 10/31/19 10/31/19 23:59 07:59 15:59 Intake Total 415 290 Output Total 1020 240 Balance -605 50 Laboratory Tests 10/30/19 12:43 10/31/19 05:53 10/29/19 10/30/19 10/30/19 13:15 12:20 12:43 Hgb Hct PT INR APTT Cancelled Sodium Potassium Chloride Carbon Dioxide Anion Gap BUN Creatinine Estim Creat Clear Calc Estimated GFR Glucose POC Capillary Glucose 116 H Calcium Magnesium Total Bilirubin AST ALT Alkaline Phosphatase Total Protein Albumin Blood Type A Negative Antibody Screen Negative 10/30/19 10/30/19 10/30/19 12:43 12:43 17:33 Hgb 8.4 L Hct 27.2 L PT 22.3 H INR 2.0 APTT 41.1 H Sodium Potassium Chloride Carbon Dioxide Anion Gap BUN Creatinine Estim Creat Clear Calc Estimated GFR Glucose POC Capillary Glucose 103 Calcium Magnesium Total Bilirubin AST ALT Alkaline Phosphatase Total Protein Albumin Blood Type Antibody Screen 10/30/19 10/31/19 10/31/19 23:29 05:43 05:53 Hgb Hct PT INR APTT Sodium 135 L Potassium 3.7 Chloride 100 Carbon Dioxide 28 Anion Gap 7 L BUN 16 D Creatinine 1.70 H Estim Creat Clear Calc 28 Estimated GFR 39 L Glucose 64 L POC Capillary Glucose 79 66 Calcium 6.8 L Magnesium 1.8 Total Bilirubin 0.6 AST 45 ALT 20 Alkaline Phosphatase 315 H Total Protein 5.0 L Albumin 2.1 L Blood Type Antibody Screen 10/31/19 10/31/19 05:53 07:52 Hgb Hct PT 20.8 H INR 1.8 APTT 39.4 H Sodium Potassium Chloride Carbon Dioxide Anion Gap BUN Creatinine Estim Creat Clear Calc Estimated GFR Glucose POC Capillary Glucose 57 L* Calcium Magnesium Total Bilirubin AST ALT Alkaline Phosphatase Total Protein Albumin Blood Type Antibody Screen Microbiology 10/27/19 14:05 Pleural Fluid Fungal Culture - Preliminary Post-procedural complaints: none Patient Feedback: Patient satisfied with anesthetic care.
[2019-10-31 08:49] LABS: Basophils Absolute Auto 0.2 K/mm3 (0.0-0.1); Basophils Percent Auto 1.1 % (0.2-1.2); Eosinophils Absolute Auto 0.1 K/mm3 (0-0.3); Eosinophils Percent Auto 0.9 % (0-4.4); Hematocrit 27.2 % (42.0-52.0); Hemoglobin 8.4 g/dL (14.0-18.0); Lymphocytes Absolute Auto 1.64 K/mm3 (0.9-3.2); Mean Corpuscular HGB Conc 30.9 g/dl (32-36); Mean Corpuscular Hemoglobin 33.1 pg (26-34); Mean Corpuscular Volume 107.1 fl (80-100); Mean Platelet Volume 11.4 fl (7.4-10.4); Monocytes Absolute Auto 1.2 K/mm3 (0.1-0.6); Monocytes Percent Auto 7.8 % (2.6-8.5); Neutrophils Absolute Auto 11.2 K/mm3 (1.3-6.7); Neutrophils Percent Auto 75.2 % (45.5-73.1); Platelet Count Result 392 k/mm3 (150-375); Red Blood Count 2.54 M/mm3 (4.6-6.20); Red Cell Distribution Width 23.2 % (11.5-14.5); White Blood Count 14.9 K/mm3 (4.5-10.0)
--- NOTE | 2019-10-31 10:21 | PM.EVENT ---
Event Note Event Note Event Note: It appears that fluconazole unreliably decreases the activity of Plavix. Patient's stent was in 2014 and current indication is AFib hence I will hold Plavix and continue aspirin at this time
[2019-10-31 11:22] LABS: Glucose Point of Care 111 (65-105)
--- NOTE | 2019-10-31 11:31 | PM.PNNEP ---
Progress Note: A&P Assessment and Plan (1) ESRD (end stage renal disease) on dialysis: Code(s): N18.6 - End stage renal disease; Z99.2 - Dependence on renal dialysis Status: Acute Assessment and Plan: Did well on hemodialysis yesterday. (2) Peritonitis (acute) generalized: Code(s): K65.0 - Generalized (acute) peritonitis Status: Acute Assessment and Plan: cultures growing yeast s/p PD catheter removal and washout drains in place antibiotics/antifungals as outlined by Infectious Disease Dr Rowe on the case (3) Hyponatremia: Onset Date: Unknown Code(s): E87.1 - Hypo-osmolality and hyponatremia Status: Acute Assessment and Plan: partly due to ESRD slow improvent with hemodialysis now in the mid 130s (4) Cardiorespiratory arrest: Code(s): I46.9 - Cardiac arrest, cause unspecified Status: Acute Assessment and Plan: presumably precipitated by aspiration remains on mechanical ventilation (5) Aspiration pneumonia: Code(s): J69.0 - Pneumonitis due to inhalation of food and vomit Status: Acute Assessment and Plan: on antibiotics intubated and on mechanical ventilation trach is in Infectious Disease following the patient (6) Encephalopathy: Code(s): G93.40 - Encephalopathy, unspecified Status: Acute Assessment and Plan: some improvement noted EEG results noted continue supportive care Subjective Date/time seen: 10/31/19 11:31 Interval history: patient is awake. comfortable on the vient. He had dialysis yesterday and it went well. Exam Narrative: Exam Narrative: General: WD/WN male - intubated Heart: normal S1 and S2; no rub Lungs: crackles at bases and diminished breath sonds Abdomen: soft, nontender, nondistended, positive bowel sounds Extremities: no cyanosis or clubbing; edema in upper/lower extremities as well as abdominal wall Skin: no rash Objective Data Vital Signs Vital Signs: Vital Signs - 24 hr 10/30/19 12:00 10/30/19 14:00 10/30/19 17:06 Temperature 36.1 C L Pulse Rate 95 89 74 Respiratory Rate 18 20 Blood Pressure 111/61 99/63 L Pulse Oximetry 100 100 100 10/30/19 17:22 10/30/19 17:31 10/30/19 17:37 Temperature 36.0 C L 36.3 C L 36.2 C L Pulse Rate 82 87 89 Respiratory Rate 18 22 H 22 H Blood Pressure 103/57 L 177/56 H 117/56 L Pulse Oximetry 100 100 100 10/30/19 17:46 10/30/19 18:00 10/30/19 18:45 Temperature 35.7 C L Pulse Rate 86 89 87 Respiratory Rate 22 H 18 Blood Pressure 119/57 L 110/59 L Pulse Oximetry 100 100 10/30/19 18:51 10/30/19 19:00 10/30/19 19:15 Temperature 36.4 C L Pulse Rate 88 94 95 Respiratory Rate 27 H Blood Pressure 120/66 89/52 L 84/62 L Pulse Oximetry 100 10/30/19 19:30 10/30/19 19:45 10/30/19 20:00 Temperature 36.4 C L Pulse Rate 95 95 94 Respiratory Rate 27 H Blood Pressure 81/67 L 94/51 L 92/59 L Pulse Oximetry 100 10/30/19 20:02 10/30/19 20:15 10/30/19 20:30 Temperature Pulse Rate 77 101 H 95 Respiratory Rate Blood Pressure 111/58 L 79/53 L Pulse Oximetry 100 10/30/19 20:36 10/30/19 20:45 10/30/19 21:00 Temperature Pulse Rate 95 98 97 Respiratory Rate Blood Pressure 92/59 L 109/57 L 81/65 L Pulse Oximetry 10/30/19 21:07 10/30/19 21:09 10/30/19 21:15 Temperature Pulse Rate 98 97 Respiratory Rate Blood Pressure 105/86 96/63 L Pulse Oximetry 10/30/19 21:30 10/30/19 21:45 10/30/19 21:59 Temperature Pulse Rate 95 97 99 Respiratory Rate Blood Pressure 111/95 H 94/49 L Pulse Oximetry 10/30/19 22:00 10/30/19 22:15 10/30/19 22:22 Temperature Pulse Rate 99 99 97 Respiratory Rate 26 H Blood Pressure 101/84 95/49 L 90/53 L Pulse Oximetry 100 10/30/19 22:30 10/30/19 22:37 10/30/19 23:24 Temperature 36.6 C 36.5 C Pulse Rate 99 100 96 Respiratory Rate 17 18 Blood
--- NOTE | 2019-10-31 18:30 | PM.IMPN ---
Progress Note: A&P Assessment and Plan (1) Septic shock: Code(s): A41.9 - Sepsis, unspecified organism; R65.21 - Severe sepsis with septic shock Status: Deleted Assessment and Plan: patient is 78-year-old male with history of end-stage renal disease on peritoneal dialysis presented emergency department had a cardiac arrest ROSC after 1 round of epinephrine per protocol ROSC, with shortness of breath and hypoxic patient was intubated currently on vent, patient may have aspirated pneumonia, patient in septic shock and on pressor, patient being treated with Levaquin, vancomycin and Flagyl, discussed with pole framer machine prognosis is poor we appreciate pole framer machine, patient is seen by Dr. Aguilar nephrology for peritoneal dialysis, Singing Teacher had spoken with patient's , she would like to keep full code and continue to treat the patient. septic shock resolved and patient is off Levophed, septic shock most likely secondary to aspiration pneumonia possibly peritonitis and treated with Flagyl cefepime and ceftazidime intraperitoneal by nephrology, patient is his leukocytosis etiology uncertain seen by Dr. Rowe and pole framer machine, stopped all antibiotic and has started the patient vancomycin and aztreonam, meanwhile patient was seen by surgery and peritoneal dialysis catheter was removed and now patient is on hemodialysis, unable to wean the patient off the ventilator, once PEG and trach fully establised, pt to be transferred to LTAC patient (2) Cardiorespiratory arrest: Code(s): I46.9 - Cardiac arrest, cause unspecified Status: Acute Assessment and Plan: Sp cardioarrest (3) Aspiration pneumonia: Code(s): J69.0 - Pneumonitis due to inhalation of food and vomit Status: Acute Assessment and Plan: Patient had aspirated resulting in pneumonia and septic shock secondary to fungal peritonitis and PNA See ID recommendations (4) Atrial fibrillation: Onset Date: ~09/2019 Code(s): I48.91 - Unspecified atrial fibrillation Status: Acute (5) Hyponatremia: Onset Date: Unknown Code(s): E87.1 - Hypo-osmolality and hyponatremia Status: Acute Assessment and Plan: Rate is controlled (6) Abnormal computed tomography of abdomen and pelvis: Code(s): R93.5 - Abnormal findings on diagnostic imaging of other abdominal regions, including retroperitoneum Status: Acute Assessment and Plan: Suspect peritonitis (7) Peritonitis (acute) generalized: Code(s): K65.0 - Generalized (acute) peritonitis Status: Acute Assessment and Plan: Patient on peritoneal dialysis,patient is being treated with antibiotics and septic shock secondary to fungal peritonitis and PNA See ID recommendations (8) Peritoneal dialysis catheter infection: Code(s): T85.71XA - Infection and inflammatory reaction due to peritoneal dialysis catheter, initial encounter Status: Acute Assessment and Plan: Septic shock secondary to fungal peritonitis and PNA, see IDrecommendations POD#11 s/p removal of PD catheter for peritonitis (9) Encephalopathy: Code(s): G93.40 - Encephalopathy, unspecified Status: Acute Assessment and Plan: Encephalopathy and septic shock secondary to fungal peritonitis and Pneumonia see ID recommendations Subjective Date/time seen: 10/31/19 18:30 Interval history: 78-year-old male with history of end-stage renal disease on peritoneal dialysis presented emergency department had a cardiac arrest ROSC after 1 round of epinephrine per protocol ROSC, with shortness of breath and hypoxic patient was intubated currently on vent, patient may have aspirated pneumonia, patient in septic shock and on pressor, patient being treated with Levaquin, vancomycin and Flagyl, discussed with pole framer machine prognosis is poor we appreciate pole framer machine, patient is seen by Dr. Aguilar nephrology for peritoneal dial
[2019-10-31 19:23] LABS: Glucose Point of Care 146 (65-105)
[2019-10-31 23:53] LABS: Glucose Point of Care 186 (65-105)
[2019-11-01] VITALS (26 sets, daily range): BP systolic 88–134; BP diastolic 45–77; PULSE 101–122; RESP 20–34; TEMP 36.8–37.5; O2SAT 92–100
[2019-11-01] MEDS: metroNIDAZOLE 500 MG/ISO 100ML 500 MG/100 ML BAG 100 MG IVPB ×3 (06:05→18:51)
[2019-11-01 06:06] LABS: Glucose Point of Care 228 (65-105)
[2019-11-01] MEDS: CENTRAL LINE FLUSH 10 ML IV PUSH ×2 (06:06→20:05)
[2019-11-01] MEDS: INSULIN ASPART (*BKC) 100 UNITS/ML SUB-Q ×3 (06:07→18:52)
[2019-11-01] MEDS: LEVOTHYROXINE SODIUM 75 MCG TABLET PO (06:07)
[2019-11-01 06:29] LABS: Hematocrit 27.1 % (42.0-52.0); Hemoglobin 8.3 g/dL (14.0-18.0); Mean Corpuscular HGB Conc 30.6 g/dl (32-36); Mean Corpuscular Hemoglobin 33.1 pg (26-34); Mean Platelet Volume 10.9 fl (7.4-10.4); Platelet Count Result 463 k/mm3 (150-375); Red Blood Count 2.51 M/mm3 (4.6-6.20); White Blood Count 17.9 K/mm3 (4.5-10.0)
[2019-11-01 06:45] LABS: Alanine Aminotransferase 24 U/L (4-50); Albumin Level 1.9 g/dL (3.5-5.1); Alkaline Phosphatase 420 U/L (38-126); Anion Gap 8 mmol/L (8-16); Aspartate Amino Transferase 85 U/L (17-59); Bilirubin,Total 0.4 mg/dL (0.2-1.3); Blood Urea Nitrogen 25 mg/dL (9-20); Calcium 6.5 mg/dL (8.4-10.2); Carbon Dioxide 27 mmol/L (22-30); Chloride 99 mmol/L (98-107); Estimated CRCL calculation 20 ml/min; Estimated Glomerular Filt Rate 26; Glucose 233 mg/dL (75-110); Magnesium 1.8 mg/dL (1.6-2.3); Potassium 3.7 mmol/L (3.4-5.0); Sodium 134 mmol/L (137-145)
--- NOTE | 2019-11-01 07:18 | PM.PNGS ---
Progress Note: A&P Assessment and Plan (1) Peritoneal dialysis catheter infection: Code(s): T85.71XA - Infection and inflammatory reaction due to peritoneal dialysis catheter, initial encounter Status: Acute Assessment and Plan: PD catheter removed on October 20. SILVA drain in LLQ still showing some greyish, serosanguineous fluid. This has been consistently draining 10 - 20 cc/day for the laast few days and once almost nothing is coming out I will remove it. The new LUQ one had only about 15 cc out for the last 24 hours or since his OR on Saturday. Peritoneal fluid cultures have show yeast, Linda albicans. pt on Fluconazole. (2) Severe sepsis: Code(s): A41.9 - Sepsis, unspecified organism; R65.20 - Severe sepsis without septic shock Status: Acute Assessment and Plan: Fungal peritonitis, aspiration pneumonitis, on antifungal and anti-microbial therapy. Remains on mechanical ventilator. (3) Peritonitis: Onset Date: ~10/2019 Code(s): K65.9 - Peritonitis, unspecified Status: Acute Assessment and Plan: Should improve with peritoneal dialysis catheter removed. Continue antifungal treatment. (4) ESRD (end stage renal disease) on dialysis: Code(s): N18.6 - End stage renal disease; Z99.2 - Dependence on renal dialysis Status: Acute Assessment and Plan: Patient receiving Hemodialysis via right IJ tunneled central venous catheter. Additional Plan Will plan to follow output of the remining 2 SILVA drains. (Now about 35 cc on the LLQ drain for last 24 hours). Most likely will leave the this one in until there is almost no output. Patient currently on Fluconazoe for an antifungal. Subjective Subjective Date/Time Seen: 11/01/19 07:18 Post Op day: 2 (and POD#11 s/p removal of PD catheter for peritonitis) Interval history: ICU nurse reports patient less responsive than yesterday. Has had some respiratory issues and his heart rate is been above 100 for a while. He has been tolerating the tube feedings okay through the G-tube. Residuals checked through the NG tube have been minimal to none. His tube feeding is up to the goal rate of 40 cc/hour of nephro. Nurses report no problems with the incisions and he did have a bowel movement both yesterday and today. Review of Systems Review of Systems: ROS unobtainable: Yes unobtainable due to endotracheal tube, unobtainable due to medical condition and unobtainable due to mental status Exam Const: General: comfortable, no acute distress, alert, awake, ill appearing chronically and tired appearing Nutritional Appearance: average body habitus Limitations: no limitations Other: Appears comfortable on the ventilator during dialysis. Eyes: General: appearance normal, both eyes and all related structures Sclera: sclerae normal EOM: EOMs intact bilaterally Neck: Neck: normal visual inspection, full ROM, no JVD and other ( right IJ tunneled dialysis catheter dry and intact.) Lymphatic: lymphadenopathy not noted Other: Incisions on right neck clean and dry. Triple lumen central line on the left without signs of purulent exudate. GI: Inspection: normal to inspection, incision ( Serosanguineous fluid from each SILVA drain, dressings dry.), scar and no visible herniation Auscultation: normal bowel sounds and Hypoactive bowel sounds present Rectal Exam: deferred Other: Themidline incision site is without significant drainage on the dressing. Dressing change with his ICU nurse today. Staple line intact without signs of drainage. Minimal if any drainage around the G-tube site. 40 cc out the left upper quadrant SILVA drain in the last 24 hours. Only 35 cc out the left lower quadrant SILVA drain last 24 hours. Minimal drainage from the old drain site in the right lower quadrant which is now just dressed with a gauze dressing. : Other: Weems catheter has been out now for several days. Urinary Catheter: Ur
--- NOTE | 2019-11-01 07:45 | WPDINTPN ---
Progress Note: A&P Assessment and Plan (1) Severe sepsis: Code(s): A41.9 - Sepsis, unspecified organism; R65.20 - Severe sepsis without septic shock Status: Acute Assessment and Plan: and septic shock secondary to fungal peritonitis and PNA - OFF LEVOPHED since 2:00 a.m. on 10/16/2019 - peritoneal cultures growing Yeast - continue IV metronidazole and fluconazole per infectious disease - now off of antibacterials - CT scan of the abdomen and pelvis on 10/16 showed interval progression of patchy bilateral airspace disease, compatible pneumonia. Bilateral pleural effusions right greater than left moderate ascites which appears loculated the left upper abdomen, cannot exclude peritonitis, abdominal wall thickening suspicious for cystitis. peritoneal dialysis catheter present in the pelvis - 10/19/2019 peritoneal fluid Gram stain , no organism seen - 10/19/2019 peritoneal fluid culture, growing Linda albicans - 10/18/2019 blood cultures negative x2 - 10/21/2019 repeat peritoneal cultures and peritoneal catheter cultures growing Linda albicans (2) Peritonitis: Onset Date: ~10/2019 Code(s): K65.9 - Peritonitis, unspecified Status: Acute Assessment and Plan: Linda peritnoitis - status post removal of peritoneal dialysis catheter on 10/21/2019, Catheter and peritoneal fluid sent for culture - SILVA drains x2 draining minimal amount of serosanguineous fluid, surgery following the patient - approx 5 mL output from each drain overnight - continue IV fluconazole per infectious disease (3) Acute respiratory failure: Code(s): J96.00 - Acute respiratory failure, unspecified whether with hypoxia or hypercapnia Status: Acute Assessment and Plan: - patient on mechanical ventilation - patient was tried on ASV mode yesterday had high peak pressures and respiratory rate. Was switched back to CMV and was given some fentanyl which helped and resolved his tachypnea and high peak pressures.. - patient now status post tracheostomy (4) Aspiration pneumonia: Code(s): J69.0 - Pneumonitis due to inhalation of food and vomit Status: Acute Assessment and Plan: completed course of antibiotics (5) Encephalopathy: Code(s): G93.40 - Encephalopathy, unspecified Status: Acute Assessment and Plan: - gradually improving - continue to hold sedation - encephalopathy likely multifactorial related to metabolic /uremic encephalopathy, infectious encephalopathy, medication related - neurology has been consulted and appreciate their evaluation and recommendations - EEG was done on 10/20/2019 and discussed with Neurology, EEG had significant slowing, likely related to severe encephalopathy. No epileptiform discharges were seen - patient did have a CT scan of the brain on 10/18/2019: was negative for any acute intracranial pathology (6) Cardiorespiratory arrest: Code(s): I46.9 - Cardiac arrest, cause unspecified Status: Acute Assessment and Plan: PEA arrest likely due aspiration,ROSC after 1 round of epinephrine - post arrest pt was following commands and so did not require hypothermia protocol - trops elevated to 0.40 likely due to cardiac arrest and renal failure (7) Colitis: Code(s): K52.9 - Noninfective gastroenteritis and colitis, unspecified Status: Acute Assessment and Plan: RESOLVED - patient presented with abdominal pain, nausea, vomiting and diarrhea, CT scan of the abdomen and pelvis on 10/13/2019 showed sigmoid colon wall thickening is consistent with colitis. Repeat CT abdomen pelvis on 10/17/2019 did not show any evidence of mesenteric ischemia. He does have ascites and 1 pocket of ascites seems to be loculated, possible peritonitis, bladder wall thickening suspicion for cystitis - continue antibiotics as above - OFF TPN - tube feeds on hold for PEG tube placement will resume as p
[2019-11-01] MEDS: ACIDOPHILUS/BULGARICUS CHEWABLE TABLET 1 TABLET PO (08:40)
[2019-11-01] MEDS: PANTOPRAZOLE SODIUM IV 40 MG VIAL IV PUSH ×2 (08:40→20:05)
[2019-11-01] MEDS: PRAVASTATIN SODIUM 20 MG TABLET 80 MG PO (08:40)
[2019-11-01] MEDS: ASPIRIN 81 MG ENTERIC TABLET PO (08:40)
[2019-11-01] MEDS: FLUCONAZOLE 200 MG/NACL 100 ML 200 MG/100 ML BAG 100 MG IVPB (08:41)
[2019-11-01] MEDS: FLUTICASONE PROPIONATE 0.05% NA SPR 16 GM BTL (*BKC) 2 SPRAY NASAL (08:41)
[2019-11-01] MEDS: HEPARIN SODIUM 5,000 UNITS/ML VIAL 5000 UNITS SUB-Q ×2 (08:41→20:04)
--- NOTE | 2019-11-01 09:13 | PM.PNNEP ---
Progress Note: A&P Assessment and Plan (1) ESRD (end stage renal disease) on dialysis: Code(s): N18.6 - End stage renal disease; Z99.2 - Dependence on renal dialysis Status: Acute Assessment and Plan: will get another hemodialysis tomorrow. (2) Peritonitis (acute) generalized: Code(s): K65.0 - Generalized (acute) peritonitis Status: Acute Assessment and Plan: cultures growing yeast s/p PD catheter removal and washout drains in place On micofungin Dr Rowe on the case (3) Hyponatremia: Onset Date: Unknown Code(s): E87.1 - Hypo-osmolality and hyponatremia Status: Acute Assessment and Plan: partly due to ESRD slow improvent with hemodialysis now in the mid 130s (4) Cardiorespiratory arrest: Code(s): I46.9 - Cardiac arrest, cause unspecified Status: Acute Assessment and Plan: presumably precipitated by aspiration remains on mechanical ventilation (5) Aspiration pneumonia: Code(s): J69.0 - Pneumonitis due to inhalation of food and vomit Status: Acute Assessment and Plan: on antibiotics intubated and on mechanical ventilation trach is in Infectious Disease following the patient (6) Encephalopathy: Code(s): G93.40 - Encephalopathy, unspecified Status: Acute Assessment and Plan: some improvement noted EEG results noted continue supportive care Subjective Date/time seen: 11/01/19 09:13 Interval history: patient is Sleepy comfortable on the vient. He just got pain meds. Review of Systems Review of Systems: ROS unobtainable: Yes unobtainable due to medical condition Exam Narrative: Exam Narrative: General: WD/WN male - intubated Heart: normal S1 and S2; no rub Lungs: crackles at bases and diminished breath sonds Abdomen: soft, nontender, nondistended, positive bowel sounds Extremities: no cyanosis or clubbing; edema in upper/lower extremities as well as abdominal wall Skin: no rash Objective Data Vital Signs Vital Signs: Vital Signs - 24 hr 10/31/19 10:00 10/31/19 11:25 10/31/19 12:00 Temperature 37.1 C Pulse Rate 110 H 103 H 117 H Respiratory Rate 22 H 23 H Blood Pressure 104/53 L 120/67 Pulse Oximetry 95 90 100 10/31/19 13:48 10/31/19 14:00 10/31/19 16:00 Temperature 37.1 C Pulse Rate 113 H 115 H 115 H Respiratory Rate 26 H 28 H Blood Pressure 138/63 105/79 Pulse Oximetry 100 100 94 10/31/19 16:55 10/31/19 18:00 10/31/19 19:40 Temperature 37.5 C Pulse Rate 118 H 112 H 120 H Respiratory Rate 29 H Blood Pressure 118/53 L Pulse Oximetry 96 98 97 10/31/19 20:00 10/31/19 21:57 10/31/19 22:00 Temperature 37.1 C Pulse Rate 113 H 112 H 115 H Respiratory Rate 26 H 29 H 27 H Blood Pressure 116/44 L 109/53 L 109/53 L Pulse Oximetry 100 99 99 10/31/19 23:30 10/31/19 23:37 10/31/19 23:55 Temperature 36.9 C Pulse Rate 110 H 119 H Respiratory Rate 31 H Blood Pressure 91/54 L Pulse Oximetry 98 97 98 11/01/19 00:00 11/01/19 01:57 11/01/19 01:58 Temperature Pulse Rate 115 H 113 H 118 H Respiratory Rate 22 H Blood Pressure 91/45 L Pulse Oximetry 100 11/01/19 02:50 11/01/19 03:40 11/01/19 04:00 Temperature 37.5 C Pulse Rate 112 H 110 H Respiratory Rate 25 H Blood Pressure 100/50 L Pulse Oximetry 97 98 100 11/01/19 05:30 11/01/19 06:00 11/01/19 07:28 Temperature Pulse Rate 108 H 112 H 102 H Respiratory Rate 29 H 24 H Blood Pressure 115/55 L Pulse Oximetry 100 98 92 11/01/19 08:00 11/01/19 08:14 Temperature 36.8 C Pulse Rate 108 H 105 H Respiratory Rate 29 H Blood Pressure 105/53 L Pulse Oximetry 98 94 Intake/Output Intake/Output: Intake & Output 10/29/19 10/30/19 10/31/19 11/01/19 23:59 23:59 23:59 23:59 Intake Total 1346 1092 590 956 Output Total 28 1035 255 10 Balance 1318 57 335 946 Meds/Results Medications: Active Me
[2019-11-01] MEDS: SILVERGEL (ELTA) 45 ML 1 APPLIC TOPICAL (10:18)
[2019-11-01 11:17] LABS: Glucose Point of Care 255 (65-105)
[2019-11-01 11:17] LABS: Glucose Point of Care 258 (65-105)
--- NOTE | 2019-11-01 13:34 | PCRCNOTE ---
ABG was ordered or [place] at 12:58. I was unable to obtain with a radial stick. Meera Watkins was unable to obtain with a brachial stick using doppler. Dr. Lawler was informed and said it was OK not to obtain.
[2019-11-01 18:50] LABS: Glucose Point of Care 290 (65-105)
[2019-11-02] VITALS (40 sets, daily range): BP systolic 87–145; BP diastolic 42–89; PULSE 56–116; RESP 13–36; TEMP 36.9–37.5; O2SAT 93–100
[2019-11-02 00:29] LABS: Glucose Point of Care 286 (65-105)
[2019-11-02] MEDS: metroNIDAZOLE 500 MG/ISO 100ML 500 MG/100 ML BAG 100 MG IVPB ×4 (00:30→17:04)
[2019-11-02] MEDS: INSULIN ASPART (*BKC) 100 UNITS/ML SUB-Q ×2 (00:30→05:00)
[2019-11-02 03:57] LABS: Alveolar/Arterial O2 Gradient 105.3 mmHg; Base Excess ABG -0.6 mEq/l (+/-2.0); Fractional Inspired Oxygen 30 %; HCO3 ABG 22.4 mEq/l (22.0-26.0); Oxygen Content ABG 15.4 %vol (16.0-22.0); Oxygen Saturation ABG 95.4 % (95.0-100.0); Oxyhemoglobin 93.2 % THb (90.0-100.0); PCO2 ABG 31.6 mmHg (35.0-45.0); PO2 ABG 71.5 mmHg (80.0-100.0); PO2 FiO2 Ratio Arterial Blood 2.38 %; Total Hemoglobin 11.7 g/dL (12.0-18.0); pH ABG 7.469 (7.350-7.450)
[2019-11-02 03:58] LABS: Device VENTILATOR; Site Drawn RIGHT BRACHIAL
[2019-11-02 03:59] LABS: Arterial Blood Gas PEEP 5 cmH2O; Arterial Blood Gas Tidal Volume 300 ml; Arterial Blood Gas Vent Mode CMV; Arterial Blood Gas Ventilator rate 18 /MIN
[2019-11-02 04:35] LABS: Basophils Absolute Auto 0.2 K/mm3 (0.0-0.1); Basophils Percent Auto 1.1 % (0.2-1.2); Eosinophils Absolute Auto 0.2 K/mm3 (0-0.3); Eosinophils Percent Auto 1.3 % (0-4.4); Hematocrit 27.2 % (42.0-52.0); Hemoglobin 8.4 g/dL (14.0-18.0); Immature Granulocyte Absolute 0.37 K/mm3 (0.00-0.031); Immature Granulocyte Percent A 2.1 % (0-0.5); Lymphocytes Absolute Auto 2.53 K/mm3 (0.9-3.2); Lymphocytes Percent Auto 14.6 % (18.3-44.2); Mean Corpuscular HGB Conc 30.9 g/dl (32-36); Mean Corpuscular Hemoglobin 33.3 pg (26-34); Mean Corpuscular Volume 107.9 fl (80-100); Mean Platelet Volume 10.7 fl (7.4-10.4); Monocytes Absolute Auto 1.3 K/mm3 (0.1-0.6); Monocytes Percent Auto 7.6 % (2.6-8.5); Neutrophils Absolute Auto 12.7 K/mm3 (1.3-6.7); Neutrophils Percent Auto 73.3 % (45.5-73.1); Platelet Count Result 456 k/mm3 (150-375); Red Blood Count 2.52 M/mm3 (4.6-6.20); Red Cell Distribution Width 22.5 % (11.5-14.5); White Blood Count 17.4 K/mm3 (4.5-10.0)
[2019-11-02 04:48] LABS: Alanine Aminotransferase 22 U/L (4-50); Alkaline Phosphatase 407 U/L (38-126); Anion Gap 10 mmol/L (8-16); Aspartate Amino Transferase 55 U/L (17-59); Bilirubin,Total 0.4 mg/dL (0.2-1.3); Blood Urea Nitrogen 34 mg/dL (9-20); Calcium 6.6 mg/dL (8.4-10.2); Carbon Dioxide 23 mmol/L (22-30); Chloride 101 mmol/L (98-107); Estimated CRCL calculation 15 ml/min; Estimated Glomerular Filt Rate 20; Glucose 275 mg/dL (75-110); Magnesium 1.9 mg/dL (1.6-2.3); Phosphorus 3.4 mg/dL (2.5-4.5); Potassium 3.5 mmol/L (3.4-5.0); Sodium 134 mmol/L (137-145)
[2019-11-02] MEDS: CENTRAL LINE FLUSH 10 ML IV PUSH ×3 (05:01→20:38)
[2019-11-02 05:02] LABS: Glucose Point of Care 276 (65-105)
[2019-11-02] MEDS: LEVOTHYROXINE SODIUM 75 MCG TABLET PO (05:02)
[2019-11-02 05:44] LABS: Platelet Estimate Adequate (Adequate)
[2019-11-02 05:45] LABS: Macrocytosis 1+ (NORMAL); Stomatocytes 1+ (NORMAL)
[2019-11-02] MEDS: FLUCONAZOLE 200 MG/NACL 100 ML 200 MG/100 ML BAG 100 MG IVPB ×2 (07:39→16:02)
[2019-11-02] MEDS: PANTOPRAZOLE SODIUM IV 40 MG VIAL IV PUSH ×2 (07:43→20:38)
[2019-11-02] MEDS: PRAVASTATIN SODIUM 20 MG TABLET 80 MG PO (07:43)
[2019-11-02] MEDS: ASPIRIN 81 MG ENTERIC TABLET PO (07:44)
[2019-11-02] MEDS: HEPARIN SODIUM 5,000 UNITS/ML VIAL 5000 UNITS SUB-Q ×2 (07:44→20:38)
[2019-11-02] MEDS: ACIDOPHILUS/BULGARICUS CHEWABLE TABLET 1 TABLET PO (07:44)
[2019-11-02] MEDS: SILVERGEL (ELTA) 45 ML 1 APPLIC TOPICAL (07:45)
[2019-11-02] MEDS: INSULIN GLARGINE (*BKC) 100 UNITS/ML 16 UNITS SUB-Q (07:47)
[2019-11-02] MEDS: FLUTICASONE PROPIONATE 0.05% NA SPR 16 GM BTL (*BKC) 2 SPRAY NASAL (07:47)
--- NOTE | 2019-11-02 08:15 | WPDINFPN2 ---
Progress Note: A&P Assessment and Plan (1) Leukocytosis: Onset Date: ~09/2019 Code(s): D72.829 - Elevated white blood cell count, unspecified Status: Acute Assessment and Plan: 1. Leukocytosis, due to fungal peritonitis from his catheter. WBC still in mid teens. 2. Colitis by CT 3. CRF on HD now 4. PCN intolerance 5. Pleural effusion, not infected by culture REC Fluconazole # 12 (antifungal #13). POD # 12 cath removal. Following WBC over time. Adjust dosing to be given after HD. Subjective Date/time seen: 11/02/19 08:15 Interval history: extubated, non verbal but has been awake Exam Narrative: Exam Narrative: afebrile Const: General: no acute distress Resp: Effort & Inspection: normal respiratory effort Auscultation: clear to auscultation bilaterally and diminished lung sounds Cardio: Rate: tachycardic Rhythm: regular rhythm Heart sounds: no gallops and no murmurs GI: Inspection: distended GI Palp: Yes Firmness to palpation present (GI), No Tenderness to palpation present (GI) and No Guarding due to palpation present (GI) Percussion: Yes dullness to percussion Skin: General skin exam: normal color and no rashes or lesions noted Objective Data Vital Signs Vital Signs: Vital Signs - 24 hr 11/01/19 10:00 11/01/19 11:19 11/01/19 11:45 Temperature Pulse Rate 104 H 112 H 115 H Respiratory Rate 25 H 34 H Blood Pressure 94/56 L Pulse Oximetry 98 100 97 11/01/19 11:59 11/01/19 12:00 11/01/19 13:48 Temperature 37.2 C Pulse Rate 122 H 121 H 113 H Respiratory Rate 32 H Blood Pressure 88/49 L Pulse Oximetry 96 97 11/01/19 14:00 11/01/19 14:55 11/01/19 16:00 Temperature 36.9 C Pulse Rate 113 H 113 H 117 H Respiratory Rate 34 H 29 H Blood Pressure 126/75 Pulse Oximetry 99 98 98 11/01/19 17:16 11/01/19 18:00 11/01/19 20:00 Temperature 37.1 C Pulse Rate 116 H 109 H 108 H Respiratory Rate 26 H 22 H Blood Pressure 134/69 117/77 Pulse Oximetry 99 100 100 11/01/19 20:24 11/01/19 22:00 11/01/19 23:18 Temperature Pulse Rate 111 H 110 H 107 H Respiratory Rate 20 Blood Pressure 134/74 Pulse Oximetry 100 100 100 11/02/19 00:00 11/02/19 01:51 11/02/19 02:00 Temperature 37.0 C Pulse Rate 110 H 116 H 107 H Respiratory Rate 22 H 18 Blood Pressure 133/68 121/62 Pulse Oximetry 99 98 100 11/02/19 04:00 11/02/19 04:01 11/02/19 06:00 Temperature 36.9 C Pulse Rate 109 H 110 H 114 H Respiratory Rate 20 20 Blood Pressure 142/75 H 145/62 H Pulse Oximetry 98 99 100 Intake/Output Intake/Output: Intake & Output 10/30/19 10/31/19 11/01/19 11/02/19 23:59 23:59 23:59 23:59 Intake Total 7491 816 2770 692 Output Total 1035 255 15 5 Balance 57 335 1824 687 Meds/Results Medications: Active Medications Generic Name Dose Route Start Last Admin Trade Name Freq PRN Reason Stop Dose Admin Albuterol 2.5 mg 10/29/19 11:48 Albuterol Sulf Neb 2.5mg/0.5ml INHALATION Q4HRT PRN Wheezing or high peak pressure Aspirin 81 mg 10/28/19 12:00 11/02/19 07:44 Aspirin Ec PO 81 mg QAM JOHNATHAN Administration Bisacodyl 10 mg 10/14/19 17:03 10/16/19 17:51 Dulcolax Suppository RECTAL 10 mg QAM PRN Administration Constipation Dextrose 12.5 gm 10/31/19 09:03 Dextrose 50% Syringe IV PUSH PRN PRN Hypoglycemia Protocol Fentanyl Citrate 50 mcg 10/31/19 21:49 11/01/19 12:47 Sublimaze IV PUSH 25 mcg Q1H PRN Administration Pain Rated 7-10 Fluticasone Propionate 2 spray 10/16/19 09:00 11/02/19 07:47 Flonase 0.05% Nasal [place] NASAL 2 spray DAILY JOHNATHAN Administration Glucagon 1 mg 10/31/19 09:03 Glucagon For Inj IM PRN PRN Hypoglycemia Protocol Glucose 15 gm 10/31/19 09:03 Glutose 15 PO PRN PRN Hypoglycemia Protocol Heparin Sodium (Porcine) 5,000 units 11/01/19 21:00 11/02/19 07:44 Heparin Sodium SUB-Q 5,000 units
[2019-11-02 08:24] LABS: Glucose Point of Care 267 (65-105)
--- NOTE | 2019-11-02 08:26 | PM.PNNEP ---
Progress Note: A&P Assessment and Plan (1) ESRD (end stage renal disease) on dialysis: Code(s): N18.6 - End stage renal disease; Z99.2 - Dependence on renal dialysis Status: Acute Assessment and Plan: hemodialysis due today he has some fluid on board. Has some scrotal swelling as well as presacral edema. Will take extra fluid off today if possible. (2) Peritonitis (acute) generalized: Code(s): K65.0 - Generalized (acute) peritonitis Status: Acute Assessment and Plan: cultures growing yeast s/p PD catheter removal and washout On micofungin Dr Rowe on the case (3) Hyponatremia: Onset Date: Unknown Code(s): E87.1 - Hypo-osmolality and hyponatremia Status: Acute Assessment and Plan: partly due to ESRD slow improvent with hemodialysis now in the mid 130s (4) Cardiorespiratory arrest: Code(s): I46.9 - Cardiac arrest, cause unspecified Status: Acute Assessment and Plan: presumably precipitated by aspiration remains on mechanical ventilation (5) Aspiration pneumonia: Code(s): J69.0 - Pneumonitis due to inhalation of food and vomit Status: Acute Assessment and Plan: on antibiotics intubated and on mechanical ventilation trach is in Infectious Disease following the patient he may be transferred to an LTAC soon. (6) Encephalopathy: Code(s): G93.40 - Encephalopathy, unspecified Status: Acute Assessment and Plan: some improvement noted continue supportive care Subjective Date/time seen: 11/02/19 08:26 Interval history: patient is on the ventilator. Getting ready to start dialysis. He just got pain meds. Review of Systems Review of Systems: ROS unobtainable: Yes unobtainable due to endotracheal tube and unobtainable due to medical condition Exam Narrative: Exam Narrative: General: WD/WN male - intubated Heart: normal S1 and S2; no rub Lungs: crackles at bases and diminished breath sonds Abdomen: soft, nontender, nondistended, positive bowel sounds Extremities: no cyanosis or clubbing; 1 to 2+ edema Skin: no rash Or subcu nodules Objective Data Vital Signs Vital Signs: Vital Signs - 24 hr 11/01/19 10:00 11/01/19 11:19 11/01/19 11:45 Temperature Pulse Rate 104 H 112 H 115 H Respiratory Rate 25 H 34 H Blood Pressure 94/56 L Pulse Oximetry 98 100 97 11/01/19 11:59 11/01/19 12:00 11/01/19 13:48 Temperature 37.2 C Pulse Rate 122 H 121 H 113 H Respiratory Rate 32 H Blood Pressure 88/49 L Pulse Oximetry 96 97 11/01/19 14:00 11/01/19 14:55 11/01/19 16:00 Temperature 36.9 C Pulse Rate 113 H 113 H 117 H Respiratory Rate 34 H 29 H Blood Pressure 126/75 Pulse Oximetry 99 98 98 11/01/19 17:16 11/01/19 18:00 11/01/19 20:00 Temperature 37.1 C Pulse Rate 116 H 109 H 108 H Respiratory Rate 26 H 22 H Blood Pressure 134/69 117/77 Pulse Oximetry 99 100 100 11/01/19 20:24 11/01/19 22:00 11/01/19 23:18 Temperature Pulse Rate 111 H 110 H 107 H Respiratory Rate 20 Blood Pressure 134/74 Pulse Oximetry 100 100 100 11/02/19 00:00 11/02/19 01:51 11/02/19 02:00 Temperature 37.0 C Pulse Rate 110 H 116 H 107 H Respiratory Rate 22 H 18 Blood Pressure 133/68 121/62 Pulse Oximetry 99 98 100 11/02/19 04:00 11/02/19 04:01 11/02/19 06:00 Temperature 36.9 C Pulse Rate 109 H 110 H 114 H Respiratory Rate 20 20 Blood Pressure 142/75 H 145/62 H Pulse Oximetry 98 99 100 Intake/Output Intake/Output: Intake & Output 10/30/19 10/31/19 11/01/19 11/02/19 23:59 23:59 23:59 23:59 Intake Total 1637 799 4222 692 Output Total 1035 255 15 5 Balance 57 335 1824 687 Meds/Results Medications: Active Medications Generic Name Dose Route Start Last Admin Trade Name Freq PRN Reason Stop Dose Admin Albuterol 2.5 mg 10/29/19 11:48 Albuterol Sulf Neb 2.5mg/0.5ml INHALATION
--- NOTE | 2019-11-02 08:46 | WPDINTPN ---
Progress Note: A&P Assessment and Plan (1) Severe sepsis: Code(s): A41.9 - Sepsis, unspecified organism; R65.20 - Severe sepsis without septic shock Status: Acute Assessment and Plan: septic shock secondary to fungal peritonitis and PNA - OFF LEVOPHED since 2:00 a.m. on 10/16/2019 - peritoneal cultures growing Yeast - continue IV metronidazole and fluconazole per infectious disease - now off all antibacterials - CT scan of the abdomen and pelvis on 10/16 showed interval progression of patchy bilateral airspace disease, compatible pneumonia. Bilateral pleural effusions right greater than left moderate ascites which appears loculated the left upper abdomen, cannot exclude peritonitis, abdominal wall thickening suspicious for cystitis. peritoneal dialysis catheter present in the pelvis - 10/19/2019 peritoneal fluid Gram stain , no organism seen - 10/19/2019 peritoneal fluid culture, growing Linda albicans - 10/18/2019 blood cultures negative x2 - 10/21/2019 repeat peritoneal cultures and peritoneal catheter cultures growing Linda albicans (2) Peritonitis: Onset Date: ~10/2019 Code(s): K65.9 - Peritonitis, unspecified Status: Acute Assessment and Plan: Linda peritonitis - status post removal of peritoneal dialysis catheter on 10/21/2019, Catheter and peritoneal fluid sent for culture - SILVA drains x2 draining minimal amount of serosanguineous fluid, surgery following the patient - continue IV fluconazole per infectious disease (3) Acute respiratory failure: Code(s): J96.00 - Acute respiratory failure, unspecified whether with hypoxia or hypercapnia Status: Acute Assessment and Plan: - patient on mechanical ventilation - patient did not tolerating ASV mode as he had had elevated peak pressures. Currently on CMV mode of ventilation. - patient now status post tracheostomy on 10/30/2019 (4) Aspiration pneumonia: Code(s): J69.0 - Pneumonitis due to inhalation of food and vomit Status: Acute Assessment and Plan: completed course of antibiotics (5) Encephalopathy: Code(s): G93.40 - Encephalopathy, unspecified Status: Acute Assessment and Plan: - gradually improving - continue to hold sedation - encephalopathy likely multifactorial related to metabolic /uremic encephalopathy, infectious encephalopathy, medication related - neurology has been consulted and appreciate their evaluation and recommendations - EEG was done on 10/20/2019 and discussed with Neurology, EEG had significant slowing, likely related to severe encephalopathy. No epileptiform discharges were seen - patient did have a CT scan of the brain on 10/18/2019: was negative for any acute intracranial pathology (6) Cardiorespiratory arrest: Code(s): I46.9 - Cardiac arrest, cause unspecified Status: Acute Assessment and Plan: PEA arrest likely due aspiration,ROSC after 1 round of epinephrine - post arrest pt was following commands and so did not require hypothermia protocol - trops elevated to 0.40 likely due to cardiac arrest and renal failure (7) Colitis: Code(s): K52.9 - Noninfective gastroenteritis and colitis, unspecified Status: Acute Assessment and Plan: RESOLVED - patient presented with abdominal pain, nausea, vomiting and diarrhea, CT scan of the abdomen and pelvis on 10/13/2019 showed sigmoid colon wall thickening is consistent with colitis. Repeat CT abdomen pelvis on 10/17/2019 did not show any evidence of mesenteric ischemia. He does have ascites and 1 pocket of ascites seems to be loculated, possible peritonitis, bladder wall thickening suspicion for cystitis - continue antibiotics as above - OFF TPN - tube feeds on hold for PEG tube placement will resume as per surgery recommendations after the procedure - 10/28 by GI was unable to place PEG tube due to adhesions - 10/29 - patient
[2019-11-02] MEDS: SODIUM CHLORIDE 0.9% IV 2,000 ML 999 ML (10:55)
[2019-11-02] MEDS: HEPARIN SODIUM 1,000 UNITS/ML VIAL 6000 UNITS (10:55)
--- NOTE | 2019-11-02 11:00 | PCPTNOTE ---
The patient treatment was not able to be completed this A.M. due to receiving dialysis. Will plan to continue treatment per plan of care.
[2019-11-02 11:20] LABS: Glucose Point of Care 152 (65-105)
--- NOTE | 2019-11-02 12:14 | PCDIET ---
Nutrition Follow-Up Complete: Nutrition Diagnosis: Inadequate oral intake related to oral intubation as evidenced by NPO status. Nutrition Goal: Patient to meet estimated nutritional needs. Goal in progress. Tube feedings resumed at 40mL/hr Nepro and have been well tolerated. MD order for protein supplements to promote healing. Recommend TID Pro-Stat for total of 1884kcal and 116g (1.53g/kg) protein with tube feedings over 22 hours/day. Last recorded weight is 75.5 kg which is increased from last review. Having dialysis this morning. Bowel Motility: BM x 4 documented today. RN reports holding Dulcolax today. Labs Reviewed: Hgb (8.4), Hct (27.2), Glu (267), BUN (34), Cr (3.1), Na (134), Alb (2.0), Ade Ca (8.2) Meds Noted: Flagyl, Protonix, Miralax (prn), Fentanyl, Diflucan, Novolog, Lantus, Albumin, Dulcolax, Albuterol, Atrovent, Lactinex, Synthroid Additional Notes: Ulcers to coccyx, buttocks and feet. Multiple skin tears also noted. Nutrition Monitoring and Evaluation: Follow up every Saturday/Saturday days. Follow daily in ICU rounds.
--- NOTE | 2019-11-02 12:48 | PC.NURSE ---
Dialysis finished today @1230. Dialysis nurse states took of 2.5L. Vitals and patient are stable at this time.
--- NOTE | 2019-11-02 16:30 | PM.IMPN ---
Progress Note: A&P Assessment and Plan (1) Septic shock: Code(s): A41.9 - Sepsis, unspecified organism; R65.21 - Severe sepsis with septic shock Status: Deleted Assessment and Plan: 11/02/19 16:30 patient is 78-year-old male with history of end-stage renal disease on peritoneal dialysis presented emergency department had a cardiac arrest ROSC after 1 round of epinephrine per protocol ROSC, with shortness of breath and hypoxic patient was intubated currently on vent, patient may have aspirated pneumonia, patient in septic shock and on pressor, patient being treated with Levaquin, vancomycin and Flagyl, discussed with director of events prognosis is poor we appreciate director of events, patient is seen by Dr. Aguilar nephrology for peritoneal dialysis, Billing Control Clerk had spoken with patient's , she would like to keep full code and continue to treat the patient. septic shock resolved and patient is off Levophed, septic shock most likely secondary to aspiration pneumonia possibly peritonitis and treated with Flagyl cefepime and ceftazidime intraperitoneal by nephrology, patient is his leukocytosis etiology uncertain seen by Dr. Rowe and director of events, stopped all antibiotic and has started the patient vancomycin and aztreonam, meanwhile patient was seen by surgery and peritoneal dialysis catheter was removed and now patient is on hemodialysis, unable to wean the patient off the ventilator, patient had a trach on 10/29 as well as GI was unable to place PEG tube due to adhesions patient had open gastrostomy tube placed on 10/29, discussed with director of events, patient has very poor efforts, unable to to wean off ventilator prognosis is poor awaiting LTAC placement (2) Cardiorespiratory arrest: Code(s): I46.9 - Cardiac arrest, cause unspecified Status: Acute Assessment and Plan: Sp cardioarrest (3) Aspiration pneumonia: Code(s): J69.0 - Pneumonitis due to inhalation of food and vomit Status: Acute Assessment and Plan: Patient had aspirated resulting in pneumonia and septic shock secondary to fungal peritonitis and PNA See ID recommendations (4) Atrial fibrillation: Onset Date: ~09/2019 Code(s): I48.91 - Unspecified atrial fibrillation Status: Acute (5) Hyponatremia: Onset Date: Unknown Code(s): E87.1 - Hypo-osmolality and hyponatremia Status: Acute Assessment and Plan: Rate is controlled (6) Abnormal computed tomography of abdomen and pelvis: Code(s): R93.5 - Abnormal findings on diagnostic imaging of other abdominal regions, including retroperitoneum Status: Acute Assessment and Plan: Suspect peritonitis (7) Peritonitis (acute) generalized: Code(s): K65.0 - Generalized (acute) peritonitis Status: Acute Assessment and Plan: Patient on peritoneal dialysis,patient is being treated with antibiotics and septic shock secondary to fungal peritonitis and PNA See ID recommendations (8) Peritoneal dialysis catheter infection: Code(s): T85.71XA - Infection and inflammatory reaction due to peritoneal dialysis catheter, initial encounter Status: Acute Assessment and Plan: Septic shock secondary to fungal peritonitis and PNA, see IDrecommendations POD#11 s/p removal of PD catheter for peritonitis, now on hemodialysis (9) Encephalopathy: Code(s): G93.40 - Encephalopathy, unspecified Status: Acute Assessment and Plan: Encephalopathy and septic shock secondary to fungal peritonitis and Pneumonia see ID recommendations Subjective Date/time seen: 11/02/19 16:30 patient is 78-year-old male with history of end-stage renal disease on peritoneal dialysis presented emergency department had a cardiac arrest ROSC after 1 round of epinephrine per protocol ROSC, with shortness of breath and hypoxic patient was intubated currently on vent, patient may have aspirated pneumonia, p
[2019-11-02 17:06] LABS: Glucose Point of Care 166 (65-105)
--- NOTE | 2019-11-02 18:33 | PM.PNGS ---
Progress Note: A&P Assessment and Plan (1) Peritoneal dialysis catheter infection: Code(s): T85.71XA - Infection and inflammatory reaction due to peritoneal dialysis catheter, initial encounter Status: Acute Assessment and Plan: PD catheter removed on October 20. SILVA drain in LLQ still showing some greyish, serosanguineous fluid. This has been consistently draining 10 - 20 cc/day for the last few days and once almost nothing is coming out I will remove it. The new LUQ one had only about 5 cc out for the last 24 hours. Peritoneal fluid cultures have show yeast, Linda albicans. pt on Fluconazole. (2) Severe sepsis: Code(s): A41.9 - Sepsis, unspecified organism; R65.20 - Severe sepsis without septic shock Status: Acute Assessment and Plan: Fungal peritonitis, aspiration pneumonitis, on antifungal and anti-microbial therapy. Remains on mechanical ventilator. (3) Peritonitis: Onset Date: ~10/2019 Code(s): K65.9 - Peritonitis, unspecified Status: Acute Assessment and Plan: Should improve with peritoneal dialysis catheter removed. Continue antifungal treatment. (4) ESRD (end stage renal disease) on dialysis: Code(s): N18.6 - End stage renal disease; Z99.2 - Dependence on renal dialysis Status: Acute Assessment and Plan: Patient receiving Hemodialysis via right IJ tunneled central venous catheter. Additional Plan Will plan to follow output of the remining 2 SILVA drains. (Now about 15 cc on the LLQ drain for last 24 hours). Most likely will leave the this one in until there is almost no output. The drainage from the left upper quadrant SILVA drain seems to be slowing down significantly to with 1 recording of 0 for 12 hours the last 24. I may remove this drain tomorrow depending on the drainage amount. Patient currently on Fluconazoe for an antifungal. Subjective Subjective Date/Time Seen: 11/02/19 16:33 Patient lying in bed on the ventilator tracheostomy tube. He is opening his eyes today. Nurse states that he also spontaneously moved lifted his right arm today. She reports 3 bowel movements today. Tube feedings are going at goal rate without difficulties through the new G-tube. Review of Systems Review of Systems: ROS unobtainable: Yes unobtainable due to endotracheal tube, unobtainable due to medical condition and unobtainable due to mental status Exam HENMT: Head: normal to inspection, normocephalic and atraumatic Ears: hearing grossly normal bilaterally and external ears normal General nose exam: no epistaxis Mouth: Yes Normal oral and palatal mucosa present and Yes moist mucous membranes Other: Patient now has tracheostomy. Nurse reports no significant bleeding around the tracheostomy site overnight. Eyes: General: appearance normal, both eyes and all related structures Sclera: sclerae normal EOM: EOMs intact bilaterally Neck: Neck: normal visual inspection, full ROM, no JVD and other ( right IJ tunneled dialysis catheter dry and intact.) Lymphatic: lymphadenopathy not noted Other: Incisions on right neck clean and dry. Triple lumen central line on the left without signs of purulent exudate. Resp: Effort & Inspection: able to speak in complete sentences and no respiratory distress Auscultation: rhonchi right upper and diminished lung sounds (at bases) bilateral Other: Patient intubated and ventilated. Upper anterior lung findings fairly clear to auscultation bilaterally today. GI: Inspection: normal to inspection, incision ( Serosanguineous fluid from each SILVA drain, dressings dry.), scar and no visible herniation Auscultation: normal bowel sounds and Hypoactive bowel sounds present Rectal Exam: deferred Other: The midline incision site is without significant drainage on the dressing. Minimal if any drainage around the G-tube site. < 10 cc out the left upper quadrant SILVA drain in the last 24 hours. Only abou
[2019-11-03] VITALS (20 sets, daily range): BP systolic 104–136; BP diastolic 43–86; PULSE 96–123; RESP 18–30; TEMP 36.7–37.3; O2SAT 89–100
[2019-11-03 00:16] LABS: Glucose Point of Care 204 (65-105)
[2019-11-03] MEDS: metroNIDAZOLE 500 MG/ISO 100ML 500 MG/100 ML BAG 100 MG IVPB ×4 (00:51→18:06)
[2019-11-03] MEDS: INSULIN ASPART (*BKC) 100 UNITS/ML SUB-Q ×3 (00:51→18:18)
[2019-11-03 04:45] LABS: Basophils Absolute Auto 0.1 K/mm3 (0.0-0.1); Basophils Percent Auto 0.9 % (0.2-1.2); Eosinophils Absolute Auto 0.3 K/mm3 (0-0.3); Eosinophils Percent Auto 1.6 % (0-4.4); Hematocrit 27.2 % (42.0-52.0); Hemoglobin 8.3 g/dL (14.0-18.0); Immature Granulocyte Percent A 1.9 % (0-0.5); Lymphocytes Absolute Auto 2.31 K/mm3 (0.9-3.2); Lymphocytes Percent Auto 14.9 % (18.3-44.2); Mean Corpuscular HGB Conc 30.5 g/dl (32-36); Mean Corpuscular Hemoglobin 32.3 pg (26-34); Mean Corpuscular Volume 105.8 fl (80-100); Mean Platelet Volume 10.5 fl (7.4-10.4); Monocytes Absolute Auto 1.5 K/mm3 (0.1-0.6); Monocytes Percent Auto 9.4 % (2.6-8.5); Neutrophils Percent Auto 71.3 % (45.5-73.1); Platelet Count Result 448 k/mm3 (150-375); Red Blood Count 2.57 M/mm3 (4.6-6.20); Red Cell Distribution Width 21.9 % (11.5-14.5); White Blood Count 15.5 K/mm3 (4.5-10.0)
[2019-11-03 04:58] LABS: Alanine Aminotransferase 19 U/L (4-50); Albumin Level 1.9 g/dL (3.5-5.1); Alkaline Phosphatase 334 U/L (38-126); Anion Gap 5 mmol/L (8-16); Aspartate Amino Transferase 46 U/L (17-59); Bilirubin,Total 0.4 mg/dL (0.2-1.3); Blood Urea Nitrogen 25 mg/dL (9-20); Calcium 6.7 mg/dL (8.4-10.2); Carbon Dioxide 30 mmol/L (22-30); Chloride 98 mmol/L (98-107); Estimated CRCL calculation 21 ml/min; Estimated Glomerular Filt Rate 28; Glucose 179 mg/dL (75-110); Magnesium 1.7 mg/dL (1.6-2.3); Potassium 3.1 mmol/L (3.4-5.0); Sodium 133 mmol/L (137-145)
[2019-11-03] MEDS: CENTRAL LINE FLUSH 10 ML IV PUSH ×3 (05:30→20:10)
[2019-11-03] MEDS: LEVOTHYROXINE SODIUM 75 MCG TABLET PO (05:31)
[2019-11-03 05:33] LABS: Alveolar/Arterial O2 Gradient 79.3 mmHg; Base Excess ABG 3.9 mEq/l (+/-2.0); Carboxyhemoglobin 0.3 % THb (0-2.0); Fractional Inspired Oxygen 30 %; HCO3 ABG 27.1 mEq/l (22.0-26.0); Methemoglobin ABG 0.2 %THb (0-1.5); Oxygen Content ABG 15.8 %vol (16.0-22.0); Oxygen Saturation ABG 97.6 % (95.0-100.0); Oxyhemoglobin 96.3 % THb (90.0-100.0); PCO2 ABG 36.1 mmHg (35.0-45.0); PO2 ABG 92.2 mmHg (80.0-100.0); PO2 FiO2 Ratio Arterial Blood 3.07 %; Reduced Hemoglobin 3.2 %THb (0-5.0); Total Hemoglobin 11.6 g/dL (12.0-18.0); pH ABG 7.494 (7.350-7.450)
[2019-11-03 05:34] LABS: Arterial Blood Gas Vent Mode CMV; Arterial Blood Gas Ventilator rate 18 /MIN; Device VENTILATOR; Modified Allen's Test Pass; Site Drawn LEFT RADIAL
[2019-11-03 05:35] LABS: Arterial Blood Gas PEEP 5 cmH2O; Arterial Blood Gas Tidal Volume 300 ml
[2019-11-03] MEDS: FLUTICASONE PROPIONATE 0.05% NA SPR 16 GM BTL (*BKC) 2 SPRAY NASAL (08:20)
[2019-11-03] MEDS: HEPARIN SODIUM 5,000 UNITS/ML VIAL 5000 UNITS SUB-Q ×2 (08:20→20:08)
[2019-11-03] MEDS: ACIDOPHILUS/BULGARICUS CHEWABLE TABLET 1 TABLET PO (08:21)
[2019-11-03] MEDS: PRAVASTATIN SODIUM 20 MG TABLET 80 MG PO (08:21)
[2019-11-03] MEDS: PANTOPRAZOLE SODIUM IV 40 MG VIAL IV PUSH ×2 (08:21→20:08)
[2019-11-03] MEDS: ASPIRIN 81 MG ENTERIC TABLET PO (08:21)
[2019-11-03] MEDS: SILVERGEL (ELTA) 45 ML 1 APPLIC TOPICAL (08:22)
[2019-11-03] MEDS: INSULIN GLARGINE (*BKC) 100 UNITS/ML 16 UNITS SUB-Q (08:25)
--- NOTE | 2019-11-03 08:57 | P.PNNP_ITS ---
Progress Note: A&P Assessment and Plan (1) ESRD (end stage renal disease) on dialysis: Code(s): N18.6 - End stage renal disease; Z99.2 - Dependence on renal dialysis Status: Acute Assessment and Plan: * hemodialysis due tomorrow * he has some fluid on board. Has some scrotal swelling as well as presacral edema. Will take extra fluid off today if possible. * Potassium low. Will supplement (2) Peritonitis (acute) generalized: Code(s): K65.0 - Generalized (acute) peritonitis Status: Acute Assessment and Plan: * cultures growing yeast * s/p PD catheter removal and washout * On micofungin * Dr Rowe on the case (3) Hyponatremia: Onset Date: Unknown Code(s): E87.1 - Hypo-osmolality and hyponatremia Status: Acute Assessment and Plan: * partly due to ESRD * slow improvent with hemodialysis * now in the mid 130s (4) Cardiorespiratory arrest: Code(s): I46.9 - Cardiac arrest, cause unspecified Status: Acute Assessment and Plan: * presumably precipitated by aspiration * now has a tracheostomy * remains on mechanical ventilation (5) Aspiration pneumonia: Code(s): J69.0 - Pneumonitis due to inhalation of food and vomit Status: Acute Assessment and Plan: * on antibiotics * intubated and on mechanical ventilation * trach is in * Infectious Disease following the patient * he may be transferred to an LTAC soon. (6) Encephalopathy: Code(s): G93.40 - Encephalopathy, unspecified Status: Acute Assessment and Plan: * some improvement noted * continue supportive care Subjective Date/time seen: 11/03/19 08:57 Interval history: patient is on the ventilator. He is awake. Somewhat interactive. No complaints Review of Systems Cardiovascular: Cardiovascular: Reports no additional cardiovascular complaints Respiratory: Respiratory: Reports no additional respiratory complaints Gastrointestinal: Gastrointestinal: Reports no additional gastrointestinal complaints Genitourinary: Genitourinary: Reports no additional male genitourinary complaints Exam Narrative: Exam Narrative: General: WD/WN male - intubated Heart: normal S1 and S2; no rub or gallop Lungs: crackles at bases and diminished breath sonds Abdomen: soft, nontender, nondistended, positive bowel sounds Extremities: no cyanosis or clubbing; 1 to 2+ edema Skin: no rash Objective Data Vital Signs Vital Signs: Vital Signs - 24 hr 11/02/19 09:00 11/02/19 09:15 11/02/19 09:26 Temperature Pulse Rate 101 H 89 114 H Respiratory Rate Blood Pressure 111/88 100/68 Pulse Oximetry 100 11/02/19 09:30 11/02/19 09:45 11/02/19 10:00 Temperature Pulse Rate 62 74 114 H Respiratory Rate 32 H Blood Pressure 119/89 114/61 98/53 L Pulse Oximetry 100 11/02/19 10:15 11/02/19 10:30 11/02/19 10:45 Temperature Pulse Rate 101 H 110 H 90 Respiratory Rate Blood Pressure 88/57 L 105/42 L 101/60 Pulse Oximetry 11/02/19 11:00 11/02/19 11:15 11/02/19 11:24 Temperature Pulse Rate 104 H 101 H 114 H Respiratory Rate
--- NOTE | 2019-11-03 08:57 | PM.PNNEP ---
Progress Note: A&P Assessment and Plan (1) ESRD (end stage renal disease) on dialysis: Code(s): N18.6 - End stage renal disease; Z99.2 - Dependence on renal dialysis Status: Acute Assessment and Plan: hemodialysis due tomorrow he has some fluid on board. Has some scrotal swelling as well as presacral edema. Will take extra fluid off today if possible. Potassium low. Will supplement (2) Peritonitis (acute) generalized: Code(s): K65.0 - Generalized (acute) peritonitis Status: Acute Assessment and Plan: cultures growing yeast s/p PD catheter removal and washout On micofungin Dr Rowe on the case (3) Hyponatremia: Onset Date: Unknown Code(s): E87.1 - Hypo-osmolality and hyponatremia Status: Acute Assessment and Plan: partly due to ESRD slow improvent with hemodialysis now in the mid 130s (4) Cardiorespiratory arrest: Code(s): I46.9 - Cardiac arrest, cause unspecified Status: Acute Assessment and Plan: presumably precipitated by aspiration now has a tracheostomy remains on mechanical ventilation (5) Aspiration pneumonia: Code(s): J69.0 - Pneumonitis due to inhalation of food and vomit Status: Acute Assessment and Plan: on antibiotics intubated and on mechanical ventilation trach is in Infectious Disease following the patient he may be transferred to an LTAC soon. (6) Encephalopathy: Code(s): G93.40 - Encephalopathy, unspecified Status: Acute Assessment and Plan: some improvement noted continue supportive care Subjective Date/time seen: 11/03/19 08:57 Interval history: patient is on the ventilator. He is awake. Somewhat interactive. No complaints Review of Systems Cardiovascular: Cardiovascular: Reports no additional cardiovascular complaints Respiratory: Respiratory: Reports no additional respiratory complaints Gastrointestinal: Gastrointestinal: Reports no additional gastrointestinal complaints Genitourinary: Genitourinary: Reports no additional male genitourinary complaints Exam Narrative: Exam Narrative: General: WD/WN male - intubated Heart: normal S1 and S2; no rub or gallop Lungs: crackles at bases and diminished breath sonds Abdomen: soft, nontender, nondistended, positive bowel sounds Extremities: no cyanosis or clubbing; 1 to 2+ edema Skin: no rash Objective Data Vital Signs Vital Signs: Vital Signs - 24 hr 11/02/19 09:00 11/02/19 09:15 11/02/19 09:26 Temperature Pulse Rate 101 H 89 114 H Respiratory Rate Blood Pressure 111/88 100/68 Pulse Oximetry 100 11/02/19 09:30 11/02/19 09:45 11/02/19 10:00 Temperature Pulse Rate 62 74 114 H Respiratory Rate 32 H Blood Pressure 119/89 114/61 98/53 L Pulse Oximetry 100 11/02/19 10:15 11/02/19 10:30 11/02/19 10:45 Temperature Pulse Rate 101 H 110 H 90 Respiratory Rate Blood Pressure 88/57 L 105/42 L 101/60 Pulse Oximetry 11/02/19 11:00 11/02/19 11:15 11/02/19 11:24 Temperature Pulse Rate 104 H 101 H 114 H Respiratory Rate 36 H Blood Pressure 98/63 L 87/56 L Pulse Oximetry 100 11/02/19 11:30 11/02/19 11:34 11/02/19 11:48 Temperature Pulse Rate 113 H 109 H 114 H Respiratory Rate Blood Pressure 92/61 L 96/73 L Pulse Oximetry 99 11/02/19 12:00 11/02/19 12:13 11/02/19 12:21 Temperature 36.9 C 37.1 C Pulse Rate 106 H 81 97 Respiratory Rate 32 H 33 H Blood Pressure 133/68 133/68 112/62 Pulse Oximetry 100 100 11/02/19 14:00 11/02/19 14:33 11/02/19 15:21 Temperature Pulse Rate 104 H 113 H 113 H Respiratory Rate 13 22 H Blood Pressure 111/71 Pulse Oximetry 100 97 97 11/02/19 16:00 11/02/19 17:03 11/02/19 17:42 Temperature 36.9 C Pulse Rate 109 H 109 H 109 H Respiratory Rate 14 Blood Pressure 123/79 Pulse Oximetry 93 97 11/02/19 18:00 11/02/19 20:00 08
--- NOTE | 2019-11-03 09:38 | PM.PNGS ---
Progress Note: A&P Assessment and Plan (1) Peritoneal dialysis catheter infection: Code(s): T85.71XA - Infection and inflammatory reaction due to peritoneal dialysis catheter, initial encounter Status: Acute Assessment and Plan: PD catheter removed on October 20. SILVA drain in LLQ still showing some greyish, serosanguineous fluid. This has been consistently draining 10 - 20 cc/day for the last few days and once almost nothing is coming out I would recommend removing it. The new LUQ one had only about 0 -5 cc out for the last 24 hours And it was removed today and covered with a folded 4 x 4 and tape.. Peritoneal fluid cultures have show yeast, Linda albicans. pt on Fluconazole. (2) Severe sepsis: Code(s): A41.9 - Sepsis, unspecified organism; R65.20 - Severe sepsis without septic shock Status: Acute Assessment and Plan: Fungal peritonitis, aspiration pneumonitis, on antifungal and anti-microbial therapy. Remains on mechanical ventilator. (3) Peritonitis: Onset Date: ~10/2019 Code(s): K65.9 - Peritonitis, unspecified Status: Acute Assessment and Plan: Should improve with peritoneal dialysis catheter removed. Continue antifungal treatment. (4) ESRD (end stage renal disease) on dialysis: Code(s): N18.6 - End stage renal disease; Z99.2 - Dependence on renal dialysis Status: Acute Assessment and Plan: Patient receiving Hemodialysis via right IJ tunneled central venous catheter. Additional Plan Will plan to follow output of the remaining SILVA drain until he goes to an LTAC. (Now about 15 cc on the LLQ drain for last 24 hours). Most likely will leave the this one in until there is almost no output. The left upper quadrant drain that was in the lesser sac was removed this date. Patient currently on Fluconazoe for an antifungal. If patient goes to the LTAC I would recommend the mallory on his upper midline be removed in approximately 10 days which would be about November 12. My recommendation for the other SILVA drain is to leave it until it goes for about 24 hours with no drainage at all then pull it. Subjective Subjective Date/Time Seen: 11/03/19 09:38 Patient is sitting up in bed appears to be alert and looking around. Nurse reports no problems with the G-tube feedings and there has been min and minimal residual when checked. Patient had a large bowel movement this morning. There was minimal out the upper abdominal drain on the left so this will be removed today. Post Op day: 4 (S/p tracheostomy and open G-tube placement. POD#13 S/P Rt IJ tunnelled dialysis cath placement and removal of PD cath.) Interval history: As above. Nurse informs me that plan for case management is to have the patient transfer to an LTAC when stable enough to do so. Review of Systems Review of Systems: ROS unobtainable: Yes unobtainable due to endotracheal tube, unobtainable due to medical condition and unobtainable due to mental status Exam HENMT: Head: normal to inspection, normocephalic and atraumatic Ears: hearing grossly normal bilaterally and external ears normal General nose exam: no epistaxis Face and sinus: other ( NG-tube in right near.) Mouth: Yes Normal oral and palatal mucosa present and Yes moist mucous membranes Other: Patient now has tracheostomy. Nurse reports no significant bleeding around the tracheostomy site overnight. Eyes: General: appearance normal, both eyes and all related structures Sclera: sclerae normal EOM: EOMs intact bilaterally Neck: Neck: normal visual inspection, full ROM, no JVD and other ( right IJ tunneled dialysis catheter dry and intact.) Lymphatic: lymphadenopathy not noted Other: Incisions on right neck clean and dry. Triple lumen central line on the left without signs of purulent exudate. Patient now has a tracheostomy tube placed by ENT. GI: Inspection: normal to inspection, incision ( Sero
--- NOTE | 2019-11-03 11:17 | PCNFU ---
Nutrition Follow-Up Complete: Inadequate oral intake related to oral intubation as evidenced by NPO status. Goal: Patient to meet estimated nutritional needs. Patient is meeting goal via tube feeding. Will continue with same goal. Pt current nutrition is Nepro at goal of 40 mL/hr with 30 mL water flushes every 4 hours and with pro stat protein TID (100 kcal and 15 grams protein per packet). Nutrition recommendation: Agree with current recommendations Last recorded weight is 71.9 kg. Patient had 3.6 kg weight loss from yesterday (11/02/19). Patient on hemodialysis and had negative I's and O's Bowel Motility: last bowel movement reported on 11/02/19 - possible need for rectal tube discussed during rounds Labs Reviewed: Hgb (8.3) Hct (27.2) Alb (1.9) Na (133) K (3.1) GFR (28) BUN (25) Cr (2.3) Glu (179) Meds Noted: Dulcolax prn (not given), Flagyl, Protonix, Miralax (prn-not given), Fentanyl, Diflucan, Novolog, Lantus, Albumin, Albuterol, Atrovent, Lactinex, Synthroid Additional Notes: Ulcers to coccyx, buttocks and feet.Wound incision and puncture on abdomen. Multiple skin tears also noted. Follow up every Saturday/Saturday. Follow daily in ICU rounds.
--- NOTE | 2019-11-03 11:18 | WPDINTPN ---
Progress Note: A&P Assessment and Plan (1) Severe sepsis: Code(s): A41.9 - Sepsis, unspecified organism; R65.20 - Severe sepsis without septic shock Status: Acute Assessment and Plan: septic shock secondary to fungal peritonitis and PNA . Improving/resolving - OFF LEVOPHED since 2:00 a.m. on 10/16/2019 - peritoneal cultures growing Yeast - continue IV metronidazole and fluconazole per infectious disease - now off all antibacterials - CT scan of the abdomen and pelvis on 10/16 showed interval progression of patchy bilateral airspace disease, compatible pneumonia. Bilateral pleural effusions right greater than left moderate ascites which appears loculated the left upper abdomen, cannot exclude peritonitis, abdominal wall thickening suspicious for cystitis. peritoneal dialysis catheter present in the pelvis - 10/19/2019 peritoneal fluid Gram stain , no organism seen - 10/19/2019 peritoneal fluid culture, growing Linda albicans - 10/18/2019 blood cultures negative x2 - 10/21/2019 repeat peritoneal cultures and peritoneal catheter cultures growing Linda albicans (2) Peritonitis: Onset Date: ~10/2019 Code(s): K65.9 - Peritonitis, unspecified Status: Acute Assessment and Plan: Linda peritonitis - status post removal of peritoneal dialysis catheter on 10/21/2019, Catheter and peritoneal fluid sent for culture - SILVA drains x2 draining minimal amount of serosanguineous fluid, surgery following the patient - continue IV fluconazole per infectious disease (3) Acute respiratory failure: Code(s): J96.00 - Acute respiratory failure, unspecified whether with hypoxia or hypercapnia Status: Acute Assessment and Plan: - patient on mechanical ventilation - patient patient not tolerating ASV mode of ventilation as he has elevated peak pressures. I also tried patient on pressure support ventilation, but he is requiring a very high inspiratory pressure. Placed back on CMV mode. - patient now status post tracheostomy on 10/30/2019 - will have physical and occupational therapy work with the patient (4) Aspiration pneumonia: Code(s): J69.0 - Pneumonitis due to inhalation of food and vomit Status: Acute Assessment and Plan: completed course of antibiotics (5) Encephalopathy: Code(s): G93.40 - Encephalopathy, unspecified Status: Acute Assessment and Plan: - gradually improving - continue to hold sedation - encephalopathy likely multifactorial related to metabolic /uremic encephalopathy, infectious encephalopathy, medication related - neurology has been consulted and appreciate their evaluation and recommendations - EEG was done on 10/20/2019 and discussed with Neurology, EEG had significant slowing, likely related to severe encephalopathy. No epileptiform discharges were seen - patient did have a CT scan of the brain on 10/18/2019: was negative for any acute intracranial pathology (6) Cardiorespiratory arrest: Code(s): I46.9 - Cardiac arrest, cause unspecified Status: Acute Assessment and Plan: PEA arrest likely due aspiration,ROSC after 1 round of epinephrine - post arrest pt was following commands and so did not require hypothermia protocol - trops elevated to 0.40 likely due to cardiac arrest and renal failure (7) Colitis: Code(s): K52.9 - Noninfective gastroenteritis and colitis, unspecified Status: Acute Assessment and Plan: RESOLVED - patient presented with abdominal pain, nausea, vomiting and diarrhea, CT scan of the abdomen and pelvis on 10/13/2019 showed sigmoid colon wall thickening is consistent with colitis. Repeat CT abdomen pelvis on 10/17/2019 did not show any evidence of mesenteric ischemia. He does have ascites and 1 pocket of ascites seems to be loculated, possible peritonitis, bladder wall thickening suspicion for cystitis - continue antibiotics as above -
--- NOTE | 2019-11-03 11:32 | PCNSR ---
On 11/03/19, the student, Nam Guillen, provided care and completed [facility] this [facility]. I have reviewed the student's documentation and agree with the findings.
[2019-11-03 12:04] LABS: Glucose Point of Care 243 (65-105)
--- NOTE | 2019-11-03 12:33 | WPDINFPN2 ---
Progress Note: A&P Assessment and Plan (1) Leukocytosis: Onset Date: ~09/2019 Code(s): D72.829 - Elevated white blood cell count, unspecified Status: Acute Assessment and Plan: 1. Leukocytosis, due to fungal peritonitis from his catheter. WBC still in mid teens. 2. Colitis by CT 3. CRF on HD now 4. PCN intolerance 5. Pleural effusion, not infected by culture REC Fluconazole # 13 (antifungal #14), stop after tomorrow dose. POD # 13 cath removal. Following WBC over time. Adjust dosing to be given after HD. Subjective Date/time seen: 11/03/19 12:33 Interval history: no verbal response Exam Narrative: Exam Narrative: afebrile Const: General: no acute distress Resp: Effort & Inspection: normal respiratory effort Auscultation: rales Cardio: Rate: tachycardic Rhythm: regular rhythm Heart sounds: no murmurs GI: Inspection: distended GI Palp: Yes Soft to palpation, No Tenderness to palpation present (GI) and No Guarding due to palpation present (GI) Percussion: Yes dullness to percussion Skin: General skin exam: no rashes or lesions noted Objective Data Vital Signs Vital Signs: Vital Signs - 24 hr 11/02/19 14:00 11/02/19 14:33 11/02/19 15:21 Temperature Pulse Rate 104 H 113 H 113 H Respiratory Rate 13 22 H Blood Pressure 111/71 Pulse Oximetry 100 97 97 11/02/19 16:00 11/02/19 17:03 11/02/19 17:42 Temperature 36.9 C Pulse Rate 109 H 109 H 109 H Respiratory Rate 14 Blood Pressure 123/79 Pulse Oximetry 93 97 11/02/19 18:00 11/02/19 20:00 11/02/19 20:53 Temperature 36.9 C Pulse Rate 113 H 109 H 103 H Respiratory Rate 27 H 22 H Blood Pressure 123/76 124/75 Pulse Oximetry 98 100 100 11/02/19 22:00 11/02/19 23:21 11/03/19 00:00 Temperature 36.9 C Pulse Rate 106 H 101 H 106 H Respiratory Rate 24 H 24 H Blood Pressure 137/76 136/86 Pulse Oximetry 99 100 100 11/03/19 02:00 11/03/19 02:28 11/03/19 04:00 Temperature Pulse Rate 96 101 H 104 H Respiratory Rate 28 H 26 H Blood Pressure 124/67 126/56 L Pulse Oximetry 100 100 100 11/03/19 05:23 11/03/19 06:00 11/03/19 08:00 Temperature 36.7 C Pulse Rate 103 H 106 H 106 H Respiratory Rate 28 H 24 H Blood Pressure 125/66 118/65 Pulse Oximetry 100 100 100 11/03/19 08:35 11/03/19 10:00 Temperature Pulse Rate 114 H 108 H Respiratory Rate 23 H Blood Pressure 108/48 L Pulse Oximetry 100 100 Intake/Output Intake/Output: Intake & Output 10/31/19 11/01/19 11/02/19 11/03/19 23:59 23:59 23:59 23:59 Intake Total 590 1839 1602 826 Output Total 223 16 7590 15 Balance 335 0599 -993 505 Meds/Results Medications: Active Medications Generic Name Dose Route Start Last Admin Trade Name Freq PRN Reason Stop Dose Admin Albuterol 2.5 mg 10/29/19 11:48 Albuterol Sulf Neb 2.5mg/0.5ml INHALATION Q4HRT PRN Wheezing or high peak pressure Aspirin 81 mg 10/28/19 12:00 11/03/19 08:21 Aspirin Ec PO 81 mg QAM JOHNATHAN Administration Bisacodyl 10 mg 10/14/19 17:03 10/16/19 17:51 Dulcolax Suppository RECTAL 10 mg QAM PRN Administration Constipation Dextrose 12.5 gm 10/31/19 09:03 Dextrose 50% Syringe IV PUSH PRN PRN Hypoglycemia Protocol Fentanyl Citrate 50 mcg 10/31/19 21:49 11/01/19 12:47 Sublimaze IV PUSH 25 mcg Q1H PRN Administration Pain Rated 7-10 Fluticasone Propionate 2 spray 10/16/19 09:00 11/03/19 08:20 Flonase 0.05% Nasal [place] NASAL 2 spray DAILY JOHNATHAN Administration Glucagon 1 mg 10/31/19 09:03 Glucagon For Inj IM PRN PRN Hypoglycemia Protocol Glucose 15 gm 10/31/19 09:03 Glutose 15 PO PRN PRN Hypoglycemia Protocol Heparin Sodium (Porcine) 5,000 units 11/01/19 21:00 11/03/19 08:20 Heparin Sodium SUB-Q 5,000 units Q12HR JOHNATHAN Administration Metronidazole 500 mg in 100 mls @ 100 mls/hr 10/13/19 18:00 11/03/19 12:10 Sharona Roach
--- NOTE | 2019-11-03 13:49 | PM.IMPN ---
Progress Note: A&P Assessment and Plan (1) Septic shock: Code(s): A41.9 - Sepsis, unspecified organism; R65.21 - Severe sepsis with septic shock Status: Deleted Assessment and Plan: 11/03/19 13:49 patient is 78-year-old male with history of end-stage renal disease on peritoneal dialysis presented emergency department had a cardiac arrest ROSC after 1 round of epinephrine per protocol ROSC, with shortness of breath and hypoxic patient was intubated currently on vent, patient may have aspirated pneumonia, patient in septic shock and on pressor, patient being treated with Levaquin, vancomycin and Flagyl, discussed with car repairer apprentice prognosis is poor we appreciate car repairer apprentice, patient is seen by Dr. Aguilar nephrology for peritoneal dialysis, Self Propelled Dredge Operator had spoken with patient's , she would like to keep full code and continue to treat the patient. septic shock resolved and patient is off Levophed, septic shock most likely secondary to aspiration pneumonia possibly peritonitis and treated with Flagyl cefepime and ceftazidime intraperitoneal by nephrology, patient is his leukocytosis etiology uncertain seen by Dr. Rowe and car repairer apprentice, stopped all antibiotic and has started the patient vancomycin and aztreonam, meanwhile patient was seen by surgery and peritoneal dialysis catheter was removed and now patient is on hemodialysis, unable to wean the patient off the ventilator, patient had a trach on 10/29 as well as GI was unable to place PEG tube due to adhesions patient had open gastrostomy tube placed on 10/29, discussed with car repairer apprentice, again today patient is not very responsive does not follow instruction, patient has very poor efforts, unable to to wean off ventilator prognosis is poor awaiting LTAC placement (2) Cardiorespiratory arrest: Code(s): I46.9 - Cardiac arrest, cause unspecified Status: Acute Assessment and Plan: Sp cardioarrest (3) Aspiration pneumonia: Code(s): J69.0 - Pneumonitis due to inhalation of food and vomit Status: Acute Assessment and Plan: Patient had aspirated resulting in pneumonia and septic shock secondary to fungal peritonitis and PNA See ID recommendations (4) Atrial fibrillation: Onset Date: ~09/2019 Code(s): I48.91 - Unspecified atrial fibrillation Status: Acute (5) Hyponatremia: Onset Date: Unknown Code(s): E87.1 - Hypo-osmolality and hyponatremia Status: Acute Assessment and Plan: Rate is controlled (6) Abnormal computed tomography of abdomen and pelvis: Code(s): R93.5 - Abnormal findings on diagnostic imaging of other abdominal regions, including retroperitoneum Status: Acute Assessment and Plan: Suspect peritonitis (7) Peritonitis (acute) generalized: Code(s): K65.0 - Generalized (acute) peritonitis Status: Acute Assessment and Plan: Patient on peritoneal dialysis,patient is being treated with antibiotics and septic shock secondary to fungal peritonitis and PNA See ID recommendations (8) Peritoneal dialysis catheter infection: Code(s): T85.71XA - Infection and inflammatory reaction due to peritoneal dialysis catheter, initial encounter Status: Acute Assessment and Plan: Septic shock secondary to fungal peritonitis and PNA, see IDrecommendations POD#11 s/p removal of PD catheter for peritonitis, now on hemodialysis (9) Encephalopathy: Code(s): G93.40 - Encephalopathy, unspecified Status: Acute Assessment and Plan: Encephalopathy and septic shock secondary to fungal peritonitis and Pneumonia see ID recommendations Subjective Date/time seen: 11/03/19 13:49 patient is 78-year-old male with history of end-stage renal disease on peritoneal dialysis presented emergency department had a cardiac arrest ROSC after 1 round of epinephrine per protocol ROSC, with shortness of breath and hypoxic patient wa
[2019-11-03] MEDS: FLUCONAZOLE 200 MG/NACL 100 ML 200 MG/100 ML BAG 100 MG IVPB (18:21)
[2019-11-03 18:31] LABS: Glucose Point of Care 216 (65-105)
[2019-11-03 23:49] LABS: Glucose Point of Care 218 (65-105)
[2019-11-04] VITALS (32 sets, daily range): BP systolic 85–137; BP diastolic 26–116; PULSE 100–115; RESP 18–34; TEMP 35.9–37.3; O2SAT 98–100
[2019-11-04] MEDS: metroNIDAZOLE 500 MG/ISO 100ML 500 MG/100 ML BAG 100 MG IVPB ×4 (00:04→17:08)
[2019-11-04] MEDS: INSULIN ASPART (*BKC) 100 UNITS/ML SUB-Q ×3 (00:05→11:13)
[2019-11-04 04:50] LABS: Hematocrit 27.9 % (42.0-52.0); Hemoglobin 8.7 g/dL (14.0-18.0); Mean Corpuscular HGB Conc 31.2 g/dl (32-36); Mean Corpuscular Hemoglobin 33.3 pg (26-34); Mean Corpuscular Volume 106.9 fl (80-100); Mean Platelet Volume 10.9 fl (7.4-10.4); Platelet Count Result 463 k/mm3 (150-375); Red Blood Count 2.61 M/mm3 (4.6-6.20); Red Cell Distribution Width 21.3 % (11.5-14.5); White Blood Count 15.5 K/mm3 (4.5-10.0)
[2019-11-04 05:14] LABS: Alanine Aminotransferase 19 U/L (4-50); Alkaline Phosphatase 313 U/L (38-126); Anion Gap 9 mmol/L (8-16); Aspartate Amino Transferase 40 U/L (17-59); Bilirubin,Total 0.3 mg/dL (0.2-1.3); Blood Urea Nitrogen 39 mg/dL (9-20); Calcium 6.8 mg/dL (8.4-10.2); Carbon Dioxide 27 mmol/L (22-30); Chloride 100 mmol/L (98-107); Estimated CRCL calculation 16 ml/min; Estimated Glomerular Filt Rate 20; Glucose 219 mg/dL (75-110); Magnesium 1.8 mg/dL (1.6-2.3); Phosphorus 4.2 mg/dL (2.5-4.5); Potassium 3.5 mmol/L (3.4-5.0); Sodium 136 mmol/L (137-145)
[2019-11-04 05:25] LABS: Alveolar/Arterial O2 Gradient 108.5 mmHg; Carboxyhemoglobin 0.3 % THb (0-2.0); Fractional Inspired Oxygen 35 %; HCO3 ABG 24.2 mEq/l (22.0-26.0); Methemoglobin ABG 0.4 %THb (0-1.5); Oxygen Content ABG 14.3 %vol (16.0-22.0); Oxygen Saturation ABG 97.6 % (95.0-100.0); Oxyhemoglobin 96.1 % THb (90.0-100.0); PCO2 ABG 37.7 mmHg (35.0-45.0); PO2 ABG 97.2 mmHg (80.0-100.0); PO2 FiO2 Ratio Arterial Blood 2.78 %; Reduced Hemoglobin 3.2 %THb (0-5.0); Site Drawn RIGHT RADIAL; Total Hemoglobin 10.5 g/dL (12.0-18.0); pH ABG 7.426 (7.350-7.450)
[2019-11-04 05:26] LABS: Device VENTILATOR; Modified Allen's Test Pass
[2019-11-04 05:27] LABS: Arterial Blood Gas PEEP 5 cmH2O; Arterial Blood Gas Tidal Volume 300 ml; Arterial Blood Gas Vent Mode CMV; Arterial Blood Gas Ventilator rate 18 /MIN
[2019-11-04] MEDS: LEVOTHYROXINE SODIUM 75 MCG TABLET PO (05:27)
[2019-11-04] MEDS: CENTRAL LINE FLUSH 10 ML IV PUSH ×3 (05:27→21:05)
[2019-11-04] MEDS: INSULIN GLARGINE (*BKC) 100 UNITS/ML 16 UNITS SUB-Q (07:56)
[2019-11-04 07:57] LABS: Glucose Point of Care 223 (65-105)
[2019-11-04] MEDS: FLUTICASONE PROPIONATE 0.05% NA SPR 16 GM BTL (*BKC) 2 SPRAY NASAL (08:00)
[2019-11-04] MEDS: ASPIRIN 81 MG ENTERIC TABLET PO (08:00)
[2019-11-04] MEDS: ACIDOPHILUS/BULGARICUS CHEWABLE TABLET 1 TABLET PO (08:01)
[2019-11-04] MEDS: PRAVASTATIN SODIUM 20 MG TABLET 80 MG PO (08:01)
[2019-11-04] MEDS: HEPARIN SODIUM 5,000 UNITS/ML VIAL 5000 UNITS SUB-Q ×2 (08:02→20:48)
[2019-11-04] MEDS: PANTOPRAZOLE SODIUM IV 40 MG VIAL IV PUSH ×2 (08:13→20:48)
[2019-11-04] MEDS: NEOMYCIN/POLYMYXIN/BACITRACIN OINTMENT 15 GM TUBE 1 APPLIC TOPICAL (08:14)
[2019-11-04] MEDS: SILVERGEL (ELTA) 45 ML 1 APPLIC TOPICAL (08:14)
--- NOTE | 2019-11-04 10:56 | WPDINFPN2 ---
Progress Note: A&P Assessment and Plan (1) Leukocytosis: Onset Date: ~09/2019 Code(s): D72.829 - Elevated white blood cell count, unspecified Status: Acute Assessment and Plan: 1. Leukocytosis, due to fungal peritonitis from his catheter. WBC still in mid teens. 2. Colitis by CT 3. CRF on HD now 4. PCN intolerance 5. Pleural effusion, not infected by culture REC Fluconazole # 14 (antifungal #15), stop after today. POD # 14 cath removal. Following WBC over time. The L IJ catheter should be removed or changed, due to potential for CLABSI. Will sign off Subjective Date/time seen: 11/04/19 10:56 Interval history: non verbal Exam Narrative: Exam Narrative: afebrile Const: General: no acute distress Resp: Effort & Inspection: normal respiratory effort Auscultation: rales Cardio: Rate: regular rate Rhythm: regular rhythm GI: Inspection: non-distended GI Palp: Yes Firmness to palpation present (GI), No Tenderness to palpation present (GI) and No Guarding due to palpation present (GI) Skin: General skin exam: no rashes or lesions noted Objective Data Vital Signs Vital Signs: Vital Signs - 24 hr 11/03/19 12:00 11/03/19 14:00 11/03/19 14:50 Temperature 37.3 C Pulse Rate 110 H 123 H 116 H Respiratory Rate 30 H 27 H Blood Pressure 112/62 106/64 Pulse Oximetry 100 89 L 99 11/03/19 16:00 11/03/19 17:00 11/03/19 18:00 Temperature Pulse Rate 116 H 107 H 119 H Respiratory Rate 27 H 25 H Blood Pressure 117/86 109/79 Pulse Oximetry 100 98 100 11/03/19 20:00 11/03/19 20:21 11/03/19 22:00 Temperature 36.8 C Pulse Rate 105 H 103 H 112 H Respiratory Rate 18 20 Blood Pressure 111/43 L 104/53 L Pulse Oximetry 100 100 100 11/03/19 23:00 11/03/19 23:35 11/04/19 00:00 Temperature 35.9 C L Pulse Rate 108 H 115 H Respiratory Rate 22 H Blood Pressure 104/52 L Pulse Oximetry 100 99 98 11/04/19 02:00 11/04/19 02:20 11/04/19 03:50 Temperature 36.7 C Pulse Rate 112 H 106 H 102 H Respiratory Rate 22 H 22 H Blood Pressure 128/72 127/48 L Pulse Oximetry 100 99 100 11/04/19 05:15 11/04/19 05:48 11/04/19 08:00 Temperature Pulse Rate 113 H 111 H 112 H Respiratory Rate 26 H 32 H Blood Pressure 120/69 Pulse Oximetry 100 100 100 11/04/19 08:19 11/04/19 10:00 11/04/19 10:30 Temperature 36.9 C Pulse Rate 112 H 108 H 106 H Respiratory Rate 32 H 27 H Blood Pressure 137/65 98/69 L Pulse Oximetry 100 100 100 Intake/Output Intake/Output: Intake & Output 11/01/19 11/02/19 11/03/19 11/04/19 23:59 23:59 23:59 23:59 Intake Total 1839 1602 1584 822 Output Total 15 2529 22 5 Balance 1824 92 1562 817 Meds/Results Medications: Active Medications Generic Name Dose Route Start Last Admin Trade Name Freq PRN Reason Stop Dose Admin Albuterol 2.5 mg 10/29/19 11:48 Albuterol Sulf Neb 2.5mg/0.5ml INHALATION Q4HRT PRN Wheezing or high peak pressure Aspirin 81 mg 10/28/19 12:00 11/04/19 08:00 Aspirin Ec PO 81 mg QAM JOHNATHAN Administration Bisacodyl 10 mg 10/14/19 17:03 10/16/19 17:51 Dulcolax Suppository RECTAL 10 mg QAM PRN Administration Constipation Dextrose 12.5 gm 10/31/19 09:03 Dextrose 50% Syringe IV PUSH PRN PRN Hypoglycemia Protocol Fentanyl Citrate 50 mcg 10/31/19 21:49 11/01/19 12:47 Sublimaze IV PUSH 25 mcg Q1H PRN Administration Pain Rated 7-10 Fluticasone Propionate 2 spray 10/16/19 09:00 11/04/19 08:00 Flonase 0.05% Nasal [place] NASAL 2 spray DAILY JOHNATHAN Administration Glucagon 1 mg 10/31/19 09:03 Glucagon For Inj IM PRN PRN Hypoglycemia Protocol Glucose 15 gm 10/31/19 09:03 Glutose 15 PO PRN PRN Hypoglycemia Protocol Heparin Sodium (Porcine) 5,000 units 11/01/19 21:00 11/04/19 08:02 Heparin Sodium SUB-Q 5,000 units Q12HR JOHNATHAN Administration Metronidazole 500 mg in 100 mls @ 100 mls/
--- NOTE | 2019-11-04 11:14 | PC.NURSE ---
Hvac Design Engineer placed patients ventilator from full support CMV to spontaneous 5/5. Immediately the respirations went up to forty, tidal volume was 120-200. Patient failed spontaneous with MD at bedside. Hvac Design Engineer placed patient back on CMV as patient could not tolerate spontaneous.
--- NOTE | 2019-11-04 11:17 | PCDIET ---
ICU Rounding Note: Patient tolerating Nepro at 40mL/hr goal rate with Pro-Stat flush TID. Last recorded weight is 71.3kg which is stable. Plan for dialysis today. Bowel Motility: FMS implemented due to loose stools. Labs Reviewed: Hgb (8.7), Hct (27.9), Glu (223), BUN (39), Cr (3.0), Na (136), Alb (2.0), Ade Ca (8.4) Meds Noted: Albumin, Novolog, Lactinex, Albuterol, Lantus, Synthroid, Atrovent, Flagyl, Protonix Additional Notes: Integumentary notes reviewed. Coccyx ulcer documented with no other significant change. Recommend continuing increased rate of Nepro with protein flushes. Following daily in ICU rounds. Assessing/reassessing every Saturday/Saturday.
--- NOTE | 2019-11-04 11:17 | WPDINTPN ---
Progress Note: A&P Assessment and Plan (1) Acute respiratory failure: Code(s): J96.00 - Acute respiratory failure, unspecified whether with hypoxia or hypercapnia Status: Acute Assessment and Plan: - patient on mechanical ventilation and failure to wean - patient now status post tracheostomy on 10/30/2019 - patient had a a ultrasound-guided thoracentesis done on right and 150 mL fluid was removed - I tried patient on pressure support ventilation for a weaning trial. Patient failed within 5 minutes with a high respiratory rate in 40s and tidal volume dropped to 100-200 cc and patient was in obvious respiratory distress. - Continue CMV at this time. Patient does not tolerate ASV mode with respiratory rate and peak pressure is going up. - Continue physical and occupational therapy work with the patient - consult pulmonary to meet requirements for LTAC placement (2) Severe sepsis: Code(s): A41.9 - Sepsis, unspecified organism; R65.20 - Severe sepsis without septic shock Status: Acute Assessment and Plan: septic shock secondary to fungal peritonitis and PNA . Improving/resolving - OFF LEVOPHED since 2:00 a.m. on 10/16/2019 - peritoneal cultures growing Yeast - continue IV metronidazole and fluconazole per infectious disease - now off all antibacterials - CT scan of the abdomen and pelvis on 10/16 showed interval progression of patchy bilateral airspace disease, compatible pneumonia. Bilateral pleural effusions right greater than left moderate ascites which appears loculated the left upper abdomen, cannot exclude peritonitis, abdominal wall thickening suspicious for cystitis. peritoneal dialysis catheter present in the pelvis - 10/19/2019 peritoneal fluid Gram stain , no organism seen - 10/19/2019 peritoneal fluid culture, growing Linda albicans - 10/18/2019 blood cultures negative x2 - 10/21/2019 repeat peritoneal cultures and peritoneal catheter cultures growing Linda albicans (3) Peritonitis: Onset Date: ~10/2019 Code(s): K65.9 - Peritonitis, unspecified Status: Acute Assessment and Plan: Linda peritonitis - status post removal of peritoneal dialysis catheter on 10/21/2019, Catheter and peritoneal fluid sent for culture - SILVA drains x1 draining minimal amount of serosanguineous fluid, surgery following the patient - 2nd SILVA drain was removed yesterday - continue IV fluconazole per infectious disease (4) Aspiration pneumonia: Code(s): J69.0 - Pneumonitis due to inhalation of food and vomit Status: Acute Assessment and Plan: completed course of antibiotics (5) Encephalopathy: Code(s): G93.40 - Encephalopathy, unspecified Status: Acute Assessment and Plan: - gradually improving - continue to hold sedation - encephalopathy likely multifactorial related to metabolic /uremic encephalopathy, infectious encephalopathy, medication related - neurology has been consulted and appreciate their evaluation and recommendations - EEG was done on 10/20/2019 and discussed with Neurology, EEG had significant slowing, likely related to severe encephalopathy. No epileptiform discharges were seen - patient did have a CT scan of the brain on 10/18/2019: was negative for any acute intracranial pathology (6) Cardiorespiratory arrest: Code(s): I46.9 - Cardiac arrest, cause unspecified Status: Acute Assessment and Plan: PEA arrest likely due aspiration,ROSC after 1 round of epinephrine - post arrest pt was following commands and so did not require hypothermia protocol - trops elevated to 0.40 likely due to cardiac arrest and renal failure (7) Colitis: Code(s): K52.9 - Noninfective gastroenteritis and colitis, unspecified Status: Acute Assessment and Plan: RESOLVED - patient presented with abdominal pain, nausea, vomiting and diarrhea, CT scan of the abdomen and pelvis on 10/12
--- NOTE | 2019-11-04 12:26 | PM.PNNEP ---
Progress Note: A&P Assessment and Plan (1) ESRD (end stage renal disease) on dialysis: Code(s): N18.6 - End stage renal disease; Z99.2 - Dependence on renal dialysis Status: Acute Assessment and Plan: hemodialysis due today will remove fluid. (2) Peritonitis (acute) generalized: Code(s): K65.0 - Generalized (acute) peritonitis Status: Acute Assessment and Plan: cultures growing yeast s/p PD catheter removal and washout On micofungin Dr Rowe on the case (3) Hyponatremia: Onset Date: Unknown Code(s): E87.1 - Hypo-osmolality and hyponatremia Status: Acute Assessment and Plan: Stable. He does make any urine so basically based on input and insensible loss. (4) Cardiorespiratory arrest: Code(s): I46.9 - Cardiac arrest, cause unspecified Status: Acute Assessment and Plan: presumably precipitated by aspiration now has a tracheostomy remains on mechanical ventilation (5) Aspiration pneumonia: Code(s): J69.0 - Pneumonitis due to inhalation of food and vomit Status: Acute Assessment and Plan: on antibiotics trached and on mechanical ventilation (6) Encephalopathy: Code(s): G93.40 - Encephalopathy, unspecified Status: Acute Assessment and Plan: some improvement noted continue supportive care Subjective Date/time seen: 11/04/19 12:26 Interval history: patient is on the ventilator. He is awake. is in the room. We discussed the case. Review of Systems Review of Systems: ROS unobtainable: Yes unobtainable due to endotracheal tube and unobtainable due to medical condition Exam Narrative: Exam Narrative: General: WD/WN male - intubated Heart: normal S1 and S2; no rub Lungs: crackles at bases and diminished breath sonds Abdomen: soft, nontender, nondistended, positive bowel sounds Extremities: no cyanosis or clubbing; 1 to 2+ edema Skin: no rash Or subcu nodules Objective Data Vital Signs Vital Signs: Vital Signs - 24 hr 11/03/19 14:00 11/03/19 14:50 11/03/19 16:00 Temperature Pulse Rate 123 H 116 H 116 H Respiratory Rate 27 H 27 H Blood Pressure 106/64 117/86 Pulse Oximetry 89 L 99 100 11/03/19 17:00 11/03/19 18:00 11/03/19 20:00 Temperature Pulse Rate 107 H 119 H 105 H Respiratory Rate 25 H Blood Pressure 109/79 Pulse Oximetry 98 100 100 11/03/19 20:21 11/03/19 22:00 11/03/19 23:00 Temperature 36.8 C Pulse Rate 103 H 112 H 108 H Respiratory Rate 18 20 Blood Pressure 111/43 L 104/53 L Pulse Oximetry 100 100 100 11/03/19 23:35 11/04/19 00:00 11/04/19 02:00 Temperature 35.9 C L Pulse Rate 115 H 112 H Respiratory Rate 22 H 22 H Blood Pressure 104/52 L 128/72 Pulse Oximetry 99 98 100 11/04/19 02:20 11/04/19 03:50 11/04/19 05:15 Temperature 36.7 C Pulse Rate 106 H 102 H 113 H Respiratory Rate 22 H Blood Pressure 127/48 L Pulse Oximetry 99 100 100 11/04/19 05:48 11/04/19 08:00 11/04/19 08:10 Temperature Pulse Rate 111 H 112 H 113 H Respiratory Rate 26 H 32 H Blood Pressure 120/69 Pulse Oximetry 100 100 100 11/04/19 08:19 11/04/19 10:00 11/04/19 10:30 Temperature 36.9 C Pulse Rate 112 H 108 H 106 H Respiratory Rate 32 H 27 H Blood Pressure 137/65 98/69 L Pulse Oximetry 100 100 100 Intake/Output Intake/Output: Intake & Output 11/01/19 11/02/19 11/03/19 11/04/19 23:59 23:59 23:59 23:59 Intake Total 1839 1602 1584 822 Output Total 15 9509 22 5 Balance 1824 -927 1562 817 Meds/Results Medications: Active Medications Generic Name Dose Route Start Last Admin Trade Name Freq PRN Reason Stop Dose Admin Albuterol 2.5 mg 10/29/19 11:48 Albuterol Sulf Neb 2.5mg/0.5ml INHALATION Q4HRT PRN Wheezing or high peak pressure Aspirin 81 mg 10/28/19 12:00 11/04/19 08:00 Aspirin Ec PO 81 mg QAM JOHNATHAN Administration Bi
[2019-11-04 12:28] LABS: Glucose Point of Care 233 (65-105)
--- NOTE | 2019-11-04 14:46 | PM.IMPN ---
Progress Note: A&P Assessment and Plan (1) Septic shock: Code(s): A41.9 - Sepsis, unspecified organism; R65.21 - Severe sepsis with septic shock Status: Deleted Assessment and Plan: 11/04/19 14:46 patient is 78-year-old male with history of end-stage renal disease on peritoneal dialysis presented emergency department had a cardiac arrest ROSC after 1 round of epinephrine per protocol ROSC, with shortness of breath and hypoxic patient was intubated currently on vent, patient may have aspirated pneumonia, patient in septic shock and on pressor, patient being treated with Levaquin, vancomycin and Flagyl, discussed with swage toolsetter prognosis is poor we appreciate swage toolsetter, patient is seen by Dr. Aguilar nephrology for peritoneal dialysis, Prisoner Classification Interviewer had spoken with patient's , she would like to keep full code and continue to treat the patient. septic shock resolved and patient is off Levophed, septic shock most likely secondary to aspiration pneumonia possibly peritonitis and treated with Flagyl cefepime and ceftazidime intraperitoneal by nephrology, patient is his leukocytosis etiology uncertain seen by Dr. Rowe and swage toolsetter, stopped all antibiotic and has started the patient vancomycin and aztreonam, meanwhile patient was seen by surgery and peritoneal dialysis catheter was removed and now patient is on hemodialysis, unable to wean the patient off the ventilator, once PEG and trach fully establised, pt to be transferred to LTAC patient however LTAC is reluctant to accept the patient because of poor prognosis and may not be able to wean off the ventilator requesting pulmonary evaluation and their recommendation, discussed with swage toolsetter pulmonology being consult and further recommendation to follow (2) Cardiorespiratory arrest: Code(s): I46.9 - Cardiac arrest, cause unspecified Status: Acute Assessment and Plan: Sp cardioarrest (3) Aspiration pneumonia: Code(s): J69.0 - Pneumonitis due to inhalation of food and vomit Status: Acute Assessment and Plan: Patient had aspirated resulting in pneumonia and septic shock secondary to fungal peritonitis and PNA See ID recommendations (4) Atrial fibrillation: Onset Date: ~09/2019 Code(s): I48.91 - Unspecified atrial fibrillation Status: Acute (5) Hyponatremia: Onset Date: Unknown Code(s): E87.1 - Hypo-osmolality and hyponatremia Status: Acute Assessment and Plan: Rate is controlled (6) Abnormal computed tomography of abdomen and pelvis: Code(s): R93.5 - Abnormal findings on diagnostic imaging of other abdominal regions, including retroperitoneum Status: Acute Assessment and Plan: Suspect peritonitis (7) Peritonitis (acute) generalized: Code(s): K65.0 - Generalized (acute) peritonitis Status: Acute Assessment and Plan: Patient on peritoneal dialysis,patient is being treated with antibiotics and septic shock secondary to fungal peritonitis and PNA See ID recommendations (8) Peritoneal dialysis catheter infection: Code(s): T85.71XA - Infection and inflammatory reaction due to peritoneal dialysis catheter, initial encounter Status: Acute Assessment and Plan: Septic shock secondary to fungal peritonitis and PNA, see IDrecommendations POD#11 s/p removal of PD catheter for peritonitis (9) Encephalopathy: Code(s): G93.40 - Encephalopathy, unspecified Status: Acute Assessment and Plan: Encephalopathy and septic shock secondary to fungal peritonitis and Pneumonia see ID recommendations Subjective Date/time seen: 11/04/19 14:46 patient is 78-year-old male with history of end-stage renal disease on peritoneal dialysis presented emergency department had a cardiac arrest ROSC after 1 round of epinephrine per protocol ROSC, with shortness of breath and hypoxic patient was intubated currently on
--- NOTE | 2019-11-04 16:24 | PM.PNGS ---
Progress Note: A&P Assessment and Plan (1) Peritoneal dialysis catheter infection: Code(s): T85.71XA - Infection and inflammatory reaction due to peritoneal dialysis catheter, initial encounter Status: Acute Assessment and Plan: PD catheter removed on October 20. SILVA drain in LLQ still showing some greyish, serosanguineous fluid. This has been consistently draining 10 - 20 cc/day for the last few days and once almost nothing is coming out I would recommend removing it. Peritoneal fluid cultures have show yeast, Linda albicans. pt on Fluconazole. (2) Severe sepsis: Code(s): A41.9 - Sepsis, unspecified organism; R65.20 - Severe sepsis without septic shock Status: Acute Assessment and Plan: Fungal peritonitis, aspiration pneumonitis, on antifungal and anti-microbial therapy. Remains on mechanical ventilator. (3) Peritonitis: Onset Date: ~10/2019 Code(s): K65.9 - Peritonitis, unspecified Status: Acute Assessment and Plan: Should improve with peritoneal dialysis catheter removed. Continue antifungal treatment. (4) ESRD (end stage renal disease) on dialysis: Code(s): N18.6 - End stage renal disease; Z99.2 - Dependence on renal dialysis Status: Acute Assessment and Plan: Patient receiving Hemodialysis via right IJ tunneled central venous catheter. Additional Plan Will plan to follow output of the remaining SILVA drain until he goes to an LTAC. (Now about 12 cc on the LLQ drain for last 24 hours). Most likely will leave the this one in until there is almost no output. The left upper quadrant drain that was in the lesser sac was removed this date. Patient currently on Fluconazole for an antifungal. If patient goes to the LTAC I would recommend the mallory on his upper midline be removed in approximately 10 days which would be about November 12. My recommendation for the other SILVA drain is to leave it until it goes for about 24 hours with no drainage at all then pull it. Subjective Subjective Date/Time Seen: 11/04/19 07:24 patient is sitting partway up in bed when I entered the room. He is still on the ventilator through the tracheostomy. His nurse reports he has had several bowel movements in the last 24 hours. No other real changes in his condition. He is still having some serosanguineous fluid come from the left lower quadrant SILVA drain. Post Op day: 5 ( status post placement of open gastrostomy tube, postop day 14. Status post removal of PD catheter and placement of right internal jugular tunneled venous catheter for dialysis.) Review of Systems Review of Systems: ROS unobtainable: Yes unobtainable due to endotracheal tube, unobtainable due to medical condition and unobtainable due to mental status Exam Eyes: General: appearance normal, both eyes and all related structures Sclera: sclerae normal EOM: EOMs intact bilaterally Neck: Neck: normal visual inspection, full ROM, no JVD and other ( right IJ tunneled dialysis catheter dry and intact.) Lymphatic: lymphadenopathy not noted Other: Incisions on right neck clean and dry. Triple lumen central line on the left without signs of purulent exudate. Patient now has a tracheostomy tube placed by ENT. GI: Inspection: normal to inspection, incision ( Serosanguineous fluid from each SILVA drain, dressings dry.), scar and no visible herniation Auscultation: normal bowel sounds and Hypoactive bowel sounds present Rectal Exam: deferred Other: The midline incision site is without significant drainage on the dressing. Minimal if any drainage around the G-tube site. Only about 12 cc out the left lower quadrant SILVA drain last 24 hours. Minimal drainage from the old drain site in the right lower quadrant which is now just dressed with a gauze dressing. (I asked the nurse to start putting a little MATT ointment on this site now). The exit site of the left lower quadrant drain appears okay
[2019-11-04] MEDS: FLUCONAZOLE 200 MG/NACL 100 ML 200 MG/100 ML BAG 100 MG IVPB (17:07)
[2019-11-04 17:11] LABS: Glucose Point of Care 186 (65-105)
--- NOTE | 2019-11-04 22:07 | PM.CNPUL ---
Assessment and Plan Assessment and plan (1) Ventilator dependence: Code(s): Z99.11 - Dependence on respirator [ventilator] status Status: Acute Assessment and Plan: - try CPAP of 15-20 with PEEP of 5 and wean slowly every 12-24 hours - need large volume right thoracentesis if possible. last thoracentesis was only diagnostic - Abd is slightly distented and tender on exam today and hypertypmanic. Illeus may present and this may affect weaning as well. - continue minimizing sedation and allow sedation holidays as tolerated. - transfer to LTAC as soon as clinically stable. History of Present Illness History of Present Illness Consult date: 11/04/19 Chief complaint: Abdominal pain. Narrative: 78 y/o male currently in vent dependent respiratory failure who is s/p tracheostomy. He has fungal peritonitis s/p dialysis catheter removal, septic shock brief cardiogenic shock. He has a history of HTN, BPH, hypothyroidism and ESRD. He is currently vented and on CMV mode. He quickly failed weaning trial this morning and is awaiting transfer to LTAC. He still has a moderate sized right pleural effusion and some ascities. He is currently off all sedation drips. Review of Systems Review of Systems: All systems reviewed & are unremarkable except as noted in HPI and below PMFSH Past Medical History Medical History Anemia of chronic disease Arthritis Back pain Bladder tumor Resected 09/15/2019 CKD stage 5 due to type 2 diabetes mellitus (Unknown) Coronary artery disease (Unknown) With history of stent in 2008 and 2014 Diabetic peripheral neuropathy End-stage renal disease on peritoneal dialysis Managed by Dr. Lauren Glaucoma Hearing loss With bilateral hearing aids Hyperlipidemia Hypertension (Unknown) Hypothyroidism (Unknown) Hypothyroidism Insulin dependent type 2 diabetes mellitus Myocardial infarct Osteomyelitis (~05/2015) Peripheral arterial disease History of multiple bilateral lower extremity stents. Peritonitis (acute) generalized Type 2 diabetes mellitus (Unknown) Urethral stricture Status post dilatation 09/15/2019 Surgical History Surgical History Amputation of fifth toe of right foot (~05/2015) History of colonoscopy with polypectomy Reportedly had a Colonoscopy in 2019 due to his chronic diarrhea and had findings of a cancerous polyp that was completely removed during the colonoscopy. This was performed in [place]. History of heart artery stent (~10/2014) 2008 and 2014 History of surgical removal of skin lesion Top of head and face. Basal cell carcinoma History of transurethral destruction of bladder lesion 09/15/2019 History of vascular surgery Bilateral lower extremity stents. Total of 4 stents in each leg Status post cataract extraction Status post cystourethroscopy with dilation of urethral stricture 09/15/2019 Family History Family History Mother , Age 87 OH Heart disease Diabetes mellitus Cataract Father , Age 69 from Cancer Heart disease Lung cancer Sibling Diabetes mellitus Social History Social History Social History: The patient is and lives with his in [place]. They have 2 children. He served in [employer] for 3 years in [place] and is retired from factory work. He smoked up to 2 packs of cigarettes per day for about 17 years and quit in the 1970s. No alcohol or illicit substance use. He designates his , Dena, as his surrogate decision maker. Smoking packs per day: 2 Smoking cigarettes per day: 40.0 Years smoked: 17 Smoking pack-years: 34.00 Smoking status: Former smoker Tobacco type: cigarettes Alcohol intake: never Substance use: never Gender identity (if verbalized by the patien
[2019-11-05] VITALS (29 sets, daily range): BP systolic 83–128; BP diastolic 42–70; PULSE 78–116; RESP 22–32; TEMP 36.4–37.2; O2SAT 97–100
[2019-11-05] MEDS: metroNIDAZOLE 500 MG/ISO 100ML 500 MG/100 ML BAG 100 MG IVPB ×4 (00:50→18:14)
[2019-11-05 00:53] LABS: Glucose Point of Care 112 (65-105)
[2019-11-05] MEDS: CENTRAL LINE FLUSH 10 ML IV PUSH ×3 (05:11→22:05)
--- NOTE | 2019-11-05 05:30 | PCRCNOTE ---
RT WESLEY AND I ATTEMPTED ABG X3. UNABLE TO OBTAIN SPECIMEN, EVEN WHEN DOPPLER USED. PARVIZ MICHAUD AT BEDSIDE TO ASSIST, AWARE OF SITUATION.
[2019-11-05 05:31] LABS: Hematocrit 26.5 % (42.0-52.0); Hemoglobin 8.5 g/dL (14.0-18.0); Mean Corpuscular HGB Conc 32.1 g/dl (32-36); Mean Corpuscular Hemoglobin 33.9 pg (26-34); Mean Corpuscular Volume 105.6 fl (80-100); Platelet Count Result 437 k/mm3 (150-375); Red Blood Count 2.51 M/mm3 (4.6-6.20); Red Cell Distribution Width 21.6 % (11.5-14.5); White Blood Count 19.1 K/mm3 (4.5-10.0)
[2019-11-05] MEDS: LEVOTHYROXINE SODIUM 75 MCG TABLET PO (05:45)
[2019-11-05 05:55] LABS: Alanine Aminotransferase 16 U/L (4-50); Albumin Level 1.9 g/dL (3.5-5.1); Alkaline Phosphatase 292 U/L (38-126); Anion Gap 6 mmol/L (8-16); Aspartate Amino Transferase 41 U/L (17-59); Bilirubin,Total 0.3 mg/dL (0.2-1.3); Blood Urea Nitrogen 24 mg/dL (9-20); Calcium 6.7 mg/dL (8.4-10.2); Carbon Dioxide 30 mmol/L (22-30); Chloride 98 mmol/L (98-107); Estimated CRCL calculation 26 ml/min; Estimated Glomerular Filt Rate 37; Glucose 166 mg/dL (75-110); Magnesium 1.5 mg/dL (1.6-2.3); Potassium 3.6 mmol/L (3.4-5.0); Sodium 134 mmol/L (137-145)
[2019-11-05] MEDS: INSULIN GLARGINE (*BKC) 100 UNITS/ML 20 UNITS SUB-Q (07:55)
[2019-11-05] MEDS: FLUTICASONE PROPIONATE 0.05% NA SPR 16 GM BTL (*BKC) 2 SPRAY NASAL (07:56)
[2019-11-05] MEDS: ACIDOPHILUS/BULGARICUS CHEWABLE TABLET 1 TABLET PO (07:56)
[2019-11-05] MEDS: MAGNESIUM SULF 2 GM/WATER 50ML 2 GM/50 ML BAG IVPB (07:56)
[2019-11-05] MEDS: PRAVASTATIN SODIUM 20 MG TABLET 80 MG PO (07:56)
[2019-11-05] MEDS: NEOMYCIN/POLYMYXIN/BACITRACIN OINTMENT 15 GM TUBE 1 APPLIC TOPICAL (07:57)
[2019-11-05] MEDS: ASPIRIN 81 MG ENTERIC TABLET PO (07:58)
[2019-11-05] MEDS: HEPARIN SODIUM 5,000 UNITS/ML VIAL 5000 UNITS SUB-Q ×2 (07:58→22:02)
[2019-11-05] MEDS: PANTOPRAZOLE SODIUM IV 40 MG VIAL IV PUSH ×2 (07:58→22:03)
[2019-11-05] MEDS: CALCIUM CHLOR 1,000MG/100ML NS 1,000 MG/100 ML BAG 100 MG IVPB (08:07)
[2019-11-05] MEDS: SILVERGEL (ELTA) 45 ML 1 APPLIC TOPICAL (08:08)
[2019-11-05 08:10] LABS: Glucose Point of Care 144 (65-105)
--- NOTE | 2019-11-05 08:11 | PM.PNGS ---
Progress Note: A&P Assessment and Plan (1) Peritoneal dialysis catheter infection: Code(s): T85.71XA - Infection and inflammatory reaction due to peritoneal dialysis catheter, initial encounter Status: Acute Assessment and Plan: PD catheter removed on October 20. SILVA drain in LLQ still showing some greyish, serosanguineous fluid. This has been consistently draining 10 - 20 cc/day for the last few days and once almost nothing is coming out I would recommend removing it. Peritoneal fluid cultures have show yeast, Linda albicans. pt on Fluconazole. (2) Severe sepsis: Code(s): A41.9 - Sepsis, unspecified organism; R65.20 - Severe sepsis without septic shock Status: Acute Assessment and Plan: Fungal peritonitis, aspiration pneumonitis, on antifungal and anti-microbial therapy. Remains on mechanical ventilator. (3) Peritonitis: Onset Date: ~10/2019 Code(s): K65.9 - Peritonitis, unspecified Status: Acute Assessment and Plan: Should improve with peritoneal dialysis catheter removed. Continue antifungal treatment. (4) ESRD (end stage renal disease) on dialysis: Code(s): N18.6 - End stage renal disease; Z99.2 - Dependence on renal dialysis Status: Acute Assessment and Plan: Patient receiving Hemodialysis via right IJ tunneled central venous catheter. Additional Plan Will plan to follow output of the remaining SILVA drain until he goes to an LTAC. (Now about 15 cc on the LLQ drain for last 24 hours). Most likely will leave the this one in until there is almost no output. The left upper quadrant drain that was in the lesser sac was removed 11/02. Patient currently on Fluconazole for an antifungal. If patient goes to the LTAC I would recommend the mallory on his upper midline be removed in approximately 10 days which would be about November 12. My recommendation for the other SILVA drain is to leave it until it goes for about 24 hours with no drainage at all then pull it. Subjective Subjective Date/Time Seen: 11/05/19 08:11 Patient on ventilator awake and looking around. Nurse reports that when placed on spontaneous breathing trials his respiratory rate goes up into the 40s. Therefore, patient apparently is not yet ready for weaning. Also reports continuous diarrhea therefore there is a stool containment system in place. Abdomen is slightly rounded patient does not seem to be complaining of any pain. Nurse reports tube feedings are at goal and they are also giving him some proton protein fiber mix to try to help the diarrhea. Review of Systems Review of Systems: ROS unobtainable: Yes unobtainable due to endotracheal tube, unobtainable due to medical condition and unobtainable due to mental status Exam HENMT: Head: normal to inspection, normocephalic and atraumatic Ears: hearing grossly normal bilaterally and external ears normal General nose exam: no epistaxis Mouth: Yes Normal oral and palatal mucosa present and Yes moist mucous membranes Other: Patient now has tracheostomy. Nurse reports no significant bleeding around the tracheostomy site overnight. Eyes: General: appearance normal, both eyes and all related structures Sclera: sclerae normal EOM: EOMs intact bilaterally Neck: Neck: normal visual inspection, full ROM, no JVD and other ( right IJ tunneled dialysis catheter dry and intact.) Lymphatic: lymphadenopathy not noted Other: Incisions on right neck clean and dry. Triple lumen central line on the left without signs of purulent exudate. Patient now has a tracheostomy tube placed by ENT. Resp: Effort & Inspection: able to speak in complete sentences and no respiratory distress Auscultation: rhonchi right upper and diminished lung sounds (at bases) bilateral Other: Patient intubated and ventilated. Upper anterior lung findings fairly clear to auscultation bilaterally today. GI: Inspection: normal to inspection
--- NOTE | 2019-11-05 08:39 | PM.PNNEP ---
Progress Note: A&P Assessment and Plan (1) ESRD (end stage renal disease) on dialysis: Code(s): N18.6 - End stage renal disease; Z99.2 - Dependence on renal dialysis Status: Acute Assessment and Plan: dialysis was done yesterday. Blood pressure was low on the treatment. Magnesium is a little bit low so I gave him a dose of that. Unclear why the blood pressure is so low. We can try midodrine. We can try cooling the dialysate a little bit. (2) Peritonitis (acute) generalized: Code(s): K65.0 - Generalized (acute) peritonitis Status: Acute Assessment and Plan: cultures growing yeast s/p PD catheter removal and washout On micofungin Dr Rowe on the case (3) Hyponatremia: Onset Date: Unknown Code(s): E87.1 - Hypo-osmolality and hyponatremia Status: Acute Assessment and Plan: Stable. (4) Cardiorespiratory arrest: Code(s): I46.9 - Cardiac arrest, cause unspecified Status: Acute Assessment and Plan: presumably precipitated by aspiration now has a tracheostomy remains on mechanical ventilation (5) Aspiration pneumonia: Code(s): J69.0 - Pneumonitis due to inhalation of food and vomit Status: Acute Assessment and Plan: trached and on mechanical ventilation (6) Encephalopathy: Code(s): G93.40 - Encephalopathy, unspecified Status: Acute Assessment and Plan: some improvement noted continue supportive care Subjective Date/time seen: 11/05/19 08:39 Interval history: patient is on the ventilator. He is awake. Does not interact very much. Review of Systems Review of Systems: ROS unobtainable: Yes unobtainable due to endotracheal tube Exam Narrative: Exam Narrative: General: WD/WN male - intubated Heart: Irregular rhythm ; no rub Or gallop Lungs: crackles at bases and diminished breath sonds Abdomen: soft, nontender, nondistended, positive bowel sounds Extremities: no cyanosis or clubbing; 1 to 2+ edema Skin: no rash Objective Data Vital Signs Vital Signs: Vital Signs - 24 hr 11/04/19 10:00 11/04/19 10:30 11/04/19 12:00 Temperature 37.3 C Pulse Rate 108 H 106 H 104 H Respiratory Rate 27 H 24 H Blood Pressure 98/69 L 115/49 L Pulse Oximetry 100 100 100 11/04/19 14:00 11/04/19 14:25 11/04/19 15:44 Temperature Pulse Rate 104 H 104 H 104 H Respiratory Rate 18 18 Blood Pressure 106/67 Pulse Oximetry 100 100 100 11/04/19 16:00 11/04/19 16:39 11/04/19 18:00 Temperature 37.0 C Pulse Rate 105 H 103 H 103 H Respiratory Rate 28 H 34 H Blood Pressure 100/59 L 114/53 L Pulse Oximetry 99 100 100 11/04/19 20:00 11/04/19 20:40 11/04/19 21:15 Temperature 36.9 C 36.3 C L Pulse Rate 108 H 108 H 101 H Respiratory Rate 32 H 32 H Blood Pressure 102/47 L 122/57 L Pulse Oximetry 100 100 99 11/04/19 21:25 11/04/19 21:30 11/04/19 21:45 Temperature Pulse Rate 100 103 H 111 H Respiratory Rate Blood Pressure 112/58 L 105/61 85/26 L Pulse Oximetry 11/04/19 22:00 11/04/19 22:15 11/04/19 22:30 Temperature Pulse Rate 110 H 101 H 103 H Respiratory Rate 33 H Blood Pressure 109/59 L 86/58 L 122/69 Pulse Oximetry 100 11/04/19 22:45 11/04/19 23:00 11/04/19 23:15 Temperature Pulse Rate 103 H 102 H 105 H Respiratory Rate Blood Pressure 120/90 105/89 133/116 H Pulse Oximetry 100 11/04/19 23:30 11/04/19 23:45 11/05/19 00:00 Temperature 36.4 C Pulse Rate 113 H 110 H 108 H Respiratory Rate 32 H Blood Pressure 128/77 96/59 L 90/64 L Pulse Oximetry 100 11/05/19 00:15 11/05/19 00:30 11/05/19 00:41 Temperature 36.4 C Pulse Rate 104 H 100 105 H Respiratory Rate 32 H Blood Pressure 98/63 L 92/56 L 107/58 L Pulse Oximetry 100 11/05/19 02:00 11/05/19 02:16 11/05/19 04:00 Temperature 37.2 C Pulse Rate 107 H 113 H 116 H Respiratory Rate 32 H 32 H Bloo
--- NOTE | 2019-11-05 10:42 | PM.PNPUL ---
Progress Note: A&P Assessment and Plan (1) Ventilator dependence: Code(s): Z99.11 - Dependence on respirator [ventilator] status Status: Acute Assessment and Plan: Recommend PSV with CPAP 15-20 and PEEP of 5 and weaning very slowly every 12-24 hours. - ABD less distended today. less tender. (2) Pleural effusion: Code(s): J90 - Pleural effusion, not elsewhere classified Status: Acute Assessment and Plan: - right pleural effusion needs another evulation by US or CT chest. if loculated needs chest tube. WBC increasing BP is low at times. Monitor for recurrent sepsis. Would suggest another diagnostic/therapeutic thoracentesis Subjective Date/time seen: 11/05/19 10:42 Interval history: Still on CMV this morning. CXR on 11/02 still shows moderate right pleural effusion with atelectesis vs pneumonia vs loculation. WBC increasing and becoming hypotensive. Oxygen demands are stable and minimal. Appears more awake today Review of Systems Review of Systems: All systems reviewed & are unremarkable except as noted in HPI and below Exam Const: General: comfortable and no acute distress Neck: Neck: supple and no JVD Resp: Auscultation: diminished lung sounds Cardio: Rate: regular rate Rhythm: regular rhythm Heart sounds: no murmurs GI: Inspection: distended GI Palp: Yes Firmness to palpation present (GI) Percussion: Yes tympanic to percussion Auscultation: normal bowel sounds Skin: General skin exam: normal color and no rashes or lesions noted Extrem: General: normal to inspection Objective Data Vital Signs Vital Signs: Vital Signs - 24 hr 11/04/19 12:00 11/04/19 14:00 11/04/19 14:25 Temperature 37.3 C Pulse Rate 104 H 104 H 104 H Respiratory Rate 24 H 18 Blood Pressure 115/49 L 106/67 Pulse Oximetry 100 100 100 11/04/19 15:44 11/04/19 16:00 11/04/19 16:39 Temperature 37.0 C Pulse Rate 104 H 105 H 103 H Respiratory Rate 18 28 H Blood Pressure 100/59 L Pulse Oximetry 100 99 100 11/04/19 18:00 11/04/19 20:00 11/04/19 20:40 Temperature 36.9 C Pulse Rate 103 H 108 H 108 H Respiratory Rate 34 H 32 H Blood Pressure 114/53 L 102/47 L Pulse Oximetry 100 100 100 11/04/19 21:15 11/04/19 21:25 11/04/19 21:30 Temperature 36.3 C L Pulse Rate 101 H 100 103 H Respiratory Rate 32 H Blood Pressure 122/57 L 112/58 L 105/61 Pulse Oximetry 99 11/04/19 21:45 11/04/19 22:00 11/04/19 22:15 Temperature Pulse Rate 111 H 110 H 101 H Respiratory Rate 33 H Blood Pressure 85/26 L 109/59 L 86/58 L Pulse Oximetry 100 11/04/19 22:30 11/04/19 22:45 11/04/19 23:00 Temperature Pulse Rate 103 H 103 H 102 H Respiratory Rate Blood Pressure 122/69 120/90 105/89 Pulse Oximetry 11/04/19 23:15 11/04/19 23:30 11/04/19 23:45 Temperature Pulse Rate 105 H 113 H 110 H Respiratory Rate Blood Pressure 133/116 H 128/77 96/59 L Pulse Oximetry 100 11/05/19 00:00 11/05/19 00:15 11/05/19 00:30 Temperature 36.4 C Pulse Rate 108 H 104 H 100 Respiratory Rate 32 H Blood Pressure 90/64 L 98/63 L 92/56 L Pulse Oximetry 100 11/05/19 00:41 11/05/19 02:00 11/05/19 02:16 Temperature 36.4 C Pulse Rate 105 H 107 H 113 H Respiratory Rate 32 H 32 H Blood Pressure 107/58 L 93/63 L Pulse Oximetry 100 100 100 11/05/19 04:00 11/05/19 04:04 11/05/19 04:30 Temperature 37.2 C Pulse Rate 116 H 109 H Respiratory Rate 32 H Blood Pressure 86/48 L 102/47 L Pulse Oximetry 100 100 11/05/19 06:00 11/05/19 06:10 11/05/19 08:00 Temperature 37.0 C Pulse Rate 103 H 107 H Respiratory Rate 32 H 26 H Blood Pressure 83/51 L 90/51 L 107/58 L Pulse Oximetry 100 100 11/05/19 08:42 11/05/19 09:08 11/05/19 10:00 Temperature Pulse Rate 106 H 106 H 106 H Respiratory Rate 26 H 22 H Blood Pressure 104/61 Pulse Oximetry 100 100 100 Intake/Output Intake/Output: Intake & Output 11/02/19 11/03/19 11/04/19
--- NOTE | 2019-11-05 10:58 | PCDIET ---
ICU Rounding Note: Patient remains on Nepro at 40mL/hr with Pro-Stat flush TID. Last recorded weight is 74.4kg which is increased from last review. Last dialysis only removed 500mL, per nursing. Bowel Motility: Continues with FMS for diarrhea. Currently on Lactinex. sending stool for c. diff. Suggested Banatrol via g-tube. Labs Reviewed: Hgb (8.5), Hct (26.5), Glu (144), BUN (24), Cr (1.8), Na (134), Alb (1.9), Mg (1.5), Ade Ca (8.38) Meds Noted: Albumin, Novolog, Lantus, Midodrine, Albuterol, Atrovent, Synthroid, Calcium Chloride, Magnesium Sulfate, Fentanyl, Lactinex, Flagyl, Protonix Additional Notes: No change in wounds, per RN. Will continue to monitor. Following daily in ICU rounds. Assessing/reassessing every Saturday/Saturday.
[2019-11-05 11:13] LABS: Glucose Point of Care 162 (65-105)
--- NOTE | 2019-11-05 11:43 | P.PNINT_ITS ---
Progress Note: A&P Assessment and Plan (1) Acute respiratory failure: Code(s): J96.00 - Acute respiratory failure, unspecified whether with hypoxia or hypercapnia Status: Acute Assessment and Plan: - patient on mechanical ventilation and failure to wean - patient now status post tracheostomy on 10/30/2019 - patient had a a ultrasound-guided thoracentesis done on right and 150 mL fluid was removed - I tried patient on pressure support ventilation for a weaning trial. Patient failed within 5 minutes with a high respiratory rate in 40s and tidal volume dropped to 100-200 cc and patient was in obvious respiratory distress. - Continue CMV at this time. Patient does not tolerate ASV mode with respiratory rate and peak pressure is going up. - Continue physical and occupational therapy work with the patient - consulted pulmonary to meet requirements for LTAC placement (2) Severe sepsis: Code(s): A41.9 - Sepsis, unspecified organism; R65.20 - Severe sepsis without septic shock Status: Acute Assessment and Plan: septic shock secondary to fungal peritonitis and PNA . Improving/resolving - OFF LEVOPHED since 2:00 a.m. on 10/16/2019 - peritoneal cultures growing Yeast - continue IV metronidazole and fluconazole per infectious disease - now off all antibacterials - CT scan of the abdomen and pelvis on 10/16 showed interval progression of patchy bilateral airspace disease, compatible pneumonia. Bilateral pleural effusions right greater than left moderate ascites which appears loculated the left upper abdomen, cannot exclude peritonitis, abdominal wall thickening suspicious for cystitis. peritoneal dialysis catheter present in the pelvis - 10/19/2019 peritoneal fluid Gram stain , no organism seen - 10/19/2019 peritoneal fluid culture, growing Linda albicans - 10/18/2019 blood cultures negative x2 - 10/21/2019 repeat peritoneal cultures and peritoneal catheter cultures growing Linda albicans (3) Peritonitis: Onset Date: ~10/2019 Code(s): K65.9 - Peritonitis, unspecified Status: Acute Assessment and Plan: Linda peritonitis - status post removal of peritoneal dialysis catheter on 10/21/2019, Catheter and peritoneal fluid sent for culture - SILVA drains x1 draining minimal amount of serosanguineous fluid, surgery following the patient - 2nd SILVA drain was removed yesterday - continue IV fluconazole per infectious disease (4) Aspiration pneumonia: Code(s): J69.0 - Pneumonitis due to inhalation of food and vomit Status: Acute Assessment and Plan: completed course of antibiotics (5) Encephalopathy: Code(s): G93.40 - Encephalopathy, unspecified Status: Acute Assessment and Plan: - gradually improving - continue to hold sedation - encephalopathy likely multifactorial related to metabolic /uremic encephalopathy, infectious encephalopathy, medication related - neurology has been consulted and appreciate their evaluation and recommendations - EEG was done on 10/20/2019 and discussed with Neurology, EEG had significant slowing, likely related to severe encephalopathy. No epileptiform discharges were seen - patient did have a CT scan of the brain on 10/18/2019: was negative for any acute intracranial pathology (6) Cardiorespiratory arrest: Code(s): I46.9 - Cardiac arrest, cause unspecified Status: Acute Assessment and Plan: PEA arrest likely due aspiration,ROSC after 1 round of epinephrine - post arrest pt was following commands and so did not require hypothermia protocol
--- NOTE | 2019-11-05 14:31 | PM.IMPN ---
Progress Note: A&P Assessment and Plan (1) Septic shock: Code(s): A41.9 - Sepsis, unspecified organism; R65.21 - Severe sepsis with septic shock Status: Deleted Assessment and Plan: 11/05/19 14:31 patient is 78-year-old male with history of end-stage renal disease on peritoneal dialysis presented emergency department had a cardiac arrest ROSC after 1 round of epinephrine per protocol ROSC, with shortness of breath and hypoxic patient was intubated currently on vent, patient may have aspirated pneumonia, patient in septic shock and on pressor, patient being treated with Levaquin, vancomycin and Flagyl, discussed with restaurant area director prognosis is poor we appreciate restaurant area director, patient is seen by Dr. Aguilar nephrology for peritoneal dialysis, Fire Alarm Dispatcher had spoken with patient's , she would like to keep full code and continue to treat the patient. septic shock resolved and patient is off Levophed, septic shock most likely secondary to aspiration pneumonia possibly peritonitis and treated with Flagyl cefepime and ceftazidime intraperitoneal by nephrology, patient is his leukocytosis etiology uncertain seen by Dr. Rowe and restaurant area director, stopped all antibiotic and has started the patient vancomycin and aztreonam, meanwhile patient was seen by surgery and peritoneal dialysis catheter was removed and now patient is on hemodialysis, unable to wean the patient off the ventilator, once PEG and trach fully establised, pt to be transferred to LTAC patient however LTAC is reluctant to accept the patient because of poor prognosis and may not be able to wean off the ventilator requesting pulmonary evaluation and their recommendation, patient is seen by visiting housekeeper concerned for persistent pleural effusion recommending thoracentesis and to further evaluate with CT scan to rule out loculated effusion. prognosis is poor (2) Cardiorespiratory arrest: Code(s): I46.9 - Cardiac arrest, cause unspecified Status: Acute Assessment and Plan: Sp cardioarrest (3) Aspiration pneumonia: Code(s): J69.0 - Pneumonitis due to inhalation of food and vomit Status: Acute Assessment and Plan: Patient had aspirated resulting in pneumonia and septic shock secondary to fungal peritonitis and PNA See ID recommendations (4) Atrial fibrillation: Onset Date: ~09/2019 Code(s): I48.91 - Unspecified atrial fibrillation Status: Acute (5) Hyponatremia: Onset Date: Unknown Code(s): E87.1 - Hypo-osmolality and hyponatremia Status: Acute Assessment and Plan: Rate is controlled (6) Abnormal computed tomography of abdomen and pelvis: Code(s): R93.5 - Abnormal findings on diagnostic imaging of other abdominal regions, including retroperitoneum Status: Acute Assessment and Plan: Suspect peritonitis (7) Peritonitis (acute) generalized: Code(s): K65.0 - Generalized (acute) peritonitis Status: Acute Assessment and Plan: Patient on peritoneal dialysis,patient is being treated with antibiotics and septic shock secondary to fungal peritonitis and PNA See ID recommendations (8) Peritoneal dialysis catheter infection: Code(s): T85.71XA - Infection and inflammatory reaction due to peritoneal dialysis catheter, initial encounter Status: Acute Assessment and Plan: Septic shock secondary to fungal peritonitis and PNA, see IDrecommendations POD#11 s/p removal of PD catheter for peritonitis (9) Encephalopathy: Code(s): G93.40 - Encephalopathy, unspecified Status: Acute Assessment and Plan: Encephalopathy and septic shock secondary to fungal peritonitis and Pneumonia see ID recommendations Subjective Date/time seen: 11/05/19 14:31 patient is 78-year-old male with history of end-stage renal disease on peritoneal dialysis presented emergency department had a cardiac arrest ROSC after 1 round of epine
[2019-11-05 17:25] LABS: Glucose Point of Care 173 (65-105)
[2019-11-05] MEDS: CENTRAL LINE FLUSH 20 ML IV PUSH (22:05)
[2019-11-06] VITALS (44 sets, daily range): BP systolic 77–141; BP diastolic 39–97; PULSE 67–120; RESP 14–35; TEMP 35.5–37.1; O2SAT 92–100
[2019-11-06] MEDS: metroNIDAZOLE 500 MG/ISO 100ML 500 MG/100 ML BAG 100 MG IVPB ×4 (00:06→18:41)
[2019-11-06 00:19] LABS: Glucose Point of Care 171 (65-105)
[2019-11-06 05:02] LABS: Alveolar/Arterial O2 Gradient 78.6 mmHg; Base Excess ABG 1.8 mEq/l (+/-2.0); Carboxyhemoglobin 0.3 % THb (0-2.0); Fractional Inspired Oxygen 30 %; HCO3 ABG 25.9 mEq/l (22.0-26.0); Methemoglobin ABG 0.3 %THb (0-1.5); Oxygen Saturation ABG 97.2 % (95.0-100.0); Oxyhemoglobin 95.5 % THb (90.0-100.0); PCO2 ABG 38.7 mmHg (35.0-45.0); PO2 ABG 89.8 mmHg (80.0-100.0); PO2 FiO2 Ratio Arterial Blood 2.99 %; Reduced Hemoglobin 3.9 %THb (0-5.0); Total Hemoglobin 10.3 g/dL (12.0-18.0); pH ABG 7.444 (7.350-7.450)
[2019-11-06 05:04] LABS: Device VENTILATOR; Modified Allen's Test Pass; Site Drawn RIGHT RADIAL
[2019-11-06 05:05] LABS: Arterial Blood Gas PEEP 5 cmH2O; Arterial Blood Gas Tidal Volume 300 ml; Arterial Blood Gas Vent Mode CMV; Arterial Blood Gas Ventilator rate 18 /MIN
[2019-11-06 05:19] LABS: Prealbumin 4.7 mg/dL (17.6-36.0)
[2019-11-06] MEDS: LEVOTHYROXINE SODIUM 75 MCG TABLET PO (05:46)
[2019-11-06 06:07] LABS: Glucose Point of Care 179 (65-105)
[2019-11-06 06:07] LABS: Glucose Point of Care 195 (65-105)
[2019-11-06] MEDS: CENTRAL LINE FLUSH 10 ML IV PUSH ×3 (06:39→20:39)
[2019-11-06] MEDS: ASPIRIN 81 MG ENTERIC TABLET PO (08:31)
[2019-11-06] MEDS: PANTOPRAZOLE SODIUM IV 40 MG VIAL IV PUSH ×2 (08:31→20:38)
[2019-11-06] MEDS: PRAVASTATIN SODIUM 20 MG TABLET 80 MG PO (08:31)
[2019-11-06] MEDS: FLUTICASONE PROPIONATE 0.05% NA SPR 16 GM BTL (*BKC) 2 SPRAY NASAL (08:32)
[2019-11-06] MEDS: HEPARIN SODIUM 5,000 UNITS/ML VIAL 5000 UNITS SUB-Q (08:32)
[2019-11-06] MEDS: ACIDOPHILUS/BULGARICUS CHEWABLE TABLET 1 TABLET PO (08:32)
[2019-11-06] MEDS: MIDODRINE HCL 10 MG TABLET PO (08:37)
[2019-11-06] MEDS: SILVERGEL (ELTA) 45 ML 1 APPLIC TOPICAL (08:52)
[2019-11-06] MEDS: NEOMYCIN/POLYMYXIN/BACITRACIN OINTMENT 15 GM TUBE 1 APPLIC TOPICAL (08:52)
[2019-11-06] MEDS: INSULIN GLARGINE (*BKC) 100 UNITS/ML 20 UNITS SUB-Q (09:02)
[2019-11-06 09:23] LABS: Basophils Absolute Auto 0.2 K/mm3 (0.0-0.1); Basophils Percent Auto 0.8 % (0.2-1.2); Eosinophils Absolute Auto 0.2 K/mm3 (0-0.3); Eosinophils Percent Auto 0.9 % (0-4.4); Hematocrit 27.5 % (42.0-52.0); Hemoglobin 8.5 g/dL (14.0-18.0); Immature Granulocyte Absolute 0.36 K/mm3 (0.00-0.031); Immature Granulocyte Percent A 1.9 % (0-0.5); Lymphocytes Absolute Auto 2.29 K/mm3 (0.9-3.2); Mean Corpuscular HGB Conc 30.9 g/dl (32-36); Mean Corpuscular Hemoglobin 32.8 pg (26-34); Mean Corpuscular Volume 106.2 fl (80-100); Mean Platelet Volume 11.2 fl (7.4-10.4); Monocytes Absolute Auto 1.7 K/mm3 (0.1-0.6); Monocytes Percent Auto 8.7 % (2.6-8.5); Neutrophils Absolute Auto 14.4 K/mm3 (1.3-6.7); Neutrophils Percent Auto 75.7 % (45.5-73.1); Platelet Count Result 452 k/mm3 (150-375); Red Blood Count 2.59 M/mm3 (4.6-6.20); Red Cell Distribution Width 21.9 % (11.5-14.5); White Blood Count 19.1 K/mm3 (4.5-10.0)
[2019-11-06 09:36] LABS: Anion Gap 8 mmol/L (8-16); Blood Urea Nitrogen 44 mg/dL (9-20); Carbon Dioxide 27 mmol/L (22-30); Chloride 100 mmol/L (98-107); Estimated CRCL calculation 19 ml/min; Estimated Glomerular Filt Rate 25; Glucose 191 mg/dL (75-110); Magnesium 2.1 mg/dL (1.6-2.3); Potassium 3.3 mmol/L (3.4-5.0); Sodium 135 mmol/L (137-145)
--- NOTE | 2019-11-06 09:59 | PM.PNGS ---
Progress Note: A&P Assessment and Plan (1) Peritoneal dialysis catheter infection: Code(s): T85.71XA - Infection and inflammatory reaction due to peritoneal dialysis catheter, initial encounter Status: Acute Assessment and Plan: PD catheter removed on October 20. SILVA drain in LLQ still showing some greyish, serosanguineous fluid. This has been consistently draining 10 - 20 cc/day for the last few days and once almost nothing is coming out I would recommend removing it. Peritoneal fluid cultures have show yeast, Linda albicans. pt soon will finish a course of Fluconazole. (2) Severe sepsis: Code(s): A41.9 - Sepsis, unspecified organism; R65.20 - Severe sepsis without septic shock Status: Acute Assessment and Plan: Fungal peritonitis, aspiration pneumonitis, on antifungal and anti-microbial therapy. Remains on mechanical ventilator. (3) Peritonitis: Onset Date: ~10/2019 Code(s): K65.9 - Peritonitis, unspecified Status: Acute Assessment and Plan: Should improve with peritoneal dialysis catheter removed. Continue antifungal treatment. (4) ESRD (end stage renal disease) on dialysis: Code(s): N18.6 - End stage renal disease; Z99.2 - Dependence on renal dialysis Status: Acute Assessment and Plan: Patient receiving Hemodialysis via right IJ tunneled central venous catheter. Additional Plan Will plan to follow output of the remaining SILVA drain until he goes to an LTAC. (Now about 5 cc out from the LLQ drain for last 24 hours). Most likely will leave the this one in until there is almost no output. The left upper quadrant drain that was in the lesser sac was removed 11/02. Patient currently on Fluconazole for an antifungal. I will be off this weekend. I have discussed this with Dr. Cerna our slotter operator. He will call Dr. Decker regarding any surgical problems but we will not see him routinely over the weekend. If patient goes to the LTAC I would recommend the mallory on his upper midline be removed in approximately 10 days which would be about November 12. My recommendation for the other SILVA drain is to leave it until it goes for about 24 hours with no drainage at all then pull it. Subjective Subjective Date/Time Seen: 11/06/19 10:00 Post Op day: POD#7 Patient reports: no new complaints Interval history: Patient is on the ventilator still through a tracheostomy. nurse states that he is doing okay. Currently receiving hemodialysis. Hemodialysis tacks states there is no problems with his tunneled right internal jugular central line at the moment. Patient's nurse states the tube feedings are going well. However, I noticed that his pre-albumin is still very low at 4.5 checked this morning. Therefore, will have the nurse and the ICU team consider increasing his goal rate on his tube feedings least 10 cc per hour to see if we can catch up on his nutrition some. This may contribute to his it ability to wean from the ventilator. Review of Systems Review of Systems: ROS unobtainable: Yes unobtainable due to endotracheal tube, unobtainable due to medical condition and unobtainable due to mental status Exam Const: General: no acute distress Eyes: General: appearance normal, both eyes and all related structures Sclera: sclerae normal EOM: EOMs intact bilaterally Neck: Neck: normal visual inspection, full ROM, no JVD and other ( right IJ tunneled dialysis catheter dry and intact.) Lymphatic: lymphadenopathy not noted Other: Incisions on right neck clean and dry. Triple lumen central line on the left without signs of purulent exudate. Patient now has a tracheostomy tube placed by ENT. GI: Inspection: normal to inspection, incision ( Serosanguineous fluid from each SILVA drain, dressings dry.), scar and no visible herniation Auscultation: normal bowel sounds and Hypoactive bowel sounds present Rectal Exam: deferred Other: The m
--- NOTE | 2019-11-06 11:04 | PCDIET ---
Nutrition Follow-Up Complete: Nutrition Diagnosis: Inadequate oral intake related to oral intubation as evidenced by NPO status. Nutrition Goal: Patient to meet estimated nutritional needs. Goal met. Patient tolerating Nepro at 40mL/hr goal rate with Pro-Stat TID. Surgery suggested increasing tube feeding rate, per RN. Current tube feedings meet estimated needs, though increase could be considered, given low prealbumin (although also negative acute phase reactant), as long as patient can tolerate fluid removal in dialysis. Rate of 50mL/hr Nepro x 22 hours/day with Pro-Stat flush TID would provide 2280kcal, 134g protein (1.8g/kg) and 799mL free water. Would continue 30mL water flush every 4-6 hours. Recommend K+ replacement, as medically appropriate. Last recorded weight is 74.2 kg which is stable. Bowel Motility: FMS remains in place for diarrhea. MD ordering Loperamide. Labs Reviewed: Hgb (8.5), Hct (27.5), Glu (191), BUN (44), Cr (2.5), K (3.3), Na (135), Prealb (4.7) Meds Noted: Protonix, Midodrine, Flagyl, Synthroid, Lactinex, Atrovent, Lantus, Novolog, Fentanyl, Retacrit, Albuterol, Albumin Additional Notes: No change in skin reported. Will continue to monitor with same goal. Nutrition Monitoring and Evaluation: Follow up every Saturday/Saturday. Follow daily in ICU rounds.
--- NOTE | 2019-11-06 11:20 | PM.PNPUL ---
Progress Note: A&P Assessment and Plan (1) Ventilator dependence: Code(s): Z99.11 - Dependence on respirator [ventilator] status Status: Acute Assessment and Plan: Recommend PSV with CPAP 15-20 and PEEP of 5 and weaning very slowly every 12-24 hours. Recommend avoiding SIMV mode - ABD still a bit distendend and mildly tender diffusely, likely from peritonitis - Atrovent 0.5 mg Nebs Q6h added today (2) Pleural effusion: Code(s): J90 - Pleural effusion, not elsewhere classified Status: Acute Assessment and Plan: - right pleural effusion needs another evulation by US or CT chest. if loculated needs chest tube. WBC increasing BP is low at times. Monitor for recurrent sepsis. Would suggest another diagnostic/therapeutic thoracentesis Time Spent With Patient Time with patient: 15 - 25 minutes Subjective Date/time seen: 11/06/19 11:20 Interval history: Stable. Still tachpnic with bilateral rhonci, recieving dialysis this morning. Awake and alert on the vent via tracheostomy. Review of Systems Review of Systems: All systems reviewed & are unremarkable except as noted in HPI and below Exam Const: General: comfortable and no acute distress Neck: Neck: supple and no JVD Resp: Auscultation: diminished lung sounds Cardio: Rate: regular rate Rhythm: regular rhythm Heart sounds: no murmurs GI: Inspection: distended GI Palp: Yes Firmness to palpation present (GI) Percussion: Yes tympanic to percussion Auscultation: normal bowel sounds Skin: General skin exam: normal color and no rashes or lesions noted Extrem: General: normal to inspection Objective Data Vital Signs Vital Signs: Vital Signs - 24 hr 11/05/19 11:40 11/05/19 12:00 11/05/19 14:00 Temperature 36.9 C Pulse Rate 96 102 H 100 Respiratory Rate 29 H 22 H Blood Pressure 105/42 L 110/70 Pulse Oximetry 100 100 100 11/05/19 15:47 11/05/19 16:00 11/05/19 16:50 Temperature 37.0 C Pulse Rate 96 95 94 Respiratory Rate 30 H 30 H Blood Pressure 115/57 L Pulse Oximetry 100 100 100 11/05/19 17:57 11/05/19 18:00 11/05/19 20:00 Temperature 36.9 C Pulse Rate 94 92 92 Respiratory Rate 30 H 22 H Blood Pressure 128/68 123/58 L Pulse Oximetry 100 97 11/05/19 20:04 11/05/19 22:00 11/05/19 23:00 Temperature 37.0 C Pulse Rate 95 90 95 Respiratory Rate 24 H Blood Pressure 106/61 Pulse Oximetry 100 98 99 11/05/19 23:35 11/06/19 00:00 11/06/19 01:52 Temperature 36.6 C Pulse Rate 88 90 Respiratory Rate 25 H Blood Pressure 105/52 L Pulse Oximetry 99 100 11/06/19 02:00 11/06/19 02:12 11/06/19 04:00 Temperature 37.1 C 37.0 C Pulse Rate 86 88 90 Respiratory Rate 25 H 27 H Blood Pressure 106/41 L 117/70 Pulse Oximetry 97 95 98 11/06/19 05:07 11/06/19 06:00 11/06/19 08:00 Temperature 37.0 C Pulse Rate 84 92 86 Respiratory Rate 21 H Blood Pressure 106/69 Pulse Oximetry 97 100 100 11/06/19 08:15 11/06/19 08:34 11/06/19 08:36 Temperature 36.6 C Pulse Rate 95 91 94 Respiratory Rate 14 Blood Pressure 122/63 118/97 H Pulse Oximetry 100 100 11/06/19 08:45 11/06/19 09:00 11/06/19 09:15 Temperature Pulse Rate 93 93 90 Respiratory Rate Blood Pressure 112/76 102/72 93/61 L Pulse Oximetry 11/06/19 09:30 11/06/19 09:45 11/06/19 10:00 Temperature 36.3 C L Pulse Rate 102 H 110 H 108 H Respiratory Rate 34 H Blood Pressure 109/59 L 124/69 135/63 Pulse Oximetry 92 11/06/19 10:15 11/06/19 10:30 11/06/19 10:45 Temperature Pulse Rate 120 H 114 H 116 H Respiratory Rate Blood Pressure 135/53 L 104/59 L 119/63 Pulse Oximetry 11/06/19 11:00 11/06/19 11:15 Temperature Pulse Rate 109 H 106 H Respiratory Rate Blood Pressure 103/52 L 98/43 L Pulse Oximetry Intake/Output Intake/Output: Intake & Output 11/03/19 11/04/19 11/05/19 11/06/19 23:59 23:59 23:59 23:59 Intake Total 3934 0469 1618 1070 Output Total 22
[2019-11-06] MEDS: EPOETIN ALFA-EPBX 10,000 UNITS/ML VIAL 10000 UNITS IV PUSH (11:44)
[2019-11-06 11:47] LABS: Glucose Point of Care 130 (65-105)
--- NOTE | 2019-11-06 11:49 | WPDINTPN ---
Progress Note: A&P Assessment and Plan (1) Acute respiratory failure: Code(s): J96.00 - Acute respiratory failure, unspecified whether with hypoxia or hypercapnia Status: Acute Assessment and Plan: - patient on mechanical ventilation and failure to wean - patient now status post tracheostomy on 10/30/2019 - patient had a a ultrasound-guided thoracentesis done on 10/26 on right and 150 mL fluid was removed which was negative for any Gram stain or culture. Will discuss with Pulmonary again - I tried patient on pressure support ventilation for a weaning trial. Patient failed within 5 minutes with a high respiratory rate in 40s and tidal volume dropped to 100-200 cc and patient was in obvious respiratory distress. - Continue CMV at this time. Patient does not tolerate ASV mode with respiratory rate and peak pressure is going up. - Continue physical and occupational therapy work with the patient - patient seen by Pulmonary. - awaits LTAC placement - will try pressure support ventilation after hemodialysis today (2) Severe sepsis: Code(s): A41.9 - Sepsis, unspecified organism; R65.20 - Severe sepsis without septic shock Status: Acute Assessment and Plan: septic shock secondary to fungal peritonitis and PNA . Improving/resolving - OFF LEVOPHED since 2:00 a.m. on 10/16/2019 - peritoneal cultures growing Yeast - continue IV metronidazole and fluconazole per infectious disease - now off all antibacterials - CT scan of the abdomen and pelvis on 10/16 showed interval progression of patchy bilateral airspace disease, compatible pneumonia. Bilateral pleural effusions right greater than left moderate ascites which appears loculated the left upper abdomen, cannot exclude peritonitis, abdominal wall thickening suspicious for cystitis. peritoneal dialysis catheter present in the pelvis - 10/19/2019 peritoneal fluid Gram stain , no organism seen - 10/19/2019 peritoneal fluid culture, growing Linda albicans - 10/18/2019 blood cultures negative x2 - 10/21/2019 repeat peritoneal cultures and peritoneal catheter cultures growing Linda albicans (3) Peritonitis: Onset Date: ~10/2019 Code(s): K65.9 - Peritonitis, unspecified Status: Acute Assessment and Plan: Linda peritonitis - status post removal of peritoneal dialysis catheter on 10/21/2019, Catheter and peritoneal fluid sent for culture - SILVA drains x1 draining minimal amount of serosanguineous fluid, surgery following the patient. Dr. Levi wants to remove the drain once output is close to 0 - 2nd SILVA drain was removed - continue IV fluconazole per infectious disease (4) Aspiration pneumonia: Code(s): J69.0 - Pneumonitis due to inhalation of food and vomit Status: Acute Assessment and Plan: completed course of antibiotics (5) Encephalopathy: Code(s): G93.40 - Encephalopathy, unspecified Status: Acute Assessment and Plan: - gradually improving - continue to hold sedation - encephalopathy likely multifactorial related to metabolic /uremic encephalopathy, infectious encephalopathy, medication related - neurology has been consulted and appreciate their evaluation and recommendations - EEG was done on 10/20/2019 and discussed with Neurology, EEG had significant slowing, likely related to severe encephalopathy. No epileptiform discharges were seen - patient did have a CT scan of the brain on 10/18/2019: was negative for any acute intracranial pathology (6) Cardiorespiratory arrest: Code(s): I46.9 - Cardiac arrest, cause unspecified Status: Acute Assessment and Plan: PEA arrest likely due aspiration,ROSC after 1 round of epinephrine - post arrest pt was following commands and so did not require hypothermia protocol - trops elevated to 0.40 likely due to cardiac arrest and renal failure (7) Colitis: Code(s): K52.9 - Noninfective ga
[2019-11-06] MEDS: IPRATROPIUM BR 0.02% INH SOLN 0.5 MG/2.5 ML VIAL INHALATION ×4 (12:06→23:00)
--- NOTE | 2019-11-06 12:17 | PM.PNNEP ---
Progress Note: A&P Assessment and Plan (1) ESRD (end stage renal disease) on dialysis: Code(s): N18.6 - End stage renal disease; Z99.2 - Dependence on renal dialysis Status: Acute Assessment and Plan: HD today and continue M/W/F schedule for now Blood pressure usually runs low on the treatment started on midodrine to compensate (2) Peritonitis (acute) generalized: Code(s): K65.0 - Generalized (acute) peritonitis Status: Acute Assessment and Plan: cultures growing yeast s/p PD catheter removal and washout On micofungin Dr Rowe on the case (3) Hyponatremia: Onset Date: Unknown Code(s): E87.1 - Hypo-osmolality and hyponatremia Status: Acute Assessment and Plan: Stable. (4) Cardiorespiratory arrest: Code(s): I46.9 - Cardiac arrest, cause unspecified Status: Acute Assessment and Plan: presumably precipitated by aspiration now has a tracheostomy remains on mechanical ventilation (5) Encephalopathy: Code(s): G93.40 - Encephalopathy, unspecified Status: Acute Assessment and Plan: some improvement noted continue supportive care Will continue to follow. Subjective Date/time seen: 11/06/19 12:17 Chart reviewed since I last saw him -- tolerating dialysis treatment reasonably well at the time of my visit (seen on HD at ~ 12:00PM); he is s/p tracheostomy and open G-tube placement; working towards discharge to LTACH. Exam Narrative: Exam Narrative: General: WD/WN male in NAD; s/p tracheostomy Heart: irregular rhythm; no rub Lungs: crackles at bases and diminished breath sounds Abdomen: soft, nontender, nondistended, positive bowel sounds Extremities: no cyanosis or clubbing; 1 to 2+ edema Skin: no nodules Objective Data Vital Signs Vital Signs: Vital Signs Temp Pulse Resp BP Pulse Ox 11/06/19 12:07 103 H 103/61 11/06/19 12:00 36.2 C L 106 H 35 H 77/63 L 100 11/06/19 11:45 104 H 119/61 11/06/19 11:30 103 H 96/39 L 11/06/19 11:15 106 H 98/43 L 11/06/19 11:00 109 H 103/52 L 11/06/19 10:45 116 H 119/63 11/06/19 10:30 114 H 104/59 L 11/06/19 10:15 120 H 135/53 L 11/06/19 10:00 36.3 C L 108 H 34 H 135/63 92 11/06/19 09:45 110 H 124/69 11/06/19 09:30 102 H 109/59 L 11/06/19 09:15 90 93/61 L 11/06/19 09:00 93 102/72 11/06/19 08:45 93 112/76 11/06/19 08:36 94 118/97 H 11/06/19 08:34 91 100 11/06/19 08:15 36.6 C 95 14 122/63 100 11/06/19 08:00 86 100 11/06/19 06:00 37.0 C 92 21 H 106/69 100 11/06/19 05:07 84 97 11/06/19 04:00 37.0 C 90 27 H 117/70 98 11/06/19 02:12 88 95 11/06/19 02:00 37.1 C 86 25 H 106/41 L 97 11/06/19 01:52 90 11/06/19 00:00 36.6 C 88 25 H 105/52 L 100 11/05/19 23:35 99 11/05/19 23:00 95 99 11/05/19 22:00 37.0 C 90 24 H 106/61 98 11/05/19 20:04 95 100 11/05/19 20:00 36.9 C 92 22 H 123/58 L 97 11/05/19 18:00 92 30 H 128/68 100 11/05/19 17:57 94 11/05/19 16:50 94 100 11/05/19 16:00 37.0 C 95 30 H 115/57 L 100 11/05/19 15:47 96 30 H 100 11/05/19 14:00 100 22 H 110/70 100 Intake/Output Intake/Output: Intake & Output 11/03/19 11/04/19 11/05/19 11/06/19 23:59 23:59 23:59 23:59 Intake Total 1684 1669 1618 1070 Output Total 22 25 1275 55 Balance 1662 7632 257 4030 Meds/Results Medications: Active Medications Generic Name Dose Route Start Last Admin Trade Name Freq PRN Reason Stop Dose Admin Albuterol 2.5 mg 10/29/19 11:48 Albuterol Sulf Neb 2.5mg/0.5ml INHALATION Q4HRT PRN Wheezing or high peak pressure Aspirin 81 mg 10/28/19 12:00 11/06/19 08:31 Aspirin Ec PO 81 mg QAM JOHNATHAN Administration Bisacodyl 10 mg 10/14/19 17:03 10/16/19 17:51 Dulcolax Suppository RECTAL 10 mg QAM PRN Administration
[2019-11-06] MEDS: HEPARIN SODIUM 1,000 UNITS/ML VIAL 6000 UNITS (12:19)
--- NOTE | 2019-11-06 12:28 | PM.EVENT ---
Event Note Event Note Event Note: Discussed with pulmonary and they recommended thoracentesis or chest tube placement on the right side. discussed with Dr. Casanova from radiology who recommends getting CT chest abdomen pelvis before pursuing thoracentesis or chest tube placement as patient had a large amount of peritoneal fluid on his last imaging. CT ordered
--- NOTE | 2019-11-06 14:29 | PCPTNOTE ---
The PT treatment was unable to be completed today. Patient leaving room for procedure. Will continue per Plan of Care frequency and duration.
--- NOTE | 2019-11-06 14:45 | P.PNCROSS_ITS ---
Event Note Event Note Event Note: CT abdomen pelvis showed posterior fundus perforation of the stomach with a splenic infarct and a fluid collection. case discussed with Dr. Casanova and Dr. Levi. Plan to discontinue tube feeds at this time. I will also discontinue Lantus. patient is going down for CT-guided drainage the area. Plan to put G-tube to suction. Keep patient NPO. And evaluate by EGD on Saturday. I have also restarted his antibiotics. patient was already on Flagyl I have resumed fluconazole and gram-negative coverage. Patient also has a thrombus in right internal jugular vein abutting the dialysis catheter. Will start heparin infusion post procedure. Patient has a tunneled dialysis c atheter. Discussed with nephrology and radiology regarding removal. Also spoke to patient's and updated her.. Additional critical care time 35 minutes.
[2019-11-06 16:07] LABS: Hematocrit 27.8 % (42.0-52.0); Hemoglobin 8.6 g/dL (14.0-18.0); Mean Corpuscular HGB Conc 30.9 g/dl (32-36); Mean Corpuscular Hemoglobin 33.1 pg (26-34); Mean Corpuscular Volume 106.9 fl (80-100); Mean Platelet Volume 10.8 fl (7.4-10.4); Platelet Count Result 444 k/mm3 (150-375); Red Cell Distribution Width 21.4 % (11.5-14.5); White Blood Count 18.1 K/mm3 (4.5-10.0)
--- NOTE | 2019-11-06 16:16 | PM.IMPN ---
Progress Note: A&P Assessment and Plan (1) Septic shock: Code(s): A41.9 - Sepsis, unspecified organism; R65.21 - Severe sepsis with septic shock Status: Deleted Assessment and Plan: 11/06/19 16:16 patient is 78-year-old male with history of end-stage renal disease on peritoneal dialysis presented emergency department had a cardiac arrest ROSC after 1 round of epinephrine per protocol ROSC, with shortness of breath and hypoxic patient was intubated currently on vent, patient may have aspirated pneumonia, patient in septic shock and on pressor, patient being treated with Levaquin, vancomycin and Flagyl, discussed with r d manager prognosis is poor we appreciate r d manager, patient is seen by Dr. Aguilar nephrology for peritoneal dialysis, Research Tech had spoken with patient's , she would like to keep full code and continue to treat the patient. septic shock resolved and patient is off Levophed, septic shock most likely secondary to aspiration pneumonia possibly peritonitis and treated with Flagyl cefepime and ceftazidime intraperitoneal by nephrology, patient is his leukocytosis etiology uncertain seen by Dr. Rowe and r d manager, stopped all antibiotic and has started the patient vancomycin and aztreonam, meanwhile patient was seen by surgery and peritoneal dialysis catheter was removed and now patient is on hemodialysis, unable to wean the patient off the ventilator, once PEG and trach fully establised, pt to be transferred to LTAC patient however LTAC is reluctant to accept the patient because of poor prognosis and may not be able to wean off the ventilator requesting pulmonary evaluation and their recommendation, patient is seen by sales and marketing executive concerned for persistent pleural effusion recommending thoracentesis and to further evaluate with CT scan to rule out loculated effusion. prognosis is poor today patient had ct of abdomen and it showed:1. New perforation of the posterior fundus of the stomach with adjacent splenic infarct and contiguous with a perisplenic rim-enhancing fluid collection with foci of gas, consistent with abscess. 2. 12.2 x 3.1 cm rim-enhancing fluid collection superior to the bladder with surgical drain in expected position. 3. Multifocal pneumonia. 4. Moderate-sized right pleural effusion with pleural thickening. Small left pleural effusion. 5. Thrombus in right internal jugular vein abutting the catheter. r d manager and surgical team have decided to start G-tube feeding and have IR drain the abscess, similarly dialysis catheter has been irrigated with a heparin nephrology is following, prognosis is poor appreciate r d manager surgical team and pantograph transferrer (2) Cardiorespiratory arrest: Code(s): I46.9 - Cardiac arrest, cause unspecified Status: Acute Assessment and Plan: Sp cardioarrest (3) Aspiration pneumonia: Code(s): J69.0 - Pneumonitis due to inhalation of food and vomit Status: Acute Assessment and Plan: Patient had aspirated resulting in pneumonia and septic shock secondary to fungal peritonitis and PNA See ID recommendations (4) Atrial fibrillation: Onset Date: ~09/2019 Code(s): I48.91 - Unspecified atrial fibrillation Status: Acute (5) Hyponatremia: Onset Date: Unknown Code(s): E87.1 - Hypo-osmolality and hyponatremia Status: Acute Assessment and Plan: Rate is controlled (6) Abnormal computed tomography of abdomen and pelvis: Code(s): R93.5 - Abnormal findings on diagnostic imaging of other abdominal regions, including retroperitoneum Status: Acute Assessment and Plan: Suspect peritonitis (7) Peritonitis (acute) generalized: Code(s): K65.0 - Generalized (acute) peritonitis Status: Acute Assessment and Plan: Patient on peritoneal dialysis,patient is being treated with antibiotics and septic shock secondary to fungal peritonitis and PNA See ID re
[2019-11-06 16:19] LABS: INR 2.1; Prothrombin Time 23.1 Seconds (11.1-14.7)
[2019-11-06 16:20] LABS: Partial Thromboplastin Time 51.9 SECONDS (22.3-36.8)
[2019-11-06 16:23] LABS: Band Neutrophils Percent 7 % (0-6); Eosinophils Absolute Manual 0.36 K/mm3 (0.02-0.5); Eosinophils Percent Manual 2 % (0-4); Lymphocytes Absolute Manual 1.08 K/mm3 (1.1-4.5); Monocytes Percent Manual 5 % (3-9); Neutrophils Absolute Manual 15.74 K/mm3 (1.3-6.7); Neutrophils Percent Manual 80 % (46-73); Platelet Estimate Increased (Adequate); Total Cells Counted 100
[2019-11-06 16:24] LABS: Anisocytosis 3+ (NORMAL); Hypochromasia 1+ (NORMAL)
[2019-11-06 16:27] LABS: Albumin Level 1.9 g/dL (3.5-5.1); Anion Gap 4 mmol/L (8-16); Blood Urea Nitrogen 19 mg/dL (9-20); Calcium 7.1 mg/dL (8.4-10.2); Carbon Dioxide 31 mmol/L (22-30); Chloride 100 mmol/L (98-107); Estimated CRCL calculation 33 ml/min; Estimated Glomerular Filt Rate 49; Glucose 102 mg/dL (75-110); Phosphorus 2.8 mg/dL (2.5-4.5); Potassium 3.3 mmol/L (3.4-5.0); Sodium 135 mmol/L (137-145)
[2019-11-06] MEDS: LOPERAMIDE HCL 2 MG CAPSULE 4 MG PO (16:31)
[2019-11-06] MEDS: DEXTROSE 50% 25 GM/50 ML SYRINGE IV PUSH (18:47)
[2019-11-06 19:37] LABS: Glucose Point of Care 55 (65-105)
[2019-11-06 19:38] LABS: Glucose Point of Care 114 (65-105)
[2019-11-06] MEDS: HEPARIN SOD/D5W 100 UNITS/ML 25,000 UNITS/250 ML BAG 12 UNITS IV CONT (20:40)
[2019-11-07] VITALS (29 sets, daily range): BP systolic 99–133; BP diastolic 55–111; PULSE 96–113; RESP 22–32; TEMP 36.6–38.3; O2SAT 97–100
[2019-11-07] MEDS: DEXTROSE 50% 25 GM/50 ML SYRINGE IV PUSH ×3 (00:10→06:29)
[2019-11-07 00:11] LABS: Glucose Point of Care 46 (65-105)
[2019-11-07 00:11] LABS: Glucose Point of Care 43 (65-105)
[2019-11-07] MEDS: metroNIDAZOLE 500 MG/ISO 100ML 500 MG/100 ML BAG 100 MG IVPB ×4 (00:14→18:36)
[2019-11-07 00:37] LABS: Glucose Point of Care 96 (65-105)
[2019-11-07 03:12] LABS: Glucose Point of Care 46 (65-105)
[2019-11-07 03:32] LABS: Glucose Point of Care 208 (65-105)
[2019-11-07 03:39] LABS: Basophils Absolute Auto 0.1 K/mm3 (0.0-0.1); Basophils Percent Auto 0.7 % (0.2-1.2); Eosinophils Absolute Auto 0.2 K/mm3 (0-0.3); Eosinophils Percent Auto 1.1 % (0-4.4); Hematocrit 25.6 % (42.0-52.0); Hemoglobin 7.9 g/dL (14.0-18.0); Immature Granulocyte Absolute 0.28 K/mm3 (0.00-0.031); Immature Granulocyte Percent A 1.7 % (0-0.5); Lymphocytes Absolute Auto 2.43 K/mm3 (0.9-3.2); Lymphocytes Percent Auto 15.1 % (18.3-44.2); Mean Corpuscular HGB Conc 30.9 g/dl (32-36); Mean Corpuscular Hemoglobin 33.1 pg (26-34); Mean Corpuscular Volume 107.1 fl (80-100); Monocytes Absolute Auto 1.6 K/mm3 (0.1-0.6); Monocytes Percent Auto 9.6 % (2.6-8.5); Neutrophils Absolute Auto 11.5 K/mm3 (1.3-6.7); Neutrophils Percent Auto 71.8 % (45.5-73.1); Platelet Count Result 436 k/mm3 (150-375); Red Blood Count 2.39 M/mm3 (4.6-6.20); Red Cell Distribution Width 21.5 % (11.5-14.5); White Blood Count 16.1 K/mm3 (4.5-10.0)
[2019-11-07] MEDS: IPRATROPIUM BR 0.02% INH SOLN 0.5 MG/2.5 ML VIAL INHALATION ×5 (03:49→21:38)
[2019-11-07 03:50] LABS: Alanine Aminotransferase 18 U/L (4-50); Albumin Level 1.8 g/dL (3.5-5.1); Alkaline Phosphatase 262 U/L (38-126); Anion Gap 4 mmol/L (8-16); Aspartate Amino Transferase 57 U/L (17-59); Bilirubin,Total 0.3 mg/dL (0.2-1.3); Blood Urea Nitrogen 24 mg/dL (9-20); Calcium 6.8 mg/dL (8.4-10.2); Carbon Dioxide 29 mmol/L (22-30); Chloride 100 mmol/L (98-107); Estimated CRCL calculation 28 ml/min; Estimated Glomerular Filt Rate 39; Glucose 178 mg/dL (75-110); Magnesium 1.8 mg/dL (1.6-2.3); Sodium 133 mmol/L (137-145)
[2019-11-07 04:11] LABS: Partial Thromboplastin Time > 200.0 SECONDS (22.3-36.8)
[2019-11-07 06:27] LABS: Glucose Point of Care 59 (65-105)
[2019-11-07] MEDS: CENTRAL LINE FLUSH 10 ML IV PUSH ×3 (06:29→21:35)
[2019-11-07 06:55] LABS: Glucose Point of Care 122 (65-105)
[2019-11-07] MEDS: DEXTROSE 10% 1,000 ML 30 ML IV CONT (07:25)
[2019-11-07] MEDS: ALBUTEROL SULFATE NEB 2.5 MG/0.5 ML INH INHALATION ×4 (07:35→21:38)
--- NOTE | 2019-11-07 09:00 | PM.PNGS ---
Progress Note: A&P Assessment and Plan (1) Gastric perforation: Code(s): K25.5 - Chronic or unspecified gastric ulcer with perforation Status: Acute Assessment and Plan: s/p perc drain, cont G tube in LIS, abx, would slowly start TPN (watch for refeeding) (2) Severe sepsis: Code(s): A41.9 - Sepsis, unspecified organism; R65.20 - Severe sepsis without septic shock Status: Acute Assessment and Plan: cont abx, hold TFs, s/p perc drain (3) Peritoneal dialysis catheter infection: Code(s): T85.71XA - Infection and inflammatory reaction due to peritoneal dialysis catheter, initial encounter Status: Acute Assessment and Plan: s/p removal (4) ESRD (end stage renal disease) on dialysis: Code(s): N18.6 - End stage renal disease; Z99.2 - Dependence on renal dialysis Status: Acute Assessment and Plan: cont HD thru [facility] HD cath, started on Heparin for clot around cath Subjective Subjective Date/Time Seen: 11/07/19 09:00 events noted, CT from yest reviewed, perc drain placed yest, some grimacing during abd exam thompson in LUQ Review of Systems Review of Systems: ROS unobtainable: Yes unobtainable due to medical condition Exam Const: General: no acute distress and uncomfortable Resp: Auscultation: diminished lung sounds Cardio: Rate: tachycardic GI: Other: S, sl dist, mod TTP in LUQ Objective Data Vital Signs Vital Signs: Vital Signs - 24 hr 11/06/19 09:15 11/06/19 09:30 11/06/19 09:45 Temperature Pulse Rate 90 102 H 110 H Respiratory Rate Blood Pressure 93/61 L 109/59 L 124/69 Pulse Oximetry 11/06/19 10:00 11/06/19 10:15 11/06/19 10:30 Temperature 36.3 C L Pulse Rate 108 H 120 H 114 H Respiratory Rate 34 H Blood Pressure 135/63 135/53 L 104/59 L Pulse Oximetry 92 11/06/19 10:45 11/06/19 11:00 11/06/19 11:15 Temperature Pulse Rate 116 H 109 H 106 H Respiratory Rate Blood Pressure 119/63 103/52 L 98/43 L Pulse Oximetry 11/06/19 11:30 11/06/19 11:45 11/06/19 12:00 Temperature 36.2 C L Pulse Rate 103 H 104 H 107 H Respiratory Rate 35 H Blood Pressure 96/39 L 119/61 77/63 L Pulse Oximetry 100 11/06/19 12:06 11/06/19 12:07 11/06/19 12:15 Temperature 36.2 C L Pulse Rate 105 H 103 H 108 H Respiratory Rate 24 H 21 H Blood Pressure 103/61 141/76 H Pulse Oximetry 99 99 11/06/19 12:16 11/06/19 14:00 11/06/19 15:40 Temperature Pulse Rate 108 H 109 H 97 Respiratory Rate 25 H 31 H 28 H Blood Pressure 124/78 Pulse Oximetry 96 100 11/06/19 15:50 11/06/19 16:00 11/06/19 17:09 Temperature 36.9 C Pulse Rate 103 H 101 H 91 Respiratory Rate 28 H 23 H Blood Pressure 104/57 L Pulse Oximetry 100 100 11/06/19 18:00 11/06/19 19:27 11/06/19 19:31 Temperature Pulse Rate 90 94 93 Respiratory Rate 25 H 28 H Blood Pressure 98/62 L Pulse Oximetry 100 100 11/06/19 19:35 11/06/19 20:00 11/06/19 22:00 Temperature 37.1 C Pulse Rate 94 96 107 H Respiratory Rate 30 H 32 H 34 H Blood Pressure 95/64 L 104/55 L Pulse Oximetry 97 100 11/06/19 22:50 11/06/19 23:00 11/06/19 23:06 Temperature Pulse Rate 101 H 106 H 100 Respiratory Rate 30 H 27 H Blood Pressure Pulse Oximetry 98 11/07/19 00:00 11/07/19 01:54 11/07/19 02:00 Temperature 36.6 C Pulse Rate 104 H 100 103 H Respiratory Rate 28 H 29 H Blood Pressure 105/64 106/55 L Pulse Oximetry 99 99 99 11/07/19 03:49 11/07/19 03:58 11/07/19 04:00 Temperature 36.8 C Pulse Rate 107 H 108 H 109 H Respiratory Rate 30 H 29 H 32 H Blood Pressure 106/62 Pulse Oximetry 99 11/07/19 04:45 11/07/19 06:00 11/07/19 07:31 Temperature Pulse Rate 101 H 105 H Respiratory Rate 27 H Blood Pressure 124/73 Pulse Oximetry 99 99 99 11/07/19 08:00 Temperature 37.4 C Pulse Rate 107 H Respiratory Rate 29 H Blood Pressure 126/68 Pulse Oximetry 100 Intake/Output Intake/Output: Intake
[2019-11-07] MEDS: FLUTICASONE PROPIONATE 0.05% NA SPR 16 GM BTL (*BKC) 2 SPRAY NASAL (09:25)
[2019-11-07] MEDS: SILVERGEL (ELTA) 45 ML 1 APPLIC TOPICAL (09:26)
[2019-11-07] MEDS: PANTOPRAZOLE SODIUM IV 40 MG VIAL IV PUSH ×2 (09:26→21:35)
[2019-11-07] MEDS: NEOMYCIN/POLYMYXIN/BACITRACIN OINTMENT 15 GM TUBE 1 APPLIC TOPICAL (09:26)
[2019-11-07] MEDS: FLUCONAZOLE 200 MG/NACL 100 ML 200 MG/100 ML BAG 100 MG IVPB (09:39)
--- NOTE | 2019-11-07 11:47 | PM.PNNEP ---
Progress Note: A&P Assessment and Plan (1) ESRD (end stage renal disease) on dialysis: Code(s): N18.6 - End stage renal disease; Z99.2 - Dependence on renal dialysis Status: Acute Assessment and Plan: HD yesterday and continue M/W/F schedule for now Blood pressure usually runs low on the treatment started on midodrine to compensate (2) Gastric perforation: Code(s): K25.5 - Chronic or unspecified gastric ulcer with perforation Status: Acute Assessment and Plan: new finding as noted by CT scan yesterday complicated by perisplenic abscess s/p drain placement by IR continue current therapy (3) Peritonitis (acute) generalized: Code(s): K65.0 - Generalized (acute) peritonitis Status: Acute Assessment and Plan: cultures growing yeast s/p PD catheter removal and washout On micofungin Dr Rowe on the case (4) Hyponatremia: Onset Date: Unknown Code(s): E87.1 - Hypo-osmolality and hyponatremia Status: Acute Assessment and Plan: stable at this time continue to follow (5) Cardiorespiratory arrest: Code(s): I46.9 - Cardiac arrest, cause unspecified Status: Acute Assessment and Plan: presumably precipitated by aspiration now has a tracheostomy remains on mechanical ventilation (6) Encephalopathy: Code(s): G93.40 - Encephalopathy, unspecified Status: Acute Assessment and Plan: some improvement noted continue supportive care Will continue to follow. Subjective Date/time seen: 11/07/19 11:47 Tolerated dialysis yesterday without any acute issues -- CT scan of chest/abd/pevis yesterday with results noted; s/p drain placement by IR yesterday; no apparent distress noted aside from mild abdominal discomfort; off sedation and awake and able to follow simple commands. Exam Narrative: Exam Narrative: General: WD/WN male in NAD; s/p tracheostomy Heart: irregular rhythm; no rub Lungs: crackles at bases and diminished breath sounds Abdomen: soft, nontender, nondistended, positive bowel sounds Extremities: no cyanosis or clubbing; 1+ edema Skin: warm and intact Objective Data Vital Signs Vital Signs: Vital Signs Temp Pulse Resp BP Pulse Ox 11/07/19 11:31 105 H 28 H 11/07/19 11:21 102 H 100 11/07/19 11:19 96 26 H 11/07/19 08:00 37.4 C 107 H 29 H 126/68 100 11/07/19 07:47 101 H 27 H 11/07/19 07:35 104 H 28 H 99 11/07/19 07:31 99 11/07/19 06:00 105 H 27 H 124/73 99 11/07/19 04:45 101 H 99 11/07/19 04:00 36.8 C 109 H 32 H 106/62 99 11/07/19 03:58 108 H 29 H 11/07/19 03:49 107 H 30 H 11/07/19 02:00 103 H 29 H 106/55 L 99 11/07/19 01:54 100 99 11/07/19 00:00 36.6 C 104 H 28 H 105/64 99 11/06/19 23:06 100 27 H 11/06/19 23:00 106 H 30 H 11/06/19 22:50 101 H 98 11/06/19 22:00 107 H 34 H 104/55 L 100 11/06/19 20:00 37.1 C 96 32 H 95/64 L 97 11/06/19 19:35 94 30 H 11/06/19 19:31 93 100 11/06/19 19:27 94 28 H 11/06/19 18:00 90 25 H 98/62 L 100 11/06/19 17:09 91 100 11/06/19 16:00 36.9 C 101 H 23 H 104/57 L 100 11/06/19 15:50 103 H 28 H 11/06/19 15:40 97 28 H 100 11/06/19 14:00 109 H 31 H 124/78 96 11/06/19 12:16 108 H 25 H 11/06/19 12:15 36.2 C L 108 H 21 H 141/76 H 99 11/06/19 12:07 103 H 103/61 11/06/19 12:06 105 H 24 H 99 11/06/19 12:00 36.2 C L 107 H 35 H 77/63 L 100 Intake/Output Intake/Output: Intake & Output 11/04/19 11/05/19 11/06/19 11/07/19 23:59 23:59 23:59 23:59 Intake Total 1669 1618 1620 407 Output Total 25 1395 6265 160 Balance 1644 343 -1045 247 Meds/Results Medications: Active Medications Generic Name Dose Route Start Last Admin Trade Name Freq PRN Reason Stop Dose Admin Albuterol 2.5 mg 10/29/19 11:48 11/07/19 11:19 Albuterol Sulf N
[2019-11-07 12:08] LABS: Partial Thromboplastin Time > 200.0 SECONDS (22.3-36.8)
[2019-11-07 12:25] LABS: Glucose Point of Care 89 (65-105)
--- NOTE | 2019-11-07 13:46 | WPDINTPN ---
Progress Note: A&P Assessment and Plan (1) Acute respiratory failure: Code(s): J96.00 - Acute respiratory failure, unspecified whether with hypoxia or hypercapnia Status: Acute Assessment and Plan: - patient on mechanical ventilation and failure to wean - patient now status post tracheostomy on 10/30/2019 - patient had a a ultrasound-guided thoracentesis done on 10/26 on right and 150 mL fluid was removed which was negative for any Gram stain or culture. Will discuss with Pulmonary again - I tried patient on pressure support ventilation for a weaning trial. Patient failed within 5 minutes with a high respiratory rate in 40s and tidal volume dropped to 100-200 cc and patient was in obvious respiratory distress. - Continue CMV at this time. Patient does not tolerate ASV mode with respiratory rate and peak pressure is going up. - Continue physical and occupational therapy work with the patient - patient seen by Pulmonary. - awaits LTAC placement - patient did not tolerate pressure support ventilation on 11/05 - will continue weaning trials (2) Severe sepsis: Code(s): A41.9 - Sepsis, unspecified organism; R65.20 - Severe sepsis without septic shock Status: Acute Assessment and Plan: septic shock secondary to fungal peritonitis and PNA . Improving/resolving - OFF LEVOPHED since 2:00 a.m. on 10/16/2019 - peritoneal cultures growing Yeast - CT scan of the abdomen and pelvis on 10/16 showed interval progression of patchy bilateral airspace disease, compatible pneumonia. Bilateral pleural effusions right greater than left moderate ascites which appears loculated the left upper abdomen, cannot exclude peritonitis, abdominal wall thickening suspicious for cystitis. peritoneal dialysis catheter present in the pelvis 11/06/2019: CT chest/abdomen /pelvis showed perforation of the posterior fundus of the stomach with splenic infarct and fluid collection , status post CT-guided placement of a drain with purulent drainage - cultures pending - patient was restarted on metronidazole, cefepime and fluconazole on 11/06/2019 - 10/19/2019 peritoneal fluid Gram stain , no organism seen - 10/19/2019 peritoneal fluid culture, growing Linda albicans - 10/18/2019 blood cultures negative x2 - 10/21/2019 repeat peritoneal cultures and peritoneal catheter cultures growing Linda albicans (3) Peritonitis: Onset Date: ~10/2019 Code(s): K65.9 - Peritonitis, unspecified Status: Acute Assessment and Plan: Linda peritonitis - status post removal of peritoneal dialysis catheter on 10/21/2019, Catheter and peritoneal fluid sent for culture - SILVA drains x1 draining minimal amount of serosanguineous fluid, surgery following the patient. Dr. Levi wants to remove the drain once output is close to 0 - 2nd SILVA drain was removed - continue IV fluconazole per infectious disease (4) Aspiration pneumonia: Code(s): J69.0 - Pneumonitis due to inhalation of food and vomit Status: Acute Assessment and Plan: completed course of antibiotics (5) Encephalopathy: Code(s): G93.40 - Encephalopathy, unspecified Status: Acute Assessment and Plan: - gradually improving - continue to hold sedation - encephalopathy likely multifactorial related to metabolic /uremic encephalopathy, infectious encephalopathy, medication related - neurology has been consulted and appreciate their evaluation and recommendations - EEG was done on 10/20/2019 and discussed with Neurology, EEG had significant slowing, likely related to severe encephalopathy. No epileptiform discharges were seen - patient did have a CT scan of the brain on 10/18/2019: was negative for any acute intracranial pathology (6) Cardiorespiratory arrest: Code(s): I46.9 - Cardiac arrest, cause unspecified Status: Acute Assessment and Plan: PEA arrest likely due aspiration,ROSC
--- NOTE | 2019-11-07 14:45 | PM.IMPN ---
Progress Note: A&P Assessment and Plan (1) Septic shock: Code(s): A41.9 - Sepsis, unspecified organism; R65.21 - Severe sepsis with septic shock Status: Deleted Assessment and Plan: 11/07/19 14:45 patient is 78-year-old male with history of end-stage renal disease on peritoneal dialysis presented emergency department had a cardiac arrest ROSC after 1 round of epinephrine per protocol ROSC, with shortness of breath and hypoxic patient was intubated currently on vent, patient may have aspirated pneumonia, patient in septic shock and on pressor, patient being treated with Levaquin, vancomycin and Flagyl, discussed with maintenance dispatcher prognosis is poor we appreciate maintenance dispatcher, patient is seen by Dr. Aguilar nephrology for peritoneal dialysis, Engineering Consultant had spoken with patient's , she would like to keep full code and continue to treat the patient. septic shock resolved and patient is off Levophed, septic shock most likely secondary to aspiration pneumonia possibly peritonitis and treated with Flagyl cefepime and ceftazidime intraperitoneal by nephrology, patient is his leukocytosis etiology uncertain seen by Dr. Rowe and maintenance dispatcher, stopped all antibiotic and has started the patient vancomycin and aztreonam, meanwhile patient was seen by surgery and peritoneal dialysis catheter was removed and now patient is on hemodialysis, unable to wean the patient off the ventilator, once PEG and trach fully establised, pt to be transferred to LTAC patient however LTAC is reluctant to accept the patient because of poor prognosis and may not be able to wean off the ventilator requesting pulmonary evaluation and their recommendation, patient is seen by openstack developer concerned for persistent pleural effusion recommending thoracentesis and to further evaluate with CT scan to rule out loculated effusion. prognosis is poor today patient had ct of abdomen and it showed:1. New perforation of the posterior fundus of the stomach with adjacent splenic infarct and contiguous with a perisplenic rim-enhancing fluid collection with foci of gas, consistent with abscess. 2. 12.2 x 3.1 cm rim-enhancing fluid collection superior to the bladder with surgical drain in expected position. 3. Multifocal pneumonia. 4. Moderate-sized right pleural effusion with pleural thickening. Small left pleural effusion. 5. Thrombus in right internal jugular vein abutting the catheter. maintenance dispatcher and surgical team have decided to start G-tube feeding and have IR drain the abscess, similarly dialysis catheter has been irrigated with a heparin nephrology is following, prognosis is poor appreciate maintenance dispatcher surgical team and staff research scientist, there is no significant improvement, patient is seen by surgery team, Nephrology, and discussed with maintenance dispatcher prognosis is poor now with GI and be more difficult to transfer the patient to LTAC (2) Cardiorespiratory arrest: Code(s): I46.9 - Cardiac arrest, cause unspecified Status: Acute Assessment and Plan: Sp cardioarrest (3) Aspiration pneumonia: Code(s): J69.0 - Pneumonitis due to inhalation of food and vomit Status: Acute Assessment and Plan: Patient had aspirated resulting in pneumonia and septic shock secondary to fungal peritonitis and PNA See ID recommendations (4) Atrial fibrillation: Onset Date: ~09/2019 Code(s): I48.91 - Unspecified atrial fibrillation Status: Acute (5) Hyponatremia: Onset Date: Unknown Code(s): E87.1 - Hypo-osmolality and hyponatremia Status: Acute Assessment and Plan: Rate is controlled (6) Abnormal computed tomography of abdomen and pelvis: Code(s): R93.5 - Abnormal findings on diagnostic imaging of other abdominal regions, including retroperitoneum Status: Acute Assessment and Plan: Suspect peritonitis (7) Peritonitis (acute) generalized: Code(s): K65.0 - Generalized (acute) peritoni
[2019-11-07 14:59] LABS: Magnesium 1.8 mg/dL (1.6-2.3)
[2019-11-07] MEDS: FAT EMULSIONS IV 20% 250 ML 20.8 ML IVPB (15:03)
[2019-11-07 15:33] LABS: Transferrin < 80 mg/dL (206-381)
[2019-11-07 16:56] LABS: Glucose Point of Care 116 (65-105)
--- NOTE | 2019-11-07 19:02 | PM.PNPUL ---
Progress Note: A&P Assessment and Plan (1) Ventilator dependence: Code(s): Z99.11 - Dependence on respirator [ventilator] status Status: Acute Assessment and Plan: daily trial of PSV of 15-20 with PEEP of 5 and wean slowly as tolerated (2) Nosocomial pneumonia: Code(s): J18.9 - Pneumonia, unspecified organism; Y95 - Nosocomial condition Status: Acute Assessment and Plan: Recommend sputum culture starting broad spectrum antibiotics (3) Pleural effusion on right: Code(s): J90 - Pleural effusion, not elsewhere classified Status: Acute Assessment and Plan: Needs chest tube placement with antibiotics as the fluid may be complicated or loculated. Time Spent With Patient Time with patient: 15 - 25 minutes Subjective Date/time seen: 11/07/19 19:02 Interval history: CT chest/abd showed spleenic abcess which was drained as well as RLL consolidation with moderate sided pleural effussion. WBC coming doing. Review of Systems Review of Systems: All systems reviewed & are unremarkable except as noted in HPI and below Exam Const: General: no acute distress Eyes: General: appearance normal, both eyes and all related structures Neck: Neck: supple and no JVD Resp: Auscultation: crackles, rhonchi, wheezes and diminished lung sounds Cardio: Rate: regular rate and tachycardic Heart sounds: no murmurs GI: Auscultation: normal bowel sounds Skin: General skin exam: normal color and no rashes or lesions noted Extrem: General: normal to inspection Objective Data Vital Signs Vital Signs: Vital Signs - 24 hr 11/06/19 19:27 11/06/19 19:31 11/06/19 19:35 Temperature Pulse Rate 94 93 94 Respiratory Rate 28 H 30 H Blood Pressure Pulse Oximetry 100 11/06/19 20:00 11/06/19 22:00 11/06/19 22:50 Temperature 37.1 C Pulse Rate 96 107 H 101 H Respiratory Rate 32 H 34 H Blood Pressure 95/64 L 104/55 L Pulse Oximetry 97 100 98 11/06/19 23:00 11/06/19 23:06 11/07/19 00:00 Temperature 36.6 C Pulse Rate 106 H 100 104 H Respiratory Rate 30 H 27 H 28 H Blood Pressure 105/64 Pulse Oximetry 99 11/07/19 01:54 11/07/19 02:00 11/07/19 03:49 Temperature Pulse Rate 100 103 H 107 H Respiratory Rate 29 H 30 H Blood Pressure 106/55 L Pulse Oximetry 99 99 11/07/19 03:58 11/07/19 04:00 11/07/19 04:45 Temperature 36.8 C Pulse Rate 108 H 109 H 101 H Respiratory Rate 29 H 32 H Blood Pressure 106/62 Pulse Oximetry 99 99 11/07/19 06:00 11/07/19 07:31 11/07/19 07:35 Temperature Pulse Rate 105 H 104 H Respiratory Rate 27 H 28 H Blood Pressure 124/73 Pulse Oximetry 99 99 99 11/07/19 07:47 11/07/19 08:00 11/07/19 10:00 Temperature 37.4 C Pulse Rate 101 H 107 H 99 Respiratory Rate 27 H 29 H 26 H Blood Pressure 126/68 122/91 H Pulse Oximetry 100 100 11/07/19 11:19 11/07/19 11:21 11/07/19 11:31 Temperature Pulse Rate 96 102 H 105 H Respiratory Rate 26 H 28 H Blood Pressure Pulse Oximetry 100 11/07/19 12:00 11/07/19 14:00 11/07/19 14:18 Temperature 37.0 C Pulse Rate 102 H 102 H 113 H Respiratory Rate 26 H 29 H Blood Pressure 108/73 133/111 H Pulse Oximetry 100 99 97 11/07/19 15:45 11/07/19 16:00 11/07/19 17:04 Temperature 38.3 C H Pulse Rate 111 H 104 H 105 H Respiratory Rate 24 H 22 H Blood Pressure 117/67 Pulse Oximetry 99 99 11/07/19 18:00 Temperature Pulse Rate 97 Respiratory Rate 26 H Blood Pressure 100/66 Pulse Oximetry 99 Intake/Output Intake/Output: Intake & Output 11/04/19 11/05/19 11/06/19 11/07/19 23:59 23:59 23:59 23:59 Intake Total 1669 1618 1620 1177 Output Total 25 9525 7415 235 Balance 1644 343 -0929 942 Meds/Results Medications: Active Medications Generic Name Dose Route Start Last Admin Trade Name Freq PRN Reason Stop Dose Admin Albuterol 2.5 mg 10/29/19 11:48 11/07/19 15:45 Albuterol Sulf Neb 2.5mg/0.5ml INHALATION 2.5
[2019-11-07 19:50] LABS: Partial Thromboplastin Time 98.9 SECONDS (22.3-36.8)
[2019-11-07] MEDS: HEPARIN SOD/D5W 100 UNITS/ML 25,000 UNITS/250 ML BAG 8 UNITS IV CONT (21:35)
[2019-11-08] VITALS (27 sets, daily range): BP systolic 94–123; BP diastolic 51–90; PULSE 87–115; RESP 11–32; TEMP 36.9–37.3; O2SAT 93–100
[2019-11-08] MEDS: ALBUTEROL SULFATE NEB 2.5 MG/0.5 ML INH INHALATION ×5 (00:22→20:13)
[2019-11-08] MEDS: IPRATROPIUM BR 0.02% INH SOLN 0.5 MG/2.5 ML VIAL INHALATION ×5 (00:22→20:13)
[2019-11-08 01:02] LABS: Glucose Point of Care 207 (65-105)
[2019-11-08] MEDS: metroNIDAZOLE 500 MG/ISO 100ML 500 MG/100 ML BAG 100 MG IVPB ×5 (01:34→23:30)
[2019-11-08 02:37] LABS: Partial Thromboplastin Time 92.5 SECONDS (22.3-36.8)
[2019-11-08] MEDS: CENTRAL LINE FLUSH 10 ML IV PUSH ×3 (06:04→20:35)
[2019-11-08] MEDS: INSULIN ASPART (*BKC) 100 UNITS/ML SUB-Q ×2 (06:06→23:30)
[2019-11-08 06:16] LABS: Glucose Point of Care 201 (65-105)
[2019-11-08 06:57] LABS: Hematocrit 25.7 % (42.0-52.0); Hemoglobin 8.1 g/dL (14.0-18.0); Mean Corpuscular HGB Conc 31.5 g/dl (32-36); Mean Corpuscular Hemoglobin 33.6 pg (26-34); Mean Corpuscular Volume 106.6 fl (80-100); Mean Platelet Volume 10.8 fl (7.4-10.4); Platelet Count Result 517 k/mm3 (150-375); Red Blood Count 2.41 M/mm3 (4.6-6.20); Red Cell Distribution Width 21.1 % (11.5-14.5); White Blood Count 18.3 K/mm3 (4.5-10.0)
[2019-11-08 07:21] LABS: Alanine Aminotransferase 21 U/L (4-50); Albumin Level 1.9 g/dL (3.5-5.1); Alkaline Phosphatase 263 U/L (38-126); Anion Gap 8 mmol/L (8-16); Aspartate Amino Transferase 62 U/L (17-59); Bilirubin,Total 0.5 mg/dL (0.2-1.3); Blood Urea Nitrogen 27 mg/dL (9-20); Calcium 6.9 mg/dL (8.4-10.2); Carbon Dioxide 25 mmol/L (22-30); Chloride 97 mmol/L (98-107); Estimated CRCL calculation 21 ml/min; Estimated Glomerular Filt Rate 25; Glucose 205 mg/dL (75-110); Magnesium 1.8 mg/dL (1.6-2.3); Phosphorus 4.5 mg/dL (2.5-4.5); Potassium 3.2 mmol/L (3.4-5.0); Sodium 130 mmol/L (137-145); Triglycerides 158 mg/dL (<150)
[2019-11-08] MEDS: FLUTICASONE PROPIONATE 0.05% NA SPR 16 GM BTL (*BKC) 2 SPRAY NASAL (08:20)
[2019-11-08] MEDS: FLUCONAZOLE 200 MG/NACL 100 ML 200 MG/100 ML BAG 100 MG IVPB (08:20)
[2019-11-08] MEDS: NEOMYCIN/POLYMYXIN/BACITRACIN OINTMENT 15 GM TUBE 1 APPLIC TOPICAL (08:21)
[2019-11-08] MEDS: PANTOPRAZOLE SODIUM IV 40 MG VIAL IV PUSH ×2 (08:21→20:34)
[2019-11-08] MEDS: SILVERGEL (ELTA) 45 ML 1 APPLIC TOPICAL (08:21)
--- NOTE | 2019-11-08 09:46 | PM.PNGS ---
Progress Note: A&P Assessment and Plan (1) Gastric perforation: Code(s): K25.5 - Chronic or unspecified gastric ulcer with perforation Status: Acute Assessment and Plan: cont drain, abx, G tube to LIS, abx, likely reimage in the next few days (2) Severe sepsis: Code(s): A41.9 - Sepsis, unspecified organism; R65.20 - Severe sepsis without septic shock Status: Acute Assessment and Plan: cont drain, abx (3) ESRD (end stage renal disease) on dialysis: Code(s): N18.6 - End stage renal disease; Z99.2 - Dependence on renal dialysis Status: Acute Assessment and Plan: cont HD thru [facility] HD cath (4) Ventilator dependence: Code(s): Z99.11 - Dependence on respirator [ventilator] status Status: Acute Assessment and Plan: wean as rocio Subjective Subjective Date/Time Seen: 11/08/19 09:46 no acute issues, started on TPN Review of Systems Review of Systems: ROS unobtainable: Yes unobtainable due to medical condition Exam Const: General: no acute distress Resp: Auscultation: diminished lung sounds Cardio: Rate: tachycardic GI: Other: S, sl dist, mod TTP LUQ, G tube c minimal drainage, LUQ drain c purulent appearing drainage Objective Data Vital Signs Vital Signs: Vital Signs - 24 hr 11/07/19 10:00 11/07/19 11:19 11/07/19 11:21 Temperature Pulse Rate 99 96 102 H Respiratory Rate 26 H 26 H Blood Pressure 122/91 H Pulse Oximetry 100 100 11/07/19 11:31 11/07/19 12:00 11/07/19 14:00 Temperature 37.0 C Pulse Rate 105 H 102 H 102 H Respiratory Rate 28 H 26 H 29 H Blood Pressure 108/73 133/111 H Pulse Oximetry 100 99 11/07/19 14:18 11/07/19 15:45 11/07/19 16:00 Temperature 38.3 C H Pulse Rate 113 H 111 H 104 H Respiratory Rate 24 H 22 H Blood Pressure 117/67 Pulse Oximetry 97 99 11/07/19 17:04 11/07/19 18:00 11/07/19 20:00 Temperature 36.9 C Pulse Rate 105 H 97 107 H Respiratory Rate 26 H 24 H Blood Pressure 100/66 110/78 Pulse Oximetry 99 99 100 11/07/19 21:39 11/07/19 21:47 11/07/19 21:57 Temperature Pulse Rate 102 H 103 H 104 H Respiratory Rate 26 H 26 H 28 H Blood Pressure 99/59 L Pulse Oximetry 100 11/07/19 22:00 11/07/19 23:30 11/08/19 00:00 Temperature 37.2 C Pulse Rate 111 H 107 H 104 H Respiratory Rate 30 H Blood Pressure 110/82 Pulse Oximetry 100 99 11/08/19 00:23 11/08/19 00:33 11/08/19 01:55 Temperature Pulse Rate 108 H 111 H 115 H Respiratory Rate 28 H 22 H Blood Pressure Pulse Oximetry 100 11/08/19 02:00 11/08/19 04:00 11/08/19 04:33 Temperature 37.3 C Pulse Rate 106 H 109 H 102 H Respiratory Rate 31 H 29 H 28 H Blood Pressure 115/56 L 98/58 L Pulse Oximetry 99 99 11/08/19 04:38 11/08/19 05:05 11/08/19 05:58 Temperature Pulse Rate 102 H 103 H 98 Respiratory Rate 27 H 26 H Blood Pressure 118/71 Pulse Oximetry 100 100 11/08/19 06:00 11/08/19 07:53 Temperature Pulse Rate 100 92 Respiratory Rate 27 H Blood Pressure Pulse Oximetry 100 Intake/Output Intake/Output: Intake & Output 11/05/19 11/06/19 11/07/19 11/08/19 23:59 23:59 23:59 23:59 Intake Total 1618 1620 1343 648 Output Total 1275 2665 235 85 Balance 343 -1045 1108 563 Meds/Results Medications: Active Medications Generic Name Dose Route Start Last Admin Trade Name Freq PRN Reason Stop Dose Admin Albuterol 2.5 mg 10/29/19 11:48 11/08/19 07:52 Albuterol Sulf Neb 2.5mg/0.5ml INHALATION 2.5 mg Q4HRT PRN Administration Wheezing or high peak pressure Bisacodyl 10 mg 10/14/19 17:03 10/16/19 17:51 Dulcolax Suppository RECTAL 10 mg QAM PRN Administration Constipation Dextrose 12.5 gm 10/31/19 09:03 11/07/19 06:29 Dextrose 50% Syringe IV PUSH 12.5 gm PRN PRN Administration Hypoglycemia Protocol Fentanyl Citrate 25 mcg 11/07/19 10:22 Sublimaze IV PUSH Q1H PRN Pain Rated 7-10
[2019-11-08 12:08] LABS: Glucose Point of Care 162 (65-105)
--- NOTE | 2019-11-08 12:17 | PM.PNNEP ---
Progress Note: A&P Assessment and Plan (1) ESRD (end stage renal disease) on dialysis: Code(s): N18.6 - End stage renal disease; Z99.2 - Dependence on renal dialysis Status: Acute Assessment and Plan: HD tomorrow and continue M/W/F schedule for now Blood pressure usually runs low on the treatment started on midodrine to compensate (2) Gastric perforation: Code(s): K25.5 - Chronic or unspecified gastric ulcer with perforation Status: Acute Assessment and Plan: new finding as noted by recent CT imaging complicated by perisplenic abscess s/p drain placement by IR continue current therapy (3) Peritonitis (acute) generalized: Code(s): K65.0 - Generalized (acute) peritonitis Status: Acute Assessment and Plan: cultures growing yeast s/p PD catheter removal and washout completed 2 week course of antifungal therapy (4) Hyponatremia: Onset Date: Unknown Code(s): E87.1 - Hypo-osmolality and hyponatremia Status: Acute Assessment and Plan: stable at this time continue to follow (5) Cardiorespiratory arrest: Code(s): I46.9 - Cardiac arrest, cause unspecified Status: Acute Assessment and Plan: presumably precipitated by aspiration now has a tracheostomy remains on mechanical ventilation (6) Encephalopathy: Code(s): G93.40 - Encephalopathy, unspecified Status: Acute Assessment and Plan: some improvement noted continue supportive care Will continue to follow. Subjective Date/time seen: 11/08/19 12:17 No real change at this time -- remains on ventilator support and getting TPN for nutrition; opens eyes and follows simple commands; no events overnight or earlier this AM. Exam Narrative: Exam Narrative: General: WD/WN male in NAD; s/p tracheostomy Heart: irregular rhythm; no rub Lungs: crackles at bases and diminished breath sounds Abdomen: soft, nontender, nondistended, positive bowel sounds Extremities: no cyanosis or clubbing; 1+ edema Skin: warm and intact Objective Data Vital Signs Vital Signs: Vital Signs Temp Pulse Resp BP Pulse Ox 11/08/19 11:40 90 24 H 11/08/19 10:00 95 20 123/60 100 11/08/19 08:00 36.9 C 90 21 H 111/53 L 100 11/08/19 07:53 92 27 H 100 11/08/19 06:00 100 11/08/19 05:58 98 26 H 118/71 100 11/08/19 05:05 103 H 100 11/08/19 04:38 102 H 27 H 11/08/19 04:33 102 H 28 H 11/08/19 04:00 37.3 C 109 H 29 H 98/58 L 99 11/08/19 02:00 106 H 31 H 115/56 L 99 11/08/19 01:55 115 H 100 11/08/19 00:33 111 H 22 H 11/08/19 00:23 108 H 28 H 11/08/19 00:00 37.2 C 104 H 30 H 110/82 99 11/07/19 23:30 107 H 100 11/07/19 22:00 111 H 11/07/19 21:57 104 H 28 H 99/59 L 100 11/07/19 21:47 103 H 26 H 11/07/19 21:39 102 H 26 H 11/07/19 20:00 36.9 C 107 H 24 H 110/78 100 11/07/19 18:00 97 26 H 100/66 99 11/07/19 17:04 105 H 99 11/07/19 16:00 38.3 C H 104 H 22 H 117/67 99 11/07/19 15:45 111 H 24 H 11/07/19 14:18 113 H 97 11/07/19 14:00 102 H 29 H 133/111 H 99 Intake/Output Intake/Output: Intake & Output 11/05/19 11/06/19 11/07/19 11/08/19 23:59 23:59 23:59 23:59 Intake Total 1618 1620 1343 798 Output Total 1275 2665 235 85 Balance 343 -1045 1108 713 Meds/Results Medications: Active Medications Generic Name Dose Route Start Last Admin Trade Name Freq PRN Reason Stop Dose Admin Albuterol 2.5 mg 10/29/19 11:48 11/08/19 11:40 Albuterol Sulf Neb 2.5mg/0.5ml INHALATION 2.5 mg Q4HRT PRN Administration Wheezing or high peak pressure Bisacodyl 10 mg 10/14/19 17:03 10/16/19 17:51 Dulcolax Suppository RECTAL 10 mg QAM PRN Administration Constipation Dextrose 12.5 gm 10/31/19 09:03 11/07/19 06:29 Dextrose 50% Syringe IV PUSH 12.5 gm PRN PRN Administration
--- NOTE | 2019-11-08 14:20 | WPDINTPN ---
Progress Note: A&P Assessment and Plan (1) Acute respiratory failure: Code(s): J96.00 - Acute respiratory failure, unspecified whether with hypoxia or hypercapnia Status: Acute Assessment and Plan: - patient on mechanical ventilation and failure to wean - patient now status post tracheostomy on 10/30/2019 - patient had a a ultrasound-guided thoracentesis done on 10/26 on right and 150 mL fluid was removed which was negative for any Gram stain or culture. Will discuss with Pulmonary again - I tried patient on pressure support ventilation for a weaning trial. Patient failed within 5 minutes with a high respiratory rate in 40s and tidal volume dropped to 100-200 cc and patient was in obvious respiratory distress. - Continue CMV at this time. Patient does not tolerate ASV mode with respiratory rate and peak pressure is going up. - Continue physical and occupational therapy work with the patient - awaits LTAC placement - will place patient on pressure support ventilation with high pressure support - appreciate pulmonology evaluation and recommendation (2) Severe sepsis: Code(s): A41.9 - Sepsis, unspecified organism; R65.20 - Severe sepsis without septic shock Status: Acute Assessment and Plan: septic shock secondary to fungal peritonitis and PNA . Improving/resolving - OFF LEVOPHED since 2:00 a.m. on 10/16/2019 - peritoneal cultures growing Yeast - CT scan of the abdomen and pelvis on 10/16 showed interval progression of patchy bilateral airspace disease, compatible pneumonia. Bilateral pleural effusions right greater than left moderate ascites which appears loculated the left upper abdomen, cannot exclude peritonitis, abdominal wall thickening suspicious for cystitis. peritoneal dialysis catheter present in the pelvis 11/06/2019: CT chest/abdomen /pelvis showed perforation of the posterior fundus of the stomach with splenic infarct and fluid collection , status post CT-guided placement of a drain with purulent drainage - cultures pending - patient was restarted on metronidazole, cefepime and fluconazole on 11/06/2019 - 10/19/2019 peritoneal fluid Gram stain , no organism seen - 10/19/2019 peritoneal fluid culture, growing Linda albicans - 10/18/2019 blood cultures negative x2 - 10/21/2019 repeat peritoneal cultures and peritoneal catheter cultures growing Linda albicans (3) Peritonitis: Onset Date: ~10/2019 Code(s): K65.9 - Peritonitis, unspecified Status: Acute Assessment and Plan: Linda peritonitis - status post removal of peritoneal dialysis catheter on 10/21/2019, Catheter and peritoneal fluid sent for culture - SILVA drains x1 draining minimal amount of serosanguineous fluid, surgery following the patient. Dr. Levi wants to remove the drain once output is close to 0 - 2nd SILVA drain was removed - continue IV fluconazole per infectious disease (4) Aspiration pneumonia: Code(s): J69.0 - Pneumonitis due to inhalation of food and vomit Status: Acute Assessment and Plan: completed course of antibiotics (5) Encephalopathy: Code(s): G93.40 - Encephalopathy, unspecified Status: Acute Assessment and Plan: - gradually improving - continue to hold sedation - encephalopathy likely multifactorial related to metabolic /uremic encephalopathy, infectious encephalopathy, medication related - neurology has been consulted and appreciate their evaluation and recommendations - EEG was done on 10/20/2019 and discussed with Neurology, EEG had significant slowing, likely related to severe encephalopathy. No epileptiform discharges were seen - patient did have a CT scan of the brain on 10/18/2019: was negative for any acute intracranial pathology (6) Cardiorespiratory arrest: Code(s): I46.9 - Cardiac arrest, cause unspecified Status: Acute Assessment and Plan: PEA arrest likely due aspiration,
--- NOTE | 2019-11-08 14:45 | PM.PNPUL ---
Progress Note: A&P Assessment and Plan (1) Ventilator dependence: Code(s): Z99.11 - Dependence on respirator [ventilator] status Status: Acute Assessment and Plan: daily trial of PSV of 15-20 with PEEP of 5 and wean slowly as tolerated (2) Nosocomial pneumonia: Code(s): J18.9 - Pneumonia, unspecified organism; Y95 - Nosocomial condition Status: Acute Assessment and Plan: Recommend sputum culture on Cefipime and Metroniadazole consider adding Vancomycin (3) Pleural effusion on right: Code(s): J90 - Pleural effusion, not elsewhere classified Status: Acute Assessment and Plan: Needs chest tube placement with antibiotics as the fluid may be complicated or loculated. Time Spent With Patient Time with patient: 15 - 25 minutes Subjective Date/time seen: 11/08/19 14:45 Interval history: Stable, Abcess drainage growing GPC and GPB. Identity pending, currently on Cefipime and Metroniadazole Still on CMV with TV of 300, Peak pressure around 30 and minute ventilation around 8.0 Review of Systems Review of Systems: All systems reviewed & are unremarkable except as noted in HPI and below Exam Const: General: no acute distress Eyes: General: appearance normal, both eyes and all related structures Neck: Neck: supple and no JVD Resp: Auscultation: crackles, rhonchi, wheezes and diminished lung sounds Cardio: Rate: regular rate and tachycardic Heart sounds: no murmurs GI: Auscultation: normal bowel sounds Skin: General skin exam: normal color and no rashes or lesions noted Extrem: General: normal to inspection Objective Data Vital Signs Vital Signs: Vital Signs - 24 hr 11/07/19 15:45 11/07/19 16:00 11/07/19 17:04 Temperature 38.3 C H Pulse Rate 111 H 104 H 105 H Respiratory Rate 24 H 22 H Blood Pressure 117/67 Pulse Oximetry 99 99 11/07/19 18:00 11/07/19 20:00 11/07/19 21:39 Temperature 36.9 C Pulse Rate 97 107 H 102 H Respiratory Rate 26 H 24 H 26 H Blood Pressure 100/66 110/78 Pulse Oximetry 99 100 11/07/19 21:47 11/07/19 21:57 11/07/19 22:00 Temperature Pulse Rate 103 H 104 H 111 H Respiratory Rate 26 H 28 H Blood Pressure 99/59 L Pulse Oximetry 100 11/07/19 23:30 11/08/19 00:00 11/08/19 00:23 Temperature 37.2 C Pulse Rate 107 H 104 H 108 H Respiratory Rate 30 H 28 H Blood Pressure 110/82 Pulse Oximetry 100 99 11/08/19 00:33 11/08/19 01:55 11/08/19 02:00 Temperature Pulse Rate 111 H 115 H 106 H Respiratory Rate 22 H 31 H Blood Pressure 115/56 L Pulse Oximetry 100 99 11/08/19 04:00 11/08/19 04:33 11/08/19 04:38 Temperature 37.3 C Pulse Rate 109 H 102 H 102 H Respiratory Rate 29 H 28 H 27 H Blood Pressure 98/58 L Pulse Oximetry 99 11/08/19 05:05 11/08/19 05:58 11/08/19 06:00 Temperature Pulse Rate 103 H 98 100 Respiratory Rate 26 H Blood Pressure 118/71 Pulse Oximetry 100 100 11/08/19 07:53 11/08/19 08:00 11/08/19 10:00 Temperature 36.9 C Pulse Rate 92 90 95 Respiratory Rate 27 H 21 H 20 Blood Pressure 111/53 L 123/60 Pulse Oximetry 100 100 100 11/08/19 11:40 11/08/19 12:00 11/08/19 14:00 Temperature 37.2 C Pulse Rate 97 95 99 Respiratory Rate 24 H 24 H 25 H Blood Pressure 102/72 115/90 Pulse Oximetry 100 93 100 Intake/Output Intake/Output: Intake & Output 11/05/19 11/06/19 11/07/19 11/08/19 23:59 23:59 23:59 23:59 Intake Total 1618 1620 1343 798 Output Total 1275 2665 235 85 Balance 343 -6365 1102 713 Meds/Results Medications: Active Medications Generic Name Dose Route Start Last Admin Trade Name Freq PRN Reason Stop Dose Admin Albuterol 2.5 mg 10/29/19 11:48 11/08/19 11:40 Albuterol Sulf Neb 2.5mg/0.5ml INHALATION 2.5 mg Q4HRT PRN Administration Wheezing or high peak pressure Bisacodyl 10 mg 10/14/19 17:03 07/31/20 17:51 Dulcolax Suppository RECTAL 10 mg QAM PRN Administration Constipa
[2019-11-08] MEDS: FAT EMULSIONS IV 20% 250 ML 20.8 ML IVPB (17:47)
[2019-11-08 20:39] LABS: Glucose Point of Care 199 (65-105)
[2019-11-08 23:35] LABS: Glucose Point of Care 226 (65-105)
[2019-11-09] VITALS (39 sets, daily range): BP systolic 81–152; BP diastolic 48–112; PULSE 95–127; RESP 23–36; TEMP 35.5–37.2; O2SAT 96–100
--- NOTE | 2019-11-09 02:43 | PCRCNOTE ---
Window of time for administration has passed. See next scheduled administration.
[2019-11-09] MEDS: IPRATROPIUM BR 0.02% INH SOLN 0.5 MG/2.5 ML VIAL INHALATION ×4 (03:10→19:52)
[2019-11-09] MEDS: ALBUTEROL SULFATE NEB 2.5 MG/0.5 ML INH INHALATION ×3 (03:10→13:49)
[2019-11-09] MEDS: metroNIDAZOLE 500 MG/ISO 100ML 500 MG/100 ML BAG 100 MG IVPB ×3 (05:30→17:55)
[2019-11-09] MEDS: CENTRAL LINE FLUSH 10 ML IV PUSH ×3 (05:31→20:25)
[2019-11-09] MEDS: HEPARIN SOD/D5W 100 UNITS/ML 25,000 UNITS/250 ML BAG 8 UNITS IV CONT (05:31)
[2019-11-09 05:44] LABS: Glucose Point of Care 191 (65-105)
[2019-11-09 05:50] LABS: Basophils Absolute Auto 0.2 K/mm3 (0.0-0.1); Basophils Percent Auto 0.9 % (0.2-1.2); Eosinophils Absolute Auto 0.2 K/mm3 (0-0.3); Eosinophils Percent Auto 1.1 % (0-4.4); Hematocrit 26.4 % (42.0-52.0); Hemoglobin 8.2 g/dL (14.0-18.0); Immature Granulocyte Absolute 1.06 K/mm3 (0.00-0.031); Lymphocytes Absolute Auto 1.77 K/mm3 (0.9-3.2); Lymphocytes Percent Auto 8.4 % (18.3-44.2); Mean Corpuscular HGB Conc 31.1 g/dl (32-36); Mean Corpuscular Hemoglobin 33.1 pg (26-34); Mean Corpuscular Volume 106.5 fl (80-100); Mean Platelet Volume 10.7 fl (7.4-10.4); Monocytes Absolute Auto 1.4 K/mm3 (0.1-0.6); Monocytes Percent Auto 6.8 % (2.6-8.5); Neutrophils Absolute Auto 16.4 K/mm3 (1.3-6.7); Neutrophils Percent Auto 77.8 % (45.5-73.1); Platelet Count Result 528 k/mm3 (150-375); Red Blood Count 2.48 M/mm3 (4.6-6.20)
[2019-11-09 06:01] LABS: INR 2.5; Prothrombin Time 26.9 Seconds (11.1-14.7)
[2019-11-09 06:03] LABS: Alanine Aminotransferase 17 U/L (4-50); Albumin Level 1.9 g/dL (3.5-5.1); Alkaline Phosphatase 227 U/L (38-126); Anion Gap 10 mmol/L (8-16); Aspartate Amino Transferase 36 U/L (17-59); Bilirubin,Total 0.4 mg/dL (0.2-1.3); Blood Urea Nitrogen 33 mg/dL (9-20); Calcium 7.1 mg/dL (8.4-10.2); Carbon Dioxide 21 mmol/L (22-30); Chloride 99 mmol/L (98-107); Estimated CRCL calculation 19 ml/min; Estimated Glomerular Filt Rate 21; Glucose 189 mg/dL (75-110); Magnesium 1.7 mg/dL (1.6-2.3); Phosphorus 5.5 mg/dL (2.5-4.5); Potassium 3.6 mmol/L (3.4-5.0); Sodium 130 mmol/L (137-145)
[2019-11-09 06:04] LABS: Partial Thromboplastin Time 132.1 SECONDS (22.3-36.8)
[2019-11-09 06:14] LABS: Transferrin < 80 mg/dL (206-381)
[2019-11-09 06:56] LABS: Platelet Estimate Adequate (Adequate)
[2019-11-09 06:57] LABS: Anisocytosis 1+ (NORMAL); Hypochromasia 1+ (NORMAL)
[2019-11-09] MEDS: FLUCONAZOLE 200 MG/NACL 100 ML 200 MG/100 ML BAG 100 MG IVPB (08:13)
[2019-11-09] MEDS: PANTOPRAZOLE SODIUM IV 40 MG VIAL IV PUSH ×2 (08:13→20:25)
[2019-11-09] MEDS: NEOMYCIN/POLYMYXIN/BACITRACIN OINTMENT 15 GM TUBE 1 APPLIC TOPICAL (08:14)
[2019-11-09] MEDS: FLUTICASONE PROPIONATE 0.05% NA SPR 16 GM BTL (*BKC) 2 SPRAY NASAL (08:14)
[2019-11-09] MEDS: SILVERGEL (ELTA) 45 ML 1 APPLIC TOPICAL (08:15)
[2019-11-09 10:05] LABS: Hepatitis B Surface Antigen Negative (Negative)
[2019-11-09 10:51] LABS: Alveolar/Arterial O2 Gradient 88.1 mmHg; Base Excess ABG -0.5 mEq/l (+/-2.0); Fractional Inspired Oxygen 30 %; HCO3 ABG 23.4 mEq/l (22.0-26.0); Oxygen Content ABG 15.1 %vol (16.0-22.0); Oxygen Saturation ABG 96.6 % (95.0-100.0); Oxyhemoglobin 94.5 % THb (90.0-100.0); PO2 ABG 83.5 mmHg (80.0-100.0); PO2 FiO2 Ratio Arterial Blood 2.78 %; Total Hemoglobin 11.3 g/dL (12.0-18.0); pH ABG 7.431 (7.350-7.450)
[2019-11-09 10:53] LABS: Device VENTILATOR; Modified Allen's Test Pass; Site Drawn RIGHT RADIAL
[2019-11-09 10:54] LABS: Arterial Blood Gas PEEP 5 cmH2O; Arterial Blood Gas Tidal Volume 300 ml; Arterial Blood Gas Vent Mode CMV; Arterial Blood Gas Ventilator rate 18 /MIN
[2019-11-09] MEDS: EPOETIN ALFA-EPBX 10,000 UNITS/ML VIAL 10000 UNITS IV PUSH (11:00)
--- NOTE | 2019-11-09 11:54 | PCDIET ---
ICU Rounding Note: Tube feedings stopped on 11/06/19 due to perforation of gastric fundus. Patient now on Clinimix 5/15 E at 20mL/hr with 250mL 20% lipids daily. Last recorded weight is 78.0kg which is increased from last review. +I/O. Patient undergoing dialysis at this time. Bowel Motility: FMS remains in place for liquid stool. Labs Reviewed: Hgb (8.2), Hct (26.4), Glu (191), BUN (33), Cr (2.9), Na (130), Alb (1.9), Ade Ca (8.78), PO4 (5.5), TG (158) Meds Noted: Atrovent, Albumin, Albuterol, Synthroid, Sublimaze, Flagyl, Vancomycin, Diflucan, Novolog, Protonix Additional Notes: Still with purulent drainage from abdominal drain. Plan for 2L UF today, if possible. Following daily in ICU rounds. Assessing/reassessing every Saturday/Saturday.
--- NOTE | 2019-11-09 12:39 | PM.PNNEP ---
Progress Note: A&P Assessment and Plan (1) ESRD (end stage renal disease) on dialysis: Code(s): N18.6 - End stage renal disease; Z99.2 - Dependence on renal dialysis Status: Acute Assessment and Plan: HD tomorrow and continue M/W/F schedule for now Blood pressure usually runs low on the treatment started on midodrine to compensate (2) Gastric perforation: Code(s): K25.5 - Chronic or unspecified gastric ulcer with perforation Status: Acute Assessment and Plan: new finding as noted by recent CT imaging complicated by perisplenic abscess s/p drain placement by IR continue current therapy G-tube studies to assess status of gastric perforation (3) Peritonitis (acute) generalized: Code(s): K65.0 - Generalized (acute) peritonitis Status: Acute Assessment and Plan: cultures growing yeast s/p PD catheter removal and washout completed 2 week course of antifungal therapy (4) Hyponatremia: Onset Date: Unknown Code(s): E87.1 - Hypo-osmolality and hyponatremia Status: Acute Assessment and Plan: stable at this time continue to follow (5) Cardiorespiratory arrest: Code(s): I46.9 - Cardiac arrest, cause unspecified Status: Acute Assessment and Plan: presumably precipitated by aspiration now has a tracheostomy remains on mechanical ventilation (6) Encephalopathy: Code(s): G93.40 - Encephalopathy, unspecified Status: Acute Assessment and Plan: some improvement noted continue supportive care Discussed with at bedside. Will continue to follow. Subjective Date/time seen: 11/09/19 12:39 Tolerating dialysis at the time of my visit (seen on HD at ~ 12:15PM); at bedside and we discussed the situation; plan for further imaging to assess if gastric perforation still present; no acute distress noted. Exam Narrative: Exam Narrative: General: WD/WN male in NAD; s/p tracheostomy Heart: irregular rhythm; no rub Lungs: crackles at bases and diminished breath sounds Abdomen: soft, nontender, nondistended, positive bowel sounds Extremities: no cyanosis or clubbing; 1+ edema Skin: no rash Objective Data Vital Signs Vital Signs: Vital Signs Temp Pulse Resp BP Pulse Ox 11/09/19 12:17 120 H 81/52 L 11/09/19 12:15 115 H 81/68 L 11/09/19 12:00 120 H 107/81 11/09/19 11:45 115 H 99/58 L 11/09/19 11:30 116 H 105/93 H 11/09/19 11:15 116 H 100/79 11/09/19 11:00 113 H 100/62 11/09/19 10:45 118 H 97/50 L 11/09/19 10:42 112 H 99 11/09/19 10:30 120 H 101/72 11/09/19 10:15 125 H 152/112 H 11/09/19 10:00 127 H 34 H 152/112 H 100 11/09/19 09:45 122 H 118/93 H 11/09/19 09:30 115 H 103/89 11/09/19 09:16 96 97/65 L 11/09/19 09:00 37.2 C 108 H 25 H 112/48 L 96 11/09/19 08:01 102 H 32 H 100 11/09/19 08:00 36.8 C 105 H 29 H 121/88 100 11/09/19 06:00 99 26 H 101/79 99 11/09/19 05:05 107 H 100 11/09/19 04:00 36.8 C 117 H 28 H 119/64 99 11/09/19 03:19 102 H 25 H 11/09/19 03:11 99 28 H 11/09/19 02:02 95 100 11/09/19 02:00 103 H 28 H 142/99 H 100 11/09/19 00:00 36.9 C 103 H 28 H 132/81 100 11/08/19 23:05 94 100 11/08/19 22:00 94 18 116/59 L 100 11/08/19 20:22 103 H 32 H 11/08/19 20:13 97 29 H 11/08/19 20:10 98 100 11/08/19 20:00 37.1 C 87 24 H 109/51 L 100 11/08/19 18:00 89 11 L 109/60 100 11/08/19 17:04 96 100 11/08/19 16:00 37.3 C 93 20 94/63 L 99 11/08/19 15:26 91 100 11/08/19 14:00 99 25 H 115/90 100 Intake/Output Intake/Output: Intake & Output 08/2111/07/19 11/08/19 11/09/19 23:59 23:59 23:59 23:59 Intake Total 1620 1343 1783 945 Output Total 2665 235 120 325 Balance -1045 1108 5723 148 Meds/Results Medications: Active Medications Generic Name Dose
[2019-11-09 12:42] LABS: Partial Thromboplastin Time 104.3 SECONDS (22.3-36.8)
[2019-11-09] MEDS: HEPARIN SODIUM 1,000 UNITS/ML VIAL 1000 UNITS IV PUSH (12:49)
[2019-11-09 13:11] LABS: Glucose Point of Care 117 (65-105)
--- NOTE | 2019-11-09 14:43 | WPDINTPN ---
Progress Note: A&P Assessment and Plan (1) Acute respiratory failure: Code(s): J96.00 - Acute respiratory failure, unspecified whether with hypoxia or hypercapnia Status: Acute Assessment and Plan: - patient on mechanical ventilation and failure to wean - patient now status post tracheostomy on 10/30/2019 - patient had a a ultrasound-guided thoracentesis done on 10/26 on right and 150 mL fluid was removed which was negative for any Gram stain or culture. Will discuss with Pulmonary again. - Continue CMV at this time. Patient does not tolerate ASV mode with respiratory rate and peak pressure is going up. - Continue physical and occupational therapy to work with the patient - awaits LTAC placement - will place patient on pressure support ventilation with high pressure support - appreciate pulmonology evaluation and recommendation (2) Severe sepsis: Code(s): A41.9 - Sepsis, unspecified organism; R65.20 - Severe sepsis without septic shock Status: Acute Assessment and Plan: septic shock secondary to fungal peritonitis and PNA . Improving/resolving - OFF LEVOPHED since 2:00 a.m. on 10/16/2019 - peritoneal cultures growing Yeast - CT scan of the abdomen and pelvis on 10/16 showed interval progression of patchy bilateral airspace disease, compatible pneumonia. Bilateral pleural effusions right greater than left moderate ascites which appears loculated the left upper abdomen, cannot exclude peritonitis, abdominal wall thickening suspicious for cystitis. peritoneal dialysis catheter present in the pelvis 11/06/2019: CT chest/abdomen /pelvis showed perforation of the posterior fundus of the stomach with splenic infarct and fluid collection , status post CT-guided placement of a drain with purulent drainage - cultures pending - patient remains on metronidazole, cefepime and fluconazole on 11/06/2019, continues to have leukocytosis - cultures from abscess on the posterior aspect of the stomach growing Enterococcus, patient started on vancomycin - 10/19/2019 peritoneal fluid Gram stain , no organism seen - 10/19/2019 peritoneal fluid culture, growing Linda albicans - 10/18/2019 blood cultures negative x2 - 10/21/2019 repeat peritoneal cultures and peritoneal catheter cultures growing Linda albicans (3) Peritonitis: Onset Date: ~10/2019 Code(s): K65.9 - Peritonitis, unspecified Status: Acute Assessment and Plan: Linda peritonitis - status post removal of peritoneal dialysis catheter on 10/21/2019, Catheter and peritoneal fluid sent for culture - SILVA drains x1 draining minimal amount of serosanguineous fluid, surgery following the patient. Dr. Levi wants to remove the drain once output is close to 0 - 2nd SILVA drain was removed - continue IV fluconazole per infectious disease (4) Aspiration pneumonia: Code(s): J69.0 - Pneumonitis due to inhalation of food and vomit Status: Acute Assessment and Plan: completed course of antibiotics (5) Encephalopathy: Code(s): G93.40 - Encephalopathy, unspecified Status: Acute Assessment and Plan: - gradually improving - continue to hold sedation - encephalopathy likely multifactorial related to metabolic /uremic encephalopathy, infectious encephalopathy, medication related - neurology has been consulted and appreciate their evaluation and recommendations - EEG was done on 10/20/2019 and discussed with Neurology, EEG had significant slowing, likely related to severe encephalopathy. No epileptiform discharges were seen - patient did have a CT scan of the brain on 10/18/2019: was negative for any acute intracranial pathology (6) Cardiorespiratory arrest: Code(s): I46.9 - Cardiac arrest, cause unspecified Status: Acute Assessment and Plan: PEA arrest likely due aspiration,ROSC after 1 round of epinephrine - post arrest pt was following commands and s
--- NOTE | 2019-11-09 15:44 | PM.PNGS ---
Progress Note: A&P Assessment and Plan (1) Gastric perforation: Code(s): K25.5 - Chronic or unspecified gastric ulcer with perforation Status: Acute Assessment and Plan: cont drain, abx, G tube to LIS, abx. Gastrografin study through the gastrostomy tube today shows that there is a perforation of the fundus of the stomach which connects to the fluid collection drained last Saturday in the left upper quadrant of the abdomen. No apparent bleeding since this occurred Even though patient is anticoagulated now for the clot around his dialysis catheter in the right internal jugular area. options available for treatment of this would be conservative management as we are now continuing high-dose Protonix, fluid collection drainage and see if healing will occur with conservative management and support with TPN. Another option would be to consider consider endoscopic treatment with possible clip closure of the defect in the fundus of the stomach from the inside. Gastrology here does not have experience doing this so patient would need to be possibly transferred where this be considered. Third option would be surgical intervention again to try to mobilize the stomach, identify the perforation site, over-sew or staple this followed by a omental or fatty patch. I doubt that this could be done laparoscopically or robotically in view of the patient's previous peritonitis. Will also be difficult for the patient to survive an open surgery like this since that would probably have to remove the G-tube in order to get enough room to work in this difficult left upper quadrant area. He is already working on poor reserves with a low albumin and 1 have difficulty healing in view of his continued need for dialysis. Therefore, for today will continue current treatment since he seems at least stable on the ventilator. Will see how using vancomycin drainage and support does overnight. Dr. Terrell and I plan to have discussion with the patient's tomorrow morning. In general this appears to be the fairly failure of the 3rd organ system with the previous failures of his renal and respiratory systems. Perhaps the best solution for the patient and his family would be to consider hospice and comfort care. (2) Severe sepsis: Code(s): A41.9 - Sepsis, unspecified organism; R65.20 - Severe sepsis without septic shock Status: Acute Assessment and Plan: cont drain, abx (3) ESRD (end stage renal disease) on dialysis: Code(s): N18.6 - End stage renal disease; Z99.2 - Dependence on renal dialysis Status: Acute Assessment and Plan: cont HD thru [facility] HD cath (4) Ventilator dependence: Code(s): Z99.11 - Dependence on respirator [ventilator] status Status: Acute Assessment and Plan: wean as rocio Additional Plan Will plan to follow output of the remaining SILVA drain until he goes to an LTAC. Most likely will leave the this one in until there is almost no output. The left upper quadrant drain that was in the lesser sac was removed 11/02. Patient currently on Fluconazole for an antifungal. I will plan to see the patient with Dr. Jessica alegria tomorrow in the morning and perhaps talk further with the patient's regarding the possibility of comfort care and hospice. Subjective Subjective Date/Time Seen: 11/09/19 15:44 Post Op day: POD #10 for open G-tube and #19 for PD cath removal and peritoneal wash out and drainage. Interval history: Patient is still on ventilator via tracheostomy. He tolerated his dialysis okay this morning. Mental status is still limited to eye opening and following a few limited commands. Over the weekend there was significant drainage from the left upper quadrant abscess drain that was placed after his CT scan of the abdomen pelvis and chest last Saturday. This is still draining a creamy purulent drainage. It cultured enterococcus and vancomycin has been started. Review of
--- NOTE | 2019-11-09 16:30 | WPDGIPROGNO ---
Progress Note: A&P Additional Plan was asked to see patient by surgery and thread singer service patient identified with fluid collection behind the stomach. Appears patient may have had a gastric perforation. External percutaneous drain was placed at the end of last week. Physical exam reveals patient to remain on the ventilator. HEENT exam unremarkable lungs clear. Heart without murmur. Abdomen is soft external drain in place. G-tube in place within the body of the stomach. Impression 1. Gastric perforation with external drain of fluid collection behind the stomach. Gastrografin upper GI study performed today reveals defect still present in the fundus of the stomach. Would not pursue endoscopic treatment of this. Endoscopic repair is beyond capabilities of our hospital . it may not be possible even at a tertiary care center. Agree with surgical follow-up. Note that no ulcer was identified at the time of endoscopy a week or so ago. 2. Gastrostomy tube appears to be in good place. Surgery following. I would not use a given the gastric perforation at this time. Continue NPO and NG tube decompression. 3. Peritonitis peers to have been from Linda peritonitis. Patient remains and antifungal therapy. 4. Ventilator dependency. Subjective Date/time seen: 11/09/19 16:30 Objective Data Vital Signs Vital Signs: Vital Signs - 24 hr 11/08/19 17:04 11/08/19 18:00 11/08/19 20:00 Temperature 98.8 F Pulse Rate 96 89 87 Respiratory Rate 11 L 24 H Blood Pressure 109/60 109/51 L Pulse Oximetry 100 100 100 11/08/19 20:10 11/08/19 20:13 11/08/19 20:22 Temperature Pulse Rate 98 97 103 H Respiratory Rate 29 H 32 H Blood Pressure Pulse Oximetry 100 11/08/19 22:00 11/08/19 23:05 11/09/19 00:00 Temperature 98.4 F Pulse Rate 94 94 103 H Respiratory Rate 18 28 H Blood Pressure 116/59 L 132/81 Pulse Oximetry 100 100 100 11/09/19 02:00 11/09/19 02:02 11/09/19 03:11 Temperature Pulse Rate 103 H 95 99 Respiratory Rate 28 H 28 H Blood Pressure 142/99 H Pulse Oximetry 100 100 11/09/19 03:19 11/09/19 04:00 11/09/19 05:05 Temperature 98.3 F Pulse Rate 102 H 117 H 107 H Respiratory Rate 25 H 28 H Blood Pressure 119/64 Pulse Oximetry 99 100 11/09/19 06:00 11/09/19 08:00 11/09/19 08:01 Temperature 98.2 F Pulse Rate 99 105 H 102 H Respiratory Rate 26 H 29 H 32 H Blood Pressure 101/79 121/88 Pulse Oximetry 99 100 100 11/09/19 08:11 11/09/19 09:00 11/09/19 09:16 Temperature 98.9 F Pulse Rate 117 H 108 H 96 Respiratory Rate 31 H 25 H Blood Pressure 112/48 L 97/65 L Pulse Oximetry 96 11/09/19 09:30 11/09/19 09:45 11/09/19 10:00 Temperature Pulse Rate 115 H 122 H 127 H Respiratory Rate 34 H Blood Pressure 103/89 118/93 H 152/112 H Pulse Oximetry 100 11/09/19 10:15 11/09/19 10:30 11/09/19 10:42 Temperature Pulse Rate 125 H 120 H 112 H Respiratory Rate Blood Pressure 152/112 H 101/72 Pulse Oximetry 99 11/09/19 10:45 11/09/19 11:00 11/09/19 11:15 Temperature Pulse Rate 118 H 113 H 116 H Respiratory Rate Blood Pressure 97/50 L 100/62 100/79 Pulse Oximetry 11/09/19 11:30 11/09/19 11:45 11/09/19 12:00 Temperature Pulse Rate 116 H 115 H 117 H Respiratory Rate 36 H Blood Pressure 105/93 H 99/58 L 107/81 Pulse Oximetry 97 11/09/19 12:15 11/09/19 12:17 11/09/19 12:25 Temperature Pulse Rate 115 H 120 H 117 H Respiratory Rate Blood Pressure 81/68 L 81/52 L 106/72 Pulse Oximetry 11/09/19 12:40 11/09/19 13:50 11/09/19 14:00 Temperature 97.7 F Pulse Rate 106 H 111 H 116 H Respiratory Rate 30 H 30 H 31 H Blood Pressure 97/68 L 101/89 Pulse Oximetry 100 100 100 11/09/19 16:00 Temperature Pulse Rate 104 H Respiratory Rate 25 H Blood Pressure 102/55 L Pulse Oximetry 100 Intake/Output Intake/Output: Intake & Output 11/06/19 11/07/19 11/08/19 11/09/19 23:59 23:59 23:59
--- NOTE | 2019-11-09 17:03 | PM.IMPN ---
Progress Note: A&P Assessment and Plan (1) Gastric perforation: Code(s): K25.5 - Chronic or unspecified gastric ulcer with perforation Status: Acute Assessment and Plan: Gastrografin study confirmed the perforation of the fundus of the stomach.. He is not a good candidate for surgery given his multiple comorbidities ( mainly current respiratory failure). It seems that an endoscopic closure might also going to be difficult to obtain. Continue antibiotics, fluconazole and protonix for now. Hospice care might be in this patient best interest if he does not improve with current non invasive treatment. (2) Severe sepsis: Code(s): A41.9 - Sepsis, unspecified organism; R65.20 - Severe sepsis without septic shock Status: Acute Assessment and Plan: Likely secondary to peritonitis, his dialysis catheter was removed however now he has a gastric perforation leaking into the peritoneum. No on vasopressors now. (3) ESRD (end stage renal disease) on dialysis: Code(s): N18.6 - End stage renal disease; Z99.2 - Dependence on renal dialysis Status: Acute Assessment and Plan: cont HD thru [facility] HD cath (4) Ventilator dependence: Code(s): Z99.11 - Dependence on respirator [ventilator] status Status: Acute Assessment and Plan: Pulmonary has been consulted. Subjective Date/time seen: Looks chronically ill , has a tracheostomy and remains on mechanical ventilator support. 11/09/19 17:03 Exam Const: General: no acute distress Other: Chronically ill. Neck: Neck: supple Resp: Auscultation: diminished lung sounds Other: Has mild rales. No wheezing or rhonchi. Cardio: Rate: regular rate GI: Other: SILVA drain with mild serosanguineous drainage. G tube Hyperactive bowel sounds. Extrem: Other: Trace edema in both lower extremities. Objective Data Vital Signs Vital Signs: Vital Signs - 24 hr 11/08/19 17:04 11/08/19 18:00 11/08/19 20:00 Temperature 98.8 F Pulse Rate 96 89 87 Respiratory Rate 11 L 24 H Blood Pressure 109/60 109/51 L Pulse Oximetry 100 100 100 11/08/19 20:10 11/08/19 20:13 11/08/19 20:22 Temperature Pulse Rate 98 97 103 H Respiratory Rate 29 H 32 H Blood Pressure Pulse Oximetry 100 11/08/19 22:00 11/08/19 23:05 11/09/19 00:00 Temperature 98.4 F Pulse Rate 94 94 103 H Respiratory Rate 18 28 H Blood Pressure 116/59 L 132/81 Pulse Oximetry 100 100 100 11/09/19 02:00 11/09/19 02:02 11/09/19 03:11 Temperature Pulse Rate 103 H 95 99 Respiratory Rate 28 H 28 H Blood Pressure 142/99 H Pulse Oximetry 100 100 11/09/19 03:19 11/09/19 04:00 11/09/19 05:05 Temperature 98.3 F Pulse Rate 102 H 117 H 107 H Respiratory Rate 25 H 28 H Blood Pressure 119/64 Pulse Oximetry 99 100 11/09/19 06:00 11/09/19 08:00 11/09/19 08:01 Temperature 98.2 F Pulse Rate 99 105 H 102 H Respiratory Rate 26 H 29 H 32 H Blood Pressure 101/79 121/88 Pulse Oximetry 99 100 100 11/09/19 08:11 11/09/19 09:00 11/09/19 09:16 Temperature 98.9 F Pulse Rate 117 H 108 H 96 Respiratory Rate 31 H 25 H Blood Pressure 112/48 L 97/65 L Pulse Oximetry 96 11/09/19 09:30 11/09/19 09:45 11/09/19 10:00 Temperature Pulse Rate 115 H 122 H 127 H Respiratory Rate 34 H Blood Pressure 103/89 118/93 H 152/112 H Pulse Oximetry 100 11/09/19 10:15 11/09/19 10:30 11/09/19 10:42 Temperature Pulse Rate 125 H 120 H 112 H Respiratory Rate Blood Pressure 152/112 H 101/72 Pulse Oximetry 99 11/09/19 10:45 11/09/19 11:00 11/09/19 11:15 Temperature Pulse Rate 118 H 113 H 116 H Respiratory Rate Blood Pressure 97/50 L 100/62 100/79 Pulse Oximetry 11/09/19 11:30 11/09/19 11:45 11/09/19 12:00 Temperature Pulse Rate 116 H 115 H 117 H Respiratory Rate 36 H Blood Pressure 105/93 H 99/58 L 107/81 Pulse Oximetry 97 11/09/19 12:15 11/09/19 12:17 11/09/19 12:25 [facility]
--- NOTE | 2019-11-09 17:53 | PM.PNPUL ---
Progress Note: A&P Assessment and Plan (1) Ventilator dependence: Code(s): Z99.11 - Dependence on respirator [ventilator] status Status: Acute Assessment and Plan: daily trial of PSV of 15-20 with PEEP of 5 and wean slowly as tolerated (2) Nosocomial pneumonia: Code(s): J18.9 - Pneumonia, unspecified organism; Y95 - Nosocomial condition Status: Acute Assessment and Plan: Recommend sputum culture on Cefepime and Metroniadazole as well as fluconazole We will consider adding Vancomycin (3) Pleural effusion on right: Code(s): J90 - Pleural effusion, not elsewhere classified Status: Acute Assessment and Plan: May need a chest tube placement with antibiotics as the fluid may be complicated or loculated. Subjective Date/time seen: 11/09/19 17:53 This 78 yo man is seen in ICU 9 for ventilator dependence, pleural effusion, pneumonia. He is hemodynamically stable today; had an imaging study today: 1. Percutaneous gastrostomy tube bulb in the body of the stomach with injected contrast extending through a defect in the gastric wall the fundus. The extraluminal extravasated contrast underlying the left hemidiaphragm is rapidly collected by the left upper quadrant percutaneous abscess drain. 2. Small left and [id number] right pleural effusions. He is on Cefepime, metroniadazole, fluconazole; CMV with TV of 300, Peak pressure around 30 and minute ventilation around 8.0 He does not tolerate ASV mode. Review of Systems Review of Systems: All systems reviewed & are unremarkable except as noted in HPI and below Exam Const: General: comfortable and no acute distress HENMT: Head: normal to inspection Ears: hearing grossly abnormal bilaterally Face and sinus: normal facial exam Face images: 1. trach site is clean, no drainage Mouth: Yes Normal oral and palatal mucosa present Eyes: General: appearance normal, both eyes and all related structures Neck: Neck: supple and no JVD Resp: Auscultation: crackles, rhonchi, wheezes and diminished lung sounds Cardio: Rate: regular rate and tachycardic Rhythm: regular rhythm Heart sounds: no murmurs GI: Inspection: distended Auscultation: normal bowel sounds Skin: General skin exam: normal color and no rashes or lesions noted Extrem: General: normal to inspection Objective Data Vital Signs Vital Signs: Vital Signs - 24 hr 11/08/19 18:00 11/08/19 20:00 11/08/19 20:10 Temperature 37.1 C Pulse Rate 89 87 98 Respiratory Rate 11 L 24 H Blood Pressure 109/60 109/51 L Pulse Oximetry 100 100 100 11/08/19 20:13 11/08/19 20:22 11/08/19 22:00 Temperature Pulse Rate 97 103 H 94 Respiratory Rate 29 H 32 H 18 Blood Pressure 116/59 L Pulse Oximetry 100 11/08/19 23:05 11/09/19 00:00 11/09/19 02:00 Temperature 36.9 C Pulse Rate 94 103 H 103 H Respiratory Rate 28 H 28 H Blood Pressure 132/81 142/99 H Pulse Oximetry 100 100 100 11/09/19 02:02 11/09/19 03:11 11/09/19 03:19 Temperature Pulse Rate 95 99 102 H Respiratory Rate 28 H 25 H Blood Pressure Pulse Oximetry 100 11/09/19 04:00 11/09/19 05:05 11/09/19 06:00 Temperature 36.8 C Pulse Rate 117 H 107 H 99 Respiratory Rate 28 H 26 H Blood Pressure 119/64 101/79 Pulse Oximetry 99 100 99 11/09/19 08:00 11/09/19 08:01 11/09/19 08:11 Temperature 36.8 C Pulse Rate 105 H 102 H 117 H Respiratory Rate 29 H 32 H 31 H Blood Pressure 121/88 Pulse Oximetry 100 100 08/24/20 09:00 11/09/19 09:16 11/09/19 09:30 Temperature 37.2 C Pulse Rate 108 H 96 115 H Respiratory Rate 25 H Blood Pressure 112/48 L 97/65 L 103/89 Pulse Oximetry 96 11/09/19 09:45 11/09/19 10:00 11/09/19 10:15 Temperature Pulse Rate 122
[2019-11-09] MEDS: FAT EMULSIONS IV 20% 250 ML 20.8 ML IVPB (17:54)
[2019-11-09 18:11] LABS: Glucose Point of Care 180 (65-105)
[2019-11-09 18:35] LABS: Partial Thromboplastin Time 99.4 SECONDS (22.3-36.8)
[2019-11-10] VITALS (26 sets, daily range): BP systolic 88–126; BP diastolic 48–91; PULSE 91–112; RESP 20–33; TEMP 36.6–37.2; O2SAT 94–100
[2019-11-10] MEDS: metroNIDAZOLE 500 MG/ISO 100ML 500 MG/100 ML BAG 100 MG IVPB ×4 (00:05→17:27)
[2019-11-10 00:06] LABS: Glucose Point of Care 202 (65-105)
[2019-11-10] MEDS: INSULIN ASPART (*BKC) 100 UNITS/ML SUB-Q (00:06)
[2019-11-10] MEDS: IPRATROPIUM BR 0.02% INH SOLN 0.5 MG/2.5 ML VIAL INHALATION ×4 (02:17→20:22)
[2019-11-10 05:02] LABS: Hematocrit 24.4 % (42.0-52.0); Hemoglobin 7.7 g/dL (14.0-18.0); Mean Corpuscular HGB Conc 31.6 g/dl (32-36); Mean Corpuscular Hemoglobin 33.9 pg (26-34); Mean Corpuscular Volume 107.5 fl (80-100); Mean Platelet Volume 10.6 fl (7.4-10.4); Platelet Count Result 491 k/mm3 (150-375); Red Blood Count 2.27 M/mm3 (4.6-6.20); Red Cell Distribution Width 21.2 % (11.5-14.5); White Blood Count 21.5 K/mm3 (4.5-10.0)
[2019-11-10 05:07] LABS: Glucose Point of Care 142 (65-105)
[2019-11-10] MEDS: CENTRAL LINE FLUSH 10 ML IV PUSH ×3 (05:07→20:21)
[2019-11-10 05:36] LABS: Partial Thromboplastin Time > 200.0 SECONDS (22.3-36.8)
[2019-11-10 05:55] LABS: Alanine Aminotransferase 16 U/L (4-50); Albumin Level 1.8 g/dL (3.5-5.1); Alkaline Phosphatase 238 U/L (38-126); Anion Gap 8 mmol/L (8-16); Aspartate Amino Transferase 33 U/L (17-59); Bilirubin,Total 0.3 mg/dL (0.2-1.3); Blood Urea Nitrogen 17 mg/dL (9-20); Calcium 7.3 mg/dL (8.4-10.2); Carbon Dioxide 23 mmol/L (22-30); Chloride 102 mmol/L (98-107); Estimated CRCL calculation 28 ml/min; Estimated Glomerular Filt Rate 35; Glucose 137 mg/dL (75-110); Magnesium 1.7 mg/dL (1.6-2.3); Phosphorus 3.4 mg/dL (2.5-4.5); Potassium 3.4 mmol/L (3.4-5.0); Sodium 133 mmol/L (137-145)
[2019-11-10] MEDS: FLUTICASONE PROPIONATE 0.05% NA SPR 16 GM BTL (*BKC) 2 SPRAY NASAL (08:31)
[2019-11-10] MEDS: NEOMYCIN/POLYMYXIN/BACITRACIN OINTMENT 15 GM TUBE 1 APPLIC TOPICAL (08:32)
[2019-11-10] MEDS: PANTOPRAZOLE SODIUM IV 40 MG VIAL IV PUSH ×2 (08:33→20:21)
[2019-11-10] MEDS: SILVERGEL (ELTA) 45 ML 1 APPLIC TOPICAL (08:34)
[2019-11-10] MEDS: FLUCONAZOLE 200 MG/NACL 100 ML 200 MG/100 ML BAG 100 MG IVPB (08:43)
[2019-11-10] MEDS: ALBUTEROL SULFATE NEB 2.5 MG/0.5 ML INH INHALATION ×3 (09:04→20:22)
--- NOTE | 2019-11-10 09:29 | PM.PNNEP ---
Progress Note: A&P Assessment and Plan (1) ESRD (end stage renal disease) on dialysis: Code(s): N18.6 - End stage renal disease; Z99.2 - Dependence on renal dialysis Status: Acute Assessment and Plan: HD tomorrow and continue M/W/F schedule for now Blood pressure usually runs low on the treatment started on midodrine to compensate (2) Gastric perforation: Code(s): K25.5 - Chronic or unspecified gastric ulcer with perforation Status: Acute Assessment and Plan: new finding as noted by recent CT imaging complicated by perisplenic abscess s/p drain placement by IR repeat imaging demonstrate gastric leak still present continue current therapy (3) Peritonitis (acute) generalized: Code(s): K65.0 - Generalized (acute) peritonitis Status: Acute Assessment and Plan: cultures growing yeast s/p PD catheter removal and washout completed 2 week course of antifungal therapy (4) Hyponatremia: Onset Date: Unknown Code(s): E87.1 - Hypo-osmolality and hyponatremia Status: Acute Assessment and Plan: stable at this time continue to follow (5) Cardiorespiratory arrest: Code(s): I46.9 - Cardiac arrest, cause unspecified Status: Acute Assessment and Plan: presumably precipitated by aspiration now has a tracheostomy remains on mechanical ventilation (6) Encephalopathy: Code(s): G93.40 - Encephalopathy, unspecified Status: Acute Assessment and Plan: some improvement noted continue supportive care Will continue to follow. Subjective Date/time seen: 11/10/19 09:29 Tolerated dialysis yesterday without any acute issues or problems; imaging done today still demonstrates evidence of gastric perforation; no other acute isues or problems at this time or earlier today. Exam Narrative: Exam Narrative: General: WD/WN male in NAD; s/p tracheostomy Heart: irregular rhythm; no rub Lungs: coarse and diminished breath sounds Abdomen: soft, nontender, nondistended, positive bowel sounds Extremities: no cyanosis or clubbing; 1+ edema Skin: no nodules Objective Data Vital Signs Vital Signs: Vital Signs Temp Pulse Resp BP Pulse Ox 11/10/19 08:00 37.2 C 96 23 H 94/52 L 100 11/10/19 06:00 95 25 H 103/55 L 100 11/10/19 04:32 99 100 11/10/19 04:00 36.8 C 94 20 110/50 L 100 08/25/20 02:19 110 H 28 H 11/10/19 02:18 110 H 100 11/10/19 02:00 98 26 H 102/61 100 11/10/19 00:00 36.6 C 112 H 30 H 111/91 H 99 11/09/19 23:10 112 H 100 11/09/19 22:00 109 H 26 H 103/80 100 11/09/19 20:00 36.4 C 101 H 24 H 108/59 L 100 11/09/19 19:52 96 30 H 100 11/09/19 18:00 105 H 23 H 94/59 L 100 11/09/19 17:00 102 H 100 11/09/19 16:00 104 H 25 H 102/55 L 100 11/09/19 14:00 116 H 31 H 101/89 100 11/09/19 13:50 111 H 30 H 100 11/09/19 12:40 36.5 C 106 H 30 H 97/68 L 100 11/09/19 12:25 117 H 106/72 11/09/19 12:17 120 H 81/52 L 11/09/19 12:15 115 H 81/68 L 11/09/19 12:00 117 H 36 H 107/81 97 11/09/19 11:45 115 H 99/58 L 11/09/19 11:30 116 H 105/93 H 11/09/19 11:15 116 H 100/79 11/09/19 11:00 113 H 100/62 11/09/19 10:45 118 H 97/50 L 11/09/19 10:42 112 H 99 11/09/19 10:30 120 H 101/72 11/09/19 10:15 125 H 152/112 H 11/09/19 10:00 127 H 34 H 152/112 H 100 11/09/19 09:45 122 H 118/93 H Intake/Output Intake/Output: Intake & Output 11/07/19 11/08/19 11/09/19 11/10/19 23:59 23:59 23:59 23:59 Intake Total 1343 1783 1790 811.1 Output Total 304 452 3538 130 Balance 1108 1663 -798 681.1 Meds/Results Medications: Active Medications Generic Name Dose Route Start Last Admin Trade Name Guichoq PRN Reason Stop Dose Admin Albuterol 2.5 mg 10/29/19 11:48 11/10/19 09:04 Albuterol Sulf Neb 2.5mg/0.5ml INHALATION 2.5 mg Q4HR
--- NOTE | 2019-11-10 09:53 | PM.PNGS ---
Progress Note: A&P Assessment and Plan (1) Gastric perforation: Code(s): K25.5 - Chronic or unspecified gastric ulcer with perforation Status: Acute Assessment and Plan: cont drain, abx, G tube to LIS, abx. Gastrografin study through the gastrostomy tube on 11/09/2019 showed that there is a perforation of the fundus of the stomach which connects to the fluid collection drained on11/06/2019 in the left upper quadrant of the abdomen. No apparent bleeding since this occurred Even though patient is anticoagulated now for the clot around his dialysis catheter in the right internal jugular area. Options available for treatment of this would be conservative management as we are now continuing with high-dose Protonix, fluid collection drainage and see if healing will occur with conservative management and support with TPN. Another option would be to consider consider endoscopic treatment with possible clip closure and stenting of the defect in the fundus of the stomach from the inside. Gastrology here does not have experience doing this so patient would need to be possibly be transferred where this be considered. A third option would be surgical intervention again to try to mobilize the stomach, identify the perforation site, over-sew or staple this closed, followed by a omental or fatty patch. I doubt that this could be done laparoscopically or robotically in view of the patient's previous peritonitis. It will also be difficult for the patient to survive an open surgery like this since that would mean that I probably would have to remove the G-tube in order to get enough room to work in this difficult left upper quadrant area. He is already working on poor reserves with a low albumin, respiratory and renal failure and therefore will have difficulty healing in view of his continued need for dialysis. Therefore, for today will continue current treatment since he seems at least stable on the ventilator. Will see how using vancomycin drainage and support does overnight. Dr. White and I plan to have discussion with the patient's tomorrow morning. ( In a discussion with the patient's nurse last evening after she received the report of the stomach perforation she may seemed to be more open to consideration for palliative treatment ). In general this appears to be the failure of the 3rd organ system with the previous failures of his renal and respiratory systems. Perhaps the best solution for the patient and his family would be to consider hospice and comfort care. (2) Severe sepsis: Code(s): A41.9 - Sepsis, unspecified organism; R65.20 - Severe sepsis without septic shock Status: Acute Assessment and Plan: cont drain, abx (3) ESRD (end stage renal disease) on dialysis: Code(s): N18.6 - End stage renal disease; Z99.2 - Dependence on renal dialysis Status: Acute Assessment and Plan: cont HD thru [facility] HD cath (4) Ventilator dependence: Code(s): Z99.11 - Dependence on respirator [ventilator] status Status: Acute Assessment and Plan: wean as rocio Additional Plan Will plan to follow output of the remaining SILVA drain until he goes to an LTAC. Most likely will leave the this one in until there is almost no output. The left upper quadrant drain that was in the lesser sac was removed 11/02. Patient currently on Fluconazole for an antifungal. Dr. Lopez and I will talk further with the patient's regarding the possibility of comfort care and hospice today. Subjective Subjective Date/Time Seen: 11/10/19 09:53 Post Op day: Postop day 11 status post open G-tube placement and postop day 20. Status post removal of PD catheter and peritoneal irrigation Interval history: Patient's vital signs stable with a little bit lower blood pressure overnight. He is not on any pressors. Still on a ventilator and without much difference in neurologic function. Discussed his sit
--- NOTE | 2019-11-10 11:25 | P.PNINT_ITS ---
Progress Note: A&P Assessment and Plan (1) Acute respiratory failure: Code(s): J96.00 - Acute respiratory failure, unspecified whether with hypoxia or hypercapnia Status: Acute Assessment and Plan: - patient on mechanical ventilation - patient now status post tracheostomy on 10/30/2019 - patient had a a ultrasound-guided thoracentesis done on 10/26 on right and 150 mL fluid was removed which was negative for any Gram stain or culture. - Continue CMV at this time. - Continue physical and occupational therapy to work with the patient - awaits LTAC placement - will place patient on pressure support ventilation with high pressure support - appreciate pulmonology evaluation and recommendation (2) Severe sepsis: Code(s): A41.9 - Sepsis, unspecified organism; R65.20 - Severe sepsis without septic shock Status: Acute Assessment and Plan: septic shock secondary to fungal peritonitis and PNA . Improving/resolving - OFF LEVOPHED since 2:00 a.m. on 10/16/2019 - peritoneal cultures growing Yeast - CT scan of the abdomen and pelvis on 10/16 showed interval progression of patchy bilateral airspace disease, compatible pneumonia. Bilateral pleural effusions right greater than left moderate ascites which appears loculated the left upper abdomen, cannot exclude peritonitis, abdominal wall thickening suspicious for cystitis. peritoneal dialysis catheter present in the pelvis 11/06/2019: CT chest/abdomen /pelvis showed perforation of the posterior fundus of the stomach with splenic infarct and fluid collection , status post CT-guided placement of a drain with purulent drainage - cultures pending - patient remains on metronidazole, cefepime and fluconazole on 11/06/2019, continues to have leukocytosis - cultures from abscess on the posterior aspect of the stomach growing Enterococcus, patient started on vancomycin 11/08 - 10/19/2019 peritoneal fluid Gram stain , no organism seen - 10/19/2019 peritoneal fluid culture, growing Linda albicans - 10/18/2019 blood cultures negative x2 - 10/21/2019 repeat peritoneal cultures and peritoneal catheter cultures growing Linda albicans (3) Peritonitis: Onset Date: ~10/2019 Code(s): K65.9 - Peritonitis, unspecified Status: Acute Assessment and Plan: Linad peritonitis - status post removal of peritoneal dialysis catheter on 10/21/2019, C atheter and peritoneal fluid sent for culture - SILVA drains x1 draining minimal amount of serosanguineous fluid, surgery following the patient. Dr. Levi wants to remove the drain once output is c lose to 0 - 2nd SILVA drain was removed - continue IV fluconazole per infectious disease (4) Aspiration pneumonia: Code(s): J69.0 - Pneumonitis due to inhalation of food and vomit Status: Acute Assessment and Plan: completed course of antibiotics (5) Encephalopathy: Code(s): G93.40 - Encephalopathy, unspecified Status: Acute Assessment and Plan: - gradually improving - continue to hold sedation - encephalopathy likely multifactorial related to metabolic /uremic encephalopathy, infectious encephalopathy, medication related - neurology has been consulted and appreciate their evaluation and recommendations - EEG was done on 10/20/2019 and discussed with Neurology, EEG had significant slowing, likely related to severe encephalopathy. No epileptiform discharges were seen - patient did have a CT scan of the brain on 10/18/2019: was negative for any acute intracranial pathology (6) Cardiorespiratory arrest:
--- NOTE | 2019-11-10 11:26 | PCDIET ---
Nutrition Follow-Up Complete: Nutrition Diagnosis: Inadequate oral intake related to oral intubation as evidenced by NPO status. Nutrition Goal: Patient to meet estimated nutritional needs. Goal in progress. MD increased Clinimix 07/30 E to 30mL/hr today with 250mL 20% lipids which provides 1011kcal and 36g protein per day. Last recorded weight is 78 kg which is stable. Patient had 1.6L UF yesterday (11/09/19). Bowel Motility: FMS in place. Labs Reviewed: Hgb (7.7), Hct (24.4), Glu (142), Cr (1.9), Na (133), Alb (1.8), Ade Ca (9.06), PO4 (5.5) Meds Noted: Albumin, Albuterol, Cefepime, Diflucan, Novolog, Atrovent, Flagyl, Protonix, Vancomycin Additional Notes: No change in skin reported. MD agreeable to gradually advance TPN as tolerated. Will continue to monitor with same goal. Nutrition Monitoring and Evaluation: Follow up every Saturday/Saturday. Follow daily in ICU rounds.
[2019-11-10 12:38] LABS: Glucose Point of Care 175 (65-105)
--- NOTE | 2019-11-10 13:51 | PC.NURSE ---
Dr. Lopez updating spouse at bedside with daughter on telephone.
--- NOTE | 2019-11-10 14:50 | PM.IMPN ---
Progress Note: A&P Assessment and Plan (1) Gastric perforation: Code(s): K25.5 - Chronic or unspecified gastric ulcer with perforation Status: Acute Assessment and Plan: Gastrografin study confirmed the perforation of the fundus of the stomach.. He is not a good candidate for surgery given his multiple comorbidities ( 3 organ systems in failure at this time respiratory, renal and GI. ). It seems that an endoscopic closure might also going to be difficult to obtain. Continue antibiotics, fluconazole and protonix for now. Hospice care might be in this patient best interest if he does not improve with current non invasive treatment. (2) Severe sepsis: Code(s): A41.9 - Sepsis, unspecified organism; R65.20 - Severe sepsis without septic shock Status: Acute Assessment and Plan: Likely secondary to peritonitis, his dialysis catheter was removed however now he has a gastric perforation leaking into the peritoneum. Not on vasopressors now. (3) ESRD (end stage renal disease) on dialysis: Code(s): N18.6 - End stage renal disease; Z99.2 - Dependence on renal dialysis Status: Acute Assessment and Plan: cont HD thru [facility] HD cath (4) Ventilator dependence: Code(s): Z99.11 - Dependence on respirator [ventilator] status Status: Acute Assessment and Plan: Pulmonary has been consulted. Subjective Date/time seen: Unchanged condition since yesterday, still not following commands. 11/10/19 14:50 Exam Const: General: no acute distress Other: Chronically ill. Neck: Neck: supple Resp: Auscultation: diminished lung sounds Other: Has mild rales. No wheezing or rhonchi. Cardio: Rate: regular rate GI: Other: SILVA drain with mild serosanguineous drainage. G tube Hyperactive bowel sounds. Extrem: Other: Trace edema in both lower extremities. Objective Data Vital Signs Vital Signs: Vital Signs - 24 hr 11/09/19 16:00 11/09/19 17:00 11/09/19 18:00 Temperature Pulse Rate 104 H 102 H 105 H Respiratory Rate 25 H 23 H Blood Pressure 102/55 L 94/59 L Pulse Oximetry 100 100 100 11/09/19 19:52 11/09/19 20:00 11/09/19 22:00 Temperature 97.6 F Pulse Rate 96 101 H 109 H Respiratory Rate 30 H 24 H 26 H Blood Pressure 108/59 L 103/80 Pulse Oximetry 100 100 100 11/09/19 23:10 11/10/19 00:00 11/10/19 02:00 Temperature 97.9 F Pulse Rate 112 H 112 H 98 Respiratory Rate 30 H 26 H Blood Pressure 111/91 H 102/61 Pulse Oximetry 100 99 100 11/10/19 02:18 11/10/19 02:19 11/10/19 04:00 Temperature 98.2 F Pulse Rate 110 H 110 H 94 Respiratory Rate 28 H 20 Blood Pressure 110/50 L Pulse Oximetry 100 100 11/10/19 04:32 11/10/19 06:00 11/10/19 08:00 Temperature 99.0 F Pulse Rate 99 95 97 Respiratory Rate 25 H 23 H Blood Pressure 103/55 L 94/52 L Pulse Oximetry 100 100 100 11/10/19 09:03 11/10/19 09:15 11/10/19 10:00 Temperature Pulse Rate 93 93 97 Respiratory Rate 30 H 30 H 22 H Blood Pressure 97/79 L Pulse Oximetry 94 100 11/10/19 12:00 Temperature 98.2 F Pulse Rate 101 H Respiratory Rate 31 H Blood Pressure 96/78 L Pulse Oximetry 99 Intake/Output Intake/Output: Intake & Output 11/07/19 11/08/19 11/09/19 11/10/19 23:59 23:59 23:59 23:59 Intake Total 1343 1783 1790 1011.1 Output Total 347 135 5746 130 Balance 1108 1663 -550 881.1 Meds/Results Medications: Active Medications Generic Name Dose Route Start Last Admin Trade Name Freq PRN Reason Stop Dose Admin Albuterol 2.5 mg 10/29/19 11:48 11/10/19 09:04 Albuterol Sulf Neb 2.5mg/0.5ml INHALATION 2.5 mg Q4HRT PRN Administration Wheezing or high peak pressure Bisacodyl 10 mg 10/14/19 17:03 10/16/19 17:51 Dulcolax Suppository RECTAL 10 mg QAM PRN Administration Constipation Dextrose 12.5 gm 10/31/19 09:03 11/07/19 06:29 Dextrose 50% Syringe IV PUSH 12.5 gm PRN PRN Administration Hypogl
[2019-11-10] MEDS: FAT EMULSIONS IV 20% 250 ML 20.8 ML IVPB (15:23)
[2019-11-10 16:25] LABS: Triglycerides 134 mg/dL (<150)
[2019-11-10 17:06] LABS: Glucose Point of Care 188 (65-105)
[2019-11-10 19:00] LABS: Partial Thromboplastin Time 47.4 SECONDS (22.3-36.8)
[2019-11-10] MEDS: HEPARIN SODIUM 5,000 UNITS/ML VIAL 5000 UNITS IV PUSH (19:21)
[2019-11-10] MEDS: HEPARIN SOD/D5W 100 UNITS/ML 25,000 UNITS/250 ML BAG 9 UNITS IV CONT (20:21)
[2019-11-11] VITALS (43 sets, daily range): BP systolic 79–258; BP diastolic 39–161; PULSE 93–118; RESP 18–99; TEMP 36–37.5; O2SAT 95–100
[2019-11-11] MEDS: metroNIDAZOLE 500 MG/ISO 100ML 500 MG/100 ML BAG 100 MG IVPB ×3 (00:10→12:49)
[2019-11-11 00:13] LABS: Glucose Point of Care 177 (65-105)
[2019-11-11] MEDS: IPRATROPIUM BR 0.02% INH SOLN 0.5 MG/2.5 ML VIAL INHALATION ×4 (02:29→20:09)
[2019-11-11] MEDS: ALBUTEROL SULFATE NEB 2.5 MG/0.5 ML INH INHALATION ×2 (02:29→09:01)
[2019-11-11 02:55] LABS: Hematocrit 25.5 % (42.0-52.0); Mean Corpuscular HGB Conc 31.4 g/dl (32-36); Mean Corpuscular Hemoglobin 33.8 pg (26-34); Mean Corpuscular Volume 107.6 fl (80-100); Mean Platelet Volume 10.4 fl (7.4-10.4); Platelet Count Result 504 k/mm3 (150-375); Red Blood Count 2.37 M/mm3 (4.6-6.20); Red Cell Distribution Width 20.9 % (11.5-14.5)
[2019-11-11 03:10] LABS: Alanine Aminotransferase 15 U/L (4-50); Albumin Level 1.9 g/dL (3.5-5.1); Alkaline Phosphatase 255 U/L (38-126); Anion Gap 8 mmol/L (8-16); Aspartate Amino Transferase 31 U/L (17-59); Bilirubin,Total 0.5 mg/dL (0.2-1.3); Blood Urea Nitrogen 22 mg/dL (9-20); Calcium 7.1 mg/dL (8.4-10.2); Carbon Dioxide 21 mmol/L (22-30); Chloride 100 mmol/L (98-107); Estimated CRCL calculation 23 ml/min; Estimated Glomerular Filt Rate 28; Glucose 217 mg/dL (75-110); Magnesium 1.7 mg/dL (1.6-2.3); Phosphorus 4.5 mg/dL (2.5-4.5); Potassium 3.8 mmol/L (3.4-5.0); Sodium 129 mmol/L (137-145)
[2019-11-11 04:02] LABS: Partial Thromboplastin Time 164.7 SECONDS (22.3-36.8)
[2019-11-11 05:25] LABS: Glucose Point of Care 228 (65-105)
[2019-11-11] MEDS: INSULIN ASPART (*BKC) 100 UNITS/ML SUB-Q (05:25)
[2019-11-11] MEDS: CENTRAL LINE FLUSH 10 ML IV PUSH ×3 (05:26→21:19)
[2019-11-11] MEDS: FLUTICASONE PROPIONATE 0.05% NA SPR 16 GM BTL (*BKC) 2 SPRAY NASAL (09:09)
[2019-11-11] MEDS: NEOMYCIN/POLYMYXIN/BACITRACIN OINTMENT 15 GM TUBE 1 APPLIC TOPICAL (09:09)
[2019-11-11] MEDS: SILVERGEL (ELTA) 45 ML 1 APPLIC TOPICAL (09:10)
--- NOTE | 2019-11-11 11:19 | PCDIET ---
ICU Rounding Note: Patient remains NPO on Clinimix 07/30 E. Recommended increase in rate to 50mL/hr with lipids every 3 days to provide additional protein without excessive fluid. Without lipids, this will provide 612kcal and 60g protein daily. Additional 500kcal provided every 3 days when lipids administered. Patient undergoing hemodialysis at time of rounds. Last recorded weight is 78kg which is stable. Bowel Motility: BM x 3 today. Labs Reviewed: Hgb (8.0), Hct (25.5), Glu (217), BUN (22), Cr (2.3), Na (129), Alb (1.9), Ade Ca (8.78), TG (134) Meds Noted: Fentanyl, Diflucan, Flagyl, Albumin, Albuterol, Novolog, Atrovent, Protonix, Vancomycin Additional Notes: No change in coccyx or left foot wound reported. Will continue to recommend increasing PN as tolerated with regard to fluid volume to support healing. Following daily in ICU rounds. Assessing/reassessing every Saturday/Saturday.
--- NOTE | 2019-11-11 12:25 | WPDINTPN ---
Progress Note: A&P Assessment and Plan (1) Acute respiratory failure: Code(s): J96.00 - Acute respiratory failure, unspecified whether with hypoxia or hypercapnia Status: Acute Assessment and Plan: - patient on mechanical ventilation - patient now status post tracheostomy on 10/30/2019 - patient had a a ultrasound-guided thoracentesis done on 10/26 on right and 150 mL fluid was removed which was negative for any Gram stain or culture. - Continue CMV at this time. - Continue physical and occupational therapy to work with the patient - awaits LTAC placement - will place patient on pressure support ventilation with high pressure support - appreciate pulmonology evaluation and recommendation (2) Severe sepsis: Code(s): A41.9 - Sepsis, unspecified organism; R65.20 - Severe sepsis without septic shock Status: Acute Assessment and Plan: septic shock secondary to fungal peritonitis and PNA . Improving/resolving - OFF LEVOPHED since 2:00 a.m. on 10/16/2019 - peritoneal cultures growing Yeast - CT scan of the abdomen and pelvis on 10/16 showed interval progression of patchy bilateral airspace disease, compatible pneumonia. Bilateral pleural effusions right greater than left moderate ascites which appears loculated the left upper abdomen, cannot exclude peritonitis, abdominal wall thickening suspicious for cystitis. peritoneal dialysis catheter present in the pelvis 11/06/2019: CT chest/abdomen /pelvis showed perforation of the posterior fundus of the stomach with splenic infarct and fluid collection , status post CT-guided placement of a drain with purulent drainage - cultures pending - patient remains on metronidazole, cefepime and fluconazole on 11/06/2019, continues to have leukocytosis - cultures from abscess on the posterior aspect of the stomach growing Enterococcus, patient started on vancomycin 11/08 - infectious disease to follow the patient - 10/19/2019 peritoneal fluid Gram stain , no organism seen - 10/19/2019 peritoneal fluid culture, growing Linda albicans - 10/18/2019 blood cultures negative x2 - 10/21/2019 repeat peritoneal cultures and peritoneal catheter cultures growing Linda albicans (3) Peritonitis: Onset Date: ~10/2019 Code(s): K65.9 - Peritonitis, unspecified Status: Acute Assessment and Plan: Linda peritonitis - status post removal of peritoneal dialysis catheter on 10/21/2019, Catheter and peritoneal fluid sent for culture - SILVA drains x1 draining minimal amount of serosanguineous fluid, surgery following the patient. Dr. Levi wants to remove the drain once output is close to 0 - 2nd SILVA drain was removed - continue IV fluconazole per infectious disease (4) Aspiration pneumonia: Code(s): J69.0 - Pneumonitis due to inhalation of food and vomit Status: Acute Assessment and Plan: completed course of antibiotics (5) Encephalopathy: Code(s): G93.40 - Encephalopathy, unspecified Status: Acute Assessment and Plan: - gradually improving - continue to hold sedation - encephalopathy likely multifactorial related to metabolic /uremic encephalopathy, infectious encephalopathy, medication related - neurology has been consulted and appreciate their evaluation and recommendations - EEG was done on 10/20/2019 and discussed with Neurology, EEG had significant slowing, likely related to severe encephalopathy. No epileptiform discharges were seen - patient did have a CT scan of the brain on 10/18/2019: was negative for any acute intracranial pathology (6) Cardiorespiratory arrest: Code(s): I46.9 - Cardiac arrest, cause unspecified Status: Acute Assessment and Plan: PEA arrest likely due aspiration,ROSC after 1 round of epinephrine - post arrest pt was following commands and so did not require hypothermia protocol - trops elevated to 0.40 likely due to cardiac ar
--- NOTE | 2019-11-11 12:26 | PM.PNNEP ---
Progress Note: A&P Assessment and Plan (1) ESRD (end stage renal disease) on dialysis: Code(s): N18.6 - End stage renal disease; Z99.2 - Dependence on renal dialysis Status: Acute Assessment and Plan: HD today and continue M/W/F schedule for now Blood pressure usually runs low on the treatment started on midodrine to compensate (2) Gastric perforation: Code(s): K25.5 - Chronic or unspecified gastric ulcer with perforation Status: Acute Assessment and Plan: as noted by recent CT imaging complicated by perisplenic abscess s/p drain placement by IR repeat imaging demonstrate gastric leak still present continue current therapy (3) Peritonitis (acute) generalized: Code(s): K65.0 - Generalized (acute) peritonitis Status: Acute Assessment and Plan: cultures growing yeast s/p PD catheter removal and washout completed 2 week course of antifungal therapy (4) Hyponatremia: Onset Date: Unknown Code(s): E87.1 - Hypo-osmolality and hyponatremia Status: Acute Assessment and Plan: stable at this time continue to follow (5) Cardiorespiratory arrest: Code(s): I46.9 - Cardiac arrest, cause unspecified Status: Acute Assessment and Plan: presumably precipitated by aspiration now has a tracheostomy remains on mechanical ventilation (6) Encephalopathy: Code(s): G93.40 - Encephalopathy, unspecified Status: Acute Assessment and Plan: some improvement noted continue supportive care Will continue to follow. Subjective Date/time seen: 11/11/19 12:26 Tolerating dialysis at the time of my visit (seen on HD at ~ 12:00PM); BP is acutally elevated when he usually runs hypotensive with dialysis treatments; no other significant changes noted. Exam Narrative: Exam Narrative: General: WD/WN male in NAD; s/p tracheostomy Heart: irregular rhythm; no rub Lungs: coarse and diminished breath sounds Abdomen: soft, nontender, nondistended, positive bowel sounds Extremities: no cyanosis or clubbing; 1+ edema Skin: warm and intact Objective Data Vital Signs Vital Signs: Vital Signs Temp Pulse Resp BP Pulse Ox 11/11/19 12:16 109 H 162/141 H 11/11/19 12:10 37.1 C 103 H 34 H 162/41 H 98 11/11/19 11:45 117 H 79/40 L 11/11/19 11:30 117 H 106/64 11/11/19 11:00 112 H 177/147 H 11/11/19 10:45 114 H 150/103 H 11/11/19 10:30 112 H 130/72 11/11/19 10:08 114 H 258/155 H 11/11/19 10:02 115 H 174/161 H 11/11/19 10:00 106 H 18 146/73 H 95 11/11/19 09:45 115 H 151/117 H 11/11/19 09:30 118 H 142/120 H 11/11/19 09:21 37.1 C 99 H 99 11/11/19 09:15 100 118/105 H 11/11/19 09:07 100 123/60 11/11/19 09:02 103 H 26 H 11/11/19 09:01 103 H 99 11/11/19 08:55 103 H 26 H 11/11/19 08:20 37.1 C 99 31 H 126/61 99 11/11/19 08:00 36.7 C 103 H 26 H 118/105 H 99 11/11/19 06:00 106 H 26 H 95/77 L 97 11/11/19 04:39 106 H 96 11/11/19 04:00 37.1 C 100 30 H 138/61 98 11/11/19 02:42 99 31 H 11/11/19 02:36 93 95 11/11/19 02:33 103 H 36 H 11/11/19 02:00 106 H 28 H 113/77 100 11/11/19 00:00 37.1 C 95 26 H 134/101 H 99 11/10/19 23:18 96 98 11/10/19 22:00 106 H 24 H 88/48 L 97 11/10/19 20:32 103 H 33 H 11/10/19 20:25 99 100 11/10/19 20:23 102 H 27 H 11/10/19 20:00 36.6 C 103 H 26 H 96/51 L 100 11/10/19 18:00 92 31 H 96/56 L 100 11/10/19 17:35 97 100 11/10/19 16:00 37.1 C 98 24 H 126/55 L 100 11/10/19 15:05 97 23 H 11/10/19 14:55 96 23 H 11/10/19 14:50 96 100 11/10/19 14:00 91 26 H 107/56 L 100 Intake/Output Intake/Output: Intake & Output 11/08/19 11/09/19 11/10/19 11/11/19 23:59 23:59 23:59 23:59 Intake Total 1783 1790 1666.0 993.5 Output Total 120 2340 997 2610 Balance 1663 550
[2019-11-11 12:45] LABS: Glucose Point of Care 152 (65-105)
[2019-11-11 13:12] LABS: Partial Thromboplastin Time 195.5 SECONDS (22.3-36.8)
--- NOTE | 2019-11-11 13:33 | PM.IMPN ---
Progress Note: A&P Assessment and Plan (1) Gastric perforation: Code(s): K25.5 - Chronic or unspecified gastric ulcer with perforation Status: Acute Assessment and Plan: Gastrografin study confirmed the perforation of the fundus of the stomach.. He is not a good candidate for surgery given his multiple comorbidities ( 3 organ systems in failure at this time respiratory, renal and GI. ). It seems that an endoscopic closure might also going to be difficult to obtain. Continue antibiotics, fluconazole and protonix for now. Hospice care might be in this patient best interest however family does not want that yet. (2) Severe sepsis: Code(s): A41.9 - Sepsis, unspecified organism; R65.20 - Severe sepsis without septic shock Status: Acute Assessment and Plan: Likely secondary to peritonitis, his dialysis catheter was removed however now he has a gastric perforation leaking into the peritoneum. Not on vasopressors now. (3) ESRD (end stage renal disease) on dialysis: Code(s): N18.6 - End stage renal disease; Z99.2 - Dependence on renal dialysis Status: Acute Assessment and Plan: cont HD thru [facility] HD cath (4) Ventilator dependence: Code(s): Z99.11 - Dependence on respirator [ventilator] status Status: Acute Assessment and Plan: Pulmonary has been consulted. Subjective Date/time seen: No change on clinical status, family apparently not interested on hospice and keep shaving unrealistic expectations. 11/11/19 13:33 Exam Const: General: no acute distress Other: Chronically ill. Neck: Neck: supple Resp: Auscultation: diminished lung sounds Other: Coarse breath sounds bilaterally with rhonchi and crackles.. Cardio: Rate: regular rate GI: Other: SILVA drain with mild serosanguineous drainage. G tube Hyperactive bowel sounds. Extrem: Other: edema in both lower extremities. Objective Data Vital Signs Vital Signs: Vital Signs - 24 hr 11/10/19 14:00 11/10/19 14:50 11/10/19 14:55 Temperature Pulse Rate 91 96 96 Respiratory Rate 26 H 23 H Blood Pressure 107/56 L Pulse Oximetry 100 100 11/10/19 15:05 11/10/19 16:00 11/10/19 17:35 Temperature 98.8 F Pulse Rate 97 98 97 Respiratory Rate 23 H 24 H Blood Pressure 126/55 L Pulse Oximetry 100 100 11/10/19 18:00 11/10/19 20:00 11/10/19 20:23 Temperature 97.9 F Pulse Rate 92 103 H 102 H Respiratory Rate 31 H 26 H 27 H Blood Pressure 96/56 L 96/51 L Pulse Oximetry 100 100 11/10/19 20:25 11/10/19 20:32 11/10/19 22:00 Temperature Pulse Rate 99 103 H 106 H Respiratory Rate 33 H 24 H Blood Pressure 88/48 L Pulse Oximetry 100 97 11/10/19 23:18 11/11/19 00:00 11/11/19 02:00 Temperature 98.8 F Pulse Rate 96 95 106 H Respiratory Rate 26 H 28 H Blood Pressure 134/101 H 113/77 Pulse Oximetry 98 99 100 11/11/19 02:33 11/11/19 02:36 11/11/19 02:42 Temperature Pulse Rate 103 H 93 99 Respiratory Rate 36 H 31 H Blood Pressure Pulse Oximetry 95 11/11/19 04:00 11/11/19 04:39 11/11/19 06:00 Temperature 98.7 F Pulse Rate 100 106 H 106 H Respiratory Rate 30 H 26 H Blood Pressure 138/61 95/77 L Pulse Oximetry 98 96 97 11/11/19 08:00 11/11/19 08:20 11/11/19 08:55 Temperature 98.1 F 98.7 F Pulse Rate 103 H 99 103 H Respiratory Rate 26 H 31 H 26 H Blood Pressure 118/105 H 126/61 Pulse Oximetry 99 99 11/11/19 09:01 11/11/19 09:02 11/11/19 09:07 Temperature Pulse Rate 103 H 103 H 100 Respiratory Rate 26 H Blood Pressure 123/60 Pulse Oximetry 99 11/11/19 09:15 11/11/19 09:21 11/11/19 09:30 Temperature 98.7 F Pulse Rate 100 118 H Respiratory Rate 99 H Blood Pressure 118/105 H 142/120 H Pulse Oximetry 99 11/11/19 09:45 11/11/19 10:00 11/11/19 10:02 Temperature Pulse Rate 115 H 106 H 115 H Respiratory Rate 18 Blood Pressure 151/117 H 146/73 H 174/161 H Pulse Oximetry 95
--- NOTE | 2019-11-11 14:05 | PM.PNGS ---
Progress Note: A&P Assessment and Plan (1) Gastric perforation: Code(s): K25.5 - Chronic or unspecified gastric ulcer with perforation Status: Acute Assessment and Plan: cont drain, abx, G tube to LIS, abx. Gastrografin study through the gastrostomy tube on 11/09/2019 showed that there is a perforation of the fundus of the stomach which connects to the fluid collection drained on 11/06/2019 in the left upper quadrant of the abdomen. No apparent bleeding since this occurred Even though patient is anticoagulated now for the clot around his dialysis catheter in the right internal jugular area. Options available for treatment of this would be conservative management as we are now continuing with high-dose Protonix, fluid collection drainage and see if healing will occur with conservative management and support with TPN. Another option would be to consider consider endoscopic treatment with possible clip closure and stenting of the defect in the fundus of the stomach from the inside. Gastrology here does not have experience doing this so patient would need to be possibly be transferred where this be considered. A third option would be surgical intervention again to try to mobilize the stomach, identify the perforation site, over-sew or staple this closed, followed by a omental or fatty patch. I doubt that this could be done laparoscopically or robotically in view of the patient's previous peritonitis. It will also be difficult for the patient to survive an open surgery like this since that would mean that I probably would have to remove the G-tube in order to get enough room to work in this difficult left upper quadrant area. He is already working on poor reserves with a low albumin, respiratory and renal failure and therefore will have difficulty healing in view of his continued need for dialysis. Therefore, for today will continue current treatment since he seems at least stable on the ventilator. Will see how using vancomycin drainage and support does overnight. Dr. Lopez had a discussion with the patient's on the morning 11/10/2019. Apparently the patient's daughter also participated in this discussion. During that discussion the above options were presented. The family decided not to pursue any open surgery because they were afraid of the consequences as were we. They also requested that we not try to pursue transfer to an outside facility that could possibly do the endoscopic closure and wanted to continue current treatment to see how this would work. Therefore, Dr. Lopez and I agreed that we would continue current treatment for 1 week. If the drainage from the left upper quadrant drain slows we may consider also adding Carafate through the G-tube 3 times or 4 times a day as long as it does not increase the drainage or seem be coming right out into the abscess cavity from the stomach. This may help or promote healing. Family was happy with this plan and we will readdress this again in 1 week. In general this appears to be the failure of the 3rd organ system with the previous failures of his renal and respiratory systems. Perhaps the best solution for the patient and his family would be to consider hospice and comfort care. (2) Severe sepsis: Code(s): A41.9 - Sepsis, unspecified organism; R65.20 - Severe sepsis without septic shock Status: Acute Assessment and Plan: cont drain, abx (3) ESRD (end stage renal disease) on dialysis: Code(s): N18.6 - End stage renal disease; Z99.2 - Dependence on renal dialysis Status: Acute Assessment and Plan: cont HD thru [facility] HD cath (4) Ventilator dependence: Code(s): Z99.11 - Dependence on respirator [ventilator] status Status: Acute Assessment and Plan: wean as rocio Additional Plan Will plan to follow output of the remaining SILVA drain until he goes to an LTAC. Most likely will leave the this one in until there is
[2019-11-11 14:15] LABS: Vancomycin Random 11.4 ug/mL (10-20)
[2019-11-11 17:21] LABS: Glucose Point of Care 194 (65-105)
--- NOTE | 2019-11-11 17:29 | WPDINFPN2 ---
Progress Note: A&P Assessment and Plan (1) Gastric perforation: Code(s): K25.5 - Chronic or unspecified gastric ulcer with perforation Status: Acute Assessment and Plan: 1. Gastric perforation leading to posterior abscess with Enterocccus 2. Past Linda peritonitis, treated successfully 3. [facility] REC Vanc monotherapy # 1 / 10 days, ask PharmD to dose. Stop other antimicrobials. Very poor prognosis. Dr. eLvi's note reviewed in detail. Subjective Date/time seen: 11/11/19 17:29 Interval history: asked to see again re + culture. He is non verbal Exam Narrative: Exam Narrative: afebrile Const: Other: appears chronically ill Resp: Effort & Inspection: normal respiratory effort Auscultation: clear to auscultation bilaterally and diminished lung sounds Cardio: Rate: regular rate Rhythm: regular rhythm Heart sounds: no murmurs GI: Inspection: distended GI Palp: Yes Firmness to palpation present (GI), Yes Tenderness to palpation present (GI) and No Guarding due to palpation present (GI) Percussion: Yes tympanic to percussion and Yes other Auscultation: abnormal bowel sounds Other: drains in place Objective Data Vital Signs Vital Signs: Vital Signs - 24 hr 11/10/19 17:35 11/10/19 18:00 11/10/19 20:00 Temperature 36.6 C Pulse Rate 97 92 103 H Respiratory Rate 31 H 26 H Blood Pressure 96/56 L 96/51 L Pulse Oximetry 100 100 100 11/10/19 20:23 11/10/19 20:25 11/10/19 20:32 Temperature Pulse Rate 102 H 99 103 H Respiratory Rate 27 H 33 H Blood Pressure Pulse Oximetry 100 11/10/19 22:00 11/10/19 23:18 11/11/19 00:00 Temperature 37.1 C Pulse Rate 106 H 96 95 Respiratory Rate 24 H 26 H Blood Pressure 88/48 L 134/101 H Pulse Oximetry 97 98 99 11/11/19 02:00 11/11/19 02:33 11/11/19 02:36 Temperature Pulse Rate 106 H 103 H 93 Respiratory Rate 28 H 36 H Blood Pressure 113/77 Pulse Oximetry 100 95 11/11/19 02:42 11/11/19 04:00 11/11/19 04:39 Temperature 37.1 C Pulse Rate 99 100 106 H Respiratory Rate 31 H 30 H Blood Pressure 138/61 Pulse Oximetry 98 96 11/11/19 06:00 11/11/19 08:00 11/11/19 08:20 Temperature 36.7 C 37.1 C Pulse Rate 106 H 103 H 99 Respiratory Rate 26 H 26 H 31 H Blood Pressure 95/77 L 118/105 H 126/61 Pulse Oximetry 97 99 99 11/11/19 08:55 11/11/19 09:01 11/11/19 09:02 Temperature Pulse Rate 103 H 103 H 103 H Respiratory Rate 26 H 26 H Blood Pressure Pulse Oximetry 99 11/11/19 09:07 11/11/19 09:15 11/11/19 09:21 Temperature 37.1 C Pulse Rate 100 100 Respiratory Rate 99 H Blood Pressure 123/60 118/105 H Pulse Oximetry 99 11/11/19 09:30 11/11/19 09:45 11/11/19 10:00 Temperature Pulse Rate 118 H 115 H 106 H Respiratory Rate 18 Blood Pressure 142/120 H 151/117 H 146/73 H Pulse Oximetry 95 11/11/19 10:02 11/11/19 10:08 11/11/19 10:30 Temperature Pulse Rate 115 H 114 H 112 H Respiratory Rate Blood Pressure 174/161 H 258/155 H 130/72 Pulse Oximetry 11/11/19 10:45 11/11/19 11:00 11/11/19 11:15 Temperature Pulse Rate 114 H 112 H 100 Respiratory Rate Blood Pressure 150/103 H 177/147 H Pulse Oximetry 99 11/11/19 11:30 11/11/19 11:45 11/11/19 12:00 Temperature 37.5 C Pulse Rate 117 H 117 H 109 H Respiratory Rate 34 H Blood Pressure 106/64 79/40 L 98/56 L Pulse Oximetry 98 11/11/19 12:10 11/11/19 12:16 11/11/19 14:00 Temperature 37.1 C Pulse Rate 103 H 109 H 101 H Respiratory Rate 34 H 25 H Blood Pressure 162/41 H 162/141 H 97/68 L Pulse Oximetry 98 100 11/11/19 14:03 11/11/19 14:06 11/11/19 16:00 Temperature 37.5 C Pulse Rate 101 H 101 H 101 H Respiratory Rate 32 H 26 H Blood Pressure 91/39 L Pulse Oximetry 100 99 Intake/Output Intake/Output: Intake & Output 11/08/19 11/09/19 11/10/19 11/11/19 23:59 23:59 23:59 23:59 Intake Total 1783 1790 1666.0 2741.5 Output Total 120 2340 997 2810 Balance 6963 -272
--- NOTE | 2019-11-11 19:01 | PM.PNPUL ---
Progress Note: A&P Assessment and Plan (1) Ventilator dependence: Code(s): Z99.11 - Dependence on respirator [ventilator] status Status: Acute Assessment and Plan: He is not able to tolerate weaning daily; his baseline respiratory rate is 30s; overall prognosis is poor. (2) Nosocomial pneumonia: Code(s): J18.9 - Pneumonia, unspecified organism; Y95 - Nosocomial condition Status: Acute Assessment and Plan: on Cefepime and Metronidazole as well as fluconazole (3) Pleural effusion on right: Code(s): J90 - Pleural effusion, not elsewhere classified Status: Acute Assessment and Plan: Subjective Date/time seen: 11/11/19 19:01 THis 78 yo man is still on CMV mode of ventilation 30% FiO2, peep 5; he has a trach in situ, dry; No fevers, with ongoing gastric perforation seen on imaging study. He is able to open eyes a little, does not follow commands. Review of Systems Review of Systems: All systems reviewed & are unremarkable except as noted in HPI and below Exam Const: General: comfortable and no acute distress HENMT: Head: normal to inspection Ears: hearing grossly abnormal bilaterally Face and sinus: normal facial exam Mouth: Yes Normal oral and palatal mucosa present Eyes: General: appearance normal, both eyes and all related structures Neck: Neck: supple and no JVD Resp: Auscultation: crackles, rhonchi, wheezes and diminished lung sounds Cardio: Rate: regular rate and tachycardic Rhythm: regular rhythm Heart sounds: no murmurs GI: Inspection: distended Auscultation: normal bowel sounds Skin: General skin exam: normal color and no rashes or lesions noted Extrem: General: normal to inspection Objective Data Vital Signs Vital Signs: Vital Signs - 24 hr 11/10/19 20:00 11/10/19 20:23 11/10/19 20:25 Temperature 36.6 C Pulse Rate 103 H 102 H 99 Respiratory Rate 26 H 27 H Blood Pressure 96/51 L Pulse Oximetry 100 100 11/10/19 20:32 11/10/19 22:00 11/10/19 23:18 Temperature Pulse Rate 103 H 106 H 96 Respiratory Rate 33 H 24 H Blood Pressure 88/48 L Pulse Oximetry 97 98 11/11/19 00:00 11/11/19 02:00 11/11/19 02:33 Temperature 37.1 C Pulse Rate 95 106 H 103 H Respiratory Rate 26 H 28 H 36 H Blood Pressure 134/101 H 113/77 Pulse Oximetry 99 100 11/11/19 02:36 11/11/19 02:42 11/11/19 04:00 Temperature 37.1 C Pulse Rate 93 99 100 Respiratory Rate 31 H 30 H Blood Pressure 138/61 Pulse Oximetry 95 98 11/11/19 04:39 11/11/19 06:00 11/11/19 08:00 Temperature 36.7 C Pulse Rate 106 H 106 H 103 H Respiratory Rate 26 H 26 H Blood Pressure 95/77 L 118/105 H Pulse Oximetry 96 97 99 11/11/19 08:20 11/11/19 08:55 11/11/19 09:01 Temperature 37.1 C Pulse Rate 99 103 H 103 H Respiratory Rate 31 H 26 H Blood Pressure 126/61 Pulse Oximetry 99 99 11/11/19 09:02 11/11/19 09:07 11/11/19 09:15 Temperature Pulse Rate 103 H 100 100 Respiratory Rate 26 H Blood Pressure 123/60 118/105 H Pulse Oximetry 11/11/19 09:21 11/11/19 09:30 11/11/19 09:45 Temperature 37.1 C Pulse Rate 118 H 115 H Respiratory Rate 99 H Blood Pressure 142/120 H 151/117 H Pulse Oximetry 99 11/11/19 10:00 11/11/19 10:02 11/11/19 10:08 Temperature Pulse Rate 106 H 115 H 114 H Respiratory Rate 18 Blood Pressure 146/73 H 174/161 H 258/155 H Pulse Oximetry 95 11/11/19 10:30 11/11/19 10:45 11/11/19 11:00 Temperature Pulse Rate 112 H 114 H 112 H Respiratory Rate Blood Pressure 130/72 150/103 H 177/147 H Pulse Oximetry 11/11/19 11:15 11/11/19 11:30 11/11/19 11:45 Temperature Pulse Rate 100 117 H 117 H Respiratory Rate Blood Pressure 106/64 79/40 L Pulse Oximetry 99
[2019-11-11] MEDS: PANTOPRAZOLE SODIUM IV 40 MG VIAL IV PUSH (21:18)
[2019-11-11 22:39] LABS: Partial Thromboplastin Time 66.6 SECONDS (22.3-36.8)
[2019-11-11] MEDS: HEPARIN SODIUM 5,000 UNITS/ML VIAL 2500 UNITS IV PUSH (23:00)
[2019-11-12] VITALS (28 sets, daily range): BP systolic 92–119; BP diastolic 44–85; PULSE 84–104; RESP 20–33; TEMP 36.8–37.1; O2SAT 96–100
[2019-11-12 00:19] LABS: Glucose Point of Care 259 (65-105)
[2019-11-12] MEDS: INSULIN ASPART (*BKC) 100 UNITS/ML SUB-Q ×5 (00:20→23:12)
[2019-11-12] MEDS: IPRATROPIUM BR 0.02% INH SOLN 0.5 MG/2.5 ML VIAL INHALATION ×4 (02:19→20:04)
[2019-11-12 04:39] LABS: Basophils Absolute Auto 0.2 K/mm3 (0.0-0.1); Basophils Percent Auto 0.8 % (0.2-1.2); Eosinophils Absolute Auto 0.1 K/mm3 (0-0.3); Eosinophils Percent Auto 0.5 % (0-4.4); Hematocrit 24.6 % (42.0-52.0); Hemoglobin 7.7 g/dL (14.0-18.0); Immature Granulocyte Absolute 1.53 K/mm3 (0.00-0.031); Immature Granulocyte Percent A 5.9 % (0-0.5); Lymphocytes Absolute Auto 2.72 K/mm3 (0.9-3.2); Lymphocytes Percent Auto 10.5 % (18.3-44.2); Mean Corpuscular HGB Conc 31.3 g/dl (32-36); Mean Corpuscular Hemoglobin 33.9 pg (26-34); Mean Corpuscular Volume 108.4 fl (80-100); Mean Platelet Volume 10.7 fl (7.4-10.4); Monocytes Absolute Auto 2.3 K/mm3 (0.1-0.6); Monocytes Percent Auto 8.9 % (2.6-8.5); Neutrophils Percent Auto 73.4 % (45.5-73.1); Nucleated Red Blood Cells Perc 0.1 % (0.0-0.2); Platelet Count Result 374 k/mm3 (150-375); Red Blood Count 2.27 M/mm3 (4.6-6.20); Red Cell Distribution Width 21.3 % (11.5-14.5); White Blood Count 25.9 K/mm3 (4.5-10.0)
[2019-11-12 04:54] LABS: Alanine Aminotransferase 14 U/L (4-50); Albumin Level 1.8 g/dL (3.5-5.1); Alkaline Phosphatase 222 U/L (38-126); Anion Gap 7 mmol/L (8-16); Aspartate Amino Transferase 40 U/L (17-59); Bilirubin,Total 0.4 mg/dL (0.2-1.3); Blood Urea Nitrogen 19 mg/dL (9-20); Calcium 7.1 mg/dL (8.4-10.2); Carbon Dioxide 25 mmol/L (22-30); Chloride 100 mmol/L (98-107); Estimated CRCL calculation 27 ml/min; Estimated Glomerular Filt Rate 33; Glucose 276 mg/dL (75-110); Magnesium 1.8 mg/dL (1.6-2.3); Phosphorus 3.5 mg/dL (2.5-4.5); Potassium 3.5 mmol/L (3.4-5.0); Sodium 132 mmol/L (137-145)
[2019-11-12 05:01] LABS: Prealbumin 5.9 mg/dL (17.6-36.0)
[2019-11-12 05:02] LABS: Anisocytosis 1+ (NORMAL); Hypochromasia 1+ (NORMAL); Platelet Estimate Adequate (Adequate)
[2019-11-12] MEDS: CENTRAL LINE FLUSH 10 ML IV PUSH ×3 (06:28→20:01)
[2019-11-12 06:29] LABS: Glucose Point of Care 239 (65-105)
--- NOTE | 2019-11-12 08:50 | PM.PNGS ---
Progress Note: A&P Assessment and Plan (1) Gastric perforation: Code(s): K25.5 - Chronic or unspecified gastric ulcer with perforation Status: Acute Assessment and Plan: cont drain, abx, G tube to LIS. Gastrografin study through the gastrostomy tube on 11/09/2019 showed that there is a perforation of the fundus of the stomach which connects to the fluid collection drained on 11/06/2019 in the left upper quadrant of the abdomen. No apparent bleeding since this occurred Even though patient is anticoagulated now for the clot around his dialysis catheter in the right internal jugular area. Options available for treatment of this would be conservative management as we are now continuing with high-dose Protonix, fluid collection drainage and see if healing will occur with conservative management and support with TPN. Another option would be to consider consider endoscopic treatment with possible clip closure and stenting of the defect in the fundus of the stomach from the inside. Gastrology here does not have experience doing this so patient would need to be possibly be transferred where this be considered. A third option would be surgical intervention again to try to mobilize the stomach, identify the perforation site, over-sew or staple this closed, followed by a omental or fatty patch. I doubt that this could be done laparoscopically or robotically in view of the patient's previous peritonitis. It will also be difficult for the patient to survive an open surgery like this since that would mean that I probably would have to remove the G-tube in order to get enough room to work in this difficult left upper quadrant area. He is already working on poor reserves with a low albumin, respiratory and renal failure and therefore will have difficulty healing in view of his continued need for dialysis. Therefore, for today will continue current treatment since he seems at least stable on the ventilator. Dr. Lopez had a discussion with the patient's on the morning 11/10/2019. Apparently the patient's daughter also participated in this discussion. During that discussion the above options were presented. The family decided not to pursue any open surgery because they were afraid of the consequences as were we. They also requested that we not try to pursue transfer to an outside facility that could possibly do the endoscopic closure and wanted to continue current treatment to see how this would work. Therefore, Dr. Lopez and I agreed that we would continue current treatment for 1 week. If the drainage from the left upper quadrant drain slows we may consider also adding Carafate through the G-tube 3 times or 4 times a day as long as it does not increase the drainage or seem be coming right out into the abscess cavity from the stomach. This may help or promote healing. Family was happy with this plan and we will readdress this again in 1 week. In general this appears to be the failure of the 3rd organ system with the previous failures of his renal and respiratory systems. Perhaps the best solution for the patient and his family would be to consider hospice and comfort care. Review of the drainage from the left upper quadrant drain reveals that this has consistently been about 50-100 cc for each 24 hr peroiod over the last 3 days. I think it is reasonable to do a trial of giving the liquid Carafate and clamping the G-tube for 2 hours after each dose. Will then watch and see if this significantly increases the drainage from the left upper quadrant drain or not. If it does not would continue this to try to promote healing of the known fundic area gastric ulcer. If it significantly increases the drainage probably will have to hold off on doing that anymore. (2) Severe sepsis: Code(s): A41.9 - Sepsis, unspecified organism; R65.20 - Severe sepsis without septic shock Status: Acute Assessment and Plan: cont drain, abx
[2019-11-12] MEDS: INSULIN DETEMIR 100 UNITS/ML SUB-Q ×2 (09:01→21:14)
[2019-11-12] MEDS: FLUTICASONE PROPIONATE 0.05% NA SPR 16 GM BTL (*BKC) 2 SPRAY NASAL (09:01)
[2019-11-12] MEDS: NEOMYCIN/POLYMYXIN/BACITRACIN OINTMENT 15 GM TUBE 1 APPLIC TOPICAL (09:03)
[2019-11-12] MEDS: PANTOPRAZOLE SODIUM IV 40 MG VIAL IV PUSH ×2 (09:03→21:14)
[2019-11-12] MEDS: SILVERGEL (ELTA) 45 ML 1 APPLIC TOPICAL (09:04)
--- NOTE | 2019-11-12 10:48 | PCDIET ---
ICU Rounding Note: Patient continues on parenteral nutrition. MD ordered increase to rate of 70mL/hr Clinimix E 07/30 which provides 1193kcal and 84g protein daily. Patient receiving additional 500kcal via lipids every 3 days. Last recorded weight is 74.7kg which is decreased from last review. Bowel Motility: FMS remains in place for liquid stools. Labs Reviewed: WBC (25.9), Hgb (7.7), Hct (24.6), Glu (239), Cr (2.0), Na (132), Alb (1.8), Prealb (5.9) Meds Noted: Albumin, Protonix, Albuterol, Vancomycin, Fentanyl, Atrovent, Novolog, Levemir Additional Notes: No change in wounds reported. Agree with continued increased in PN as long as patient continues to tolerate volume removal. Following daily in ICU rounds. Assessing/reassessing every Saturday/Saturday.
--- NOTE | 2019-11-12 12:17 | P.PNINT_ITS ---
Progress Note: A&P Assessment and Plan (1) Acute respiratory failure: Code(s): J96.00 - Acute respiratory failure, unspecified whether with hypoxia or hypercapnia Status: Acute Assessment and Plan: - patient on mechanical ventilation - patient now status post tracheostomy on 10/30/2019 - patient had a a ultrasound-guided thoracentesis done on 10/26 on right and 150 mL fluid was removed which was negative for any Gram stain or culture. - Continue CMV at this time. - Continue physical and occupational therapy to work with the patient - will place patient on pressure support ventilation with high pressure support - appreciate pulmonology evaluation and recommendation (2) Severe sepsis: Code(s): A41.9 - Sepsis, unspecified organism; R65.20 - Severe sepsis without septic shock Status: Acute Assessment and Plan: septic shock secondary to fungal peritonitis and PNA . Improving/resolving - OFF LEVOPHED since 2:00 a.m. on 10/16/2019 - peritoneal cultures growing Yeast - CT scan of the abdomen and pelvis on 10/16 showed interval progression of patchy bilateral airspace disease, compatible pneumonia. Bilateral pleural effusions right greater than left moderate ascites which aliya ears loculated the left upper abdomen, cannot exclude peritonitis, abdominal wall thickening suspicious for cystitis. peritoneal dialysis catheter present in the pelvis 11/06/2019: CT chest/abdomen /pelvis showed perforation of the posterior fundus of the stomach with splenic infarct and fluid collection , status post CT-guided placement of a drain with purulent drainage - cultures pending - cultures from abscess on the posterior aspect of the stomach growing Enterococcus, - leukocytosis persists, ID following, continue Vancomycin -Off all antibiotics and antifungal - 10/19/2019 peritoneal fluid Gram stain , no organism seen - 10/19/2019 peritoneal fluid culture, growing Linda albicans - 10/18/2019 blood cultures negative x2 - 10/21/2019 repeat peritoneal cultures and peritoneal catheter cultures growing Linda albicans (3) Peritonitis: Onset Date: ~10/2019 Code(s): K65.9 - Peritonitis, unspecified Status: Acute Assessment and Plan: Linda peritonitis - status post removal of peritoneal dialysis catheter on 10/21/2019, Catheter and peritoneal fluid sent for culture - SILVA drains x1 draining minimal amount of serosanguineous fluid, surgery following the patient. Dr. Levi wants to remove the drain once output is close to 0 - 2nd SILVA drain was removed - abx per infectious disease (4) Aspiration pneumonia: Code(s): J69.0 - Pneumonitis due to inhalation of food and vomit Status: Acute Assessment and Plan: completed course of antibiotics (5) Encephalopathy: Code(s): G93.40 - Encephalopathy, unspecified Status: Acute Assessment and Plan: - gradually improving - continue to hold sedation - encephalopathy likely multifactorial related to metabolic /uremic encephalopathy, infectious encephalopathy, medication related - neurology has been consulted and appreciate their evaluation and recommendations - EEG was done on 10/20/2019 and discussed with Neurology, EEG had significant slowing, likely related to severe encephalopathy. No epileptiform discharges were seen - patient did have a CT scan of the brain on 10/18/2019: was negative for any acute intracranial pathology (6) Cardiorespiratory arrest: Code(s): I46.9 - Cardiac arrest, cause unspecified Status: Acute
[2019-11-12 12:38] LABS: Glucose Point of Care 251 (65-105)
[2019-11-12 13:12] LABS: Partial Thromboplastin Time 66.5 SECONDS (22.3-36.8)
[2019-11-12] MEDS: HEPARIN SODIUM 5,000 UNITS/ML VIAL 2500 UNITS IV PUSH (13:17)
[2019-11-12 14:52] LABS: Triglycerides 58 mg/dL (<150)
[2019-11-12] MEDS: SUCRALFATE SUSP 100 MG/ML 10 ML UDC 1000 MG PO ×3 (15:07→23:12)
[2019-11-12] MEDS: HEPARIN SOD/D5W 100 UNITS/ML 25,000 UNITS/250 ML BAG 6 UNITS IV CONT (15:12)
--- NOTE | 2019-11-12 15:53 | PM.PNNEP ---
Progress Note: A&P Assessment and Plan (1) ESRD (end stage renal disease) on dialysis: Code(s): N18.6 - End stage renal disease; Z99.2 - Dependence on renal dialysis Status: Acute Assessment and Plan: HD tomorrow and continue M/W/F schedule for now Blood pressure usually runs low on the treatment started on midodrine to compensate (2) Gastric perforation: Code(s): K25.5 - Chronic or unspecified gastric ulcer with perforation Status: Acute Assessment and Plan: as noted by recent CT imaging complicated by perisplenic abscess s/p drain placement by IR repeat imaging demonstrate gastric leak still present continue current therapy (3) Peritonitis (acute) generalized: Code(s): K65.0 - Generalized (acute) peritonitis Status: Acute Assessment and Plan: cultures growing yeast s/p PD catheter removal and washout completed 2 week course of antifungal therapy (4) Hyponatremia: Onset Date: Unknown Code(s): E87.1 - Hypo-osmolality and hyponatremia Status: Acute Assessment and Plan: stable at this time continue to follow (5) Cardiorespiratory arrest: Code(s): I46.9 - Cardiac arrest, cause unspecified Status: Acute Assessment and Plan: presumably precipitated by aspiration now has a tracheostomy remains on mechanical ventilation (6) Encephalopathy: Code(s): G93.40 - Encephalopathy, unspecified Status: Acute Assessment and Plan: some improvement noted continue supportive care Will continue to follow. Subjective Date/time seen: 11/12/19 15:53 Tolerated dialysis yesterday without any issues or problems; his relative hypotension makes fluid removal with dialysis somewhat difficult; mentation seems a bit better; remains on mechanical ventilation. Exam Narrative: Exam Narrative: General: WD/WN male in NAD; s/p tracheostomy Heart: irregular rhythm; no rub Lungs: coarse and diminished breath sounds Abdomen: soft, nontender, nondistended, positive bowel sounds Extremities: no cyanosis or clubbing; 1+ edema Skin: warm and intact Objective Data Vital Signs Vital Signs: Vital Signs Temp Pulse Resp BP Pulse Ox 11/12/19 14:24 99 25 H 11/12/19 14:10 100 22 H 11/12/19 14:06 98 99 11/12/19 14:00 102 H 20 103/65 100 11/12/19 12:00 36.8 C 92 27 H 109/44 L 98 11/12/19 10:31 88 96 11/12/19 10:00 95 32 H 92/56 L 97 11/12/19 08:10 93 25 H 11/12/19 08:00 37.0 C 103 H 28 H 106/55 L 98 11/12/19 07:56 97 26 H 11/12/19 07:53 97 99 11/12/19 06:00 88 29 H 113/48 L 96 11/12/19 04:47 91 96 11/12/19 04:00 36.9 C 100 29 H 94/57 L 99 11/12/19 02:31 93 27 H 11/12/19 02:20 101 H 100 11/12/19 02:19 93 27 H 11/12/19 02:00 93 30 H 106/45 L 99 11/12/19 00:00 37.1 C 96 22 H 102/45 L 99 11/11/19 23:10 97 98 11/11/19 22:00 98 28 H 94/45 L 98 11/11/19 20:25 100 31 H 11/11/19 20:15 100 100 11/11/19 20:05 100 31 H 11/11/19 20:00 37.2 C 99 31 H 94/41 L 100 11/11/19 18:00 101 H 24 H 88/46 L 100 11/11/19 17:30 103 H 100 Intake/Output Intake/Output: Intake & Output 11/09/19 11/10/19 11/11/19 11/12/19 23:59 23:59 23:59 23:59 Intake Total 1790 1666.0 2741.5 2005 Output Total 2340 997 2810 108 Balance -550 669.0 -68.5 1897 Meds/Results Medications: Active Medications Generic Name Dose Route Start Last Admin Trade Name Freq PRN Reason Stop Dose Admin Albuterol 2.5 mg 10/29/19 11:48 11/11/19 09:01 Albuterol Sulf Neb 2.5mg/0.5ml INHALATION 2.5 mg Q4HRT PRN Administration Wheezing or high peak pressure Bisacodyl 10 mg 10/14/19 17:03 10/16/19 17:51 Dulcolax Suppository RECTAL 10 mg QAM PRN Administration Constipation Dextrose 12.5 gm 10/31/19 09:03 11/07/19 06:29 Dextrose 50% Syringe IV PUSH 12.
--- NOTE | 2019-11-12 18:12 | PM.IMPN ---
Progress Note: A&P Assessment and Plan (1) Gastric perforation: Code(s): K25.5 - Chronic or unspecified gastric ulcer with perforation Status: Acute Assessment and Plan: Gastrografin study confirmed the perforation of the fundus of the stomach.Continue antibiotics, fluconazole and protonix for now. Pt has a drain insitu (2) Severe sepsis: Code(s): A41.9 - Sepsis, unspecified organism; R65.20 - Severe sepsis without septic shock Status: Acute Assessment and Plan: Likely secondary to peritonitis, his dialysis catheter was removed however now he has a gastric perforation leaking into the peritoneum. See above ID rounding (3) ESRD (end stage renal disease) on dialysis: Code(s): N18.6 - End stage renal disease; Z99.2 - Dependence on renal dialysis Status: Acute Assessment and Plan: cont HD thru [facility] HD cath Nephrology rounding (4) Ventilator dependence: Code(s): Z99.11 - Dependence on respirator [ventilator] status Status: Acute Assessment and Plan: Icu rounding Subjective Date/time seen: 11/12/19 18:12 Interval history: 78-year-old male with history of end-stage renal disease on peritoneal dialysis presented emergency department had a cardiac arrest ROSC after 1 round of epinephrine per protocol ROSC, with shortness of breath and hypoxic patient was intubated currently on vent, patient may have aspirated pneumonia, patient in septic shock and on pressor, patient being treated with Levaquin, vancomycin and Flagyl, discussed with membership advisor prognosis is poor we appreciate membership advisor, patient is seen by Dr. Aguilar nephrology for peritoneal dialysis, [employer] had spoken with patient's , she would like to keep full code and continue to treat the patient. septic shock resolved and patient is off Levophed, septic shock most likely secondary to aspiration pneumonia possibly peritonitis and treated with Flagyl cefepime and ceftazidime intraperitoneal by nephrology, patient is his leukocytosis etiology uncertain seen by Dr. Rowe and membership advisor, stopped all antibiotic and has started the patient vancomycin and aztreonam, meanwhile patient was seen by surgery and peritoneal dialysis catheter was removed and now patient is on hemodialysis, patient intubated having regular dialysis, unable to wean the patient off the ventilator,pt has PEG and Sp trache. From my previous notes. Nephrology, and discussed with membership advisor prognosis is poor now GI abscess more difficult to transfer the patient to LTAC Long history, family reluctant on hospice. Pt has PEG and Trache complicated with drain for perforation of the posterior fundus of the stomach with splenic infarct and fluid collection anddrain placement ID ICU ad nephrology rounding on patient Review of Systems Review of Systems: ROS unobtainable: Yes unobtainable due to medical condition Exam Const: General: no acute distress Other: Chronically ill. Resp: Effort & Inspection: normal respiratory effort Auscultation: clear to auscultation bilaterally and diminished lung sounds Cardio: Rate: regular rate Rhythm: regular rhythm GI: Auscultation: normal bowel sounds Other: SILVA drain with mild serosanguineous drainage. G tube Hyperactive bowel sounds. Skin: General skin exam: normal color Neuro: Other: Trache in place, encephalopathic, not so responsive Extrem: General: normal to inspection Other: edema in both lower extremities. Objective Data Vital Signs Vital Signs: Vital Signs - 24 hr 11/11/19 20:00 11/11/19 20:05 11/11/19 20:15 Temperature 37.2 C Pulse Rate 99 100 100 Respiratory Rate 31 H 31 H Blood Pressure 94/41 L Pulse Oximetry 100 100 11/11/19 20:25 11/11/19 22:00 11/11/19 23:10 Temperature Pulse Rate 100 98 97 Respiratory Rate 31 H 28 H Blood Pressure 94/45 L Pulse Oximetry 98 98 11/12/19 00:00 11/12/19 02:00 11/12/19 02:19 Temperature
[2019-11-12 18:40] LABS: Glucose Point of Care 229 (65-105)
[2019-11-12 18:45] LABS: Partial Thromboplastin Time 98.3 SECONDS (22.3-36.8)
--- NOTE | 2019-11-12 21:08 | PM.PNPUL ---
Progress Note: A&P Assessment and Plan (1) Ventilator dependence: Code(s): Z99.11 - Dependence on respirator [ventilator] status Status: Acute Assessment and Plan: He is not able to tolerate weaning daily; his baseline respiratory rate is 30s; overall prognosis is poor. (2) Nosocomial pneumonia: Code(s): J18.9 - Pneumonia, unspecified organism; Y95 - Nosocomial condition Status: Acute Assessment and Plan: on Cefepime and Metronidazole as well as fluconazole (3) Pleural effusion on right: Code(s): J90 - Pleural effusion, not elsewhere classified Status: Acute Assessment and Plan: Subjective Date/time seen: 11/13/19 17:23 This 78 yo man is seen in follow up for respiratory failure, still on CMV mode of ventilation 30% FiO2, peep 5; he has a trach in situ, dry; No fevers, with ongoing gastric perforation seen on imaging study. He is able to open eyes a little, does not follow commands. Review of Systems Review of Systems: All systems reviewed & are unremarkable except as noted in HPI and below Exam Const: General: comfortable and no acute distress HENMT: Head: normal to inspection Ears: hearing grossly abnormal bilaterally Face and sinus: normal facial exam Mouth: Yes Normal oral and palatal mucosa present Eyes: General: appearance normal, both eyes and all related structures Neck: Neck: supple and no JVD Resp: Auscultation: crackles, rhonchi, wheezes and diminished lung sounds Cardio: Rate: regular rate and tachycardic Rhythm: regular rhythm Heart sounds: no murmurs GI: Inspection: distended Auscultation: normal bowel sounds Skin: General skin exam: normal color and no rashes or lesions noted Extrem: General: normal to inspection Objective Data Vital Signs Vital Signs: Vital Signs - 24 hr 11/11/19 22:00 11/11/19 23:10 11/12/19 00:00 Temperature 37.1 C Pulse Rate 98 97 96 Respiratory Rate 28 H 22 H Blood Pressure 94/45 L 102/45 L Pulse Oximetry 98 98 99 11/12/19 02:00 11/12/19 02:19 11/12/19 02:20 Temperature Pulse Rate 93 93 101 H Respiratory Rate 30 H 27 H Blood Pressure 106/45 L Pulse Oximetry 99 100 11/12/19 02:31 11/12/19 04:00 11/12/19 04:47 Temperature 36.9 C Pulse Rate 93 100 91 Respiratory Rate 27 H 29 H Blood Pressure 94/57 L Pulse Oximetry 99 96 11/12/19 06:00 11/12/19 07:53 11/12/19 07:56 Temperature Pulse Rate 88 97 97 Respiratory Rate 29 H 26 H Blood Pressure 113/48 L Pulse Oximetry 96 99 11/12/19 08:00 11/12/19 08:10 11/12/19 10:00 Temperature 37.0 C Pulse Rate 103 H 93 95 Respiratory Rate 28 H 25 H 32 H Blood Pressure 106/55 L 92/56 L Pulse Oximetry 98 97 11/12/19 10:31 11/12/19 12:00 11/12/19 14:00 Temperature 36.8 C Pulse Rate 88 92 102 H Respiratory Rate 27 H 20 Blood Pressure 109/44 L 103/65 Pulse Oximetry 96 98 100 11/12/19 14:06 11/12/19 14:10 11/12/19 14:24 Temperature Pulse Rate 98 100 99 Respiratory Rate 22 H 25 H Blood Pressure Pulse Oximetry 99 11/12/19 16:00 11/12/19 17:05 11/12/19 18:00 Temperature 36.9 C Pulse Rate 95 97 97 Respiratory Rate 24 H 24 H Blood Pressure 117/76 106/85 Pulse Oximetry 99 100 100 11/12/19 20:00 11/12/19 20:05 11/12/19 20:07 Temperature 36.9 C Pulse Rate 104 H 98 100 Respiratory Rate 25 H 33 H Blood Pressure 97/58 L Pulse Oximetry 100 100 11/12/19 20:18 Temperature Pulse Rate 98 Respiratory Rate 33 H Blood Pressure Pulse Oximetry Intake/Output Intake/Output: Intake & Output 11/09/19 11/10/19 11/11/19 11/12/19 23:59 23:59 23:59 23:59 Intake Total 1790 1666.0 2741.5 2004 Output Total 2340 997 2810 178 Balance -550 669.0 -68.5 1827 Meds/Results Medica
[2019-11-12 21:23] LABS: Glucose Point of Care 240 (65-105)
[2019-11-12 23:18] LABS: Glucose Point of Care 243 (65-105)
[2019-11-13] VITALS (43 sets, daily range): BP systolic 54–146; BP diastolic 37–134; PULSE 66–124; RESP 18–34; TEMP 35.7–37.4; O2SAT 94–100
[2019-11-13 01:38] LABS: Partial Thromboplastin Time 60.4 SECONDS (22.3-36.8)
[2019-11-13] MEDS: HEPARIN SODIUM 5,000 UNITS/ML VIAL 2500 UNITS IV PUSH (01:49)
[2019-11-13] MEDS: IPRATROPIUM BR 0.02% INH SOLN 0.5 MG/2.5 ML VIAL INHALATION ×4 (02:37→20:20)
[2019-11-13] MEDS: CENTRAL LINE FLUSH 10 ML IV PUSH ×2 (04:18→21:50)
[2019-11-13 05:18] LABS: Glucose Point of Care 235 (65-105)
[2019-11-13] MEDS: SUCRALFATE SUSP 100 MG/ML 10 ML UDC 1000 MG PO ×3 (05:18→18:13)
[2019-11-13] MEDS: INSULIN ASPART (*BKC) 100 UNITS/ML SUB-Q ×2 (05:19→18:15)
[2019-11-13 05:37] LABS: Anion Gap 6 mmol/L (8-16); Blood Urea Nitrogen 34 mg/dL (9-20); Carbon Dioxide 25 mmol/L (22-30); Chloride 99 mmol/L (98-107); Estimated CRCL calculation 19 ml/min; Estimated Glomerular Filt Rate 25; Glucose 228 mg/dL (75-110); Phosphorus 4.4 mg/dL (2.5-4.5); Sodium 130 mmol/L (137-145)
[2019-11-13 05:49] LABS: Potassium 3.5 mmol/L (3.4-5.0)
--- NOTE | 2019-11-13 07:53 | PM.PNGS ---
Progress Note: A&P Assessment and Plan (1) Gastric perforation: Code(s): K25.5 - Chronic or unspecified gastric ulcer with perforation Status: Acute Assessment and Plan: Continue no enteral feedings, Protonix, Carafate, and TPN Continue Vancomycin Will plan to repeat a Gastrografin study next week to see if perforation has walled off Remains a poor surgical candidate (2) Acute respiratory failure: Code(s): J96.00 - Acute respiratory failure, unspecified whether with hypoxia or hypercapnia Status: Acute (3) Peritoneal dialysis catheter infection: Code(s): T85.71XA - Infection and inflammatory reaction due to peritoneal dialysis catheter, initial encounter Status: Acute (4) CKD stage 5 due to type 2 diabetes mellitus: Onset Date: Unknown Code(s): E11.22 - Type 2 diabetes mellitus with diabetic chronic kidney disease; N18.5 - Chronic kidney disease, stage 5 Status: Acute Subjective Subjective Date/Time Seen: 11/13/19 07:53 Patient seen and examined. No new events overnight. Review of Systems Review of Systems: ROS unobtainable: Yes unobtainable due to endotracheal tube and unobtainable due to mental status Exam GI: GI Palp: Yes Soft to palpation and Yes Other GI palpation findings present (Patient grimmaces with palpation) Other: Pigtail drain with minimal yellow purulent output Objective Data Vital Signs Vital Signs: Vital Signs - 24 hr 11/12/19 07:56 11/12/19 08:00 11/12/19 08:10 Temperature 37.0 C Pulse Rate 97 103 H 93 Respiratory Rate 26 H 28 H 25 H Blood Pressure 106/55 L Pulse Oximetry 98 11/12/19 10:00 11/12/19 10:31 11/12/19 12:00 Temperature 36.8 C Pulse Rate 95 88 92 Respiratory Rate 32 H 27 H Blood Pressure 92/56 L 109/44 L Pulse Oximetry 97 96 98 11/12/19 14:00 11/12/19 14:06 11/12/19 14:10 Temperature Pulse Rate 102 H 98 100 Respiratory Rate 20 22 H Blood Pressure 103/65 Pulse Oximetry 100 99 11/12/19 14:24 11/12/19 16:00 11/12/19 17:05 Temperature 36.9 C Pulse Rate 99 95 97 Respiratory Rate 25 H 24 H Blood Pressure 117/76 Pulse Oximetry 99 100 08/27/20 18:00 11/12/19 20:00 11/12/19 20:05 Temperature 36.9 C Pulse Rate 97 101 H 98 Respiratory Rate 24 H 25 H 33 H Blood Pressure 106/85 97/58 L Pulse Oximetry 100 100 11/12/19 20:07 11/12/19 20:18 11/12/19 21:51 Temperature Pulse Rate 100 98 84 Respiratory Rate 33 H 25 H Blood Pressure 119/58 L Pulse Oximetry 100 100 11/12/19 23:44 11/13/19 00:00 11/13/19 00:23 Temperature 36.8 C Pulse Rate 101 H 100 108 H Respiratory Rate 25 H Blood Pressure 101/51 L Pulse Oximetry 98 99 11/13/19 01:22 11/13/19 02:30 11/13/19 02:46 Temperature Pulse Rate 101 H 102 H 101 H Respiratory Rate 23 H 34 H 34 H Blood Pressure 100/74 Pulse Oximetry 100 100 11/13/19 04:00 11/13/19 05:30 11/13/19 06:00 Temperature 37.4 C Pulse Rate 99 90 88 Respiratory Rate 23 H 25 H Blood Pressure 105/52 L 115/77 Pulse Oximetry 100 100 100 Intake/Output Intake/Output: Intake & Output 11/10/19 11/11/19 11/12/19 11/13/19 23:59 23:59 23:59 23:59 Intake Total 1666.0 2741.5 2005 Output Total 997 2810 178 200 Balance 669.0 -68.5 1827 -200 Meds/Results Medications: Active Medications Generic Name Dose Route Start Last Admin Trade Name Freq PRN Reason Stop Dose Admin Albuterol 2.5 mg 10/29/19 11:48 11/11/19 09:01 Albuterol Sulf Neb 2.5mg/0.5ml INHALATION 2.5 mg Q4HRT PRN Administration Wheezing or high peak pressure Bisacodyl 10 mg 10/14/19 17:03 10/16/19 17:51 Dulcolax Suppository RECTAL 10 mg QAM PRN Administration Constipation Dextrose 12.5 gm 10/31/19 09:03 11/07/19 06:29 Dextrose 50% Syringe IV PUSH 12.5 gm PRN PRN Administration Hypoglycemia Protocol Epoetin Avni-epbx 20,000 units 11/13/19 19:43 Retacrit IV PUSH 11/13/19 19:44 ONCE ON
[2019-11-13] MEDS: SILVERGEL (ELTA) 45 ML 1 APPLIC TOPICAL (09:48)
[2019-11-13] MEDS: PANTOPRAZOLE SODIUM IV 40 MG VIAL IV PUSH ×2 (09:48→21:50)
[2019-11-13] MEDS: FLUTICASONE PROPIONATE 0.05% NA SPR 16 GM BTL (*BKC) 2 SPRAY NASAL (09:49)
[2019-11-13] MEDS: INSULIN DETEMIR 100 UNITS/ML 10 UNITS SUB-Q ×2 (09:49→21:50)
[2019-11-13 09:52] LABS: Partial Thromboplastin Time 78.5 SECONDS (22.3-36.8)
[2019-11-13 09:55] LABS: Glucose Point of Care 200 (65-105)
[2019-11-13] MEDS: NEOMYCIN/POLYMYXIN/BACITRACIN OINTMENT 15 GM TUBE 1 APPLIC TOPICAL (09:58)
--- NOTE | 2019-11-13 11:17 | PCDIET ---
Nutrition Follow-Up Complete: Nutrition Diagnosis: Inadequate oral intake related to oral intubation as evidenced by NPO status. Nutrition Goal: Patient to meet estimated nutritional needs. Goal in progress. Patient did well with increase in PN - MD ordered additional increase in Clinimix E 5/15 to 80mL/hr this date for 1363kcal and 96g protein. Patient to receive additional 500kcal with lipids every 72 hours. Last recorded weight is 73.9 kg which is decreased from last review, despite +I/O. Will monitor. Patient undergoing dialysis at this time. Bowel Motility: Fecal containment device remains in place for loose stools. Labs Reviewed: Glu (235), BUN (34), Cr (2.5), Na (130), TG (58) Meds Noted: Retacrit, Fentanyl, Novolog, Levemir, Atrovent, Synthroid, Sucralfate, Vancomycin Additional Notes: No change in wounds reported. Noted Levemir was increased. Will continue to monitor with same goal. Nutrition Monitoring and Evaluation: Follow up every Saturday/Saturday. Follow daily in ICU rounds.
--- NOTE | 2019-11-13 12:25 | PM.PNNEP ---
Progress Note: A&P Assessment and Plan (1) ESRD (end stage renal disease) on dialysis: Code(s): N18.6 - End stage renal disease; Z99.2 - Dependence on renal dialysis Status: Acute Assessment and Plan: HD today and continue M/W/F schedule for now Blood pressure usually runs low on the treatment started on midodrine to compensate (2) Gastric perforation: Code(s): K25.5 - Chronic or unspecified gastric ulcer with perforation Status: Acute Assessment and Plan: as noted by recent CT imaging complicated by perisplenic abscess s/p drain placement by IR last imaging demonstrated gastric leak still present continue current therapy (3) Peritonitis (acute) generalized: Code(s): K65.0 - Generalized (acute) peritonitis Status: Acute Assessment and Plan: cultures growing yeast s/p PD catheter removal and washout completed 2 week course of antifungal therapy (4) Hyponatremia: Onset Date: Unknown Code(s): E87.1 - Hypo-osmolality and hyponatremia Status: Acute Assessment and Plan: stable at this time continue to follow (5) Cardiorespiratory arrest: Code(s): I46.9 - Cardiac arrest, cause unspecified Status: Acute Assessment and Plan: presumably precipitated by aspiration now has a tracheostomy remains on mechanical ventilation (6) Encephalopathy: Code(s): G93.40 - Encephalopathy, unspecified Status: Acute Assessment and Plan: some improvement noted continue supportive care Will continue to follow. Subjective Date/time seen: 11/13/19 12:25 Tolerating dialysis at the time of my visit (seen on HD at around 12:10PM); limited fluid removal given relative hypotension; otherwise, no other significant changes since I last saw him; no events overnight. Exam Narrative: Exam Narrative: General: WD/WN male in NAD; s/p tracheostomy Heart: irregular rhythm; no rub Lungs: coarse and diminished breath sounds Abdomen: soft, nontender, nondistended, positive bowel sounds Extremities: no cyanosis or clubbing; 1+ edema Skin: no nodules Objective Data Vital Signs Vital Signs: Vital Signs Temp Pulse Resp BP Pulse Ox 11/13/19 12:15 37.0 C 110 H 26 H 97/54 L 98 11/13/19 12:00 36.5 C 104 H 18 84/62 L 96 11/13/19 11:45 115 H 93/62 L 11/13/19 11:30 114 H 90/55 L 11/13/19 11:17 113 H 98 11/13/19 11:00 113 H 83/50 L 11/13/19 10:45 109 H 99/51 L 11/13/19 10:30 97 106/58 L 11/13/19 10:00 102 H 18 82/62 L 96 11/13/19 09:45 106 H 100/65 11/13/19 09:30 118 H 131/60 11/13/19 09:03 37.0 C 95 11/13/19 09:00 66 143/37 H 11/13/19 08:45 120 H 122/110 H 11/13/19 08:30 108 H 110/81 11/13/19 08:18 86 20 11/13/19 08:15 37.0 C 77 27 H 120/67 97 11/13/19 08:08 102 H 100 11/13/19 08:06 87 24 H 11/13/19 08:00 36.6 C 124 H 26 H 110/81 94 11/13/19 06:00 88 25 H 115/77 100 11/13/19 05:30 90 100 11/13/19 04:00 37.4 C 99 23 H 105/52 L 100 11/13/19 02:46 101 H 34 H 11/13/19 02:30 102 H 34 H 100 11/13/19 01:22 101 H 23 H 100/74 100 11/13/19 00:23 108 H 99 11/13/19 00:00 100 11/12/19 23:44 36.8 C 101 H 25 H 101/51 L 98 11/12/19 21:51 84 25 H 119/58 L 100 11/12/19 20:18 98 33 H 11/12/19 20:07 100 100 11/12/19 20:05 98 33 H 11/12/19 20:00 36.9 C 101 H 25 H 97/58 L 100 11/12/19 18:00 97 24 H 106/85 100 11/12/19 17:05 97 100 11/12/19 16:00 36.9 C 95 24 H 117/76 99 Intake/Output Intake/Output: Intake & Output 11/10/19 11/11/19 11/12/19 11/13/19 23:59 23:59 23:59 23:59 Intake Total 1666.0 2741.5 2004 Output Total 997 2810 178 1975 Balance 669.0 -68.5 1826 -1975 Meds/Results Medications: Active Medications Generic Name Dose Route Start Last Admin Trade Name Guicho
--- NOTE | 2019-11-13 13:17 | WPDINTPN ---
Progress Note: A&P Assessment and Plan (1) Acute respiratory failure: Code(s): J96.00 - Acute respiratory failure, unspecified whether with hypoxia or hypercapnia Status: Acute Assessment and Plan: - patient on mechanical ventilation - patient now status post tracheostomy on 10/30/2019 - patient had a a ultrasound-guided thoracentesis done on 10/26 on right and 150 mL fluid was removed which was negative for any Gram stain or culture. - Continue CMV at this time. - Continue physical and occupational therapy to work with the patient - will place patient on pressure support ventilation with high pressure support - appreciate pulmonology evaluation and recommendation (2) Severe sepsis: Code(s): A41.9 - Sepsis, unspecified organism; R65.20 - Severe sepsis without septic shock Status: Acute Assessment and Plan: On admission: septic shock secondary to fungal peritonitis and PNA . Improving/resolving - OFF LEVOPHED since 2:00 a.m. on 10/16/2019 - peritoneal cultures growing Yeast - CT scan of the abdomen and pelvis on 10/16 showed interval progression of patchy bilateral airspace disease, compatible pneumonia. Bilateral pleural effusions right greater than left moderate ascites which appears loculated the left upper abdomen, cannot exclude peritonitis, abdominal wall thickening suspicious for cystitis. peritoneal dialysis catheter present in the pelvis 11/06/2019: CT chest/abdomen /pelvis showed perforation of the posterior fundus of the stomach with splenic infarct and fluid collection , status post CT-guided placement of a drain with purulent drainage - cultures pending - cultures from abscess on the posterior aspect of the stomach growing Enterococcus, - leukocytosis persists, ID following, continue Vancomycin -Off all antibiotics and antifungal per infectious disease - 10/19/2019 peritoneal fluid Gram stain , no organism seen - 10/19/2019 peritoneal fluid culture, growing Linda albicans - 10/18/2019 blood cultures negative x2 - 10/21/2019 repeat peritoneal cultures and peritoneal catheter cultures growing Linda albicans (3) Peritonitis: Onset Date: ~10/2019 Code(s): K65.9 - Peritonitis, unspecified Status: Acute Assessment and Plan: Linda peritonitis - status post removal of peritoneal dialysis catheter on 10/21/2019, Catheter and peritoneal fluid sent for culture - SILVA drains x1 draining minimal amount of serosanguineous fluid, surgery following the patient. Dr. Levi wants to remove the drain once output is close to 0 - 2nd SILVA drain was removed - abx per infectious disease (4) Aspiration pneumonia: Code(s): J69.0 - Pneumonitis due to inhalation of food and vomit Status: Acute Assessment and Plan: completed course of antibiotics (5) Encephalopathy: Code(s): G93.40 - Encephalopathy, unspecified Status: Acute Assessment and Plan: - gradually improving - continue to hold sedation - encephalopathy likely multifactorial related to metabolic /uremic encephalopathy, infectious encephalopathy, medication related - neurology has been consulted and appreciate their evaluation and recommendations - EEG was done on 10/20/2019 and discussed with Neurology, EEG had significant slowing, likely related to severe encephalopathy. No epileptiform discharges were seen - patient did have a CT scan of the brain on 10/18/2019: was negative for any acute intracranial pathology (6) Cardiorespiratory arrest: Code(s): I46.9 - Cardiac arrest, cause unspecified Status: Acute Assessment and Plan: PEA arrest likely due aspiration,ROSC after 1 round of epinephrine - post arrest pt was following commands and so did not require hypothermia protocol - trops elevated to 0.40 likely due to cardiac arrest and renal failure (7) Colitis: Code(s): K52.9 - Noninfective gastroenteritis an
[2019-11-13 14:00] LABS: Glucose Point of Care 199 (65-105)
--- NOTE | 2019-11-13 14:50 | PM.IMPN ---
Progress Note: A&P Assessment and Plan (1) Gastric perforation: Code(s): K25.5 - Chronic or unspecified gastric ulcer with perforation Status: Acute Assessment and Plan: Gastrografin study confirmed the perforation of the fundus of the stomach.Continue antibiotics, fluconazole and protonix for now. Pt has a drain insitu (2) Severe sepsis: Code(s): A41.9 - Sepsis, unspecified organism; R65.20 - Severe sepsis without septic shock Status: Acute Assessment and Plan: Likely secondary to peritonitis, his dialysis catheter was removed however now he has a gastric perforation leaking into the peritoneum. See above ID rounding (3) ESRD (end stage renal disease) on dialysis: Code(s): N18.6 - End stage renal disease; Z99.2 - Dependence on renal dialysis Status: Acute Assessment and Plan: Nephrology rounding (4) Ventilator dependence: Code(s): Z99.11 - Dependence on respirator [ventilator] status Status: Acute Assessment and Plan: Icu rounding Subjective Date/time seen: 11/13/19 14:50 Interval history: 78-year-old male with history of end-stage renal disease on peritoneal dialysis presented emergency department had a cardiac arrest ROSC after 1 round of epinephrine per protocol ROSC, with shortness of breath and hypoxic patient was intubated currently on vent, patient may have aspirated pneumonia, patient in septic shock and on pressor, patient being treated with Levaquin, vancomycin and Flagyl, discussed with movie theater manager prognosis is poor we appreciate movie theater manager, patient is seen by Dr. Aguilar nephrology for peritoneal dialysis, Thread Cutter had spoken with patient's , she would like to keep full code and continue to treat the patient. septic shock resolved and patient is off Levophed, septic shock most likely secondary to aspiration pneumonia possibly peritonitis and treated with Flagyl cefepime and ceftazidime intraperitoneal by nephrology, patient is his leukocytosis etiology uncertain seen by Dr. Rowe and movie theater manager, stopped all antibiotic and has started the patient vancomycin and aztreonam, meanwhile patient was seen by surgery and peritoneal dialysis catheter was removed and now patient is on hemodialysis, patient intubated having regular dialysis, unable to wean the patient off the ventilator,pt has PEG and Sp trache. From my previous notes. Nephrology, and discussed with movie theater manager prognosis is poor now GI abscess more difficult to transfer the patient to LTAC Long history, family reluctant on hospice. Pt has PEG and Trache complicated with drain for perforation of the posterior fundus of the stomach with splenic infarct and fluid collection anddrain placement ID ICU, surgery and nephrology rounding on patient Review of Systems Review of Systems: ROS unobtainable: Yes unobtainable due to medical condition Exam Const: General: no acute distress Other: Chronically ill. Resp: Effort & Inspection: normal respiratory effort Auscultation: diminished lung sounds Other: bilateral fair air entry with harsh breath Cardio: Rate: regular rate Rhythm: regular rhythm GI: Auscultation: normal bowel sounds Other: -4 rectal tube -1 SILVA drain - 2 G-tube - 3 Another drain for posterior gastric abscess Neuro: Other: Trache in place, encephalopathic, some response Extrem: General: normal to inspection Other: No edema of lower extremities Psych: Other: Objective Data Vital Signs Vital Signs: Vital Signs - 24 hr 11/12/19 16:00 11/12/19 17:05 11/12/19 18:00 Temperature 36.9 C Pulse Rate 95 97 97 Respiratory Rate 24 H 24 H Blood Pressure 117/76 106/85 Pulse Oximetry 99 100 100 11/12/19 20:00 11/12/19 20:05 11/12/19 20:07 Temperature 36.9 C Pulse Rate 101 H 98 100 Respiratory Rate 25 H 33 H Blood Pressure 97/58 L Pulse Oximetry 100 100 11/12/19 20:18 11/12/19 21:51 11/12/19 23:44 Temperature
[2019-11-13 15:24] LABS: Partial Thromboplastin Time 96.7 SECONDS (22.3-36.8)
[2019-11-13 16:13] LABS: Vancomycin Random 13.8 ug/mL (10-20)
--- NOTE | 2019-11-13 17:04 | WPDINFPN2 ---
Progress Note: A&P Additional Plan 1. History of gastric perforation with peritonitis leading to posterior abscess with Enterococcus. Currently on vancomycin day 3 of 10 days therapy. continue current care. 2. History of Linda peritonitis successfully treated with antifungal therapy currently of antifungal therapy. 3. Chronic respiratory failure tracheostomy in place. Subjective Date/time seen: 11/13/19 17:04 Exam HENMT: Head: normal to inspection Neck: Neck: normal visual inspection ( tracheostomy site is clean.) Resp: Effort & Inspection: abnormal respiratory pattern Other: Rhonchi at the bases bilaterally. GI: Inspection: normal to inspection Skin: Other: Bilateral lower extremity symmetric erythema. With minimal warmth. Objective Data Vital Signs Vital Signs: Vital Signs - 24 hr 11/12/19 17:05 11/12/19 18:00 11/12/19 20:00 Temperature 36.9 C Pulse Rate 97 97 101 H Respiratory Rate 24 H 25 H Blood Pressure 106/85 97/58 L Pulse Oximetry 100 100 100 11/12/19 20:05 11/12/19 20:07 11/12/19 20:18 Temperature Pulse Rate 98 100 98 Respiratory Rate 33 H 33 H Blood Pressure Pulse Oximetry 100 11/12/19 21:51 11/12/19 23:44 11/13/19 00:00 Temperature 36.8 C Pulse Rate 84 101 H 100 Respiratory Rate 25 H 25 H Blood Pressure 119/58 L 101/51 L Pulse Oximetry 100 98 11/13/19 00:23 11/13/19 01:22 11/13/19 02:30 Temperature Pulse Rate 108 H 101 H 102 H Respiratory Rate 23 H 34 H Blood Pressure 100/74 Pulse Oximetry 99 100 100 11/13/19 02:46 11/13/19 04:00 11/13/19 05:30 Temperature 37.4 C Pulse Rate 101 H 99 90 Respiratory Rate 34 H 23 H Blood Pressure 105/52 L Pulse Oximetry 100 100 11/13/19 06:00 11/13/19 08:00 11/13/19 08:06 Temperature 36.6 C Pulse Rate 88 124 H 87 Respiratory Rate 25 H 26 H 24 H Blood Pressure 115/77 110/81 Pulse Oximetry 100 94 11/13/19 08:08 11/13/19 08:15 11/13/19 08:18 Temperature 37.0 C Pulse Rate 102 H 77 86 Respiratory Rate 27 H 20 Blood Pressure 120/67 Pulse Oximetry 100 97 11/13/19 08:30 11/13/19 08:45 11/13/19 09:00 Temperature Pulse Rate 108 H 120 H 66 Respiratory Rate Blood Pressure 110/81 122/110 H 143/37 H Pulse Oximetry 11/13/19 09:03 11/13/19 09:30 11/13/19 09:45 Temperature 37.0 C Pulse Rate 118 H 106 H Respiratory Rate Blood Pressure 131/60 100/65 Pulse Oximetry 95 11/13/19 10:00 11/13/19 10:30 11/13/19 10:45 Temperature Pulse Rate 102 H 97 109 H Respiratory Rate 18 Blood Pressure 82/62 L 106/58 L 99/51 L Pulse Oximetry 96 11/13/19 11:00 11/13/19 11:17 11/13/19 11:30 Temperature Pulse Rate 113 H 113 H 114 H Respiratory Rate Blood Pressure 83/50 L 90/55 L Pulse Oximetry 98 11/13/19 11:45 11/13/19 12:00 11/13/19 12:15 Temperature 36.5 C 37.0 C Pulse Rate 115 H 104 H 110 H Respiratory Rate 18 26 H Blood Pressure 93/62 L 84/62 L 97/54 L Pulse Oximetry 96 98 11/13/19 14:00 11/13/19 14:38 11/13/19 14:50 Temperature Pulse Rate 109 H 107 H 114 H Respiratory Rate 28 H 29 H 24 H Blood Pressure 74/62 L Pulse Oximetry 98 98 11/13/19 15:41 11/13/19 16:00 Temperature 35.8 C L Pulse Rate 108 H 109 H Respiratory Rate 31 H 22 H Blood Pressure 110/76 Pulse Oximetry 99 98 Intake/Output Intake/Output: Intake & Output 11/10/19 11/11/19 11/12/19 11/13/19 23:59 23:59 23:59 23:59 Intake Total 1666.0 2741.5 2004 2004 Output Total 997 2810 178 1976 Balance 669.0 -68.5 1827 29 Meds/Results Medications: Active Medications Generic Name Dose Route Start Last Admin Trade Name Freq PRN Reason Stop Dose Admin Albuterol 2.5 mg 10/29/19 11:48 11/11/19 09:01 Albuterol Sulf Neb 2.5mg/0.5ml INHALATION 2.5 mg Q4HRT PRN Administration Wheezing or high peak pressure Bisacodyl 10 mg 10/14/19 17:03 10/16/19 17:51 Dulcolax Suppository RECTAL 10 mg QAM PRN Administration Constipatio
[2019-11-13 18:13] LABS: Glucose Point of Care 276 (65-105)
[2019-11-13 22:12] LABS: Glucose Point of Care 300 (65-105)
[2019-11-14] VITALS (27 sets, daily range): BP systolic 66–89; BP diastolic 23–47; PULSE 86–109; RESP 19–33; TEMP 36.1–36.6; O2SAT 94–100
[2019-11-14 00:48] LABS: Glucose Point of Care 183 (65-105)
[2019-11-14] MEDS: SUCRALFATE SUSP 100 MG/ML 10 ML UDC 1000 MG PO ×4 (00:48→19:46)
[2019-11-14] MEDS: IPRATROPIUM BR 0.02% INH SOLN 0.5 MG/2.5 ML VIAL INHALATION ×4 (02:10→19:53)
[2019-11-14 05:28] LABS: Alveolar/Arterial O2 Gradient 92.2 mmHg; Base Excess ABG 1.9 mEq/l (+/-2.0); Carboxyhemoglobin 0.3 % THb (0-2.0); Fractional Inspired Oxygen 30 %; HCO3 ABG 25.5 mEq/l (22.0-26.0); Methemoglobin ABG 0.3 %THb (0-1.5); Oxygen Content ABG 11.9 %vol (16.0-22.0); Oxygen Saturation ABG 96.5 % (95.0-100.0); Oxyhemoglobin 94.4 % THb (90.0-100.0); PCO2 ABG 35.9 mmHg (35.0-45.0); PO2 ABG 79.5 mmHg (80.0-100.0); PO2 FiO2 Ratio Arterial Blood 2.65 %; Total Hemoglobin 8.9 g/dL (12.0-18.0)
[2019-11-14 05:29] LABS: Device VENTILATOR; Site Drawn RIGHT BRACHIAL
[2019-11-14 05:30] LABS: Arterial Blood Gas PEEP 5 cmH2O; Arterial Blood Gas Tidal Volume 300 ml; Arterial Blood Gas Vent Mode CMV; Arterial Blood Gas Ventilator rate 18 /MIN
[2019-11-14] MEDS: CENTRAL LINE FLUSH 10 ML IV PUSH ×2 (05:46→22:10)
[2019-11-14 07:17] LABS: Glucose Point of Care 52 (65-105)
[2019-11-14] MEDS: GLUCAGON FOR INJ 1 MG VIAL IM ×2 (07:18→07:56)
[2019-11-14] MEDS: ALTEPLASE 2 MG VIAL (CATHFLO) IV PUSH ×2 (07:41→07:56)
[2019-11-14] MEDS: PANTOPRAZOLE SODIUM IV 40 MG VIAL IV PUSH ×2 (08:28→22:10)
[2019-11-14] MEDS: NEOMYCIN/POLYMYXIN/BACITRACIN OINTMENT 15 GM TUBE 1 APPLIC TOPICAL (08:30)
[2019-11-14] MEDS: SILVERGEL (ELTA) 45 ML 1 APPLIC TOPICAL (08:30)
[2019-11-14] MEDS: DEXTROSE 50% 25 GM/50 ML SYRINGE IV PUSH (08:42)
[2019-11-14 09:44] LABS: Hematocrit 22.8 % (42.0-52.0); Hemoglobin 7.1 g/dL (14.0-18.0); Mean Corpuscular HGB Conc 31.1 g/dl (32-36); Mean Corpuscular Hemoglobin 34.1 pg (26-34); Mean Corpuscular Volume 109.6 fl (80-100); Mean Platelet Volume 11.3 fl (7.4-10.4); Platelet Count Result 211 k/mm3 (150-375); Red Blood Count 2.08 M/mm3 (4.6-6.20); Red Cell Distribution Width 21.8 % (11.5-14.5); White Blood Count 26.7 K/mm3 (4.5-10.0)
[2019-11-14 09:54] LABS: Anion Gap 5 mmol/L (8-16); Blood Urea Nitrogen 31 mg/dL (9-20); Calcium 7.1 mg/dL (8.4-10.2); Carbon Dioxide 27 mmol/L (22-30); Chloride 97 mmol/L (98-107); Estimated CRCL calculation 26 ml/min; Estimated Glomerular Filt Rate 37; Glucose 121 mg/dL (75-110); Phosphorus 3.6 mg/dL (2.5-4.5); Potassium 3.5 mmol/L (3.4-5.0); Sodium 129 mmol/L (137-145)
--- NOTE | 2019-11-14 10:05 | PM.PNPUL ---
Progress Note: A&P Assessment and Plan (1) Ventilator dependence: Code(s): Z99.11 - Dependence on respirator [ventilator] status Status: Acute Assessment and Plan: He is now on SBT; TV are small, may not tolerate thompson with low BP; his baseline respiratory rate is 30s; overall prognosis is poor. (2) Nosocomial pneumonia: Code(s): J18.9 - Pneumonia, unspecified organism; Y95 - Nosocomial condition Status: Acute Assessment and Plan: on Cefepime and Metronidazole as well as fluconazole (3) Pleural effusion on right: Code(s): J90 - Pleural effusion, not elsewhere classified Status: Acute Assessment and Plan: Cont to follow Subjective Date/time seen: 11/14/19 10:05 He lost his line overnight, clotted off. The line was treated with alteplase, and now is patent. His blood pressure running lower, 80 systeolic. He had 2 L taken off in dialuysis yesterday. He is on a spontaneous breathing trial, 18/5 and 30% with respiratory rate 25-30 and TV 300, low. Review of Systems Review of Systems: All systems reviewed & are unremarkable except as noted in HPI and below Exam Const: General: comfortable and no acute distress HENMT: Head: normal to inspection Ears: hearing grossly abnormal bilaterally Face and sinus: normal facial exam Mouth: Yes Normal oral and palatal mucosa present Eyes: General: appearance normal, both eyes and all related structures Neck: Neck: supple and no JVD Resp: Auscultation: crackles, rhonchi, wheezes and diminished lung sounds Cardio: Rate: regular rate and tachycardic Rhythm: regular rhythm Heart sounds: no murmurs GI: Inspection: distended Auscultation: normal bowel sounds Skin: General skin exam: normal color and no rashes or lesions noted Extrem: General: normal to inspection Objective Data Vital Signs Vital Signs: Vital Signs - 24 hr 11/13/19 10:30 11/13/19 10:45 11/13/19 11:00 Temperature Pulse Rate 97 109 H 113 H Respiratory Rate Blood Pressure 106/58 L 99/51 L 83/50 L Pulse Oximetry 11/13/19 11:17 11/13/19 11:30 11/13/19 11:45 Temperature Pulse Rate 113 H 114 H 115 H Respiratory Rate Blood Pressure 90/55 L 93/62 L Pulse Oximetry 98 11/13/19 12:00 11/13/19 12:15 11/13/19 14:00 Temperature 36.5 C 37.0 C Pulse Rate 104 H 110 H 109 H Respiratory Rate 18 26 H 28 H Blood Pressure 84/62 L 97/54 L 74/62 L Pulse Oximetry 96 98 98 11/13/19 14:38 11/13/19 14:50 11/13/19 15:41 Temperature Pulse Rate 107 H 114 H 108 H Respiratory Rate 29 H 24 H 31 H Blood Pressure Pulse Oximetry 98 99 11/13/19 16:00 11/13/19 17:01 11/13/19 17:54 Temperature 35.8 C L Pulse Rate 106 H 105 H 104 H Respiratory Rate 22 H 23 H Blood Pressure 110/76 121/85 Pulse Oximetry 98 100 100 11/13/19 20:00 11/13/19 20:20 11/13/19 20:31 Temperature 35.7 C L Pulse Rate 96 105 H 93 Respiratory Rate 30 H 32 H 30 H Blood Pressure 68/53 L Pulse Oximetry 99 100 11/13/19 20:38 11/13/19 22:00 11/13/19 22:15 Temperature Pulse Rate 92 101 H 96 Respiratory Rate 24 H 20 24 H Blood Pressure 81/60 L 146/134 H 54/37 L Pulse Oximetry 100 100 99 11/13/19 23:27 11/14/19 00:00 11/14/19 00:15 Temperature 36.5 C Pulse Rate 94 101 H 96 Respiratory Rate 29 H 29 H Blood Pressure 66/30 L Pulse Oximetry 99 100 100 11/14/19 02:00 11/14/19 02:10 11/14/19 02:21 Temperature Pulse Rate 90 86 88 Respiratory Rate 21 H 29 H 26 H Blood Pressure Pulse Oximetry 100 100 11/14/19 04:00 11/14/19 05:31 11/14/19 06:00 Temperature 36.6 C Pulse Rate 97 99 95 Respiratory Rate 21 H 24 H Blood Pressure 77/47 L Pulse Oximetry 100 100 100 11/14/19 06:47 11/14/19 08:00 11/14/19 08:08 Temperat
[2019-11-14] MEDS: FLUTICASONE PROPIONATE 0.05% NA SPR 16 GM BTL (*BKC) 2 SPRAY NASAL (10:53)
[2019-11-14 11:03] LABS: Partial Thromboplastin Time 54.3 SECONDS (22.3-36.8)
[2019-11-14] MEDS: FAT EMULSIONS IV 20% 250 ML 20.8 ML IVPB (11:09)
[2019-11-14 11:59] LABS: Glucose Point of Care 81 (65-105)
[2019-11-14 11:59] LABS: Glucose Point of Care 56 (65-105)
--- NOTE | 2019-11-14 12:00 | PM.PNGS ---
Progress Note: A&P Assessment and Plan (1) Gastric perforation: Code(s): K25.5 - Chronic or unspecified gastric ulcer with perforation Status: Acute Assessment and Plan: Continue to monitor drain output. Will plan to get Gastrografin UGI to assess for ongoing leak on Saturday. Continue Protonix, Carafate, TPN, Vancomycin. (2) Ventilator dependence: Code(s): Z99.11 - Dependence on respirator [ventilator] status Status: Acute (3) Acute respiratory failure: Code(s): J96.00 - Acute respiratory failure, unspecified whether with hypoxia or hypercapnia Status: Acute (4) Leukocytosis: Onset Date: ~09/2019 Code(s): D72.829 - Elevated white blood cell count, unspecified Status: Acute Subjective Subjective Date/Time Seen: 11/14/19 12:00 Seen and examined. No significant change in drain outputs. Review of Systems Review of Systems: ROS unobtainable: Yes unobtainable due to endotracheal tube and unobtainable due to mental status Exam GI: Inspection: non-distended GI Palp: Yes Soft to palpation and No Guarding due to palpation present (GI) Other: Pigtail drain with minimal serous, slightly purulent output Objective Data Vital Signs Vital Signs: Vital Signs - 24 hr 11/13/19 12:15 11/13/19 14:00 11/13/19 14:38 Temperature 37.0 C Pulse Rate 110 H 109 H 107 H Respiratory Rate 26 H 28 H 29 H Blood Pressure 97/54 L 74/62 L Pulse Oximetry 98 98 98 11/13/19 14:50 11/13/19 15:41 11/13/19 16:00 Temperature 35.8 C L Pulse Rate 114 H 108 H 106 H Respiratory Rate 24 H 31 H 22 H Blood Pressure 110/76 Pulse Oximetry 99 98 11/13/19 17:01 11/13/19 17:54 11/13/19 20:00 Temperature 35.7 C L Pulse Rate 105 H 104 H 96 Respiratory Rate 23 H 30 H Blood Pressure 121/85 68/53 L Pulse Oximetry 100 100 99 11/13/19 20:20 11/13/19 20:31 11/13/19 20:38 Temperature Pulse Rate 105 H 93 92 Respiratory Rate 32 H 30 H 24 H Blood Pressure 81/60 L Pulse Oximetry 100 100 11/13/19 22:00 11/13/19 22:15 11/13/19 23:27 Temperature Pulse Rate 101 H 96 94 Respiratory Rate 20 24 H Blood Pressure 146/134 H 54/37 L Pulse Oximetry 100 99 99 11/14/19 00:00 11/14/19 00:15 11/14/19 02:00 Temperature 36.5 C Pulse Rate 101 H 96 90 Respiratory Rate 29 H 29 H 21 H Blood Pressure 66/30 L Pulse Oximetry 100 100 100 11/14/19 02:10 11/14/19 02:21 11/14/19 04:00 Temperature 36.6 C Pulse Rate 86 88 97 Respiratory Rate 29 H 26 H 21 H Blood Pressure 77/47 L Pulse Oximetry 100 100 11/14/19 05:31 11/14/19 06:00 11/14/19 06:47 Temperature Pulse Rate 99 95 Respiratory Rate 24 H Blood Pressure 70/38 L Pulse Oximetry 100 100 11/14/19 08:00 11/14/19 08:08 11/14/19 08:09 Temperature 36.3 C L Pulse Rate 108 H 101 H 99 Respiratory Rate 24 H 21 H Blood Pressure 76/42 L Pulse Oximetry 99 100 11/14/19 08:17 11/14/19 10:00 Temperature Pulse Rate 97 108 H Respiratory Rate 27 H 26 H Blood Pressure 89/40 L Pulse Oximetry 99 Intake/Output Intake/Output: Intake & Output 11/11/19 11/12/19 11/13/19 11/14/19 23:59 23:59 23:59 23:59 Intake Total 2741.5 2004 2004 60 Output Total 2810 2015 70 Balance -68.5 1827 -11 -10 Meds/Results Medications: Active Medications Generic Name Dose Route Start Last Admin Trade Name Freq PRN Reason Stop Dose Admin Albuterol 2.5 mg 10/29/19 11:48 11/11/19 09:01 Albuterol Sulf Neb 2.5mg/0.5ml INHALATION 2.5 mg Q4HRT PRN Administration Wheezing or high peak pressure Alteplase, Recombinant 2 mg 11/14/19 07:02 11/14/19 07:56 Cathflo Activase IV PUSH 2 mg ONCE PRN Administration Line Occlusion Bisacodyl 10 mg 10/14/19 17:03 10/16/19 17:51 Dulcolax Suppository RECTAL 10 mg QAM PRN Administration Constipation Dextrose 12.5 gm 10/31/19 09:03 11/14/19 08:42 Dextrose 50% Syringe IV PUSH 12.5 gm PRN PRN Administration
[2019-11-14 12:17] LABS: Glucose Point of Care 158 (65-105)
--- NOTE | 2019-11-14 12:17 | P.PNINT_ITS ---
Progress Note: A&P Assessment and Plan (1) Acute respiratory failure: Code(s): J96.00 - Acute respiratory failure, unspecified whether with hypoxia or hypercapnia Status: Acute Assessment and Plan: - patient on mechanical ventilation - patient now status post tracheostomy on 10/30/2019 - patient had a a ultrasound-guided thoracentesis done on 10/26 on right and 150 mL fluid was removed which was negative for any Gram stain or culture. - Continue CMV at this time. - Continue physical and occupational therapy to work with the patient - place patient on pressure support 02/08, will titrate pressure support gradually - appreciate pulmonology evaluation and recommendation (2) Severe sepsis: Code(s): A41.9 - Sepsis, unspecified organism; R65.20 - Severe sepsis without septic shock Status: Acute Assessment and Plan: On admission: septic shock secondary to fungal peritonitis and PNA . Improving/resolving - OFF LEVOPHED since 2:00 a.m. on 10/16/2019 - peritoneal cultures growing Yeast - CT scan of the abdomen and pelvis on 10/16 showed interval progression of patchy bilateral airspace disease, compatible pneumonia. Bilateral pleural effusions right greater than left moderate ascites which appears loculated the left upper abdomen, cannot exclude peritonitis, abdominal wall thickening suspicious for cystitis. peritoneal dialysis catheter present in the pelvis 11/06/2019: CT chest/abdomen /pelvis showed perforation of the posterior fundus of the stomach with splenic infarct and fluid collection , status post CT-guided placement of a drain with purulent drainage - cultures pending - cultures from abscess on the posterior aspect of the stomach growing Enterococcus, - leukocytosis persists, ID following, continue Vancomycin -Off all antibiotics and antifungal per infectious disease - 10/19/2019 peritoneal fluid Gram stain , no organism seen - 10/19/2019 peritoneal fluid culture, growing Linda albicans - 10/18/2019 blood cultures negative x2 - 10/21/2019 repeat peritoneal cultures and peritoneal catheter cultures growing Linda albicans (3) Peritonitis: Onset Date: ~10/2019 Code(s): K65.9 - Peritonitis, unspecified Status: Acute Assessment and Plan: Linda peritonitis - status post removal of peritoneal dialysis catheter on 10/21/2019, Catheter and peritoneal fluid sent for culture - SILVA drains x1 draining minimal amount of serosanguineous fluid, surgery following the patient. Dr. Levi wants to remove the drain once output is close to 0 - 2nd SILVA drain was removed - abx per infectious disease (4) Aspiration pneumonia: Code(s): J69.0 - Pneumonitis due to inhalation of food and vomit Status: Acute Assessment and Plan: completed course of antibiotics (5) Encephalopathy: Code(s): G93.40 - Encephalopathy, unspecified Status: Acute Assessment and Plan: - gradually improving - continue to hold sedation - encephalopathy likely multifactorial related to metabolic /uremic encephalopathy, infectious encephalopathy, medication related - neurology has been consulted and appreciate their evaluation and recommendations - EEG was done on 10/20/2019 and discussed with Neurology, EEG had significant slowing, likely related to severe encephalopathy. No epileptiform discharges were seen - patient did have a CT scan of the brain on 10/18/2019: was negative for any acute intracranial pathology (6) Cardiorespiratory arrest: Code(s): I46.9 - Cardiac arrest, cause u
--- NOTE | 2019-11-14 14:51 | PM.PNNEP ---
Progress Note: A&P Assessment and Plan (1) ESRD (end stage renal disease) on dialysis: Code(s): N18.6 - End stage renal disease; Z99.2 - Dependence on renal dialysis Status: Acute Assessment and Plan: HD today and continue M/W/F schedule for now blood pressure usually runs low on the treatment - reattempt trial of midodrine(?) - although now, hypotensive in general (2) Gastric perforation: Code(s): K25.5 - Chronic or unspecified gastric ulcer with perforation Status: Acute Assessment and Plan: as noted by recent CT imaging complicated by perisplenic abscess s/p drain placement by IR last imaging demonstrated gastric leak still present continue current therapy (3) Peritonitis (acute) generalized: Code(s): K65.0 - Generalized (acute) peritonitis Status: Acute Assessment and Plan: PD fluid cultures growing yeast s/p PD catheter removal and washout completed 2 week course of antifungal therapy (4) Hyponatremia: Onset Date: Unknown Code(s): E87.1 - Hypo-osmolality and hyponatremia Status: Acute Assessment and Plan: stable at this time continue to follow (5) Cardiorespiratory arrest: Code(s): I46.9 - Cardiac arrest, cause unspecified Status: Acute Assessment and Plan: presumably precipitated by aspiration now has a tracheostomy remains on mechanical ventilation (6) Encephalopathy: Code(s): G93.40 - Encephalopathy, unspecified Status: Acute Assessment and Plan: some improvement noted continue supportive care Will continue to follow. Subjective Date/time seen: 11/14/19 14:51 No real significant change -- more hypotensive in the last 24 hours along with rising WBC concerning; still with significant drainage from abdominal drain; tolerated dialysis yesterday but fluid removal once again limited by hemodynamics. Exam Narrative: Exam Narrative: General: WD/WN male in NAD; s/p tracheostomy Heart: irregular rhythm; no rub Lungs: coarse and diminished breath sounds Abdomen: soft, nontender, nondistended, positive bowel sounds Extremities: no cyanosis or clubbing; 1+ edema Skin: warm and dry Objective Data Vital Signs Vital Signs: Vital Signs Temp Pulse Resp BP Pulse Ox 11/14/19 14:00 99 33 H 80/25 L 100 11/14/19 13:53 106 H 25 H 11/14/19 12:00 36.1 C L 105 H 19 86/23 L 94 11/14/19 10:00 108 H 26 H 89/40 L 99 11/14/19 08:17 97 27 H 11/14/19 08:09 99 100 11/14/19 08:08 101 H 21 H 11/14/19 08:00 36.3 C L 108 H 24 H 76/42 L 99 11/14/19 06:47 70/38 L 11/14/19 06:00 95 24 H 100 11/14/19 05:31 99 100 11/14/19 04:00 36.6 C 97 21 H 77/47 L 100 11/14/19 02:21 88 26 H 11/14/19 02:10 86 29 H 100 11/14/19 02:00 90 21 H 100 11/14/19 00:15 36.5 C 96 29 H 66/30 L 100 11/14/19 00:00 101 H 29 H 100 11/13/19 23:27 94 99 11/13/19 22:15 96 24 H 54/37 L 99 11/13/19 22:00 101 H 20 146/134 H 100 11/13/19 20:38 92 24 H 81/60 L 100 11/13/19 20:31 93 30 H 11/13/19 20:20 105 H 32 H 100 11/13/19 20:00 35.7 C L 96 30 H 68/53 L 99 11/13/19 17:54 104 H 23 H 121/85 100 11/13/19 17:01 105 H 100 11/13/19 16:00 35.8 C L 106 H 22 H 110/76 98 11/13/19 15:41 108 H 31 H 99 Intake/Output Intake/Output: Intake & Output 11/11/19 11/12/19 11/13/19 11/14/19 23:59 23:59 23:59 23:59 Intake Total 2741.5 2004 2004 60 Output Total 2810 178 2015 70 Balance -68.5 1827 -11 -10 Meds/Results Medications: Active Medications Generic Name Dose Route Start Last Admin Trade Name Freq PRN Reason Stop Dose Admin Albuterol 2.5 mg 10/29/19 11:48 11/11/19 09:01 Albuterol Sulf Neb 2.5mg/0.5ml INHALATION 2.5 mg Q4HRT PRN Administration Wheezing or high peak pressure Alteplase, Recombinant 2 mg 11/14/19 07:02
[2019-11-14] MEDS: HEPARIN SOD/D5W 100 UNITS/ML 25,000 UNITS/250 ML BAG 7 UNITS IV CONT (15:48)
--- NOTE | 2019-11-14 17:42 | PM.IMPN ---
Progress Note: A&P Assessment and Plan (1) Gastric perforation: Code(s): K25.5 - Chronic or unspecified gastric ulcer with perforation Status: Acute Assessment and Plan: Gastrografin study confirmed the perforation of the fundus of the stomach.Continue antibiotics, fluconazole and protonix for now. Pt has a drain insitu 11/14/19 17:42 Interval history: 78-year-old male with history of end-stage renal disease on peritoneal dialysis presented emergency department had a cardiac arrest ROSC after 1 round of epinephrine per protocol ROSC, with shortness of breath and hypoxic patient was intubated currently on vent, patient may have aspirated pneumonia, patient in septic shock and on pressor, patient being treated with Levaquin, vancomycin and Flagyl, discussed with travelers' aid worker prognosis is poor we appreciate travelers' aid worker, patient is seen by Dr. Aguilar nephrology for peritoneal dialysis, Associate Professor Of [employer] had spoken with patient's , she would like to keep full code and continue to treat the patient. septic shock resolved and patient is off Levophed, septic shock most likely secondary to aspiration pneumonia possibly peritonitis and treated with Flagyl cefepime and ceftazidime intraperitoneal by nephrology, patient is his leukocytosis etiology uncertain seen by Dr. Rowe and travelers' aid worker, stopped all antibiotic and has started the patient vancomycin and aztreonam, meanwhile patient was seen by surgery and peritoneal dialysis catheter was removed and now patient is on hemodialysis, patient intubated having regular dialysis, unable to wean the patient off the ventilator,pt has PEG and Sp trache. From my previous notes. Nephrology, and discussed with travelers' aid worker prognosis is poor now GI abscess more difficult to transfer the patient to LTAC Long history, family reluctant on hospice. Pt has PEG and Trache complicated with drain for perforation of the posterior fundus of the stomach with splenic infarct and fluid collection anddrain placement ID ICU, surgery and nephrology rounding on patient there are no new issues will continue follow patient (2) Severe sepsis: Code(s): A41.9 - Sepsis, unspecified organism; R65.20 - Severe sepsis without septic shock Status: Acute Assessment and Plan: Likely secondary to peritonitis, his dialysis catheter was removed however now he has a gastric perforation leaking into the peritoneum. See above ID rounding (3) ESRD (end stage renal disease) on dialysis: Code(s): N18.6 - End stage renal disease; Z99.2 - Dependence on renal dialysis Status: Acute Assessment and Plan: Nephrology rounding (4) Ventilator dependence: Code(s): Z99.11 - Dependence on respirator [ventilator] status Status: Acute Assessment and Plan: Icu rounding Subjective Date/time seen: 11/14/19 17:42 Interval history: 78-year-old male with history of end-stage renal disease on peritoneal dialysis presented emergency department had a cardiac arrest ROSC after 1 round of epinephrine per protocol ROSC, with shortness of breath and hypoxic patient was intubated currently on vent, patient may have aspirated pneumonia, patient in septic shock and on pressor, patient being treated with Levaquin, vancomycin and Flagyl, discussed with travelers' aid worker prognosis is poor we appreciate travelers' aid worker, patient is seen by Dr. Aguilar nephrology for peritoneal dialysis, Associate Professor Of [employer] had spoken with patient's , she would like to keep full code and continue to treat the patient. septic shock resolved and patient is off Levophed, septic shock most likely secondary to aspiration pneumonia possibly peritonitis and treated with Flagyl cefepime and ceftazidime intraperitoneal by nephrology, patient is his leukocytosis etiology uncertain seen by Dr. Rowe and travelers' aid worker, stopped all antibiotic and has started the patient vancomycin and aztreonam, meanwhile patient was seen by surgery and perito
[2019-11-14 17:50] LABS: Glucose Point of Care 297 (65-105)
[2019-11-14] MEDS: INSULIN ASPART (*BKC) 100 UNITS/ML SUB-Q (18:11)
[2019-11-14] MEDS: ALBUTEROL SULFATE NEB 2.5 MG/0.5 ML INH INHALATION (19:53)
[2019-11-14] MEDS: INSULIN DETEMIR 100 UNITS/ML 10 UNITS SUB-Q (22:09)
[2019-11-15] VITALS (30 sets, daily range): BP systolic 87–150; BP diastolic 26–94; PULSE 89–119; RESP 17–33; TEMP 36.2–37; O2SAT 97–100
[2019-11-15] MEDS: IPRATROPIUM BR 0.02% INH SOLN 0.5 MG/2.5 ML VIAL INHALATION ×4 (01:41→20:00)
[2019-11-15 04:14] LABS: Alveolar/Arterial O2 Gradient 78.6 mmHg; Base Excess ABG -2.4 mEq/l (+/-2.0); Carboxyhemoglobin 0.3 % THb (0-2.0); Fractional Inspired Oxygen 30 %; HCO3 ABG 20.5 mEq/l (22.0-26.0); Methemoglobin ABG 0.3 %THb (0-1.5); Oxygen Content ABG 13.8 %vol (16.0-22.0); Oxyhemoglobin 96.3 % THb (90.0-100.0); PCO2 ABG 28.9 mmHg (35.0-45.0); PO2 ABG 101.3 mmHg (80.0-100.0); PO2 FiO2 Ratio Arterial Blood 3.38 %; Reduced Hemoglobin 3.1 %THb (0-5.0); Site Drawn RIGHT BRACHIAL; Total Hemoglobin 10.1 g/dL (12.0-18.0); pH ABG 7.468 (7.350-7.450)
[2019-11-15 04:15] LABS: Arterial Blood Gas PEEP 5 cmH2O; Arterial Blood Gas Tidal Volume 300 ml; Arterial Blood Gas Vent Mode CMV; Arterial Blood Gas Ventilator rate 18 /MIN; Device VENTILATOR
[2019-11-15] MEDS: SUCRALFATE SUSP 100 MG/ML 10 ML UDC 1000 MG PO ×5 (04:33→23:43)
[2019-11-15 05:21] LABS: Mean Corpuscular HGB Conc 32.1 g/dl (32-36); Mean Corpuscular Hemoglobin 34.9 pg (26-34); Mean Corpuscular Volume 108.9 fl (80-100); Mean Platelet Volume 11.9 fl (7.4-10.4); Platelet Count Result 210 k/mm3 (150-375); Red Blood Count 1.92 M/mm3 (4.6-6.20); Red Cell Distribution Width 21.7 % (11.5-14.5); White Blood Count 17.1 K/mm3 (4.5-10.0)
[2019-11-15 05:36] LABS: Partial Thromboplastin Time 88.4 SECONDS (22.3-36.8)
[2019-11-15 05:37] LABS: Triglycerides 142 mg/dL (<150)
[2019-11-15 06:08] LABS: Hematocrit 20.9 % (42.0-52.0); Hemoglobin 6.7 g/dL (14.0-18.0)
[2019-11-15 06:26] LABS: Glucose Point of Care 416 (65-105)
[2019-11-15] MEDS: CENTRAL LINE FLUSH 10 ML IV PUSH ×2 (06:27→20:18)
[2019-11-15] MEDS: INSULIN ASPART (*BKC) 100 UNITS/ML SUB-Q ×4 (06:27→23:44)
[2019-11-15 06:32] LABS: Anion Gap 5 mmol/L (8-16); Blood Urea Nitrogen 45 mg/dL (9-20); Calcium 6.9 mg/dL (8.4-10.2); Carbon Dioxide 25 mmol/L (22-30); Chloride 95 mmol/L (98-107); Estimated CRCL calculation 21 ml/min; Estimated Glomerular Filt Rate 28; Glucose 374 mg/dL (75-110); Potassium 3.8 mmol/L (3.4-5.0); Sodium 125 mmol/L (137-145)
[2019-11-15 07:47] LABS: Hematocrit 21.4 % (42.0-52.0); Mean Corpuscular HGB Conc 31.3 g/dl (32-36); Mean Corpuscular Volume 108.6 fl (80-100); Mean Platelet Volume 11.2 fl (7.4-10.4); Platelet Count Result 210 k/mm3 (150-375); Red Blood Count 1.97 M/mm3 (4.6-6.20); Red Cell Distribution Width 21.5 % (11.5-14.5); White Blood Count 15.8 K/mm3 (4.5-10.0)
[2019-11-15 07:48] LABS: Hemoglobin 6.7 g/dL (14.0-18.0)
[2019-11-15] MEDS: INSULIN DETEMIR 100 UNITS/ML 15 UNITS SUB-Q ×2 (08:12→20:17)
[2019-11-15] MEDS: PANTOPRAZOLE SODIUM IV 40 MG VIAL IV PUSH ×2 (08:14→20:17)
[2019-11-15] MEDS: FLUTICASONE PROPIONATE 0.05% NA SPR 16 GM BTL (*BKC) 2 SPRAY NASAL (08:14)
[2019-11-15] MEDS: NEOMYCIN/POLYMYXIN/BACITRACIN OINTMENT 15 GM TUBE 1 APPLIC TOPICAL (08:14)
[2019-11-15] MEDS: SILVERGEL (ELTA) 45 ML 1 APPLIC TOPICAL (08:15)
--- NOTE | 2019-11-15 09:33 | WPDINTPN ---
Progress Note: A&P Assessment and Plan (1) Acute respiratory failure: Code(s): J96.00 - Acute respiratory failure, unspecified whether with hypoxia or hypercapnia Status: Acute Assessment and Plan: - patient on mechanical ventilation - patient now status post tracheostomy on 10/30/2019 - patient had a a ultrasound-guided thoracentesis done on 10/26 on right and 150 mL fluid was removed which was negative for any Gram stain or culture. - Continue CMV at this time. - Continue physical and occupational therapy to work with the patient - patient tolerated pressure pressure support ventilation / and tolerated for 4 hours on 11/13 - placed patient on ASV this morning - appreciate pulmonology evaluation and recommendation (2) Severe sepsis: Code(s): A41.9 - Sepsis, unspecified organism; R65.20 - Severe sepsis without septic shock Status: Acute Assessment and Plan: RESOLVED - status post successful treatment of Linda peritonitis with anti fungal therapy 11/06/2019: CT chest/abdomen /pelvis showed perforation of the posterior fundus of the stomach with splenic infarct and fluid collection , status post CT-guided placement of a drain with purulent drainage - cultures from abscess on the posterior aspect of the stomach growing Enterococcus, - leukocytosis persists, ID following, continue Vancomycin #/ (3) Peritonitis: Onset Date: ~10/2019 Code(s): K65.9 - Peritonitis, unspecified Status: Acute Assessment and Plan: status post successful treatment of Linda peritonitis - status post removal of peritoneal dialysis catheter on 10/21/2019, Catheter and peritoneal fluid sent for culture - SILVA drains x1 draining minimal amount of serosanguineous fluid, surgery following the patient. (4) Aspiration pneumonia: Code(s): J69.0 - Pneumonitis due to inhalation of food and vomit Status: Acute Assessment and Plan: completed course of antibiotics (5) Encephalopathy: Code(s): G93.40 - Encephalopathy, unspecified Status: Acute Assessment and Plan: - was improving, normal patient only opens his eyes intermittently but does not follow simple commands - dropped his hemoglobin was no obvious bleed, patient on heparin infusion, will obtain CT scan of the brain - patient is off all sedation - encephalopathy likely multifactorial related to metabolic /uremic encephalopathy, infectious encephalopathy, medication related - EEG was done on 10/20/2019 and discussed with Neurology, EEG had significant slowing, likely related to severe encephalopathy. No epileptiform discharges were seen - patient did have a CT scan of the brain on 10/18/2019: was negative for any acute intracranial pathology (6) Cardiorespiratory arrest: Code(s): I46.9 - Cardiac arrest, cause unspecified Status: Acute Assessment and Plan: PEA arrest on 10/13/2019 likely due to aspiration, ROSC after 1 round of epinephrine - post arrest pt was following commands and so did not require hypothermia protocol (7) Colitis: Code(s): K52.9 - Noninfective gastroenteritis and colitis, unspecified Status: Acute Assessment and Plan: RESOLVED (8) ESRD (end stage renal disease) on dialysis: Code(s): N18.6 - End stage renal disease; Z99.2 - Dependence on renal dialysis Status: Acute Assessment and Plan: patient with end-stage renal disease on peritoneal dialysis, FUNGAL PERITONITIS - removal of peritoneal dialysis catheter and insertion of right IJ tunnel dialysis catheter was done on 10/21/2019. - Patient started on hemodialysis on 10/21/2019, - Further dialysis per Nephrology (9) DVT prophylaxis: Code(s): Z29.9 - Encounter for prophylactic measures, unspecified Status: Acute Assessment and Plan: DVT prophylaxis: Heparin infusion stress ulcer prophylaxis:
[2019-11-15 12:49] LABS: Glucose Point of Care 363 (65-105)
[2019-11-15 13:52] LABS: Hematocrit 27.7 % (42.0-52.0); Hemoglobin 8.8 g/dL (14.0-18.0); Mean Corpuscular HGB Conc 31.8 g/dl (32-36); Mean Corpuscular Volume 103.7 fl (80-100); Mean Platelet Volume 11.5 fl (7.4-10.4); Platelet Count Result 193 k/mm3 (150-375); Red Blood Count 2.67 M/mm3 (4.6-6.20); Red Cell Distribution Width 21.7 % (11.5-14.5); White Blood Count 15.7 K/mm3 (4.5-10.0)
--- NOTE | 2019-11-15 15:17 | PM.PNNEP ---
Progress Note: A&P Assessment and Plan (1) ESRD (end stage renal disease) on dialysis: Code(s): N18.6 - End stage renal disease; Z99.2 - Dependence on renal dialysis Status: Acute Assessment and Plan: HD tomorrow and continue M/W/F schedule for now blood pressure usually runs low on the treatment limiting fluid removal consider re-attempt trial of midodrine.... (2) Gastric perforation: Code(s): K25.5 - Chronic or unspecified gastric ulcer with perforation Status: Acute Assessment and Plan: as noted by recent CT imaging complicated by perisplenic abscess s/p drain placement by IR last imaging demonstrated gastric leak still present continue current therapy (3) Peritonitis (acute) generalized: Code(s): K65.0 - Generalized (acute) peritonitis Status: Acute Assessment and Plan: PD fluid cultures growing yeast s/p PD catheter removal and washout completed 2 week course of antifungal therapy (4) Hyponatremia: Onset Date: Unknown Code(s): E87.1 - Hypo-osmolality and hyponatremia Status: Acute Assessment and Plan: stable at this time continue to follow (5) Cardiorespiratory arrest: Code(s): I46.9 - Cardiac arrest, cause unspecified Status: Acute Assessment and Plan: presumably precipitated by aspiration now has a tracheostomy remains on mechanical ventilation (6) Encephalopathy: Code(s): G93.40 - Encephalopathy, unspecified Status: Acute Assessment and Plan: some improvement noted continue supportive care Will continue to follow. Subjective Date/time seen: 11/15/19 15:17 Better hemodynamics at this time; remains on ventilator support; tolerating TPN; opens his eyes to name but does not follow commands; no apparent distress noted. Exam Narrative: Exam Narrative: General: WD/WN male in NAD; s/p tracheostomy Heart: irregular rhythm; no rub Lungs: coarse and diminished breath sounds Abdomen: soft, nontender, nondistended, positive bowel sounds Extremities: no cyanosis or clubbing; 1+ edema Skin: warm and intact Objective Data Vital Signs Vital Signs: Vital Signs Temp Pulse Resp BP Pulse Ox 11/15/19 14:15 100 25 H 11/15/19 14:13 100 100 11/15/19 14:08 98 25 H 11/15/19 12:00 36.3 C L 94 27 H 105/59 L 100 11/15/19 11:52 36.2 C L 93 26 H 119/94 H 98 11/15/19 11:00 118 H 98 11/15/19 10:23 36.3 C L 95 29 H 117/74 100 11/15/19 10:00 101 H 31 H 110/78 100 11/15/19 08:40 90 20 11/15/19 08:34 89 100 11/15/19 08:29 91 17 11/15/19 08:00 90 31 H 100 11/15/19 07:58 36.4 C L 91 17 124/63 100 11/15/19 06:00 37.0 C 93 27 H 125/59 L 100 11/15/19 04:56 97 100 11/15/19 04:00 36.8 C 93 23 H 114/54 L 100 11/15/19 02:00 102 H 30 H 100/88 100 11/15/19 01:50 102 H 33 H 11/15/19 01:45 103 H 100 11/15/19 01:44 108 H 26 H 11/15/19 00:00 36.7 C 101 H 20 87/26 L 100 11/14/19 23:02 98 100 11/14/19 20:03 102 H 30 H 11/14/19 20:00 36.3 C L 101 H 31 H 89/26 L 100 11/14/19 19:56 106 H 100 11/14/19 19:55 101 H 30 H 11/14/19 18:00 102 H 30 H 72/25 L 100 11/14/19 16:39 102 H 100 11/14/19 16:00 36.5 C 101 H 31 H 75/42 L 100 Intake/Output Intake/Output: Intake & Output 11/12/19 11/13/19 11/14/19 11/15/19 23:59 23:59 23:59 23:59 Intake Total 2005 2004 2315 350 Output Total 178 2015 70 125 [place] [id number] Meds/Results Medications: Active Medications Generic Name Dose Route Start Last Admin Trade Name Freq PRN Reason Stop Dose Admin Albuterol 2.5 mg 10/29/19 11:48 11/14/19 19:53 Albuterol Sulf Neb 2.5mg/0.5ml INHALATION 2.5 mg Q4HRT PRN Administration Wheezing or high peak pressure Alteplase, Recombinant 2 mg 11/14/19 07:02 11/14/19 07:56 Cathflo Activase IV PUSH 2 mg
--- NOTE | 2019-11-15 16:19 | PM.IMPN ---
Progress Note: A&P Assessment and Plan (1) Gastric perforation: Code(s): K25.5 - Chronic or unspecified gastric ulcer with perforation Status: Acute Assessment and Plan: 11/15/19 16:19 Interval history: 78-year-old male with history of end-stage renal disease on peritoneal dialysis presented emergency department had a cardiac arrest ROSC after 1 round of epinephrine per protocol ROSC, with shortness of breath and hypoxic patient was intubated currently on vent, patient may have aspirated pneumonia, patient in septic shock and on pressor, patient being treated with Levaquin, vancomycin and Flagyl, discussed with electronics assembler and tester prognosis is poor we appreciate electronics assembler and tester, patient is seen by Dr. Aguilar nephrology for peritoneal dialysis, Talent Development Consultant had spoken with patient's , she would like to keep full code and continue to treat the patient. septic shock resolved and patient is off Levophed, septic shock most likely secondary to aspiration pneumonia possibly peritonitis and treated with Flagyl cefepime and ceftazidime intraperitoneal by nephrology, patient is his leukocytosis etiology uncertain seen by Dr. Rowe and electronics assembler and tester, stopped all antibiotic and has started the patient vancomycin and aztreonam, meanwhile patient was seen by surgery and peritoneal dialysis catheter was removed and now patient is on hemodialysis, patient intubated having regular dialysis, unable to wean the patient off the ventilator,pt has PEG and Sp trache. From my previous notes. Nephrology, and discussed with electronics assembler and tester prognosis is poor now GI abscess more difficult to transfer the patient to LTAC Long history, family reluctant on hospice. Pt has PEG and Trache complicated with drain for perforation of the posterior fundus of the stomach with splenic infarct and fluid collection and drain placement ID ICU, surgery and nephrology rounding on patient there are no new issues will continue follow patient today patient's present in the room, earlier patient spoke with electronics assembler and tester and now patient is DNR, had a long discussion with the patient's , she is considering withdrawing care but not today. patient has a poor prognosis. (2) Severe sepsis: Code(s): A41.9 - Sepsis, unspecified organism; R65.20 - Severe sepsis without septic shock Status: Acute Assessment and Plan: Likely secondary to peritonitis, his dialysis catheter was removed however now he has a gastric perforation leaking into the peritoneum. See above ID rounding (3) ESRD (end stage renal disease) on dialysis: Code(s): N18.6 - End stage renal disease; Z99.2 - Dependence on renal dialysis Status: Acute Assessment and Plan: Nephrology rounding (4) Ventilator dependence: Code(s): Z99.11 - Dependence on respirator [ventilator] status Status: Acute Assessment and Plan: Icu rounding Subjective Date/time seen: 11/15/19 16:19 Interval history: 78-year-old male with history of end-stage renal disease on peritoneal dialysis presented emergency department had a cardiac arrest ROSC after 1 round of epinephrine per protocol ROSC, with shortness of breath and hypoxic patient was intubated currently on vent, patient may have aspirated pneumonia, patient in septic shock and on pressor, patient being treated with Levaquin, vancomycin and Flagyl, discussed with electronics assembler and tester prognosis is poor we appreciate electronics assembler and tester, patient is seen by Dr. Aguilar nephrology for peritoneal dialysis, Talent Development Consultant had spoken with patient's , she would like to keep full code and continue to treat the patient. septic shock resolved and patient is off Levophed, septic shock most likely secondary to aspiration pneumonia possibly peritonitis and treated with Flagyl cefepime and ceftazidime intraperitoneal by nephrology, patient is his leukocytosis etiology uncertain seen by Dr. Rowe and electronics assembler and tester, stopped all antibiotic and has started the
[2019-11-15 17:32] LABS: Glucose Point of Care 276 (65-105)
[2019-11-15 20:18] LABS: Glucose Point of Care 256 (65-105)
[2019-11-15 23:42] LABS: Glucose Point of Care 202 (65-105)
[2019-11-16] VITALS (43 sets, daily range): BP systolic 78–105; BP diastolic 44–84; PULSE 91–120; RESP 18–33; TEMP 36.5–37.3; O2SAT 30–100
[2019-11-16] MEDS: IPRATROPIUM BR 0.02% INH SOLN 0.5 MG/2.5 ML VIAL INHALATION ×4 (02:10→19:16)
[2019-11-16] MEDS: HEPARIN SOD/D5W 100 UNITS/ML 25,000 UNITS/250 ML BAG 7 UNITS IV CONT (02:20)
[2019-11-16 04:32] LABS: Estimated CRCL calculation 19 ml/min; Estimated Glomerular Filt Rate 25
[2019-11-16 04:35] LABS: Basophils Absolute Auto 0.2 K/mm3 (0.0-0.1); Basophils Percent Auto 0.7 % (0.2-1.2); Eosinophils Absolute Auto 0.2 K/mm3 (0-0.3); Hematocrit 26.7 % (42.0-52.0); Hemoglobin 8.8 g/dL (14.0-18.0); Immature Granulocyte Absolute 0.54 K/mm3 (0.00-0.031); Immature Granulocyte Percent A 2.4 % (0-0.5); Lymphocytes Absolute Auto 2.37 K/mm3 (0.9-3.2); Lymphocytes Percent Auto 10.5 % (18.3-44.2); Mean Corpuscular Hemoglobin 33.7 pg (26-34); Mean Corpuscular Volume 102.3 fl (80-100); Mean Platelet Volume 12.1 fl (7.4-10.4); Monocytes Absolute Auto 2.5 K/mm3 (0.1-0.6); Monocytes Percent Auto 11.1 % (2.6-8.5); Neutrophils Absolute Auto 16.7 K/mm3 (1.3-6.7); Neutrophils Percent Auto 74.3 % (45.5-73.1); Platelet Count Result 190 k/mm3 (150-375); Red Blood Count 2.61 M/mm3 (4.6-6.20); Red Cell Distribution Width 22.6 % (11.5-14.5); White Blood Count 22.5 K/mm3 (4.5-10.0)
[2019-11-16 04:39] LABS: Partial Thromboplastin Time 64.5 SECONDS (22.3-36.8)
[2019-11-16 04:57] LABS: Alanine Aminotransferase 43 U/L (4-50); Albumin Level 1.8 g/dL (3.5-5.1); Alkaline Phosphatase 250 U/L (38-126); Anion Gap 6 mmol/L (8-16); Aspartate Amino Transferase 130 U/L (17-59); Bilirubin,Total 0.6 mg/dL (0.2-1.3); Blood Urea Nitrogen 65 mg/dL (9-20); Calcium 6.9 mg/dL (8.4-10.2); Carbon Dioxide 25 mmol/L (22-30); Chloride 94 mmol/L (98-107); Estimated CRCL calculation 18 ml/min; Estimated Glomerular Filt Rate 24; Glucose 170 mg/dL (75-110); Magnesium 1.9 mg/dL (1.6-2.3); Potassium 4.3 mmol/L (3.4-5.0); Sodium 125 mmol/L (137-145)
[2019-11-16 04:58] LABS: Alveolar/Arterial O2 Gradient 90.2 mmHg; Base Excess ABG -2.8 mEq/l (+/-2.0); Carboxyhemoglobin 0.3 % THb (0-2.0); Fractional Inspired Oxygen 30 %; HCO3 ABG 20.1 mEq/l (22.0-26.0); Methemoglobin ABG 0.3 %THb (0-1.5); Oxygen Content ABG 13.3 %vol (16.0-22.0); Oxygen Saturation ABG 97.4 % (95.0-100.0); Oxyhemoglobin 95.5 % THb (90.0-100.0); PCO2 ABG 28.6 mmHg (35.0-45.0); PO2 ABG 90.1 mmHg (80.0-100.0); Reduced Hemoglobin 3.9 %THb (0-5.0); Total Hemoglobin 9.8 g/dL (12.0-18.0); pH ABG 7.465 (7.350-7.450)
[2019-11-16 04:59] LABS: Transferrin < 80 mg/dL (206-381)
[2019-11-16 04:59] LABS: Arterial Blood Gas Vent Mode ASV; Device VENTILATOR; Modified Allen's Test Pass; Site Drawn LEFT RADIAL
[2019-11-16 05:00] LABS: Arterial Blood Gas PEEP 5 cmH2O
[2019-11-16 05:10] LABS: Platelet Estimate Adequate (Adequate)
[2019-11-16 05:13] LABS: Hypochromasia 1+ (NORMAL); Macrocytosis 1+ (NORMAL); Stomatocytes 1+ (NORMAL)
[2019-11-16] MEDS: HEPARIN SODIUM 5,000 UNITS/ML VIAL 2500 UNITS IV PUSH ×2 (05:21→12:32)
[2019-11-16 05:59] LABS: Glucose Point of Care 200 (65-105)
[2019-11-16] MEDS: CENTRAL LINE FLUSH 10 ML IV PUSH ×3 (06:01→22:32)
[2019-11-16] MEDS: SUCRALFATE SUSP 100 MG/ML 10 ML UDC 1000 MG PO ×3 (06:02→18:11)
[2019-11-16] MEDS: NEOMYCIN/POLYMYXIN/BACITRACIN OINTMENT 15 GM TUBE 1 APPLIC TOPICAL (08:02)
[2019-11-16] MEDS: SILVERGEL (ELTA) 45 ML 1 APPLIC TOPICAL (08:02)
[2019-11-16] MEDS: PANTOPRAZOLE SODIUM IV 40 MG VIAL IV PUSH ×2 (08:02→20:26)
[2019-11-16] MEDS: INSULIN DETEMIR 100 UNITS/ML 15 UNITS SUB-Q ×2 (08:04→20:27)
[2019-11-16] MEDS: ALBUTEROL SULFATE NEB 2.5 MG/0.5 ML INH INHALATION (08:40)
--- NOTE | 2019-11-16 09:10 | P.PNNP_ITS ---
Progress Note: A&P Assessment and Plan (1) ESRD (end stage renal disease) on dialysis: Code(s): N18.6 - End stage renal disease; Z99.2 - Dependence on renal dialysis Status: Acute Assessment and Plan: * HD today. * His blood pressure is somewhat soft so we will give midodrine 10 mg before treatment and also give some otherwise as well. (2) Gastric perforation: Code(s): K25.5 - Chronic or unspecified gastric ulcer with perforation Status: Acute Assessment and Plan: * as noted by recent CT imaging * complicated by perisplenic abscess * s/p drain placement by IR * last imaging demonstrated gastric leak still present * He does have some bowel sounds now. * Getting TPN for nutrition (3) Peritonitis (acute) generalized: Code(s): K65.0 - Generalized (acute) peritonitis Status: Acute Assessment and Plan: * completed 2 week course of antifungal therapy (4) Hyponatremia: Onset Date: Unknown Code(s): E87.1 - Hypo-osmolality and hyponatremia Status: Acute Assessment and Plan: * stable at this time * sodium running in the mid 120s. * continue to follow (5) Cardiorespiratory arrest: Code(s): I46.9 - Cardiac arrest, cause unspecified Status: Acute Assessment and Plan: * presumably precipitated by aspiration * now has a tracheostomy * remains on mechanical ventilation (6) Encephalopathy: Code(s): G93.40 - Encephalopathy, unspecified Status: Acute Assessment and Plan: * some improvement noted * continue supportive care Subjective Date/time seen: 11/16/19 09:10 Interval history: patient is lying in ICU bed. He grimaces with any tactile contact ( such as moving his arm, or checking for swelling in his hips.) He is still on the ventilator. Review of Systems Cardiovascular: Cardiovascular: Reports no additional cardiovascular complaints Respiratory: Respiratory: Reports no additional respiratory complaints Gastrointestinal: Gastrointestinal: Reports no additional gastrointestinal complaints Genitourinary: Genitourinary: Reports no additional male genitourinary complaints Exam Narrative: Exam Narrative: Well developed well-nourished gentleman lying in hospital bed on the ventilator. Lungs are symmetric and coarse. Heart regular without rub. Abdomen bowel sounds are positive, mildly tender. But he also winces with pushing on any part of his body. Extremities 1+ presacral edema skin no rash Objective Data Vital Signs Vital Signs: Vital Signs - 24 hr 11/15/19 10:00 11/15/19 10:23 11/15/19 11:00 Temperature 36.3 C L Pulse Rate 101 H 95 118 H Respiratory Rate 31 H 29 H Blood Pressure 110/78 117/74 Pulse Oximetry 100 100 98 11/15/19 11:52 11/15/19 12:00 11/15/19 14:00 Temperature 36.2 C L 36.3 C L Pulse Rate 93 94 98 Respiratory Rate 26 H 27 H 21 H Blood Pressure 119/94 H 105/59 L 130/75 Pulse Oximetry 98 100 100 11/15/19 14:08 11/15/19 14:13 11/15/19 14:15 Temperature Pulse Rate 98 100 100 Respiratory Rate 25 H 25 H Blood Pressure Pulse Oximetry 100 11/15/19 16:00 11/15/19 17:30 11/15/19 18:00
--- NOTE | 2019-11-16 09:10 | PM.PNNEP ---
Progress Note: A&P Assessment and Plan (1) ESRD (end stage renal disease) on dialysis: Code(s): N18.6 - End stage renal disease; Z99.2 - Dependence on renal dialysis Status: Acute Assessment and Plan: HD today. His blood pressure is somewhat soft so we will give midodrine 10 mg before treatment and also give some otherwise as well. (2) Gastric perforation: Code(s): K25.5 - Chronic or unspecified gastric ulcer with perforation Status: Acute Assessment and Plan: as noted by recent CT imaging complicated by perisplenic abscess s/p drain placement by IR last imaging demonstrated gastric leak still present He does have some bowel sounds now. Getting TPN for nutrition (3) Peritonitis (acute) generalized: Code(s): K65.0 - Generalized (acute) peritonitis Status: Acute Assessment and Plan: completed 2 week course of antifungal therapy (4) Hyponatremia: Onset Date: Unknown Code(s): E87.1 - Hypo-osmolality and hyponatremia Status: Acute Assessment and Plan: stable at this time sodium running in the mid 120s. continue to follow (5) Cardiorespiratory arrest: Code(s): I46.9 - Cardiac arrest, cause unspecified Status: Acute Assessment and Plan: presumably precipitated by aspiration now has a tracheostomy remains on mechanical ventilation (6) Encephalopathy: Code(s): G93.40 - Encephalopathy, unspecified Status: Acute Assessment and Plan: some improvement noted continue supportive care Subjective Date/time seen: 11/16/19 09:10 Interval history: patient is lying in ICU bed. He grimaces with any tactile contact ( such as moving his arm, or checking for swelling in his hips.) He is still on the ventilator. Review of Systems Cardiovascular: Cardiovascular: Reports no additional cardiovascular complaints Respiratory: Respiratory: Reports no additional respiratory complaints Gastrointestinal: Gastrointestinal: Reports no additional gastrointestinal complaints Genitourinary: Genitourinary: Reports no additional male genitourinary complaints Exam Narrative: Exam Narrative: Well developed well-nourished gentleman lying in hospital bed on the ventilator. Lungs are symmetric and coarse. Heart regular without rub. Abdomen bowel sounds are positive, mildly tender. But he also winces with pushing on any part of his body. Extremities 1+ presacral edema skin no rash Objective Data Vital Signs Vital Signs: Vital Signs - 24 hr 11/15/19 10:00 11/15/19 10:23 11/15/19 11:00 Temperature 36.3 C L Pulse Rate 101 H 95 118 H Respiratory Rate 31 H 29 H Blood Pressure 110/78 117/74 Pulse Oximetry 100 100 98 11/15/19 11:52 11/15/19 12:00 11/15/19 14:00 Temperature 36.2 C L 36.3 C L Pulse Rate 93 94 98 Respiratory Rate 26 H 27 H 21 H Blood Pressure 119/94 H 105/59 L 130/75 Pulse Oximetry 98 100 100 11/15/19 14:08 11/15/19 14:13 11/15/19 14:15 Temperature Pulse Rate 98 100 100 Respiratory Rate 25 H 25 H Blood Pressure Pulse Oximetry 100 11/15/19 16:00 11/15/19 17:30 11/15/19 18:00 Temperature 36.3 C L Pulse Rate 97 100 105 H Respiratory Rate 27 H 22 H Blood Pressure 119/82 123/77 Pulse Oximetry 100 97 100 11/15/19 20:00 11/15/19 20:10 11/15/19 20:27 Temperature 36.5 C Pulse Rate 92 99 119 H Respiratory Rate 24 H 25 H Blood Pressure 100/58 L Pulse Oximetry 99 99 11/15/19 22:00 11/15/19 23:31 11/16/19 00:00 Temperature 36.6 C Pulse Rate 108 H 112 H 112 H Respiratory Rate 24 H 33 H Blood Pressure 150/63 H 101/80 Pulse Oximetry 99 100 100 11/16/19 01:57 11/16/19 02:00 11/16/19 02:11 Temperature Pulse Rate 113 H 111 H 100 Respiratory Rate 28 H 25 H Blood Pressure 88/53 L Pulse Oximetry 100 100 11/16/19 04:00 11/16/19 04:37 11/16/19 06:00 Temperature 36.8 C Pulse Rate 113 H 107
[2019-11-16 09:57] LABS: INR 1.6; Prothrombin Time 18.3 Seconds (11.1-14.7)
[2019-11-16] MEDS: MIDODRINE HCL 10 MG TABLET PO ×2 (11:24→18:10)
--- NOTE | 2019-11-16 11:33 | PCDIET ---
ICU Rounding Note: Patient receiving Clinimix E 5/15 at 80mL/hr with 250mL 20% lipids every 72 hours. Undergoing dialysis at this time. No increase in PN at this time due to plan for limited fluid removal. Last recorded weight is 73.6kg which is stable. Bowel Motility: FMS has been removed. Labs Reviewed: Hgb (8.8), Hct (26.7), Glu (170), BUN (65), Cr (2.5), Na (125), Alb (1.8), Ade Ca (8.66), TG (142) Meds Noted: Albuterol, Levemir, Retacrit, Novolog, Atrovent, Synthroid, Protonix, Vancomycin Additional Notes: Wounds to right posterior leg and coccyx remain. PN providing 1363kcal and 96g protein daily with additional 500kcal from lipids every 3 days. Following daily in ICU rounds. Assessing/reassessing every Saturday/Saturday.
[2019-11-16] MEDS: ALBUMIN HUMAN 25% 12.5 GM/50ML 50 ML IVPB (11:50)
--- NOTE | 2019-11-16 11:51 | PM.EVENT ---
Event Note Event Note Event Note: On HD rocio it well. bp has been soft and midodrine as well as low temp bath helped.
[2019-11-16] MEDS: EPOETIN ALFA-EPBX 10,000 UNITS/ML VIAL 10000 UNITS IV PUSH (11:55)
[2019-11-16 11:57] LABS: Partial Thromboplastin Time 67.6 SECONDS (22.3-36.8)
[2019-11-16 12:32] LABS: Glucose Point of Care 148 (65-105)
--- NOTE | 2019-11-16 13:01 | WPDINFPN2 ---
Progress Note: A&P Assessment and Plan (1) Gastric perforation: Code(s): K25.5 - Chronic or unspecified gastric ulcer with perforation Status: Acute Assessment and Plan: 1. Gastric perforation leading to posterior abscess with Enterocccus 2. Past Linda peritonitis, treated successfully 3. [facility] REC Vanc monotherapy # 6 / 10 days, PharmD to dose. Off other antimicrobials. Very poor prognosis. Subjective Date/time seen: 11/16/19 13:01 Interval history: trach in, on vent support, on HD Exam Narrative: Exam Narrative: afebrile Const: General: no acute distress Eyes: General: appearance normal, both eyes and all related structures Resp: Effort & Inspection: normal respiratory effort Auscultation: rales and diminished lung sounds Cardio: Rate: regular rate Rhythm: regular rhythm Heart sounds: no murmurs GI: Inspection: non-distended GI Palp: Yes Soft to palpation, Yes Tenderness to palpation present (GI) and No Guarding due to palpation present (GI) Objective Data Vital Signs Vital Signs: Vital Signs - 24 hr 11/15/19 14:00 11/15/19 14:08 11/15/19 14:13 Temperature Pulse Rate 98 98 100 Respiratory Rate 21 H 25 H Blood Pressure 130/75 Pulse Oximetry 100 100 11/15/19 14:15 11/15/19 16:00 11/15/19 17:30 Temperature 36.3 C L Pulse Rate 100 97 100 Respiratory Rate 25 H 27 H Blood Pressure 119/82 Pulse Oximetry 100 97 11/15/19 18:00 11/15/19 20:00 11/15/19 20:10 Temperature 36.5 C Pulse Rate 105 H 92 99 Respiratory Rate 22 H 24 H 25 H Blood Pressure 123/77 100/58 L Pulse Oximetry 100 99 11/15/19 20:27 11/15/19 22:00 11/15/19 23:31 Temperature Pulse Rate 119 H 108 H 112 H Respiratory Rate 24 H Blood Pressure 150/63 H Pulse Oximetry 99 99 100 11/16/19 00:00 11/16/19 01:57 11/16/19 02:00 Temperature 36.6 C Pulse Rate 112 H 113 H 111 H Respiratory Rate 33 H 28 H Blood Pressure 101/80 88/53 L Pulse Oximetry 100 100 100 11/16/19 02:11 11/16/19 04:00 11/16/19 04:37 Temperature 36.8 C Pulse Rate 100 113 H 107 H Respiratory Rate 25 H 31 H Blood Pressure 87/49 L Pulse Oximetry 100 100 11/16/19 06:00 11/16/19 08:40 11/16/19 08:50 Temperature Pulse Rate 98 110 H 109 H Respiratory Rate 25 H 33 H 30 H Blood Pressure 89/46 L Pulse Oximetry 100 100 11/16/19 09:52 11/16/19 09:56 11/16/19 10:00 Temperature 36.6 C Pulse Rate 100 100 99 Respiratory Rate 33 H Blood Pressure 86/44 L 96/47 L 91/59 L Pulse Oximetry 30 L 11/16/19 10:15 11/16/19 10:30 11/16/19 10:45 Temperature Pulse Rate 99 110 H 108 H Respiratory Rate Blood Pressure 95/52 L 92/51 L 80/50 L Pulse Oximetry 11/16/19 10:48 11/16/19 10:55 11/16/19 11:00 Temperature Pulse Rate 108 H 110 H 113 H Respiratory Rate Blood Pressure 78/58 L 91/53 L 95/61 L Pulse Oximetry 11/16/19 11:15 11/16/19 11:30 11/16/19 11:37 Temperature Pulse Rate 120 H 114 H 110 H Respiratory Rate Blood Pressure 103/71 103/84 Pulse Oximetry 100 11/16/19 11:45 11/16/19 12:00 11/16/19 12:15 Temperature Pulse Rate 112 H 106 H 112 H Respiratory Rate Blood Pressure 84/49 L 86/66 L 91/59 L Pulse Oximetry 11/16/19 12:30 11/16/19 12:45 Temperature Pulse Rate 114 H 114 H Respiratory Rate Blood Pressure 103/50 L 91/69 L Pulse Oximetry Intake/Output Intake/Output: Intake & Output 11/13/19 11/14/19 11/15/19 11/16/19 23:59 23:59 23:59 23:59 Intake Total 2004 1207 2355 269 Output Total 2015 70 147 103 Balance -11 2029 5397 166 Meds/Results Medications: Active Medications Generic Name Dose Route Start Last Admin Trade Name Freq PRN Reason Stop Dose Admin Albuterol 2.5 mg 10/29/19 11:48 11/16/19 08:40 Albuterol Sulf Neb 2.5mg/0.5ml INHALATION 2.5 mg Q4HRT PRN Administration Wheezing or high peak pressure Alteplase, Recombinant 2 mg 11/14/19 07:02 11/14/19 07:56 Cathflo Activase IV PU
--- NOTE | 2019-11-16 15:20 | PM.PNGS ---
Progress Note: A&P Assessment and Plan (1) Gastric perforation: Code(s): K25.5 - Chronic or unspecified gastric ulcer with perforation Status: Acute Assessment and Plan: Xray this AM shows persistent perforation with contrast extravasation into drain tubing. Still cannot feed enterally unless this seals. I discussed this with patient's . I discussed that he would have a high chance of worsening with surgery, but without surgery this perforation does not seem to be likely to heal. Will continue TPN and IV protonix. Repeat UGI only if pigtail output significantly decreases. Eventual comfort measures if patient does not improve. (2) Ventilator dependence: Code(s): Z99.11 - Dependence on respirator [ventilator] status Status: Acute Subjective Subjective Date/Time Seen: 11/16/19 15:20 Patient seen and examined. Contrast study performed today to assess if ulcer has sealed. His blood pressure is lower today. Exam Narrative: Exam Narrative: afebrile GI: Inspection: non-distended GI Palp: Yes Soft to palpation, Yes Tenderness to palpation present (GI) and No Guarding due to palpation present (GI) Other: left abdominal pigtail drain in place, yellow purulent output Objective Data Vital Signs Vital Signs: Vital Signs - 24 hr 11/15/19 16:00 11/15/19 17:30 11/15/19 18:00 Temperature 36.3 C L Pulse Rate 97 100 105 H Respiratory Rate 27 H 22 H Blood Pressure 119/82 123/77 Pulse Oximetry 100 97 100 11/15/19 20:00 11/15/19 20:10 11/15/19 20:27 Temperature 36.5 C Pulse Rate 92 99 119 H Respiratory Rate 24 H 25 H Blood Pressure 100/58 L Pulse Oximetry 99 99 11/15/19 22:00 11/15/19 23:31 11/16/19 00:00 Temperature 36.6 C Pulse Rate 108 H 112 H 112 H Respiratory Rate 24 H 33 H Blood Pressure 150/63 H 101/80 Pulse Oximetry 99 100 100 11/16/19 01:57 11/16/19 02:00 11/16/19 02:11 Temperature Pulse Rate 113 H 111 H 100 Respiratory Rate 28 H 25 H Blood Pressure 88/53 L Pulse Oximetry 100 100 11/16/19 04:00 11/16/19 04:37 11/16/19 06:00 Temperature 36.8 C Pulse Rate 113 H 107 H 98 Respiratory Rate 31 H 25 H Blood Pressure 87/49 L 89/46 L Pulse Oximetry 100 100 100 11/16/19 08:00 11/16/19 08:40 11/16/19 08:50 Temperature 36.9 C Pulse Rate 102 H 110 H 109 H Respiratory Rate 27 H 33 H 30 H Blood Pressure 94/52 L Pulse Oximetry 100 100 11/16/19 09:52 11/16/19 09:56 11/16/19 10:00 Temperature 36.6 C Pulse Rate 100 100 99 Respiratory Rate 33 H 27 H Blood Pressure 86/44 L 96/47 L 91/51 L Pulse Oximetry 30 L 100 11/16/19 10:15 11/16/19 10:30 11/16/19 10:45 Temperature Pulse Rate 99 110 H 108 H Respiratory Rate Blood Pressure 95/52 L 92/51 L 80/50 L Pulse Oximetry 11/16/19 10:48 11/16/19 10:55 11/16/19 11:00 Temperature Pulse Rate 108 H 110 H 113 H Respiratory Rate Blood Pressure 78/58 L 91/53 L 95/61 L Pulse Oximetry 11/16/19 11:15 11/16/19 11:30 11/16/19 11:37 Temperature Pulse Rate 120 H 114 H 110 H Respiratory Rate Blood Pressure 103/71 103/84 Pulse Oximetry 100 11/16/19 11:45 11/16/19 12:00 11/16/19 12:15 Temperature 36.9 C Pulse Rate 112 H 110 H 112 H Respiratory Rate 28 H Blood Pressure 84/49 L 86/66 L 91/59 L Pulse Oximetry 100 11/16/19 12:30 11/16/19 12:45 11/16/19 12:56 Temperature Pulse Rate 114 H 114 H 115 H Respiratory Rate Blood Pressure 103/50 L 91/69 L 101/51 L Pulse Oximetry 11/16/19 13:00 11/16/19 14:00 Temperature 36.5 C Pulse Rate 113 H 102 H Respiratory Rate 29 H 30 H Blood Pressure 103/51 L 104/48 L Pulse Oximetry 100 100 Intake/Output Intake/Output: Intake & Output 11/13/19 11/14/19 11/15/19 11/16/19 23:59 23:59 23:59 23:59 Intake Total 2004 3537 4116 886 Output Total 2016 70 893 80 [facility] -11 [phone] Meds/Results Medications: Active Medications Generic Name Dose Route Start Last Admin Trade
[2019-11-16 15:52] LABS: Triglycerides 97 mg/dL (<150)
--- NOTE | 2019-11-16 15:52 | WPDINTPN ---
Progress Note: A&P Assessment and Plan (1) Acute respiratory failure: Code(s): J96.00 - Acute respiratory failure, unspecified whether with hypoxia or hypercapnia Status: Acute Assessment and Plan: - patient on mechanical ventilation - patient now status post tracheostomy on 10/30/2019 - patient had a a ultrasound-guided thoracentesis done on 10/26 on right and 150 mL fluid was removed which was negative for any Gram stain or culture. - Continue CMV at this time. - Continue physical and occupational therapy to work with the patient - patient tolerating ASV mode of ventilation on 30% FiO2 and peep of 5 - appreciate pulmonology evaluation and recommendation (2) Severe sepsis: Code(s): A41.9 - Sepsis, unspecified organism; R65.20 - Severe sepsis without septic shock Status: Acute Assessment and Plan: RESOLVED - status post successful treatment of Linda peritonitis with anti fungal therapy 11/06/2019: CT chest/abdomen /pelvis showed perforation of the posterior fundus of the stomach with splenic infarct and fluid collection , status post CT-guided placement of a drain with purulent drainage - cultures from abscess on the posterior aspect of the stomach growing Enterococcus, - leukocytosis persists, ID following, continue Vancomycin #/ (3) Peritonitis: Onset Date: ~10/2019 Code(s): K65.9 - Peritonitis, unspecified Status: Acute Assessment and Plan: status post successful treatment of Linda peritonitis - status post removal of peritoneal dialysis catheter on 10/21/2019, Catheter and peritoneal fluid sent for culture - SILVA drains x1 draining minimal amount of serosanguineous fluid, surgery following the patient. (4) Aspiration pneumonia: Code(s): J69.0 - Pneumonitis due to inhalation of food and vomit Status: Acute Assessment and Plan: completed course of antibiotics (5) Encephalopathy: Code(s): G93.40 - Encephalopathy, unspecified Status: Acute Assessment and Plan: - was improving, normal patient only opens his eyes intermittently but does not follow simple commands - dropped his hemoglobin was no obvious bleed, patient on heparin infusion, CT scan of the brain on 11/15/2019: Unchanged mild scattered white matter hypoattenuation consistent with chronic small-vessel ischemic disease. No acute intracranial process. Increasing small left and large right otomastoiditis effusion - patient is off all sedation - encephalopathy likely multifactorial related to metabolic /uremic encephalopathy, infectious encephalopathy, medication related, critical care encephalopathy - EEG was done on 10/20/2019 and discussed with Neurology, EEG had significant slowing, likely related to severe encephalopathy. No epileptiform discharges were seen - patient did have a CT scan of the brain on 10/18/2019: was negative for any acute intracranial pathology (6) Cardiorespiratory arrest: Code(s): I46.9 - Cardiac arrest, cause unspecified Status: Acute Assessment and Plan: PEA arrest on 10/13/2019 likely due to aspiration, ROSC after 1 round of epinephrine - post arrest pt was following commands and so did not require hypothermia protocol (7) Colitis: Code(s): K52.9 - Noninfective gastroenteritis and colitis, unspecified Status: Acute Assessment and Plan: RESOLVED (8) ESRD (end stage renal disease) on dialysis: Code(s): N18.6 - End stage renal disease; Z99.2 - Dependence on renal dialysis Status: Acute Assessment and Plan: patient with end-stage renal disease on peritoneal dialysis, FUNGAL PERITONITIS - removal of peritoneal dialysis catheter and insertion of right IJ tunnel dialysis catheter was done on 10/21/2019. - Patient started on hemodialysis on 10/21/2019, - Further dialysis per Nephrology (9) DVT prophylaxis: Code(s): Z
--- NOTE | 2019-11-16 16:00 | P.PNINT_ITS ---
Progress Note: A&P Assessment and Plan (1) Acute respiratory failure: Code(s): J96.00 - Acute respiratory failure, unspecified whether with hypoxia or hypercapnia Status: Acute Assessment and Plan: - patient on mechanical ventilation - patient now status post tracheostomy on 10/30/2019 - patient had a a ultrasound-guided thoracentesis done on 10/26 on right and 150 mL fluid was removed which was negative for any Gram stain or culture. - Continue CMV at this time. - Continue physical and occupational therapy to work with the patient - patient tolerating ASV mode of ventilation on 30% FiO2 and peep of 5 - appreciate pulmonology evaluation and recommendation (2) Severe sepsis: Code(s): A41.9 - Sepsis, unspecified organism; R65.20 - Severe sepsis without septic shock Status: Acute Assessment and Plan: RESOLVED - status post successful treatment of Linda peritonitis with anti fungal therapy 11/06/2019: CT chest/abdomen /pelvis showed perforation of the posterior fundus of the stomach with splenic infarct and fluid collection , status post CT-guided placement of a drain with purulent drainage - cultures from abscess on the posterior aspect of the stomach growing Enterococcus, - leukocytosis persists, ID following, continue Vancomycin #/ (3) Peritonitis: Onset Date: ~10/2019 Code(s): K65.9 - Peritonitis, unspecified Status: Acute Assessment and Plan: status post successful treatment of Linda peritonitis - status post removal of peritoneal dialysis catheter on 10/21/2019, Catheter and peritoneal fluid sent for culture - SILVA drains x1 draining minimal amount of serosanguineous fluid, surgery following the patient. (4) Aspiration pneumonia: Code(s): J69.0 - Pneumonitis due to inhalation of food and vomit Status: Acute Assessment and Plan: completed course of antibiotics (5) Encephalopathy: Code(s): G93.40 - Encephalopathy, unspecified Status: Acute Assessment and Plan: - was improving, normal patient only opens his eyes intermittently but does not follow simple commands - dropped his hemoglobin was no obvious bleed, patient on heparin infusion, CT scan of the brain on 11/15/2019: Unchanged mild scattered white matter hypoattenuation consistent with chronic small-vessel ischemic disease. No acute intracranial process. Increasing small left and large right otomastoiditis effusion - patient is off all sedation - encephalopathy likely multifactorial related to metabolic /uremic encephalopathy, infectious encephalopathy, medication related, critical care encephalopathy - EEG was done on 10/20/2019 and discussed with Neurology, EEG had significant slowing, likely related to severe encephalopathy. No epileptiform discharges were seen - patient did have a CT scan of the brain on 10/18/2019: was negative for any acute intracranial pathology (6) Cardiorespiratory arrest: Code(s): I46.9 - Cardiac arrest, cause unspecified Status: Acute Assessment and Plan: PEA arrest on 10/13/2019 likely due to aspiration, ROSC after 1 round of epinephrine - post arrest pt was following commands and so did not require hypothermia protocol (7) Colitis: Code(s): K52.9 - Noninfective gastroenteritis and colitis, unspecified Status: Acute Assessment and Plan: RESOLVED (8) ESRD (end stage renal disease) on dialysis: Code(s): N18.6 - End stage renal disease; Z99.2 - Dependence on renal dialysis
[2019-11-16 16:57] LABS: Vancomycin Random 18.9 ug/mL (10-20)
[2019-11-16 18:18] LABS: Glucose Point of Care 161 (65-105)
[2019-11-16 19:01] LABS: Partial Thromboplastin Time 113.1 SECONDS (22.3-36.8)
--- NOTE | 2019-11-16 19:16 | PM.IMPN ---
Progress Note: A&P Assessment and Plan (1) Gastric perforation: Code(s): K25.5 - Chronic or unspecified gastric ulcer with perforation Status: Acute Assessment and Plan: Interval history: 78-year-old male with history of end-stage renal disease on peritoneal dialysis presented emergency department had a cardiac arrest ROSC after 1 round of epinephrine per protocol ROSC, with shortness of breath and hypoxic patient was intubated currently on vent, patient may have aspirated pneumonia, patient in septic shock and on pressor, patient being treated with Levaquin, vancomycin and Flagyl, discussed with fairing man prognosis is poor we appreciate fairing man, patient is seen by Dr. Aguilar nephrology for peritoneal dialysis, Security Rep had spoken with patient's , she would like to keep full code and continue to treat the patient. septic shock resolved and patient is off Levophed, septic shock most likely secondary to aspiration pneumonia possibly peritonitis and treated with Flagyl cefepime and ceftazidime intraperitoneal by nephrology, patient is his leukocytosis etiology uncertain seen by Dr. Rowe and fairing man, stopped all antibiotic and has started the patient vancomycin and aztreonam, meanwhile patient was seen by surgery and peritoneal dialysis catheter was removed and now patient is on hemodialysis, patient intubated having regular dialysis, unable to wean the patient off the ventilator,pt has PEG and Sp trache. From my previous notes. Nephrology, and discussed with fairing man prognosis is poor now GI abscess more difficult to transfer the patient to LTAC Long history, family reluctant on hospice. Pt has PEG and Trache complicated with drain for perforation of the posterior fundus of the stomach with splenic infarct and fluid collection and drain placement ID ICU, surgery and nephrology rounding on patient there are no new issues will continue follow patient today patient's present in the room, earlier patient spoke with fairing man and now patient is DNR, had a long discussion with the patient's , she is considering withdrawing care but not today. patient has a poor prognosis., today patient family has decided to withdraw the care, patient is off ventilator clinically stable (2) Severe sepsis: Code(s): A41.9 - Sepsis, unspecified organism; R65.20 - Severe sepsis without septic shock Status: Acute Assessment and Plan: Likely secondary to peritonitis, his dialysis catheter was removed however now he has a gastric perforation leaking into the peritoneum. See above ID rounding (3) ESRD (end stage renal disease) on dialysis: Code(s): N18.6 - End stage renal disease; Z99.2 - Dependence on renal dialysis Status: Acute Assessment and Plan: Nephrology rounding (4) Ventilator dependence: Code(s): Z99.11 - Dependence on respirator [ventilator] status Status: Acute Assessment and Plan: Icu rounding Subjective Date/time seen: Interval history: 78-year-old male with history of end-stage renal disease on peritoneal dialysis presented emergency department had a cardiac arrest ROSC after 1 round of epinephrine per protocol ROSC, with shortness of breath and hypoxic patient was intubated currently on vent, patient may have aspirated pneumonia, patient in septic shock and on pressor, patient being treated with Levaquin, vancomycin and Flagyl, discussed with fairing man prognosis is poor we appreciate fairing man, patient is seen by Dr. Aguilar nephrology for peritoneal dialysis, Security Rep had spoken with patient's , she would like to keep full code and continue to treat the patient. septic shock resolved and patient is off Levophed, septic shock most likely secondary to aspiration pneumonia possibly peritonitis and treated with Flagyl cefepime and ceftazidime intraperitoneal by nephrology, patient is his leukocytosis etiology uncertain seen by
[2019-11-16 20:31] LABS: Glucose Point of Care 186 (65-105)
[2019-11-17] VITALS (41 sets, daily range): BP systolic 87–154; BP diastolic 47–96; PULSE 86–114; RESP 19–32; TEMP 35.9–37.2; O2SAT 64–100
[2019-11-17] MEDS: SUCRALFATE SUSP 100 MG/ML 10 ML UDC 1000 MG PO ×5 (00:14→23:18)
[2019-11-17] MEDS: INSULIN ASPART (*BKC) 100 UNITS/ML SUB-Q ×3 (00:16→17:45)
[2019-11-17 00:25] LABS: Glucose Point of Care 205 (65-105)
[2019-11-17 00:50] LABS: Partial Thromboplastin Time 79.6 SECONDS (22.3-36.8)
[2019-11-17] MEDS: IPRATROPIUM BR 0.02% INH SOLN 0.5 MG/2.5 ML VIAL INHALATION ×3 (01:33→14:33)
--- NOTE | 2019-11-17 04:24 | PCRCNOTE ---
I stuck the pt twice for an ABG. PT a difficult stick and unable to obtain.
[2019-11-17 04:46] LABS: Basophils Absolute Auto 0.1 K/mm3 (0.0-0.1); Basophils Percent Auto 0.8 % (0.2-1.2); Eosinophils Absolute Auto 0.2 K/mm3 (0-0.3); Eosinophils Percent Auto 1.1 % (0-4.4); Hematocrit 24.9 % (42.0-52.0); Hemoglobin 8.1 g/dL (14.0-18.0); Immature Granulocyte Absolute 0.29 K/mm3 (0.00-0.031); Immature Granulocyte Percent A 1.7 % (0-0.5); Lymphocytes Absolute Auto 2.45 K/mm3 (0.9-3.2); Lymphocytes Percent Auto 14.6 % (18.3-44.2); Mean Corpuscular HGB Conc 32.5 g/dl (32-36); Mean Corpuscular Hemoglobin 33.9 pg (26-34); Mean Corpuscular Volume 104.2 fl (80-100); Mean Platelet Volume 11.8 fl (7.4-10.4); Monocytes Absolute Auto 2.5 K/mm3 (0.1-0.6); Monocytes Percent Auto 14.9 % (2.6-8.5); Neutrophils Absolute Auto 11.2 K/mm3 (1.3-6.7); Neutrophils Percent Auto 66.9 % (45.5-73.1); Platelet Count Result 190 k/mm3 (150-375); Red Blood Count 2.39 M/mm3 (4.6-6.20); Red Cell Distribution Width 22.5 % (11.5-14.5); White Blood Count 16.8 K/mm3 (4.5-10.0)
[2019-11-17 05:00] LABS: Lactic Acid Reflex 1.2 mmol/L (0.7-2.1)
[2019-11-17] MEDS: CENTRAL LINE FLUSH 10 ML IV PUSH ×3 (05:08→21:28)
[2019-11-17 05:13] LABS: Alanine Aminotransferase 34 U/L (4-50); Albumin Level 1.9 g/dL (3.5-5.1); Alkaline Phosphatase 189 U/L (38-126); Anion Gap 5 mmol/L (8-16); Aspartate Amino Transferase 67 U/L (17-59); Bilirubin,Total 0.5 mg/dL (0.2-1.3); Blood Urea Nitrogen 45 mg/dL (9-20); Calcium 7.1 mg/dL (8.4-10.2); Carbon Dioxide 28 mmol/L (22-30); Chloride 96 mmol/L (98-107); Estimated CRCL calculation 26 ml/min; Estimated Glomerular Filt Rate 37; Glucose 174 mg/dL (75-110); Phosphorus 4.4 mg/dL (2.5-4.5); Potassium 3.7 mmol/L (3.4-5.0); Sodium 129 mmol/L (137-145)
[2019-11-17] MEDS: HEPARIN SODIUM 5,000 UNITS/ML VIAL 2500 UNITS IV PUSH (05:13)
[2019-11-17 05:16] LABS: Glucose Point of Care 163 (65-105)
[2019-11-17] MEDS: HEPARIN SOD/D5W 100 UNITS/ML 25,000 UNITS/250 ML BAG 9 UNITS IV CONT (07:15)
[2019-11-17] MEDS: INSULIN DETEMIR 100 UNITS/ML 15 UNITS SUB-Q ×2 (09:01→21:28)
[2019-11-17] MEDS: PANTOPRAZOLE SODIUM IV 40 MG VIAL IV PUSH ×2 (09:02→21:27)
[2019-11-17] MEDS: FAT EMULSIONS IV 20% 250 ML 20.8 ML IVPB (09:02)
[2019-11-17] MEDS: MIDODRINE HCL 10 MG TABLET PO ×3 (09:02→17:23)
[2019-11-17] MEDS: SILVERGEL (ELTA) 45 ML 1 APPLIC TOPICAL (09:03)
[2019-11-17] MEDS: NEOMYCIN/POLYMYXIN/BACITRACIN OINTMENT 15 GM TUBE 1 APPLIC TOPICAL (09:03)
--- NOTE | 2019-11-17 10:50 | P.PNNP_ITS ---
Progress Note: A&P Assessment and Plan (1) ESRD (end stage renal disease) on dialysis: Code(s): N18.6 - End stage renal disease; Z99.2 - Dependence on renal dialysis Status: Acute Assessment and Plan: * HD Done yesterday. However only 700cc of fluid was able to be removed. * Will try dry ultrafiltration today to see if we can get more fluid off. He gets a lot of fluid with this TPN every day. So we are following further behind. * Overall prognosis is grim. Family discussions continue. (2) Gastric perforation: Code(s): K25.5 - Chronic or unspecified gastric ulcer with perforation Status: Acute Assessment and Plan: * as noted by recent CT imaging * complicated by perisplenic abscess * s/p drain placement by IR * Yesterday, imaging still demonstrated gastric leak still present * He does have some bowel sounds now. * Getting TPN for nutrition (3) Peritonitis (acute) generalized: Code(s): K65.0 - Generalized (acute) peritonitis Status: Acute Assessment and Plan: * completed 2 week course of antifungal therapy (4) Hyponatremia: Onset Date: Unknown Code(s): E87.1 - Hypo-osmolality and hyponatremia Status: Acute Assessment and Plan: * stable at this time * sodium running in the mid too high 120s. * continue to follow (5) Cardiorespiratory arrest: Code(s): I46.9 - Cardiac arrest, cause unspecified Status: Acute Assessment and Plan: * presumably precipitated by aspiration * now has a tracheostomy * remains on mechanical ventilation (6) Encephalopathy: Code(s): G93.40 - Encephalopathy, unspecified Status: Acute Assessment and Plan: * things look about the same. Subjective Date/time seen: 11/17/19 10:50 Interval history: the patient is resting comfortably in bed on the ventilator. Not much interaction. Review of Systems Cardiovascular: Cardiovascular: Reports no additional cardiovascular complaints Respiratory: Respiratory: Reports no additional respiratory complaints Gastrointestinal: Gastrointestinal: Reports no additional gastrointestinal complaints Genitourinary: Genitourinary: Reports no additional male genitourinary complaints Exam Narrative: Exam Narrative: Well developed well-nourished male lying in hospital bed on the ventilator. Skin is warm and dry without rash. Lungs are symmetric and coarse. Heart regular Rate and rhythm no rub or gallop. Extremities show 2+ presacral edema. Abdomen bowel sounds are hypoactive. Objective Data Vital Signs Vital Signs: Vital Signs - 24 hr 11/16/19 10:55 11/16/19 11:00 11/16/19 11:15 Temperature Pulse Rate 110 H 113 H 120 H Respiratory Rate Blood Pressure 91/53 L 95/61 L 103/71 Pulse Oximetry 11/16/19 11:30 11/16/19 11:37 11/16/19 11:45 Temperature Pulse Rate 114 H 110 H 112 H Respiratory Rate Blood Pressure 103/84 84/49 L Pulse Oximetry 100 11/16/19 12:00 11/16/19 12:15 11/16/19 12:30 Temperature 36.9 C Pulse Rate 110 H 112 H 114 H Respiratory Rate 28 H Blood Pressure 86/66 L 91/59 L 103/50 L Pulse Oximetry 100 11/16/19 12:45 11/16/19 12:56 11/16/19
--- NOTE | 2019-11-17 10:50 | PM.PNNEP ---
Progress Note: A&P Assessment and Plan (1) ESRD (end stage renal disease) on dialysis: Code(s): N18.6 - End stage renal disease; Z99.2 - Dependence on renal dialysis Status: Acute Assessment and Plan: HD Done yesterday. However only 700cc of fluid was able to be removed. Will try dry ultrafiltration today to see if we can get more fluid off. He gets a lot of fluid with this TPN every day. So we are following further behind. Overall prognosis is grim. Family discussions continue. (2) Gastric perforation: Code(s): K25.5 - Chronic or unspecified gastric ulcer with perforation Status: Acute Assessment and Plan: as noted by recent CT imaging complicated by perisplenic abscess s/p drain placement by IR Yesterday, imaging still demonstrated gastric leak still present He does have some bowel sounds now. Getting TPN for nutrition (3) Peritonitis (acute) generalized: Code(s): K65.0 - Generalized (acute) peritonitis Status: Acute Assessment and Plan: completed 2 week course of antifungal therapy (4) Hyponatremia: Onset Date: Unknown Code(s): E87.1 - Hypo-osmolality and hyponatremia Status: Acute Assessment and Plan: stable at this time sodium running in the mid too high 120s. continue to follow (5) Cardiorespiratory arrest: Code(s): I46.9 - Cardiac arrest, cause unspecified Status: Acute Assessment and Plan: presumably precipitated by aspiration now has a tracheostomy remains on mechanical ventilation (6) Encephalopathy: Code(s): G93.40 - Encephalopathy, unspecified Status: Acute Assessment and Plan: things look about the same. Subjective Date/time seen: 11/17/19 10:50 Interval history: the patient is resting comfortably in bed on the ventilator. Not much interaction. Review of Systems Cardiovascular: Cardiovascular: Reports no additional cardiovascular complaints Respiratory: Respiratory: Reports no additional respiratory complaints Gastrointestinal: Gastrointestinal: Reports no additional gastrointestinal complaints Genitourinary: Genitourinary: Reports no additional male genitourinary complaints Exam Narrative: Exam Narrative: Well developed well-nourished male lying in hospital bed on the ventilator. Skin is warm and dry without rash. Lungs are symmetric and coarse. Heart regular Rate and rhythm no rub or gallop. Extremities show 2+ presacral edema. Abdomen bowel sounds are hypoactive. Objective Data Vital Signs Vital Signs: Vital Signs - 24 hr 11/16/19 10:55 11/16/19 11:00 11/16/19 11:15 Temperature Pulse Rate 110 H 113 H 120 H Respiratory Rate Blood Pressure 91/53 L 95/61 L 103/71 Pulse Oximetry 11/16/19 11:30 11/16/19 11:37 11/16/19 11:45 Temperature Pulse Rate 114 H 110 H 112 H Respiratory Rate Blood Pressure 103/84 84/49 L Pulse Oximetry 100 11/16/19 12:00 11/16/19 12:15 11/16/19 12:30 Temperature 36.9 C Pulse Rate 110 H 112 H 114 H Respiratory Rate 28 H Blood Pressure 86/66 L 91/59 L 103/50 L Pulse Oximetry 100 11/16/19 12:45 11/16/19 12:56 11/16/19 13:00 Temperature 36.5 C Pulse Rate 114 H 115 H 113 H Respiratory Rate 29 H Blood Pressure 91/69 L 101/51 L 103/51 L Pulse Oximetry 100 11/16/19 14:00 11/16/19 14:40 11/16/19 14:50 Temperature Pulse Rate 102 H 113 H 110 H Respiratory Rate 30 H 30 H Blood Pressure 104/48 L Pulse Oximetry 100 100 11/16/19 15:00 11/16/19 16:00 11/16/19 17:11 Temperature 36.9 C Pulse Rate 111 H 94 110 H Respiratory Rate 30 H 23 H Blood Pressure 101/47 L Pulse Oximetry 93 100 11/16/19 18:00 11/16/19 19:17 11/16/19 19:20 Temperature Pulse Rate 94 91 95 Respiratory Rate 20 18 Blood Pressure 105/52 L Pulse Oximetry 100 99 11/16/19 19:24 11/16/19 20:00 11/16/19 22:00 Temperature 37.3 C Puls
--- NOTE | 2019-11-17 11:00 | PCDIET ---
Nutrition Follow-Up Complete: Nutrition Diagnosis: Inadequate oral intake related to oral intubation as evidenced by NPO status. Nutrition Goal: Patient to meet estimated nutritional needs. Goal in progress. Patient receiving Clinimix E 5/15 at 80mL/hr with 250mL 20% lipids every 72 hours. Gastrograffin study showed continued leakage. Plan for dry UF today, as only 700mL were removed yesterday (11/16/19). Last recorded weight is 75.7 kg which is increased from last review. Bowel Motility: BM x 4. Labs Reviewed: Hgb (8.1), Hct (24.9), Glu (163), BUN (45), Cr (1.8), Na (129), Alb (1.9), Ade Ca (8.58), TG (97) Meds Noted: Albumin, Albuterol, Fentanyl, Heparin, Novolog, Levemir, Atrovent, Midodrine, Protonix, Vancomycin Additional Notes: Multiple wounds reported. RN to replace FMS. Nutrition Monitoring and Evaluation: Follow up every Saturday/Saturday. Follow daily in ICU rounds.
--- NOTE | 2019-11-17 11:55 | WPDINFPN2 ---
Progress Note: A&P Assessment and Plan (1) Gastric perforation: Code(s): K25.5 - Chronic or unspecified gastric ulcer with perforation Status: Acute Assessment and Plan: 1. Gastric perforation leading to posterior abscess with Enterocccus. The perforation has not yet healed by dye study 2. Past Linda peritonitis, treated successfully 3. MSOF REC Vanc monotherapy # 7 / 10 days, PharmD dosing, trough is appropriate. Off other antimicrobials. Very poor prognosis. Subjective Date/time seen: 11/17/19 11:55 Interval history: non verbal, on vent/trach. Exam Narrative: Exam Narrative: afebrile Const: General: no acute distress Resp: Effort & Inspection: normal respiratory effort Auscultation: rales and diminished lung sounds Cardio: Rate: regular rate Rhythm: regular rhythm Heart sounds: no murmurs GI: Inspection: non-distended GI Palp: Yes Soft to palpation and No Tenderness to palpation present (GI) Objective Data Vital Signs Vital Signs: Vital Signs - 24 hr 11/16/19 12:00 11/16/19 12:15 11/16/19 12:30 Temperature 36.9 C Pulse Rate 110 H 112 H 114 H Respiratory Rate 28 H Blood Pressure 86/66 L 91/59 L 103/50 L Pulse Oximetry 100 11/16/19 12:45 11/16/19 12:56 11/16/19 13:00 Temperature 36.5 C Pulse Rate 114 H 115 H 113 H Respiratory Rate 29 H Blood Pressure 91/69 L 101/51 L 103/51 L Pulse Oximetry 100 11/16/19 14:00 11/16/19 14:40 11/16/19 14:50 Temperature Pulse Rate 102 H 113 H 110 H Respiratory Rate 30 H 30 H Blood Pressure 104/48 L Pulse Oximetry 100 100 11/16/19 15:00 11/16/19 16:00 11/16/19 17:11 Temperature 36.9 C Pulse Rate 111 H 94 110 H Respiratory Rate 30 H 23 H Blood Pressure 101/47 L Pulse Oximetry 93 100 11/16/19 18:00 11/16/19 19:17 11/16/19 19:20 Temperature Pulse Rate 94 91 95 Respiratory Rate 20 18 Blood Pressure 105/52 L Pulse Oximetry 100 99 11/16/19 19:24 11/16/19 20:00 08/31/20 22:00 Temperature 37.3 C Pulse Rate 97 91 95 Respiratory Rate 25 H 18 18 Blood Pressure 99/55 L 98/55 L Pulse Oximetry 100 96 11/16/19 23:19 11/17/19 00:00 11/17/19 01:34 Temperature 36.6 C Pulse Rate 91 89 87 Respiratory Rate 20 29 H Blood Pressure 94/47 L Pulse Oximetry 99 96 99 11/17/19 01:41 11/17/19 02:00 11/17/19 04:00 Temperature 37.1 C Pulse Rate 86 99 91 Respiratory Rate 27 H 22 H 22 H Blood Pressure 95/55 L 104/57 L Pulse Oximetry 64 L 94 11/17/19 04:01 11/17/19 06:00 11/17/19 08:00 Temperature 36.8 C Pulse Rate 94 91 91 Respiratory Rate 32 H 28 H Blood Pressure 112/52 L 114/61 Pulse Oximetry 100 90 100 11/17/19 08:02 11/17/19 08:06 11/17/19 08:09 Temperature Pulse Rate 90 90 87 Respiratory Rate 19 23 H Blood Pressure Pulse Oximetry 100 11/17/19 10:00 11/17/19 10:43 Temperature Pulse Rate 98 94 Respiratory Rate 23 H Blood Pressure 123/53 L Pulse Oximetry 100 100 Intake/Output Intake/Output: Intake & Output 11/14/19 11/15/19 11/16/19 11/17/19 23:59 23:59 23:59 23:59 Intake Total 2565 2355 2579 225 Output Total 70 147 1000 110 Balance 2495 2208 1579 115 Meds/Results Medications: Active Medications Generic Name Dose Route Start Last Admin Trade Name Guichoq PRN Reason Stop Dose Admin Albuterol 2.5 mg 10/29/19 11:48 11/16/19 08:40 Albuterol Sulf Neb 2.5mg/0.5ml INHALATION 2.5 mg Q4HRT PRN Administration Wheezing or high peak pressure Alteplase, Recombinant 2 mg 11/14/19 07:02 11/14/19 07:56 Cathflo Activase IV PUSH 2 mg ONCE PRN Administration Line Occlusion Bisacodyl 10 mg 10/14/19 17:03 10/16/19 17:51 Dulcolax Suppository RECTAL 10 mg QAM PRN Administration Constipation Dextrose 12.5 gm 10/31/19 09:03 11/14/19 08:42 Dextrose 50% Syringe IV PUSH 12.5 gm PRN PRN Administration Hypoglycemia Protocol Glucagon 1 mg 10/31/19 09:03 11/14/19 07:56 Glucagon For
[2019-11-17 11:56] LABS: Partial Thromboplastin Time 74.8 SECONDS (22.3-36.8)
[2019-11-17 12:51] LABS: Glucose Point of Care 216 (65-105)
--- NOTE | 2019-11-17 13:13 | WPDINTPN ---
Progress Note: A&P Assessment and Plan (1) Acute respiratory failure: Code(s): J96.00 - Acute respiratory failure, unspecified whether with hypoxia or hypercapnia Status: Acute Assessment and Plan: - patient on mechanical ventilation - patient now status post tracheostomy on 10/30/2019 - patient had a a ultrasound-guided thoracentesis done on 10/26 on right and 150 mL fluid was removed which was negative for any Gram stain or culture. - patient on ASV mode of ventilation and tolerating, 30% FiO2 and peep of 5 - Continue physical and occupational therapy to work with the patient - appreciate pulmonology evaluation and recommendation (2) Severe sepsis: Code(s): A41.9 - Sepsis, unspecified organism; R65.20 - Severe sepsis without septic shock Status: Acute Assessment and Plan: RESOLVED - status post successful treatment of [place] peritonitis with anti fungal therapy 11/06/2019: CT chest/abdomen /pelvis showed perforation of the posterior fundus of the stomach with splenic infarct and fluid collection , status post CT-guided placement of a drain with purulent drainage - cultures from abscess on the posterior aspect of the stomach growing Enterococcus, - leukocytosis persists, ID following, continue Vancomycin #09/24 - 11/16/2019 abdominal x-ray with water-soluble contrast showed persistent extravasation of contrast to the defect in the gastric fundus with drainage by the left upper quadrant percutaneous drain (3) Peritonitis: Onset Date: ~10/2019 Code(s): K65.9 - Peritonitis, unspecified Status: Acute Assessment and Plan: status post successful treatment of Linda peritonitis - status post removal of peritoneal dialysis catheter on 10/21/2019, Catheter and peritoneal fluid sent for culture - SILVA drains x1 draining minimal amount of serosanguineous fluid, surgery following the patient. (4) Aspiration pneumonia: Code(s): J69.0 - Pneumonitis due to inhalation of food and vomit Status: Acute Assessment and Plan: completed course of antibiotics (5) Encephalopathy: Code(s): G93.40 - Encephalopathy, unspecified Status: Acute Assessment and Plan: - was improving, normal patient only opens his eyes intermittently but does not follow simple commands - dropped his hemoglobin was no obvious bleed, patient on heparin infusion, CT scan of the brain on 11/15/2019: Unchanged mild scattered white matter hypoattenuation consistent with chronic small-vessel ischemic disease. No acute intracranial process. Increasing small left and large right otomastoiditis effusion - patient is off all sedation - encephalopathy likely multifactorial related to metabolic /uremic encephalopathy, infectious encephalopathy, medication related, critical care encephalopathy - EEG was done on 10/20/2019 and discussed with Neurology, EEG had significant slowing, likely related to severe encephalopathy. No epileptiform discharges were seen - patient did have a CT scan of the brain on 10/18/2019: was negative for any acute intracranial pathology (6) Cardiorespiratory arrest: Code(s): I46.9 - Cardiac arrest, cause unspecified Status: Acute Assessment and Plan: PEA arrest on 10/13/2019 likely due to aspiration, ROSC after 1 round of epinephrine - post arrest pt was following commands and so did not require hypothermia protocol (7) Colitis: Code(s): K52.9 - Noninfective gastroenteritis and colitis, unspecified Status: Acute Assessment and Plan: RESOLVED (8) ESRD (end stage renal disease) on dialysis: Code(s): N18.6 - End stage renal disease; Z99.2 - Dependence on renal dialysis Status: Acute Assessment and Plan: patient with end-stage renal disease on peritoneal dialysis, FUNGAL PERITONITIS - removal of peritoneal dialysis catheter and insertion of right IJ tunnel di
--- NOTE | 2019-11-17 15:46 | WPDCN ---
Assessment and Plan Additional Plan 1. History of gastric perforation with peritonitis leading to posterior abscess with Enterococcus. Currently on vancomycin day 3 of 10 days therapy. continue current care. 2. History of Linda peritonitis successfully treated with antifungal therapy currently of antifungal therapy. 3. Chronic respiratory failure tracheostomy in place. HPI Data of Consult Date/Time: 11/17/19 15:46 Requesting Physician: Kvng Arizmendi MD Primary Care Provider: Eric Xiao MD Consult Narrative Narrative: Ángel Fung is a 78 year old male Review of Systems Review of Systems: All systems reviewed & are unremarkable except as noted in HPI and below Gastrointestinal: Gastrointestinal: Reports nausea Integumentary/Breasts: Skin/Breast: Reports wounds PMFSH Past Medical History Medical History Anemia of chronic disease Arthritis Back pain Bladder tumor Resected 09/15/2019 CKD stage 5 due to type 2 diabetes mellitus (Unknown) Coronary artery disease (Unknown) With history of stent in 2008 and 2014 Diabetic peripheral neuropathy End-stage renal disease on peritoneal dialysis Managed by Dr. Lauren Glaucoma Hearing loss With bilateral hearing aids Hyperlipidemia Hypertension (Unknown) Hypothyroidism (Unknown) Hypothyroidism Insulin dependent type 2 diabetes mellitus Myocardial infarct Osteomyelitis (~05/2015) Peripheral arterial disease History of multiple bilateral lower extremity stents. Peritonitis (acute) generalized Type 2 diabetes mellitus (Unknown) Urethral stricture Status post dilatation 09/15/2019 Surgical History Surgical History Amputation of fifth toe of right foot (~05/2015) History of colonoscopy with polypectomy Reportedly had a Colonoscopy in 2019 due to his chronic diarrhea and had findings of a cancerous polyp that was completely removed during the colonoscopy. This was performed in [place]. History of heart artery stent (~10/2014) 2008 and 2014 History of surgical removal of skin lesion Top of head and face. Basal cell carcinoma History of transurethral destruction of bladder lesion 09/15/2019 History of vascular surgery Bilateral lower extremity stents. Total of 4 stents in each leg Status post cataract extraction Status post cystourethroscopy with dilation of urethral stricture 09/15/2019 Family History Family History Mother , Age 87 [place] Heart disease Diabetes mellitus Cataract Father , Age 69 from Cancer Heart disease Lung cancer Sibling Diabetes mellitus Social History Social History Social History: The patient is and lives with his in [place]. They have 2 children. He served in [employer] for 3 years in [employer] and is retired from factory work. He smoked up to 2 packs of cigarettes per day for about 17 years and quit in the 1970s. No alcohol or illicit substance use. He designates his , Dena, as his surrogate decision maker. Smoking packs per day: 2 Smoking cigarettes per day: 40.0 Years smoked: 17 Smoking pack-years: 34.00 Smoking status: Former smoker Tobacco type: cigarettes Alcohol intake: never Substance use: never Gender identity (if verbalized by the patient): Male Spiritual care concerns: No Meds Home Medications and Allergies Home Medications Medication Instructions Recorded Confirmed Type B complex-vitamin C-folic acid 0.8 1 tablet PO DAILY 03/24/19 10/13/19 History mg tablet carvedilol 25 mg tablet 25 mg PO BID 03/24/19 10/13/19 History clopidogrel 75 mg tablet 75 mg PO DAILY 03/24/19 10/13/19 History fluticasone propionate 50 2 spray NASAL DAILY 03/24/19 10/13/19 History mcg/actuation nasal spr
--- NOTE | 2019-11-17 16:54 | PM.IMPN ---
Progress Note: A&P Assessment and Plan (1) Gastric perforation: Code(s): K25.5 - Chronic or unspecified gastric ulcer with perforation Status: Acute Assessment and Plan: 11/17/19 16:54 Interval history: 78-year-old male with history of end-stage renal disease on peritoneal dialysis presented emergency department had a cardiac arrest ROSC after 1 round of epinephrine per protocol ROSC, with shortness of breath and hypoxic patient was intubated currently on vent, patient may have aspirated pneumonia, patient in septic shock and on pressor, patient being treated with Levaquin, vancomycin and Flagyl, discussed with reinforcing steel placer prognosis is poor we appreciate reinforcing steel placer, patient is seen by Dr. Aguilar nephrology for peritoneal dialysis, Composition Board Press Operator had spoken with patient's , she would like to keep full code and continue to treat the patient. septic shock resolved and patient is off Levophed, septic shock most likely secondary to aspiration pneumonia possibly peritonitis and treated with Flagyl cefepime and ceftazidime intraperitoneal by nephrology, patient is his leukocytosis etiology uncertain seen by Dr. Rowe and reinforcing steel placer, stopped all antibiotic and has started the patient vancomycin and aztreonam, meanwhile patient was seen by surgery and peritoneal dialysis catheter was removed and now patient is on hemodialysis, patient intubated having regular dialysis, unable to wean the patient off the ventilator,pt has PEG and Sp trache. From my previous notes. Nephrology, and discussed with reinforcing steel placer prognosis is poor now GI abscess more difficult to transfer the patient to LTAC Long history, family reluctant on hospice. Pt has PEG and Trache complicated with drain for perforation of the posterior fundus of the stomach with splenic infarct and fluid collection and drain placement ID ICU, surgery and nephrology rounding on patient there are no new issues will continue follow patient today patient's present in the room, earlier patient spoke with reinforcing steel placer and now patient is DNR, had a long discussion with the patient's , she is considering withdrawing care but not today. patient has a poor prognosis., on 11/15 I miss wrote the patient was taken off the ventilator and family had withdrawn the care there was not right patient family has continue current treatment and patient is on ventilator until further recommendation from the family, will continue present management patient is seen by reinforcing steel placer. (2) Severe sepsis: Code(s): A41.9 - Sepsis, unspecified organism; R65.20 - Severe sepsis without septic shock Status: Acute Assessment and Plan: Likely secondary to peritonitis, his dialysis catheter was removed however now he has a gastric perforation leaking into the peritoneum. See above ID rounding (3) ESRD (end stage renal disease) on dialysis: Code(s): N18.6 - End stage renal disease; Z99.2 - Dependence on renal dialysis Status: Acute Assessment and Plan: Nephrology rounding (4) Ventilator dependence: Code(s): Z99.11 - Dependence on respirator [ventilator] status Status: Acute Assessment and Plan: Icu rounding Subjective Date/time seen: 11/17/19 16:54 Interval history: 78-year-old male with history of end-stage renal disease on peritoneal dialysis presented emergency department had a cardiac arrest ROSC after 1 round of epinephrine per protocol ROSC, with shortness of breath and hypoxic patient was intubated currently on vent, patient may have aspirated pneumonia, patient in septic shock and on pressor, patient being treated with Levaquin, vancomycin and Flagyl, discussed with reinforcing steel placer prognosis is poor we appreciate reinforcing steel placer, patient is seen by Dr. Aguilar nephrology for peritoneal dialysis, Composition Board Press Operator had spoken with patient's , she would like to keep full code and continue to treat the patient. septic shock resolved and patient
[2019-11-17 17:48] LABS: Glucose Point of Care 204 (65-105)
[2019-11-17 17:52] LABS: Partial Thromboplastin Time 73.6 SECONDS (22.3-36.8)
[2019-11-17 20:09] LABS: Glucose Point of Care 181 (65-105)
[2019-11-17] MEDS: HEPARIN SODIUM 1,000 UNITS/ML VIAL 6000 UNITS (21:21)
[2019-11-17 23:23] LABS: Glucose Point of Care 189 (65-105)
[2019-11-18] VITALS (47 sets, daily range): BP systolic 51–137; BP diastolic 35–99; PULSE 87–117; RESP 19–34; TEMP 35.5–37.2; O2SAT 96–100
--- NOTE | 2019-11-18 01:50 | PCRCNOTE ---
Window of time for administration has passed. See next scheduled administration. Dialysis was in progress when RT arrived at 2014
[2019-11-18] MEDS: IPRATROPIUM BR 0.02% INH SOLN 0.5 MG/2.5 ML VIAL INHALATION ×4 (01:52→19:44)
[2019-11-18 04:39] LABS: Alveolar/Arterial O2 Gradient 76.1 mmHg; Base Excess ABG -1.9 mEq/l (+/-2.0); Carboxyhemoglobin 0.3 % THb (0-2.0); Fractional Inspired Oxygen 30 %; HCO3 ABG 20.9 mEq/l (22.0-26.0); Methemoglobin ABG 0.4 %THb (0-1.5); Oxygen Content ABG 18.6 %vol (16.0-22.0); Oxyhemoglobin 96.6 % THb (90.0-100.0); PCO2 ABG 30.4 mmHg (35.0-45.0); PO2 ABG 102.1 mmHg (80.0-100.0); Reduced Hemoglobin 2.7 %THb (0-5.0); Total Hemoglobin 13.6 g/dL (12.0-18.0); pH ABG 7.456 (7.350-7.450)
[2019-11-18 04:40] LABS: Device VENTILATOR; Modified Allen's Test Pass; Site Drawn RIGHT RADIAL
[2019-11-18 04:40] LABS: Hematocrit 24.5 % (42.0-52.0); Hemoglobin 8.2 g/dL (14.0-18.0); Mean Corpuscular HGB Conc 33.5 g/dl (32-36); Mean Corpuscular Hemoglobin 34.3 pg (26-34); Mean Corpuscular Volume 102.5 fl (80-100); Mean Platelet Volume 11.5 fl (7.4-10.4); Platelet Count Result 243 k/mm3 (150-375); Red Blood Count 2.39 M/mm3 (4.6-6.20); Red Cell Distribution Width 21.2 % (11.5-14.5); White Blood Count 15.2 K/mm3 (4.5-10.0)
[2019-11-18 04:41] LABS: Arterial Blood Gas PEEP 5 cmH2O; Arterial Blood Gas Vent Mode ASV
[2019-11-18 05:03] LABS: Partial Thromboplastin Time 63.8 SECONDS (22.3-36.8)
[2019-11-18] MEDS: SUCRALFATE SUSP 100 MG/ML 10 ML UDC 1000 MG PO ×4 (05:45→23:15)
[2019-11-18] MEDS: CENTRAL LINE FLUSH 10 ML IV PUSH ×3 (05:45→19:58)
[2019-11-18] MEDS: HEPARIN SODIUM 5,000 UNITS/ML VIAL 2500 UNITS IV PUSH ×2 (05:45→18:37)
[2019-11-18 05:53] LABS: Glucose Point of Care 157 (65-105)
[2019-11-18] MEDS: MIDODRINE HCL 10 MG TABLET PO ×3 (08:13→17:57)
[2019-11-18] MEDS: INSULIN DETEMIR 100 UNITS/ML 15 UNITS SUB-Q ×2 (08:15→19:59)
[2019-11-18] MEDS: PANTOPRAZOLE SODIUM IV 40 MG VIAL IV PUSH ×2 (08:16→19:56)
[2019-11-18] MEDS: SILVERGEL (ELTA) 45 ML 1 APPLIC TOPICAL (08:16)
[2019-11-18] MEDS: NEOMYCIN/POLYMYXIN/BACITRACIN OINTMENT 15 GM TUBE 1 APPLIC TOPICAL (08:16)
[2019-11-18 11:07] LABS: Glucose Point of Care 102 (65-105)
--- NOTE | 2019-11-18 11:08 | PCDIET ---
ICU Rounding Note: Patient continues on Clinimix E 07/30 at 80mL/hr with 250mL 20% lipids every 3 days. Last recorded weight is 74.6kg which is decreased from last review. -I/O. Patient had 3L UF yesterday with plan for dialysis again today. Bowel Motility: BM x 1 on 11/17/19. FMS replaced, per wound nurse recommendation. Labs Reviewed: Hgb (8.2), Hct (24.5), Glu (157) Meds Noted: Albumin, Albuterol, Fentanyl, Heparin, Novolog (held today), Levemir, Atrovent, Synthroid, Midodrine, Protonix, Vancomycin Additional Notes: Multiple skin issues remain. Left arm weeping. Wound nurse following. Following daily in ICU rounds. Assessing/reassessing every Saturday/Saturday.
[2019-11-18] MEDS: HEPARIN SOD/D5W 100 UNITS/ML 25,000 UNITS/250 ML BAG 10 UNITS IV CONT (11:37)
[2019-11-18 11:56] LABS: Partial Thromboplastin Time 84.8 SECONDS (22.3-36.8)
[2019-11-18] MEDS: HEPARIN SODIUM 1,000 UNITS/ML VIAL 5000 UNITS (13:01)
--- NOTE | 2019-11-18 13:04 | WPDINFPN2 ---
Progress Note: A&P Assessment and Plan (1) Gastric perforation: Code(s): K25.5 - Chronic or unspecified gastric ulcer with perforation Status: Acute Assessment and Plan: 1. Gastric perforation leading to posterior abscess with Enterocccus. The perforation has not yet healed by dye study. WBC is slowly declining 2. Past Linda peritonitis, treated successfully 3. [facility] REC Vanc monotherapy # 8 / 10 days, PharmD dosing, trough is appropriate. Off other antimicrobials. Very poor prognosis. Subjective Date/time seen: 11/18/19 13:04 Interval history: on HD, trach and vent ongoing Exam Narrative: Exam Narrative: afebrile Const: General: no acute distress Resp: Effort & Inspection: normal respiratory effort Auscultation: rales Other: vesicular Cardio: Rate: tachycardic Rhythm: regular rhythm Heart sounds: no murmurs GI: Inspection: non-distended GI Palp: Yes Firmness to palpation present (GI), Yes Tenderness to palpation present (GI) and No Guarding due to palpation present (GI) Other: drain thin light yellow. Output 50 cc, but zero cc prior day Objective Data Vital Signs Vital Signs: Vital Signs - 24 hr 11/17/19 14:00 11/17/19 14:01 11/17/19 14:30 Temperature Pulse Rate 89 87 89 Respiratory Rate 24 H Blood Pressure 131/58 L Pulse Oximetry 100 100 11/17/19 14:33 11/17/19 14:45 11/17/19 16:00 Temperature 37.2 C Pulse Rate 89 88 108 H Respiratory Rate 27 H 23 H 26 H Blood Pressure 96/85 L Pulse Oximetry 100 11/17/19 17:29 11/17/19 18:00 11/17/19 18:09 Temperature 35.9 C L Pulse Rate 94 101 H 90 Respiratory Rate 30 H Blood Pressure 115/53 L 113/51 L Pulse Oximetry 100 99 11/17/19 18:15 11/17/19 18:30 11/17/19 18:45 Temperature Pulse Rate 95 104 H 100 Respiratory Rate Blood Pressure 115/53 L 113/81 105/54 L Pulse Oximetry 11/17/19 19:00 11/17/19 19:15 11/17/19 19:30 Temperature Pulse Rate 105 H 110 H 109 H Respiratory Rate Blood Pressure 99/60 L 93/56 L 96/68 L Pulse Oximetry 11/17/19 19:45 11/17/19 20:00 11/17/19 20:15 Temperature 37.2 C Pulse Rate 110 H 110 H 110 H Respiratory Rate 29 H Blood Pressure 94/50 L 102/81 103/62 Pulse Oximetry 100 100 11/17/19 20:30 11/17/19 20:35 11/17/19 20:45 Temperature Pulse Rate 108 H 107 H 107 H Respiratory Rate Blood Pressure 87/56 L 104/49 L 105/73 Pulse Oximetry 11/17/19 21:00 11/17/19 21:10 11/17/19 21:15 Temperature 37.1 C Pulse Rate 107 H 114 H 105 H Respiratory Rate 24 H Blood Pressure 119/54 L 100/59 L 99/70 L Pulse Oximetry 100 11/17/19 22:00 11/17/19 23:20 11/18/19 00:00 Temperature 36.6 C Pulse Rate 97 100 110 H Respiratory Rate 28 H 28 H Blood Pressure 154/89 H 111/58 L Pulse Oximetry 99 100 97 11/18/19 01:53 11/18/19 02:00 11/18/19 04:00 Temperature 36.9 C Pulse Rate 93 93 88 Respiratory Rate 28 H 24 H 24 H Blood Pressure 116/66 114/55 L Pulse Oximetry 98 96 11/18/19 04:36 11/18/19 04:59 11/18/19 06:00 Temperature Pulse Rate 92 91 101 H Respiratory Rate 28 H 27 H Blood Pressure 123/72 Pulse Oximetry 100 100 11/18/19 07:51 11/18/19 07:52 11/18/19 08:00 Temperature 36.9 C Pulse Rate 88 89 93 Respiratory Rate 29 H 29 H Blood Pressure 114/61 Pulse Oximetry 100 100 11/18/19 08:45 11/18/19 08:58 11/18/19 09:00 Temperature 36.9 C Pulse Rate 87 89 90 Respiratory Rate 26 H Blood Pressure 118/65 124/71 121/52 L Pulse Oximetry 97 11/18/19 09:15 11/18/19 09:20 11/18/19 09:30 Temperature Pulse Rate 104 H 107 H 103 H Respiratory Rate Blood Pressure 51/35 L 87/48 L 100/52 L Pulse Oximetry 11/18/19 09:45 11/18/19 10:00 11/18/19 10:15 Temperature Pulse Rate 98 113 H 111 H Respiratory Rate Blood Pressure 108/76 101/68 109/80 Pulse Oximetry 11/18/19 10:30 11/18/19 10:45 11/18/19 10:54 Temperature Pulse Rate 110 H 117 H 90 Respiratory Rate B
--- NOTE | 2019-11-18 13:51 | P.PNINT_ITS ---
Progress Note: A&P Assessment and Plan (1) Acute respiratory failure: Code(s): J96.00 - Acute respiratory failure, unspecified whether with hypoxia or hypercapnia Status: Acute Assessment and Plan: - patient on mechanical ventilation - patient now status post tracheostomy on 10/30/2019 - patient had a a ultrasound-guided thoracentesis done on 10/26 on right and 150 mL fluid was removed which was negative for any Gram stain or culture. - patient on ASV mode of ventilation and tolerating, 30% FiO2 and peep of 5 - Continue physical and occupational therapy to work with the patient - appreciate pulmonology evaluation and recommendation (2) Severe sepsis: Code(s): A41.9 - Sepsis, unspecified organism; R65.20 - Severe sepsis without septic shock Status: Acute Assessment and Plan: RESOLVED - status post successful treatment of Linda peritonitis with anti fungal therapy 11/06/2019: CT chest/abdomen /pelvis showed perforation of the posterior fundus of the stomach with splenic infarct and fluid collection , status post CT-guided placement of a drain with purulent drainage - cultures from abscess on the posterior aspect of the stomach growing Enterococcus, - leukocytosis persists, ID following, continue Vancomycin #10/25 - 11/16/2019 abdominal x-ray with water-soluble contrast showed persistent extravasation of contrast to the defect in the gastric fundus with drainage by the left upper quadrant percutaneous drain (3) Peritonitis: Onset Date: ~10/2019 Code(s): K65.9 - Peritonitis, unspecified Status: Acute Assessment and Plan: status post successful treatment of Linda peritonitis - status post removal of peritoneal dialysis catheter on 10/21/2019, Catheter and peritoneal fluid sent for culture - SILVA drains x1 draining minimal amount of serosanguineous fluid, surgery following the patient. (4) Aspiration pneumonia: Code(s): J69.0 - Pneumonitis due to inhalation of food and vomit Status: Acute Assessment and Plan: completed course of antibiotics (5) Encephalopathy: Code(s): G93.40 - Encephalopathy, unspecified Status: Acute Assessment and Plan: - was improving, normal patient only opens his eyes intermittently but does not follow simple commands - dropped his hemoglobin was no obvious bleed, patient on heparin infusion, CT scan of the brain on 11/15/2019: Unchanged mild scattered white matter hypoattenuation consistent with chronic small-vessel ischemic disease. No acute intracranial process. Increasing small left and large right otomastoiditis effusion - patient is off all sedation - encephalopathy likely multifactorial related to metabolic /uremic encephalopathy, infectious encephalopathy, medication related, critical care encephalopathy - EEG was done on 10/20/2019 and discussed with Neurology, EEG had significant slowing, likely related to severe encephalopathy. No epileptiform discharges were seen - patient did have a CT scan of the brain on 10/18/2019: was negative for any acute intracranial pathology (6) Cardiorespiratory arrest: Code(s): I46.9 - Cardiac arrest, cause unspecified Status: Acute Assessment and Plan: PEA arrest on 10/13/2019 likely due to aspiration, ROSC after 1 round of epinephrine - post arrest pt was following commands and so did not require hypothermia protocol (7) Colitis: Code(s): K52.9 - Noninfective gastroenteritis and colitis, unspecified Status: Acute
[2019-11-18 15:39] LABS: Triglycerides 89 mg/dL (<150)
--- NOTE | 2019-11-18 15:59 | PM.PNNEP ---
Progress Note: A&P Assessment and Plan (1) ESRD (end stage renal disease) on dialysis: Code(s): N18.6 - End stage renal disease; Z99.2 - Dependence on renal dialysis Status: Acute Assessment and Plan: getting hemodialysis. We will continue removing fluid as tolerated (2) Gastric perforation: Code(s): K25.5 - Chronic or unspecified gastric ulcer with perforation Status: Acute Assessment and Plan: as noted by recent CT imaging complicated by perisplenic abscess s/p drain placement by IR He does have some bowel sounds now. Getting TPN for nutrition (3) Peritonitis (acute) generalized: Code(s): K65.0 - Generalized (acute) peritonitis Status: Acute Assessment and Plan: completed 2 week course of antifungal therapy (4) Hyponatremia: Onset Date: Unknown Code(s): E87.1 - Hypo-osmolality and hyponatremia Status: Acute Assessment and Plan: stable at this time check in a.m. (5) Cardiorespiratory arrest: Code(s): I46.9 - Cardiac arrest, cause unspecified Status: Acute Assessment and Plan: presumably precipitated by aspiration now has a tracheostomy remains on mechanical ventilation (6) Encephalopathy: Code(s): G93.40 - Encephalopathy, unspecified Status: Acute Assessment and Plan: things look about the same. Subjective Date/time seen: 11/18/19 15:59 Interval history: patient was seen earlier today. the patient is resting comfortably in bed on the ventilator. He is on dialysis. His blood pressure did drop once on the machine. He received midodrine. He is getting at35.5degree bath. He is going to get some albumin. seen at 9:20 a.m. He wakens a bit when I call his name. Review of Systems Cardiovascular: Cardiovascular: Reports no additional cardiovascular complaints Respiratory: Respiratory: Reports no additional respiratory complaints Gastrointestinal: Gastrointestinal: Reports no additional gastrointestinal complaints Genitourinary: Genitourinary: Reports no additional male genitourinary complaints Exam Narrative: Exam Narrative: Well developed well-nourished man lying in hospital bed on the ventilator. He looks very weak. Skin is warm and dry without rash. Lungs are symmetric and coarse. Heart regular rate and rhythm no rub or gallop. Abdomen bowel sounds positive soft minimally tender. Extremities 2+ edema. Objective Data Vital Signs Vital Signs: Vital Signs - 24 hr 11/17/19 16:00 11/17/19 17:29 11/17/19 18:00 Temperature 37.2 C 35.9 C L Pulse Rate 108 H 94 101 H Respiratory Rate 26 H 30 H Blood Pressure 96/85 L 115/53 L Pulse Oximetry 100 100 99 11/17/19 18:09 11/17/19 18:15 11/17/19 18:30 Temperature Pulse Rate 90 95 104 H Respiratory Rate Blood Pressure 113/51 L 115/53 L 113/81 Pulse Oximetry 11/17/19 18:45 11/17/19 19:00 11/17/19 19:15 Temperature Pulse Rate 100 105 H 110 H Respiratory Rate Blood Pressure 105/54 L 99/60 L 93/56 L Pulse Oximetry 11/17/19 19:30 11/17/19 19:45 11/17/19 20:00 Temperature 37.2 C Pulse Rate 109 H 110 H 110 H Respiratory Rate 29 H Blood Pressure 96/68 L 94/50 L 102/81 Pulse Oximetry 100 11/17/19 20:15 11/17/19 20:30 11/17/19 20:35 Temperature Pulse Rate 110 H 108 H 107 H Respiratory Rate Blood Pressure 103/62 87/56 L 104/49 L Pulse Oximetry 100 11/17/19 20:45 11/17/19 21:00 11/17/19 21:10 Temperature Pulse Rate 107 H 107 H 114 H Respiratory Rate Blood Pressure 105/73 119/54 L 100/59 L Pulse Oximetry 11/17/19 21:15 11/17/19 22:00 11/17/19 23:20 Temperature 37.1 C Pulse Rate 105 H 97 100 Respiratory Rate 24 H 28 H Blood Pressure 99/70 L 154/89 H Pulse Oximetry 100 99 100 11/18/19 00:00 11/18/19 01:53 11/18/19 02:00 Temperature 36.6 C Pulse Rate 110 H 93 93 Respiratory Rate 28 H 28 H 24 H Bloo
[2019-11-18 16:01] LABS: Glucose Point of Care 72 (65-105)
[2019-11-18 16:43] LABS: Vancomycin Random 10.1 ug/mL (10-20)
--- NOTE | 2019-11-18 16:49 | PM.IMPN ---
Progress Note: A&P Assessment and Plan (1) Gastric perforation: Code(s): K25.5 - Chronic or unspecified gastric ulcer with perforation Status: Acute Assessment and Plan: 11/18/19 16:49 Interval history: 78-year-old male with history of end-stage renal disease on peritoneal dialysis presented emergency department had a cardiac arrest ROSC after 1 round of epinephrine per protocol ROSC, with shortness of breath and hypoxic patient was intubated currently on vent, patient may have aspirated pneumonia, patient in septic shock and on pressor, patient being treated with Levaquin, vancomycin and Flagyl, discussed with it teacher prognosis is poor we appreciate it teacher, patient is seen by Dr. Aguilar nephrology for peritoneal dialysis, [employer] had spoken with patient's , she would like to keep full code and continue to treat the patient. septic shock resolved and patient is off Levophed, septic shock most likely secondary to aspiration pneumonia possibly peritonitis and treated with Flagyl cefepime and ceftazidime intraperitoneal by nephrology, patient is his leukocytosis etiology uncertain seen by Dr. Rowe and it teacher, stopped all antibiotic and has started the patient vancomycin and aztreonam, meanwhile patient was seen by surgery and peritoneal dialysis catheter was removed and now patient is on hemodialysis, patient intubated having regular dialysis, unable to wean the patient off the ventilator,pt has PEG and Sp trache. From my previous notes. Nephrology, and discussed with it teacher prognosis is poor now GI abscess more difficult to transfer the patient to LTAC Long history, family reluctant on hospice. Pt has PEG and Trache complicated with drain for perforation of the posterior fundus of the stomach with splenic infarct and fluid collection and drain placement ID ICU, surgery and nephrology rounding on patient there are no new issues will continue follow patient today patient's present in the room, earlier patient spoke with it teacher and now patient is DNR, had a long discussion with the patient's , she is considering withdrawing care but not today. patient has a poor prognosis., on 11/15 I miss wrote the patient was taken off the ventilator and family had withdrawn the care there was not right patient family has continue current treatment and patient is on ventilator until further recommendation from thefamily, will continue present management patient is seen by it teacher and discussed family is still have not decided take the patient off ventilator, (2) Severe sepsis: Code(s): A41.9 - Sepsis, unspecified organism; R65.20 - Severe sepsis without septic shock Status: Acute Assessment and Plan: Likely secondary to peritonitis, his dialysis catheter was removed however now he has a gastric perforation leaking into the peritoneum. See above ID rounding (3) ESRD (end stage renal disease) on dialysis: Code(s): N18.6 - End stage renal disease; Z99.2 - Dependence on renal dialysis Status: Acute Assessment and Plan: Nephrology rounding (4) Ventilator dependence: Code(s): Z99.11 - Dependence on respirator [ventilator] status Status: Acute Assessment and Plan: Icu rounding Subjective Date/time seen: 11/18/19 16:49 Interval history: 78-year-old male with history of end-stage renal disease on peritoneal dialysis presented emergency department had a cardiac arrest ROSC after 1 round of epinephrine per protocol ROSC, with shortness of breath and hypoxic patient was intubated currently on vent, patient may have aspirated pneumonia, patient in septic shock and on pressor, patient being treated with Levaquin, vancomycin and Flagyl, discussed with it teacher prognosis is poor we appreciate it teacher, patient is seen by Dr. Aguilar nephrology for peritoneal dialysis, [employer] had spoken with patient's , she would like to keep ful
[2019-11-18 18:34] LABS: Partial Thromboplastin Time 69.8 SECONDS (22.3-36.8)
[2019-11-18 23:14] LABS: Glucose Point of Care 71 (65-105)
[2019-11-19] VITALS (25 sets, daily range): BP systolic 98–135; BP diastolic 41–92; PULSE 4–105; RESP 16–35; TEMP 36.6–37.2; O2SAT 97–100
[2019-11-19 01:10] LABS: Partial Thromboplastin Time 78.2 SECONDS (22.3-36.8)
[2019-11-19] MEDS: IPRATROPIUM BR 0.02% INH SOLN 0.5 MG/2.5 ML VIAL INHALATION ×4 (01:56→20:27)
[2019-11-19 04:03] LABS: Alveolar/Arterial O2 Gradient 76.6 mmHg; Base Excess ABG 6.9 mEq/l (+/-2.0); Carboxyhemoglobin 0.3 % THb (0-2.0); Fractional Inspired Oxygen 30 %; HCO3 ABG 30.1 mEq/l (22.0-26.0); Methemoglobin ABG 0.3 %THb (0-1.5); Oxygen Content ABG 15.8 %vol (16.0-22.0); Oxygen Saturation ABG 97.8 % (95.0-100.0); PCO2 ABG 37.8 mmHg (35.0-45.0); PO2 ABG 92.9 mmHg (80.0-100.0); Reduced Hemoglobin 3.4 %THb (0-5.0); Total Hemoglobin 11.6 g/dL (12.0-18.0)
[2019-11-19 04:04] LABS: Device VENTILATOR; Modified Allen's Test Pass; Site Drawn RIGHT RADIAL; pH ABG 7.519 (7.350-7.450)
[2019-11-19 04:05] LABS: Arterial Blood Gas PEEP 5 cmH2O; Arterial Blood Gas Vent Mode ASV
[2019-11-19] MEDS: CENTRAL LINE FLUSH 10 ML IV PUSH ×3 (05:00→20:33)
[2019-11-19] MEDS: SUCRALFATE SUSP 100 MG/ML 10 ML UDC 1000 MG PO ×4 (05:00→23:39)
[2019-11-19 05:08] LABS: Basophils Absolute Auto 0.1 K/mm3 (0.0-0.1); Basophils Percent Auto 1.2 % (0.2-1.2); Eosinophils Absolute Auto 0.3 K/mm3 (0-0.3); Eosinophils Percent Auto 2.5 % (0-4.4); Hematocrit 24.8 % (42.0-52.0); Immature Granulocyte Absolute 0.27 K/mm3 (0.00-0.031); Immature Granulocyte Percent A 2.2 % (0-0.5); Lymphocytes Absolute Auto 2.34 K/mm3 (0.9-3.2); Lymphocytes Percent Auto 19.3 % (18.3-44.2); Mean Corpuscular HGB Conc 32.3 g/dl (32-36); Mean Corpuscular Hemoglobin 33.8 pg (26-34); Mean Corpuscular Volume 104.6 fl (80-100); Mean Platelet Volume 11.2 fl (7.4-10.4); Monocytes Absolute Auto 2.3 K/mm3 (0.1-0.6); Monocytes Percent Auto 19.1 % (2.6-8.5); Neutrophils Absolute Auto 6.8 K/mm3 (1.3-6.7); Neutrophils Percent Auto 55.7 % (45.5-73.1); Platelet Count Result 256 k/mm3 (150-375); Red Blood Count 2.37 M/mm3 (4.6-6.20); Red Cell Distribution Width 21.7 % (11.5-14.5); White Blood Count 12.1 K/mm3 (4.5-10.0)
[2019-11-19 05:19] LABS: Partial Thromboplastin Time 70.2 SECONDS (22.3-36.8)
[2019-11-19 05:20] LABS: Alanine Aminotransferase 65 U/L (4-50); Alkaline Phosphatase 257 U/L (38-126); Anion Gap 5 mmol/L (8-16); Aspartate Amino Transferase 193 U/L (17-59); Bilirubin,Total 0.7 mg/dL (0.2-1.3); Blood Urea Nitrogen 39 mg/dL (9-20); Carbon Dioxide 31 mmol/L (22-30); Chloride 93 mmol/L (98-107); Estimated CRCL calculation 31 ml/min; Estimated Glomerular Filt Rate 45; Glucose 72 mg/dL (75-110); Magnesium 1.9 mg/dL (1.6-2.3); Potassium 4.1 mmol/L (3.4-5.0); Sodium 129 mmol/L (137-145)
[2019-11-19] MEDS: SILVERGEL (ELTA) 45 ML 1 APPLIC TOPICAL (08:09)
[2019-11-19] MEDS: PANTOPRAZOLE SODIUM IV 40 MG VIAL IV PUSH ×2 (08:14→20:32)
[2019-11-19] MEDS: NEOMYCIN/POLYMYXIN/BACITRACIN OINTMENT 15 GM TUBE 1 APPLIC TOPICAL (08:17)
[2019-11-19] MEDS: MIDODRINE HCL 10 MG TABLET PO ×3 (08:18→17:34)
[2019-11-19 08:43] LABS: Hepatitis B Surface Antigen Negative (Negative)
[2019-11-19 08:49] LABS: HAV RESULT Negative (Negative); Hepatitis B Core IgM Result Negative (Negative)
[2019-11-19 08:54] LABS: Glucose Point of Care 87 (65-105)
[2019-11-19 09:00] LABS: Hepatitis C Virus Antibody Negative (Negative)
--- NOTE | 2019-11-19 09:29 | PM.PNNEP ---
Progress Note: A&P Assessment and Plan (1) ESRD (end stage renal disease) on dialysis: Code(s): N18.6 - End stage renal disease; Z99.2 - Dependence on renal dialysis Status: Acute Assessment and Plan: did well in hemodialysis yesterday. Will do another treatment tomorrow. I talked with Dr. Stephenie haider about the possibility of using pressors IV during dialysis to help us get fluid off. (2) Gastric perforation: Code(s): K25.5 - Chronic or unspecified gastric ulcer with perforation Status: Acute Assessment and Plan: as noted by recent CT imaging complicated by perisplenic abscess s/p drain placement by IR He does have some bowel sounds now. Getting TPN for nutrition (3) Peritonitis (acute) generalized: Code(s): K65.0 - Generalized (acute) peritonitis Status: Acute Assessment and Plan: completed 2 week course of antifungal therapy (4) Hyponatremia: Onset Date: Unknown Code(s): E87.1 - Hypo-osmolality and hyponatremia Status: Acute Assessment and Plan: stable at this time Sodium running in the high 120s check in a.m. (5) Cardiorespiratory arrest: Code(s): I46.9 - Cardiac arrest, cause unspecified Status: Acute Assessment and Plan: presumably precipitated by aspiration now has a tracheostomy remains on mechanical ventilation (6) Encephalopathy: Code(s): G93.40 - Encephalopathy, unspecified Status: Acute Assessment and Plan: things look about the same. Subjective Date/time seen: 11/19/19 09:29 Interval history: patient is on the ventilator in the ICU. Opens his eyes and makes eye contact but does not really interact other than that. He looks comfortable on the ventilator Review of Systems Review of Systems: ROS unobtainable: Yes unobtainable due to endotracheal tube Exam Narrative: Exam Narrative: well developed well-nourished gentleman lying in the hospital bed on the ventilator. Skin no rash. Extremities showed 2+ edema pre sacral E Lungs are symmetric and coarse Heart regular rate and rhythm no rub or gallop Abdomen bowel sounds positive soft mildly tender Objective Data Vital Signs Vital Signs: Vital Signs - 24 hr 11/18/19 09:30 11/18/19 09:45 11/18/19 10:00 Temperature Pulse Rate 103 H 98 108 H Respiratory Rate 22 H Blood Pressure 100/52 L 108/76 101/68 Pulse Oximetry 97 11/18/19 10:15 11/18/19 10:30 11/18/19 10:45 Temperature Pulse Rate 111 H 110 H 117 H Respiratory Rate Blood Pressure 109/80 109/62 124/83 Pulse Oximetry 11/18/19 10:54 11/18/19 11:00 11/18/19 11:15 Temperature Pulse Rate 90 109 H 109 H Respiratory Rate Blood Pressure 126/88 108/40 L Pulse Oximetry 100 11/18/19 11:30 11/18/19 11:45 11/18/19 12:00 Temperature 36.6 C Pulse Rate 109 H 111 H 112 H Respiratory Rate 22 H Blood Pressure 114/70 120/51 L 107/55 L Pulse Oximetry 100 11/18/19 12:15 11/18/19 12:30 11/18/19 12:45 Temperature Pulse Rate 111 H 110 H 102 H Respiratory Rate Blood Pressure 105/79 115/73 124/85 Pulse Oximetry 11/18/19 13:00 11/18/19 13:15 11/18/19 13:16 Temperature Pulse Rate 99 96 98 Respiratory Rate 25 H Blood Pressure 118/99 H Pulse Oximetry 100 11/18/19 13:19 11/18/19 13:22 11/18/19 14:00 Temperature 36.5 C Pulse Rate 106 H 95 96 Respiratory Rate 26 H 22 H Blood Pressure 134/73 Pulse Oximetry 100 11/18/19 14:01 11/18/19 16:00 11/18/19 16:01 Temperature 37.2 C Pulse Rate 97 97 99 Respiratory Rate 27 H 19 Blood Pressure 137/80 106/49 L Pulse Oximetry 100 100 100 11/18/19 17:02 11/18/19 18:24 11/18/19 19:44 Temperature Pulse Rate 98 95 104 H Respiratory Rate 29 H 34 H Blood Pressure 123/64 Pulse Oximetry 100 100 100 11/18/19 19:55 11/18/19 20:00 11/18/19 21:45 Temperature 37.2 C Pulse Rate 102 H
[2019-11-19] MEDS: HEPARIN SOD/D5W 100 UNITS/ML 25,000 UNITS/250 ML BAG 11 UNITS IV CONT (12:22)
[2019-11-19 12:32] LABS: Glucose Point of Care 120 (65-105)
--- NOTE | 2019-11-19 12:39 | WPDINTPN ---
Progress Note: A&P Assessment and Plan (1) Acute respiratory failure: Code(s): J96.00 - Acute respiratory failure, unspecified whether with hypoxia or hypercapnia Status: Acute Assessment and Plan: - patient on mechanical ventilation - patient now status post tracheostomy on 10/30/2019 - patient had a a ultrasound-guided thoracentesis done on 10/26 on right and 150 mL fluid was removed which was negative for any Gram stain or culture. - patient on ASV mode of ventilation and tolerating, 30% FiO2 and peep of 5 - Continue physical and occupational therapy to work with the patient - appreciate pulmonology evaluation and recommendation (2) Severe sepsis: Code(s): A41.9 - Sepsis, unspecified organism; R65.20 - Severe sepsis without septic shock Status: Acute Assessment and Plan: RESOLVED - status post successful treatment of Linda peritonitis with anti fungal therapy 11/06/2019: CT chest/abdomen /pelvis showed perforation of the posterior fundus of the stomach with splenic infarct and fluid collection , status post CT-guided placement of a drain with purulent drainage - cultures from abscess on the posterior aspect of the stomach growing Enterococcus, - leukocytosis persists, ID following, continue Vancomycin #11/25 - 11/16/2019 abdominal x-ray with water-soluble contrast showed persistent extravasation of contrast to the defect in the gastric fundus with drainage by the left upper quadrant percutaneous drain (3) Peritonitis: Onset Date: ~10/2019 Code(s): K65.9 - Peritonitis, unspecified Status: Acute Assessment and Plan: status post successful treatment of Linda peritonitis - status post removal of peritoneal dialysis catheter on 10/21/2019, Catheter and peritoneal fluid sent for culture - SILVA drains x1 draining minimal amount of serosanguineous fluid, surgery following the patient. (4) Aspiration pneumonia: Code(s): J69.0 - Pneumonitis due to inhalation of food and vomit Status: Acute Assessment and Plan: completed course of antibiotics (5) Encephalopathy: Code(s): G93.40 - Encephalopathy, unspecified Status: Acute Assessment and Plan: - was improving, normal patient only opens his eyes intermittently but does not follow simple commands - dropped his hemoglobin was no obvious bleed, patient on heparin infusion, CT scan of the brain on 11/15/2019: Unchanged mild scattered white matter hypoattenuation consistent with chronic small-vessel ischemic disease. No acute intracranial process. Increasing small left and large right otomastoiditis effusion - patient is off all sedation - encephalopathy likely multifactorial related to metabolic /uremic encephalopathy, infectious encephalopathy, medication related, critical care encephalopathy - EEG was done on 10/20/2019 and discussed with Neurology, EEG had significant slowing, likely related to severe encephalopathy. No epileptiform discharges were seen - patient did have a CT scan of the brain on 10/18/2019: was negative for any acute intracranial pathology (6) Cardiorespiratory arrest: Code(s): I46.9 - Cardiac arrest, cause unspecified Status: Acute Assessment and Plan: PEA arrest on 10/13/2019 likely due to aspiration, ROSC after 1 round of epinephrine - post arrest pt was following commands and so did not require hypothermia protocol (7) ESRD (end stage renal disease) on dialysis: Code(s): N18.6 - End stage renal disease; Z99.2 - Dependence on renal dialysis Status: Acute Assessment and Plan: patient with end-stage renal disease on peritoneal dialysis, FUNGAL PERITONITIS - removal of peritoneal dialysis catheter and insertion of right IJ tunnel dialysis catheter was done on 10/21/2019. - Patient started on hemodialysis on 10/21/2019, - Further dialysis per Nephrology (8) DVT prophylaxis:
--- NOTE | 2019-11-19 12:56 | PCDIET ---
ICU Rounding Note: Patient remains on Clinimix E 07/30 at 80mL/hr with 250mL 20% lipids every 72 hours. Last recorded weight is 74.1kg which is stable. Patient had 1.5L UF yesterday. Bowel Motility: Last documented BM on 11/17/19. Labs Reviewed: Hgb (8.0), Hct (24.8), Glu (72), BUN (39), Cr (1.5), Na (129), Alb (2.0), PO4 (5.0) Meds Noted: Albumin, Albuterol, Fentanyl, Heparin, Atrovent, Midodrine, Protonix, Vancomycin Additional Notes: No change in skin reported - still with multiple issues. Following daily in ICU rounds. Assessing/reassessing every Saturday/Saturday.
--- NOTE | 2019-11-19 14:15 | WPDINFPN2 ---
Progress Note: A&P Assessment and Plan (1) Gastric perforation: Code(s): K25.5 - Chronic or unspecified gastric ulcer with perforation Status: Acute Assessment and Plan: 1. Gastric perforation leading to posterior abscess with Enterocccus. The perforation has not yet healed by dye study. WBC is slowly declining 2. Past Linda peritonitis, treated successfully 3. MSOF REC Vanc monotherapy # 9 / 10 days, PharmD dosing, trough is appropriate. Off other antimicrobials. Very poor prognosis. Subjective Date/time seen: 11/19/19 14:15 Interval history: non verbal Exam Narrative: Exam Narrative: afebrile. JACC in L IJ Const: General: no acute distress Other: appears chronically ill Resp: Auscultation: rales and rhonchi Cardio: Rate: regular rate Rhythm: regular rhythm GI: Inspection: distended GI Palp: Yes Firmness to palpation present (GI), No Tenderness to palpation present (GI) and No Guarding due to palpation present (GI) Objective Data Vital Signs Vital Signs: Vital Signs - 24 hr 11/18/19 16:00 11/18/19 16:01 11/18/19 17:02 Temperature 37.2 C Pulse Rate 97 99 98 Respiratory Rate 19 Blood Pressure 106/49 L Pulse Oximetry 100 100 100 11/18/19 18:24 11/18/19 19:44 11/18/19 19:55 Temperature Pulse Rate 95 104 H 102 H Respiratory Rate 29 H 34 H 34 H Blood Pressure 123/64 Pulse Oximetry 100 100 11/18/19 20:00 11/18/19 21:45 11/18/19 23:02 Temperature 37.2 C Pulse Rate 97 97 101 H Respiratory Rate 22 H 26 H Blood Pressure 127/98 H 120/56 L Pulse Oximetry 100 99 100 11/19/19 00:00 11/19/19 02:00 11/19/19 03:47 Temperature 37.2 C Pulse Rate 98 88 91 Respiratory Rate 22 H 22 H Blood Pressure 111/50 L 111/92 H Pulse Oximetry 100 100 100 11/19/19 04:00 11/19/19 06:00 11/19/19 08:00 Temperature 37.2 C 36.6 C Pulse Rate 88 88 4 L Respiratory Rate 22 H 18 24 H Blood Pressure 107/41 L 98/66 L 107/47 L Pulse Oximetry 100 99 98 11/19/19 08:15 11/19/19 08:34 11/19/19 10:00 Temperature Pulse Rate 96 98 96 Respiratory Rate 31 H 30 H 16 Blood Pressure 116/63 Pulse Oximetry 100 99 11/19/19 12:00 11/19/19 12:39 Temperature 36.7 C Pulse Rate 96 96 Respiratory Rate 30 H Blood Pressure 109/72 Pulse Oximetry 99 100 Intake/Output Intake/Output: Intake & Output 11/16/19 11/17/19 11/18/19 11/19/19 23:59 23:59 23:59 23:59 Intake Total 2579 2438.1 2614.1 1182.9 Output Total 1000 3925 1650 60 Balance 1579 -1486.9 964.1 1122.9 Meds/Results Medications: Active Medications Generic Name Dose Route Start Last Admin Trade Name Freq PRN Reason Stop Dose Admin Albuterol 2.5 mg 10/29/19 11:48 11/16/19 08:40 Albuterol Sulf Neb 2.5mg/0.5ml INHALATION 2.5 mg Q4HRT PRN Administration Wheezing or high peak pressure Alteplase, Recombinant 2 mg 11/14/19 07:02 11/14/19 07:56 Cathflo Activase IV PUSH 2 mg ONCE PRN Administration Line Occlusion Bisacodyl 10 mg 10/14/19 17:03 10/16/19 17:51 Dulcolax Suppository RECTAL 10 mg QAM PRN Administration Constipation Dextrose 12.5 gm 10/31/19 09:03 11/14/19 08:42 Dextrose 50% Syringe IV PUSH 12.5 gm PRN PRN Administration Hypoglycemia Protocol Fentanyl Citrate 25 mcg 11/17/19 13:01 11/19/19 05:01 Sublimaze IV PUSH 25 mcg Q1H PRN Administration Pain Rated 7-10 Glucagon 1 mg 10/31/19 09:03 11/14/19 07:56 Glucagon For Inj IM 1 mg PRN PRN Administration Hypoglycemia Protocol Heparin Sodium (Porcine) 5,000 units 11/06/19 14:51 11/10/19 19:21 Heparin Sodium IV PUSH 5,000 units PRN PRN Administration aPTT less than 55 seconds Heparin Sodium (Porcine) 2,500 units 11/06/19 14:51 11/18/19 18:37 Heparin Sodium IV PUSH 2,500 units PRN PRN Administration aPTT 55 - 70 seconds Albumin Human 50 mls @ 999 mls/hr 10/26/19 06:37 11/16/19 11:50 Albutein IVPB 11/25/19 06:38
--- NOTE | 2019-11-19 16:59 | PM.IMPN ---
Progress Note: A&P Assessment and Plan (1) Gastric perforation: Code(s): K25.5 - Chronic or unspecified gastric ulcer with perforation Status: Acute Assessment and Plan: 11/19/19 16:59 Interval history: 78-year-old male with history of end-stage renal disease on peritoneal dialysis presented emergency department had a cardiac arrest ROSC after 1 round of epinephrine per protocol ROSC, with shortness of breath and hypoxic patient was intubated currently on vent, patient may have aspirated pneumonia, patient in septic shock and on pressor, patient being treated with Levaquin, vancomycin and Flagyl, discussed with hospitality aide prognosis is poor we appreciate hospitality aide, patient is seen by Dr. Aguilar nephrology for peritoneal dialysis, Touch Up Worker had spoken with patient's , she would like to keep full code and continue to treat the patient. septic shock resolved and patient is off Levophed, septic shock most likely secondary to aspiration pneumonia possibly peritonitis and treated with Flagyl cefepime and ceftazidime intraperitoneal by nephrology, patient is his leukocytosis etiology uncertain seen by Dr. Rowe and hospitality aide, stopped all antibiotic and has started the patient vancomycin and aztreonam, meanwhile patient was seen by surgery and peritoneal dialysis catheter was removed and now patient is on hemodialysis, patient intubated having regular dialysis, unable to wean the patient off the ventilator,pt has PEG and Sp trache. From my previous notes. Nephrology, and discussed with hospitality aide prognosis is poor now GI abscess more difficult to transfer the patient to LTAC Long history, family reluctant on hospice. Pt has PEG and Trache complicated with drain for perforation of the posterior fundus of the stomach with splenic infarct and fluid collection and drain placement ID ICU, surgery and nephrology rounding on patient there are no new issues will continue follow patient today patient's present in the room, earlier patient spoke with hospitality aide and now patient is DNR, had a long discussion with the patient's , she is considering withdrawing care but not today. patient has a poor prognosis., on 11/15 I miss wrote the patient was taken off the ventilator and family had withdrawn the care there was not right patient family has continue current treatment and patient is on ventilator until further recommendation from thefamily, discussed with hospitality aide today patient liver enzymes elevated acute hepatitis panel is negative, abdominal ultrasound showed Cholelithiasis and mild gallbladder distention without additional findings of acute cholecystitis. will continue to monitor and further recommendation to follow. (2) Severe sepsis: Code(s): A41.9 - Sepsis, unspecified organism; R65.20 - Severe sepsis without septic shock Status: Acute Assessment and Plan: Likely secondary to peritonitis, his dialysis catheter was removed however now he has a gastric perforation leaking into the peritoneum. See above ID rounding (3) ESRD (end stage renal disease) on dialysis: Code(s): N18.6 - End stage renal disease; Z99.2 - Dependence on renal dialysis Status: Acute Assessment and Plan: Nephrology rounding (4) Ventilator dependence: Code(s): Z99.11 - Dependence on respirator [ventilator] status Status: Acute Assessment and Plan: Icu rounding Subjective Date/time seen: 11/19/19 16:59 Interval history: 78-year-old male with history of end-stage renal disease on peritoneal dialysis presented emergency department had a cardiac arrest ROSC after 1 round of epinephrine per protocol ROSC, with shortness of breath and hypoxic patient was intubated currently on vent, patient may have aspirated pneumonia, patient in septic shock and on pressor, patient being treated with Levaquin, vancomycin and Flagyl, discussed with hospitality aide prognosis is poor we appreciate inte
[2019-11-19 17:47] LABS: Glucose Point of Care 159 (65-105)
[2019-11-19] MEDS: ALBUTEROL SULFATE NEB 2.5 MG/0.5 ML INH INHALATION (20:27)
[2019-11-19] MEDS: INSULIN DETEMIR 100 UNITS/ML 8 UNITS SUB-Q (20:29)
[2019-11-19 23:36] LABS: Glucose Point of Care 192 (65-105)
[2019-11-20] VITALS (52 sets, daily range): BP systolic 80–130; BP diastolic 39–102; PULSE 27–124; RESP 15–100; TEMP 34.7–38.1; O2SAT 97–100
[2019-11-20] MEDS: ALBUTEROL SULFATE NEB 2.5 MG/0.5 ML INH INHALATION ×2 (02:32→19:36)
[2019-11-20] MEDS: IPRATROPIUM BR 0.02% INH SOLN 0.5 MG/2.5 ML VIAL INHALATION ×4 (02:33→19:36)
[2019-11-20 04:23] LABS: Basophils Absolute Auto 0.2 K/mm3 (0.0-0.1); Basophils Percent Auto 1.4 % (0.2-1.2); Eosinophils Absolute Auto 0.4 K/mm3 (0-0.3); Eosinophils Percent Auto 3.1 % (0-4.4); Hematocrit 25.5 % (42.0-52.0); Hemoglobin 8.1 g/dL (14.0-18.0); Immature Granulocyte Absolute 0.15 K/mm3 (0.00-0.031); Immature Granulocyte Percent A 1.3 % (0-0.5); Lymphocytes Absolute Auto 2.21 K/mm3 (0.9-3.2); Lymphocytes Percent Auto 19.9 % (18.3-44.2); Mean Corpuscular HGB Conc 31.8 g/dl (32-36); Mean Corpuscular Hemoglobin 33.2 pg (26-34); Mean Corpuscular Volume 104.5 fl (80-100); Monocytes Percent Auto 18.1 % (2.6-8.5); Neutrophils Absolute Auto 6.3 K/mm3 (1.3-6.7); Neutrophils Percent Auto 56.2 % (45.5-73.1); Platelet Count Result 279 k/mm3 (150-375); Red Blood Count 2.44 M/mm3 (4.6-6.20); Red Cell Distribution Width 20.4 % (11.5-14.5); White Blood Count 11.1 K/mm3 (4.5-10.0)
[2019-11-20 04:29] LABS: Partial Thromboplastin Time 88.5 SECONDS (22.3-36.8)
[2019-11-20 04:34] LABS: Alveolar/Arterial O2 Gradient 72.6 mmHg; Arterial Blood Gas PEEP 5 cmH2O; Arterial Blood Gas Vent Mode ASV; Base Excess ABG 0.5 mEq/l (+/-2.0); Carboxyhemoglobin 0.3 % THb (0-2.0); Device VENTILATOR; Fractional Inspired Oxygen 30 %; HCO3 ABG 23.6 mEq/l (22.0-26.0); Methemoglobin ABG 0.3 %THb (0-1.5); Modified Allen's Test Pass; Oxygen Content ABG 13.5 %vol (16.0-22.0); Oxygen Saturation ABG 98.1 % (95.0-100.0); Oxyhemoglobin 96.5 % THb (90.0-100.0); PCO2 ABG 32.1 mmHg (35.0-45.0); PO2 ABG 103.6 mmHg (80.0-100.0); PO2 FiO2 Ratio Arterial Blood 3.45 %; Reduced Hemoglobin 2.9 %THb (0-5.0); Site Drawn RIGHT RADIAL; Total Hemoglobin 9.8 g/dL (12.0-18.0); pH ABG 7.484 (7.350-7.450)
[2019-11-20 04:55] LABS: Alanine Aminotransferase 49 U/L (4-50); Alkaline Phosphatase 231 U/L (38-126); Anion Gap 7 mmol/L (8-16); Aspartate Amino Transferase 84 U/L (17-59); Bilirubin,Total 0.6 mg/dL (0.2-1.3); Blood Urea Nitrogen 61 mg/dL (9-20); Carbon Dioxide 26 mmol/L (22-30); Chloride 92 mmol/L (98-107); Estimated CRCL calculation 21 ml/min; Estimated Glomerular Filt Rate 29; Glucose 223 mg/dL (75-110); Potassium 4.7 mmol/L (3.4-5.0); Sodium 125 mmol/L (137-145)
[2019-11-20 05:36] LABS: Glucose Point of Care 191 (65-105)
[2019-11-20] MEDS: CENTRAL LINE FLUSH 20 ML IV PUSH (05:39)
[2019-11-20] MEDS: CENTRAL LINE FLUSH 10 ML IV PUSH ×3 (05:39→20:00)
[2019-11-20] MEDS: SUCRALFATE SUSP 100 MG/ML 10 ML UDC 1000 MG PO ×4 (05:39→23:33)
[2019-11-20] MEDS: MIDODRINE HCL 10 MG TABLET PO ×3 (08:18→16:09)
[2019-11-20] MEDS: PANTOPRAZOLE SODIUM IV 40 MG VIAL IV PUSH ×2 (08:26→20:52)
[2019-11-20] MEDS: INSULIN DETEMIR 100 UNITS/ML 12 UNITS SUB-Q ×2 (08:30→20:50)
[2019-11-20] MEDS: FAT EMULSIONS IV 20% 250 ML 20.8 ML IVPB (08:32)
[2019-11-20] MEDS: HEPARIN SOD/D5W 100 UNITS/ML 25,000 UNITS/250 ML BAG 11 UNITS IV CONT (08:36)
[2019-11-20 08:41] LABS: Glucose Point of Care 218 (65-105)
[2019-11-20] MEDS: EPOETIN ALFA-EPBX 10,000 UNITS/ML VIAL 10000 UNITS IV PUSH (10:34)
--- NOTE | 2019-11-20 11:42 | PCDIET ---
Nutrition Follow-Up Complete: Nutrition Diagnosis: Inadequate oral intake related to oral intubation as evidenced by NPO status. Nutrition Goal: Patient to meet estimated nutritional needs. Goal in progress. Patient remains NPO on Clinimix E 07/30 at 80mL/hr with 250mL 20% lipids every 72 hours. Last recorded weight is 75.8 kg which is increased from last review. +I/O. Undergoing dialysis at this time. Bowel Motility: Last documented BM on 11/17/19. Labs Reviewed: Hgb (8.1), Hct (25.5), Glu (191), BUN (61), Cr (2.2), Na (125), Alb (2.0) Meds Noted: Albumin, Albuterol, Fentanyl, Novolog, Levemir, Atrovent, Midodrine, Protonix, Vancomycin Additional Notes: No change in skin issues reported. Will continue to monitor with same goal. Nutrition Monitoring and Evaluation: Follow up every Saturday/Saturday. Follow daily in ICU rounds.
[2019-11-20] MEDS: HEPARIN SODIUM 1,000 UNITS/ML VIAL 1000 UNITS IV PUSH (11:46)
--- NOTE | 2019-11-20 12:10 | PM.PNGS ---
Progress Note: A&P Assessment and Plan (1) Gastric perforation: Code(s): K25.5 - Chronic or unspecified gastric ulcer with perforation Status: Acute Assessment and Plan: Perforation contained with drain placement. Continue Protonix and Carafate. Could consider repeat contrast study to assess for healing of perforation if drain output tapers down to almost nothing. Would not recommend enteral feedings until contrast study has confirmed no further perforation. Subjective Subjective Date/Time Seen: 11/20/19 12:10 Patient seen and examined. Minimal output from surgical drain. Still having slight output from pigtail drain. Exam GI: Other: Pigtail drain with minimal purulent output. SILVA drain serous. Objective Data Vital Signs Vital Signs: Vital Signs - 24 hr 11/19/19 12:39 11/19/19 14:00 11/19/19 15:22 Temperature Pulse Rate 96 91 105 H Respiratory Rate 19 16 Blood Pressure 130/53 L Pulse Oximetry 100 98 11/19/19 15:24 11/19/19 15:29 11/19/19 16:00 Temperature 36.7 C Pulse Rate 91 95 94 Respiratory Rate 26 H 25 H Blood Pressure 118/56 L Pulse Oximetry 100 98 11/19/19 17:07 11/19/19 18:00 11/19/19 20:00 Temperature Pulse Rate 98 101 H 99 Respiratory Rate 22 H 24 H Blood Pressure 108/72 Pulse Oximetry 97 99 98 11/19/19 20:05 11/19/19 20:27 11/19/19 20:37 Temperature 36.7 C Pulse Rate 98 102 H 102 H Respiratory Rate 21 H 35 H 26 H Blood Pressure 130/68 Pulse Oximetry 98 11/19/19 20:38 11/19/19 22:00 11/19/19 23:08 Temperature Pulse Rate 99 99 98 Respiratory Rate 22 H Blood Pressure 135/58 L Pulse Oximetry 100 98 100 11/20/19 00:00 11/20/19 00:07 11/20/19 02:00 Temperature 36.9 C Pulse Rate 94 92 103 H Respiratory Rate 17 24 H Blood Pressure 114/53 L 114/68 Pulse Oximetry 99 98 99 11/20/19 02:33 11/20/19 02:36 11/20/19 02:43 Temperature Pulse Rate 100 100 95 Respiratory Rate 15 19 Blood Pressure Pulse Oximetry 100 11/20/19 04:00 11/20/19 04:10 11/20/19 04:36 Temperature 37.6 C Pulse Rate 97 104 H 103 H Respiratory Rate 21 H 25 H Blood Pressure 122/76 Pulse Oximetry 100 98 98 11/20/19 06:00 11/20/19 08:00 11/20/19 08:30 Temperature 37.1 C 36.6 C 37.1 C Pulse Rate 102 H 105 H 100 Respiratory Rate 32 H 25 H 22 H Blood Pressure 117/65 104/86 114/68 Pulse Oximetry 100 98 98 11/20/19 08:32 11/20/19 08:33 11/20/19 08:34 Temperature Pulse Rate 105 H 105 H 102 H Respiratory Rate 25 H Blood Pressure 124/52 L Pulse Oximetry 100 11/20/19 08:44 11/20/19 08:45 11/20/19 09:00 Temperature Pulse Rate 104 H 109 H 111 H Respiratory Rate 29 H Blood Pressure 114/99 H 97/63 L Pulse Oximetry 11/20/19 09:15 11/20/19 09:30 11/20/19 09:45 Temperature Pulse Rate 114 H 116 H 114 H Respiratory Rate Blood Pressure 99/68 L 108/56 L 91/49 L Pulse Oximetry 11/20/19 10:00 11/20/19 10:10 11/20/19 10:15 Temperature Pulse Rate 113 H 112 H 110 H Respiratory Rate 27 H Blood Pressure 85/60 L 102/59 L 90/55 L Pulse Oximetry 98 11/20/19 10:30 11/20/19 10:40 11/20/19 10:45 Temperature Pulse Rate 117 H 115 H 113 H Respiratory Rate Blood Pressure 87/55 L 93/53 L 100/58 L Pulse Oximetry 11/20/19 11:00 11/20/19 11:06 11/20/19 11:15 Temperature Pulse Rate 109 H 111 H 108 H Respiratory Rate Blood Pressure 86/53 L 80/64 L 100/67 Pulse Oximetry 11/20/19 11:30 11/20/19 11:34 11/20/19 11:42 Temperature 36.2 C L Pulse Rate 110 H 110 H 27 L Respiratory Rate 100 H Blood Pressure 130/102 H 106/56 L 101/67 Pulse Oximetry 100 Intake/Output Intake/Output: Intake & Output 11/17/19 11/18/19 11/19/1911/19/20 23:59 23:59 23:59 23:59 Intake Total 2438.1 2614.1 2567.9 1091.9 Output Total 3925 2329 426 2105 Balance -1486.9 964.1 2417.9 -1733.1 Meds/Results Medications: Active Medications Generic Name Dose Route Start Last Admi
[2019-11-20] MEDS: SILVERGEL (ELTA) 45 ML 1 APPLIC TOPICAL (12:12)
--- NOTE | 2019-11-20 12:24 | WPDINTPN ---
Progress Note: A&P Assessment and Plan (1) Acute respiratory failure: Code(s): J96.00 - Acute respiratory failure, unspecified whether with hypoxia or hypercapnia Status: Acute Assessment and Plan: - patient on mechanical ventilation - patient now status post tracheostomy on 10/30/2019 - patient had a a ultrasound-guided thoracentesis done on 10/26 on right and 150 mL fluid was removed which was negative for any Gram stain or culture. - patient on ASV mode of ventilation and tolerating, 30% FiO2 and peep of [address] patient on high pressure support ventilation - Continue physical and occupational therapy to work with the patient - appreciate pulmonology evaluation and recommendation (2) Severe sepsis: Code(s): A41.9 - Sepsis, unspecified organism; R65.20 - Severe sepsis without septic shock Status: Acute Assessment and Plan: RESOLVED - status post successful treatment of Linda peritonitis with anti fungal therapy 11/06/2019: CT chest/abdomen /pelvis showed perforation of the posterior fundus of the stomach with splenic infarct and fluid collection , status post CT-guided placement of a drain with purulent drainage - cultures from abscess on the posterior aspect of the stomach growing Enterococcus, - leukocytosis persists, ID following, continue Vancomycin #/ - 11/16/2019 abdominal x-ray with water-soluble contrast showed persistent extravasation of contrast to the defect in the gastric fundus with drainage by the left upper quadrant percutaneous drain (3) Peritonitis: Onset Date: ~10/2019 Code(s): K65.9 - Peritonitis, unspecified Status: Acute Assessment and Plan: status post successful treatment of Linda peritonitis - status post removal of peritoneal dialysis catheter on 10/21/2019, Catheter and peritoneal fluid sent for culture - SILVA drains x1 draining minimal amount of serosanguineous fluid, surgery following the patient. (4) Aspiration pneumonia: Code(s): J69.0 - Pneumonitis due to inhalation of food and vomit Status: Acute Assessment and Plan: completed course of antibiotics (5) Encephalopathy: Code(s): G93.40 - Encephalopathy, unspecified Status: Acute Assessment and Plan: - was improving, normal patient only opens his eyes intermittently but does not follow simple commands - dropped his hemoglobin was no obvious bleed, patient on heparin infusion, CT scan of the brain on 11/15/2019: Unchanged mild scattered white matter hypoattenuation consistent with chronic small-vessel ischemic disease. No acute intracranial process. Increasing small left and large right otomastoiditis effusion - patient is off all sedation - encephalopathy likely multifactorial related to metabolic /uremic encephalopathy, infectious encephalopathy, medication related, critical care encephalopathy - EEG was done on 10/20/2019 and discussed with Neurology, EEG had significant slowing, likely related to severe encephalopathy. No epileptiform discharges were seen - patient did have a CT scan of the brain on 10/18/2019: was negative for any acute intracranial pathology (6) Cardiorespiratory arrest: Code(s): I46.9 - Cardiac arrest, cause unspecified Status: Acute Assessment and Plan: PEA arrest on 10/13/2019 likely due to aspiration, ROSC after 1 round of epinephrine - post arrest pt was following commands and so did not require hypothermia protocol (7) ESRD (end stage renal disease) on dialysis: Code(s): N18.6 - End stage renal disease; Z99.2 - Dependence on renal dialysis Status: Acute Assessment and Plan: patient with end-stage renal disease on peritoneal dialysis, FUNGAL PERITONITIS - removal of peritoneal dialysis catheter and insertion of right IJ tunnel dialysis catheter was done on 10/21/2019. - Patient started on hemodialysis on
[2019-11-20 12:47] LABS: Glucose Point of Care 137 (65-105)
[2019-11-20] MEDS: NEOMYCIN/POLYMYXIN/BACITRACIN OINTMENT 15 GM TUBE 1 APPLIC TOPICAL (13:31)
[2019-11-20 15:07] LABS: Triglycerides 193 mg/dL (<150)
--- NOTE | 2019-11-20 15:17 | WPDINFPN2 ---
Progress Note: A&P Assessment and Plan (1) Gastric perforation: Code(s): K25.5 - Chronic or unspecified gastric ulcer with perforation Status: Acute Assessment and Plan: 1. Gastric perforation leading to posterior abscess with Enterocccus. The perforation has not yet healed by dye study.TF on hold. WBC is slowly declining. His leukocytosis is in part due to his splenic infarction. 2. Past Linda peritonitis, treated successfully 3. MSOF REC Vanc monotherapy # 10, stop after today's doses. Not in need of suppression nor oral therapy. Very poor prognosis. Will sign off, thanks Subjective Date/time seen: 11/20/19 15:17 Interval history: trach and on vent, does not open eyes to tactile / verbal stimuli Exam Narrative: Exam Narrative: afebrile Const: General: no acute distress Resp: Effort & Inspection: normal respiratory effort Auscultation: rales Cardio: Rate: tachycardic Rhythm: regular rhythm Heart sounds: no murmurs GI: GI Palp: Yes Firmness to palpation present (GI), Yes Tenderness to palpation present (GI) and No Guarding due to palpation present (GI) Percussion: Yes tympanic to percussion Auscultation: abnormal bowel sounds Other: drain output noted Urinary Catheter: Urinary Catheter: patent and draining Objective Data Vital Signs Vital Signs: Vital Signs - 24 hr 11/19/19 15:22 11/19/19 15:24 11/19/19 15:29 Temperature Pulse Rate 105 H 91 95 Respiratory Rate 16 26 H Blood Pressure Pulse Oximetry 100 11/19/19 16:00 11/19/19 17:07 11/19/19 18:00 Temperature 36.7 C Pulse Rate 94 98 101 H Respiratory Rate 25 H 22 H Blood Pressure 118/56 L 108/72 Pulse Oximetry 98 97 99 11/19/19 20:00 11/19/19 20:05 11/19/19 20:27 Temperature 36.7 C Pulse Rate 99 98 102 H Respiratory Rate 24 H 21 H 35 H Blood Pressure 130/68 Pulse Oximetry 98 98 11/19/19 20:37 11/19/19 20:38 11/19/19 22:00 Temperature Pulse Rate 102 H 99 99 Respiratory Rate 26 H 22 H Blood Pressure 135/58 L Pulse Oximetry 100 98 11/19/19 23:08 11/20/19 00:00 11/20/19 00:07 Temperature 36.9 C Pulse Rate 98 94 92 Respiratory Rate 17 24 H Blood Pressure 114/53 L Pulse Oximetry 100 99 98 11/20/19 02:00 11/20/19 02:33 11/20/19 02:36 Temperature Pulse Rate 103 H 100 100 Respiratory Rate 15 Blood Pressure 114/68 Pulse Oximetry 99 100 11/20/19 02:43 11/20/19 04:00 11/20/19 04:10 Temperature 37.6 C Pulse Rate 95 97 104 H Respiratory Rate 19 21 H 25 H Blood Pressure 122/76 Pulse Oximetry 100 98 11/20/19 04:36 11/20/19 06:00 11/20/19 08:00 Temperature 37.1 C 36.6 C Pulse Rate 103 H 102 H 105 H Respiratory Rate 32 H 25 H Blood Pressure 117/65 104/86 Pulse Oximetry 98 100 98 11/20/19 08:30 11/20/19 08:32 11/20/19 08:33 Temperature 37.1 C Pulse Rate 100 105 H 105 H Respiratory Rate 22 H 25 H Blood Pressure 114/68 Pulse Oximetry 98 100 11/20/19 08:34 11/20/19 08:44 11/20/19 08:45 Temperature Pulse Rate 102 H 104 H 109 H Respiratory Rate 29 H Blood Pressure 124/52 L 114/99 H Pulse Oximetry 11/20/19 09:00 11/20/19 09:15 11/20/19 09:30 Temperature Pulse Rate 111 H 114 H 116 H Respiratory Rate Blood Pressure 97/63 L 99/68 L 108/56 L Pulse Oximetry 11/20/19 09:45 11/20/19 10:00 11/20/19 10:10 Temperature Pulse Rate 114 H 113 H 112 H Respiratory Rate 27 H Blood Pressure 91/49 L 85/60 L 102/59 L Pulse Oximetry 98 11/20/19 10:15 11/20/19 10:30 11/20/19 10:40 Temperature Pulse Rate 110 H 117 H 115 H Respiratory Rate Blood Pressure 90/55 L 87/55 L 93/53 L Pulse Oximetry 11/20/19 10:45 11/20/19 11:00 11/20/19 11:06 Temperature Pulse Rate 113 H 109 H 111 H Respiratory Rate Blood Pressure 100/58 L 86/53 L 80/64 L Pulse Oximetry 09/04/20 11:15 11/20/19 11:30 11/20/19 11:34 Temperature Pulse Rate 112 H 110 H 110 H Respiratory Rate Blood Pressure 100/67 130/10
--- NOTE | 2019-11-20 15:17 | PM.IMPN ---
Progress Note: A&P Assessment and Plan (1) Gastric perforation: Code(s): K25.5 - Chronic or unspecified gastric ulcer with perforation Status: Acute Assessment and Plan: 11/20/19 15:17 11/19/19 16:59 Interval history: 78-year-old male with history of end-stage renal disease on peritoneal dialysis presented emergency department had a cardiac arrest ROSC after 1 round of epinephrine per protocol ROSC, with shortness of breath and hypoxic patient was intubated currently on vent, patient may have aspirated pneumonia, patient in septic shock and on pressor, patient being treated with Levaquin, vancomycin and Flagyl, discussed with library science professor prognosis is poor we appreciate library science professor, patient is seen by Dr. Aguilar nephrology for peritoneal dialysis, Manager Material had spoken with patient's , she would like to keep full code and continue to treat the patient. septic shock resolved and patient is off Levophed, septic shock most likely secondary to aspiration pneumonia possibly peritonitis and treated with Flagyl cefepime and ceftazidime intraperitoneal by nephrology, patient is his leukocytosis etiology uncertain seen by Dr. Rowe and library science professor, stopped all antibiotic and has started the patient vancomycin and aztreonam, meanwhile patient was seen by surgery and peritoneal dialysis catheter was removed and now patient is on hemodialysis, patient intubated having regular dialysis, unable to wean the patient off the ventilator,pt has PEG and Sp trache. From my previous notes. Nephrology, and discussed with library science professor prognosis is poor now GI abscess more difficult to transfer the patient to LTAC Long history, family reluctant on hospice. Pt has PEG and Trache complicated with drain for perforation of the posterior fundus of the stomach with splenic infarct and fluid collection and drain placement ID ICU, surgery and nephrology rounding on patient there are no new issues will continue follow patient today patient's present in the room, earlier patient spoke with library science professor and now patient is DNR, had a long discussion with the patient's , she is considering withdrawing care but not today. patient has a poor prognosis., on 11/15 I miss wrote the patient was taken off the ventilator and family had withdrawn the care there was not right patient family has continue current treatment and patient is on ventilator until further recommendation from thefamily, discussed with library science professor today patient liver enzymes elevated acute hepatitis panel is negative, abdominal ultrasound showed Cholelithiasis and mild gallbladder distention without additional findings of acute cholecystitis. patient is seen by surgery Service today for perforation bowel recommending if the drainage stops may repeat contrast study to evaluate if the perforation has healed before restarting enteral feeding, will continue to monitor and further recommendation to follow. (2) Severe sepsis: Code(s): A41.9 - Sepsis, unspecified organism; R65.20 - Severe sepsis without septic shock Status: Acute Assessment and Plan: Likely secondary to peritonitis, his dialysis catheter was removed however now he has a gastric perforation leaking into the peritoneum. See above ID rounding (3) ESRD (end stage renal disease) on dialysis: Code(s): N18.6 - End stage renal disease; Z99.2 - Dependence on renal dialysis Status: Acute Assessment and Plan: Nephrology rounding (4) Ventilator dependence: Code(s): Z99.11 - Dependence on respirator [ventilator] status Status: Acute Assessment and Plan: Icu rounding Subjective Date/time seen: 11/20/19 15:17 11/19/19 16:59 Interval history: 78-year-old male with history of end-stage renal disease on peritoneal dialysis presented emergency department had a cardiac arrest ROSC after 1 round of epinephrine per protocol ROSC, with shortness of breath and hypoxic patient was
--- NOTE | 2019-11-20 15:28 | PM.PNNEP ---
Progress Note: A&P Assessment and Plan (1) ESRD (end stage renal disease) on dialysis: Code(s): N18.6 - End stage renal disease; Z99.2 - Dependence on renal dialysis Status: Acute Assessment and Plan: the patient had dialysis earlier today. 2.8L were removed. He did not need pressors after all. (2) Gastric perforation: Code(s): K25.5 - Chronic or unspecified gastric ulcer with perforation Status: Acute Assessment and Plan: Surgery following Getting TPN for nutrition (3) Peritonitis (acute) generalized: Code(s): K65.0 - Generalized (acute) peritonitis Status: Acute Assessment and Plan: completed 2 week course of antifungal therapy (4) Hyponatremia: Onset Date: Unknown Code(s): E87.1 - Hypo-osmolality and hyponatremia Status: Acute Assessment and Plan: stable at this time Sodium running in the mid to high 120s check in a.m. (5) Cardiorespiratory arrest: Code(s): I46.9 - Cardiac arrest, cause unspecified Status: Acute Assessment and Plan: presumably precipitated by aspiration now has a tracheostomy remains on mechanical ventilation (6) Encephalopathy: Code(s): G93.40 - Encephalopathy, unspecified Status: Acute Assessment and Plan: things look about the same. Subjective Date/time seen: 11/20/19 15:28 Interval history: patient is on the ventilator in the ICU. Opens his eyes and makes eye contact . He seems to be a little more alert but still will not interact. He looks comfortable on the ventilator Exam Narrative: Exam Narrative: Well developed well-nourished gentleman lying in the hospital bed in no acute distress today Lungs are course Heart regular without rub bowel sounds positive but hypoactive Skin no rash Extremities 1 to2+ presacral edema Objective Data Vital Signs Vital Signs: Vital Signs - 24 hr 11/19/19 15:29 11/19/19 16:00 11/19/19 17:07 Temperature 36.7 C Pulse Rate 95 94 98 Respiratory Rate 26 H 25 H Blood Pressure 118/56 L Pulse Oximetry 98 97 11/19/19 18:00 11/19/19 20:00 11/19/19 20:05 Temperature 36.7 C Pulse Rate 101 H 99 98 Respiratory Rate 22 H 24 H 21 H Blood Pressure 108/72 130/68 Pulse Oximetry 99 98 98 11/19/19 20:27 11/19/19 20:37 11/19/19 20:38 Temperature Pulse Rate 102 H 102 H 99 Respiratory Rate 35 H 26 H Blood Pressure Pulse Oximetry 100 11/19/19 22:00 11/19/19 23:08 11/20/19 00:00 Temperature Pulse Rate 99 98 94 Respiratory Rate 22 H 17 Blood Pressure 135/58 L Pulse Oximetry 98 100 99 11/20/19 00:07 11/20/19 02:00 11/20/19 02:33 Temperature 36.9 C Pulse Rate 92 103 H 100 Respiratory Rate 24 H 15 Blood Pressure 114/53 L 114/68 Pulse Oximetry 98 99 11/20/19 02:36 11/20/19 02:43 11/20/19 04:00 Temperature Pulse Rate 100 95 97 Respiratory Rate 19 21 H Blood Pressure Pulse Oximetry 100 100 11/20/19 04:10 11/20/19 04:36 11/20/19 06:00 Temperature 37.6 C 37.1 C Pulse Rate 104 H 103 H 102 H Respiratory Rate 25 H 32 H Blood Pressure 122/76 117/65 Pulse Oximetry 98 98 100 11/20/19 08:00 11/20/19 08:30 11/20/19 08:32 Temperature 36.6 C 37.1 C Pulse Rate 105 H 100 105 H Respiratory Rate 25 H 22 H 25 H Blood Pressure 104/86 114/68 Pulse Oximetry 98 98 11/20/19 08:33 11/20/19 08:34 11/20/19 08:44 Temperature Pulse Rate 105 H 102 H 104 H Respiratory Rate 29 H Blood Pressure 124/52 L Pulse Oximetry 100 11/20/19 08:45 11/20/19 09:00 11/20/19 09:15 Temperature Pulse Rate 109 H 111 H 114 H Respiratory Rate Blood Pressure 114/99 H 97/63 L 99/68 L Pulse Oximetry 11/20/19 09:30 11/20/19 09:45 11/20/19 10:00 Temperature Pulse Rate 116 H 114 H 113 H Respiratory Rate 27 H Blood Pressure 108/56 L 91/49 L 85/60 L Pulse Oximetry 98 11/20/19 10:10 11/20/19 10:15 11/20/19 10
[2019-11-20] MEDS: ACETAMINOPHEN ELIXIR 325 MG/10.15 ML UDC 650 MG FEED TUBE (16:08)
[2019-11-20 16:42] LABS: Vancomycin Random 13.6 ug/mL (10-20)
[2019-11-20 17:19] LABS: Glucose Point of Care 173 (65-105)
[2019-11-20 21:01] LABS: Glucose Point of Care 198 (65-105)
[2019-11-20 23:31] LABS: Glucose Point of Care 193 (65-105)
[2019-11-21] VITALS (35 sets, daily range): BP systolic 73–180; BP diastolic 47–82; PULSE 90–116; RESP 14–36; TEMP 0–37.7; O2SAT 96–100
[2019-11-21] MEDS: IPRATROPIUM BR 0.02% INH SOLN 0.5 MG/2.5 ML VIAL INHALATION ×4 (01:33→19:33)
[2019-11-21] MEDS: CENTRAL LINE FLUSH 10 ML IV PUSH ×3 (05:30→20:36)
[2019-11-21 05:32] LABS: Base Excess ABG 4.1 mEq/l (+/-2.0); Fractional Inspired Oxygen 30 %; HCO3 ABG 27.1 mEq/l (22.0-26.0); Oxygen Content ABG 12.4 %vol (16.0-22.0); Oxygen Saturation ABG 96.4 % (95.0-100.0); Oxyhemoglobin 93.9 % THb (90.0-100.0); PCO2 ABG 34.3 mmHg (35.0-45.0); PO2 ABG 75.6 mmHg (80.0-100.0); PO2 FiO2 Ratio Arterial Blood 2.52 %; Total Hemoglobin 9.3 g/dL (12.0-18.0)
[2019-11-21 05:34] LABS: Arterial Blood Gas PEEP 5 cmH2O; Arterial Blood Gas Vent Mode ASV; Device VENTILATOR; Modified Allen's Test Unable to perform; Site Drawn RIGHT RADIAL; pH ABG 7.516 (7.350-7.450)
[2019-11-21 05:35] LABS: Arterial Blood Gas Minute Volume 100 LPM
[2019-11-21] MEDS: SUCRALFATE SUSP 100 MG/ML 10 ML UDC 1000 MG PO ×4 (05:58→23:43)
[2019-11-21 06:05] LABS: Glucose Point of Care 139 (65-105)
[2019-11-21] MEDS: INSULIN DETEMIR 100 UNITS/ML 12 UNITS SUB-Q ×2 (08:39→20:34)
[2019-11-21 08:57] LABS: Glucose Point of Care 161 (65-105)
[2019-11-21] MEDS: SILVERGEL (ELTA) 45 ML 1 APPLIC TOPICAL (08:57)
[2019-11-21] MEDS: NEOMYCIN/POLYMYXIN/BACITRACIN OINTMENT 15 GM TUBE 1 APPLIC TOPICAL (09:07)
[2019-11-21] MEDS: PANTOPRAZOLE SODIUM IV 40 MG VIAL IV PUSH ×2 (09:09→20:36)
[2019-11-21] MEDS: MIDODRINE HCL 10 MG TABLET PO ×3 (09:12→17:22)
[2019-11-21] MEDS: HEPARIN SOD/D5W 100 UNITS/ML 25,000 UNITS/250 ML BAG 11 UNITS IV CONT (09:24)
--- NOTE | 2019-11-21 09:55 | PM.PNNEP ---
Progress Note: A&P Assessment and Plan (1) ESRD (end stage renal disease) on dialysis: Code(s): N18.6 - End stage renal disease; Z99.2 - Dependence on renal dialysis Status: Acute Assessment and Plan: the patient had dialysis yesterday. we will do dry ultrafiltration today. Will give him a break tomorrow in the started again on Saturday. (2) Gastric perforation: Code(s): K25.5 - Chronic or unspecified gastric ulcer with perforation Status: Acute Assessment and Plan: Surgery following Getting TPN for nutrition (3) Peritonitis (acute) generalized: Code(s): K65.0 - Generalized (acute) peritonitis Status: Acute Assessment and Plan: completed 2 week course of antifungal therapy (4) Hyponatremia: Onset Date: Unknown Code(s): E87.1 - Hypo-osmolality and hyponatremia Status: Acute Assessment and Plan: stable at this time Sodium running in the mid to high 120s This is due to renal failure and fluid balance. (5) Cardiorespiratory arrest: Code(s): I46.9 - Cardiac arrest, cause unspecified Status: Acute Assessment and Plan: presumably precipitated by aspiration now has a tracheostomy remains on mechanical ventilation (6) Encephalopathy: Code(s): G93.40 - Encephalopathy, unspecified Status: Acute Assessment and Plan: things look about the same. Subjective Date/time seen: 11/21/19 09:55 Interval history: patient is on the ventilator in the ICU. patient grimaces if he is palpated in were on his body. Review of Systems Cardiovascular: Cardiovascular: Reports no additional cardiovascular complaints Respiratory: Respiratory: Reports no additional respiratory complaints Gastrointestinal: Gastrointestinal: Reports no additional gastrointestinal complaints Genitourinary: Genitourinary: Reports no additional male genitourinary complaints Exam Narrative: Exam Narrative: Well developed ill looking male on the ventilator in the ICU. Lungs symmetric and coarse Heart regular rate and rhythm no rub or gallop Abdomen bowel sounds positive Extremities one to2+ edema Skin no rash. It is somewhat dry Objective Data Vital Signs Vital Signs: Vital Signs - 24 hr 11/20/19 10:00 11/20/19 10:10 11/20/19 10:15 Temperature Pulse Rate 113 H 112 H 110 H Respiratory Rate 27 H Blood Pressure 85/60 L 102/59 L 90/55 L Pulse Oximetry 98 11/20/19 10:30 11/20/19 10:40 11/20/19 10:45 Temperature Pulse Rate 117 H 115 H 113 H Respiratory Rate Blood Pressure 87/55 L 93/53 L 100/58 L Pulse Oximetry 11/20/19 11:00 11/20/19 11:06 11/20/19 11:15 Temperature Pulse Rate 109 H 111 H 112 H Respiratory Rate Blood Pressure 86/53 L 80/64 L 100/67 Pulse Oximetry 100 11/20/19 11:30 11/20/19 11:34 11/20/19 11:42 Temperature 36.2 C L Pulse Rate 110 H 110 H 27 L Respiratory Rate 100 H Blood Pressure 130/102 H 106/56 L 101/67 Pulse Oximetry 100 11/20/19 12:00 11/20/19 14:00 11/20/19 14:47 Temperature 37.0 C Pulse Rate 106 H 117 H 120 H Respiratory Rate 27 H 27 H 40 H Blood Pressure 105/39 L 94/52 L Pulse Oximetry 100 98 11/20/19 14:49 11/20/19 14:54 11/20/19 15:53 Temperature Pulse Rate 124 H 119 H Respiratory Rate 33 H Blood Pressure Pulse Oximetry 100 97 11/20/19 15:58 11/20/19 16:00 11/20/19 16:08 Temperature 38.1 C H 38.1 C H Pulse Rate 118 H 114 H Respiratory Rate 28 H Blood Pressure 99/65 L Pulse Oximetry 97 11/20/19 17:35 11/20/19 17:39 11/20/19 18:00 Temperature 37.8 C H 37.8 C H Pulse Rate 112 H 114 H Respiratory Rate 25 H Blood Pressure 108/56 L Pulse Oximetry 97 99 11/20/19 19:38 11/20/19 19:39 11/20/19 19:44 Temperature Pulse Rate 112 H 108 H 110 H Respiratory Rate 20 30 H Blood Pressure Pulse Oximetry 100 11/20/19 20:00 11/20/19 21:31
--- NOTE | 2019-11-21 11:26 | PCFNICU ---
ICU Rounding Note: Patient remains NPO on Clinimix E 07/30 at 80mL/hr with 250mL 20% lipids every 72 hours. Last recorded weight is 75.5 kg down from 75.8 kg. Bowel Motility: Last reported BM on 11/16. Labs Reviewed: 11/19 TG 193 Meds Noted: Heparin,Levemir, Protonix Additional Notes: Patient remains on mechanical ventilator, Plans for spontaneous breathing trial today. No change in skin issues reported. We will continue TPN and monitor. Nutrition Monitoring and Evaluation: Follow up every Saturday/Saturday. Follow daily in ICU rounds.
--- NOTE | 2019-11-21 13:14 | WPDINTPN ---
Progress Note: A&P Assessment and Plan (1) Acute respiratory failure: Code(s): J96.00 - Acute respiratory failure, unspecified whether with hypoxia or hypercapnia Status: Acute Assessment and Plan: - patient on mechanical ventilation - patient now status post tracheostomy on 10/30/2019 - patient had a a ultrasound-guided thoracentesis done on 10/26 on right and 150 mL fluid was removed with culture remained negative. - patient on ASV mode of ventilation and tolerating, 30% FiO2 and peep of 5 . He has been placed on pressure support ventilation at seems to be tolerating well. - Continue physical and occupational therapy to work with the patient - appreciate pulmonology evaluation and recommendation (2) Severe sepsis: Code(s): A41.9 - Sepsis, unspecified organism; R65.20 - Severe sepsis without septic shock Status: Acute Assessment and Plan: RESOLVED - status post successful treatment of Linda peritonitis with anti fungal therapy For 2 weeks. 11/06/2019: CT chest/abdomen /pelvis showed perforation of the posterior fundus of the stomach with splenic infarct and fluid collection , status post CT-guided placement of a drain with purulent drainage - cultures from abscess on the posterior aspect of the stomach growing Enterococcus, - leukocytosis persists, ID following, continue Vancomycin #12/25 - 11/16/2019 abdominal x-ray with water-soluble contrast showed persistent extravasation of contrast to the defect in the gastric fundus with drainage by the left upper quadrant percutaneous drain (3) Peritonitis: Onset Date: ~10/2019 Code(s): K65.9 - Peritonitis, unspecified Status: Acute Assessment and Plan: status post treatment of Linda peritonitis - status post removal of peritoneal dialysis catheter on 10/21/2019, - SILVA drain has now been removed by surgery service. Has completed antibiotics for Enterococcus in the peritoneal fluid. (4) Aspiration pneumonia: Code(s): J69.0 - Pneumonitis due to inhalation of food and vomit Status: Acute Assessment and Plan: completed course of antibiotics (5) Encephalopathy: Code(s): G93.40 - Encephalopathy, unspecified Status: Acute Assessment and Plan: - was improving, normal patient only opens his eyes intermittently but does not follow simple commands - dropped his hemoglobin was no obvious bleed, patient on heparin infusion, CT scan of the brain on 11/15/2019: Unchanged mild scattered white matter hypoattenuation consistent with chronic small-vessel ischemic disease. No acute intracranial process. Increasing small left and large right otomastoiditis effusion - patient is off all sedation - encephalopathy likely multifactorial related to metabolic /uremic encephalopathy, infectious encephalopathy, medication related, critical care encephalopathy - EEG was done on 10/20/2019 Which showed significant slowing, likely related to severe encephalopathy. No epileptiform discharges were seen - patient did have a CT scan of the brain on 10/18/2019: was negative for any acute intracranial pathology (6) Cardiorespiratory arrest: Code(s): I46.9 - Cardiac arrest, cause unspecified Status: Acute Assessment and Plan: PEA arrest on 10/13/2019 likely due to aspiration, ROSC after 1 round of epinephrine - post arrest pt was following commands and so did not require hypothermia protocol (7) ESRD (end stage renal disease) on dialysis: Code(s): N18.6 - End stage renal disease; Z99.2 - Dependence on renal dialysis Status: Acute Assessment and Plan: patient with end-stage renal disease on peritoneal dialysis, FUNGAL PERITONITIS - removal of peritoneal dialysis catheter and insertion of right IJ tunnel dialysis catheter was done on 10/21/2019. - Patient started on hemodialysis on 10/21/2019, - Further dialysis per Nephrology
[2019-11-21 13:31] LABS: Glucose Point of Care 123 (65-105)
--- NOTE | 2019-11-21 15:05 | PM.IMPN ---
Progress Note: A&P Assessment and Plan (1) Gastric perforation: Code(s): K25.5 - Chronic or unspecified gastric ulcer with perforation Status: Acute Assessment and Plan: 11/21/19 15:05 Interval history: 78-year-old male with history of end-stage renal disease on peritoneal dialysis presented emergency department had a cardiac arrest ROSC after 1 round of epinephrine per protocol ROSC, with shortness of breath and hypoxic patient was intubated currently on vent, patient may have aspirated pneumonia, patient in septic shock and on pressor, patient being treated with Levaquin, vancomycin and Flagyl, discussed with ve teacher prognosis is poor we appreciate ve teacher, patient is seen by Dr. Aguilar nephrology for peritoneal dialysis, Sba Underwriter had spoken with patient's , she would like to keep full code and continue to treat the patient. septic shock resolved and patient is off Levophed, septic shock most likely secondary to aspiration pneumonia possibly peritonitis and treated with Flagyl cefepime and ceftazidime intraperitoneal by nephrology, patient is his leukocytosis etiology uncertain seen by Dr. Rowe and ve teacher, stopped all antibiotic and has started the patient vancomycin and aztreonam, meanwhile patient was seen by surgery and peritoneal dialysis catheter was removed and now patient is on hemodialysis, patient intubated having regular dialysis, unable to wean the patient off the ventilator,pt has PEG and Sp trache. From my previous notes. Nephrology, and discussed with ve teacher prognosis is poor now GI abscess more difficult to transfer the patient to LTAC Long history, family reluctant on hospice. Pt has PEG and Trache complicated with drain for perforation of the posterior fundus of the stomach with splenic infarct and fluid collection and drain placement ID ICU, surgery and nephrology rounding on patient there are no new issues will continue follow patient today patient's present in the room, earlier patient spoke with ve teacher and now patient is DNR, had a long discussion with the patient's , she is considering withdrawing care but not today. patient has a poor prognosis., on 11/15 I miss wrote the patient was taken off the ventilator and family had withdrawn the care there was not right patient family has continue current treatment and patient is on ventilator until further recommendation from thefamily, discussed with ve teacher today patient liver enzymes elevated acute hepatitis panel is negative, abdominal ultrasound showed Cholelithiasis and mild gallbladder distention without additional findings of acute cholecystitis. patient is seen by surgery Service on 11/19 for perforation bowel recommending if the drainage stops may repeat contrast study to evaluate if the perforation has healed before restarting enteral feeding, today patient has 15cc drainage, and patient was seen by Dr Aguilar will have dry filtration dialysis will continue to monitor and further recommendation to follow. (2) Severe sepsis: Code(s): A41.9 - Sepsis, unspecified organism; R65.20 - Severe sepsis without septic shock Status: Acute Assessment and Plan: Likely secondary to peritonitis, his dialysis catheter was removed however now he has a gastric perforation leaking into the peritoneum. See above ID rounding (3) ESRD (end stage renal disease) on dialysis: Code(s): N18.6 - End stage renal disease; Z99.2 - Dependence on renal dialysis Status: Acute Assessment and Plan: Nephrology rounding (4) Ventilator dependence: Code(s): Z99.11 - Dependence on respirator [ventilator] status Status: Acute Assessment and Plan: Icu rounding Subjective Date/time seen: 11/21/19 15:05 Interval history: 78-year-old male with history of end-stage renal disease on peritoneal dialysis presented emergency department had a cardiac arrest ROSC after 1 round of epine
[2019-11-21 20:25] LABS: Glucose Point of Care 92 (65-105)
[2019-11-21 20:43] LABS: Glucose Point of Care 116 (65-105)
[2019-11-21 23:24] LABS: Glucose Point of Care 128 (65-105)
[2019-11-22] VITALS (26 sets, daily range): BP systolic 95–136; BP diastolic 40–83; PULSE 96–113; RESP 17–33; TEMP 36.4–37.4; O2SAT 98–100
[2019-11-22] MEDS: IPRATROPIUM BR 0.02% INH SOLN 0.5 MG/2.5 ML VIAL INHALATION ×4 (01:32→20:23)
[2019-11-22] MEDS: CENTRAL LINE FLUSH 10 ML IV PUSH ×3 (04:47→20:04)
[2019-11-22] MEDS: LEVOTHYROXINE SODIUM INJ 100 MCG/5 ML VIAL 50 MCG IV PUSH (05:06)
[2019-11-22] MEDS: SUCRALFATE SUSP 100 MG/ML 10 ML UDC 1000 MG PO ×4 (05:06→23:20)
[2019-11-22 05:10] LABS: Glucose Point of Care 187 (65-105)
[2019-11-22 05:24] LABS: Partial Thromboplastin Time 81.8 SECONDS (22.3-36.8)
--- NOTE | 2019-11-22 05:37 | PCRCNOTE ---
Unable to obtain ABG on 11/22/19 @ 05:11.
[2019-11-22] MEDS: INSULIN DETEMIR 100 UNITS/ML 12 UNITS SUB-Q ×2 (08:06→20:50)
[2019-11-22] MEDS: SILVERGEL (ELTA) 45 ML 1 APPLIC TOPICAL (08:10)
[2019-11-22] MEDS: PANTOPRAZOLE SODIUM IV 40 MG VIAL IV PUSH ×2 (08:11→20:50)
[2019-11-22] MEDS: NEOMYCIN/POLYMYXIN/BACITRACIN OINTMENT 15 GM TUBE 1 APPLIC TOPICAL (08:14)
[2019-11-22] MEDS: HEPARIN SOD/D5W 100 UNITS/ML 25,000 UNITS/250 ML BAG 11 UNITS IV CONT (08:17)
[2019-11-22 08:18] LABS: Glucose Point of Care 197 (65-105)
[2019-11-22] MEDS: MIDODRINE HCL 10 MG TABLET PO ×3 (08:20→17:35)
[2019-11-22 11:50] LABS: Glucose Point of Care 163 (65-105)
--- NOTE | 2019-11-22 13:19 | PM.PNNEP ---
Progress Note: A&P Assessment and Plan (1) ESRD (end stage renal disease) on dialysis: Code(s): N18.6 - End stage renal disease; Z99.2 - Dependence on renal dialysis Status: Acute Assessment and Plan: the patient had dry ultrafiltration yesterday but no fluid was able to be removed so he was taken off early. Will order more dialysis tomorrow. (2) Gastric perforation: Code(s): K25.5 - Chronic or unspecified gastric ulcer with perforation Status: Acute Assessment and Plan: Surgery following Getting TPN for nutrition (3) Peritonitis (acute) generalized: Code(s): K65.0 - Generalized (acute) peritonitis Status: Acute Assessment and Plan: completed 2 week course of antifungal therapy (4) Hyponatremia: Onset Date: Unknown Code(s): E87.1 - Hypo-osmolality and hyponatremia Status: Acute Assessment and Plan: Sodium level remains in the 120s. (5) Cardiorespiratory arrest: Code(s): I46.9 - Cardiac arrest, cause unspecified Status: Acute Assessment and Plan: presumably precipitated by aspiration now has a tracheostomy remains on mechanical ventilation (6) Encephalopathy: Code(s): G93.40 - Encephalopathy, unspecified Status: Acute Assessment and Plan: Stable and non interactive. Subjective Date/time seen: 11/22/19 13:19 Interval history: patient is on the ventilator in the ICU. He opens his eyes in regards examiner but does not interact. He seems to have pain everywhere. Review of Systems Review of Systems: ROS unobtainable: Yes unobtainable due to medical condition Exam Narrative: Exam Narrative: Well developed ill looking male on the ventilator in the ICU. Lungs symmetric and coarse Heart regular rate and rhythm no rub or gallop Abdomen bowel sounds positive Extremities one to2+ edema He is developing contractures Skin no rash. It is somewhat dry Objective Data Vital Signs Vital Signs: Vital Signs - 24 hr 11/21/19 13:33 11/21/19 13:34 11/21/19 13:41 Temperature Pulse Rate 108 H 108 H 108 H Respiratory Rate 29 H 27 H Blood Pressure Pulse Oximetry 96 11/21/19 14:00 11/21/19 16:00 11/21/19 16:34 Temperature 37.3 C Pulse Rate 96 103 H 90 Respiratory Rate 25 H 24 H Blood Pressure 119/82 114/53 L Pulse Oximetry 99 99 100 11/21/19 18:00 11/21/19 19:34 11/21/19 19:35 Temperature Pulse Rate 99 99 100 Respiratory Rate 28 H 21 H Blood Pressure 101/47 L Pulse Oximetry 98 100 11/21/19 19:41 11/21/19 20:00 11/21/19 20:59 Temperature 37.5 C 37.3 C Pulse Rate 99 100 96 Respiratory Rate 27 H 27 H 36 H Blood Pressure 107/57 L 180/52 H Pulse Oximetry 98 96 11/21/19 21:30 11/21/19 21:45 11/21/19 22:00 Temperature Pulse Rate 98 98 103 H Respiratory Rate 25 H Blood Pressure 111/56 L 94/68 L 108/68 Pulse Oximetry 99 11/21/19 22:15 11/21/19 22:25 11/21/19 22:45 Temperature 37.2 C Pulse Rate 112 H 101 H 101 H Respiratory Rate 36 H Blood Pressure 73/50 L 116/56 L Pulse Oximetry 97 11/22/19 00:00 11/22/19 01:33 11/22/19 01:40 Temperature 37.4 C Pulse Rate 101 H 102 H 104 H Respiratory Rate 23 H 24 H 29 H Blood Pressure 98/51 L Pulse Oximetry 100 100 11/22/19 01:41 11/22/19 04:00 11/22/19 04:33 Temperature 37.2 C Pulse Rate 104 H 104 H 99 Respiratory Rate 26 H 17 Blood Pressure 108/83 98/51 L Pulse Oximetry 100 99 99 11/22/19 05:32 11/22/19 08:00 11/22/19 08:13 Temperature 37.4 C Pulse Rate 96 102 H 104 H Respiratory Rate 22 H 28 H Blood Pressure 115/55 L 126/53 L Pulse Oximetry 99 100 99 11/22/19 08:15 11/22/19 08:25 11/22/19 10:00 Temperature Pulse Rate 104 H 102 H 100 Respiratory Rate 32 H 33 H 21 H Blood Pressure 114/59 L Pulse Oximetry 100 11/22/19 11:18 Temperature Pulse Rate 99 Respiratory Rate Blood Pressure Pul
--- NOTE | 2019-11-22 13:58 | WPDINTPN ---
Progress Note: A&P Assessment and Plan (1) Acute respiratory failure: Code(s): J96.00 - Acute respiratory failure, unspecified whether with hypoxia or hypercapnia Status: Acute Assessment and Plan: - patient on mechanical ventilation - patient now status post tracheostomy on 10/30/2019 - patient had a a ultrasound-guided thoracentesis done on 10/26 on right and 150 mL fluid was removed with culture remained negative. - patient on ASV mode of ventilation and tolerating, 30% FiO2 and peep of 5 . He has been placed on pressure support ventilation For 1 hour. Will not attempt SBT trial today as he is mildly tachypneic. - Continue physical and occupational therapy to work with the patient - appreciate pulmonology evaluation and recommendation (2) Severe sepsis: Code(s): A41.9 - Sepsis, unspecified organism; R65.20 - Severe sepsis without septic shock Status: Acute Assessment and Plan: RESOLVED - status post successful treatment of Linda peritonitis with anti fungal therapy For 2 weeks. 11/06/2019: CT chest/abdomen /pelvis showed perforation of the posterior fundus of the stomach with splenic infarct and fluid collection , status post CT-guided placement of a drain with purulent drainage - cultures from abscess on the posterior aspect of the stomach growing Enterococcus, - leukocytosis persists, ID following, continue Vancomycin #/ - 11/16/2019 abdominal x-ray with water-soluble contrast showed persistent extravasation of contrast to the defect in the gastric fundus with drainage by the left upper quadrant percutaneous drain (3) Peritonitis: Onset Date: ~10/2019 Code(s): K65.9 - Peritonitis, unspecified Status: Acute Assessment and Plan: status post treatment of Linda peritonitis - status post removal of peritoneal dialysis catheter on 10/21/2019, - SILVA drain has now been removed by surgery service. Has completed antibiotics for Enterococcus in the peritoneal fluid. (4) Aspiration pneumonia: Code(s): J69.0 - Pneumonitis due to inhalation of food and vomit Status: Acute Assessment and Plan: completed course of antibiotics (5) Encephalopathy: Code(s): G93.40 - Encephalopathy, unspecified Status: Acute Assessment and Plan: - was improving, normal patient only opens his eyes intermittently but does not follow simple commands - dropped his hemoglobin was no obvious bleed, patient on heparin infusion, CT scan of the brain on 11/15/2019: Unchanged mild scattered white matter hypoattenuation consistent with chronic small-vessel ischemic disease. No acute intracranial process. Increasing small left and large right otomastoiditis effusion - patient is off all sedation - encephalopathy likely multifactorial related to metabolic /uremic encephalopathy, infectious encephalopathy, medication related, critical care encephalopathy. He is not following command. He at times track people in the room with eye movements but it is intermittent only And I am not show with a it is purposeful. - EEG was done on 10/20/2019 Which showed significant slowing, likely related to severe encephalopathy. No epileptiform discharges were seen - patient did have a CT scan of the brain on 10/18/2019: was negative for any acute intracranial pathology (6) Cardiorespiratory arrest: Code(s): I46.9 - Cardiac arrest, cause unspecified Status: Acute Assessment and Plan: PEA arrest on 10/13/2019 likely due to aspiration, ROSC after 1 round of epinephrine - post arrest pt was following commands and so did not require hypothermia protocol (7) ESRD (end stage renal disease) on dialysis: Code(s): N18.6 - End stage renal disease; Z99.2 - Dependence on renal dialysis Status: Acute Assessment and Plan: patient with end-stage renal disease on peritoneal dialysis, FUNGAL PERITONITIS
[2019-11-22 17:50] LABS: Glucose Point of Care 122 (65-105)
[2019-11-22 20:56] LABS: Glucose Point of Care 128 (65-105)
[2019-11-22 23:04] LABS: Glucose Point of Care 121 (65-105)
[2019-11-23] VITALS (47 sets, daily range): BP systolic 74–163; BP diastolic 46–90; PULSE 96–134; RESP 19–37; TEMP 35.5–37.3; O2SAT 92–100
[2019-11-23] MEDS: IPRATROPIUM BR 0.02% INH SOLN 0.5 MG/2.5 ML VIAL INHALATION ×4 (02:22→22:00)
[2019-11-23] MEDS: CENTRAL LINE FLUSH 10 ML IV PUSH ×3 (04:54→21:02)
[2019-11-23 05:22] LABS: Basophils Absolute Auto 0.3 K/mm3 (0.0-0.1); Basophils Percent Auto 1.5 % (0.2-1.2); Eosinophils Absolute Auto 0.9 K/mm3 (0-0.3); Eosinophils Percent Auto 5.3 % (0-4.4); Hematocrit 22.3 % (42.0-52.0); Hemoglobin 7.5 g/dL (14.0-18.0); Immature Granulocyte Absolute 0.23 K/mm3 (0.00-0.031); Immature Granulocyte Percent A 1.4 % (0-0.5); Lymphocytes Absolute Auto 4.03 K/mm3 (0.9-3.2); Lymphocytes Percent Auto 23.9 % (18.3-44.2); Mean Corpuscular HGB Conc 33.6 g/dl (32-36); Mean Corpuscular Hemoglobin 33.3 pg (26-34); Mean Corpuscular Volume 99.1 fl (80-100); Mean Platelet Volume 10.6 fl (7.4-10.4); Monocytes Absolute Auto 2.8 K/mm3 (0.1-0.6); Monocytes Percent Auto 16.6 % (2.6-8.5); Neutrophils Absolute Auto 8.6 K/mm3 (1.3-6.7); Neutrophils Percent Auto 51.3 % (45.5-73.1); Platelet Count Result 312 k/mm3 (150-375); Red Blood Count 2.25 M/mm3 (4.6-6.20); Red Cell Distribution Width 18.9 % (11.5-14.5); White Blood Count 16.8 K/mm3 (4.5-10.0)
[2019-11-23] MEDS: LEVOTHYROXINE SODIUM INJ 100 MCG/5 ML VIAL 50 MCG IV PUSH (05:35)
[2019-11-23] MEDS: SUCRALFATE SUSP 100 MG/ML 10 ML UDC 1000 MG PO ×3 (05:36→16:42)
[2019-11-23 05:42] LABS: INR 1.3; Prothrombin Time 15.9 Seconds (11.1-14.7)
[2019-11-23 05:43] LABS: Partial Thromboplastin Time 77.8 SECONDS (22.3-36.8)
[2019-11-23 05:50] LABS: Alanine Aminotransferase 51 U/L (4-50); Albumin Level 1.9 g/dL (3.5-5.1); Alkaline Phosphatase 283 U/L (38-126); Anion Gap 10 mmol/L (8-16); Aspartate Amino Transferase 99 U/L (17-59); Bilirubin,Total 0.5 mg/dL (0.2-1.3); Blood Urea Nitrogen 90 mg/dL (9-20); Calcium 6.9 mg/dL (8.4-10.2); Carbon Dioxide 24 mmol/L (22-30); Chloride 88 mmol/L (98-107); Estimated CRCL calculation 15 ml/min; Estimated Glomerular Filt Rate 20; Glucose 138 mg/dL (75-110); Magnesium 2.1 mg/dL (1.6-2.3); Phosphorus 9.1 mg/dL (2.5-4.5); Sodium 122 mmol/L (137-145)
[2019-11-23 06:08] LABS: Potassium 5.1 mmol/L (3.4-5.0)
[2019-11-23] MEDS: HEPARIN SOD/D5W 100 UNITS/ML 25,000 UNITS/250 ML BAG 11 UNITS IV CONT (06:43)
[2019-11-23] MEDS: MIDODRINE HCL 10 MG TABLET PO ×3 (09:32→16:42)
[2019-11-23] MEDS: NEOMYCIN/POLYMYXIN/BACITRACIN OINTMENT 15 GM TUBE 1 APPLIC TOPICAL (09:33)
[2019-11-23] MEDS: PANTOPRAZOLE SODIUM IV 40 MG VIAL IV PUSH ×2 (09:33→21:02)
[2019-11-23] MEDS: SILVERGEL (ELTA) 45 ML 1 APPLIC TOPICAL (09:34)
[2019-11-23] MEDS: INSULIN DETEMIR 100 UNITS/ML 12 UNITS SUB-Q ×2 (09:36→20:58)
[2019-11-23] MEDS: FAT EMULSIONS IV 20% 250 ML 20.8 ML IVPB (09:46)
[2019-11-23 11:43] LABS: Glucose Point of Care 176 (65-105)
--- NOTE | 2019-11-23 12:53 | WPDINTPN ---
Progress Note: A&P Assessment and Plan (1) Acute respiratory failure: Code(s): J96.00 - Acute respiratory failure, unspecified whether with hypoxia or hypercapnia Status: Acute Assessment and Plan: - patient on mechanical ventilation - patient now status post tracheostomy on 10/30/2019 - patient had a a ultrasound-guided thoracentesis done on 10/26 on right and 150 mL fluid was removed with culture remained negative. - patient on ASV mode of ventilation and tolerating, 30% FiO2 and peep of 5 . He has been placed on pressure support ventilation For 1 hour. Will not attempt SBT trial today as he is mildly tachypneic. - Continue physical and occupational therapy to work with the patient (2) Severe sepsis: Code(s): A41.9 - Sepsis, unspecified organism; R65.20 - Severe sepsis without septic shock Status: Acute Assessment and Plan: RESOLVED - status post successful treatment of Linda peritonitis with anti fungal therapy For 2 weeks. 11/06/2019: CT chest/abdomen /pelvis showed perforation of the posterior fundus of the stomach with splenic infarct and fluid collection , status post CT-guided placement of a drain with purulent drainage - cultures from abscess on the posterior aspect of the stomach growing Enterococcus, - leukocytosis persists, ID following, completed Vancomycin #12/25 - 11/16/2019 abdominal x-ray with water-soluble contrast showed persistent extravasation of contrast to the defect in the gastric fundus with drainage by the left upper quadrant percutaneous drain antibiotics per infectious disease service (3) Peritonitis: Onset Date: ~10/2019 Code(s): K65.9 - Peritonitis, unspecified Status: Acute Assessment and Plan: status post treatment of Linda peritonitis - status post removal of peritoneal dialysis catheter on 10/21/2019, - SILVA drain has now been removed by surgery service. Has completed antibiotics for Enterococcus in the peritoneal fluid. (4) Aspiration pneumonia: Code(s): J69.0 - Pneumonitis due to inhalation of food and vomit Status: Acute Assessment and Plan: completed course of antibiotics (5) Encephalopathy: Code(s): G93.40 - Encephalopathy, unspecified Status: Acute Assessment and Plan: - was improving, normal patient only opens his eyes intermittently but does not follow simple commands - dropped his hemoglobin was no obvious bleed, patient on heparin infusion, CT scan of the brain on 11/15/2019: Unchanged mild scattered white matter hypoattenuation consistent with chronic small-vessel ischemic disease. No acute intracranial process. Increasing small left and large right otomastoiditis effusion - patient is off all sedation - encephalopathy likely multifactorial related to metabolic /uremic encephalopathy, infectious encephalopathy, medication related, critical care encephalopathy. He is not following command. He at times track people in the room with eye movements but it is intermittent only - EEG was done on 10/20/2019 Which showed significant slowing, likely related to severe encephalopathy. No epileptiform discharges were seen - patient did have a CT scan of the brain on 10/18/2019: was negative for any acute intracranial pathology (6) Cardiorespiratory arrest: Code(s): I46.9 - Cardiac arrest, cause unspecified Status: Acute Assessment and Plan: PEA arrest on 10/13/2019 likely due to aspiration, ROSC after 1 round of epinephrine - post arrest pt was following commands and so did not require hypothermia protocol (7) ESRD (end stage renal disease) on dialysis: Code(s): N18.6 - End stage renal disease; Z99.2 - Dependence on renal dialysis Status: Acute Assessment and Plan: patient with end-stage renal disease on peritoneal dialysis, FUNGAL PERITONITIS - removal of peritoneal dialysis catheter and i
[2019-11-23] MEDS: CALCIUM GLUC 1,000 MG/NS 50 ML 1,000 MG/50 ML BAG 100 MG IVPB (13:46)
--- NOTE | 2019-11-23 15:24 | PM.PNNEP ---
Progress Note: A&P Assessment and Plan (1) ESRD (end stage renal disease) on dialysis: Code(s): N18.6 - End stage renal disease; Z99.2 - Dependence on renal dialysis Status: Acute Assessment and Plan: HD today and continue M/W/F schedule for now blood pressure usually runs low on the treatment limiting fluid removal follow electrolytes, volume status, and clearance (2) Gastric perforation: Code(s): K25.5 - Chronic or unspecified gastric ulcer with perforation Status: Acute Assessment and Plan: as noted by recent CT imaging complicated by perisplenic abscess s/p drain placement by IR last imaging demonstrated gastric leak still present continue current therapy (3) Peritonitis (acute) generalized: Code(s): K65.0 - Generalized (acute) peritonitis Status: Acute Assessment and Plan: PD fluid cultures growing yeast s/p PD catheter removal and washout completed 2 week course of antifungal therapy (4) Hyponatremia: Onset Date: Unknown Code(s): E87.1 - Hypo-osmolality and hyponatremia Status: Acute Assessment and Plan: fluctuates -- improves with dialysis continue to follow (5) Cardiorespiratory arrest: Code(s): I46.9 - Cardiac arrest, cause unspecified Status: Acute Assessment and Plan: presumably precipitated by aspiration now has a tracheostomy remains on mechanical ventilation (6) Encephalopathy: Code(s): G93.40 - Encephalopathy, unspecified Status: Acute Assessment and Plan: some improvement noted but fluctuates continue supportive care Will continue to follow. Subjective Date/time seen: 11/23/19 15:24 Chart reviewed since last seen -- remains ventilator dependent; attempts at aggressive fluid removal with dialysis has not helped significantly with regard to weaning from the ventilator; otherwise, no significant change; due for dialysis today. Exam Narrative: Exam Narrative: General: ill-appearing male in NAD; s/p tracheostomy Heart: irregular rhythm; no rub Lungs: coarse and diminished breath sounds Abdomen: soft, nontender, nondistended, positive bowel sounds Extremities: no cyanosis or clubbing; 1+ edema; contractures developing Skin: warm and intact Objective Data Vital Signs Vital Signs: Vital Signs Temp Pulse Resp BP Pulse Ox 11/23/19 14:49 103 H 30 H 11/23/19 14:45 106 H 100 11/23/19 14:40 106 H 35 H 11/23/19 14:00 104 H 30 H 102/49 L 100 11/23/19 12:00 96 27 H 106/46 L 100 11/23/19 11:44 37.1 C 11/23/19 11:30 101 H 100 11/23/19 10:00 97 25 H 79/57 L 97 11/23/19 09:18 96 34 H 11/23/19 09:06 99 100 11/23/19 09:05 102 H 31 H 11/23/19 08:02 36.5 C 11/23/19 08:00 100 28 H 95/59 L 100 11/23/19 05:50 109 H 25 H 114/72 98 11/23/19 04:00 37.2 C 99 25 H 113/83 100 11/23/19 02:28 106 H 34 H 11/23/19 02:25 104 H 100 11/23/19 02:22 104 H 36 H 11/23/19 01:38 105 H 25 H 127/78 99 11/23/19 00:00 37.2 C 105 H 25 H 163/68 H 99 11/22/19 23:27 103 H 100 11/22/19 21:26 108 H 29 H 136/68 99 11/22/19 20:33 108 H 32 H 11/22/19 20:23 107 H 100 11/22/19 20:00 36.6 C 108 H 24 H 95/67 L 98 11/22/19 18:00 101 H 31 H 113/40 L 99 11/22/19 16:50 109 H 99 11/22/19 16:00 36.4 C 102 H 28 H 101/62 100 Intake/Output Intake/Output: Intake & Output 11/20/19 11/21/19 11/22/19 11/23/19 23:59 23:59 23:59 23:59 Intake Total 2808.9 2371 2365 147 Output Total 2890 458 350 225 Balance -81.1 3 2014 Meds/Results Medications: Active Medications Generic Name Dose Route Start Last Admin Trade Name Freq PRN Reason Stop Dose Admin Acetaminophen 650 mg 11/20/19 16:02 11/20/19 16:08 Tylenol Elixir FEED TUBE 650 mg Q6H PRN Administration Mild Pain (1-3) or Fever Albuterol 2.5 mg
--- NOTE | 2019-11-23 16:31 | PM.IMPN ---
Progress Note: A&P Assessment and Plan (1) Gastric perforation: Code(s): K25.5 - Chronic or unspecified gastric ulcer with perforation Status: Acute Assessment and Plan: 11/22/2019 Interval history: 78-year-old male with history of end-stage renal disease on peritoneal dialysis presented emergency department had a cardiac arrest ROSC after 1 round of epinephrine per protocol ROSC, with shortness of breath and hypoxic patient was intubated currently on vent, patient may have aspirated pneumonia, patient in septic shock and on pressor, patient being treated with Levaquin, vancomycin and Flagyl, discussed with watch mechanic prognosis is poor we appreciate watch mechanic, patient is seen by Dr. Aguilar nephrology for peritoneal dialysis, [employer] Operator had spoken with patient's , she would like to keep full code and continue to treat the patient. septic shock resolved and patient is off Levophed, septic shock most likely secondary to aspiration pneumonia possibly peritonitis and treated with Flagyl cefepime and ceftazidime intraperitoneal by nephrology, patient is his leukocytosis etiology uncertain seen by Dr. Rowe and watch mechanic, stopped all antibiotic and has started the patient vancomycin and aztreonam, meanwhile patient was seen by surgery and peritoneal dialysis catheter was removed and now patient is on hemodialysis, patient intubated having regular dialysis, unable to wean the patient off the ventilator,pt has PEG and Sp trache. From my previous notes. Nephrology, and discussed with watch mechanic prognosis is poor now GI abscess more difficult to transfer the patient to LTAC Long history, family reluctant on hospice. Pt has PEG and Trache complicated with drain for perforation of the posterior fundus of the stomach with splenic infarct and fluid collection and drain placement ID ICU, surgery and nephrology rounding on patient there are no new issues will continue follow patient today patient's present in the room, earlier patient spoke with watch mechanic and now patient is DNR, had a long discussion with the patient's , she is considering withdrawing care but not today. patient has a poor prognosis., on 11/15 I miss wrote the patient was taken off the ventilator and family had withdrawn the care there was not right patient family has continue current treatment and patient is on ventilator until further recommendation from thefamily, discussed with watch mechanic today patient liver enzymes elevated acute hepatitis panel is negative, abdominal ultrasound showed Cholelithiasis and mild gallbladder distention without additional findings of acute cholecystitis. patient is seen by surgery Service on 11/19 for perforation bowel recommending if the drainage stops may repeat contrast study to evaluate if the perforation has healed before restarting enteral feeding, today patient has 15cc drainage, and 0n 11/20 patient was seen by Dr Aguilar had dry filtration dialysis will continue to monitor and further recommendation to follow family still has not decided to withdraw care prognosis is poor. (2) Severe sepsis: Code(s): A41.9 - Sepsis, unspecified organism; R65.20 - Severe sepsis without septic shock Status: Acute Assessment and Plan: Likely secondary to peritonitis, his dialysis catheter was removed however now he has a gastric perforation leaking into the peritoneum. See above ID rounding (3) ESRD (end stage renal disease) on dialysis: Code(s): N18.6 - End stage renal disease; Z99.2 - Dependence on renal dialysis Status: Acute Assessment and Plan: Nephrology rounding (4) Ventilator dependence: Code(s): Z99.11 - Dependence on respirator [ventilator] status Status: Acute Assessment and Plan: Icu rounding Subjective Date/time seen: 11/22/2019 Interval history: 78-year-old male with history of end-stage renal disease on peritoneal dialysis presented emergency de
--- NOTE | 2019-11-23 16:36 | PM.IMPN ---
Progress Note: A&P Assessment and Plan (1) Gastric perforation: Code(s): K25.5 - Chronic or unspecified gastric ulcer with perforation Status: Acute Assessment and Plan: 11/23/19 16:36 Interval history: 78-year-old male with history of end-stage renal disease on peritoneal dialysis presented emergency department had a cardiac arrest ROSC after 1 round of epinephrine per protocol ROSC, with shortness of breath and hypoxic patient was intubated currently on vent, patient may have aspirated pneumonia, patient in septic shock and on pressor, patient being treated with Levaquin, vancomycin and Flagyl, discussed with fire services plumber prognosis is poor we appreciate fire services plumber, patient is seen by Dr. Aguilar nephrology for peritoneal dialysis, Food Processor had spoken with patient's , she would like to keep full code and continue to treat the patient. septic shock resolved and patient is off Levophed, septic shock most likely secondary to aspiration pneumonia possibly peritonitis and treated with Flagyl cefepime and ceftazidime intraperitoneal by nephrology, patient is his leukocytosis etiology uncertain seen by Dr. Rowe and fire services plumber, stopped all antibiotic and has started the patient vancomycin and aztreonam, meanwhile patient was seen by surgery and peritoneal dialysis catheter was removed and now patient is on hemodialysis, patient intubated having regular dialysis, unable to wean the patient off the ventilator,pt has PEG and Sp trache. From my previous notes. Nephrology, and discussed with fire services plumber prognosis is poor now GI abscess more difficult to transfer the patient to LTAC Long history, family reluctant on hospice. Pt has PEG and Trache complicated with drain for perforation of the posterior fundus of the stomach with splenic infarct and fluid collection and drain placement ID ICU, surgery and nephrology rounding on patient there are no new issues will continue follow patient today patient's present in the room, earlier patient spoke with fire services plumber and now patient is DNR, had a long discussion with the patient's , she is considering withdrawing care but not today. patient has a poor prognosis., on 11/15 I miss wrote the patient was taken off the ventilator and family had withdrawn the care there was not right patient family has continue current treatment and patient is on ventilator until further recommendation from thefamily, discussed with fire services plumber today patient liver enzymes elevated acute hepatitis panel is negative, abdominal ultrasound showed Cholelithiasis and mild gallbladder distention without additional findings of acute cholecystitis. patient is seen by surgery Service on 11/19 for perforation bowel recommending if the drainage stops may repeat contrast study to evaluate if the perforation has healed before restarting enteral feeding, today patient has 15cc drainage, today patient is seen by Dr. Funk and d/w patient will have HD, patient is critically ill and prognosis, family is still have not decided to withdraw care. (2) Severe sepsis: Code(s): A41.9 - Sepsis, unspecified organism; R65.20 - Severe sepsis without septic shock Status: Acute Assessment and Plan: Likely secondary to peritonitis, his dialysis catheter was removed however now he has a gastric perforation leaking into the peritoneum. See above ID rounding (3) ESRD (end stage renal disease) on dialysis: Code(s): N18.6 - End stage renal disease; Z99.2 - Dependence on renal dialysis Status: Acute Assessment and Plan: Nephrology rounding (4) Ventilator dependence: Code(s): Z99.11 - Dependence on respirator [ventilator] status Status: Acute Assessment and Plan: Icu rounding Subjective Date/time seen: 11/23/19 16:36 Interval history: 78-year-old male with history of end-stage renal disease on peritoneal dialysis presented emergency department had a cardiac arrest
[2019-11-23 18:02] LABS: Glucose Point of Care 151 (65-105)
[2019-11-23] MEDS: ALBUMIN HUMAN 25% 12.5 GM/50ML 100 ML 100 GM (21:43)
[2019-11-23] MEDS: ALBUTEROL SULFATE NEB 2.5 MG/0.5 ML INH INHALATION (22:00)
[2019-11-23] MEDS: EPOETIN ALFA-EPBX 10,000 UNITS/ML VIAL 10000 UNITS IV PUSH (22:41)
[2019-11-23] MEDS: HEPARIN SODIUM 1,000 UNITS/ML VIAL 6000 UNITS (23:25)
[2019-11-24] VITALS (32 sets, daily range): BP systolic 89–129; BP diastolic 39–103; PULSE 98–120; RESP 12–36; TEMP 36.6–37.6; O2SAT 96–100
[2019-11-24] MEDS: SUCRALFATE SUSP 100 MG/ML 10 ML UDC 1000 MG PO ×4 (00:01→17:28)
[2019-11-24 00:06] LABS: Glucose Point of Care 147 (65-105)
[2019-11-24] MEDS: ALBUTEROL SULFATE NEB 2.5 MG/0.5 ML INH INHALATION ×2 (02:43→09:29)
[2019-11-24] MEDS: IPRATROPIUM BR 0.02% INH SOLN 0.5 MG/2.5 ML VIAL INHALATION ×4 (02:43→20:57)
[2019-11-24] MEDS: HEPARIN SOD/D5W 100 UNITS/ML 25,000 UNITS/250 ML BAG 11 UNITS IV CONT (04:20)
[2019-11-24 05:30] LABS: Partial Thromboplastin Time 95.5 SECONDS (22.3-36.8)
[2019-11-24 05:45] LABS: Glucose Point of Care 99 (65-105)
[2019-11-24] MEDS: CENTRAL LINE FLUSH 10 ML IV PUSH ×2 (05:57→15:13)
[2019-11-24] MEDS: LEVOTHYROXINE SODIUM INJ 100 MCG/5 ML VIAL 50 MCG IV PUSH (05:59)
--- NOTE | 2019-11-24 08:15 | WPDINTPN ---
Progress Note: A&P Assessment and Plan (1) Acute respiratory failure: Code(s): J96.00 - Acute respiratory failure, unspecified whether with hypoxia or hypercapnia Status: Acute Assessment and Plan: - patient on mechanical ventilation - completed course of antibiotics for aspiration pneumonia - patient now status post tracheostomy on 10/30/2019 - patient had a a ultrasound-guided thoracentesis done on 10/26 on right and 150 mL fluid was removed with culture remained negative. - patient on ASV mode of ventilation and tolerating, 30% FiO2 and peep of 5 . respiratory rate goes up significantly on any manipulation or examination of patient Will not attempt SBT trial today as he is mildly tachypneic. - Continue physical and occupational therapy to work with the patient (2) Severe sepsis: Code(s): A41.9 - Sepsis, unspecified organism; R65.20 - Severe sepsis without septic shock Status: Acute Assessment and Plan: RESOLVED - status post successful treatment of Linda peritonitis with anti fungal therapy For 2 weeks. 11/06/2019: CT chest/abdomen /pelvis showed perforation of the posterior fundus of the stomach with splenic infarct and fluid collection , status post CT-guided placement of a drain with purulent drainage - cultures from abscess on the posterior aspect of the stomach growing Enterococcus, - leukocytosis persists, ID following, completed Vancomycin #12/25 - 11/16/2019 abdominal x-ray with water-soluble contrast showed persistent extravasation of contrast to the defect in the gastric fundus with drainage by the left upper quadrant percutaneous drain drain put out 30 cc overnight antibiotics per infectious disease service drain management per Surgical Service (3) Peritonitis: Onset Date: ~10/2019 Code(s): K65.9 - Peritonitis, unspecified Status: Acute Assessment and Plan: status post treatment of Linda peritonitis - status post removal of peritoneal dialysis catheter on 10/21/2019, - initial SILVA drains have now been removed by surgery service. Has completed antibiotics for Enterococcus in the peritoneal fluid. (4) Encephalopathy: Code(s): G93.40 - Encephalopathy, unspecified Status: Acute Assessment and Plan: - was improving, normal patient only opens his eyes intermittently but does not follow simple commands - dropped his hemoglobin was no obvious bleed, patient on heparin infusion, CT scan of the brain on 11/15/2019: Unchanged mild scattered white matter hypoattenuation consistent with chronic small-vessel ischemic disease. No acute intracranial process. Increasing small left and large right otomastoiditis effusion - patient is off all sedation - encephalopathy likely multifactorial related to metabolic /uremic encephalopathy, infectious encephalopathy, medication related, critical care encephalopathy. He is not following command. He at times track people in the room with eye movements but it is intermittent only - EEG was done on 10/20/2019 Which showed significant slowing, likely related to severe encephalopathy. No epileptiform discharges were seen - patient did have a CT scan of the brain on 10/18/2019: was negative for any acute intracranial pathology - he does appear in significant pain. I will continue to treat with p.r.n. fentanyl. (5) Cardiorespiratory arrest: Code(s): I46.9 - Cardiac arrest, cause unspecified Status: Acute Assessment and Plan: PEA arrest on 10/13/2019 likely due to aspiration, ROSC after 1 round of epinephrine - post arrest pt was following commands and so did not require hypothermia protocol (6) ESRD (end stage renal disease) on dialysis: Code(s): N18.6 - End stage renal disease; Z99.2 - Dependence on renal dialysis Status: Acute Assessment and Plan: patient with end-stage renal disease on peritoneal dialysis, GERRY
[2019-11-24 09:32] LABS: Glucose Point of Care 95 (65-105)
[2019-11-24] MEDS: MIDODRINE HCL 10 MG TABLET PO ×3 (09:33→17:28)
[2019-11-24] MEDS: NEOMYCIN/POLYMYXIN/BACITRACIN OINTMENT 15 GM TUBE 1 APPLIC TOPICAL (09:34)
[2019-11-24] MEDS: PANTOPRAZOLE SODIUM IV 40 MG VIAL IV PUSH ×2 (09:34→20:01)
[2019-11-24] MEDS: SILVERGEL (ELTA) 45 ML 1 APPLIC TOPICAL (09:35)
[2019-11-24] MEDS: INSULIN DETEMIR 100 UNITS/ML 12 UNITS SUB-Q ×2 (09:36→20:00)
[2019-11-24 10:01] LABS: Basophils Absolute Auto 0.2 K/mm3 (0.0-0.1); Eosinophils Absolute Auto 0.6 K/mm3 (0-0.3); Eosinophils Percent Auto 2.8 % (0-4.4); Immature Granulocyte Absolute 0.31 K/mm3 (0.00-0.031); Immature Granulocyte Percent A 1.5 % (0-0.5); Lymphocytes Absolute Auto 4.58 K/mm3 (0.9-3.2); Lymphocytes Percent Auto 22.6 % (18.3-44.2); Mean Corpuscular HGB Conc 32.5 g/dl (32-36); Mean Corpuscular Volume 101.5 fl (80-100); Mean Platelet Volume 10.6 fl (7.4-10.4); Monocytes Absolute Auto 3.2 K/mm3 (0.1-0.6); Monocytes Percent Auto 15.5 % (2.6-8.5); Neutrophils Absolute Auto 11.5 K/mm3 (1.3-6.7); Neutrophils Percent Auto 56.6 % (45.5-73.1); Platelet Count Result 305 k/mm3 (150-375); Red Blood Count 2.06 M/mm3 (4.6-6.20); Red Cell Distribution Width 19.3 % (11.5-14.5); White Blood Count 20.3 K/mm3 (4.5-10.0)
[2019-11-24 10:13] LABS: Hematocrit 20.9 % (42.0-52.0); Hemoglobin 6.8 g/dL (14.0-18.0)
--- NOTE | 2019-11-24 10:21 | P.PNNP_ITS ---
Progress Note: A&P Assessment and Plan (1) ESRD (end stage renal disease) on dialysis: Code(s): N18.6 - End stage renal disease; Z99.2 - Dependence on renal dialysis Status: Acute Assessment and Plan: * HD tomorrow and continue M/W/F schedule for now * blood pressure usually runs low on the treatment limiting fluid removal * follow electrolytes, volume status, and clearance (2) Gastric perforation: Code(s): K25.5 - Chronic or unspecified gastric ulcer with perforation Status: Acute Assessment and Plan: * as noted by recent CT imaging * complicated by perisplenic abscess * s/p drain placement by IR * last imaging demonstrated gastric leak still present * continue current therapy (3) Peritonitis (acute) generalized: Code(s): K65.0 - Generalized (acute) peritonitis Status: Acute Assessment and Plan: * PD fluid cultures growing yeast * s/p PD catheter removal and washout * completed 2 week course of antifungal therapy (4) Hyponatremia: Onset Date: Unknown Code(s): E87.1 - Hypo-osmolality and hyponatremia Status: Acute Assessment and Plan: * fluctuates -- improves with dialysis * continue to follow (5) Cardiorespiratory arrest: Code(s): I46.9 - Cardiac arrest, cause unspecified Status: Acute Assessment and Plan: * presumably precipitated by aspiration * now has a tracheostomy * remains on mechanical ventilation (6) Encephalopathy: Code(s): G93.40 - Encephalopathy, unspecified Status: Acute Assessment and Plan: * some improvement noted but fluctuates * continue supportive care Will continue to follow -- poor prognosis. Subjective Date/time seen: 11/24/19 10:21 Patient received dialysis last night and asis normally the case, not much fluid removal achieved despite IV albumin and midodrine; remains on ventilator support; no overall clinical change since I last saw him. Exam Narrative: Exam Narrative: General: ill-appearing male in NAD; s/p tracheostomy Heart: irregular rhythm; no rub Lungs: coarse and diminished breath sounds Abdomen: soft, nontender, nondistended, positive bowel sounds Extremities: no cyanosis or clubbing; 1+ edema; contractures developing Skin: warm and intact Objective Data Vital Signs Vital Signs: Vital Signs Temp Pulse Resp BP Pulse Ox 11/24/19 10:00 115 H 21 H 91/39 L 97 11/24/19 09:41 115 H 26 H 11/24/19 09:39 117 H 98 11/24/19 09:30 120 H 33 H 11/24/19 08:00 37.4 C 113 H 24 H 89/64 L 96 11/24/19 06:00 117 H 22 H 116/51 L 98 11/24/19 04:39 116 H 100 11/24/19 04:00 36.6 C 118 H 30 H 99/67 L 98 11/24/19 02:49 119 H 36 H 11/24/19 02:44 117 H 33 H 11/24/19 02:20 118 H 99 11/24/19 02:00 117 H 24 H 101/58 L 96 11/24/19 00:00 36.8 C 99 18 102/77 98 11/23/19 23:25 36.7 C 113 H 32 H 102/90 92 11/23/19 23:18 134 H 95/48 L 11/23/19 23:15 116 H 98/57 L 11/23/19 23:10 115 H 96 11/23/19 23:00 113 H 116/46 L 11/23/19 22:45 112 H 113/61 11/23/19 22:30 108 H 94/49 L
--- NOTE | 2019-11-24 10:21 | PM.PNNEP ---
Progress Note: A&P Assessment and Plan (1) ESRD (end stage renal disease) on dialysis: Code(s): N18.6 - End stage renal disease; Z99.2 - Dependence on renal dialysis Status: Acute Assessment and Plan: HD tomorrow and continue M/W/F schedule for now blood pressure usually runs low on the treatment limiting fluid removal follow electrolytes, volume status, and clearance (2) Gastric perforation: Code(s): K25.5 - Chronic or unspecified gastric ulcer with perforation Status: Acute Assessment and Plan: as noted by recent CT imaging complicated by perisplenic abscess s/p drain placement by IR last imaging demonstrated gastric leak still present continue current therapy (3) Peritonitis (acute) generalized: Code(s): K65.0 - Generalized (acute) peritonitis Status: Acute Assessment and Plan: PD fluid cultures growing yeast s/p PD catheter removal and washout completed 2 week course of antifungal therapy (4) Hyponatremia: Onset Date: Unknown Code(s): E87.1 - Hypo-osmolality and hyponatremia Status: Acute Assessment and Plan: fluctuates -- improves with dialysis continue to follow (5) Cardiorespiratory arrest: Code(s): I46.9 - Cardiac arrest, cause unspecified Status: Acute Assessment and Plan: presumably precipitated by aspiration now has a tracheostomy remains on mechanical ventilation (6) Encephalopathy: Code(s): G93.40 - Encephalopathy, unspecified Status: Acute Assessment and Plan: some improvement noted but fluctuates continue supportive care Will continue to follow -- poor prognosis. Subjective Date/time seen: 11/24/19 10:21 Patient received dialysis last night and asis normally the case, not much fluid removal achieved despite IV albumin and midodrine; remains on ventilator support; no overall clinical change since I last saw him. Exam Narrative: Exam Narrative: General: ill-appearing male in NAD; s/p tracheostomy Heart: irregular rhythm; no rub Lungs: coarse and diminished breath sounds Abdomen: soft, nontender, nondistended, positive bowel sounds Extremities: no cyanosis or clubbing; 1+ edema; contractures developing Skin: warm and intact Objective Data Vital Signs Vital Signs: Vital Signs Temp Pulse Resp BP Pulse Ox 11/24/19 10:00 115 H 21 H 91/39 L 97 11/24/19 09:41 115 H 26 H 11/24/19 09:39 117 H 98 11/24/19 09:30 120 H 33 H 11/24/19 08:00 37.4 C 113 H 24 H 89/64 L 96 11/24/19 06:00 117 H 22 H 116/51 L 98 11/24/19 04:39 116 H 100 11/24/19 04:00 36.6 C 118 H 30 H 99/67 L 98 11/24/19 02:49 119 H 36 H 11/24/19 02:44 117 H 33 H 11/24/19 02:20 118 H 99 11/24/19 02:00 117 H 24 H 101/58 L 96 11/24/19 00:00 36.8 C 99 18 102/77 98 11/23/19 23:25 36.7 C 113 H 32 H 102/90 92 11/23/19 23:18 134 H 95/48 L 11/23/19 23:15 116 H 98/57 L 11/23/19 23:10 115 H 96 11/23/19 23:00 113 H 116/46 L 11/23/19 22:45 112 H 113/61 11/23/19 22:30 108 H 94/49 L 11/23/19 22:15 116 H 98/52 L 11/23/19 22:14 107 H 19 11/23/19 22:00 111 H 25 H 97/49 L 99 11/23/19 21:45 111 H 96/52 L 11/23/19 21:30 113 H 84/50 L 11/23/19 21:15 112 H 91/51 L 11/23/19 21:00 112 H 94/50 L 11/23/19 20:45 113 H 86/49 L 11/23/19 20:30 114 H 92/50 L 11/23/19 20:26 110 H 76/63 L 11/23/19 20:15 110 H 75/52 L 11/23/19 20:10 109 H 100 11/23/19 20:00 37.1 C 112 H 29 H 96/56 L 96 11/23/19 19:47 108 H 96/56 L 11/23/19 19:35 37.2 C 105 H 29 H 102/53 L 97 11/23/19 18:00 107 H 24 H 99/58 L 100 09/07/20 17:40 104 H 98 Intake/Output Intake/Output: Intake & Output 11/21/19 11/22/19 11/23/19 11/24/19 23:59 23:59 23:59
[2019-11-24 10:45] LABS: Anion Gap 6 mmol/L (8-16); Blood Urea Nitrogen 48 mg/dL (9-20); Calcium 6.6 mg/dL (8.4-10.2); Carbon Dioxide 30 mmol/L (22-30); Chloride 95 mmol/L (98-107); Estimated CRCL calculation 28 ml/min; Estimated Glomerular Filt Rate 39; Glucose 85 mg/dL (75-110); Potassium 3.7 mmol/L (3.4-5.0); Sodium 131 mmol/L (137-145)
--- NOTE | 2019-11-24 11:02 | PM.EVENT ---
Event Note Event Note Event Note: I had a long meeting with patient's daughter who is also patient's POA. Meeting happened in presence of patient's nurse, clinical documentation specialist Emmanuel and human services case manager. we discussed patient's current condition and goals of care. She told me that she understands the patient's prognosis is poor overall but she feels her mother is not open to comfort care hospice at this time. Patient has been refused by LTAC in the past and family does not want patient to go to jail at this time. It appeared that there was still confused and not sure regarding goals of care whether it is continue treatment and life support versus hospice care.. She is going to discuss with patient's again today and let us know if they make any decision.
--- NOTE | 2019-11-24 11:52 | PCDIET ---
Nutrition Follow-Up Complete: Nutrition Diagnosis: Inadequate oral intake related to oral intubation as evidenced by NPO status. Nutrition Goal: Patient to meet estimated nutritional needs. Goal in progress. Patient receiving Clinimix E 5/15 at 80mL/hr with 250mL 20% lipids every 3 days. Last recorded weight is 73.7 kg which is down from last review. Bowel Motility: Last documented BM on 11/22/19. Labs Reviewed: Hgb (7.5), Hct (22.3), Glu (138), BUN (90), Cr (3.1), K (5.1), Na (122), Alb (1.9), Ade Ca (8.58) Meds Noted: Albuterol, Albumin, Fentanyl, Novolog, Levemir, Atrovent, Synthroid, Midodrine, Protonix, Sucralfate Additional Notes: MD ordering blood transfusion. Multiple skin issues documented. Recommend continuing present TPN at this time. Nutrition Monitoring and Evaluation: Follow up every Saturday/Saturday. Follow daily in ICU rounds.
[2019-11-24 11:59] LABS: Glucose Point of Care 83 (65-105)
--- NOTE | 2019-11-24 13:21 | PM.PNGS ---
Progress Note: A&P Assessment and Plan (1) Gastric perforation: Code(s): K25.5 - Chronic or unspecified gastric ulcer with perforation Status: Acute Assessment and Plan: Perforation contained with drain placement. Continue Protonix and Carafate. Could consider repeat contrast study to assess for healing of perforation if drain output tapers down to almost nothing. Would not recommend enteral feedings until contrast study has confirmed no further perforation. Additional Plan The last remaining SILVA drain from left lower quadrant has now been down since 11/15. The left upper quadrant drain that was in the lesser sac was removed 11/02. Will stop packing the site of the old peritoneal dialysis catheter since it is almost healed in. For both this site and the recently removed left lower quadrant SILVA drain site in the we will apply bacitracin or Neosporin ointment and cover with the 2 x 2 and tape. Probably consider repeat upper GI study to check on gastric perforation site only if drainage in or from the left upper quadrant percutaneous pigtail drops to nothing for several days. Subjective Subjective Date/Time Seen: 11/24/19 13:21 Patient seen in his ICU room. Patient is on a ventilator via tracheostomy. He has a G-tube which is currently connected to low intermittent suction. He does not attend to the examiner. He is not able to answer simple questions or shake his head yes or no. Apparently does open his eyes and look around the room occasionally. Does not follow commands. Review of Systems Review of Systems: ROS unobtainable: Yes unobtainable due to endotracheal tube, unobtainable due to medical condition and unobtainable due to mental status Gastrointestinal: Gastrointestinal: Reports as per HPI and Reports other ( Nurse reports mucous whitish drainage from G-tube. ) Comments: Does not typically see Any immediate drainage when giving the pink colored Carafate through the G-tube. Exam Narrative: Exam Narrative: afebrile Const: General: comfortable, no acute distress, ill appearing chronically and tired appearing Nutritional Appearance: average body habitus Limitations: no limitations Other: Appears comfortable on the ventilator at the moment. Eyes: General: appearance normal, both eyes and all related structures Sclera: sclerae normal EOM: EOMs intact bilaterally Neck: Neck: normal visual inspection, full ROM, no JVD and other ( right IJ tunneled dialysis catheter dry and intact.) Lymphatic: lymphadenopathy not noted Other: Incisions on right neck clean and dry. Triple lumen central line on the left without signs of purulent exudate. Patient now has a tracheostomy tube placed by ENT. Resp: Effort & Inspection: able to speak in complete sentences and no respiratory distress Auscultation: rhonchi right upper and diminished lung sounds bilateral Other: Patient intubated and ventilated. Cardio: Rate: tachycardic Rhythm: regular rhythm (appears to be in sinus rhythm with HR 62 on ekg monitor) and abnormal rhythm irregularly irregular Heart sounds: Murmur heart sound present GI: GI Palp: No abdominal tenderness and Yes Firmness to palpation present (GI) Auscultation: normal bowel sounds Other: All abdominal wounds inspected today Left upper quadrant drain site: well dressed and minimal drainage in drainage bag that is clearish white in color Site of previous left lower quadrant SILVA drain: without significant drainage but still within opening. Site of previous left lower quadrant peritoneal dialysis catheter: site now is almost sealed in. Probes less than 1 cm deep. Will cover with gauze and apply some antibiotic ointment now on stop packing. Side of right lower quadrant SILVA drain: healed. Skin: General skin exam: no rashes or lesions noted and pallor Other: Small open stable wound to medial aspect of left foot near 1st metatarsal head, no signs of infection or active drainage. Wo
--- NOTE | 2019-11-24 15:13 | PM.IMPN ---
Progress Note: A&P Assessment and Plan (1) Gastric perforation: Code(s): K25.5 - Chronic or unspecified gastric ulcer with perforation Status: Acute Assessment and Plan: Patient has poor prognosis, family is still have not decided to withdraw care. pt is DNR and is deteriorating. Bp low HR up. (2) Severe sepsis: Code(s): A41.9 - Sepsis, unspecified organism; R65.20 - Severe sepsis without septic shock Status: Acute Assessment and Plan: Likely secondary to peritonitis, his dialysis catheter was removed however now he has a gastric perforation leaking into the peritoneum. ID rounding (3) ESRD (end stage renal disease) on dialysis: Code(s): N18.6 - End stage renal disease; Z99.2 - Dependence on renal dialysis Status: Acute Assessment and Plan: Nephrology rounding (4) Ventilator dependence: Code(s): Z99.11 - Dependence on respirator [ventilator] status Status: Acute Assessment and Plan: Icu rounding with trache Subjective Date/time seen: 11/24/19 15:13 Interval history: Long history, family reluctant on hospice. Pt has PEG and Trache complicated with drain for perforation of the posterior fundus of the stomach with splenic infarct and fluid collection anddrain placement ID ICU, surgery and nephrology rounding on patient Exam Narrative: Exam Narrative: elderly frail Const: General: no acute distress Other: Chronically ill. HENMT: General nose exam: Normal nares present Other: trach in place Eyes: General: appearance normal, both eyes and all related structures Sclera: sclerae normal Neck: Neck: supple Other: no retraction Resp: Effort & Inspection: normal respiratory effort Auscultation: clear to auscultation bilaterally and diminished lung sounds Other: bilateral fair air entry with harsh breath Cardio: Rate: regular rate Rhythm: regular rhythm GI: Auscultation: normal bowel sounds Other: rectal tube in situ Skin: General skin exam: normal color Neuro: Other: Trache in place, encephalopathic, little response Extrem: General: normal to inspection Other: No edema of lower extremities Psych: Other: Objective Data Vital Signs Vital Signs: Vital Signs - 24 hr 11/23/19 16:00 11/23/19 16:03 11/23/19 17:40 Temperature 37.3 C Pulse Rate 101 H 104 H Respiratory Rate 24 H Blood Pressure Pulse Oximetry 97 98 11/23/19 18:00 11/23/19 19:35 11/23/19 19:47 Temperature 37.2 C Pulse Rate 107 H 105 H 108 H Respiratory Rate 24 H 29 H Blood Pressure 99/58 L 102/53 L 96/56 L Pulse Oximetry 100 97 11/23/19 20:00 11/23/19 20:10 11/23/19 20:15 Temperature 37.1 C Pulse Rate 112 H 109 H 110 H Respiratory Rate 29 H Blood Pressure 96/56 L 75/52 L Pulse Oximetry 96 100 11/23/19 20:26 11/23/19 20:30 11/23/19 20:45 Temperature Pulse Rate 110 H 114 H 113 H Respiratory Rate Blood Pressure 76/63 L 92/50 L 86/49 L Pulse Oximetry 11/23/19 21:00 11/23/19 21:15 11/23/19 21:30 Temperature Pulse Rate 112 H 112 H 113 H Respiratory Rate Blood Pressure 94/50 L 91/51 L 84/50 L Pulse Oximetry 11/23/19 21:45 11/23/19 22:00 11/23/19 22:14 Temperature Pulse Rate 111 H 111 H 107 H Respiratory Rate 25 H 19 Blood Pressure 96/52 L 97/49 L Pulse Oximetry 99 11/23/19 22:15 11/23/19 22:30 11/23/19 22:45 Temperature Pulse Rate 116 H 108 H 112 H Respiratory Rate Blood Pressure 98/52 L 94/49 L 113/61 Pulse Oximetry 11/23/19 23:00 11/23/19 23:10 11/23/19 23:15 Temperature Pulse Rate 113 H 115 H 116 H Respiratory Rate Blood Pressure 116/46 L 98/57 L Pulse Oximetry 96 11/23/19 23:18 11/23/19 23:25 11/24/19 00:00 Temperature 36.7 C 36.8 C Pulse Rate 134 H 113 H 99 Respiratory Rate 32 H 18 Blood Pressure 95/48 L 102/90 102/77 Pulse Oximetry 92 98 11/24/19 02:00 11/24/19 02:20 11/24/19 02:44 Temperature Pulse Rate 117 H
[2019-11-24] MEDS: SODIUM CHLORIDE 0.9% IV 250 ML 30 ML IV CONT (17:36)
[2019-11-24 17:48] LABS: Glucose Point of Care 98 (65-105)
[2019-11-24 19:57] LABS: Glucose Point of Care 115 (65-105)
[2019-11-25] VITALS (46 sets, daily range): BP systolic 80–139; BP diastolic 48–101; PULSE 93–121; RESP 14–33; TEMP 34.8–37.3; O2SAT 96–100
[2019-11-25] MEDS: CENTRAL LINE FLUSH 10 ML IV PUSH ×3 (00:44→21:01)
[2019-11-25] MEDS: SUCRALFATE SUSP 100 MG/ML 10 ML UDC 1000 MG PO ×4 (00:45→18:51)
[2019-11-25 00:47] LABS: Glucose Point of Care 136 (65-105)
[2019-11-25] MEDS: IPRATROPIUM BR 0.02% INH SOLN 0.5 MG/2.5 ML VIAL INHALATION ×4 (02:16→19:53)
[2019-11-25 04:23] LABS: Hematocrit 26.2 % (42.0-52.0); Hemoglobin 8.7 g/dL (14.0-18.0); Mean Corpuscular HGB Conc 33.2 g/dl (32-36); Mean Corpuscular Volume 99.2 fl (80-100); Mean Platelet Volume 10.8 fl (7.4-10.4); Platelet Count Result 334 k/mm3 (150-375); Red Blood Count 2.64 M/mm3 (4.6-6.20); Red Cell Distribution Width 20.1 % (11.5-14.5); White Blood Count 22.1 K/mm3 (4.5-10.0)
[2019-11-25 04:50] LABS: Alanine Aminotransferase 69 U/L (4-50); Albumin Level 2.2 g/dL (3.5-5.1); Alkaline Phosphatase 321 U/L (38-126); Anion Gap 8 mmol/L (8-16); Aspartate Amino Transferase 147 U/L (17-59); Bilirubin,Total 0.7 mg/dL (0.2-1.3); Blood Urea Nitrogen 63 mg/dL (9-20); Carbon Dioxide 27 mmol/L (22-30); Chloride 92 mmol/L (98-107); Estimated CRCL calculation 22 ml/min; Estimated Glomerular Filt Rate 31; Glucose 179 mg/dL (75-110); Magnesium 2.1 mg/dL (1.6-2.3); Potassium 4.1 mmol/L (3.4-5.0); Sodium 127 mmol/L (137-145)
[2019-11-25 05:53] LABS: Glucose Point of Care 182 (65-105)
[2019-11-25] MEDS: HEPARIN SOD/D5W 100 UNITS/ML 25,000 UNITS/250 ML BAG 11 UNITS IV CONT (05:55)
[2019-11-25] MEDS: LEVOTHYROXINE SODIUM INJ 100 MCG/5 ML VIAL 50 MCG IV PUSH (05:57)
[2019-11-25] MEDS: MIDODRINE HCL 10 MG TABLET PO ×3 (08:35→18:50)
[2019-11-25] MEDS: ALBUMIN HUMAN 25% 12.5 GM/50ML 50 ML IVPB (09:46)
[2019-11-25] MEDS: EPOETIN ALFA-EPBX 10,000 UNITS/ML VIAL 10000 UNITS IV PUSH (11:24)
--- NOTE | 2019-11-25 12:18 | P.PNNP_ITS ---
Progress Note: A&P Assessment and Plan (1) ESRD (end stage renal disease) on dialysis: Code(s): N18.6 - End stage renal disease; Z99.2 - Dependence on renal dialysis Status: Acute Assessment and Plan: * HD today and continue M/W/F schedule for now * blood pressure usually runs low on the treatment limiting fluid removal * follow electrolytes, volume status, and clearance (2) Gastric perforation: Code(s): K25.5 - Chronic or unspecified gastric ulcer with perforation Status: Acute Assessment and Plan: * as noted by recent CT imaging * complicated by perisplenic abscess * s/p drain placement by IR * last imaging demonstrated gastric leak still present * continue current therapy (3) Peritonitis (acute) generalized: Code(s): K65.0 - Generalized (acute) peritonitis Status: Acute Assessment and Plan: * PD fluid cultures growing yeast * s/p PD catheter removal and washout * completed 2 week course of antifungal therapy (4) Hyponatremia: Onset Date: Unknown Code(s): E87.1 - Hypo-osmolality and hyponatremia Status: Acute Assessment and Plan: * fluctuates -- improves with dialysis * continue to follow (5) Cardiorespiratory arrest: Code(s): I46.9 - Cardiac arrest, cause unspecified Status: Acute Assessment and Plan: * presumably precipitated by aspiration * now has a tracheostomy * remains on mechanical ventilation (6) Encephalopathy: Code(s): G93.40 - Encephalopathy, unspecified Status: Acute Assessment and Plan: * some improvement noted but fluctuates * continue supportive care Will continue to follow. Subjective Date/time seen: 11/25/19 12:18 Tolerating dialysis treatment at the time of my visit (seen on HD at ~ 11:45AM); more awake and interactive than previously; no apparent distress noted; at bedside and we discussed the situation. Exam Narrative: Exam Narrative: General: ill-appearing male in NAD; s/p tracheostomy Heart: irregular rhythm; no rub Lungs: coarse and diminished breath sounds Abdomen: soft, nontender, nondistended, positive bowel sounds Extremities: no cyanosis or clubbing; 1+ edema; contractures developing Skin: no nodules Objective Data Vital Signs Vital Signs: Vital Signs Temp Pulse Resp BP Pulse Ox 11/25/19 12:15 108 H 103/58 L 11/25/19 12:00 113 H 103/63 11/25/19 11:45 117 H 123/99 H 11/25/19 11:30 115 H 123/84 11/25/19 11:15 117 H 122/91 H 97 11/25/19 11:00 119 H 130/59 L 11/25/19 10:45 121 H 120/64 11/25/19 10:30 115 H 91/62 L 11/25/19 10:15 118 H 123/54 L 11/25/19 10:00 104 H 25 H 130/59 L 96 11/25/19 09:45 120 H 118/58 L 11/25/19 09:40 112 H 88/65 L 11/25/19 09:35 99 84/64 L 11/25/19 09:30 104 H 80/48 L 11/25/19 09:15 110 H 128/51 L 11/25/19 09:08 98 122/61 11/25/19 08:56 105 H 24 H 11/25/19 08:51 37.3 C 103 H 24 H 120/101 H 99 11/25/19 08:46 103 H 100 11/25/19 08:43 114 H 24 H 11/25/19 08:00 36.9 C 93 23 H 124/53 L 97 11/25/19 06:00 97 16 134/91 H 100 11/25/19 04:58 103 H 99 11/25/19 04:00 37.2 C 101 H 21 H 119/55 L 98 11/25/19 02:24 104 H 27 H
--- NOTE | 2019-11-25 12:18 | PM.PNNEP ---
Progress Note: A&P Assessment and Plan (1) ESRD (end stage renal disease) on dialysis: Code(s): N18.6 - End stage renal disease; Z99.2 - Dependence on renal dialysis Status: Acute Assessment and Plan: HD today and continue M/W/F schedule for now blood pressure usually runs low on the treatment limiting fluid removal follow electrolytes, volume status, and clearance (2) Gastric perforation: Code(s): K25.5 - Chronic or unspecified gastric ulcer with perforation Status: Acute Assessment and Plan: as noted by recent CT imaging complicated by perisplenic abscess s/p drain placement by IR last imaging demonstrated gastric leak still present continue current therapy (3) Peritonitis (acute) generalized: Code(s): K65.0 - Generalized (acute) peritonitis Status: Acute Assessment and Plan: PD fluid cultures growing yeast s/p PD catheter removal and washout completed 2 week course of antifungal therapy (4) Hyponatremia: Onset Date: Unknown Code(s): E87.1 - Hypo-osmolality and hyponatremia Status: Acute Assessment and Plan: fluctuates -- improves with dialysis continue to follow (5) Cardiorespiratory arrest: Code(s): I46.9 - Cardiac arrest, cause unspecified Status: Acute Assessment and Plan: presumably precipitated by aspiration now has a tracheostomy remains on mechanical ventilation (6) Encephalopathy: Code(s): G93.40 - Encephalopathy, unspecified Status: Acute Assessment and Plan: some improvement noted but fluctuates continue supportive care Will continue to follow. Subjective Date/time seen: 11/25/19 12:18 Tolerating dialysis treatment at the time of my visit (seen on HD at ~ 11:45AM); more awake and interactive than previously; no apparent distress noted; at bedside and we discussed the situation. Exam Narrative: Exam Narrative: General: ill-appearing male in NAD; s/p tracheostomy Heart: irregular rhythm; no rub Lungs: coarse and diminished breath sounds Abdomen: soft, nontender, nondistended, positive bowel sounds Extremities: no cyanosis or clubbing; 1+ edema; contractures developing Skin: no nodules Objective Data Vital Signs Vital Signs: Vital Signs Temp Pulse Resp BP Pulse Ox 11/25/19 12:15 108 H 103/58 L 11/25/19 12:00 113 H 103/63 11/25/19 11:45 117 H 123/99 H 11/25/19 11:30 115 H 123/84 11/25/19 11:15 117 H 122/91 H 97 11/25/19 11:00 119 H 130/59 L 11/25/19 10:45 121 H 120/64 11/25/19 10:30 115 H 91/62 L 11/25/19 10:15 118 H 123/54 L 11/25/19 10:00 104 H 25 H 130/59 L 96 11/25/19 09:45 120 H 118/58 L 11/25/19 09:40 112 H 88/65 L 11/25/19 09:35 99 84/64 L 11/25/19 09:30 104 H 80/48 L 11/25/19 09:15 110 H 128/51 L 11/25/19 09:08 98 122/61 11/25/19 08:56 105 H 24 H 11/25/19 08:51 37.3 C 103 H 24 H 120/101 H 99 11/25/19 08:46 103 H 100 11/25/19 08:43 114 H 24 H 11/25/19 08:00 36.9 C 93 23 H 124/53 L 97 11/25/19 06:00 97 16 134/91 H 100 11/25/19 04:58 103 H 99 11/25/19 04:00 37.2 C 101 H 21 H 119/55 L 98 11/25/19 02:24 104 H 27 H 11/25/19 02:17 96 98 11/25/19 02:16 104 H 27 H 11/25/19 02:00 102 H 28 H 120/67 100 11/25/19 00:00 37.3 C 117 H 24 H 111/75 100 11/24/19 23:21 119 H 99 11/24/19 22:00 105 H 24 H 113/68 100 11/24/19 21:02 105 H 33 H 11/24/19 20:59 105 H 100 11/24/19 20:57 113 H 26 H 11/24/19 20:00 37.5 C 119 H 26 H 126/85 100 11/24/19 18:00 106 H 24 H 112/48 L 98 11/24/19 17:43 109 H 100 11/24/19 16:00 37.0 C 103 H 18 106/62 98 11/24/19 15:25 37.4 C 100 14 129/103 H 98 11/24/19 15:14 102 H 99 11/24/19 15:11 111 H 32 H 11/24/19 15:02 37.3 C 98 12 124/49 L 96 11/24/19 14:02 37.3 C 108 H
[2019-11-25] MEDS: HEPARIN SODIUM 1,000 UNITS/ML VIAL 6000 UNITS (12:50)
--- NOTE | 2019-11-25 12:54 | PCDIET ---
ICU Rounding Note: Patient remains NPO on Clinimix E 07/30 at 80mL/hr with 250mL 20% lipids every 3 days. Last recorded weight is 77.5kg which is up from last review. +I/O. Undergoing dialysis today. Bowel Motility: FMS in place for liquid stools. Labs Reviewed: Hgb (9.9), Hct (26.2), Glu (179), BUN (63), Cr (2.1), Na (127), Alb (2.2), Ade Ca (8.44) Meds Noted: Albuterol, Levemir, Fentanyl, Atrovent, Heparin, Protonix, Novolog (held today), Synthroid, Midodrine Additional Notes: Patient edematous and weeping, per RN, with worsening wounds to multiple areas. Recommend continuing TPN. Following daily in ICU rounds. Assessing/reassessing every Saturday/Saturday.
[2019-11-25] MEDS: NEOMYCIN/POLYMYXIN/BACITRACIN OINTMENT 15 GM TUBE 1 APPLIC TOPICAL (13:18)
[2019-11-25] MEDS: SILVERGEL (ELTA) 45 ML 1 APPLIC TOPICAL (13:20)
[2019-11-25] MEDS: PANTOPRAZOLE SODIUM IV 40 MG VIAL IV PUSH ×2 (13:24→21:01)
[2019-11-25 13:29] LABS: Glucose Point of Care 161 (65-105)
--- NOTE | 2019-11-25 14:50 | P.PNINT_ITS ---
Progress Note: A&P Assessment and Plan (1) Acute respiratory failure: Code(s): J96.00 - Acute respiratory failure, unspecified whether with hypoxia or hypercapnia Status: Acute Assessment and Plan: - patient on mechanical ventilation - completed course of antibiotics for aspiration pneumonia - patient now status post tracheostomy on 10/30/2019 - patient had a a ultrasound-guided thoracentesis done on 10/26 on right and 150 mL fluid was removed with culture remained negative. - patient on ASV mode of ventilation and tolerating, 30% FiO2 and peep of 5 . respiratory rate goes up significantly on any manipulation or examination of patient Will not attempt SBT trial today as he is mildly tachypneic. - Continue physical and occupational therapy to work with the patient (2) Severe sepsis: Code(s): A41.9 - Sepsis, unspecified organism; R65.20 - Severe sepsis without septic shock Status: Acute Assessment and Plan: RESOLVED - status post successful treatment of Linda peritonitis with anti fungal therapy For 2 weeks. 11/06/2019: CT chest/abdomen /pelvis showed perforation of the posterior fundus of the stomach with splenic infarct and fluid collection , status post CT-guided placement of a drain with purulent drainage - cultures from abscess on the posterior aspect of the stomach growing Enterococcus, - leukocytosis persists, ID following, completed Vancomycin #12/25 - 11/16/2019 abdominal x-ray with water-soluble contrast showed persistent extravasation of contrast to the defect in the gastric fundus with drainage by the left upper quadrant percutaneous drain drain put out 30 cc overnight antibiotics per infectious disease service drain management per Surgical Service (3) Peritonitis: Onset Date: ~10/2019 Code(s): K65.9 - Peritonitis, unspecified Status: Acute Assessment and Plan: status post treatment of Linda peritonitis - status post removal of peritoneal dialysis catheter on 10/21/2019, - initial SILVA drains have now been removed by surgery service. Has completed antibiotics for Enterococcus in the peritoneal fluid. (4) Encephalopathy: Code(s): G93.40 - Encephalopathy, unspecified Status: Acute Assessment and Plan: - was improving, normal patient only opens his eyes intermittently but does not follow simple commands - dropped his hemoglobin was no obvious bleed, patient on heparin infusion, CT scan of the brain on 11/15/2019: Unchanged mild scattered white matter hypoattenuation consistent with chronic small-vessel ischemic disease. No acute intracranial process. Increasing small left and large right otomastoiditis effusion - patient is off all sedation - encephalopathy likely multifactorial related to metabolic /uremic encephalopathy, infectious encephalopathy, medication related, critical care encephalopathy. He is not following command. He at times track people in the room with eye movements but it is intermittent only - EEG was done on 10/20/2019 Which showed significant slowing, likely related to severe encephalopathy. No epileptiform discharges were seen - patient did have a CT scan of the brain on 10/18/2019: was negative for any acute intracranial pathology - he does appear in significant pain. I will continue to treat with p.r.n. fentanyl. (5) Cardiorespiratory arrest: Code(s): I46.9 - Cardiac arrest, cause unspecified Status: Acute Assessment and Plan: PEA arrest on 10/13/2019 likely due to aspiration, ROSC after 1 round of epinephrine
[2019-11-25] MEDS: ALBUTEROL SULFATE NEB 2.5 MG/0.5 ML INH INHALATION ×2 (15:06→19:53)
--- NOTE | 2019-11-25 16:57 | PM.IMPN ---
Progress Note: A&P Assessment and Plan (1) Gastric perforation: Code(s): K25.5 - Chronic or unspecified gastric ulcer with perforation Status: Acute Assessment and Plan: He is not a good candidate for surgery given his multiple comorbidities ( 3 or more organ systems in failure at this time respiratory, renal and GI, functional quadriplegia bedridden ). Completed antibiotics and antifungal medications for peritonitis.. Hospice care might be in this patient best interest, family has finally accepted to meet with the hospice team. (2) Severe sepsis: Code(s): A41.9 - Sepsis, unspecified organism; R65.20 - Severe sepsis without septic shock Status: Acute Assessment and Plan: Likely secondary to peritonitis, his dialysis catheter was removed however now he has a gastric perforation leaking into the peritoneum. Not on vasopressors now. Completed antibiotics (3) ESRD (end stage renal disease) on dialysis: Code(s): N18.6 - End stage renal disease; Z99.2 - Dependence on renal dialysis Status: Acute Assessment and Plan: cont HD thru RIJ HD cath (4) Ventilator dependence: Code(s): Z99.11 - Dependence on respirator [ventilator] status Status: Acute Assessment and Plan: Remains on ventilatory support. Subjective Date/time seen: Pt seen and examined, he seems more alert than previous days I have seen him however he still not following commands. 11/25/19 16:57 Exam Narrative: Exam Narrative: elderly frail Const: General: no acute distress Other: Chronically ill. Resp: Auscultation: crackles and rhonchi Other: Coarse breath sounds bilaterally Cardio: Rate: regular rate Rhythm: regular rhythm GI: Other: Non distended, soft Neuro: Other: Alert but not following commands Objective Data Vital Signs Vital Signs: Vital Signs - 24 hr 11/24/19 17:43 11/24/19 18:00 11/24/19 20:00 Temperature 99.5 F Pulse Rate 109 H 106 H 119 H Respiratory Rate 24 H 26 H Blood Pressure 112/48 L 126/85 Pulse Oximetry 100 98 100 11/24/19 20:57 11/24/19 20:59 11/24/19 21:02 Temperature Pulse Rate 113 H 105 H 105 H Respiratory Rate 26 H 33 H Blood Pressure Pulse Oximetry 100 11/24/19 22:00 11/24/19 23:21 11/25/19 00:00 Temperature 99.1 F Pulse Rate 105 H 119 H 117 H Respiratory Rate 24 H 24 H Blood Pressure 113/68 111/75 Pulse Oximetry 100 99 100 11/25/19 02:00 11/25/19 02:16 11/25/19 02:17 Temperature Pulse Rate 102 H 104 H 96 Respiratory Rate 28 H 27 H Blood Pressure 120/67 Pulse Oximetry 100 98 11/25/19 02:24 11/25/19 04:00 11/25/19 04:58 Temperature 99.0 F Pulse Rate 104 H 101 H 103 H Respiratory Rate 27 H 21 H Blood Pressure 119/55 L Pulse Oximetry 98 99 11/25/19 06:00 11/25/19 08:00 11/25/19 08:43 Temperature 98.5 F Pulse Rate 97 93 114 H Respiratory Rate 16 23 H 24 H Blood Pressure 134/91 H 124/53 L Pulse Oximetry 100 97 11/25/19 08:46 11/25/19 08:51 11/25/19 08:56 Temperature 99.2 F Pulse Rate 103 H 103 H 105 H Respiratory Rate 24 H 24 H Blood Pressure 120/101 H Pulse Oximetry 100 99 11/25/19 09:08 11/25/19 09:15 11/25/19 09:30 Temperature Pulse Rate 98 110 H 104 H Respiratory Rate Blood Pressure 122/61 128/51 L 80/48 L Pulse Oximetry 11/25/19 09:35 11/25/19 09:40 11/25/19 09:45 Temperature Pulse Rate 99 112 H 120 H Respiratory Rate Blood Pressure 84/64 L 88/65 L 118/58 L Pulse Oximetry 11/25/19 10:00 11/25/19 10:15 11/25/19 10:30 Temperature Pulse Rate 104 H 118 H 115 H Respiratory Rate 25 H Blood Pressure 130/59 L 123/54 L 91/62 L Pulse Oximetry 96 11/25/19 10:45 11/25/19 11:00 11/25/19 11:15 Temperature Pulse Rate 121 H 119 H 117 H Respiratory Rate Blood Pressure 120/64 130/59 L 122/91 H Pulse Oximetry 97 11/25/19 11:30 11/25/19 11:45 11/25/19 12:00 Temperature 98.2 F Pulse Rate 11
[2019-11-25 18:03] LABS: Glucose Point of Care 215 (65-105)
[2019-11-25] MEDS: INSULIN ASPART (*BKC) 100 UNITS/ML SUB-Q (18:58)
[2019-11-25] MEDS: INSULIN DETEMIR 100 UNITS/ML 12 UNITS SUB-Q (21:00)
[2019-11-26] VITALS (25 sets, daily range): BP systolic 98–169; BP diastolic 53–89; PULSE 89–129; RESP 14–31; TEMP 36.6–37.2; O2SAT 96–100
[2019-11-26 00:01] LABS: Glucose Point of Care 163 (65-105)
[2019-11-26] MEDS: SUCRALFATE SUSP 100 MG/ML 10 ML UDC 1000 MG PO ×5 (00:18→23:51)
[2019-11-26] MEDS: IPRATROPIUM BR 0.02% INH SOLN 0.5 MG/2.5 ML VIAL INHALATION ×4 (01:32→20:35)
[2019-11-26] MEDS: HEPARIN SOD/D5W 100 UNITS/ML 25,000 UNITS/250 ML BAG 11 UNITS IV CONT (03:38)
[2019-11-26 04:22] LABS: Basophils Absolute Auto 0.2 K/mm3 (0.0-0.1); Basophils Percent Auto 0.9 % (0.2-1.2); Eosinophils Absolute Auto 1.3 K/mm3 (0-0.3); Eosinophils Percent Auto 6.5 % (0-4.4); Hematocrit 25.9 % (42.0-52.0); Hemoglobin 8.4 g/dL (14.0-18.0); Immature Granulocyte Absolute 0.33 K/mm3 (0.00-0.031); Immature Granulocyte Percent A 1.7 % (0-0.5); Lymphocytes Absolute Auto 3.56 K/mm3 (0.9-3.2); Mean Corpuscular HGB Conc 32.4 g/dl (32-36); Mean Corpuscular Hemoglobin 32.4 pg (26-34); Mean Platelet Volume 10.4 fl (7.4-10.4); Monocytes Absolute Auto 2.3 K/mm3 (0.1-0.6); Monocytes Percent Auto 11.7 % (2.6-8.5); Neutrophils Absolute Auto 12.1 K/mm3 (1.3-6.7); Neutrophils Percent Auto 61.2 % (45.5-73.1); Platelet Count Result 336 k/mm3 (150-375); Red Blood Count 2.59 M/mm3 (4.6-6.20); Red Cell Distribution Width 19.8 % (11.5-14.5); White Blood Count 19.8 K/mm3 (4.5-10.0)
[2019-11-26 04:33] LABS: Partial Thromboplastin Time 62.5 SECONDS (22.3-36.8)
[2019-11-26 04:36] LABS: Alanine Aminotransferase 59 U/L (4-50); Albumin Level 2.2 g/dL (3.5-5.1); Alkaline Phosphatase 334 U/L (38-126); Anion Gap 6 mmol/L (8-16); Aspartate Amino Transferase 92 U/L (17-59); Bilirubin,Total 0.5 mg/dL (0.2-1.3); Blood Urea Nitrogen 45 mg/dL (9-20); Calcium 7.6 mg/dL (8.4-10.2); Carbon Dioxide 28 mmol/L (22-30); Chloride 97 mmol/L (98-107); Estimated CRCL calculation 33 ml/min; Estimated Glomerular Filt Rate 42; Glucose 147 mg/dL (75-110); Magnesium 2.1 mg/dL (1.6-2.3); Potassium 3.6 mmol/L (3.4-5.0); Sodium 131 mmol/L (137-145)
[2019-11-26] MEDS: HEPARIN SODIUM 5,000 UNITS/ML VIAL 2500 UNITS IV PUSH (04:43)
--- NOTE | 2019-11-26 05:29 | PCRCNOTE ---
PT didn't have an abg order asked PARVIZ Rodriguez and she said we will hold off till later in the morning and see if they want one or not.
[2019-11-26 05:41] LABS: Glucose Point of Care 145 (65-105)
[2019-11-26] MEDS: CENTRAL LINE FLUSH 10 ML IV PUSH ×3 (05:42→21:24)
[2019-11-26] MEDS: LEVOTHYROXINE SODIUM INJ 100 MCG/5 ML VIAL 50 MCG IV PUSH (05:43)
[2019-11-26] MEDS: FAT EMULSIONS IV 20% 250 ML 20 ML IVPB (09:13)
[2019-11-26] MEDS: SILVERGEL (ELTA) 45 ML 1 APPLIC TOPICAL (09:15)
[2019-11-26] MEDS: PANTOPRAZOLE SODIUM IV 40 MG VIAL IV PUSH ×2 (09:16→21:25)
[2019-11-26] MEDS: NEOMYCIN/POLYMYXIN/BACITRACIN OINTMENT 15 GM TUBE 1 APPLIC TOPICAL (09:16)
[2019-11-26] MEDS: INSULIN DETEMIR 100 UNITS/ML 12 UNITS SUB-Q ×2 (09:28→21:24)
[2019-11-26 11:20] LABS: Partial Thromboplastin Time 88.1 SECONDS (22.3-36.8)
--- NOTE | 2019-11-26 11:39 | PCDIET ---
ICU Rounding Note: Patient remains on Clinimix E 07/30 at 80mL/hr. Discussed with MD addition of daily lipids which was ordered. Total parenteral nutrition will now provide 1863kcal and 96g protein per day. Last recorded weight is 72.4kg which is decreased from last review. -I/O. Dialysis MWF continues. Bowel Motility: +BM today. Labs Reviewed: Hgb (8.4), Hct (25.9), Glu (147), BUN (45), Cr (1.6), Na (131), Alb (2.2) Meds Noted: Albuterol, Fentanyl, Heparin, Novolog, Levemir, Atrovent, Synthroid, Protonix, Sucralfate Additional Notes: No significant change in wounds reported. Following daily in ICU rounds. Assessing/reassessing every Saturday/Saturday.
--- NOTE | 2019-11-26 11:58 | WPDNEURCNPN ---
Assessment and Plan Assessment and plan (1) Encephalopathy: Code(s): G93.40 - Encephalopathy, unspecified Status: Acute Additional Plan chronic multiple conditions as outlined in the chart with the poor neurological status we can only obtain the EEG to evaluate further if necessary last CT scan revealed scattered white matter hypoattenuation consistent with chronic small vessel ischemic disease no evidence of epidural subdural empyema though there is left and right otomastoiditis with diffuse. Neurologically patient is not in need of any intervention Consult date: 11/26/19 Time Seen: 11:15 HPI: Ángel Fung is a 78 year old male admitted to the hospital with gastric perforation for which she was not a good candidate for surgery given his multiple comorbidities neurologic consultation has been obtained to evaluate the mental status Review of Systems Review of Systems: All systems reviewed & are unremarkable except as noted in HPI and below PMFSH Past Medical History Medical History Anemia of chronic disease Arthritis Back pain Bladder tumor Resected 09/15/2019 CKD stage 5 due to type 2 diabetes mellitus (Unknown) Coronary artery disease (Unknown) With history of stent in 2008 and 2014 Diabetic peripheral neuropathy End-stage renal disease on peritoneal dialysis Managed by Dr. Lauren Glaucoma Hearing loss With bilateral hearing aids Hyperlipidemia Hypertension (Unknown) Hypothyroidism (Unknown) Hypothyroidism Insulin dependent type 2 diabetes mellitus Myocardial infarct Osteomyelitis (~05/2015) Peripheral arterial disease History of multiple bilateral lower extremity stents. Peritonitis (acute) generalized Type 2 diabetes mellitus (Unknown) Urethral stricture Status post dilatation 09/15/2019 Surgical History Surgical History Amputation of fifth toe of right foot (~05/2015) History of colonoscopy with polypectomy Reportedly had a Colonoscopy in 2019 due to his chronic diarrhea and had findings of a cancerous polyp that was completely removed during the colonoscopy. This was performed in [place]. History of heart artery stent (~10/2014) 2008 and 2014 History of surgical removal of skin lesion Top of head and face. Basal cell carcinoma History of transurethral destruction of bladder lesion 09/15/2019 History of vascular surgery Bilateral lower extremity stents. Total of 4 stents in each leg Status post cataract extraction Status post cystourethroscopy with dilation of urethral stricture 09/15/2019 Family History Family History Mother , Age 87 [place] Heart disease Diabetes mellitus Cataract Father , Age 69 from Cancer Heart disease Lung cancer Sibling Diabetes mellitus Social History Social History Social History: The patient is and lives with his in [place]. They have 2 children. He served in [employer] for 3 years in [employer] [place] and is retired from factory work. He smoked up to 2 packs of cigarettes per day for about 17 years and quit in the 1970s. No alcohol or illicit substance use. He designates his , Dena, as his surrogate decision maker. Smoking packs per day: 2 Smoking cigarettes per day: 40.0 Years smoked: 17 Smoking pack-years: 34.00 Smoking status: Former smoker Tobacco type: cigarettes Alcohol intake: never Substance use: never Gender identity (if verbalized by the patient): Male Spiritual care concerns: No Meds Home Medications and Allergies Home Medications Medication Instructions Recorded Confirmed Type B complex-vitamin C-folic acid 0.8 1 tablet PO DAILY 03/24/19 10/13/19 History mg tablet carvedilol 25 mg tablet 25 mg PO BID 03/24/19 10/13/19 History clopid
[2019-11-26 12:07] LABS: Glucose Point of Care 137 (65-105)
--- NOTE | 2019-11-26 13:37 | PM.PNNEP ---
Progress Note: A&P Assessment and Plan (1) ESRD (end stage renal disease) on dialysis: Code(s): N18.6 - End stage renal disease; Z99.2 - Dependence on renal dialysis Status: Acute Assessment and Plan: HD tomorrow and may consider switching to T/T/S to accomodate other ICU patients blood pressure usually runs low on treatment limiting fluid removal follow electrolytes, volume status, and clearance (2) Gastric perforation: Code(s): K25.5 - Chronic or unspecified gastric ulcer with perforation Status: Acute Assessment and Plan: as noted by recent CT imaging complicated by perisplenic abscess s/p drain placement by IR last imaging demonstrated gastric leak still present continue current therapy (3) Peritonitis (acute) generalized: Code(s): K65.0 - Generalized (acute) peritonitis Status: Acute Assessment and Plan: PD fluid cultures growing yeast s/p PD catheter removal and washout completed 2 week course of antifungal therapy (4) Hyponatremia: Onset Date: Unknown Code(s): E87.1 - Hypo-osmolality and hyponatremia Status: Acute Assessment and Plan: fluctuates -- improves with dialysis continue to follow (5) Cardiorespiratory arrest: Code(s): I46.9 - Cardiac arrest, cause unspecified Status: Acute Assessment and Plan: presumably precipitated by aspiration now has a tracheostomy remains on mechanical ventilation (6) Encephalopathy: Code(s): G93.40 - Encephalopathy, unspecified Status: Acute Assessment and Plan: slow and steady improvement noted continue supportive care Will continue to follow. Subjective Date/time seen: 11/26/19 13:37 Tolerated dialysis yesterday without any issues or problems; mentation appears to have significantly improved in the last 24 - 48 hours; remains hemodynamically stable; no distress reported with simple questioning of patient. Exam Narrative: Exam Narrative: General: ill-appearing male in NAD; s/p tracheostomy Heart: irregular rhythm; no rub Lungs: coarse and diminished breath sounds Abdomen: soft, nontender, nondistended, positive bowel sounds Extremities: no cyanosis or clubbing; 1+ edema Skin: warm and dry Objective Data Vital Signs Vital Signs: Vital Signs Temp Pulse Resp BP Pulse Ox 11/26/19 12:00 36.9 C 107 H 23 H 108/55 L 100 11/26/19 10:00 94 21 H 169/79 H 100 11/26/19 08:33 104 H 100 11/26/19 08:32 110 H 23 H 11/26/19 08:00 36.8 C 89 23 H 140/60 100 11/26/19 06:00 110 H 22 H 143/74 H 100 11/26/19 04:00 36.7 C 98 26 H 113/67 99 11/26/19 02:00 104 H 30 H 103/73 98 11/26/19 01:39 120 H 28 H 100 11/26/19 01:35 120 H 27 H 11/26/19 00:00 36.6 C 108 H 24 H 98/71 L 97 11/25/19 22:44 120 H 100 11/25/19 22:00 104 H 26 H 91/59 L 98 11/25/19 20:00 36.5 C 112 H 24 H 125/52 L 97 11/25/19 19:59 105 H 33 H 11/25/19 19:55 106 H 100 11/25/19 19:53 110 H 28 H 11/25/19 18:00 97 26 H 124/56 L 100 11/25/19 17:26 109 H 100 11/25/19 16:00 112 H 30 H 125/71 99 11/25/19 15:14 106 H 24 H 11/25/19 15:07 108 H 96 11/25/19 15:03 105 H 25 H 11/25/19 14:00 103 H 16 100/67 97 Intake/Output Intake/Output: Intake & Output 11/23/19 11/24/19 11/25/19 11/26/19 23:59 23:59 23:59 23:59 Intake Total 2665 2712 2228 362 Output Total 1525 004 4265 210 Balance 869 6126 -178 152 Meds/Results Medications: Active Medications Generic Name Dose Route Start Last Admin Trade Name Freq PRN Reason Stop Dose Admin Acetaminophen 650 mg 11/20/19 16:02 11/20/19 16:08 Tylenol Elixir FEED TUBE 650 mg Q6H PRN Administration Mild Pain (1-3) or Fever Albuterol 2.5 mg 10/29/19 11:48 11/25/19 19:53 Albuterol Sulf Neb 2.5mg/0.5ml INHALATION 2.5 mg Q4HRT PRN Administration Wheezing or hig
--- NOTE | 2019-11-26 14:57 | WPDINTPN ---
Progress Note: A&P Assessment and Plan (1) Acute respiratory failure: Code(s): J96.00 - Acute respiratory failure, unspecified whether with hypoxia or hypercapnia Status: Acute Assessment and Plan: - patient on mechanical ventilation - completed course of antibiotics for aspiration pneumonia - patient now status post tracheostomy on 10/30/2019 - patient had a a ultrasound-guided thoracentesis done on 10/26 on right and 150 mL fluid was removed with culture remained negative. - patient on ASV mode of ventilation and tolerating, 30% FiO2 and peep of 5 - try to place patient on pressure support ventilation but was requiring almost 28/5 for adequate tidal volumes, so placed back patient on ASV mode - Continue physical and occupational therapy to work with the patient (2) Severe sepsis: Code(s): A41.9 - Sepsis, unspecified organism; R65.20 - Severe sepsis without septic shock Status: Acute Assessment and Plan: RESOLVED - status post successful treatment of Linda peritonitis with anti fungal therapy For 2 weeks. 11/06/2019: CT chest/abdomen /pelvis showed perforation of the posterior fundus of the stomach with splenic infarct and fluid collection , status post CT-guided placement of a drain with purulent drainage - cultures from abscess on the posterior aspect of the stomach growing Enterococcus, - leukocytosis persists, ID following, completed Vancomycin #12/25 - 11/16/2019 abdominal x-ray with water-soluble contrast showed persistent extravasation of contrast to the defect in the gastric fundus with drainage by the left upper quadrant percutaneous drain drain put out 30 cc overnight antibiotics per infectious disease service drain management per Surgical Service (3) Peritonitis: Onset Date: ~10/2019 Code(s): K65.9 - Peritonitis, unspecified Status: Acute Assessment and Plan: status post treatment of Linda peritonitis - status post removal of peritoneal dialysis catheter on 10/21/2019, - initial SILVA drains have now been removed by surgery service. Has completed antibiotics for Enterococcus in the peritoneal fluid. (4) Encephalopathy: Code(s): G93.40 - Encephalopathy, unspecified Status: Acute Assessment and Plan: - was improving, normal patient only opens his eyes intermittently but does not follow simple commands - dropped his hemoglobin was no obvious bleed, patient on heparin infusion, CT scan of the brain on 11/15/2019: Unchanged mild scattered white matter hypoattenuation consistent with chronic small-vessel ischemic disease. No acute intracranial process. Increasing small left and large right otomastoiditis effusion - patient is off all sedation - encephalopathy likely multifactorial related to metabolic /uremic encephalopathy, infectious encephalopathy, medication related, critical care encephalopathy. He is not following command. He at times track people in the room with eye movements but it is intermittent only - EEG was done on 10/20/2019 Which showed significant slowing, likely related to severe encephalopathy. No epileptiform discharges were seen - patient did have a CT scan of the brain on 10/18/2019: was negative for any acute intracranial pathology - he does appear in significant pain. I will continue to treat with p.r.n. fentanyl. (5) Cardiorespiratory arrest: Code(s): I46.9 - Cardiac arrest, cause unspecified Status: Acute Assessment and Plan: PEA arrest on 10/13/2019 likely due to aspiration, ROSC after 1 round of epinephrine - post arrest pt was following commands and so did not require hypothermia protocol (6) ESRD (end stage renal disease) on dialysis: Code(s): N18.6 - End stage renal disease; Z99.2 - Dependence on renal dialysis Status: Acute Assessment and Plan: patient with end-stage renal disease on peritoneal dialysis, FUNGAL P
--- NOTE | 2019-11-26 16:21 | PM.IMPN ---
Progress Note: A&P Assessment and Plan (1) Gastric perforation: Code(s): K25.5 - Chronic or unspecified gastric ulcer with perforation Status: Acute Assessment and Plan: He is not a good candidate for surgery given his multiple comorbidities ( 3 or more organ systems in failure at this time respiratory, renal and GI, functional quadriplegia bedridden ). Completed antibiotics and antifungal medications for peritonitis.. Hospice care might be in this patient best interest, family has finally accepted to meet with the hospice team at some point. (2) Severe sepsis: Code(s): A41.9 - Sepsis, unspecified organism; R65.20 - Severe sepsis without septic shock Status: Acute Assessment and Plan: Likely secondary to peritonitis, his dialysis catheter was removed however now he has a gastric perforation leaking into the peritoneum. Not on vasopressors now. Completed antibiotics (3) ESRD (end stage renal disease) on dialysis: Code(s): N18.6 - End stage renal disease; Z99.2 - Dependence on renal dialysis Status: Acute Assessment and Plan: cont HD thru RIJ HD cath (4) Ventilator dependence: Code(s): Z99.11 - Dependence on respirator [ventilator] status Status: Acute Assessment and Plan: Remains on ventilatory support. Subjective Date/time seen: Less alert today, he did not open his eyes while I was examining him. 11/26/19 16:21 Exam Narrative: Exam Narrative: elderly frail Const: General: no acute distress Other: Chronically ill. Neck: Neck: supple Resp: Auscultation: crackles, rhonchi and diminished lung sounds Other: Coarse breath sounds bilaterally Cardio: Rate: regular rate Rhythm: regular rhythm GI: Other: Non distended, soft Neuro: Other: He is not alert today Extrem: Other: edema in both lower extremities. Objective Data Vital Signs Vital Signs: Vital Signs - 24 hr 11/25/19 17:26 11/25/19 18:00 11/25/19 19:53 Temperature Pulse Rate 109 H 97 110 H Respiratory Rate 26 H 28 H Blood Pressure 124/56 L Pulse Oximetry 100 100 11/25/19 19:55 11/25/19 19:59 11/25/19 20:00 Temperature 97.7 F Pulse Rate 106 H 105 H 112 H Respiratory Rate 33 H 24 H Blood Pressure 125/52 L Pulse Oximetry 100 97 11/25/19 22:00 11/25/19 22:44 11/26/19 00:00 Temperature 97.9 F Pulse Rate 104 H 120 H 108 H Respiratory Rate 26 H 24 H Blood Pressure 91/59 L 98/71 L Pulse Oximetry 98 100 97 11/26/19 01:35 11/26/19 01:39 11/26/19 02:00 Temperature Pulse Rate 120 H 120 H 104 H Respiratory Rate 27 H 28 H 30 H Blood Pressure 103/73 Pulse Oximetry 100 98 11/26/19 04:00 11/26/19 06:00 11/26/19 08:00 Temperature 98.1 F 98.2 F Pulse Rate 98 110 H 89 Respiratory Rate 26 H 22 H 23 H Blood Pressure 113/67 143/74 H 140/60 Pulse Oximetry 99 100 100 11/26/19 08:32 11/26/19 08:33 11/26/19 10:00 Temperature Pulse Rate 110 H 104 H 94 Respiratory Rate 23 H 21 H Blood Pressure 169/79 H Pulse Oximetry 100 100 11/26/19 12:00 11/26/19 14:00 11/26/19 14:44 Temperature 98.5 F Pulse Rate 107 H 94 125 H Respiratory Rate 23 H 17 17 Blood Pressure 108/55 L 123/53 L Pulse Oximetry 100 100 Intake/Output Intake/Output: Intake & Output 11/23/19 11/24/19 11/25/19 11/26/19 23:59 23:59 23:59 23:59 Intake Total 2663 2712 2228 362 Output Total [phone] 210 Balance 862 1538 -795 152 Meds/Results Medications: Active Medications Generic Name Dose Route Start Last Admin Trade Name Freq PRN Reason Stop Dose Admin Acetaminophen 650 mg 11/20/19 16:02 11/20/19 16:08 Tylenol Elixir FEED TUBE 650 mg Q6H PRN Administration Mild Pain (1-3) or Fever Albuterol 2.5 mg 10/29/19 11:48 11/25/19 19:53 Albuterol Sulf Neb 2.5mg/0.5ml INHALATION 2.5 mg Q4HRT PRN Administration Wheezing or high peak pressure Alteplase, Recombinant 2 mg 11/14/19 07:02 11/14/19 07:5
[2019-11-26 17:34] LABS: Partial Thromboplastin Time 76.6 SECONDS (22.3-36.8)
[2019-11-26 18:01] LABS: Glucose Point of Care 144 (65-105)
[2019-11-26] MEDS: MIDODRINE HCL 10 MG TABLET PO (18:03)
[2019-11-26] MEDS: ACETAMINOPHEN ELIXIR 325 MG/10.15 ML UDC 650 MG FEED TUBE (21:40)
[2019-11-27] VITALS (28 sets, daily range): BP systolic 102–126; BP diastolic 44–86; PULSE 98–145; RESP 14–35; TEMP 36.4–37.4; O2SAT 96–100
[2019-11-27 00:29] LABS: Glucose Point of Care 183 (65-105)
[2019-11-27 00:29] LABS: Glucose Point of Care 168 (65-105)
[2019-11-27] MEDS: HEPARIN SOD/D5W 100 UNITS/ML 25,000 UNITS/250 ML BAG 12 UNITS IV CONT ×2 (01:59→20:48)
[2019-11-27] MEDS: IPRATROPIUM BR 0.02% INH SOLN 0.5 MG/2.5 ML VIAL INHALATION ×4 (02:05→20:15)
[2019-11-27 04:48] LABS: Hematocrit 26.8 % (42.0-52.0); Hemoglobin 8.6 g/dL (14.0-18.0); Mean Corpuscular HGB Conc 32.1 g/dl (32-36); Mean Corpuscular Hemoglobin 32.6 pg (26-34); Mean Corpuscular Volume 101.5 fl (80-100); Mean Platelet Volume 10.6 fl (7.4-10.4); Platelet Count Result 332 k/mm3 (150-375); Red Blood Count 2.64 M/mm3 (4.6-6.20); Red Cell Distribution Width 19.3 % (11.5-14.5); White Blood Count 21.5 K/mm3 (4.5-10.0)
[2019-11-27 05:02] LABS: Partial Thromboplastin Time 63.7 SECONDS (22.3-36.8)
[2019-11-27 05:08] LABS: Alanine Aminotransferase 76 U/L (4-50); Albumin Level 2.1 g/dL (3.5-5.1); Alkaline Phosphatase 394 U/L (38-126); Anion Gap 7 mmol/L (8-16); Aspartate Amino Transferase 171 U/L (17-59); Bilirubin,Total 0.8 mg/dL (0.2-1.3); Blood Urea Nitrogen 64 mg/dL (9-20); Calcium 7.3 mg/dL (8.4-10.2); Carbon Dioxide 26 mmol/L (22-30); Chloride 94 mmol/L (98-107); Estimated CRCL calculation 22 ml/min; Estimated Glomerular Filt Rate 31; Glucose 125 mg/dL (75-110); Magnesium 2.1 mg/dL (1.6-2.3); Sodium 127 mmol/L (137-145)
[2019-11-27] MEDS: CENTRAL LINE FLUSH 10 ML IV PUSH ×3 (05:27→20:56)
[2019-11-27] MEDS: SUCRALFATE SUSP 100 MG/ML 10 ML UDC 1000 MG PO ×3 (05:29→17:02)
[2019-11-27] MEDS: LEVOTHYROXINE SODIUM INJ 100 MCG/5 ML VIAL 50 MCG IV PUSH (05:31)
[2019-11-27] MEDS: HEPARIN SODIUM 5,000 UNITS/ML VIAL 2500 UNITS IV PUSH (05:32)
[2019-11-27 06:34] LABS: Glucose Point of Care 98 (65-105)
[2019-11-27] MEDS: FAT EMULSIONS IV 20% 250 ML 20.8 ML IVPB (07:56)
[2019-11-27] MEDS: INSULIN DETEMIR 100 UNITS/ML 12 UNITS SUB-Q ×2 (07:59→20:58)
[2019-11-27] MEDS: PANTOPRAZOLE SODIUM IV 40 MG VIAL IV PUSH ×2 (08:07→20:50)
[2019-11-27] MEDS: MIDODRINE HCL 10 MG TABLET PO ×3 (08:07→16:57)
[2019-11-27] MEDS: SILVERGEL (ELTA) 45 ML 1 APPLIC TOPICAL (08:07)
[2019-11-27] MEDS: NEOMYCIN/POLYMYXIN/BACITRACIN OINTMENT 15 GM TUBE 1 APPLIC TOPICAL (08:08)
[2019-11-27] MEDS: ALBUTEROL SULFATE NEB 2.5 MG/0.5 ML INH INHALATION ×3 (08:29→20:14)
--- NOTE | 2019-11-27 09:53 | PM.PNGS ---
Progress Note: A&P Assessment and Plan (1) Gastric perforation: Code(s): K25.5 - Chronic or unspecified gastric ulcer with perforation Status: Acute Assessment and Plan: Perforation contained with drain placement. Continue Protonix and Carafate. Could consider repeating a contrast study to assess for healing of perforation if drain output tapers down to almost nothing.( repeating this today 11/26) Would not recommend enteral feedings until contrast study has confirmed no further perforation. If this is the case would consider starting with elemental tube feedings for several days and then moving to more normal tube feedings if everything goes well after that. Additional Plan The last remaining SILVA drain from left lower quadrant has now been out since 11/15. The left upper quadrant drain that was in the lesser sac was removed 11/02. Will stop packing the site of the old peritoneal dialysis catheter since it is almost healed in. For both this site and the recently removed left lower quadrant SILVA drain site in the we will apply bacitracin or Neosporin ointment and cover with the 2 x 2 and tape. Drainage from the left upper quadrant pigtail catheter placed by CT guidance has been 50 cc and 35 cc respectively for the last 2 days. It has not look purulent. Since it has been 1 week since the last study we will repeat a water-soluble upper GI study to see if there is still leakage from the perforated gastric ulcer in the fundal area of the stomach. If not consider starting elemental tube feedings over the weekend at a slow rate. I would continue consider continuing to use Carafate and perhaps turn the tube feedings off for an hour each time Carafate is given. Addendum: 12:10 p .m.: Contrast injection at the stomach through the G-tube today shows no extravasation. Therefore, agree with proceeding to start slow drip antral elemental tube feedings he the G-tube later today. Will need to watch and see if any signs of this show up in the left upper quadrant abscess drain. If drainage significantly increases we will need to re-evaluate but if not would gradually advance tube feeds through the G-tube. [place] Subjective Subjective Date/Time Seen: 11/27/19 09:53 Patient seen in his ICU room. He is awake and looking around today. Nurse reports that he follows some commands including squeezing the examiner's hands. He did seem to attend to me today but did not follow commands for me. Review of Systems Review of Systems: ROS unobtainable: Yes unobtainable due to endotracheal tube, unobtainable due to medical condition and unobtainable due to mental status Exam Narrative: Exam Narrative: afebrile Eyes: General: appearance normal, both eyes and all related structures Sclera: sclerae normal EOM: EOMs intact bilaterally Neck: Neck: normal visual inspection, full ROM, no JVD and other ( right IJ tunneled dialysis catheter dry and intact.) Lymphatic: lymphadenopathy not noted Other: Incisions on right neck clean and dry. Triple lumen central line on the left without signs of purulent exudate. Patient now has a tracheostomy tube placed by ENT. GI: Inspection: normal to inspection, non-distended, incision ( Perulent fluid the LLQ SILVA drain, dressings dry.), scar and no visible herniation Auscultation: normal bowel sounds and Hypoactive bowel sounds present Rectal Exam: deferred Other: All abdominal wounds inspected today Left upper quadrant drain site: well dressed and minimal drainage in drainage bag that is clearish slightly mucousy appearing and white in color. Site of previous left lower quadrant SILVA drain: without significant drainage but still with am opening Covered with antibiotic ointment and a pew by to.. Site of previous left lower quadrant peritoneal dialysis catheter: site now is almost sealed in. Probes less than 1 cm deep. Will cover with gauze and apply some antibiotic ointment now and we stopped pa
--- NOTE | 2019-11-27 13:25 | PM.PNNEP ---
Progress Note: A&P Assessment and Plan (1) ESRD (end stage renal disease) on dialysis: Code(s): N18.6 - End stage renal disease; Z99.2 - Dependence on renal dialysis Status: Acute Assessment and Plan: HD tomorrow and plan new schedule of T/T/S blood pressure usually runs low on treatment limiting fluid removal follow electrolytes, volume status, and clearance (2) Gastric perforation: Code(s): K25.5 - Chronic or unspecified gastric ulcer with perforation Status: Acute Assessment and Plan: as noted by recent CT imaging complicated by perisplenic abscess s/p drain placement by IR last imaging demonstrated gastric leak still present continue current therapy (3) Peritonitis (acute) generalized: Code(s): K65.0 - Generalized (acute) peritonitis Status: Acute Assessment and Plan: PD fluid cultures growing yeast s/p PD catheter removal and washout completed 2 week course of antifungal therapy (4) Hyponatremia: Onset Date: Unknown Code(s): E87.1 - Hypo-osmolality and hyponatremia Status: Acute Assessment and Plan: fluctuates -- improves with dialysis continue to follow (5) Cardiorespiratory arrest: Code(s): I46.9 - Cardiac arrest, cause unspecified Status: Acute Assessment and Plan: presumably precipitated by aspiration now has a tracheostomy remains on mechanical ventilation (6) Encephalopathy: Code(s): G93.40 - Encephalopathy, unspecified Status: Acute Assessment and Plan: slow and steady improvement noted continue supportive care Will continue to follow. Subjective Date/time seen: 11/27/19 13:25 No apparent issues or problems overnight per nursing; remains on mechanical ventilation/respiratory support; seems comfortable on my visit; no distress noted. Exam Narrative: Exam Narrative: General: ill-appearing male in NAD; s/p tracheostomy Heart: irregular rhythm; no rub Lungs: coarse and diminished breath sounds Abdomen: soft, nontender, nondistended, positive bowel sounds Extremities: no cyanosis or clubbing; 1+ edema Skin: warm and dry Objective Data Vital Signs Vital Signs: Vital Signs Temp Pulse Resp BP Pulse Ox 11/27/19 11:25 115 H 100 11/27/19 10:00 115 H 30 H 118/62 96 11/27/19 08:40 103 H 24 H 11/27/19 08:30 100 24 H 100 11/27/19 08:00 36.9 C 115 H 30 H 108/53 L 96 11/27/19 06:00 107 H 21 H 117/58 L 100 11/27/19 05:15 145 H 100 11/27/19 04:00 36.4 C 100 26 H 114/86 99 11/27/19 02:10 100 99 11/27/19 02:00 99 14 113/80 98 11/27/19 00:00 36.6 C 100 26 H 119/53 L 99 11/26/19 23:30 100 99 11/26/19 22:00 36.9 C 109 H 25 H 113/56 L 96 11/26/19 21:40 36.9 C 11/26/19 20:49 117 H 14 11/26/19 20:36 117 H 14 11/26/19 20:15 129 H 99 11/26/19 20:00 37.0 C 115 H 24 H 109/60 97 11/26/19 18:00 104 H 31 H 115/89 99 11/26/19 17:32 97 99 11/26/19 16:00 37.2 C 104 H 31 H 103/80 99 11/26/19 14:44 125 H 17 11/26/19 14:35 105 H 99 11/26/19 14:00 94 17 123/53 L 100 Intake/Output Intake/Output: Intake & Output 11/24/19 11/25/19 11/26/19 11/27/19 23:59 23:59 23:59 23:59 Intake Total 2715 2225 2989 1238 Output Total 251 6525 235 250 Balance 5592 -698 0121 437 Meds/Results Medications: Active Medications Generic Name Dose Route Start Last Admin Trade Name Freq PRN Reason Stop Dose Admin Acetaminophen 650 mg 11/20/19 16:02 11/26/19 21:40 Tylenol Elixir FEED TUBE 650 mg Q6H PRN Administration Mild Pain (1-3) or Fever Albuterol 2.5 mg 10/29/19 11:48 11/27/19 08:29 Albuterol Sulf Neb 2.5mg/0.5ml INHALATION 12/26/19 11:49 2.5 mg Q4HRT PRN Administration Wheezing or high peak pressure Alteplase, Recombinant 2 mg 11/14/19 07:02 11/14/19 07:56 Cathflo Activase IV PUSH 2 mg ONCE
[2019-11-27 13:54] LABS: Glucose Point of Care 89 (65-105)
--- NOTE | 2019-11-27 13:55 | WPDINTPN ---
Subjective Date/time seen: 11/27/19 13:55 Exam Const: General: comfortable and no acute distress Other: grimaces to pain HENMT: Other: tracheostomy in place Eyes: Sclera: sclerae normal Pupils: Equal, round and reactive pupils present Neck: Neck: supple and no JVD Resp: Effort & Inspection: normal respiratory effort Auscultation: diminished lung sounds Other: coarse breath sounds bilaterally, no wheeze Cardio: Rate: regular rate Rhythm: regular rhythm GI: Inspection: distended Auscultation: abnormal bowel sounds Other: belly soft but tender to palpation diffuse which is unchanged from before fecal management system in place G-tube draining the abscess still draining purulent drainage : Other: scrotal edema Skin: Other: wound on the coccyx - right calf for - left ball of the toe necrotic ulcer - left and right great toe tips discoloration noted - bilateral heels are under dressing Neuro: Cranial nerves: Yes Equal, round and reactive pupils present Other: patient not on any sedation opens his eyes, able to mouth words today, follows simple commands he with upper extremities and moves his feet bilaterally Extrem: Other: bilateral upper extremity edema, contracted upper extremities bilaterally Psych: Other: unable to assess at this time Objective Data Vital Signs Vital Signs: Vital Signs - 24 hr 11/26/19 14:00 11/26/19 14:35 11/26/19 14:44 Temperature Pulse Rate 94 105 H 125 H Respiratory Rate 17 17 Blood Pressure 123/53 L Pulse Oximetry 100 99 11/26/19 16:00 11/26/19 17:32 11/26/19 18:00 Temperature 98.9 F Pulse Rate 104 H 97 104 H Respiratory Rate 31 H 31 H Blood Pressure 103/80 115/89 Pulse Oximetry 99 99 99 11/26/19 20:00 11/26/19 20:15 11/26/19 20:36 Temperature 98.6 F Pulse Rate 115 H 129 H 117 H Respiratory Rate 24 H 14 Blood Pressure 109/60 Pulse Oximetry 97 99 11/26/19 20:49 11/26/19 21:40 11/26/19 22:00 Temperature 98.4 F 98.4 F Pulse Rate 117 H 109 H Respiratory Rate 14 25 H Blood Pressure 113/56 L Pulse Oximetry 96 11/26/19 23:30 11/27/19 00:00 11/27/19 02:00 Temperature 97.8 F Pulse Rate 100 100 99 Respiratory Rate 26 H 14 Blood Pressure 119/53 L 113/80 Pulse Oximetry 99 99 98 11/27/19 02:10 11/27/19 04:00 11/27/19 05:15 Temperature 97.6 F Pulse Rate 100 100 145 H Respiratory Rate 26 H Blood Pressure 114/86 Pulse Oximetry 99 99 100 11/27/19 06:00 11/27/19 08:00 11/27/19 08:30 Temperature 98.4 F Pulse Rate 107 H 115 H 100 Respiratory Rate 21 H 30 H 24 H Blood Pressure 117/58 L 108/53 L Pulse Oximetry 100 96 100 11/27/19 08:40 11/27/19 10:00 11/27/19 11:25 Temperature Pulse Rate 103 H 115 H 115 H Respiratory Rate 24 H 30 H Blood Pressure 118/62 Pulse Oximetry 96 100 Intake/Output Intake/Output: Intake & Output 11/24/19 11/25/19 11/26/19 11/27/19 23:59 23:59 23:59 23:59 Intake Total 2712 2228 2989 1238 Output Total 650 2875 235 250 Balance 7711 -773 8125 195 Meds/Results Medications: Active Medications Generic Name Dose Route Start Last Admin Trade Name Freq PRN Reason Stop Dose Admin Acetaminophen 650 mg 11/20/19 16:02 11/26/19 21:40 Tylenol Elixir FEED TUBE 650 mg Q6H PRN Administration Mild Pain (1-3) or Fever Albuterol 2.5 mg 10/29/19 11:48 11/27/19 08:29 Albuterol Sulf Neb 2.5mg/0.5ml INHALATION 12/26/19 11:49 2.5 mg Q4HRT PRN Administration Wheezing or high peak pressure Alteplase, Recombinant 2 mg 11/14/19 07:02 11/14/19 07:56 Cathflo Activase IV PUSH 2 mg ONCE PRN Administration Line Occlusion Bisacodyl 10 mg 10/14/19 17:03 10/16/19 17:51 Dulcolax Suppository RECTAL 10 mg QAM PRN Administration Constipation Dextrose 12.5 gm 10/31/19 09:03 11/14/19 08:42 Dextrose 50% Syringe IV PUSH 12.5 gm PRN PRN Administration Hypoglycemia Protocol Fentanyl Citrate 25
--- NOTE | 2019-11-27 14:04 | WPDINTPN ---
Progress Note: A&P Assessment and Plan (1) Acute respiratory failure: Code(s): J96.00 - Acute respiratory failure, unspecified whether with hypoxia or hypercapnia Status: Acute Assessment and Plan: - patient on mechanical ventilation - completed course of antibiotics for aspiration pneumonia - patient now status post tracheostomy on 10/30/2019 - patient had a a ultrasound-guided thoracentesis done on 10/26 on right and 150 mL fluid was removed with culture remained negative. - patient on ASV mode of ventilation and tolerating, 30% FiO2 and peep of 5 - try to place patient on pressure support ventilation but was requiring high pressure support for adequate tidal volumes, so placed back patient on ASV mode - Continue physical and occupational therapy to work with the patient (2) Severe sepsis: Code(s): A41.9 - Sepsis, unspecified organism; R65.20 - Severe sepsis without septic shock Status: Acute Assessment and Plan: RESOLVED - status post successful treatment of Linda peritonitis with anti fungal therapy For 2 weeks. 11/06/2019: CT chest/abdomen /pelvis showed perforation of the posterior fundus of the stomach with splenic infarct and fluid collection , status post CT-guided placement of a drain with purulent drainage - cultures from abscess on the posterior aspect of the stomach growing Enterococcus, - leukocytosis persists, ID following, completed Vancomycin #12/25 - 11/16/2019 abdominal x-ray with water-soluble contrast showed persistent extravasation of contrast to the defect in the gastric fundus with drainage by the left upper quadrant percutaneous drain - 11/27/2019 abdominal x-ray with water-soluble contrast showed no evident extravasation of the check did gastric contrast to suggest persistent Leak. - Discussed with Dr. Levi, to start tube feeds at 10 mL/hour (3) Peritonitis: Onset Date: ~10/2019 Code(s): K65.9 - Peritonitis, unspecified Status: Acute Assessment and Plan: RESOLVED: status post treatment of Linda peritonitis - status post removal of peritoneal dialysis catheter on 10/21/2019, - initial SILVA drains have now been removed by surgery service. Has completed antibiotics for Enterococcus in the peritoneal fluid. (4) Encephalopathy: Code(s): G93.40 - Encephalopathy, unspecified Status: Acute Assessment and Plan: RESOLVING - PATIENT IS MORE AWAKE, MOUTH WORDS AND FOLLOWS SIMPLE COMMANDS - dropped his hemoglobin was no obvious bleed, patient on heparin infusion, CT scan of the brain on 11/15/2019: Unchanged mild scattered white matter hypoattenuation consistent with chronic small-vessel ischemic disease. No acute intracranial process. Increasing small left and large right otomastoiditis effusion - patient is off all sedation - EEG was done on 10/20/2019 Which showed significant slowing, likely related to severe encephalopathy. No epileptiform discharges were seen - patient did have a CT scan of the brain on 10/18/2019: was negative for any acute intracranial pathology - he does appear in significant pain. I will continue to treat with p.r.n. fentanyl. (5) Cardiorespiratory arrest: Code(s): I46.9 - Cardiac arrest, cause unspecified Status: Acute Assessment and Plan: PEA arrest on 10/13/2019 likely due to aspiration, ROSC after 1 round of epinephrine - post arrest pt was following commands and so did not require hypothermia protocol (6) ESRD (end stage renal disease) on dialysis: Code(s): N18.6 - End stage renal disease; Z99.2 - Dependence on renal dialysis Status: Acute Assessment and Plan: patient with end-stage renal disease on peritoneal dialysis, FUNGAL PERITONITIS - removal of peritoneal dialysis catheter and insertion of right IJ tunnel dialysis catheter was done on 10/21/2019. - Patient started on hemodialysis on 10/21/2019,
[2019-11-27] MEDS: ACETAMINOPHEN ELIXIR 325 MG/10.15 ML UDC 650 MG FEED TUBE (14:18)
--- NOTE | 2019-11-27 14:23 | PM.IMPN ---
Progress Note: A&P Assessment and Plan (1) Gastric perforation: Code(s): K25.5 - Chronic or unspecified gastric ulcer with perforation Status: Acute Assessment and Plan: He is not a good candidate for surgery given his multiple comorbidities ( 3 or more organ systems in failure at this time respiratory, renal and GI, functional quadriplegia bedridden ). Completed antibiotics and antifungal medications for peritonitis.. Poor prognosis, family has not meet with hospice yet. (2) Severe sepsis: Code(s): A41.9 - Sepsis, unspecified organism; R65.20 - Severe sepsis without septic shock Status: Acute Assessment and Plan: Likely secondary to peritonitis, his dialysis catheter was removed however now he has a gastric perforation leaking into the peritoneum. Not on vasopressors now. Completed antibiotics (3) ESRD (end stage renal disease) on dialysis: Code(s): N18.6 - End stage renal disease; Z99.2 - Dependence on renal dialysis Status: Acute Assessment and Plan: cont HD thru RIJ HD cath (4) Ventilator dependence: Code(s): Z99.11 - Dependence on respirator [ventilator] status Status: Acute Assessment and Plan: Remains on ventilatory support. Subjective Date/time seen: No changes in his clinical condition, no improvement. 11/27/19 14:23 Exam Narrative: Exam Narrative: elderly frail Const: General: no acute distress Other: Chronically ill. Neck: Neck: supple Resp: Auscultation: crackles, rhonchi and diminished lung sounds Other: Coarse breath sounds bilaterally Cardio: Rate: regular rate Rhythm: regular rhythm GI: Other: Non distended, soft Neuro: Other: Not following commands , left hemiparesis. Extrem: Other: edema in both lower extremities. Objective Data Vital Signs Vital Signs: Vital Signs - 24 hr 11/26/19 14:35 11/26/19 14:44 11/26/19 16:00 Temperature 98.9 F Pulse Rate 105 H 125 H 104 H Respiratory Rate 17 31 H Blood Pressure 103/80 Pulse Oximetry 99 99 11/26/19 17:32 11/26/19 18:00 11/26/19 20:00 Temperature 98.6 F Pulse Rate 97 104 H 115 H Respiratory Rate 31 H 24 H Blood Pressure 115/89 109/60 Pulse Oximetry 99 99 97 11/26/19 20:15 11/26/19 20:36 11/26/19 20:49 Temperature Pulse Rate 129 H 117 H 117 H Respiratory Rate 14 14 Blood Pressure Pulse Oximetry 99 11/26/19 21:40 11/26/19 22:00 11/26/19 23:30 Temperature 98.4 F 98.4 F Pulse Rate 109 H 100 Respiratory Rate 25 H Blood Pressure 113/56 L Pulse Oximetry 96 99 11/27/19 00:00 11/27/19 02:00 11/27/19 02:10 Temperature 97.8 F Pulse Rate 100 99 100 Respiratory Rate 26 H 14 Blood Pressure 119/53 L 113/80 Pulse Oximetry 99 98 99 11/27/19 04:00 11/27/19 05:15 11/27/19 06:00 Temperature 97.6 F Pulse Rate 100 145 H 107 H Respiratory Rate 26 H 21 H Blood Pressure 114/86 117/58 L Pulse Oximetry 99 100 100 11/27/19 08:00 11/27/19 08:30 11/27/19 08:40 Temperature 98.4 F Pulse Rate 115 H 100 103 H Respiratory Rate 30 H 24 H 24 H Blood Pressure 108/53 L Pulse Oximetry 96 100 11/27/19 10:00 11/27/19 11:25 11/27/19 12:00 Temperature 99.4 F Pulse Rate 115 H 115 H 111 H Respiratory Rate 30 H 23 H Blood Pressure 118/62 116/49 L Pulse Oximetry 96 100 98 11/27/19 14:00 11/27/19 14:18 Temperature 99.4 F Pulse Rate 112 H Respiratory Rate 28 H Blood Pressure 126/79 Pulse Oximetry 99 Intake/Output Intake/Output: Intake & Output 11/24/19 11/25/19 11/26/19 11/27/19 23:59 23:59 23:59 23:59 Intake Total 2297 1509 5550 2046 Output Total 553 9062 177 300 Balance 9661 -414 4040 2303 Meds/Results Medications: Active Medications Generic Name Dose Route Start Last Admin Trade Name Freq PRN Reason Stop Dose Admin Acetaminophen 650 mg 11/20/19 16:02 11/27/19 14:18 Tylenol Elixir FEED TUBE 650 mg Q6H PRN Administration Mild Pain (1-3) or Fe
--- NOTE | 2019-11-27 15:05 | PCDIET ---
Nutrition Follow-Up Complete: Nutrition Diagnosis: Inadequate oral intake related to oral intubation as evidenced by NPO status. Nutrition Goal: Patient to meet estimated nutritional needs. Goal in progress. Follow up gastric study showed no evidence of leak. Discussed with Dr. Lopez - plan to start on Vital 1.2 at 10mL/hr which is appropriate. Once tube feedings are able to advance, would consider change to Nepro; however, at this point, agree that peptide based formula is most appropriate. In mean time, recommend continuing Clinimix E 5/15 at 80mL/hr with 250mL 20% lipids daily. Last recorded weight is 76.8 kg which is increased from last review. +I/O. Dialysis planned for tomorrow with change to TTS schedule. Bowel Motility: +Stools - FMS in place. Labs Reviewed: Hgb (8.6), Hct (26.8), Glu (125), BUN (64), Cr (2.1), Na (127), Alb (2.1), Ade Ca (8.82) Meds Noted: Albuterol, Fentanyl, Novolog, Levemir, Atrovent, Synthroid, Midodrine, Protonix Additional Notes: No change in wounds reported. Nutrition Monitoring and Evaluation: Follow up every Saturday/Saturday. Follow daily in ICU rounds.
[2019-11-27 17:08] LABS: Glucose Point of Care 115 (65-105)
[2019-11-27 17:52] LABS: Glucose Point of Care 110 (65-105)
[2019-11-27 18:55] LABS: Partial Thromboplastin Time 95.8 SECONDS (22.3-36.8)
[2019-11-27 23:33] LABS: Glucose Point of Care 132 (65-105)
[2019-11-28] VITALS (44 sets, daily range): BP systolic 102–160; BP diastolic 46–113; PULSE 95–127; RESP 17–31; TEMP 35.5–36.9; O2SAT 95–100
[2019-11-28 00:10] LABS: Glucose Point of Care 139 (65-105)
[2019-11-28] MEDS: SUCRALFATE SUSP 100 MG/ML 10 ML UDC 1000 MG PO ×4 (00:28→18:30)
[2019-11-28 00:54] LABS: Partial Thromboplastin Time 72.5 SECONDS (22.3-36.8)
[2019-11-28] MEDS: IPRATROPIUM BR 0.02% INH SOLN 0.5 MG/2.5 ML VIAL INHALATION ×4 (01:56→20:56)
[2019-11-28 04:30] LABS: Hematocrit 26.2 % (42.0-52.0); Hemoglobin 8.6 g/dL (14.0-18.0); Mean Corpuscular HGB Conc 32.8 g/dl (32-36); Mean Corpuscular Hemoglobin 32.6 pg (26-34); Mean Corpuscular Volume 99.2 fl (80-100); Mean Platelet Volume 10.9 fl (7.4-10.4); Platelet Count Result 329 k/mm3 (150-375); Red Blood Count 2.64 M/mm3 (4.6-6.20); Red Cell Distribution Width 18.8 % (11.5-14.5); White Blood Count 20.7 K/mm3 (4.5-10.0)
[2019-11-28 04:43] LABS: Partial Thromboplastin Time 68.8 SECONDS (22.3-36.8)
[2019-11-28 04:58] LABS: Alanine Aminotransferase 61 U/L (4-50); Albumin Level 2.1 g/dL (3.5-5.1); Alkaline Phosphatase 387 U/L (38-126); Anion Gap 9 mmol/L (8-16); Aspartate Amino Transferase 84 U/L (17-59); Bilirubin,Total 0.6 mg/dL (0.2-1.3); Blood Urea Nitrogen 80 mg/dL (9-20); Calcium 7.2 mg/dL (8.4-10.2); Carbon Dioxide 23 mmol/L (22-30); Chloride 92 mmol/L (98-107); Estimated CRCL calculation 20 ml/min; Estimated Glomerular Filt Rate 26; Glucose 158 mg/dL (75-110); Magnesium 2.2 mg/dL (1.6-2.3); Phosphorus 7.8 mg/dL (2.5-4.5); Potassium 4.7 mmol/L (3.4-5.0); Sodium 124 mmol/L (137-145)
[2019-11-28] MEDS: CENTRAL LINE FLUSH 10 ML IV PUSH ×3 (05:14→20:29)
[2019-11-28] MEDS: LEVOTHYROXINE SODIUM INJ 100 MCG/5 ML VIAL 50 MCG IV PUSH (05:17)
[2019-11-28] MEDS: HEPARIN SODIUM 5,000 UNITS/ML VIAL 2500 UNITS IV PUSH (05:20)
[2019-11-28 05:40] LABS: Glucose Point of Care 122 (65-105)
[2019-11-28] MEDS: FAT EMULSIONS IV 20% 250 ML 20.8 ML IVPB (08:57)
[2019-11-28] MEDS: NEOMYCIN/POLYMYXIN/BACITRACIN OINTMENT 15 GM TUBE 1 APPLIC TOPICAL (08:58)
[2019-11-28] MEDS: SILVERGEL (ELTA) 45 ML 1 APPLIC TOPICAL (08:58)
[2019-11-28] MEDS: MIDODRINE HCL 10 MG TABLET PO ×3 (08:59→18:30)
[2019-11-28] MEDS: ALBUMIN HUMAN 25% 12.5 GM/50ML 50 ML IVPB (09:15)
[2019-11-28] MEDS: EPOETIN ALFA-EPBX 10,000 UNITS/ML VIAL 10000 UNITS IV PUSH (09:21)
[2019-11-28] MEDS: INSULIN DETEMIR 100 UNITS/ML 12 UNITS SUB-Q ×2 (09:31→20:29)
[2019-11-28] MEDS: SODIUM CHLORIDE 0.9% IV 1,000 ML 999 ML IV CONT (09:43)
[2019-11-28 11:11] LABS: Glucose Point of Care 115 (65-105)
--- NOTE | 2019-11-28 11:35 | WPDINTPN ---
Progress Note: A&P Assessment and Plan (1) Acute respiratory failure: Code(s): J96.00 - Acute respiratory failure, unspecified whether with hypoxia or hypercapnia Status: Acute Assessment and Plan: - patient on mechanical ventilation - completed course of antibiotics for aspiration pneumonia - patient now status post tracheostomy on 10/30/2019 - patient had a a ultrasound-guided thoracentesis done on 10/26 on right and 150 mL fluid was removed with culture remained negative. - patient on ASV mode of ventilation and tolerating, 30% FiO2 and peep of 5 - try to place patient on pressure support ventilation but was requiring high pressure support for adequate tidal volumes, so placed back patient on ASV mode - Continue physical and occupational therapy to work with the patient (2) Severe sepsis: Code(s): A41.9 - Sepsis, unspecified organism; R65.20 - Severe sepsis without septic shock Status: Acute Assessment and Plan: RESOLVED - status post successful treatment of Linda peritonitis with anti fungal therapy For 2 weeks. 11/06/2019: CT chest/abdomen /pelvis showed perforation of the posterior fundus of the stomach with splenic infarct and fluid collection , status post CT-guided placement of a drain with purulent drainage - cultures from abscess on the posterior aspect of the stomach growing Enterococcus, - leukocytosis persists, ID following, completed Vancomycin #12/25 - 11/16/2019 abdominal x-ray with water-soluble contrast showed persistent extravasation of contrast to the defect in the gastric fundus with drainage by the left upper quadrant percutaneous drain - 11/27/2019 abdominal x-ray with water-soluble contrast showed no evident extravasation of the check did gastric contrast to suggest persistent Leak. - Discussed with Dr. Levi, to start tube feeds at 10 mL/hour (3) Peritonitis: Onset Date: ~10/2019 Code(s): K65.9 - Peritonitis, unspecified Status: Acute Assessment and Plan: RESOLVED: status post treatment of Linda peritonitis Has completed antibiotics for Enterococcus in the peritoneal fluid. (4) Encephalopathy: Code(s): G93.40 - Encephalopathy, unspecified Status: Acute Assessment and Plan: RESOLVING - PATIENT IS MORE AWAKE, MOUTH WORDS AND FOLLOWS SIMPLE COMMANDS - dropped his hemoglobin was no obvious bleed, patient on heparin infusion, CT scan of the brain on 11/15/2019: Unchanged mild scattered white matter hypoattenuation consistent with chronic small-vessel ischemic disease. No acute intracranial process. Increasing small left and large right otomastoiditis effusion - patient is off all sedation - EEG was done on 10/20/2019 Which showed significant slowing, likely related to severe encephalopathy. No epileptiform discharges were seen - patient did have a CT scan of the brain on 10/18/2019: was negative for any acute intracranial pathology - he does appear in significant pain. I will continue to treat with p.r.n. fentanyl. (5) Cardiorespiratory arrest: Code(s): I46.9 - Cardiac arrest, cause unspecified Status: Acute Assessment and Plan: PEA arrest on 10/13/2019 likely due to aspiration, ROSC after 1 round of epinephrine - post arrest pt was following commands and so did not require hypothermia protocol (6) ESRD (end stage renal disease) on dialysis: Code(s): N18.6 - End stage renal disease; Z99.2 - Dependence on renal dialysis Status: Acute Assessment and Plan: patient with end-stage renal disease on peritoneal dialysis, FUNGAL PERITONITIS - removal of peritoneal dialysis catheter and insertion of right IJ tunnel dialysis catheter was done on 10/21/2019. - Patient started on hemodialysis on 10/21/2019, - Further dialysis per Nephrology - Continue midodrine. (7) DVT prophylaxis: Code(s): Z29.9 - Encounter for prophylactic measu
[2019-11-28 13:00] LABS: Partial Thromboplastin Time 106.7 SECONDS (22.3-36.8)
--- NOTE | 2019-11-28 13:50 | P.PNNP_ITS ---
Progress Note: A&P Assessment and Plan (1) ESRD (end stage renal disease) on dialysis: Code(s): N18.6 - End stage renal disease; Z99.2 - Dependence on renal dialysis Status: Acute Assessment and Plan: * HD today and continue schedule of T/T/S * maximize fluid removal/ultrafiltration within the limits of hemodynamics * follow electrolytes, volume status, and clearance (2) Gastric perforation: Code(s): K25.5 - Chronic or unspecified gastric ulcer with perforation Status: Acute Assessment and Plan: * as noted by recent CT imaging * complicated by perisplenic abscess * s/p drain placement by IR * last imaging demonstrated gastric leak still present * continue current therapy (3) Peritonitis (acute) generalized: Code(s): K65.0 - Generalized (acute) peritonitis Status: Acute Assessment and Plan: * resolved * PD fluid cultures growing yeast * s/p PD catheter removal and washout * completed 2 week course of antifungal therapy (4) Hyponatremia: Onset Date: Unknown Code(s): E87.1 - Hypo-osmolality and hyponatremia Status: Acute Assessment and Plan: * fluctuates -- improves with dialysis * continue to follow (5) Cardiorespiratory arrest: Code(s): I46.9 - Cardiac arrest, cause unspecified Status: Acute Assessment and Plan: * presumably precipitated by aspiration * now has a tracheostomy * remains on mechanical ventilation (6) Encephalopathy: Code(s): G93.40 - Encephalopathy, unspecified Status: Acute Assessment and Plan: * slow and steady improvement noted * continue supportive care Will continue to follow. Subjective Date/time seen: 11/28/19 12:55 Patient tolerating dialysis treatment reasonably well at the time of my visit ( seen on HD at ~ 12:30PM); tolerating TPN and remains hemodyanamically stable; no apparent distress noted; no events overnight or earlier this AM; slightly tachycardic. Exam Narrative: Exam Narrative: General: somewhat ill-appearing male in NAD; s/p tracheostomy Heart: irregular rhythm; no rub Lungs: coarse and diminished breath sounds Abdomen: soft, nontender, nondistended, positive bowel sounds Extremities: no cyanosis or clubbing; 1+ edema Skin: warm and intact Objective Data Vital Signs Vital Signs: Vital Signs Temp Pulse Resp BP Pulse Ox 11/28/19 12:53 36.5 C 110 H 23 H 134/113 H 100 11/28/19 12:43 110 H 144/88 H 11/28/19 12:30 113 H 130/67 11/28/19 12:15 115 H 142/104 H 11/28/19 12:00 36.5 C 113 H 21 H 133/65 97 11/28/19 11:45 119 H 130/106 H 11/28/19 11:30 118 H 133/65 11/28/19 11:15 118 H 160/76 H 11/28/19 11:00 96 125/60 100 11/28/19 10:45 113 H 118/80 11/28/19 10:30 117 H 104/64 11/28/19 10:15 108 H 124/71 11/28/19 10:00 113 H 21 H 115/91 H 98 11/28/19 09:45 110 H 102/76 11/28/19 09:30 111 H 117/89 11/28/19 09:26 108 H 24 H 11/28/19 09:20 104 H 100 11/28/19 09:15 95 112/67 11/28/19 09:11 101 H 24 H 11/28/19 09:10 97 122/109 H 11/28/19 09:00 35.8 C L 105 H 21 H 132/66 100 11/28/19 08:00 36.6 C 104 H 25 H 107/74 100 11/28/19 05:57 36.4 C
--- NOTE | 2019-11-28 13:50 | PM.PNNEP ---
Progress Note: A&P Assessment and Plan (1) ESRD (end stage renal disease) on dialysis: Code(s): N18.6 - End stage renal disease; Z99.2 - Dependence on renal dialysis Status: Acute Assessment and Plan: HD today and continue schedule of T/T/S maximize fluid removal/ultrafiltration within the limits of hemodynamics follow electrolytes, volume status, and clearance (2) Gastric perforation: Code(s): K25.5 - Chronic or unspecified gastric ulcer with perforation Status: Acute Assessment and Plan: as noted by recent CT imaging complicated by perisplenic abscess s/p drain placement by IR last imaging demonstrated gastric leak still present continue current therapy (3) Peritonitis (acute) generalized: Code(s): K65.0 - Generalized (acute) peritonitis Status: Acute Assessment and Plan: resolved PD fluid cultures growing yeast s/p PD catheter removal and washout completed 2 week course of antifungal therapy (4) Hyponatremia: Onset Date: Unknown Code(s): E87.1 - Hypo-osmolality and hyponatremia Status: Acute Assessment and Plan: fluctuates -- improves with dialysis continue to follow (5) Cardiorespiratory arrest: Code(s): I46.9 - Cardiac arrest, cause unspecified Status: Acute Assessment and Plan: presumably precipitated by aspiration now has a tracheostomy remains on mechanical ventilation (6) Encephalopathy: Code(s): G93.40 - Encephalopathy, unspecified Status: Acute Assessment and Plan: slow and steady improvement noted continue supportive care Will continue to follow. Subjective Date/time seen: 11/28/19 12:55 Patient tolerating dialysis treatment reasonably well at the time of my visit (seen on HD at ~ 12:30PM); tolerating TPN and remains hemodyanamically stable; no apparent distress noted; no events overnight or earlier this AM; slightly tachycardic. Exam Narrative: Exam Narrative: General: somewhat ill-appearing male in NAD; s/p tracheostomy Heart: irregular rhythm; no rub Lungs: coarse and diminished breath sounds Abdomen: soft, nontender, nondistended, positive bowel sounds Extremities: no cyanosis or clubbing; 1+ edema Skin: warm and intact Objective Data Vital Signs Vital Signs: Vital Signs Temp Pulse Resp BP Pulse Ox 11/28/19 12:53 36.5 C 110 H 23 H 134/113 H 100 11/28/19 12:43 110 H 144/88 H 11/28/19 12:30 113 H 130/67 11/28/19 12:15 115 H 142/104 H 11/28/19 12:00 36.5 C 113 H 21 H 133/65 97 11/28/19 11:45 119 H 130/106 H 11/28/19 11:30 118 H 133/65 11/28/19 11:15 118 H 160/76 H 11/28/19 11:00 96 125/60 100 11/28/19 10:45 113 H 118/80 11/28/19 10:30 117 H 104/64 11/28/19 10:15 108 H 124/71 11/28/19 10:00 113 H 21 H 115/91 H 98 11/28/19 09:45 110 H 102/76 11/28/19 09:30 111 H 117/89 11/28/19 09:26 108 H 24 H 11/28/19 09:20 104 H 100 11/28/19 09:15 95 112/67 11/28/19 09:11 101 H 24 H 11/28/19 09:10 97 122/109 H 11/28/19 09:00 35.8 C L 105 H 21 H 132/66 100 11/28/19 08:00 36.6 C 104 H 25 H 107/74 100 11/28/19 05:57 36.4 C 96 21 H 116/67 100 11/28/19 05:55 96 11/28/19 05:05 108 H 100 11/28/19 04:00 36.9 C 104 H 17 129/93 H 99 11/28/19 02:09 109 H 30 H 11/28/19 02:00 102 H 25 H 151/85 H 100 11/28/19 01:59 106 H 31 H 11/28/19 00:00 36.3 C L 112 H 22 H 129/58 L 100 11/27/19 23:20 104 H 98 11/27/19 22:00 110 H 20 102/77 100 11/27/19 21:51 113 H 11/27/19 20:26 112 H 32 H 11/27/19 20:17 108 H 100 11/27/19 20:16 108 H 35 H 11/27/19 20:00 36.6 C 98 15 106/55 L 100 11/27/19 18:00 110 H 17 114/53 L 100 11/27/19 17:30 104 H 100 11/27/19 16:00 37.2 C 108 H 32 H 109/44 L 100 11/27/19 15:50 132 H 22 H
[2019-11-28] MEDS: PANTOPRAZOLE SODIUM IV 40 MG VIAL IV PUSH ×2 (15:05→20:28)
--- NOTE | 2019-11-28 15:52 | PM.IMPN ---
Progress Note: A&P Assessment and Plan (1) Gastric perforation: Code(s): K25.5 - Chronic or unspecified gastric ulcer with perforation Status: Acute Assessment and Plan: He is not a good candidate for surgery given his multiple comorbidities ( 3 or more organ systems in failure at this time respiratory, renal and GI, functional quadriplegia bedridden ). Completed antibiotics and antifungal medications for peritonitis.. Poor prognosis, family has not meet with hospice yet. family still has not decided (2) Severe sepsis: Code(s): A41.9 - Sepsis, unspecified organism; R65.20 - Severe sepsis without septic shock Status: Acute Assessment and Plan: Likely secondary to peritonitis, his dialysis catheter was removed however now he has a gastric perforation leaking into the peritoneum. Not on vasopressors now. Completed antibiotics (3) ESRD (end stage renal disease) on dialysis: Code(s): N18.6 - End stage renal disease; Z99.2 - Dependence on renal dialysis Status: Acute Assessment and Plan: cont HD thru RIJ HD cath (4) Ventilator dependence: Code(s): Z99.11 - Dependence on respirator [ventilator] status Status: Acute Assessment and Plan: Remains on ventilatory support. Subjective Date/time seen: 11/28/19 15:52 patient on vent unable to provide any review of symptom, having dialysis today there are no significant change Review of Systems Review of Systems: ROS unobtainable: Yes unobtainable due to endotracheal tube Exam Narrative: Exam Narrative: elderly frail on vent Const: General: comfortable and no acute distress HENMT: General nose exam: Normal nares present Eyes: Sclera: sclerae normal Neck: Other: trach in place Resp: Other: bilateral fair air entry with harsh breath sound Cardio: Rate: regular rate Rhythm: regular rhythm GI: Auscultation: normal bowel sounds Skin: General skin exam: normal color Neuro: Other: on vent Extrem: General: normal to inspection Psych: Other: on vent Objective Data Vital Signs Vital Signs: Vital Signs - 24 hr 11/27/19 16:00 11/27/19 17:30 11/27/19 18:00 Temperature 99 F Pulse Rate 108 H 104 H 110 H Respiratory Rate 32 H 17 Blood Pressure 109/44 L 114/53 L Pulse Oximetry 100 100 100 11/27/19 20:00 11/27/19 20:16 11/27/19 20:17 Temperature 97.8 F Pulse Rate 98 108 H 108 H Respiratory Rate 15 35 H Blood Pressure 106/55 L Pulse Oximetry 100 100 11/27/19 20:26 11/27/19 21:51 11/27/19 22:00 Temperature Pulse Rate 112 H 113 H 110 H Respiratory Rate 32 H 20 Blood Pressure 102/77 Pulse Oximetry 100 11/27/19 23:20 11/28/19 00:00 11/28/19 01:59 Temperature 97.4 F L Pulse Rate 104 H 112 H 106 H Respiratory Rate 22 H 31 H Blood Pressure 129/58 L Pulse Oximetry 98 100 11/28/19 02:00 11/28/19 02:09 11/28/19 04:00 Temperature 98.4 F Pulse Rate 102 H 109 H 104 H Respiratory Rate 25 H 30 H 17 Blood Pressure 151/85 H 129/93 H Pulse Oximetry 100 99 11/28/19 05:05 11/28/19 05:55 11/28/19 05:57 Temperature 97.6 F Pulse Rate 108 H 96 96 Respiratory Rate 21 H Blood Pressure 116/67 Pulse Oximetry 100 100 11/28/19 08:00 11/28/19 09:00 11/28/19 09:10 Temperature 97.9 F 96.4 F L Pulse Rate 104 H 105 H 97 Respiratory Rate 25 H 21 H Blood Pressure 107/74 132/66 122/109 H Pulse Oximetry 100 100 11/28/19 09:11 11/28/19 09:15 11/28/19 09:20 Temperature Pulse Rate 101 H 95 104 H Respiratory Rate 24 H Blood Pressure 112/67 Pulse Oximetry 100 11/28/19 09:26 11/28/19 09:30 11/28/19 09:45 Temperature Pulse Rate 108 H 111 H 110 H Respiratory Rate 24 H Blood Pressure 117/89 102/76 Pulse Oximetry 11/28/19 10:00 11/28/19 10:15 11/28/19 10:30 Temperature Pulse Rate 113 H 108 H 117 H Respiratory Rate 21 H Blood Pressure 115/91 H 124/71 104/64 Pulse Oximetry 98 11/28/19 10:
[2019-11-28] MEDS: HEPARIN SOD/D5W 100 UNITS/ML 25,000 UNITS/250 ML BAG 12 UNITS IV CONT (16:41)
[2019-11-28 18:33] LABS: Glucose Point of Care 107 (65-105)
[2019-11-28 19:31] LABS: Partial Thromboplastin Time 93.1 SECONDS (22.3-36.8)
[2019-11-28 20:46] LABS: Glucose Point of Care 124 (65-105)
[2019-11-29] VITALS (28 sets, daily range): BP systolic 71–160; BP diastolic 30–69; PULSE 108–126; RESP 17–35; TEMP 36.6–37.8; O2SAT 97–100
[2019-11-29] MEDS: ACETAMINOPHEN ELIXIR 325 MG/10.15 ML UDC 650 MG FEED TUBE (00:37)
[2019-11-29] MEDS: SUCRALFATE SUSP 100 MG/ML 10 ML UDC 1000 MG PO ×5 (00:38→23:05)
[2019-11-29 00:50] LABS: Partial Thromboplastin Time 95.9 SECONDS (22.3-36.8)
[2019-11-29 01:01] LABS: Glucose Point of Care 121 (65-105)
[2019-11-29] MEDS: IPRATROPIUM BR 0.02% INH SOLN 0.5 MG/2.5 ML VIAL INHALATION ×3 (02:21→19:20)
[2019-11-29 06:08] LABS: Glucose Point of Care 107 (65-105)
[2019-11-29 06:08] LABS: Glucose Point of Care 46 (65-105)
[2019-11-29] MEDS: LEVOTHYROXINE SODIUM INJ 100 MCG/5 ML VIAL 50 MCG IV PUSH (06:10)
[2019-11-29] MEDS: CENTRAL LINE FLUSH 10 ML IV PUSH ×2 (06:11→20:17)
[2019-11-29 06:25] LABS: Hematocrit 24.6 % (42.0-52.0); Hemoglobin 7.9 g/dL (14.0-18.0); Mean Corpuscular HGB Conc 32.1 g/dl (32-36); Mean Corpuscular Hemoglobin 32.2 pg (26-34); Mean Corpuscular Volume 100.4 fl (80-100); Mean Platelet Volume 11.1 fl (7.4-10.4); Platelet Count Result 296 k/mm3 (150-375); Red Blood Count 2.45 M/mm3 (4.6-6.20); Red Cell Distribution Width 19.2 % (11.5-14.5); White Blood Count 23.7 K/mm3 (4.5-10.0)
[2019-11-29 06:32] LABS: Partial Thromboplastin Time 102.8 SECONDS (22.3-36.8)
[2019-11-29 06:41] LABS: Alanine Aminotransferase 40 U/L (4-50); Albumin Level 2.2 g/dL (3.5-5.1); Alkaline Phosphatase 447 U/L (38-126); Anion Gap 6 mmol/L (8-16); Aspartate Amino Transferase 52 U/L (17-59); Bilirubin,Total 0.6 mg/dL (0.2-1.3); Blood Urea Nitrogen 48 mg/dL (9-20); Calcium 7.6 mg/dL (8.4-10.2); Carbon Dioxide 26 mmol/L (22-30); Chloride 99 mmol/L (98-107); Estimated CRCL calculation 31 ml/min; Estimated Glomerular Filt Rate 39; Glucose 112 mg/dL (75-110); Magnesium 2.1 mg/dL (1.6-2.3); Potassium 4.1 mmol/L (3.4-5.0); Sodium 131 mmol/L (137-145)
[2019-11-29 09:00] LABS: Glucose Point of Care 139 (65-105)
[2019-11-29] MEDS: MIDODRINE HCL 10 MG TABLET PO ×3 (09:03→17:34)
[2019-11-29] MEDS: NEOMYCIN/POLYMYXIN/BACITRACIN OINTMENT 15 GM TUBE 1 APPLIC TOPICAL (09:03)
[2019-11-29] MEDS: PANTOPRAZOLE SODIUM IV 40 MG VIAL IV PUSH ×2 (09:03→20:16)
[2019-11-29] MEDS: SILVERGEL (ELTA) 45 ML 1 APPLIC TOPICAL (09:04)
--- NOTE | 2019-11-29 09:39 | WPDINTPN ---
Progress Note: A&P Assessment and Plan (1) Acute respiratory failure: Code(s): J96.00 - Acute respiratory failure, unspecified whether with hypoxia or hypercapnia Status: Acute Assessment and Plan: - patient on mechanical ventilation - completed course of antibiotics for aspiration pneumonia - patient now status post tracheostomy on 10/30/2019 - patient had a a ultrasound-guided thoracentesis done on 10/26 on right and 150 mL fluid was removed with culture remained negative. - patient on ASV mode of ventilation and tolerating, 30% FiO2 and peep of 5 - will place patient on PSV 18/5 and start weaning pressure support as tolerated - Continue physical and occupational therapy to work with the patient (2) Severe sepsis: Code(s): A41.9 - Sepsis, unspecified organism; R65.20 - Severe sepsis without septic shock Status: Acute Assessment and Plan: RESOLVED - status post successful treatment of Linda peritonitis with anti fungal therapy For 2 weeks. 11/06/2019: CT chest/abdomen /pelvis showed perforation of the posterior fundus of the stomach with splenic infarct and fluid collection , status post CT-guided placement of a drain with purulent drainage - cultures from abscess on the posterior aspect of the stomach growing Enterococcus, - leukocytosis persists, ID following, completed Vancomycin #12/25 - 11/16/2019 abdominal x-ray with water-soluble contrast showed persistent extravasation of contrast to the defect in the gastric fundus with drainage by the left upper quadrant percutaneous drain - 11/27/2019 abdominal x-ray with water-soluble contrast showed no evident extravasation of the check did gastric contrast to suggest persistent Leak. - Discussed with Dr. Levi. - started tube feed on 11/28/2019: Patient had episode of emesis, tube feeds were held. - continue TPN (3) Peritonitis: Onset Date: ~10/2019 Code(s): K65.9 - Peritonitis, unspecified Status: Acute Assessment and Plan: RESOLVED: status post treatment of Linda peritonitis Has completed antibiotics for Enterococcus in the peritoneal fluid. (4) Encephalopathy: Code(s): G93.40 - Encephalopathy, unspecified Status: Acute Assessment and Plan: RESOLVING - PATIENT IS MORE AWAKE, MOUTH WORDS AND FOLLOWS SIMPLE COMMANDS - dropped his hemoglobin was no obvious bleed, patient on heparin infusion, CT scan of the brain on 11/15/2019: Unchanged mild scattered white matter hypoattenuation consistent with chronic small-vessel ischemic disease. No acute intracranial process. Increasing small left and large right otomastoiditis effusion - patient is off all sedation - EEG was done on 10/20/2019 Which showed significant slowing, likely related to severe encephalopathy. No epileptiform discharges were seen - patient did have a CT scan of the brain on 10/18/2019: was negative for any acute intracranial pathology - he does appear in significant pain. I will continue to treat with p.r.n. fentanyl. (5) Cardiorespiratory arrest: Code(s): I46.9 - Cardiac arrest, cause unspecified Status: Acute Assessment and Plan: PEA arrest on 10/13/2019 likely due to aspiration, ROSC after 1 round of epinephrine - post arrest pt was following commands and so did not require hypothermia protocol (6) ESRD (end stage renal disease) on dialysis: Code(s): N18.6 - End stage renal disease; Z99.2 - Dependence on renal dialysis Status: Acute Assessment and Plan: patient with end-stage renal disease on peritoneal dialysis, FUNGAL PERITONITIS - removal of peritoneal dialysis catheter and insertion of right IJ tunnel dialysis catheter was done on 10/21/2019. - Patient started on hemodialysis on 10/21/2019, - Further dialysis per Nephrology - Continue midodrine. (7) DVT prophylaxis: Code(s): Z29.9 - Encounter for prophylactic measures
[2019-11-29] MEDS: INSULIN DETEMIR 100 UNITS/ML 12 UNITS SUB-Q ×2 (09:44→20:15)
[2019-11-29] MEDS: FAT EMULSIONS IV 20% 250 ML 20.8 ML IVPB (09:48)
[2019-11-29 13:21] LABS: Glucose Point of Care 171 (65-105)
[2019-11-29] MEDS: HEPARIN SOD/D5W 100 UNITS/ML 25,000 UNITS/250 ML BAG 12 UNITS IV CONT (14:23)
--- NOTE | 2019-11-29 15:38 | PM.IMPN ---
Progress Note: A&P Assessment and Plan (1) Gastric perforation: Code(s): K25.5 - Chronic or unspecified gastric ulcer with perforation Status: Acute Assessment and Plan: He is not a good candidate for surgery given his multiple comorbidities ( 3 or more organ systems in failure at this time respiratory, renal and GI, functional quadriplegia bedridden ). Completed antibiotics and antifungal medications for peritonitis.. Poor prognosis, family has not meet with hospice yet. family still has not decided 11/29/19 15:38 patient is still on vent an attempt was made to feed through G-tube however patient vomited will continue TPN prognosis is poor family is not deciding about hospice ordered trying the care (2) Severe sepsis: Code(s): A41.9 - Sepsis, unspecified organism; R65.20 - Severe sepsis without septic shock Status: Acute Assessment and Plan: Likely secondary to peritonitis, his dialysis catheter was removed however now he has a gastric perforation leaking into the peritoneum. Not on vasopressors now. Completed antibiotics (3) ESRD (end stage renal disease) on dialysis: Code(s): N18.6 - End stage renal disease; Z99.2 - Dependence on renal dialysis Status: Acute Assessment and Plan: cont HD thru RIJ HD cath (4) Ventilator dependence: Code(s): Z99.11 - Dependence on respirator [ventilator] status Status: Acute Assessment and Plan: Remains on ventilatory support. Subjective Date/time seen: 11/29/19 15:38 patient is still on vent an attempt was made to feed through G-tube however patient vomited will continue TPN prognosis is poor family is not deciding about hospice ordered trying the care Review of Systems Review of Systems: ROS unobtainable: Yes unobtainable due to endotracheal tube Exam Narrative: Exam Narrative: elderly frail on vent Const: General: comfortable and no acute distress Other: Chronically ill. HENMT: General nose exam: Normal nares present Other: trach in place Eyes: General: appearance normal, both eyes and all related structures Sclera: sclerae normal Neck: Neck: supple Other: trach in place Resp: Effort & Inspection: normal respiratory effort Auscultation: clear to auscultation bilaterally, crackles, rhonchi and diminished lung sounds Other: bilateral fair air entry with harsh breath sound Cardio: Rate: regular rate Rhythm: regular rhythm GI: Auscultation: normal bowel sounds Other: Non distended, soft Skin: General skin exam: normal color Neuro: Other: on vent Extrem: General: normal to inspection Other: edema in both lower extremities. Psych: Other: on vent Objective Data Vital Signs Vital Signs: Vital Signs - 24 hr 11/28/19 16:00 11/28/19 16:23 11/28/19 18:00 Temperature 98.0 F Pulse Rate 115 H 118 H 116 H Respiratory Rate 27 H Blood Pressure 116/46 L Pulse Oximetry 95 97 11/28/19 20:00 11/28/19 20:20 11/28/19 20:56 Temperature 98.3 F Pulse Rate 127 H 118 H 114 H Respiratory Rate 19 27 H Blood Pressure 108/89 Pulse Oximetry 100 11/28/19 21:00 11/28/19 21:04 11/28/19 22:00 Temperature Pulse Rate 114 H 112 H 122 H Respiratory Rate 25 H Blood Pressure Pulse Oximetry 100 11/28/19 23:20 11/29/19 00:00 11/29/19 00:27 Temperature 99.1 F Pulse Rate 118 H 118 H 119 H Respiratory Rate 31 H Blood Pressure 95/69 L Pulse Oximetry 98 100 11/29/19 02:00 11/29/19 02:22 11/29/19 02:25 Temperature Pulse Rate 116 H 111 H 111 H Respiratory Rate 32 H Blood Pressure Pulse Oximetry 97 11/29/19 02:33 11/29/19 04:00 11/29/19 06:00 Temperature 99.7 F H Pulse Rate 110 H 112 H 112 H Respiratory Rate 29 H 27 H Blood Pressure 98/53 L Pulse Oximetry 100 11/29/19 07:35 11/29/19 07:37 11/29/19 07:40 Temperature Pulse Rate 120 H 113 H 109 H Respiratory Rate 17 35 H Blood Pressure Pulse Oximetry 100
--- NOTE | 2019-11-29 16:37 | PM.PNNEP ---
Progress Note: A&P Assessment and Plan (1) ESRD (end stage renal disease) on dialysis: Code(s): N18.6 - End stage renal disease; Z99.2 - Dependence on renal dialysis Status: Acute Assessment and Plan: HD yesterday and continue schedule of T/T/S maximize fluid removal/ultrafiltration within the limits of hemodynamics follow electrolytes, volume status, and clearance (2) Gastric perforation: Code(s): K25.5 - Chronic or unspecified gastric ulcer with perforation Status: Acute Assessment and Plan: as noted by previous CT imaging complicated by perisplenic abscess s/p drain placement by IR last imaging demonstrated NO gastric leak -- however, did not tolerate tube feeds so remains on TPN continue current therapy (3) Peritonitis (acute) generalized: Code(s): K65.0 - Generalized (acute) peritonitis Status: Acute Assessment and Plan: resolved PD fluid cultures growing yeast s/p PD catheter removal and washout completed 2 week course of antifungal therapy (4) Hyponatremia: Onset Date: Unknown Code(s): E87.1 - Hypo-osmolality and hyponatremia Status: Acute Assessment and Plan: fluctuates -- improves with dialysis continue to follow (5) Cardiorespiratory arrest: Code(s): I46.9 - Cardiac arrest, cause unspecified Status: Acute Assessment and Plan: presumably precipitated by aspiration now has a tracheostomy remains on mechanical ventilation (6) Encephalopathy: Code(s): G93.40 - Encephalopathy, unspecified Status: Acute Assessment and Plan: slow and steady improvement noted continue supportive care Will continue to follow. Subjective Date/time seen: 11/29/19 16:37 Tolerated dialysis treatment yesterday without any issue or problems (had about 3L removed; mental status appears the same: no other acute issues reported overnight or earlier today. Exam Narrative: Exam Narrative: General: somewhat ill-appearing male in NAD; s/p tracheostomy Heart: irregular rhythm; no rub Lungs: coarse and diminished breath sounds Abdomen: soft, nontender, nondistended, positive bowel sounds Extremities: no cyanosis or clubbing; 1+ edema Skin: warm and dry Objective Data Vital Signs Vital Signs: Vital Signs Temp Pulse Resp BP Pulse Ox 11/29/19 16:00 110 H 20 71/30 L 100 11/29/19 14:01 113 H 33 H 11/29/19 14:00 108 H 11/29/19 13:57 119 H 100 11/29/19 13:56 119 H 33 H 11/29/19 12:00 36.6 C 112 H 27 H 93/44 L 98 11/29/19 10:43 117 H 98 11/29/19 10:00 119 H 11/29/19 08:00 37.8 C H 121 H 25 H 87/57 L 98 11/29/19 07:40 109 H 35 H 11/29/19 07:37 113 H 100 11/29/19 07:35 120 H 17 11/29/19 06:00 112 H 11/29/19 04:00 37.6 C H 112 H 27 H 98/53 L 100 11/29/19 02:33 110 H 29 H 11/29/19 02:25 111 H 32 H 11/29/19 02:22 111 H 97 11/29/19 02:00 116 H 11/29/19 00:27 37.3 C 119 H 31 H 95/69 L 100 11/29/19 00:00 118 H 11/28/19 23:20 118 H 98 11/28/19 22:00 122 H 11/28/19 21:04 112 H 25 H 11/28/19 21:00 114 H 100 11/28/19 20:56 114 H 27 H 11/28/19 20:20 36.8 C 118 H 19 108/89 100 11/28/19 20:00 127 H 11/28/19 18:00 116 H Intake/Output Intake/Output: Intake & Output 11/26/19 11/27/19 11/28/19 11/29/19 23:59 23:59 23:59 23:59 Intake Total 2989 2671 2675 1367 Output Total 551 623 3873 305 Balance 2754 2377 -575 1062 Meds/Results Medications: Active Medications Generic Name Dose Route Start Last Admin Trade Name Freq PRN Reason Stop Dose Admin Acetaminophen 650 mg 11/20/19 16:02 11/29/19 00:37 Tylenol Elixir FEED TUBE 650 mg Q6H PRN Administration Mild Pain (1-3) or Fever Albuterol 2.5 mg 10/29/19 11:48 11/27/19 20:14 Albuterol Sulf Neb 2.5mg/0.5ml INHALATION 12/26/19 11:49 2.5 mg Q4HRT
[2019-11-29 17:46] LABS: Glucose Point of Care 171 (65-105)
[2019-11-29 20:20] LABS: Glucose Point of Care 203 (65-105)
[2019-11-29 23:08] LABS: Glucose Point of Care 194 (65-105)
[2019-11-30] VITALS (27 sets, daily range): BP systolic 90–140; BP diastolic 40–90; PULSE 91–118; RESP 7–37; TEMP 36.6–37.1; O2SAT 93–100
[2019-11-30] MEDS: IPRATROPIUM BR 0.02% INH SOLN 0.5 MG/2.5 ML VIAL INHALATION ×4 (01:25→21:01)
[2019-11-30 05:10] LABS: Basophils Absolute Auto 0.2 K/mm3 (0.0-0.1); Basophils Percent Auto 0.7 % (0.2-1.2); Eosinophils Absolute Auto 1.3 K/mm3 (0-0.3); Eosinophils Percent Auto 5.9 % (0-4.4); Immature Granulocyte Absolute 0.94 K/mm3 (0.00-0.031); Immature Granulocyte Percent A 4.4 % (0-0.5); Lymphocytes Absolute Auto 5.33 K/mm3 (0.9-3.2); Lymphocytes Percent Auto 24.9 % (18.3-44.2); Mean Corpuscular Hemoglobin 32.3 pg (26-34); Mean Corpuscular Volume 100.8 fl (80-100); Mean Platelet Volume 10.7 fl (7.4-10.4); Monocytes Absolute Auto 2.8 K/mm3 (0.1-0.6); Monocytes Percent Auto 13.2 % (2.6-8.5); Neutrophils Absolute Auto 10.9 K/mm3 (1.3-6.7); Neutrophils Percent Auto 50.9 % (45.5-73.1); Platelet Count Result 330 k/mm3 (150-375); Red Blood Count 2.48 M/mm3 (4.6-6.20); Red Cell Distribution Width 18.9 % (11.5-14.5); White Blood Count 21.4 K/mm3 (4.5-10.0)
[2019-11-30] MEDS: CENTRAL LINE FLUSH 10 ML IV PUSH ×3 (05:15→20:30)
[2019-11-30] MEDS: SUCRALFATE SUSP 100 MG/ML 10 ML UDC 1000 MG PO ×3 (05:15→17:22)
[2019-11-30] MEDS: LEVOTHYROXINE SODIUM INJ 100 MCG/5 ML VIAL 50 MCG IV PUSH (05:16)
[2019-11-30 05:20] LABS: INR 1.3
[2019-11-30 05:20] LABS: Glucose Point of Care 155 (65-105)
[2019-11-30 05:21] LABS: Partial Thromboplastin Time 66.5 SECONDS (22.3-36.8)
[2019-11-30] MEDS: HEPARIN SODIUM 5,000 UNITS/ML VIAL 2500 UNITS IV PUSH (05:24)
[2019-11-30 05:26] LABS: Alanine Aminotransferase 35 U/L (4-50); Albumin Level 2.3 g/dL (3.5-5.1); Alkaline Phosphatase 399 U/L (38-126); Anion Gap 11 mmol/L (8-16); Aspartate Amino Transferase 45 U/L (17-59); Bilirubin,Total 0.6 mg/dL (0.2-1.3); Blood Urea Nitrogen 69 mg/dL (9-20); Calcium 7.8 mg/dL (8.4-10.2); Carbon Dioxide 23 mmol/L (22-30); Chloride 96 mmol/L (98-107); Estimated CRCL calculation 23 ml/min; Estimated Glomerular Filt Rate 28; Glucose 137 mg/dL (75-110); Magnesium 2.2 mg/dL (1.6-2.3); Potassium 4.4 mmol/L (3.4-5.0); Sodium 130 mmol/L (137-145)
[2019-11-30] MEDS: FAT EMULSIONS IV 20% 250 ML 20.8 ML IVPB (07:41)
[2019-11-30] MEDS: INSULIN DETEMIR 100 UNITS/ML 12 UNITS SUB-Q ×2 (07:41→20:28)
[2019-11-30 07:42] LABS: Glucose Point of Care 145 (65-105)
[2019-11-30] MEDS: MIDODRINE HCL 10 MG TABLET PO ×3 (07:43→17:22)
[2019-11-30] MEDS: NEOMYCIN/POLYMYXIN/BACITRACIN OINTMENT 15 GM TUBE 1 APPLIC TOPICAL (07:43)
[2019-11-30] MEDS: PANTOPRAZOLE SODIUM IV 40 MG VIAL IV PUSH ×2 (07:43→20:29)
[2019-11-30] MEDS: SILVERGEL (ELTA) 45 ML 1 APPLIC TOPICAL (07:44)
--- NOTE | 2019-11-30 08:24 | PM.PNNEP ---
Progress Note: A&P Assessment and Plan (1) ESRD (end stage renal disease) on dialysis: Code(s): N18.6 - End stage renal disease; Z99.2 - Dependence on renal dialysis Status: Acute Assessment and Plan: HD due tomorrow. He still has some swelling. Will try dry ultrafiltration before dialysis tomorrow his blood pressure has been tolerating the fluid removal lately. (2) Gastric perforation: Code(s): K25.5 - Chronic or unspecified gastric ulcer with perforation Status: Acute Assessment and Plan: as noted by previous CT imaging complicated by perisplenic abscess s/p drain placement by IR Latest imaging shows no gastric leak. Still on TPN because he does not tolerate tube feedings (3) Peritonitis (acute) generalized: Code(s): K65.0 - Generalized (acute) peritonitis Status: Acute Assessment and Plan: resolved (4) Hyponatremia: Onset Date: Unknown Code(s): E87.1 - Hypo-osmolality and hyponatremia Status: Acute Assessment and Plan: fluctuates -- improves with dialysis continue to follow (5) Cardiorespiratory arrest: Code(s): I46.9 - Cardiac arrest, cause unspecified Status: Acute Assessment and Plan: presumably precipitated by aspiration now has a tracheostomy remains on mechanical ventilation (6) Encephalopathy: Code(s): G93.40 - Encephalopathy, unspecified Status: Acute Assessment and Plan: slow and steady improvement noted continue supportive care Subjective Date/time seen: 11/30/19 08:24 Interval history: patient is awake. He regards examiner but does not interact much more than that. His resting comfortably in bed. He is still on the ventilator. He is not on pressors. Review of Systems Cardiovascular: Cardiovascular: Reports no additional cardiovascular complaints Respiratory: Respiratory: Reports no additional respiratory complaints Gastrointestinal: Gastrointestinal: Reports no additional gastrointestinal complaints Genitourinary: Genitourinary: Reports no additional male genitourinary complaints Exam Narrative: Exam Narrative: Well developed well-nourished gentleman lying in the hospital bed who looks chronically ill skin is warm and dry without rash Lungs are symmetric and coarse Heart regular rate and rhythm without rub or gallop Abdomen bowel sounds positive soft nontender Extremities show 2+ presacral edema Objective Data Vital Signs Vital Signs: Vital Signs - 24 hr 11/29/19 10:00 11/29/19 10:43 11/29/19 12:00 Temperature 36.6 C Pulse Rate 119 H 117 H 112 H Respiratory Rate 27 H Blood Pressure 93/44 L Pulse Oximetry 98 98 11/29/19 13:56 11/29/19 13:57 11/29/19 14:00 Temperature Pulse Rate 119 H 119 H 108 H Respiratory Rate 33 H Blood Pressure Pulse Oximetry 100 11/29/19 14:01 11/29/19 16:00 11/29/19 16:42 Temperature Pulse Rate 113 H 110 H 122 H Respiratory Rate 33 H 20 Blood Pressure 71/30 L Pulse Oximetry 100 97 11/29/19 18:00 11/29/19 19:20 11/29/19 19:25 Temperature Pulse Rate 118 H 117 H 117 H Respiratory Rate 28 H Blood Pressure Pulse Oximetry 97 11/29/19 19:28 11/29/19 20:00 11/29/19 22:00 Temperature 36.8 C Pulse Rate 118 H 115 H 112 H Respiratory Rate 27 H 35 H Blood Pressure 160/67 H Pulse Oximetry 100 11/29/19 23:20 11/30/19 00:00 11/30/19 01:25 Temperature 36.9 C Pulse Rate 126 H 113 H 112 H Respiratory Rate 22 H 28 H Blood Pressure 133/77 Pulse Oximetry 99 100 11/30/19 01:28 11/30/19 01:32 11/30/19 02:00 Temperature Pulse Rate 118 H 115 H 112 H Respiratory Rate 27 H Blood Pressure Pulse Oximetry 100 11/30/19 04:00 11/30/19 05:11 11/30/19 06:00 Temperature 36.6 C Pulse Rate 114 H 112 H 110 H Respiratory Rate 20 Blood Pressure 123/90 Pulse Oximetry 100 99 11/30/19 08:01 Temperature 36.9 C
--- NOTE | 2019-11-30 08:53 | P.PNINT_ITS ---
Progress Note: A&P Assessment and Plan (1) Acute respiratory failure: Code(s): J96.00 - Acute respiratory failure, unspecified whether with hypoxia or hypercapnia Status: Acute Assessment and Plan: - patient on mechanical ventilation - completed course of antibiotics for aspiration pneumonia - patient now status post tracheostomy on 10/30/2019 - patient had a a ultrasound-guided thoracentesis done on 10/26 on right and 150 mL fluid was removed with culture remained negative. - patient on ASV mode of ventilation and tolerating, 30% FiO2 and peep of 5 - will place patient on PSV 18/5 and start weaning pressure support as tolerated - Continue physical and occupational therapy to work with the patient (2) Severe sepsis: Code(s): A41.9 - Sepsis, unspecified organism; R65.20 - Severe sepsis without septic shock Status: Acute Assessment and Plan: RESOLVED - status post successful treatment of Linda peritonitis with anti fungal therapy For 2 weeks. 11/06/2019: CT chest/abdomen /pelvis showed perforation of the posterior fundus of the stomach with splenic infarct and fluid collection , status post CT-guided placement of a drain with purulent drainage - cultures from abscess on the posterior aspect of the stomach growing Enterococcus, - leukocytosis persists, ID following, completed Vancomycin #12/25 - 11/16/2019 abdominal x-ray with water-soluble contrast showed persistent extravasation of contrast to the defect in the gastric fundus with drainage by the left upper quadrant percutaneous drain - 11/27/2019 abdominal x-ray with water-soluble contrast showed no evident extravasation of the check did gastric contrast to suggest persistent Leak. - Discussed with Dr. Levi. - started tube feed on 11/28/2019: Patient had episode of emesis, tube feeds were held. - continue TPN (3) Peritonitis: Onset Date: ~10/2019 Code(s): K65.9 - Peritonitis, unspecified Status: Acute Assessment and Plan: RESOLVED: status post treatment of Linda peritonitis Has completed antibiotics for Enterococcus in the peritoneal fluid. (4) Encephalopathy: Code(s): G93.40 - Encephalopathy, unspecified Status: Acute Assessment and Plan: RESOLVING - PATIENT IS MORE AWAKE, MOUTH WORDS AND FOLLOWS SIMPLE COMMANDS - dropped his hemoglobin was no obvious bleed, patient on heparin infusion, CT scan of the brain on 11/15/2019: Unchanged mild scattered white matter hypoattenuation consistent with chronic small-vessel ischemic disease. No acute intracranial process. Increasing small left and large right otomastoiditis effusion - patient is off all sedation - EEG was done on 10/20/2019 Which showed significant slowing, likely related to severe encephalopathy. No epileptiform discharges were seen - patient did have a CT scan of the brain on 10/18/2019: was negative for any acute intracranial pathology - he does appear in significant pain. I will continue to treat with p.r.n. fentanyl. (5) Cardiorespiratory arrest: Code(s): I46.9 - Cardiac arrest, cause unspecified Status: Acute Assessment and Plan: PEA arrest on 10/13/2019 likely due to aspiration, ROSC after 1 round of epinephrine - post arrest pt was following commands and so did not require hypothermia protocol (6) ESRD (end stage renal disease) on dialysis: Code(s): N18.6 - End stage renal disease; Z99.2 - Dependence on renal dialysis Status: Acute Assessment and Plan: patient with end-stage re
[2019-11-30] MEDS: HEPARIN SOD/D5W 100 UNITS/ML 25,000 UNITS/250 ML BAG 13 UNITS IV CONT (10:34)
--- NOTE | 2019-11-30 11:13 | PCDIET ---
ICU Rounding Note: Tube feedings initiated 11/28/19, then held after emesis. Clinimix E 07/30 continues at 80mL/hr with 250mL 20% lipids daily. MD to discuss appropriateness of Reglan with surgery. If unable to resume/tolerate gastric feedings, may need to consider transitioning to jejunal feedings (if medically appropriate). In mean time, agree with Clinimix formulation/rate. Last recorded weight is 77.7kg which is increased from last review. Bowel Motility: BM x 2 today. Labs Reviewed: Hgb (8.0), Hct (25.0), Glu (145), BUN (69), Cr (2.3), Na (130), Alb (2.3), Ade Ca (9.16) Meds Noted: Albumin, Albuterol, Fentanyl, Novolog, Levemir, Atrovent, Synthroid, Midodrine, Protonix Additional Notes: No change in skin reported. Following daily in ICU rounds. Assessing/reassessing every Saturday/Saturday.
[2019-11-30 12:02] LABS: Glucose Point of Care 202 (65-105)
[2019-11-30] MEDS: INSULIN ASPART (*BKC) 100 UNITS/ML SUB-Q (12:02)
[2019-11-30 12:18] LABS: Partial Thromboplastin Time 132.3 SECONDS (22.3-36.8)
--- NOTE | 2019-11-30 12:31 | PM.IMPN ---
Progress Note: A&P Assessment and Plan (1) Gastric perforation: Code(s): K25.5 - Chronic or unspecified gastric ulcer with perforation Status: Acute Assessment and Plan: He is not a good candidate for surgery given his multiple comorbidities ( 3 or more organ systems in failure at this time respiratory, renal and GI, functional quadriplegia bedridden ). Completed antibiotics and antifungal medications for peritonitis.. Poor prognosis, family has not meet with hospice yet. family still has not decided 11/30/19 12:31 patient is still on vent an attempt was made to feed through G-tube however patient vomited, will continue TPN prognosis is poor family is not deciding about hospice, D/W sorter/assay tech will refer patient for LTAC admission and further recommendation to follow (2) Severe sepsis: Code(s): A41.9 - Sepsis, unspecified organism; R65.20 - Severe sepsis without septic shock Status: Acute Assessment and Plan: Likely secondary to peritonitis, his dialysis catheter was removed however now he has a gastric perforation leaking into the peritoneum. Not on vasopressors now. Completed antibiotics (3) ESRD (end stage renal disease) on dialysis: Code(s): N18.6 - End stage renal disease; Z99.2 - Dependence on renal dialysis Status: Acute Assessment and Plan: cont HD thru RIJ HD cath (4) Ventilator dependence: Code(s): Z99.11 - Dependence on respirator [ventilator] status Status: Acute Assessment and Plan: Remains on ventilatory support. Subjective Date/time seen: 11/30/19 12:31 patient is still on vent an attempt was made to feed through G-tube however patient vomited, will continue TPN prognosis is poor family is not deciding about hospice, D/W sorter/assay tech will refer patient for LTAC admission and further recommendation to follow Review of Systems Review of Systems: ROS unobtainable: Yes unobtainable due to endotracheal tube Exam Narrative: Exam Narrative: elderly frail Const: General: comfortable and no acute distress HENMT: General nose exam: Normal nares present Eyes: Sclera: sclerae normal Neck: Other: trach in place Resp: Other: bilateral poor air entry with harsh breath sounds Cardio: Rate: regular rate Rhythm: regular rhythm GI: Auscultation: normal bowel sounds Skin: General skin exam: normal color Neuro: Other: on vent Extrem: General: normal to inspection Psych: Other: on vent Objective Data Vital Signs Vital Signs: Vital Signs - 24 hr 11/29/19 13:56 11/29/19 13:57 11/29/19 14:00 Temperature Pulse Rate 119 H 119 H 108 H Respiratory Rate 33 H Blood Pressure Pulse Oximetry 100 11/29/19 14:01 11/29/19 16:00 11/29/19 16:42 Temperature Pulse Rate 113 H 110 H 122 H Respiratory Rate 33 H 20 Blood Pressure 71/30 L Pulse Oximetry 100 97 11/29/19 18:00 11/29/19 19:20 11/29/19 19:25 Temperature Pulse Rate 118 H 117 H 117 H Respiratory Rate 28 H Blood Pressure Pulse Oximetry 97 11/29/19 19:28 11/29/19 20:00 11/29/19 22:00 Temperature 98.2 F Pulse Rate 118 H 115 H 112 H Respiratory Rate 27 H 35 H Blood Pressure 160/67 H Pulse Oximetry 100 11/29/19 23:20 11/30/19 00:00 11/30/19 01:25 Temperature 98.5 F Pulse Rate 126 H 113 H 112 H Respiratory Rate 22 H 28 H Blood Pressure 133/77 Pulse Oximetry 99 100 11/30/19 01:28 11/30/19 01:32 11/30/19 02:00 Temperature Pulse Rate 118 H 115 H 112 H Respiratory Rate 27 H Blood Pressure Pulse Oximetry 100 11/30/19 04:00 11/30/19 05:11 11/30/19 06:00 Temperature 97.9 F Pulse Rate 114 H 112 H 110 H Respiratory Rate 20 Blood Pressure 123/90 Pulse Oximetry 100 99 11/30/19 08:00 11/30/19 08:01 11/30/19 08:45 Temperature 98.4 F Pulse Rate 118 H 112 H 118 H Respiratory Rate 32 H 7 L Blood Pressure 140/72 Pulse Oximetry 100 100 11/30/19 09:30 11/30/19
[2019-11-30 17:28] LABS: Glucose Point of Care 185 (65-105)
[2019-11-30 18:48] LABS: Partial Thromboplastin Time 119.4 SECONDS (22.3-36.8)
[2019-11-30 23:59] LABS: Glucose Point of Care 175 (65-105)
[2019-12-01] VITALS (41 sets, daily range): BP systolic 97–144; BP diastolic 40–84; PULSE 94–118; RESP 13–36; TEMP 36.6–37.1; O2SAT 97–100
[2019-12-01] MEDS: SUCRALFATE SUSP 100 MG/ML 10 ML UDC 1000 MG PO ×3 (00:38→14:10)
[2019-12-01 01:44] LABS: Partial Thromboplastin Time 72.2 SECONDS (22.3-36.8)
[2019-12-01] MEDS: IPRATROPIUM BR 0.02% INH SOLN 0.5 MG/2.5 ML VIAL INHALATION ×4 (03:17→19:48)
[2019-12-01 04:49] LABS: Basophils Absolute Auto 0.2 K/mm3 (0.0-0.1); Basophils Percent Auto 0.7 % (0.2-1.2); Eosinophils Percent Auto 4.9 % (0-4.4); Hemoglobin 7.6 g/dL (14.0-18.0); Immature Granulocyte Percent A 4.7 % (0-0.5); Lymphocytes Absolute Auto 4.48 K/mm3 (0.9-3.2); Lymphocytes Percent Auto 21.2 % (18.3-44.2); Mean Corpuscular Hemoglobin 32.5 pg (26-34); Mean Corpuscular Volume 98.3 fl (80-100); Mean Platelet Volume 10.7 fl (7.4-10.4); Monocytes Absolute Auto 2.9 K/mm3 (0.1-0.6); Monocytes Percent Auto 13.9 % (2.6-8.5); Neutrophils Absolute Auto 11.5 K/mm3 (1.3-6.7); Neutrophils Percent Auto 54.6 % (45.5-73.1); Platelet Count Result 340 k/mm3 (150-375); Red Blood Count 2.34 M/mm3 (4.6-6.20); Red Cell Distribution Width 18.3 % (11.5-14.5); White Blood Count 21.1 K/mm3 (4.5-10.0)
[2019-12-01 05:06] LABS: Alanine Aminotransferase 36 U/L (4-50); Albumin Level 2.3 g/dL (3.5-5.1); Alkaline Phosphatase 392 U/L (38-126); Anion Gap 12 mmol/L (8-16); Aspartate Amino Transferase 54 U/L (17-59); Bilirubin,Total 0.6 mg/dL (0.2-1.3); Blood Urea Nitrogen 86 mg/dL (9-20); Calcium 7.7 mg/dL (8.4-10.2); Carbon Dioxide 21 mmol/L (22-30); Chloride 94 mmol/L (98-107); Estimated CRCL calculation 20 ml/min; Estimated Glomerular Filt Rate 23; Glucose 153 mg/dL (75-110); Magnesium 2.3 mg/dL (1.6-2.3); Phosphorus 8.8 mg/dL (2.5-4.5); Potassium 5.2 mmol/L (3.4-5.0); Sodium 127 mmol/L (137-145)
[2019-12-01 05:16] LABS: CRP 21.3 mg/dL (<1.0)
[2019-12-01 05:21] LABS: Hypochromasia 1+ (NORMAL); Platelet Estimate Adequate (Adequate)
[2019-12-01 05:22] LABS: Microcytosis 1+ (NORMAL)
[2019-12-01 05:23] LABS: Atypical Lymphocytes Present; Macrocytosis 1+ (NORMAL)
[2019-12-01] MEDS: HEPARIN SOD/D5W 100 UNITS/ML 25,000 UNITS/250 ML BAG 11 UNITS IV CONT (05:38)
[2019-12-01] MEDS: LEVOTHYROXINE SODIUM INJ 100 MCG/5 ML VIAL 50 MCG IV PUSH (05:39)
[2019-12-01] MEDS: CENTRAL LINE FLUSH 10 ML IV PUSH ×3 (05:40→20:40)
[2019-12-01] MEDS: ALBUMIN HUMAN 25% 12.5 GM/50ML 50 ML IVPB (08:14)
--- NOTE | 2019-12-01 08:31 | PM.PNNEP ---
Progress Note: A&P Assessment and Plan (1) ESRD (end stage renal disease) on dialysis: Code(s): N18.6 - End stage renal disease; Z99.2 - Dependence on renal dialysis Status: Acute Assessment and Plan: HD Is in process. He still has some swelling. His blood pressure is pretty good. Will give albumin before dialysis and also use midodrine and norepinephrine if needed. his blood pressure has been tolerating the fluid removal lately. (2) Gastric perforation: Code(s): K25.5 - Chronic or unspecified gastric ulcer with perforation Status: Acute Assessment and Plan: as noted by previous CT imaging Latest imaging shows no more leak. (3) Peritonitis (acute) generalized: Code(s): K65.0 - Generalized (acute) peritonitis Status: Acute Assessment and Plan: resolved (4) Hyponatremia: Onset Date: Unknown Code(s): E87.1 - Hypo-osmolality and hyponatremia Status: Acute Assessment and Plan: fluctuates -- improves with dialysis continue to follow (5) Cardiorespiratory arrest: Code(s): I46.9 - Cardiac arrest, cause unspecified Status: Acute Assessment and Plan: presumably precipitated by aspiration now has a tracheostomy remains on mechanical ventilation (6) Encephalopathy: Code(s): G93.40 - Encephalopathy, unspecified Status: Acute Assessment and Plan: slow and steady improvement noted continue supportive care Subjective Date/time seen: 12/01/19 08:31 Interval history: patient is awake. on HD rocio it well. starting with albumin right away then prn. use midodrine and norepi if needed to get fluid off. seen at 8:30am His resting comfortably in bed. He is still on the ventilator. He is not on pressors. Review of Systems Review of Systems: ROS unobtainable: Yes unobtainable due to medical condition Exam Narrative: Exam Narrative: WDWN in NAD skin no rash head ncat lungs clear cor reg no rub abd BS+ nontender and soft ext no edema. Objective Data Vital Signs Vital Signs: Vital Signs - 24 hr 11/30/19 08:45 11/30/19 09:30 11/30/19 11:24 Temperature Pulse Rate 118 H 114 H 103 H Respiratory Rate 7 L 20 Blood Pressure Pulse Oximetry 100 100 11/30/19 11:35 11/30/19 12:00 11/30/19 13:53 Temperature 37.1 C Pulse Rate 102 H 92 93 Respiratory Rate 23 H 24 H Blood Pressure 124/60 Pulse Oximetry 100 93 96 11/30/19 14:03 11/30/19 15:34 11/30/19 16:00 Temperature 36.9 C Pulse Rate 99 99 102 H Respiratory Rate 23 H 23 H 29 H Blood Pressure 90/40 L Pulse Oximetry 96 100 11/30/19 17:24 11/30/19 18:00 11/30/19 20:00 Temperature 36.6 C Pulse Rate 104 H 108 H 96 Respiratory Rate 18 Blood Pressure 105/62 Pulse Oximetry 99 100 11/30/19 21:02 11/30/19 21:12 11/30/19 22:00 Temperature Pulse Rate 96 94 93 Respiratory Rate 37 H 33 H Blood Pressure Pulse Oximetry 100 11/30/19 23:30 12/01/19 00:00 12/01/19 02:00 Temperature 36.7 C Pulse Rate 94 94 99 Respiratory Rate 18 Blood Pressure 105/56 L Pulse Oximetry 100 100 12/01/19 03:18 12/01/19 03:20 12/01/19 03:28 Temperature Pulse Rate 95 95 97 Respiratory Rate 36 H 29 H Blood Pressure Pulse Oximetry 100 12/01/19 04:00 12/01/19 05:17 12/01/19 06:00 Temperature 36.6 C Pulse Rate 96 96 100 Respiratory Rate 18 Blood Pressure 110/66 Pulse Oximetry 100 99 Intake/Output Intake/Output: Intake & Output 11/28/19 11/29/19 11/30/19 12/01/19 23:59 23:59 23:59 23:59 Intake Total 2675 2565 2595 1211 Output Total 3212 605 50 200 Balance -537 [facility] 2545 1011 Meds/Results Medications: Active Medications Generic Name Dose Route Start Last Admin Trade Name Freq PRN Reason Stop Dose Admin Acetaminophen 650 mg 11/20/19 16:02 11/29/19 00:37 Tylenol Elixir FEED TUBE 650 mg Q6H PRN Administration Mild Pain (
[2019-12-01 08:47] LABS: Glucose Point of Care 136 (65-105)
[2019-12-01] MEDS: MIDODRINE HCL 10 MG TABLET PO ×2 (08:47→14:10)
[2019-12-01] MEDS: NEOMYCIN/POLYMYXIN/BACITRACIN OINTMENT 15 GM TUBE 1 APPLIC TOPICAL (08:49)
[2019-12-01] MEDS: PANTOPRAZOLE SODIUM IV 40 MG VIAL IV PUSH ×2 (08:49→20:40)
[2019-12-01] MEDS: SILVERGEL (ELTA) 45 ML 1 APPLIC TOPICAL (08:50)
[2019-12-01] MEDS: INSULIN DETEMIR 100 UNITS/ML 12 UNITS SUB-Q ×2 (08:53→20:37)
[2019-12-01] MEDS: FAT EMULSIONS IV 20% 250 ML 20.8 ML IVPB (08:53)
[2019-12-01 09:00] LABS: Partial Thromboplastin Time 76.5 SECONDS (22.3-36.8)
[2019-12-01] MEDS: HEPARIN SODIUM 1,000 UNITS/ML VIAL 5000 UNITS (09:36)
--- NOTE | 2019-12-01 11:02 | PCDIET ---
Nutrition Follow-Up Complete: Nutrition Diagnosis: Inadequate oral intake related to oral intubation as evidenced by NPO status. Nutrition Goal: Patient to meet estimated nutritional needs. Goal met. Patient continues on Clinimix E 5/15 at 80mL/hr with 250mL 20% lipids daily. MD ordered to re-start Vital 1.2 at 20mL/hr today. Once able to advance tube feedings, will recommend tapering Clinimix until able to fully meet estimated needs enterally. Would consider changing to Clinimix 5/15 (no electrolytes), given increased K+ and PO4. May also need phosphorus binder as enteral feedings progress. Last recorded weight is 77.5 kg which is stable. Bowel Motility: BM x 3 documented today. Labs Reviewed: Hgb (7.6), Hct (23.0), Glu (136), BUN (86), Cr (2.7), K (5.2), Na (127), Alb (2.3), Ade Ca (9.06), PO4 (8.8) Meds Noted: Albuterol, Synthroid, Albumin, Midodrine, Fentanyl, Heparin, Novolog, Levemir, Atrovent, Protonix, Sucralfate Additional Notes: Wound care continues with no significant changes reported. Will continue to monitor with same goal. Nutrition Monitoring and Evaluation: Follow up every Saturday/Saturday. Follow daily in ICU rounds.
--- NOTE | 2019-12-01 11:40 | WPDINTPN ---
Progress Note: A&P Assessment and Plan (1) Acute respiratory failure: Code(s): J96.00 - Acute respiratory failure, unspecified whether with hypoxia or hypercapnia Status: Acute Assessment and Plan: - patient on mechanical ventilation - completed course of antibiotics for aspiration pneumonia - patient now status post tracheostomy on 10/30/2019 - patient had a a ultrasound-guided thoracentesis done on 10/26 on right and 150 mL fluid was removed with culture remained negative. - patient on ASV mode of ventilation and tolerating, 30% FiO2 and peep of 5 - will place patient on PSV 18/5 and start weaning pressure support as tolerated after hemodialysis session today - Continue physical and occupational therapy to work with the patient (2) Severe sepsis: Code(s): A41.9 - Sepsis, unspecified organism; R65.20 - Severe sepsis without septic shock Status: Acute Assessment and Plan: RESOLVED - status post successful treatment of Linda peritonitis with anti fungal therapy For 2 weeks. 11/06/2019: CT chest/abdomen /pelvis showed perforation of the posterior fundus of the stomach with splenic infarct and fluid collection , status post CT-guided placement of a drain with purulent drainage - cultures from abscess on the posterior aspect of the stomach growing Enterococcus, - leukocytosis persists, ID following, completed Vancomycin #12/25 - 11/16/2019 abdominal x-ray with water-soluble contrast showed persistent extravasation of contrast to the defect in the gastric fundus with drainage by the left upper quadrant percutaneous drain - 11/27/2019 abdominal x-ray with water-soluble contrast showed no evident extravasation of the check did gastric contrast to suggest persistent Leak. - Discussed with Dr. Levi today who recommends resuming tube feeds if tolerated by patient - I will start elemental tube feed today at 20 mL/hours and monitor. May need Reglan. - continue TPN for now. I will discontinue TPN if patient is able to tolerate tube feeds (3) Peritonitis: Onset Date: ~10/2019 Code(s): K65.9 - Peritonitis, unspecified Status: Acute Assessment and Plan: RESOLVED: status post treatment of Linda peritonitis Has completed antibiotics for Enterococcus in the peritoneal fluid. - patient has remained mildly tender in his abdomen throughout his hospital course (4) Encephalopathy: Code(s): G93.40 - Encephalopathy, unspecified Status: Acute Assessment and Plan: RESOLVING - PATIENT IS MORE AWAKE, MOUTH WORDS AND FOLLOWS SIMPLE COMMANDS - dropped his hemoglobin was no obvious bleed, patient on heparin infusion, CT scan of the brain on 11/15/2019: Unchanged mild scattered white matter hypoattenuation consistent with chronic small-vessel ischemic disease. No acute intracranial process. Increasing small left and large right otomastoiditis effusion - patient is off all sedation - EEG was done on 10/20/2019 Which showed significant slowing, likely related to severe encephalopathy. No epileptiform discharges were seen - patient did have a CT scan of the brain on 10/18/2019: was negative for any acute intracranial pathology - he does appear in significant pain and appears uncomfortable. I will continue to treat with p.r.n. fentanyl. (5) Cardiorespiratory arrest: Code(s): I46.9 - Cardiac arrest, cause unspecified Status: Acute Assessment and Plan: PEA arrest on 10/13/2019 likely due to aspiration, ROSC after 1 round of epinephrine - post arrest pt was following commands and so did not require hypothermia protocol (6) ESRD (end stage renal disease) on dialysis: Code(s): N18.6 - End stage renal disease; Z99.2 - Dependence on renal dialysis Status: Acute Assessment and Plan: patient with end-stage renal disease on peritoneal dialysis, FUNGAL PERITONITIS - removal of peritoneal dialy
[2019-12-01 12:36] LABS: Glucose Point of Care 110 (65-105)
--- NOTE | 2019-12-01 13:21 | PM.PNGS ---
Progress Note: A&P Assessment and Plan (1) Gastric perforation: Code(s): K25.5 - Chronic or unspecified gastric ulcer with perforation Status: Acute Assessment and Plan: Now resolved, but patient did not tolerate his initial trial of tube feedings last Saturday. Consider new trial again today since he is not having much come out the G-tube with it on intermittent low suction.. Additional Plan The last remaining SILVA drain from left lower quadrant has now been out since 11/15. The left upper quadrant drain that was in the lesser sac was removed 11/02. Will stop packing the site of the old peritoneal dialysis catheter since it is almost healed in. For this site we will apply bacitracin or Neosporin ointment and cover with the 2 x 2 and tape. Drainage from the left upper quadrant pigtail catheter placed by CT guidance has been 20 cc and 15 cc respectively for the last 2 days. It looks mildly purulent. A 11/26 Contrast injection at the stomach through the G-tube showed no extravasation. Therefore, agree with proceeding to start slow drip antral elemental tube feedings he the G-tube later today. Have discussed this with real time analyst. If the patient seems to fail on this again will hold tube feeds for a while and start Reglan and then see if these can be restarted. Will need to watch and see if any signs of this show up in the left upper quadrant abscess drain. If drainage significantly increases we will need to re-evaluate but if not would gradually advance tube feeds through the G-tube. [place] Subjective Subjective Date/Time Seen: 12/01/19 10:21 Patient seen in his ICU bed. He was currently receiving hemodialysis. Nurse reports that to these have not been tried in several days and he is only had less than 190 cc and less than 200 cc out respectively the last 2 days from his G tube with it on low intermittent suction. Patient is tracking people in his room with his eyes and also following simple commands. Review of Systems Review of Systems: ROS unobtainable: Yes unobtainable due to endotracheal tube, unobtainable due to medical condition and unobtainable due to mental status Exam Narrative: Exam Narrative: afebrile Eyes: General: appearance normal, both eyes and all related structures Sclera: sclerae normal EOM: EOMs intact bilaterally Neck: Neck: normal visual inspection, full ROM, no JVD and other ( right IJ tunneled dialysis catheter dry and intact.) Lymphatic: lymphadenopathy not noted Other: Incisions on right neck clean and dry. Triple lumen central line on the left without signs of purulent exudate. Patient now has a tracheostomy tube placed by ENT. GI: Inspection: normal to inspection, non-distended, incision ( Perulent fluid the LLQ SILVA drain, dressings dry.), scar and no visible herniation Auscultation: normal bowel sounds and Hypoactive bowel sounds present Rectal Exam: deferred Other: All abdominal wounds inspected today Left upper quadrant drain site: well dressed and minimal drainage in drainage bag that is yellowish and slightly mucousy appearing. Site of previous left lower quadrant SILVA drain: without significant drianage and now healed. Site of previous left lower quadrant peritoneal dialysis catheter: site now is almost sealed in. Probes less than 0.5 cm deep. Will cover with gauze and apply some antibiotic ointment now and we stopped packing last week. Site of right lower quadrant SILVA drain: healed. G-tube site: clean without much drainage around it. : Other: Weems catheter has been out now for more than a week now. Skin: General skin exam: no rashes or lesions noted and pallor Other: Small open stable wound to medial aspect of left foot near 1st metatarsal head, no signs of infection or active drainage. Wound bed is pale with pinipoint black area in the center, no eschar. Neuro: General: moves all extremities, no focal motor deficits and Unable to assess gait Cranial
[2019-12-01 14:37] LABS: Anion Gap 7 mmol/L (8-16); Blood Urea Nitrogen 37 mg/dL (9-20); Calcium 7.5 mg/dL (8.4-10.2); Carbon Dioxide 30 mmol/L (22-30); Chloride 94 mmol/L (98-107); Estimated CRCL calculation 40 ml/min; Estimated Glomerular Filt Rate 54; Glucose 127 mg/dL (75-110); Potassium 3.9 mmol/L (3.4-5.0); Sodium 131 mmol/L (137-145)
--- NOTE | 2019-12-01 16:46 | PM.IMPN ---
Progress Note: A&P Assessment and Plan (1) Gastric perforation: Code(s): K25.5 - Chronic or unspecified gastric ulcer with perforation Status: Acute Assessment and Plan: He is not a good candidate for surgery given his multiple comorbidities ( 3 or more organ systems in failure at this time respiratory, renal and GI, functional quadriplegia bedridden ). Completed antibiotics and antifungal medications for peritonitis.. Poor prognosis, family has not meet with hospice yet. family still has not decided 12/01/19 16:46 patient is still on vent an attempt was made to feed through G-tube however patient vomited, will continue TPN prognosis is poor family is not deciding about hospice, D/W Dr. Estrada will refer patient for LTAC admission, patient is seen by barrel rifler and receiving dialysis today and further recommendation to follow (2) Severe sepsis: Code(s): A41.9 - Sepsis, unspecified organism; R65.20 - Severe sepsis without septic shock Status: Acute Assessment and Plan: Likely secondary to peritonitis, his dialysis catheter was removed however now he has a gastric perforation leaking into the peritoneum. Not on vasopressors now. Completed antibiotics (3) ESRD (end stage renal disease) on dialysis: Code(s): N18.6 - End stage renal disease; Z99.2 - Dependence on renal dialysis Status: Acute Assessment and Plan: cont HD thru RIJ HD cath (4) Ventilator dependence: Code(s): Z99.11 - Dependence on respirator [ventilator] status Status: Acute Assessment and Plan: Remains on ventilatory support. Subjective Date/time seen: 12/01/19 16:46 patient is still on vent an attempt was made to feed through G-tube however patient vomited, will continue TPN prognosis is poor family is not deciding about hospice, D/W Dr. Estrada will refer patient for LTAC admission, patient is seen by barrel rifler and receiving dialysis today and further recommendation to follow Review of Systems Review of Systems: ROS unobtainable: Yes unobtainable due to endotracheal tube Exam Narrative: Exam Narrative: elderly frail Const: General: comfortable and no acute distress Other: Chronically ill. HENMT: General nose exam: Normal nares present Other: trach in place Eyes: General: appearance normal, both eyes and all related structures Sclera: sclerae normal Neck: Neck: supple Other: trach in place Resp: Effort & Inspection: normal respiratory effort Auscultation: clear to auscultation bilaterally, crackles, rhonchi and diminished lung sounds Other: bilateral poor air entry with harsh breath sounds Cardio: Rate: regular rate Rhythm: regular rhythm GI: Auscultation: normal bowel sounds Other: Non distended, soft Skin: General skin exam: normal color Neuro: Other: on vent Extrem: General: normal to inspection Other: edema in both lower extremities. Psych: Other: on vent Objective Data Vital Signs Vital Signs: Vital Signs - 24 hr 11/30/19 17:24 11/30/19 18:00 11/30/19 20:00 Temperature 98 F Pulse Rate 104 H 108 H 96 Respiratory Rate 18 Blood Pressure 105/62 Pulse Oximetry 99 100 11/30/19 21:02 11/30/19 21:12 11/30/19 22:00 Temperature Pulse Rate 96 94 93 Respiratory Rate 37 H 33 H Blood Pressure Pulse Oximetry 100 11/30/19 23:30 12/01/19 00:00 12/01/19 02:00 Temperature 98.1 F Pulse Rate 94 94 99 Respiratory Rate 18 Blood Pressure 105/56 L Pulse Oximetry 100 100 12/01/19 03:18 12/01/19 03:20 12/01/19 03:28 Temperature Pulse Rate 95 95 97 Respiratory Rate 36 H 29 H Blood Pressure Pulse Oximetry 100 12/01/19 04:00 12/01/19 05:17 12/01/19 06:00 Temperature 97.9 F Pulse Rate 96 96 100 Respiratory Rate 18 Blood Pressure 110/66 Pulse Oximetry 100 99 12/01/19 08:00 12/01/19 08:15 12/01/19 08:28 Temperature 98.1 F Pulse Rate 101 H 108 H 98 Respiratory Rate 29 H
[2019-12-01 18:44] LABS: Glucose Point of Care 119 (65-105)
[2019-12-01 20:44] LABS: Glucose Point of Care 123 (65-105)
[2019-12-02] VITALS (25 sets, daily range): BP systolic 95–121; BP diastolic 48–78; PULSE 99–118; RESP 20–31; TEMP 36.4–37.4; O2SAT 98–100
[2019-12-02] MEDS: METOCLOPRAMIDE HCL 10 MG/10 ML SOLN UDC 5 MG FEED TUBE ×5 (00:02→23:44)
[2019-12-02] MEDS: SUCRALFATE SUSP 100 MG/ML 10 ML UDC 1000 MG PO ×5 (00:02→23:44)
[2019-12-02 00:04] LABS: Glucose Point of Care 141 (65-105)
[2019-12-02] MEDS: IPRATROPIUM BR 0.02% INH SOLN 0.5 MG/2.5 ML VIAL INHALATION ×5 (01:53→20:34)
[2019-12-02] MEDS: HEPARIN SOD/D5W 100 UNITS/ML 25,000 UNITS/250 ML BAG 11 UNITS IV CONT (03:51)
[2019-12-02 04:41] LABS: Hematocrit 23.3 % (42.0-52.0); Hemoglobin 7.6 g/dL (14.0-18.0); Mean Corpuscular HGB Conc 32.6 g/dl (32-36); Mean Corpuscular Hemoglobin 32.5 pg (26-34); Mean Corpuscular Volume 99.6 fl (80-100); Mean Platelet Volume 10.7 fl (7.4-10.4); Platelet Count Result 293 k/mm3 (150-375); Red Blood Count 2.34 M/mm3 (4.6-6.20); Red Cell Distribution Width 18.4 % (11.5-14.5); White Blood Count 18.2 K/mm3 (4.5-10.0)
[2019-12-02 04:51] LABS: Partial Thromboplastin Time 62.9 SECONDS (22.3-36.8)
[2019-12-02 05:07] LABS: Alanine Aminotransferase 58 U/L (4-50); Albumin Level 2.5 g/dL (3.5-5.1); Alkaline Phosphatase 485 U/L (38-126); Anion Gap 9 mmol/L (8-16); Aspartate Amino Transferase 120 U/L (17-59); Bilirubin,Total 0.7 mg/dL (0.2-1.3); Blood Urea Nitrogen 53 mg/dL (9-20); Calcium 7.5 mg/dL (8.4-10.2); Carbon Dioxide 27 mmol/L (22-30); Chloride 93 mmol/L (98-107); Estimated CRCL calculation 31 ml/min; Estimated Glomerular Filt Rate 39; Glucose 96 mg/dL (75-110); Magnesium 2.1 mg/dL (1.6-2.3); Phosphorus 5.7 mg/dL (2.5-4.5); Potassium 4.3 mmol/L (3.4-5.0); Sodium 129 mmol/L (137-145)
[2019-12-02] MEDS: CENTRAL LINE FLUSH 10 ML IV PUSH ×3 (05:34→20:19)
[2019-12-02] MEDS: LEVOTHYROXINE SODIUM INJ 100 MCG/5 ML VIAL 50 MCG IV PUSH (05:34)
[2019-12-02] MEDS: HEPARIN SODIUM 5,000 UNITS/ML VIAL 2500 UNITS IV PUSH ×2 (05:42→20:17)
[2019-12-02] MEDS: FAT EMULSIONS IV 20% 250 ML 20.8 ML IVPB (09:12)
[2019-12-02] MEDS: MIDODRINE HCL 10 MG TABLET PO ×3 (09:13→17:56)
[2019-12-02] MEDS: PANTOPRAZOLE SODIUM IV 40 MG VIAL IV PUSH ×2 (09:14→20:15)
[2019-12-02] MEDS: NEOMYCIN/POLYMYXIN/BACITRACIN OINTMENT 15 GM TUBE 1 APPLIC TOPICAL (09:14)
[2019-12-02] MEDS: SILVERGEL (ELTA) 45 ML 1 APPLIC TOPICAL (09:15)
[2019-12-02] MEDS: INSULIN DETEMIR 100 UNITS/ML 12 UNITS SUB-Q ×2 (09:26→20:16)
--- NOTE | 2019-12-02 11:25 | PCDIET ---
ICU Rounding Note: Patient had emesis with tube feeding. Reglan initiated with plan to resume tube feedings today at 10mL/hr. If patient unable to tolerate, would evaluate appropriateness of jejunal feeding tube placement. In mean time, Clinimix 5 07/30 continues at 80mL/hr with 250mL 20% lipids daily which is appropriate, though patient may still benefit from electrolyte omission. Last recorded weight is 77.7kg which is stable. Bowel Motility: BM x 2 today - FMS in place Labs Reviewed: Hgb (7.6), Hct (23.3), BUN (53), Cr (1.7), Na (129), Alb (2.5), Ade Ca (8.7), PO4 (5.7) Meds Noted: Albumin, Albuterol, Heparin, Reglan, Novolog, Levemir, Atrovent, Synthroid, Midodrine, Protonix, Carafate Additional Notes: No change in wounds reported. Following daily in ICU rounds. Assessing/reassessing every Saturday/Saturday.
[2019-12-02 12:24] LABS: Glucose Point of Care 102 (65-105)
--- NOTE | 2019-12-02 12:33 | WPDINTPN ---
Progress Note: A&P Assessment and Plan (1) Acute respiratory failure: Code(s): J96.00 - Acute respiratory failure, unspecified whether with hypoxia or hypercapnia Status: Acute Assessment and Plan: - patient on mechanical ventilation - completed course of antibiotics for aspiration pneumonia - patient now status post tracheostomy on 10/30/2019 - patient had a a ultrasound-guided thoracentesis done on 10/26 on right and 150 mL fluid was removed with culture remained negative. - patient on ASV mode of ventilation and tolerating, 30% FiO2 and peep of 5 - patient was placed on PSV 20/5 yesterday but only tolerated for few minutes with respiratory rate going up into 40s - will try again today - Continue physical and occupational therapy to work with the patient (2) Severe sepsis: Code(s): A41.9 - Sepsis, unspecified organism; R65.20 - Severe sepsis without septic shock Status: Acute Assessment and Plan: RESOLVED - status post successful treatment of Linda peritonitis with anti fungal therapy For 2 weeks. 11/06/2019: CT chest/abdomen /pelvis showed perforation of the posterior fundus of the stomach with splenic infarct and fluid collection , status post CT-guided placement of a drain with purulent drainage - cultures from abscess on the posterior aspect of the stomach growing Enterococcus, - leukocytosis persists, ID following, completed Vancomycin #12/25 - 11/16/2019 abdominal x-ray with water-soluble contrast showed persistent extravasation of contrast to the defect in the gastric fundus with drainage by the left upper quadrant percutaneous drain - 11/27/2019 abdominal x-ray with water-soluble contrast showed no evident extravasation of the check did gastric contrast to suggest persistent Leak. - Discussed with Dr. Levi today who recommends resuming tube feeds if tolerated by patient - (3) Peritonitis: Onset Date: ~10/2019 Code(s): K65.9 - Peritonitis, unspecified Status: Acute Assessment and Plan: RESOLVED: status post treatment of Linda peritonitis Has completed antibiotics for Enterococcus in the peritoneal fluid. - patient has remained mildly tender in his abdomen throughout his hospital course (4) Encephalopathy: Code(s): G93.40 - Encephalopathy, unspecified Status: Acute Assessment and Plan: RESOLVING - PATIENT IS MORE AWAKE, MOUTH WORDS AND FOLLOWS SIMPLE COMMANDS - dropped his hemoglobin was no obvious bleed, patient on heparin infusion, CT scan of the brain on 11/15/2019: Unchanged mild scattered white matter hypoattenuation consistent with chronic small-vessel ischemic disease. No acute intracranial process. Increasing small left and large right otomastoiditis effusion - patient is off all sedation - EEG was done on 10/20/2019 Which showed significant slowing, likely related to severe encephalopathy. No epileptiform discharges were seen - patient did have a CT scan of the brain on 10/18/2019: was negative for any acute intracranial pathology - he does appear in significant pain and appears uncomfortable. I will continue to treat with p.r.n. fentanyl. (5) Cardiorespiratory arrest: Code(s): I46.9 - Cardiac arrest, cause unspecified Status: Acute Assessment and Plan: PEA arrest on 10/13/2019 likely due to aspiration, ROSC after 1 round of epinephrine - post arrest pt was following commands and so did not require hypothermia protocol (6) ESRD (end stage renal disease) on dialysis: Code(s): N18.6 - End stage renal disease; Z99.2 - Dependence on renal dialysis Status: Acute Assessment and Plan: patient with end-stage renal disease on peritoneal dialysis, FUNGAL PERITONITIS - removal of peritoneal dialysis catheter and insertion of right IJ tunnel dialysis catheter was done on 10/21/2019. - Patient started on hemodialysis on 10/21/2019, - [facility]
[2019-12-02 13:37] LABS: Partial Thromboplastin Time 74.6 SECONDS (22.3-36.8)
[2019-12-02 17:56] LABS: Glucose Point of Care 152 (65-105)
[2019-12-02 19:19] LABS: Partial Thromboplastin Time 66.9 SECONDS (22.3-36.8)
--- NOTE | 2019-12-02 19:40 | PM.PNNEP ---
Progress Note: A&P Assessment and Plan (1) ESRD (end stage renal disease) on dialysis: Code(s): N18.6 - End stage renal disease; Z99.2 - Dependence on renal dialysis Status: Acute Assessment and Plan: HD due tomorrow. Continue to try to remove fluid. Electrolytes look okay. (2) Gastric perforation: Code(s): K25.5 - Chronic or unspecified gastric ulcer with perforation Status: Acute Assessment and Plan: as noted by previous CT imaging Latest imaging shows no more leak. (3) Peritonitis (acute) generalized: Code(s): K65.0 - Generalized (acute) peritonitis Status: Acute Assessment and Plan: resolved (4) Hyponatremia: Onset Date: Unknown Code(s): E87.1 - Hypo-osmolality and hyponatremia Status: Acute Assessment and Plan: fluctuates -- improves with dialysis continue to follow (5) Cardiorespiratory arrest: Code(s): I46.9 - Cardiac arrest, cause unspecified Status: Acute Assessment and Plan: presumably precipitated by aspiration now has a tracheostomy remains on mechanical ventilation (6) Encephalopathy: Code(s): G93.40 - Encephalopathy, unspecified Status: Acute Assessment and Plan: slow and steady improvement noted continue supportive care Subjective Date/time seen: 12/02/19 19:40 Interval history: patient is awake. Not very interactive. Comfortable in bed. Still on the ventilator. Due for dialysis tomorrow Exam Narrative: Exam Narrative: WDWN in NAD skin no rash head ncat lungs clear cor reg no rub abd BS+ nontender and soft ext no edema. Objective Data Vital Signs Vital Signs: Vital Signs - 24 hr 12/01/19 19:48 12/01/19 20:00 12/01/19 22:00 Temperature 36.8 C Pulse Rate 105 H 106 H 109 H Respiratory Rate 24 H 22 H Blood Pressure 122/77 Pulse Oximetry 99 99 12/01/19 23:25 12/02/19 00:00 12/02/19 01:53 Temperature 37.3 C Pulse Rate 106 H 103 H 108 H Respiratory Rate 22 H 26 H Blood Pressure 100/51 L Pulse Oximetry 98 99 99 12/02/19 02:00 12/02/19 02:04 12/02/19 04:00 Temperature 37.1 C Pulse Rate 108 H 111 H 106 H Respiratory Rate 28 H 23 H Blood Pressure 108/64 Pulse Oximetry 99 12/02/19 06:00 12/02/19 07:44 12/02/19 07:55 Temperature Pulse Rate 112 H 108 H 104 H Respiratory Rate 20 31 H 24 H Blood Pressure 98/78 L Pulse Oximetry 99 100 12/02/19 08:00 12/02/19 10:00 12/02/19 10:38 Temperature 37.2 C Pulse Rate 111 H 99 107 H Respiratory Rate 28 H 21 H Blood Pressure 99/65 L 101/69 Pulse Oximetry 100 100 100 12/02/19 12:00 12/02/19 13:38 12/02/19 13:42 Temperature 37.4 C Pulse Rate 110 H 106 H 104 H Respiratory Rate 31 H 24 H Blood Pressure 110/53 L Pulse Oximetry 100 100 12/02/19 13:50 12/02/19 14:00 12/02/19 16:00 Temperature 37.2 C Pulse Rate 106 H 107 H 111 H Respiratory Rate 24 H 30 H 28 H Blood Pressure 95/69 L 121/51 L Pulse Oximetry 98 99 12/02/19 17:00 12/02/19 18:00 Temperature Pulse Rate 118 H 113 H Respiratory Rate 29 H Blood Pressure 98/78 L Pulse Oximetry 98 98 Intake/Output Intake/Output: Intake & Output 11/29/19 11/30/19 12/01/19 12/02/19 23:59 23:59 23:59 23:59 Intake Total 2565 2595 2762 2643.4 Output Total 199 98 4770 250 Balance 1960 2545 452 2393.4 Meds/Results Medications: Active Medications Generic Name Dose Route Start Last Admin Trade Name Giuchoq PRN Reason Stop Dose Admin Acetaminophen 650 mg 11/20/19 16:02 11/29/19 00:37 Tylenol Elixir FEED TUBE 650 mg Q6H PRN Administration Mild Pain (1-3) or Fever Albuterol 2.5 mg 10/29/19 11:48 11/27/19 20:14 Albuterol Sulf Neb 2.5mg/0.5ml INHALATION 12/26/19 11:49 2.5 mg Q4HRT PRN Administration Wheezing or high peak pressure Alteplase, Recombinant 2 mg 11/14/19 07:02 11/14/19 07:56 Cathflo Activase IV PUSH 2 m
[2019-12-02 23:23] LABS: Glucose Point of Care 208 (65-105)
[2019-12-02] MEDS: HEPARIN SOD/D5W 100 UNITS/ML 25,000 UNITS/250 ML BAG 13 UNITS IV CONT (23:47)
[2019-12-02] MEDS: INSULIN ASPART (*BKC) 100 UNITS/ML SUB-Q (23:49)
[2019-12-03] VITALS (37 sets, daily range): BP systolic 76–122; BP diastolic 49–87; PULSE 86–129; RESP 16–38; TEMP 34.9–36.9; O2SAT 96–100
[2019-12-03] MEDS: IPRATROPIUM BR 0.02% INH SOLN 0.5 MG/2.5 ML VIAL INHALATION ×3 (01:30→15:20)
[2019-12-03 04:43] LABS: Partial Thromboplastin Time 84.7 SECONDS (22.3-36.8)
[2019-12-03 04:45] LABS: Albumin Level 2.4 g/dL (3.5-5.1); Anion Gap 10 mmol/L (8-16); Blood Urea Nitrogen 72 mg/dL (9-20); Calcium 7.7 mg/dL (8.4-10.2); Carbon Dioxide 26 mmol/L (22-30); Chloride 91 mmol/L (98-107); Estimated CRCL calculation 24 ml/min; Estimated Glomerular Filt Rate 29; Glucose 118 mg/dL (75-110); Phosphorus 7.8 mg/dL (2.5-4.5); Potassium 4.4 mmol/L (3.4-5.0); Sodium 127 mmol/L (137-145)
[2019-12-03] MEDS: CENTRAL LINE FLUSH 10 ML IV PUSH ×2 (05:24→20:16)
[2019-12-03] MEDS: SUCRALFATE SUSP 100 MG/ML 10 ML UDC 1000 MG PO ×3 (05:24→18:47)
[2019-12-03] MEDS: METOCLOPRAMIDE HCL 10 MG/10 ML SOLN UDC 5 MG FEED TUBE ×3 (05:24→18:47)
[2019-12-03] MEDS: LEVOTHYROXINE SODIUM INJ 100 MCG/5 ML VIAL 50 MCG IV PUSH (05:24)
[2019-12-03] MEDS: MIDODRINE HCL 10 MG TABLET PO ×3 (08:06→18:25)
[2019-12-03] MEDS: PANTOPRAZOLE SODIUM IV 40 MG VIAL IV PUSH (08:06)
[2019-12-03] MEDS: SILVERGEL (ELTA) 45 ML 1 APPLIC TOPICAL (08:06)
[2019-12-03] MEDS: NEOMYCIN/POLYMYXIN/BACITRACIN OINTMENT 15 GM TUBE 1 APPLIC TOPICAL (08:07)
[2019-12-03] MEDS: oxyCODONE/ACETAMINOPHEN (*CRX) 5-325 MG TABLET 1 TABLET PO ×2 (08:15→13:14)
[2019-12-03] MEDS: INSULIN DETEMIR 100 UNITS/ML 12 UNITS SUB-Q (08:15)
[2019-12-03] MEDS: FAT EMULSIONS IV 20% 250 ML 20.8 ML IVPB (08:15)
[2019-12-03] MEDS: ALBUMIN HUMAN 25% 12.5 GM/50ML 50 ML IVPB (09:37)
--- NOTE | 2019-12-03 09:38 | WPDINTPN ---
Progress Note: A&P Assessment and Plan (1) Acute respiratory failure: Code(s): J96.00 - Acute respiratory failure, unspecified whether with hypoxia or hypercapnia Status: Acute Assessment and Plan: - patient on mechanical ventilation - completed course of antibiotics for aspiration pneumonia - patient now status post tracheostomy on 10/30/2019 - patient had a a ultrasound-guided thoracentesis done on 10/26 on right and 150 mL fluid was removed with culture remained negative. - patient on ASV mode of ventilation and tolerating, 30% FiO2 and peep of 5 - patient was placed on PSV 20/5 yesterday but only tolerated for few minutes with respiratory rate going up into 40s - will try again today - Continue physical and occupational therapy to work with the patient (2) Severe sepsis: Code(s): A41.9 - Sepsis, unspecified organism; R65.20 - Severe sepsis without septic shock Status: Acute Assessment and Plan: RESOLVED - status post successful treatment of Linda peritonitis with anti fungal therapy For 2 weeks. 11/06/2019: CT chest/abdomen /pelvis showed perforation of the posterior fundus of the stomach with splenic infarct and fluid collection , status post CT-guided placement of a drain with purulent drainage - cultures from abscess on the posterior aspect of the stomach growing Enterococcus, - leukocytosis persists, ID following, completed Vancomycin #12/25 - 11/16/2019 abdominal x-ray with water-soluble contrast showed persistent extravasation of contrast to the defect in the gastric fundus with drainage by the left upper quadrant percutaneous drain - 11/27/2019 abdominal x-ray with water-soluble contrast showed no evident extravasation of the check did gastric contrast to suggest persistent Leak. - (3) Abdominal pain: Qualifiers: Abdominal location: generalized Qualified Code(s): R10.84 - Generalized abdominal pain Code(s): R10.9 - Unspecified abdominal pain Status: Acute Assessment and Plan: patient has been slightly diffuse tender in his abdomen throughout his hospital course but today he appeared in more than usual discomfort and pointed towards abdomen. But appeared Distended which could also be positional. G-tube was hooked up to suction and large amount of air was sucked out along with small amount of feed . Patient does have bowel sounds. KUB was done showed Nonspecific bowel gas pattern. No definite obstruction. I will add a scheduled Percocet low-dose for pain control. Also, I will request a Dobbhoff placement for post pyloric feeding. Continue G-tube to low intermittent suction. Will discuss with surgery (4) Dietary counseling and surveillance: Code(s): Z71.3 - Dietary counseling and surveillance Status: Acute Assessment and Plan: tube feeds were held due to gastric perforation and and were resumed 12/[address] Levi - few hours later patient vomited and tube feeds were suctioned from mouth. Tube feeds were held and patient was started on Reglan - 12/01 Tube feeds were resumed at a lower rate of 10 cc and and nurse noticed the patient was spitting out tube feeds. His belly appeared of distended today and tube wheezes. And G-tube was hooked up to suction and large amount of air was sucked out along with small amount of feed - I will request a Dobbhoff placement for post pyloric feeding - patient started on TPN on 11/07/2019, tolerating. Continue TPN at goal rate until tube feeds as tolerated (5) Peritonitis: Onset Date: ~10/2019 Code(s): K65.9 - Peritonitis, unspecified Status: Acute Assessment and Plan: RESOLVED: status post treatment of Linda peritonitis Has completed antibiotics for Enterococcus in the peritoneal fluid. - patient has remained mildly tender in his abdomen throughout his hospital course (6) Encephalopathy: Code(s):
[2019-12-03] MEDS: EPOETIN ALFA-EPBX 10,000 UNITS/ML VIAL 20000 UNITS IV PUSH (10:32)
--- NOTE | 2019-12-03 11:00 | PCDIET ---
ICU Rounding Note: Pt current nutrition is TPN 07/30 with 20% lipids at 80ml/hr Nutrition recommendation: Agree, providing 1863kcals, 98g protein, 2170ml of free water, meeting 100% of needs Last recorded weight is 77.5kg, stable Bowel Motility:diarrhea Labs Reviewed:Alb 2.4, Na 127, GFR 29, BUN 72, Cr 2.20, Glucose 118, PO4 7.8 Meds Noted:Reglan, Protonix, Albumin, Heparin, Insulin, synthroid Additional Notes: Pt EN on hold due to intolerance. Pt with emesis again. No trickle feeds planned at this time. Plans for dobhoff later today for improved EN tolerance. KUB ordered and unremarkable according to RN. Abdomen distended, diarrhea. Plans to provide some meds via G tube vs drip (heparin). Weeping and wounds (rt posterior leg, left heel, coccyx, calves, posterior neck). We will f/u for EN tolerance, adequate intake, wt, labs, skin every T/F. Following daily in ICU rounds.
[2019-12-03 11:53] LABS: Glucose Point of Care 100 (65-105)
[2019-12-03] MEDS: HEPARIN SODIUM 1,000 UNITS/ML VIAL 1000 UNITS IV PUSH (12:10)
--- NOTE | 2019-12-03 16:27 | PM.IMPN ---
Progress Note: A&P Assessment and Plan (1) Gastric perforation: Code(s): K25.5 - Chronic or unspecified gastric ulcer with perforation Status: Acute Assessment and Plan: He is not a good candidate for surgery given his multiple comorbidities ( 3 or more organ systems in failure at this time respiratory, renal and GI, functional quadriplegia bedridden ). Completed antibiotics and antifungal medications for peritonitis.. Poor prognosis, family has not meet with hospice yet. family still has not decided 12/03/19 16:27 patient is still on vent an attempt was made to feed through G-tube however patient vomited, will continue TPN prognosis is poor family is not deciding about hospice, on 11/26 patient had small-bowel series did not show any extravasation of contrast and patient was start low-dose ET tube feeding however patient and a G-tube vomiting NG tube feeding was stopped, today patient had Dobbhoff placed to start feeding below pyloric, patient is just return from the radiology department after he had Dobbhoff placed. will continue to monitor prognosis poor (2) Severe sepsis: Code(s): A41.9 - Sepsis, unspecified organism; R65.20 - Severe sepsis without septic shock Status: Acute Assessment and Plan: Likely secondary to peritonitis, his dialysis catheter was removed however now he has a gastric perforation leaking into the peritoneum. Not on vasopressors now. Completed antibiotics (3) ESRD (end stage renal disease) on dialysis: Code(s): N18.6 - End stage renal disease; Z99.2 - Dependence on renal dialysis Status: Acute Assessment and Plan: cont HD thru RIJ HD cath (4) Ventilator dependence: Code(s): Z99.11 - Dependence on respirator [ventilator] status Status: Acute Assessment and Plan: Remains on ventilatory support. Subjective Date/time seen: 12/03/19 16:27 patient is still on vent an attempt was made to feed through G-tube however patient vomited, will continue TPN prognosis is poor family is not deciding about hospice, on 11/26 patient had small-bowel series did not show any extravasation of contrast and patient was start low-dose ET tube feeding however patient and a G-tube vomiting NG tube feeding was stopped, today patient had Dobbhoff placed to start feeding below pyloric, patient is just return from the radiology department after he had Dobbhoff placed. will continue to monitor prognosis poor Review of Systems Review of Systems: ROS unobtainable: Yes unobtainable due to endotracheal tube Exam Const: General: comfortable and no acute distress HENMT: General nose exam: Normal nares present Other: Dobbhoff in place, Eyes: Sclera: sclerae normal Neck: Other: with a trach Resp: Other: bilateral poor air entry with harsh breath sound Cardio: Rate: regular rate Rhythm: regular rhythm GI: Auscultation: normal bowel sounds Skin: General skin exam: normal color Neuro: Other: patient on vent Extrem: General: normal to inspection Psych: Other: patient on vent Objective Data Vital Signs Vital Signs: Vital Signs - 24 hr 12/02/19 17:00 12/02/19 18:00 12/02/19 20:00 Temperature 97.6 F Pulse Rate 118 H 113 H 107 H Respiratory Rate 29 H 29 H Blood Pressure 98/78 L 116/68 Pulse Oximetry 98 98 98 12/02/19 20:35 12/02/19 20:36 12/02/19 20:43 Temperature Pulse Rate 109 H 109 H 108 H Respiratory Rate 29 H 26 H Blood Pressure Pulse Oximetry 98 12/02/19 22:00 12/02/19 23:00 12/03/19 00:00 Temperature 97.6 F Pulse Rate 112 H 104 H 103 H Respiratory Rate 24 H 22 H Blood Pressure 110/48 L 87/58 L Pulse Oximetry 98 98 98 12/03/19 01:33 12/03/19 01:37 12/03/19 01:43 Temperature Pulse Rate 127 H 127 H 129 H Respiratory Rate 38 H 34 H Blood Pressure Pulse Oximetry 98 12/03/19 02:00 12/03/19 04:00 12/03/19 05:00 Temperature 97.7 F Pulse Rate 122 H 102 H 110 H Re
--- NOTE | 2019-12-03 16:49 | PM.PNGS ---
Progress Note: A&P Assessment and Plan (1) Gastric perforation: Code(s): K25.5 - Chronic or unspecified gastric ulcer with perforation Status: Acute Assessment and Plan: Now resolved, according to a study about 7 days ago. However, today's Gastrografin study through the G-tube again seems indicate very small area of leakage into the left upper quadrant that does not reach the percutaneous pigtail catheter. Will put the G-tube back on suction and continue Carafate. Since we will be using the G tube for tube feedings I think it is okay continue this treatment for now and see how the patient does. Additional Plan The last remaining SILVA drain from left lower quadrant has now been out since 11/15. The left upper quadrant drain that was in the lesser sac was removed 11/02. Drainage from the left upper quadrant pigtail catheter placed by CT guidance has been 0 cc and 10 cc respectively for the last 2 days. It looks mildly purulent. A 11/26 Contrast injection at the stomach through the G-tube showed no extravasation. Therefore, agree with proceeding to start slow drip antral elemental tube feedings he the G-tube . This is been tried twice in the last 2 days now but by the evening even though residual checks have not been duly much from the G-tube the nurses have thought that they noted tube feeding in the back of the patient's throat. Therefore the tube feedings were put on hold and the patient was sent for the naso duodenal feeding tube listed above in his present illness. Contrast studies during this placement suggest the possibility of a very thin rim of extravasation from the fundus of the stomach again. However, our plan will be to feed through the new nasal duodenal tube in put the other on suction but still give Carafate through the G-tube in clamp it periodically. Therefore if the family decides to continue doing everything I think this still reasonable plan. Tube feedings through the nasal do the known tube could be advanced to goal unless there is significant increase NG tube drainage. Then if the family does decided to withdraw care patient probably will have a fairly quick demise since he has shown several times that he fails weaning parameters. Will await the family's decision but start tube feedings at a slow rate through the nasal duodenal tube until they do make that decision. Will have the nurse place the G-tube to low intermittent suction at this time. I think clean hold off starting any antibiotics for the possibility of some leakage from the stomach until we get a CBC tomorrow and know whether not the patient's family still wants to continue full medical intervention. Subjective Subjective Date/Time Seen: 12/03/19 16:49 Patient lying in bed on ventilator. Situation discussed with his nurse. Family is trying to come to the decision to withdraw care since the patient is not seeming to improve and is not able to come off the ventilator. Today before this decision seemed to be more likely the patient went to Radiology for the placement of a duodenal feeding tube. Apparently during this procedure, dye contrast injection through both the duodenal feeding tube, which is nasoduodenal, and through the G-tube revealed the possibility still of a very tiny leak from the fundus of the stomach up toward the subphrenic area on the left. This did not extend all the way to the current percutaneous pigtail drain in the left upper quadrant. That drain is also been recorded as 0 drainage for the last 2 days, however when I compressed the billows/suction on that drain there is probably at least 10 cc in there today. Review of Systems Review of Systems: ROS unobtainable: Yes unobtainable due to medical condition Exam Narrative: Exam Narrative: afebrile Const: General: comfortable, no acute distress, ill appearing chronically and tired appearing Nutritional Appearance: average body habitus Limitations: no limi
--- NOTE | 2019-12-03 17:20 | PM.PNNEP ---
Progress Note: A&P Assessment and Plan (1) ESRD (end stage renal disease) on dialysis: Code(s): N18.6 - End stage renal disease; Z99.2 - Dependence on renal dialysis Status: Acute Assessment and Plan: HD ongoing. Continue to try to remove fluid. Electrolytes look okay. (2) Gastric perforation: Code(s): K25.5 - Chronic or unspecified gastric ulcer with perforation Status: Acute Assessment and Plan: as noted by previous CT imaging Latest imaging shows no more leak. (3) Peritonitis (acute) generalized: Code(s): K65.0 - Generalized (acute) peritonitis Status: Acute Assessment and Plan: resolved (4) Hyponatremia: Onset Date: Unknown Code(s): E87.1 - Hypo-osmolality and hyponatremia Status: Acute Assessment and Plan: This is due to free water intake. Follow the sodium along. (5) Cardiorespiratory arrest: Code(s): I46.9 - Cardiac arrest, cause unspecified Status: Acute Assessment and Plan: presumably precipitated by aspiration now has a tracheostomy remains on mechanical ventilation (6) Encephalopathy: Code(s): G93.40 - Encephalopathy, unspecified Status: Acute Assessment and Plan: slow and steady improvement noted continue supportive care Subjective Date/time seen: 12/03/19 17:20 Interval history: patient is awake. Not very interactive. Comfortable in bed. Still on the ventilator. He is on dialysis. He was seen at 8:40 a.m.. He just got on the machine. Will try midodrine and albumin to support blood pressure. Review of Systems Cardiovascular: Cardiovascular: Reports no additional cardiovascular complaints Respiratory: Respiratory: Reports no additional respiratory complaints Gastrointestinal: Gastrointestinal: Reports no additional gastrointestinal complaints Genitourinary: Genitourinary: Reports no additional male genitourinary complaints Exam Narrative: Exam Narrative: Well developed chronically ill-looking gentleman on the ventilator in the ICU Skin no rash Extremities 2+ presacral edema Lungs symmetric and coarse Heart irregularly irregular rhythm no rub Abdomen bowel sounds positive hypoactive soft Objective Data Vital Signs Vital Signs: Vital Signs - 24 hr 12/02/19 18:00 12/02/19 20:00 12/02/19 20:35 Temperature 36.4 C Pulse Rate 113 H 107 H 109 H Respiratory Rate 29 H 29 H 29 H Blood Pressure 98/78 L 116/68 Pulse Oximetry 98 98 12/02/19 20:36 12/02/19 20:43 12/02/19 22:00 Temperature Pulse Rate 109 H 108 H 112 H Respiratory Rate 26 H 24 H Blood Pressure 110/48 L Pulse Oximetry 98 98 12/02/19 23:00 12/03/19 00:00 12/03/19 01:33 Temperature 36.4 C Pulse Rate 104 H 103 H 127 H Respiratory Rate 22 H 38 H Blood Pressure 87/58 L Pulse Oximetry 98 98 12/03/19 01:37 12/03/19 01:43 12/03/19 02:00 Temperature Pulse Rate 127 H 129 H 122 H Respiratory Rate 34 H 28 H Blood Pressure 102/69 Pulse Oximetry 98 96 12/03/19 04:00 12/03/19 05:00 12/03/19 06:00 Temperature 36.5 C Pulse Rate 102 H 110 H 108 H Respiratory Rate 20 21 H Blood Pressure 104/63 93/52 L Pulse Oximetry 100 100 100 12/03/19 08:00 12/03/19 08:15 12/03/19 08:34 Temperature 36.9 C 36.9 C Pulse Rate 109 H 104 H 105 H Respiratory Rate 29 H 27 H Blood Pressure 96/54 L 116/64 104/87 Pulse Oximetry 100 100 12/03/19 08:45 12/03/19 09:00 12/03/19 09:10 Temperature Pulse Rate 108 H 115 H 113 H Respiratory Rate 28 H Blood Pressure 109/85 85/66 L Pulse Oximetry 98 12/03/19 09:15 12/03/19 09:18 12/03/19 09:30 Temperature Pulse Rate 110 H 110 H 108 H Respiratory Rate 28 H Blood Pressure 94/57 L 89/59 L Pulse Oximetry 12/03/19 09:45 12/03/19 10:00 12/03/19 10:15 Temperature Pulse Rate 113 H 108 H 105 H Respiratory Rate 23 H Blood Pressure 76/56 L 91/52 L 10
[2019-12-03 18:48] LABS: Glucose Point of Care 140 (65-105)
[2019-12-03] MEDS: MORPHINE SULFATE INJ (*CRX) 50 MG in SODIUM CHLORIDE 0.9% IV 95 ML IV CONT (20:16)
[2019-12-03] MEDS: LORazepam INJ (*CRX) 2 MG/ML VIAL 1 MG IV PUSH (20:31)
--- NOTE | 2019-12-03 20:50 | ADMGEN ---
This patient, Ángel Fung, was admitted to Intensive Care Unit-9. Patient/family oriented to hospital policies and general routines including ID bracelet, bed and alarms, visiting hours, pain management, procedures, bathroom and other care routines, personal items, smoking policy, room service/diet, and visiting hours. Valuables list has been completed. Information on how to activate the Rapid Response Team has been discussed. Patient/Family are encouraged to report perceived risks to care and to ask questions if they do not understand what they are told or what they should do.
--- NOTE | 2019-12-03 22:29 | PC.NURSE ---
At the time of 2202 patient respirations ceased and no pulse was found. Verified by Harrison Cage RN as well.
--- NOTE | 2019-12-03 22:33 | PC.NURSE ---
This patient, Ángel Fung, was transferred to Replaced by [facility] on 12/03/19 at 2043. Personal belongings sent with patient. Belongings list checked family at bedside to verify belongings. Report given to Mercedes RN. Appropriate documentation sent with patient.
--- NOTE | 2019-12-24 14:13 | PM.DDS ---
Discharge Sum: Prov Provider Primary care physician: Eric Xiao MD Admitting provider: Kvng Arizmendi MD Consults: 10/13/19 Consult to Physician Routine Comment: Consulting Provider: Cezar Joseph Reason for consultation: ESRD on peritoneal dialysis, abd pain Has provider been notified: Yes Consult to Physician Routine Comment: Consulting Provider: Iggy Levi Reason for consultation: Cholelithiasis, GB thickening, abd pain Has provider been notified: Yes Consult to Physician Routine Comment: Consulting Provider: Sheng Lopez call center coordinator/MD group to consult: Dr. Lopez Reason for consultation: cardiac arrest Has provider been notified: Yes 10/15/19 13:12 Consult to Dietitian Routine Reason for Consult:: TPN 10/19/19 10:03 Consult to Physician Routine Comment: called cell and notified Consulting Provider: Abiodun Jimenez call center coordinator/MD group to consult: NEUROLOGY Reason for consultation: acute encephalopathy Has provider been notified: Yes 10/23/19 Wound/ET Consult Routine Reason for Consult:: new open area on buttock 10/26/19 08:00 Consult to Physician Routine Comment: Consulting Provider: Faisal Schroeder call center coordinator/MD group to consult: Dr. Schroeder (call on Saturday) Reason for consultation: PEG TUBE placement Has provider been notified: Yes Consult to Physician Routine Comment: Consulting Provider: Vamsi Alcala call center coordinator/MD group to consult: ENT (Call on Saturday) Reason for consultation: Tracheostomy placement Has provider been notified: Yes 10/29/19 Consult to Physician Routine Comment: has already seen patient and notified Consulting Provider: Iggy Levi call center coordinator/MD group to consult: Dr Levi, surgery Reason for consultation: surgical G tube Has provider been notified: Yes 11/04/19 Consult to Physician Routine Comment: OFFICE NOTIFIED OF CONSULT Consulting Provider: Osvaldo Barber call center coordinator/MD group to consult: Pulmonology Reason for consultation: Resp Failure Has provider been notified: Yes 11/07/19 13:56 Consult to Dietitian Routine Reason for Consult:: TPN Discharge Sum: Summary Date and Time Date of admission: 10/13/19 13:39 Date of : 12/03/19 Time of : 22:03 Summary Details: patient is still on vent an attempt was made to feed through G-tube however patient vomited, will continue TPN prognosis is poor family is not deciding about hospice, on 11/26 patient had small-bowel series did not show any extravasation of contrast and patient was start low-dose ET tube feeding however patient and a G-tube vomiting NG tube feeding was stopped, today patient had Dobbhoff placed to start feeding below pyloric, patient is just return from the radiology department after he had Dobbhoff placed. will continue to monitor prognosis poor, patient on 12/03/2019 at 22:03 Additional Data Confirmation of as documented by pronouncing clinician: no pulse, no respirations, no heart sounds and pupils fixed and dilated Family: contacted Attending/PCP notified?: Yes Attending physician: Radha Cross MD Was code activated?: No Autopsy requested?: No fur examiner notified?: Yes Organ bank notified?: Yes Advance directives: No Hospice patient?: No
== END 2019-12-03 22:03 | disposition expired | DRG 3 ==
LOC: ANHED 14:00 → ANHIMU 14:41 → ANHICU 10-14 02:02 → ANH3MED 12-03 23:39 → ANHICU 12-07 12:19 → ANHIMU 12-07 12:19
PROVIDERS: Internal Medicine; Internal Medicine Critical Care Medicine; Internal Medicine Gastroenterology; Internal Medicine Nephrology; Otolaryngology; Physician Assistant; Surgery; Admitting Provider Internal Medicine; Emergency Provider Emergency Medicine; PCP Internal Medicine; Visit Provider Family Medicine
PROC: 0WPG4YZ Removal of Other Device from Peritoneal Cavity, Percutaneous Endoscopic Approach (ICD-10-PCS; CPT 36908; principal; 2019-10-21 13:30)
PROC: 0WQF0ZZ Repair Abdominal Wall, Open Approach (ICD-10-PCS; 2019-10-21 13:30)
PROC: 0DH63UZ Insertion of Feeding Device into Stomach, Percutaneous Approach (ICD-10-PCS; CPT 43246; principal; 2019-10-29 10:30)
PROC: 0B110F4 Bypass Trachea to Cutaneous with Tracheostomy Device, Open Approach (ICD-10-PCS; principal; 2019-10-30 08:30)
PROC: 0DH60UZ Insertion of Feeding Device into Stomach, Open Approach (ICD-10-PCS; CPT 49441; 2019-10-30 08:30)
PROC: 0DH60UZ Insertion of Feeding Device into Stomach, Open Approach (ICD-10-PCS; CPT 49441; principal; 2019-10-30 15:15)
DX: T85.71XA Infection and inflammatory reaction due to peritoneal dialysis catheter, initial encounter (principal); K65.0 Generalized (acute) peritonitis; J69.0 Pneumonitis due to inhalation of food and vomit; J96.00 Acute respiratory failure, unspecified whether with hypoxia or hypercapnia; A41.9 Sepsis, unspecified organism; R65.21 Severe sepsis with septic shock; N18.6 End stage renal disease; K25.5 Chronic or unspecified gastric ulcer with perforation; K65.1 Peritoneal abscess; B37.89 Other sites of candidiasis; I12.0 Hypertensive chronic kidney disease with stage 5 chronic kidney disease or end stage renal disease; G93.40 Encephalopathy, unspecified; E87.1 Hypo-osmolality and hyponatremia; N39.0 Urinary tract infection, site not specified; J90 Pleural effusion, not elsewhere classified; Z99.11 Dependence on respirator [ventilator] status; I46.9 Cardiac arrest, cause unspecified; K52.9 Noninfective gastroenteritis and colitis, unspecified; E11.22 Type 2 diabetes mellitus with diabetic chronic kidney disease; I48.91 Unspecified atrial fibrillation; E87.6 Hypokalemia; K80.20 Calculus of gallbladder without cholecystitis without obstruction; I25.10 Atherosclerotic heart disease of native coronary artery without angina pectoris; E11.42 Type 2 diabetes mellitus with diabetic polyneuropathy; E03.9 Hypothyroidism, unspecified; D63.1 Anemia in chronic kidney disease; Y95 Nosocomial condition; I73.9 Peripheral vascular disease, unspecified; M19.90 Unspecified osteoarthritis, unspecified site; N40.0 Benign prostatic hyperplasia without lower urinary tract symptoms; Z79.4 Long term (current) use of insulin; Z95.1 Presence of aortocoronary bypass graft; Z99.2 Dependence on renal dialysis; Z85.51 Personal history of malignant neoplasm of bladder; Z87.891 Personal history of nicotine dependence; Z51.5 Encounter for palliative care
CPT/HCPCS: 31500; 32555; 36415; 36430; 36556; 36600; 43752; 49465; 51701; 70450; 71045; 71260; 74018; 74019; 74176; 74177; 75989; 76705; 77001; 80048; 80053; 80069; 80074; 80202; 81001; 82040; 82150; 82247; 82274; 82306; 82375; 82465; 82533; 82565; 82805; 82945; 82947; 83050; 83605; 83615; 83690; 83735; 83880; 83930; 83986; 84100; 84134; 84155; 84157; 84295; 84300; 84311; 84443; 84466; 84478; 84484; 85014; 85018; 85025; 85027; 85055; 85610; 85730; 86140; 86706; 86850; 86900; 86901; 86920; 86923; 87015; 87040; 87045; 87046; 87070; 87075; 87077; 87086; 87102; 87106; 87186; 87205; 87206; 87269; 87272; 87324; 87340; 87427; 88104; 88108; 88184; 88300; 88305; 89051; 90945; 93005; 94002; 94003; 94640; 95816; 96365; 96375; 97110; 97161; 97165; 97168; 99285; A9270; C1729; C1750; C1751; C1769; C8929; C9113; G0257; J0131; J0171; J0610; J0692; J0713; J1160; J1450; J1610; J1644; J1815; J1956; J2060; J2248; J2250; J2270; J2370; J2405; J2704; J2997; J3010; J3370; J3475; J3480; J7030; J7040; J7042; J7050; J7060; J7120; J7131; P9016; P9017; P9047; Q5106; Q9957; Q9967